=== PATIENT | female | born 1960 | race Caucasian/White ===

== ENCOUNTER 2018-07-25 11:47 | Inpatient (IN) | payer OTHER, SELFPAY ==
[2018-07-25] VITALS (7 sets, daily range): BP systolic 111–137; BP diastolic 57–112; PULSE 75–103; RESP 16–18; TEMP 36.6–36.8; O2SAT 95–98; BMI 27.3; BMI 26.1
--- NOTE | 2018-07-25 12:08 | CT_ITS ---
STUDY: CT ABDOMEN AND PELVIS WITHOUT CONTRAST REASON FOR EXAM: Female, 58 years old. Worsening right lower abdominal pain. RADIATION DOSAGE (If Supplied By Facility): CTDIvol = ( 7.62 ) mGy, DLP = ( 386.46 ) mGycm TECHNIQUE: Transaxial images were obtained from the dome of the diaphragm to the symphysis pubis without oral contrast, and without intravenous contrast. Sagittal and coronal images were reconstructed. Individualized dose optimization techniques were used for this CT. COMPARISON: None. FINDINGS: Minimal degree of increased markings at the lung bases suggestive of either mild scarring and/or linear atelectasis. The visualized portions of the heart are within normal limits. Normal liver. The patient is status post cholecystectomy. Normal spleen. Normal pancreas. Normal bilateral adrenal glands. Normal right kidney. Normal left kidney. There is a small hiatal hernia. Normal small intestine. Increased markings are seen within the mesenteric fat surrounding the descending colon distal to the ilio cecal valve. There is evidence of scattered diverticula in the ascending colon. This is suggestive of diverticulitis of the descending colon. No focal fluid collection or abscess is seen. Sigmoid diverticulosis. There is evidence of a retrocecal appendix. This is normal. There is diffuse atherosclerotic calcification of the abdominal aorta, without a demonstrated aneurysm. Normal inferior vena cava. Normal retroperitoneum. Normal urinary bladder. There is a small umbilical hernia containing fat. Normal osseous structures. CT/Abdomen/Pelvis without Cont IMPRESSION: Findings in keeping with diverticulitis affecting the descending colon as described. Normal appearance of the retrocecal appendix. Electronically Signed: Will Arango MD at 13:15 EST Tel [phone], Service support ,
--- NOTE | 2018-07-25 12:12 | ED.DCSUM_ITS ---
- ER Visit Summary Date of Service: 07/25/18 Chief Complaint: [] Right-sided abdominal pain for 1 week History of Present Illness: The patient is a 58 F [] right side abdominal pain for 1 week that is nonspecific it is been constant nothing makes it better or worse she is been able to eat she has had no fever no nausea or vomiting normal bowel bladder habits, prior history for cholecystectomy years ago and history of kidney stones or other GI ailments no other complaints no antibiotics no exposures to anyone who is been ill although she does report early June she did receive a flu vaccination since that time she is felt as if she has a constant flu Physical Examination: [] General, no distress resting comfortably HEENT is generally unremarkable The neck is supple no adenopathy Cardiovascular, regular rate and rhythm Lungs, clear bilateral Abdomen, soft, there is discomfort to the right lower abdomen there is some voluntary guarding there is no obvious mass, the rest exams unremarkable Extremities, no clubbing cyanosis or edema Neurologic, awake alert answering questions appropriately moving all 4 extremities Test Results: [] Emergency Department Course and Treatment: [] Her complaints IV fluids pain management CT scan urinalysis The lab results are generally unremarkable see those reports, the CT scan shows what appears to be right-sided colonic inflammation and diverticulitis, she is medicated with Dilaudid twice she received IV Cipro and metronidazole I discussed inpatient versus outpatient management with her she indicates the pain is still very severe despite the IV fluids the IV management she does not feels if she can be discharged home, at this time I spoke with hospitalist service to see her and determine disposition Treatment Plan: [] Disposition: [] Admit pending hospitalist evaluation Impression: [] Right side abdominal pain, right colonic inflammation and diverticulitis This note was generated with [employer] dictation software. It may contain incorrect words, spelling, and punctuation that were not noted in review of the chart prior to signing ED Disposition - Plan for ED Patient: Chief Complaint: Abd Pain Referrals: Ibeth Barfield MD [Primary Care Provider] -
[2018-07-25] MEDS: 0.9% Normal Saline 1,000 ML 1000 ML IV (12:23)
[2018-07-25] MEDS: Ondansetron 4 MG/2 ML Vial IV ×2 (12:30→15:26)
[2018-07-25] MEDS: HYDROmorphone 0.5 MG/0.5 ML SYRINGE IV ×2 (12:31→15:22)
[2018-07-25 12:34] LABS: Absolute Lymphocyte Count 1.27 X10^3/ul (0.83-4.51); Absolute Neutrophil Count 6.3 X10^3/uL (2.0-7.7); Basophil# 0.02 X10^3/uL; Basophil% 0.2 % (0-1); Eosinophil# 0.05 X10^3/uL; Eosinophils% 0.6 % (0-5); Hematocrit 42.9 % (37-47); Hemoglobin 13.8 g/dl (12.0-15.0); Lymphocyte # 1.27 X10^3/ul (4.0); Lymphocyte % 15.5 % (19-41); Mean Corp Hgb Conc 32.2 g/gl (32-36); Mean Corpuscular Hgb 32.5 pg (27.0-32.0); Mean Corpuscular Volume 101.2 fL (81-99); Monocyte# 0.54 X10^3/uL; Monocyte% 6.6 % (0-10); Neutrophil # 6.32 X10^3/uL (2.7-7.7); Platelet Count 201 K/mm3 (150-450); RBC Distribution Width SD 47.4 fl (35.1-43.9); Red Blood Count 4.24 M/mm3 (4.2-5.4); White Blood Count 8.2 K/mm3 (4.4-11.0)
[2018-07-25 12:35] LABS: POSITIVE COUNT NO; POSITIVE DIFFERENTIAL NO; POSITIVE MORPHOLOGY NO
[2018-07-25 12:45] LABS: Anion Gap 8 (5-15); BUN 18 mg/dL (7-18); BUN/Creat Ratio 16.4 RATIO (10-20); Calcium,Total 8.5 mg/dL (8.5-10.1); Chloride 113 mmol/L (98-107); EST Glomerular Filtration Rate 55 mL/min (>60); Est Glom Filt Rate - Afr Amer 66 mL/min (>60); Estimated Creatinine Clearance 51.39 ml/min; Glucose 103 mg/dL (74-106); Lipase 134 U/L (73-393); Potassium 4.1 mmol/L (3.5-5.1); Sodium Level 142 mmol/L (136-145)
[2018-07-25 13:47] LABS: Mucous, Urine 0 SEEN /hpf (<or=2+); Red Blood Cells-Urine 0 SEEN /hpf (0-5); Squamous Epithelial Cells - UA 0 SEEN /hpf (5-10); White Blood Cells 0 SEEN /hpf (0-5)
[2018-07-25 13:49] LABS: Color, Urine Yellow (Yellow); Glucose, Dipstick Normal (Normal); Ketone-Dipstick Negative (Negative); Leukocyte Esterase-Dipstick Negative /ul (Negative); Nitrite-Dipstick Negative (Negative); Occult Blood-Urine Negative /ul (Negative); Protein-Dipstick Negative (Negative); Specific Gravity, Urine 1.015 (1.002-1.030); Urine Bilirubin Dipstick Negative (Negative); Urine Clarity Clear (Clear); Urine Urobilinogen Normal (Normal); Urine pH 6.5 (5.0 - 8.0)
[2018-07-25 13:56] LABS: Bacteria RARE /hpf (None Seen)
--- NOTE | 2018-07-25 15:08 | PCM.HP.STD ---
Problem List (1) Diverticulitis Status: Acute (2) Anxiety and depression Status: Acute (3) Chronic back pain Status: Chronic Qualifiers: Sciatica laterality: sciatica laterality unspecified History of Present Illness Date of Admission: 07/25/18 Chief Complaint: Right sided abdominal pain ongoing for 1 week The patient is a 58 year old F past medical history of anxiety/depression, chronic back pain/pain syndrome who comes in with complaints of right-sided abdominal pain started more than a week ago. She was unable to lie on the right side to sleep. Denied any associated fever or chills or nausea or vomiting. She has a history of laparoscopic cholecystectomy and has since had chronic diarrhea. Pain is severe and unbearable. She has history of colon colonoscopy done 3 years ago in the [facility] system and a polyp was removed and she is due to have another colonoscopy done soon but there has been pushed to the end of the year. Vitals in the ED showed temperature 97.9 F, heart rate of 103, blood pressure 137/112, respiratory rate 18, SPO2 98% on room air. Admitting blood work showed RBC count of 8.2, hemoglobin 13.8, MCV 101.2, platelet count 201, sodium 142, potassium 4.1, chloride 113, bicarb 21, BUN 18, creatinine 1.10, baseline of 0.9. CT scan of the abdomen and pelvis shows diverticulitis of the ascending colon distal to the ileocecal valve. Past Medical History Past Medical History (Chronic Problems): Chronic Problems Chronic back pain (Chronic) Allergies venom-honey bee [bee venom (honey bee)] Allergy (Verified 07/25/18 11:50) Unknown morphine Adverse Reaction (Verified 07/25/18 11:50) Nausea Home Medications: Ambulatory Orders Medication Instructions Recorded ALPRAZolam [Xanax] 0.5 mg PO BID 05/15/14 Diltiazem CD [Cardizem CD] 180 mg PO DAILY 05/15/14 Duloxetine Hcl [Cymbalta] 60 mg PO BID 05/15/14 Gabapentin [Neurontin] 900 mg PO BIDCM 05/15/14 Topiramate [Topamax] 200 mg PO BID 05/15/14 proMETHazine tablet [Phenergan] 25 mg PO Q6H PRN PRN #10 tablet 05/15/14 Colestipol Tablet [Colestid Tablet] 3 tab PO DAILY 07/25/18 Fluticasone 0.05% [Flonase Nasal 2 spray NASAL DAILY 07/25/18 [place]] Sumatriptan Succinate [Imitrex] 100 mg PO X1 PRN 07/25/18 Surgical History: cholecystectomy, - - colonoscopy Psychiatric History: Anxiety, Depression CHANNEL MANAGER History: No pertinent CHANNEL MANAGER history Lives: Spouse/ Significant Other Smoking Status: Former smoker Tobacco Use: Non-smoker Alcohol: None Drugs: None - *Family History Maternal History Items: - - Brain aneurysm Paternal History Items: Heart Disease Review of Systems Constitutional: Reports: Anorexia, Weakness. Denies: Chills, Fever, Night Sweats, Weight Change Eyes: Denies: Blurred vision, Cataracts, Conjunctivae Inflammation, Pain, Redness HEENT: Denies: Difficulty Hearing, Difficulty Swallowing, Head Aches, Hearing Changes, Sinus Congestion, Sinus Drainage Cardiovascular: Denies: Chest Pain, Claudication, Chest Pressure, Orthopnea, Palpitations, Paroxysmal Noc. Dyspnea Respiratory: Denies: Cough, Hemoptysis, Shortness of Breath, Shortness of breath at rest, Shortness of breath upon exertion, Sputum production Gastrointestinal: Denies: Abdominal Pain, Constipation, Hematemesis, Hematochezia, Nausea, Vomiting Genitourinary: Denies: Dysuria, Frequency, Incontinence Musculoskeletal: Denies: Joint Pain, Joint stiffness, Joint swelling, Joint Tenderness Skin: Denies: Rash, Wounds Neurological: Denies: Numbness, Tingling, Focal weakness Psychiatric: Denies: Anxiety, Depression, Homicidal Ideations, Suicidal Ideations Hematologic/ Lymphatic: Denies: Easy Bruising, Easy Bleeding VTE Information - Inpt Only VTE Present on Admission: No VTE Pharm Prophylaxis ordered?: Yes Patient Problems: Active and Suspected Problems Diverticulitis (Acute) Anxiety and depression (Acute) - Physical Exam General: Alert, Oriented x3, Cooperative, No apparent distress HEENT: Atraumatic, PERRLA, EOMI, Normocephalic Oral: Moist Mucosa Neck: Supple, No JVD, Negative Carotid Bruits Lungs: Clear to auscultation, Normal air movement Cardiovascular: Regular rate, Regular Rhythm, Normal S1, Normal S2, No murmurs Abdomen: Bowel Sounds Present, Soft, Non-Distended, No Hepato-splenomegaly, Tender - Right lower and flank tenderness with guarding with but no rebound tenderness Extremities: No edema Skin: No rashes, No breakdown Musculoskeletal: No Tenderness to Palpation of Joints or Extremities Lymphatic: No Cervical, Supraclavicular, or Inguinal Adenopathy Neurological: Cranial nerves II-XII grossly intact, Neuro grossly intact Psych/Mental Status: Normal Affect, Appropriate Vital Signs Temp Pulse Resp BP Pulse Ox 97.9 F 78 16 120/73 96 07/25/18 11:47 07/25/18 14:00 07/25/18 14:00 07/25/18 14:00 07/25/18 14:00 Oxygen Delivery Method Room Air Weight: 74.389 kg Body Mass Index (BMI) 27.3 Laboratory Tests Past 24 Hrs 07/25/18 07/25/18 07/25/18 12:25 12:25 13:35 WBC 8.2 RBC 4.24 Hgb 13.8 Hct 42.9 MCV 101.2 H MCH 32.5 H MCHC 32.2 RDW 13.0 RDW Differential 47.4 H Plt Count 201 MPV 10.0 Immature Gran % (Auto) 0.100 Neut % (Auto) 77.0 H Lymph % (Auto) 15.5 L [place] % (Auto) 6.6 Eos % (Auto) 0.6 Baso % (Auto) 0.2 Absolute Neuts (auto) 6.3 Absolute Lymphs (auto) 1.27 Total Counted Not Reportable Sodium 142 Potassium 4.1 Chloride 113 H Carbon Dioxide 21.0 Anion Gap 8 BUN 18 Creatinine 1.10 H Estim Creat Clear Calc 51.39 Est GFR (MDRD) Af Amer 66 Est GFR (MDRD) Non-Af 55 L BUN/Creatinine Ratio 16.4 Glucose 103 Calcium 8.5 Lipase 134 Urine Color Yellow Urine Clarity Clear Urine pH 6.5 Ur Specific [place] 1.015 Urine Protein Negative Urine Glucose (UA) Normal Urine Ketones Negative Urine Occult Blood Negative Urine Nitrite Negative Urine Bilirubin Negative Urine Urobilinogen Normal Ur Leukocyte Esterase Negative Urine RBC 0 SEEN Urine WBC 0 SEEN Ur Squamous Epith Cells 0 SEEN Urine Bacteria RARE Urine Mucus 0 SEEN Assessment/Plan All Active Problems Diverticulitis (Acute) Anxiety and depression (Acute) 58 year old F with past medical history of anxiety/depression, chronic back pain/pain syndrome who comes in with complaints of right-sided abdominal pain started more than a week ago. 1. Right-sided abdominal pain secondary to acute diverticulitis, history of colonoscopy 2 years ago that showed one polyp, no fevers or chills, no leukocytosis Plan: Admit to [facility] floor, pain control with IV morphine as needed, oxycodone as needed, IV Cipro and Flagyl, n.p.o., bowel rest, advance diet as tolerated Labs in a.m. Patient will need colonoscopy in 6-8 weeks. 2. Anxiety/depression, on Xanax, Cymbalta, gabapentin, topiramate 3. Chronic diarrhea status post cholecystectomy, on colestipol 4. Hypertension, on Cardizem, continue same, monitor vitals closely 5. Dehydration, slight elevation in creatinine, continue on IV fluids, repeat BMP in a.m. 6. DVT PPx- Heparin SC Code Visit Inpatient E&M: 05043 Init Hosp L3
[2018-07-25] MEDS: Ciprofloxacin 400 MG/200 ML BAG 200 MG IV ×2 (15:22→21:15)
[2018-07-25] MEDS: 0.9% Normal Saline 1,000 ML 100 ML IV (17:17)
[2018-07-25] MEDS: Morphine 2 MG/ML Syringe 1 MG IV ×2 (17:53→20:45)
[2018-07-25] MEDS: Gabapentin 300 MG Capsule 900 MG PO (17:53)
[2018-07-25] MEDS: Rizatriptan Benzoate 10 MG Tablet PO (18:38)
[2018-07-25] MEDS: Topiramate 200 MG Tablet PO (21:03)
[2018-07-25] MEDS: Heparin Injection (Vial) 5,000 UNIT/ML VIAL 5000 UNIT SC (21:03)
[2018-07-25] MEDS: proMETHazine 25 MG/ML Syringe 6.25 MG IV (21:30)
[2018-07-26] VITALS (8 sets, daily range): BP systolic 107–130; BP diastolic 64–78; PULSE 64–76; RESP 16; TEMP 36.7–37.1; O2SAT 95–98
[2018-07-26] MEDS: Morphine 2 MG/ML Syringe 1 MG IV ×2 (01:18→06:18)
[2018-07-26] MEDS: Rizatriptan Benzoate 10 MG Tablet PO ×2 (04:42→19:47)
[2018-07-26] MEDS: 0.9% Normal Saline 1,000 ML 100 ML IV ×2 (04:49→05:19)
[2018-07-26] MEDS: Heparin Injection (Vial) 5,000 UNIT/ML VIAL 5000 UNIT SC ×3 (06:10→21:09)
[2018-07-26 06:21] LABS: Absolute Lymphocyte Count 1.08 X10^3/ul (0.83-4.51); Basophil# 0.01 X10^3/uL; Basophil% 0.2 % (0-1); Eosinophil# 0.04 X10^3/uL; Eosinophils% 0.9 % (0-5); Hematocrit 42.2 % (37-47); Hemoglobin 13.3 g/dl (12.0-15.0); Lymphocyte # 1.08 X10^3/ul (4.0); Lymphocyte % 23.6 % (19-41); Mean Corp Hgb Conc 31.5 g/gl (32-36); Mean Corpuscular Hgb 33.2 pg (27.0-32.0); Mean Corpuscular Volume 105.2 fL (81-99); Mean Platelet Vol. 10.3 fl (6.2-12.0); Monocyte% 8.8 % (0-10); Neutrophil # 3.03 X10^3/uL (2.7-7.7); Neutrophil % 66.3 % (47-70); Platelet Count 154 K/mm3 (150-450); RBC Distribution Width CV 13.2 % (11.6-14.6); RBC Distribution Width SD 50.4 fl (35.1-43.9); Red Blood Count 4.01 M/mm3 (4.2-5.4); White Blood Count 4.6 K/mm3 (4.4-11.0)
[2018-07-26 06:22] LABS: POSITIVE COUNT YES; POSITIVE DIFFERENTIAL NO; POSITIVE MORPHOLOGY NO
[2018-07-26 06:23] LABS: Differential Indicated SCAN CRITERIA MET
[2018-07-26 06:28] LABS: Anion Gap 10 (5-15); BUN 10 mg/dL (7-18); BUN/Creat Ratio 10.4 RATIO (10-20); Calcium,Total 8.1 mg/dL (8.5-10.1); Chloride 116 mmol/L (98-107); Creatinine, Serum 0.96 mg/dL (0.55-1.02); EST Glomerular Filtration Rate 64 mL/min (>60); Est Glom Filt Rate - Afr Amer 77 mL/min (>60); Estimated Creatinine Clearance 61.26 ml/min; Glucose 93 mg/dL (74-106); Potassium 4.1 mmol/L (3.5-5.1); Sodium Level 140 mmol/L (136-145)
[2018-07-26 06:40] LABS: Differential Comment SCAN; Platelet Morphology LARGE
--- NOTE | 2018-07-26 09:05 | PN_ITS ---
Patient Problems: Active and Suspected Problems Diverticulitis (Acute) Subjective: Chief complaint: Follow-up after admission for acute diverticulitis of the descending colon. Patient seen and examined. No acute events overnight. This morning, she is still complaining of right lower quadrant/right lumbar abdominal pain, 9 out of 10 in severity, aggravated by movement or taking a deep breath without associated nausea or vomiting. She denies fever chills. Vital signs are stable. - Physical Exam General: Alert, Oriented x3, Cooperative, - - He is in moderate pain. HEENT: Atraumatic, PERRLA, EOMI, Normocephalic Oral: Moist Mucosa, No Gingival or Mucosal Lesions/ Ulcerations Neck: Supple, No JVD, Negative Carotid Bruits, Trachea Midline, Thyroid Normal Size and Texture Lungs: Clear to auscultation, No rhonchi, No wheeze, No rales, Diminished Cardiovascular: Regular rate, Regular Rhythm, Normal S1, Normal S2, No murmurs, PMI Normal Abdomen: Bowel Sounds Present, Soft, Non-Distended, No Hepato-splenomegaly, Tender - Tenderness at the right lower quadrant, no guarding or rigidity. Extremities: No clubbing, No cyanosis, No edema Skin: No rashes, No breakdown Lymphatic: No Cervical, Supraclavicular, or Inguinal Adenopathy Neurological: Cranial nerves II-XII grossly intact, Motor Exam 5/5 strength throughout Psych/Mental Status: Normal Affect, Appropriate, Alert and oriented to time, place, person, mood and affect Vital Signs Temp Pulse Resp BP Pulse Ox 98.8 F 71 16 128/78 H 97 07/26/18 08:07 07/26/18 08:07 07/26/18 08:07 07/26/18 08:07 07/26/18 08:07 Oxygen Delivery Method Room Air Weight: 162 lb 0.636 oz Body Mass Index (BMI) 26.1 Intake and Output for Last 24 Hours 07/24/18 07/25/18 07/26/18 23:59 23:59 23:59 Intake Total 1382 / 1382 Balance 1382 / 1382 Laboratory Tests Past 24 Hrs 07/25/18 07/25/18 07/25/18 12:25 12:25 13:35 WBC 8.2 RBC 4.24 Hgb 13.8 Hct 42.9 MCV 101.2 H MCH 32.5 H MCHC 32.2 RDW 13.0 RDW Differential 47.4 H Plt Count 201 MPV 10.0 Immature Gran % (Auto) 0.100 Neut % (Auto) 77.0 H Lymph % (Auto) 15.5 L [place] % (Auto) 6.6 Eos % (Auto) 0.6 Baso % (Auto) 0.2 Absolute Neuts (auto) 6.3 Absolute Lymphs (auto) 1.27 Total Counted Not Reportable Differential Comment Plt Morphology Comment Sodium 142 Potassium 4.1 Chloride 113 H Carbon Dioxide 21.0 Anion Gap 8 BUN 18 Creatinine 1.10 H Estim Creat Clear Calc 51.39 Est GFR (MDRD) Af Amer 66 Est GFR (MDRD) Non-Af 55 L BUN/Creatinine Ratio 16.4 Glucose 103 Calcium 8.5 Lipase 134 Urine Color Yellow Urine Clarity Clear Urine pH 6.5 Ur Specific [place] 1.015 Urine Protein Negative Urine Glucose (UA) Normal Urine Ketones Negative Urine Occult Blood Negative Urine Nitrite Negative Urine Bilirubin Negative Urine Urobilinogen Normal Ur Leukocyte Esterase Negative Urine RBC 0 SEEN Urine WBC 0 SEEN Ur Squamous Epith Cells 0 SEEN Urine Bacteria RARE Urine Mucus 0 SEEN 07/26/18 07/26/18 05:50 05:50 WBC 4.6 RBC 4.01 L Hgb 13.3 Hct 42.2 MCV 105.2 H MCH 33.2 H MCHC 31.5 L RDW 13.2 RDW Differential 50.4 H Plt Count 154 MPV 10.3 Immature Gran % (Auto) 0.200 Neut % (Auto) 66.3 Lymph % (Auto) 23.6 [place] % (Auto) 8.8 Eos % (Auto) 0.9 Baso % (Auto) 0.2 Absolute Neuts (auto) 3.0 Absolute Lymphs (auto) 1.08 Total Counted Not Reportable Differential Comment SCAN Plt Morphology Comment LARGE Sodium 140 Potassium 4.1 Chloride 116 H Carbon Dioxide 14.0 L Anion Gap 10 BUN 10 Creatinine 0.96 Estim Creat Clear Calc 61.26 Est GFR (MDRD) Af Amer 77 Est GFR (MDRD) Non-Af 64 BUN/Creatinine Ratio 10.4 Glucose 93 Calcium 8.1 L Lipase Urine Color Urine Clarity Urine pH Ur Specific [place] Urine Protein Urine Glucose (UA) Urine Ketones Urine Occult Blood Urine Nitrite Urine Bilirubin Urine Urobilinogen Ur Leukocyte Esterase Urine RBC Urine WBC Ur Squamous Epith Cells Urine Bacteria Urine Mucus Clinical Impression(s) from Imaging Studies Abdomen/Pelvis CT 07/25/18 12:08 IMPRESSION: Findings in keeping with diverticulitis affecting the descending colon as described. Normal appearance of the retrocecal appendix. Electronically Signed: Will Arango MD at 13:15 EST Tel [phone], Service support , Medical Necessity - Tobacco Use Tobacco Use: Non-smoker Assessment/Plan All Active Problems Diverticulitis (Acute) This is a 58 years old female patient admitted because of right-sided abdominal pain and she was found to have acute diverticulitis of the descending colon. #1 acute diverticulitis of the descending colon: She is on IV ciprofloxacin and IV Flagyl. She is on IV fluids and IV morphine as needed for pain, kept on n.p.o. Her pain is well controlled. Her routine blood work was unremarkable, no leukocytosis. Lipase was normal. Vital signs are stable, afebrile. CT scan abdomen and pelvis with contrast revealed findings consistent with acute diverticulitis of the descending colon, normal appearance of retrocecal appendix. Plan: DC IV morphine, start IV Dilaudid, LFT, okay for ice chips and sips of water. #2 hypertension: Blood pressure stable, continue Cardizem. #3 migraine headaches: Stable, continue Topamax and Maxalt. #4 anxiety/depression: Xanax and Cymbalta held because she is n.p.o. #5 DVT prophylaxis: Subcu heparin. This note was generated with [employer] dictation software. It may contain incorrect words, spelling, and punctuation that were not noted in checking the note before signing. Code Visit Inpatient E&M: 90993 Subs Hosp L2
[2018-07-26] MEDS: Gabapentin 300 MG Capsule 900 MG PO ×2 (09:19→17:12)
[2018-07-26] MEDS: Multivitamins,Ther W-Minerals Tablet 1 TABLET PO (09:19)
[2018-07-26] MEDS: Ciprofloxacin 400 MG/200 ML BAG 200 MG IV ×2 (09:20→22:33)
[2018-07-26] MEDS: dilTIAZem CD 180 MG Capsule PO (09:20)
[2018-07-26] MEDS: Topiramate 200 MG Tablet PO ×2 (09:20→21:06)
[2018-07-26] MEDS: HYDROmorphone 1 MG/ML Syringe IV ×3 (09:21→21:10)
[2018-07-26] MEDS: 0.9% NaCl Peripheral Flush Adult/Peds IV (09:21)
[2018-07-26] MEDS: ALPRAZolam 0.5 MG Tablet PO (11:21)
[2018-07-26] MEDS: Budesonide 3 MG CAPSULE.EC 9 MG PO (11:21)
[2018-07-26 12:05] LABS: AST(SGOT) 510 U/L (15-37); Alanine Aminotransfer ALT/SGPT 325 U/L (13-56); Albumin, Serum 2.8 g/dL (3.2-5.0); Alkaline Phosphatase 346 U/L (45-117); Bilirubin, Direct 1.29 mg/dL (0.00-0.30); Globulin 3.2 g/dL (2.2-4.2)
--- NOTE | 2018-07-26 14:10 | CASEMGMT ---
BERNARDO MEDINA Face to Face with patient for initial transition planning/care coordination assessment. RN CM introduced self and role at [facility] [place]. Patient lying in bed, alert and oriented. Patient willing to participate in assessment and is able to answer all questions appropriately. Care providers, pharmacy, and demographics verified. Patient wishes to discharge home, denies need for home health at this time. Patient states she has no further needs or concerns at this time. CM to follow for discharge planning needs that may arise. PCP: [facility] Specialists: None Preferred Pharmacy: [facility] Insurance: MMO Prescription Benefit: MMO Living Will/HPOA: None LNOK: Living Arrangements: Patient lives with in 2 story house, able to navigate stairs. Independent at home Transportation: Self/ DME/HHC: Patient has shower chair, raised toilet seat, cane, walker. Disposition Plan: Patient to discharge home with family support and follow-up plans in place. Tonia DUKES, RN, CM
--- NOTE | 2018-07-26 14:15 | US_ITS ---
STUDY: ABDOMINAL ULTRASOUND - RIGHT UPPER QUADRANT REASON FOR VISIT: Female, 58 years old. Elevated liver function tests TECHNIQUE: Transverse and longitudinal imaging of the right upper quadrant was performed using real-time ultrasound. COMPARISON: CT abdomen and pelvis dated July 25, 2018 FINDINGS: Liver: The liver measures at least 16 cm. There is increased echogenicity of the liver. The direction of portal flow is hepatopetal. There is no demonstrated mass in the liver. Gallbladder: The patient has had prior cholecystectomy. The gallbladder wall measures mm. There is a negative sonographic Dowd's sign. There is no demonstrated pericholecystic fluid. There are no abnormalities in the lumen of the gallbladder. Common Bile Duct (C.B.D.): The common bile duct measures 9-10 mm. Pancreas: The visualized pancreas is within normal limits. There is no demonstrated mass in the pancreas. Right Kidney: The right kidney measures 10.1 cm. The right cortex measures 1.2 cm. There is no demonstrated mass in the right kidney. There is no dilatation of the collecting system. There is no demonstrated free fluid. US/Liver IMPRESSION: The liver is increased in echogenicity which can be seen with fatty infiltration. No masses are seen in the liver. The common bile duct measures 9-10 mm in diameter which is not unexpected after cholecystectomy. Electronically Signed: Isabell Harden MD at 20:29 EST Tel Direct: [phone], Service support ,
[2018-07-26] MEDS: Zolpidem Tartrate 5 MG Tablet PO (22:40)
[2018-07-27 03:00] VITALS: BP 103/64; PULSE 73; RESP 16; TEMP 36.6; O2SAT 94
[2018-07-27] MEDS: HYDROmorphone 1 MG/ML Syringe IV ×4 (05:03→21:05)
[2018-07-27] MEDS: Heparin Injection (Vial) 5,000 UNIT/ML VIAL 5000 UNIT SC ×3 (05:03→21:05)
[2018-07-27] MEDS: 0.9% Normal Saline 1,000 ML 100 ML IV ×2 (05:09→17:37)
[2018-07-27] MEDS: proMETHazine 25 MG Tablet PO (08:41)
[2018-07-27] MEDS: Topiramate 200 MG Tablet PO ×2 (08:42→21:06)
[2018-07-27] MEDS: Budesonide 3 MG CAPSULE.EC 9 MG PO (08:42)
[2018-07-27] MEDS: Gabapentin 300 MG Capsule 900 MG PO ×2 (08:42→17:34)
[2018-07-27] MEDS: dilTIAZem CD 180 MG Capsule PO (08:45)
[2018-07-27 08:49] VITALS: BP 124/78; PULSE 59; RESP 16; TEMP 36.5; O2SAT 100
[2018-07-27 08:52] LABS: Absolute Lymphocyte Count 1.11 X10^3/ul (0.83-4.51); Absolute Neutrophil Count 2.7 X10^3/uL (2.0-7.7); Basophil# 0.02 X10^3/uL; Basophil% 0.5 % (0-1); Eosinophil# 0.08 X10^3/uL; Eosinophils% 1.9 % (0-5); Hematocrit 38.2 % (37-47); Hemoglobin 12.4 g/dl (12.0-15.0); Lymphocyte # 1.11 X10^3/ul (4.0); Lymphocyte % 26.2 % (19-41); Mean Corp Hgb Conc 32.5 g/gl (32-36); Mean Corpuscular Hgb 33.2 pg (27.0-32.0); Mean Corpuscular Volume 102.1 fL (81-99); Mean Platelet Vol. 9.8 fl (6.2-12.0); Monocyte# 0.31 X10^3/uL; Monocyte% 7.3 % (0-10); Neutrophil % 63.9 % (47-70); Platelet Count 178 K/mm3 (150-450); RBC Distribution Width CV 12.5 % (11.6-14.6); RBC Distribution Width SD 46.1 fl (35.1-43.9); Red Blood Count 3.74 M/mm3 (4.2-5.4); White Blood Count 4.2 K/mm3 (4.4-11.0)
[2018-07-27 08:56] LABS: POSITIVE COUNT NO; POSITIVE DIFFERENTIAL NO; POSITIVE MORPHOLOGY NO
--- NOTE | 2018-07-27 09:04 | PCM.PROGNOTE ---
Patient Problems: Active and Suspected Problems Diverticulitis large intestine (Acute) Diverticulitis (Acute) Subjective: Chief complaint: Follow-up after admission for acute diverticulitis of the ascending colon and elevated LFT. Patient seen and examined. No acute events overnight. She still complaining of right-sided abdominal pain but slightly improved. She has been nauseated. Denies fever chills. No chest pain or shortness of breath. Her vital signs are stable. - Physical Exam General: Alert, Oriented x3, Cooperative, - - She is in moderate pain. HEENT: Atraumatic, PERRLA, EOMI, Normocephalic Oral: Moist Mucosa, No Gingival or Mucosal Lesions/ Ulcerations Neck: Supple, No JVD, Negative Carotid Bruits, Trachea Midline, Thyroid Normal Size and Texture Lungs: Clear to auscultation, Normal air movement, No rhonchi, No wheeze, No rales, Diminished Cardiovascular: Regular rate, Regular Rhythm, Normal S1, Normal S2 Abdomen: Bowel Sounds Present, Soft, Non-Distended, No Hepato-splenomegaly, Tender - Right-sided tenderness, no guarding or rigidity. No rebound tenderness. Extremities: No clubbing, No cyanosis, No edema Skin: No rashes, No breakdown Lymphatic: No Cervical, Supraclavicular, or Inguinal Adenopathy Neurological: Cranial nerves II-XII grossly intact, Motor Exam 5/5 strength throughout Psych/Mental Status: Normal Affect, Appropriate, Alert and oriented to time, place, person, mood and affect Vital Signs Temp Pulse Resp BP Pulse Ox 97.7 F L 59 L 16 124/78 H 100 07/27/18 08:49 07/27/18 08:49 07/27/18 08:49 07/27/18 08:49 07/27/18 08:49 Oxygen Delivery Method Room Air Weight: 162 lb 0.636 oz Body Mass Index (BMI) 26.1 Intake and Output for Last 24 Hours 07/25/18 07/26/18 07/27/18 23:59 23:59 23:59 Intake Total 2369 / 2369 1661 / 1661 Balance 2369 / 2369 1661 / 1661 Laboratory Tests Past 24 Hrs 07/26/18 07/27/18 07/27/18 11:10 08:30 08:30 WBC 4.2 L RBC 3.74 L Hgb 12.4 Hct 38.2 MCV 102.1 H MCH 33.2 H MCHC 32.5 RDW 12.5 RDW Differential 46.1 H Plt Count 178 MPV 9.8 Immature Gran % (Auto) 0.200 Neut % (Auto) 63.9 Lymph % (Auto) 26.2 [place] % (Auto) 7.3 Eos % (Auto) 1.9 Baso % (Auto) 0.5 Absolute Neuts (auto) 2.7 Absolute Lymphs (auto) 1.11 Total Counted Not Reportable Sodium Pending Potassium Pending Chloride Pending Carbon Dioxide Pending Anion Gap Pending BUN Pending Creatinine Pending Est GFR (MDRD) Af Amer Pending Est GFR (MDRD) Non-Af Pending BUN/Creatinine Ratio Pending Glucose Pending Calcium Pending Total Bilirubin 1.90 H Pending Direct Bilirubin 1.29 H AST 510 H Pending ALT 325 H Pending Alkaline Phosphatase 346 H Pending Total Protein 6.0 L Pending Albumin 2.8 L Pending Globulin 3.2 Clinical Impression(s) from Imaging Studies Liver Ultrasound 07/26/18 14:15 IMPRESSION: The liver is increased in echogenicity which can be seen with fatty infiltration. No masses are seen in the liver. The common bile duct measures 9-10 mm in diameter which is not unexpected after cholecystectomy. Electronically Signed: Isabell Harden MD at 20:29 EST Tel Direct: [phone], Service support , ADDENDUM: 07/26/183 Medical Necessity - Tobacco Use Smoking Status: Former smoker Tobacco Use: Non-smoker Assessment/Plan All Active Problems Diverticulitis large intestine (Acute) Diverticulitis (Acute) This is a 58 years old female patient admitted because of right-sided abdominal pain and she was found to have acute diverticulitis of the descending colon. #1 acute diverticulitis of the ascending colon: Remained on IV ciprofloxacin and IV Flagyl. Her vital signs are stable, afebrile. Repeat routine blood work was again unremarkable, no leukocytosis. Her abdominal pain minimally improved. Lipase was normal. General surgery consulted, appreciate recommendations. Plan: Continue same treatment, will start clear liquids. #2 elevated LFT: This could be due to irritation of the biliary tree because of adjacent inflamed ascending colon. Ultrasound liver revealed CBD diameter of 9-10 mm which is common after cholecystectomy, otherwise no acute pathology. LFT is trending down. Plan to continue monitor. #3 hypertension: Blood pressure stable, continue Cardizem. #4 migraine headaches: Stable, continue Topamax and Maxalt. #5 anxiety/depression: Resume Xanax and Cymbalta.. #6 DVT prophylaxis: Subcu heparin. This note was generated with [employer] dictation software. It may contain incorrect words, spelling, and punctuation that were not noted in checking the note before signing. Code Visit Inpatient E&M: 44517 Subs Hosp L2
[2018-07-27] MEDS: Ciprofloxacin 400 MG/200 ML BAG 200 MG IV ×2 (09:11→22:57)
[2018-07-27 09:17] LABS: ALB/GLOB Ratio 0.9 RATIO (0.9-2.4); AST(SGOT) 195 U/L (15-37); Alanine Aminotransfer ALT/SGPT 253 U/L (13-56); Albumin, Serum 2.9 g/dL (3.2-5.0); Alkaline Phosphatase 344 U/L (45-117); Anion Gap 11 (5-15); BUN 8 mg/dL (7-18); BUN/Creat Ratio 9.5 RATIO (10-20); Calcium,Total 8.2 mg/dL (8.5-10.1); Chloride 115 mmol/L (98-107); Creatinine, Serum 0.84 mg/dL (0.55-1.02); EST Glomerular Filtration Rate 75 mL/min (>60); Est Glom Filt Rate - Afr Amer 90 mL/min (>60); Estimated Creatinine Clearance 70.01 ml/min; Globulin 3.4 g/dL (2.2-4.2); Glucose 74 mg/dL (74-106); Potassium 3.9 mmol/L (3.5-5.1); Protein, Total 6.3 g/dL (6.4-8.2); Sodium Level 145 mmol/L (136-145)
--- NOTE | 2018-07-27 09:38 | CON.PCM_ITS ---
Problem List (1) Diverticulitis large intestine Status: Acute Qualifiers: Diverticulitis bleeding: without bleeding Diverticulitis complication: without perforation or abscess Qualified Code(s): K57.32 - Diverticulitis of large intestine without perforation or abscess without bleeding Reason for Consult Date of Consultation: 07/27/18 History of Present Illness: The patient is a 58 year old F past medical history of anxiety/depression, chronic back pain/pain syndrome who comes in with complaints of right-sided abdominal pain started more than a week ago. She was unable to lie on the right side to sleep. Denied any associated fever or chills or nausea or vomiting. She has a history of laparoscopic cholecystectomy and has since had chronic diarrhea. Pain is severe and unbearable. She has history of colon colonoscopy done 3 years ago in the [facility] and a polyp was removed and she is due to have another colonoscopy this July. CAT scan was completed which showed diverticulitis of the ascending colon. The appendix was retrocecal and appears to be spared and there is air with in it. There is some significant amount of streaky fat in the right upper quadrant. There was no signs of any free air. Her abdominal pain has slightly improved in the 24 hours since she has been admitted that she still is requiring IV narcotics. In addition she has had a very small bowel movement but has not been passing any flatus. It is still quite uncomfortable for her to sit up and move or take in deep breaths. Past Medical History Past Medical History (Chronic Problems): Chronic Problems Hypertension (Chronic) Migraine headache (Chronic) Anxiety and depression (Chronic) Chronic back pain (Chronic) Allergies venom-honey bee [bee venom (honey bee)] Allergy (Verified 07/25/18 11:50) Unknown morphine Adverse Reaction (Verified 07/25/18 11:50) Nausea Home Medications: Ambulatory Orders Medication Instructions Recorded ALPRAZolam [Xanax] 0.5 mg PO BID 05/15/14 Diltiazem CD [Cardizem CD] 180 mg PO DAILY 05/15/14 Duloxetine Hcl [Cymbalta] 60 mg PO BID 05/15/14 Gabapentin [Neurontin] 900 mg PO BIDCM 05/15/14 Topiramate [Topamax] 400 mg PO BID 05/15/14 proMETHazine tablet [Phenergan] 25 mg PO Q6H PRN PRN #10 tablet 05/15/14 Colestipol Tablet [Colestid Tablet] 3 tab PO DAILY 07/25/18 Fluticasone 0.05% [Flonase Nasal 2 spray NASAL DAILY 07/25/18 War] Sumatriptan Succinate [Imitrex] 100 mg PO X1 PRN 07/25/18 Surgical History: cholecystectomy, - - colonoscopy Psychiatric History: Anxiety, Depression PHYSICAL EDUCATION DEPARTMENT CHAIR History: No pertinent PHYSICAL EDUCATION DEPARTMENT CHAIR history Lives: Spouse/ Significant Other Smoking Status: Former smoker Tobacco Use: Non-smoker Alcohol: None Drugs: None - *Family History Maternal History Items: - - Brain aneurysm Paternal History Items: Heart Disease Review of Systems Constitutional: Denies: Chills, Fever, Weight Change Cardiovascular: Denies: Chest Pain, Chest Pressure, Chest Tightness, Palpitations Respiratory: Denies: Cough, Hemoptysis, Shortness of breath at rest, Shortness of breath upon exertion, Wheezing Gastrointestinal: Reports: Diarrhea - Patient has had chronic diarrhea ever since having her gallbladder removed., - - Patient is due for another colonoscopy given polyp removal 3 years ago. She was told that she will have to do it outside of [place] and under a general anesthetic. Endocrine: Denies: Heat/ Cold Intolerance, Polydipsia, Polyuria Hematologic/ Lymphatic: Denies: Adenopathy, Easy Bruising Patient Problems: Active and Suspected Problems Diverticulitis large intestine (Acute) Diverticulitis (Acute) - Physical Exam General: Alert, Oriented x3 Neck: Supple, No JVD Lungs: Clear to auscultation Cardiovascular: Regular rate, Regular Rhythm, No murmurs Abdomen: Bowel Sounds Present, Soft, Non-Distended, Hypoactive Bowel Sounds, Tender - She has no rebound or rigidity. I believe her tenderness is appropriate given the CAT scan findings. Vital Signs Temp Pulse Resp BP Pulse Ox 97.7 F L 59 L 16 124/78 H 100 07/27/18 08:49 07/27/18 08:49 07/27/18 08:49 07/27/18 08:49 07/27/18 08:49 Oxygen Delivery Method Room Air Weight: 162 lb 0.636 oz Body Mass Index (BMI) 26.1 Intake and Output for Last 24 Hours 07/25/18 07/26/18 07/27/18 23:59 23:59 23:59 Intake Total 2369 / 2369 1661 / 1661 Balance 236 / 2369 1661 / 1661 Laboratory Tests Past 24 Hrs 07/26/18 07/27/18 07/27/18 11:10 08:30 08:30 WBC 4.2 L RBC 3.74 L Hgb 12.4 Hct 38.2 MCV 102.1 H MCH 33.2 H MCHC 32.5 RDW 12.5 RDW Differential 46.1 H Plt Count 178 MPV 9.8 Immature Gran % (Auto) 0.200 Neut % (Auto) 63.9 Lymph % (Auto) 26.2 [place] % (Auto) 7.3 Eos % (Auto) 1.9 Baso % (Auto) 0.5 Absolute Neuts (auto) 2.7 Absolute Lymphs (auto) 1.11 Total Counted Not Reportable Sodium 145 Potassium 3.9 Chloride 115 H Carbon Dioxide 19.0 L Anion Gap 11 BUN 8 Creatinine 0.84 Estim Creat Clear Calc 70.01 Est GFR (MDRD) Af Amer 90 Est GFR (MDRD) Non-Af 75 BUN/Creatinine Ratio 9.5 L Glucose 74 Calcium 8.2 L Total Bilirubin 1.90 H 0.60 Direct Bilirubin 1.29 H AST 510 H 195 H ALT 325 H 253 H Alkaline Phosphatase 346 H 344 H Total Protein 6.0 L 6.3 L Albumin 2.8 L 2.9 L Globulin 3.2 3.4 Albumin/Globulin Ratio 0.9 Assessment/Plan All Active Problems Diverticulitis large intestine (Acute) Diverticulitis (Acute) Hopefully we will noticing continual improvement in the patient's physical exam while she is on her IV antibiotics. I believe it is okay if she would like to have some sips of liquid but no solid foods and no full liquids at this time. I have discussed with her that there is a slight chance that she may not get better he may require to have a surgery in which case she would more than likely need to have a right hemicolectomy. I am hopeful though that we will noticed that she improved in her physical exam given the fact that she is not tachycardic and she does not have an elevation in her temperature nor an elevation in her white count as of yet. The ultimate goal will be able to be discharging her home on oral antibiotics and then doing a repeat colonoscopy on her sometime in mid August.
[2018-07-27 10:11] LABS: Bilirubin, Direct 0.25 mg/dL (0.00-0.30)
[2018-07-27] MEDS: Rizatriptan Benzoate 10 MG Tablet PO (11:54)
[2018-07-27] MEDS: DULoxetine Hcl 60 MG Capsule PO ×2 (13:43→21:06)
[2018-07-27 14:00] VITALS: BP 145/79; PULSE 67; RESP 16; TEMP 36.7; O2SAT 98
[2018-07-27] MEDS: 0.9% NaCl Peripheral Flush Adult/Peds IV (14:33)
[2018-07-27] MEDS: HYDROcodone Bitartrate/Apap 5/325 Tablet PO (17:44)
[2018-07-27 20:00] VITALS: BP 129/64; PULSE 62; RESP 16; TEMP 36.6; O2SAT 97
[2018-07-27] MEDS: ALPRAZolam 0.5 MG Tablet PO (21:05)
[2018-07-28] MEDS: Rizatriptan Benzoate 10 MG Tablet PO
[2018-07-28] MEDS: Zolpidem Tartrate 5 MG Tablet PO
[2018-07-28 03:00] VITALS: BP 122/63; PULSE 59; RESP 16; TEMP 36.6; O2SAT 99
[2018-07-28] MEDS: Heparin Injection (Vial) 5,000 UNIT/ML VIAL 5000 UNIT SC ×3 (05:31→21:46)
[2018-07-28] MEDS: 0.9% Normal Saline 1,000 ML 100 ML IV ×2 (05:31→17:58)
[2018-07-28 07:17] LABS: AST(SGOT) 79 U/L (15-37); Alanine Aminotransfer ALT/SGPT 169 U/L (13-56); Albumin, Serum 2.8 g/dL (3.2-5.0); Alkaline Phosphatase 282 U/L (45-117); Bilirubin, Direct 0.18 mg/dL (0.00-0.30); Globulin 3.1 g/dL (2.2-4.2); Protein, Total 5.9 g/dL (6.4-8.2)
--- NOTE | 2018-07-28 08:34 | PCM.PN.SRG ---
Patient Problems: Active and Suspected Problems Diverticulitis large intestine (Acute) Diverticulitis (Acute) Subjective: Patient states that the right-sided abdominal pain has improved significantly she does have some pain just below her umbilicus. She has no nausea or vomiting she is tolerating clear liquids. Objective: Abdomen is much less tender today is soft positive bowel sounds there is no rebound guarding or peritoneal signs. - Physical Exam Vital Signs Temp Pulse Resp BP Pulse Ox 98 F 59 L 16 122/63 H 99 07/28/18 03:00 07/28/18 03:00 07/28/18 03:00 07/28/18 03:00 07/28/18 03:00 Oxygen Delivery Method Room Air Weight: 162 lb 0.636 oz Body Mass Index (BMI) 26.1 Intake and Output for Last 24 Hours 07/26/18 07/27/18 07/28/18 23:59 23:59 23:59 Intake Total 2369 / 2369 3649 / 3649 2364 / 2364 Balance 2369 / 2369 3649 / 3649 2364 / 2364 Laboratory Tests Past 24 Hrs 07/27/18 07/27/18 07/27/18 08:30 08:30 08:30 WBC 4.2 L RBC 3.74 L Hgb 12.4 Hct 38.2 MCV 102.1 H MCH 33.2 H MCHC 32.5 RDW 12.5 RDW Differential 46.1 H Plt Count 178 MPV 9.8 Immature Gran % (Auto) 0.200 Neut % (Auto) 63.9 Lymph % (Auto) 26.2 [place] % (Auto) 7.3 Eos % (Auto) 1.9 Baso % (Auto) 0.5 Absolute Neuts (auto) 2.7 Absolute Lymphs (auto) 1.11 Total Counted Not Reportable Sodium 145 Potassium 3.9 Chloride 115 H Carbon Dioxide 19.0 L Anion Gap 11 BUN 8 Creatinine 0.84 Estim Creat Clear Calc 70.01 Est GFR (MDRD) Af Amer 90 Est GFR (MDRD) Non-Af 75 BUN/Creatinine Ratio 9.5 L Glucose 74 Calcium 8.2 L Total Bilirubin 0.60 Direct Bilirubin 0.25 AST 195 H ALT 253 H Alkaline Phosphatase 344 H Total Protein 6.3 L Albumin 2.9 L Globulin 3.4 Albumin/Globulin Ratio 0.9 07/28/18 05:50 WBC RBC Hgb Hct MCV MCH MCHC RDW RDW Differential Plt Count MPV Immature Gran % (Auto) Neut % (Auto) Lymph % (Auto) [place] % (Auto) Eos % (Auto) Baso % (Auto) Absolute Neuts (auto) Absolute Lymphs (auto) Total Counted Sodium Potassium Chloride Carbon Dioxide Anion Gap BUN Creatinine Estim Creat Clear Calc Est GFR (MDRD) Af Amer Est GFR (MDRD) Non-Af BUN/Creatinine Ratio Glucose Calcium Total Bilirubin 0.40 Direct Bilirubin 0.18 AST 79 H ALT 169 H Alkaline Phosphatase 282 H Total Protein 5.9 L Albumin 2.8 L Globulin 3.1 Albumin/Globulin Ratio Medical Necessity - Tobacco Use Smoking Status: Former smoker Tobacco Use: Non-smoker Assessment/Plan All Active Problems Diverticulitis large intestine (Acute) Diverticulitis (Acute) We will continue current management. I would not advance her diet as of yet. Would recheck a white count with liver function test tomorrow. Liver function tests are improving.
[2018-07-28] MEDS: dilTIAZem CD 180 MG Capsule PO (09:04)
[2018-07-28] MEDS: Gabapentin 300 MG Capsule 900 MG PO ×2 (09:04→16:34)
[2018-07-28] MEDS: DULoxetine Hcl 60 MG Capsule PO ×2 (09:05→21:46)
[2018-07-28] MEDS: Topiramate 200 MG Tablet PO ×2 (09:06→21:47)
[2018-07-28] MEDS: ALPRAZolam 0.5 MG Tablet PO ×2 (09:11→22:59)
--- NOTE | 2018-07-28 09:20 | PN_ITS ---
Patient Problems: Active and Suspected Problems Diverticulitis large intestine (Acute) Diverticulitis (Acute) Subjective: Chief complaint: Follow-up after admission for acute diverticulitis of the ascending colon and elevated LFT. Patient seen and examined. No acute events overnight. She still complaining of right-sided abdominal pain but improving. Denied nausea vomiting. Denies fever chills. She is tolerating clear liquid diet. Her vital signs are stable. - Physical Exam General: Alert, Oriented x3, Cooperative, No apparent distress HEENT: Atraumatic, PERRLA, EOMI, Normocephalic Oral: Moist Mucosa, No Gingival or Mucosal Lesions/ Ulcerations Neck: Supple, No JVD, Negative Carotid Bruits, Trachea Midline, Thyroid Normal Size and Texture Lungs: Clear to auscultation, Normal air movement, No rhonchi, No wheeze, No rales Cardiovascular: Regular rate, Regular Rhythm, Normal S1, Normal S2 Abdomen: Bowel Sounds Present, Soft, Non Tender, Non-Distended, No Hepato- splenomegaly Extremities: No clubbing, No cyanosis, No edema Skin: No rashes, No breakdown Lymphatic: No Cervical, Supraclavicular, or Inguinal Adenopathy Neurological: Cranial nerves II-XII grossly intact, Motor Exam 5/5 strength throughout Psych/Mental Status: Normal Affect, Appropriate Vital Signs Temp Pulse Resp BP Pulse Ox 98 F 59 L 16 122/63 H 99 07/28/18 03:00 07/28/18 03:00 07/28/18 03:00 07/28/18 03:00 07/28/18 03:00 Oxygen Delivery Method Room Air Weight: 162 lb 0.636 oz Body Mass Index (BMI) 26.1 Intake and Output for Last 24 Hours 07/26/18 07/27/18 07/28/18 23:59 23:59 23:59 Intake Total 2369 / 2369 3649 / 3649 2364 / 2364 Balance 2369 / 2369 3649 / 3649 2364 / 2364 Laboratory Tests Past 24 Hrs 07/27/18 07/27/18 07/28/18 08:30 08:30 05:50 Sodium 145 Potassium 3.9 Chloride 115 H Carbon Dioxide 19.0 L Anion Gap 11 BUN 8 Creatinine 0.84 Estim Creat Clear Calc 70.01 Est GFR (MDRD) Af Amer 90 Est GFR (MDRD) Non-Af 75 BUN/Creatinine Ratio 9.5 L Glucose 74 Calcium 8.2 L Total Bilirubin 0.60 0.40 Direct Bilirubin 0.25 0.18 AST 195 H 79 H ALT 253 H 169 H Alkaline Phosphatase 344 H 282 H Total Protein 6.3 L 5.9 L Albumin 2.9 L 2.8 L Globulin 3.4 3.1 Albumin/Globulin Ratio 0.9 Medical Necessity - Tobacco Use Smoking Status: Former smoker Tobacco Use: Non-smoker Assessment/Plan All Active Problems Diverticulitis large intestine (Acute) Diverticulitis (Acute) This is a 58 years old female patient admitted because of right-sided abdominal pain and she was found to have acute diverticulitis of the descending colon. #1 acute diverticulitis of the ascending colon: Remained on IV ciprofloxacin and IV Flagyl. Her vital signs are stable, afebrile. She is still symptomatic with abdominal pain but improved. She is tolerating clear liquid diet. General surgery consulted, agreed to medical treatment. Plan to continue same treatment, advance diet as tolerated if okay with surgery. #2 elevated LFT: This could be due to irritation of the biliary tree because of adjacent inflamed ascending colon. Ultrasound liver revealed CBD diameter of 9- 10 mm which is common after cholecystectomy, otherwise no acute pathology. Total bilirubin, liver transaminases and alkaline phosphatase continue to trend down. #3 hypertension: Blood pressure stable, continue Cardizem. #4 migraine headaches: Stable, continue Topamax and Maxalt. #5 anxiety/depression: Stable, continue Xanax and Cymbalta.. #6 DVT prophylaxis: Subcu heparin. This note was generated with Match dictation software. It may contain incorrect words, spelling, and punctuation that were not noted in checking the note before signing. Code Visit Inpatient E&M: 72653 Subs Hosp L2
[2018-07-28 09:21] VITALS: BP 122/84; PULSE 67; RESP 16; TEMP 36.9; O2SAT 98
[2018-07-28] MEDS: Ciprofloxacin 400 MG/200 ML BAG 200 MG IV ×2 (10:11→21:44)
[2018-07-28 11:58] VITALS: BP 133/67; PULSE 66; RESP 16; TEMP 36.9; O2SAT 100
[2018-07-28 14:06] VITALS: BP 112/56; PULSE 68; RESP 16; TEMP 37.1; O2SAT 97
[2018-07-28] MEDS: HYDROcodone Bitartrate/Apap 5/325 Tablet PO (16:36)
[2018-07-28 19:38] VITALS: BP 124/76; PULSE 75; RESP 16; TEMP 37.2; O2SAT 96
[2018-07-29] MEDS: MELATONIN 10 MG TABLET 5 MG PO (00:42)
[2018-07-29 00:55] VITALS: BP 105/74; PULSE 68; RESP 16; TEMP 37.1; O2SAT 98
[2018-07-29] MEDS: Heparin Injection (Vial) 5,000 UNIT/ML VIAL 5000 UNIT SC (05:25)
[2018-07-29] MEDS: 0.9% Normal Saline 1,000 ML 100 ML IV (05:25)
[2018-07-29 05:43] VITALS: BP 111/66; PULSE 66; RESP 16; TEMP 36.9; O2SAT 96
--- NOTE | 2018-07-29 08:33 | DCINST_ITS ---
- Discharge Diagnoses Current Active Problems: Current Active and Chronic Problems Diverticulitis large intestine (Acute) Diverticulitis (Acute) Anxiety and depression (Chronic) Chronic back pain (Chronic) You will use the following diet at home:: Regular Your food should be the consistency of: Regular Discharge Activity: May not drive while taking narcotic pain medications. Allergies/Adverse Reactions: Allergies venom-honey bee [bee venom (honey bee)] Allergy (Verified 07/25/18 11:50) Unknown morphine Adverse Reaction (Verified 07/25/18 11:50) Nausea zolpidem [From Ambien] Adverse Reaction (Verified 07/28/18 22:16) Other sleep walking, hallucinations Medications to take at Discharge ALPRAZolam [Xanax] 0.5 mg PO BID 05/15/14 Diltiazem CD [Cardizem CD] 180 mg PO DAILY 05/15/14 Duloxetine Hcl [Cymbalta] 60 mg PO BID 05/15/14 Gabapentin [Neurontin] 900 mg PO BIDCM 05/15/14 Topiramate [Topamax] 400 mg PO BID 05/15/14 proMETHazine tablet [Phenergan tablet] 25 mg PO Q6H PRN PRN #10 tablet 05/15/14 Colestipol Tablet [Colestid Tablet] 3 tab PO DAILY 07/25/18 Fluticasone 0.05% [Flonase Nasal [place]] 2 spray NASAL DAILY 07/25/18 Sumatriptan Succinate [Imitrex] 100 mg PO X1 PRN 07/25/18 Ciprofloxacin [Cipro] 500 mg PO BID #10 tablet 07/29/18 Metronidazole [Flagyl] 500 mg PO Q8H #15 tablet 07/29/18 Oxycodone [Oxyir] 5 mg PO Q4H PRN PRN 3 Days #14 tablet 07/29/18 The following prescriptions were given: Ciprofloxacin [Cipro] 500 mg PO BID #10 tablet Metronidazole [Flagyl] 500 mg PO Q8H #15 tablet Oxycodone [Oxyir] 5 mg PO Q4H PRN PRN 3 Days #14 tablet PRN Reason: Pain Primary Care Physician: Ibeth Barfield MD [Primary Care Provider] - Please follow up with your Primary Care Physician in: in 5-7 days Test Results: Test results from this visit will be discussed in further detail at your follow- up appointment, if applicable. Please Follow Up With: Jayjay Field MD When: for outpatient Colonoscopy Proposed Discharge Date: 07/29/18
--- NOTE | 2018-07-29 09:00 | PCM.PN.SRG ---
Patient Problems: Active and Suspected Problems Diverticulitis large intestine (Acute) Diverticulitis (Acute) Subjective: Patient evaluated resting comfortably in bed. She notes mild right lower abdominal discomfort. She denies nausea, vomiting. She is tolerating the clear liquids. She is having flatus and bowel movements. - Physical Exam General: Alert, Oriented x3, Cooperative Abdomen: Soft, Non-Distended, Hypoactive Bowel Sounds, Tender - RLQ Vital Signs Temp Pulse Resp BP Pulse Ox 98.4 F 66 16 111/66 96 07/29/18 05:43 07/29/18 05:43 07/29/18 05:43 07/29/18 05:43 07/29/18 05:43 Oxygen Delivery Method Room Air Weight: 162 lb 0.636 oz Body Mass Index (BMI) 26.1 Intake and Output for Last 24 Hours 07/27/18 07/28/18 07/29/18 23:59 23:59 23:59 Intake Total 3649 / 3649 5161 / 5161 643 / 643 Balance 3649 / 3649 5161 / 5161 643 / 643 Medical Necessity - Tobacco Use Smoking Status: Former smoker Tobacco Use: Non-smoker Assessment/Plan All Active Problems Diverticulitis large intestine (Acute) Diverticulitis (Acute) I am following this patient in conjunction with Dr. Field Impression: Acute diverticulitis Increase to full liquids Ready for discharge oxana today Follow-up in [address] Field Patient was discussed with Dr. Field Code Visit Inpatient E&M: 50604 Subs Hosp L1
[2018-07-29 09:11] VITALS: BP 149/67; PULSE 72; RESP 14; TEMP 36.8; O2SAT 96
--- NOTE | 2018-07-29 09:12 | PCM.DC.SUM ---
Discharge Date and Diagnosis - Problem List Patient Problems: Active and Suspected Problems Diverticulitis large intestine (Acute) Diverticulitis (Acute) Date of Admission: 07/25/18 Date of Discharge: 07/29/18 - Primary Discharge Diagnosis Active and Suspected Problems Diverticulitis large intestine (Acute) Diverticulitis (Acute) - Secondary Discharge Diagnosis Chronic Problems Hypertension (Chronic) Migraine headache (Chronic) Anxiety and depression (Chronic) Chronic back pain (Chronic) Hospital Course and Treatment Imaging Results: Clinical Impression(s) from Imaging Studies Abdomen/Pelvis CT 07/25/18 12:08 IMPRESSION: Findings in keeping with diverticulitis affecting the descending colon as described. Normal appearance of the retrocecal appendix. Electronically Signed: Will Arango MD at 13:15 EST Tel [phone], Service support , ADDENDUM: 07/26/18 204 Liver Ultrasound 07/26/18 14:15 IMPRESSION: The liver is increased in echogenicity which can be seen with fatty infiltration. No masses are seen in the liver. The common bile duct measures 9-10 mm in diameter which is not unexpected after cholecystectomy. Electronically Signed: Isabell Harden MD at 20:29 EST Tel Direct: [phone], Service support , ADDENDUM: 07/26/18 2043 Summary of Care Provided: The patient is a 58 year old F admitted with right-sided abdominal pain. Imaging studies on admission demonstrated acute diverticulitis involving the descending colon 1. Acute diverticulitis involving the descending colon was treated with ciprofloxacin as well as Flagyl with significant improvement. Patient was also seen in consultation by general surgery Dr. Field plan is for patient undergo colonoscopy as outpatient 2. Elevated liver function test ultrasound of the liver obtained demonstrated features consistent with fatty liver patient liver function tests did improve during her stay in the hospital patient was advised to follow-up with her primary care physician Dr. Barfield for repeat liver function test as outpatient 3. Hypertension-blood pressure controlled, home medications continued with dose adjustment as needed 4. Chronic migraine headaches stable on Topamax 5. Depression with anxiety 6. DVT prophylaxis [place] heparin Patient Problems: Active and Suspected Problems Diverticulitis large intestine (Acute) Diverticulitis (Acute) - Physical Exam General: Alert Neck: Supple Lungs: Clear to auscultation Cardiovascular: Regular rate Neurological: Neuro grossly intact Psych/Mental Status: Normal Affect Vital Signs Temp Pulse Resp BP Pulse Ox 98.4 F 66 16 111/66 96 07/29/18 05:43 07/29/18 05:43 07/29/18 05:43 07/29/18 05:43 07/29/18 05:43 Oxygen Delivery Method Room Air Weight: 73.5 kg Body Mass Index (BMI) 26.1 Intake and Output for Last 24 Hours 07/27/18 07/28/18 07/29/18 23:59 23:59 23:59 Intake Total 3644 / 3649 5161 / 5161 643 / 643 Balance 3649 / 3649 5161 / 5161 643 / 643 Discharge Diet: No Restrictions Discharge Activity: May not drive while taking narcotic pain medications. Home Medications: Medications to take at Discharge ALPRAZolam [Xanax] 0.5 mg PO BID 05/15/14 Diltiazem CD [Cardizem CD] 180 mg PO DAILY 05/15/14 Duloxetine Hcl [Cymbalta] 60 mg PO BID 05/15/14 Gabapentin [Neurontin] 900 mg PO BIDCM 05/15/14 Topiramate [Topamax] 400 mg PO BID 05/15/14 proMETHazine tablet [Phenergan tablet] 25 mg PO Q6H PRN PRN #10 tablet 05/15/14 Colestipol Tablet [Colestid Tablet] 3 tab PO DAILY 07/25/18 Fluticasone 0.05% [Flonase Nasal [place]] 2 spray NASAL DAILY 07/25/18 Sumatriptan Succinate [Imitrex] 100 mg PO X1 PRN 07/25/18 Ciprofloxacin [Cipro] 500 mg PO BID #10 tablet 07/29/18 Metronidazole [Flagyl] 500 mg PO Q8H #15 tablet 07/29/18 Oxycodone [Oxyir] 5 mg PO Q4H PRN PRN 3 Days #14 tablet 07/29/18 Following Prescrptions Were Given to Patient: Ciprofloxacin [Cipro] 500 mg PO BID #10 tablet Metronidazole [Flagyl] 500 mg PO Q8H #15 tablet Oxycodone [Oxyir] 5 mg PO Q4H PRN PRN 3 Days #14 tablet PRN Reason: Pain Primary Care Physician: Ibeth Barfield MD [Primary Care Provider] - Please follow up with your Primary Care Physician in: in 5-7 days Please Follow Up With: Jayjay Field MD When: for outpatient Colonoscopy Minutes spent on discharge:: 35 Patient Condition:: Stable Medical Necessity - Tobacco Use Smoking Status: Former smoker Tobacco Use: Non-smoker Meaningful Use Info Meaningful Use Diagnoses (Choose all that apply): None applicable Code Visit Inpatient E&M: 47261 Disch Hosp
--- NOTE | 2018-07-29 09:15 | DS.PCM_ITS ---
Discharge Date and Diagnosis - Problem List Patient Problems: Active and Suspected Problems Diverticulitis large intestine (Acute) Diverticulitis (Acute) Date of Admission: 07/25/18 Date of Discharge: 07/29/18 - Primary Discharge Diagnosis Active and Suspected Problems Diverticulitis large intestine (Acute) Diverticulitis (Acute) - Secondary Discharge Diagnosis Chronic Problems Hypertension (Chronic) Migraine headache (Chronic) Anxiety and depression (Chronic) Chronic back pain (Chronic) Hospital Course and Treatment Imaging Results: Clinical Impression(s) from Imaging Studies Abdomen/Pelvis CT 07/25/18 12:08 IMPRESSION: Findings in keeping with diverticulitis affecting the descending colon as described. Normal appearance of the retrocecal appendix. Electronically Signed: Will Arango MD at 13:15 EST Tel [phone], Service support , ADDENDUM: 07/26/18 204 Liver Ultrasound 07/26/18 14:15 IMPRESSION: The liver is increased in echogenicity which can be seen with fatty infiltration. No masses are seen in the liver. The common bile duct measures 9-10 mm in diameter which is not unexpected after cholecystectomy. Electronically Signed: Isabell Harden MD at 20:29 EST Tel Direct: [phone], Service support , ADDENDUM: 07/26/18 2043 Summary of Care Provided: The patient is a 58 year old F admitted with right-sided abdominal pain. Imagi ng studies on admission demonstrated acute diverticulitis involving the descending colon 1. Acute diverticulitis involving the descending colon was treated with ciprofloxacin as well as Flagyl with significant improvement. Patient was also seen in consultation by general surgery Dr. Field plan is for patient undergo colonoscopy as outpatient 2. Elevated liver function test ultrasound of the liver obtained demonstrated features consistent with fatty liver patient liver function tests did improve during her stay in the hospital patient was advised to follow-up with her primary care physician Dr. Barfield for repeat liver function test as outpatient 3. Hypertension-blood pressure controlled, home medications continued with dose adjustment as needed 4. Chronic migraine headaches stable on Topamax 5. Depression with anxiety 6. DVT prophylaxis SC heparin Patient Problems: Active and Suspected Problems Diverticulitis large intestine (Acute) Diverticulitis (Acute) - Physical Exam General: Alert Neck: Supple Lungs: Clear to auscultation Cardiovascular: Regular rate Neurological: Neuro grossly intact Psych/Mental Status: Normal Affect Vital Signs Temp Pulse Resp BP Pulse Ox 98.4 F 66 16 111/66 96 07/29/18 05:43 07/29/18 05:43 07/29/18 05:43 07/29/18 05:43 07/29/18 05:43 Oxygen Delivery Method Room Air Weight: 73.5 kg Body Mass Index (BMI) 26.1 Intake and Output for Last 24 Hours 07/27/18 07/28/18 07/29/18 23:59 23:59 23:59 Intake Total 3649 / 3649 5161 / 5161 643 / 643 Balance 3649 / 3649 5161 / 5161 643 / 643 Discharge Diet: No Restrictions Discharge Activity: May not drive while taking narcotic pain medications. Home Medications: Medications to take at Discharge ALPRAZolam [Xanax] 0.5 mg PO BID 05/15/14 Diltiazem CD [Cardizem CD] 180 mg PO DAILY 05/15/14 Duloxetine Hcl [Cymbalta] 60 mg PO BID 05/15/14 Gabapentin [Neurontin] 900 mg PO BIDCM 05/15/14 Topiramate [Topamax] 400 mg PO BID 05/15/14 proMETHazine tablet [Phenergan tablet] 25 mg PO Q6H PRN PRN #10 tablet 05/15/14 Colestipol Tablet [Colestid Tablet] 3 tab PO DAILY 07/25/18 Fluticasone 0.05% [Flonase Nasal Dahlgren] 2 spray NASAL DAILY 07/25/18 Sumatriptan Succinate [Imitrex] 100 mg PO X1 PRN 07/25/18 Ciprofloxacin [Cipro] 500 mg PO BID #10 tablet 07/29/18 Metronidazole [Flagyl] 500 mg PO Q8H #15 tablet 07/29/18 Oxycodone [Oxyir] 5 mg PO Q4H PRN PRN 3 Days #14 tablet 07/29/18 Following Prescrptions Were Given to Patient: Ciprofloxacin [Cipro] 500 mg PO BID #10 tablet Metronidazole [Flagyl] 500 mg PO Q8H #15 tablet Oxycodone [Oxyir] 5 mg PO Q4H PRN PRN 3 Days #14 tablet PRN Reason: Pain Primary Care Physician: Ibeth Barfield MD [Primary Care Provider] - Please follow up with your Primary Care Physician in: in 5-7 days Please Follow Up With: Jayjay Field MD When: for outpatient Colonoscopy Minutes spent on discharge:: 35 Patient Condition:: Stable Medical Necessity - Tobacco Use Smoking Status: Former smoker Tobacco Use: Non-smoker Meaningful Use Info Meaningful Use Diagnoses (Choose all that apply): None applicable Code Visit Inpatient E&M: 79139 Disch Hosp
[2018-07-29 09:18] VITALS: PULSE 72; RESP 14; O2SAT 96
[2018-07-29] MEDS: Multivitamins,Ther W-Minerals Tablet 1 TABLET PO (10:23)
[2018-07-29] MEDS: Gabapentin 300 MG Capsule 900 MG PO (10:23)
[2018-07-29] MEDS: Topiramate 200 MG Tablet PO (10:24)
[2018-07-29] MEDS: DULoxetine Hcl 60 MG Capsule PO (10:24)
[2018-07-29] MEDS: dilTIAZem CD 180 MG Capsule PO (10:24)
== END 2018-07-29 10:58 | disposition home or self-care (01) | DRG 392 ==
LOC: ED 12:28 → MS3 15:42
PROVIDERS: Hospitalist; Admitting Provider Internal Medicine; Emergency Provider Emergency Medicine; Family Provider Internal Medicine; PCP Internal Medicine; Visit Provider Internal Medicine
DX: K57.32 Diverticulitis of large intestine without perforation or abscess without bleeding (principal); I10 Essential (primary) hypertension; E86.0 Dehydration; G43.909 Migraine, unspecified, not intractable, without status migrainosus; G89.29 Other chronic pain; F41.8 Other specified anxiety disorders; M54.9 Dorsalgia, unspecified; K76.0 Fatty (change of) liver, not elsewhere classified; Z87.891 Personal history of nicotine dependence; Z90.49 Acquired absence of other specified parts of digestive tract
CPT/HCPCS: 36415; 74176; 76705; 80048; 80053; 80076; 81001; 82248; 83690; 85025; 97162; 97165; 99283; J7030; J7050; A4216; J0744; J2405

== ENCOUNTER 2018-08-28 07:10 | Day surgery (SDC) | payer OTHER, SELFPAY ==
[2018-07-25 16:15] VITALS: BMI 26.1
[2018-08-28 07:39] VITALS: BP 127/80; PULSE 61; RESP 16; TEMP 37; O2SAT 99; BMI 25.2
--- NOTE | 2018-08-28 08:30 | COLBX_PTH ---
PATIENT: SAULO AVILA I LOC: EN U#:[id number] AGE/SX: 58/F ROOM: RE08/28/[address]: Dr. Jayjay Field MD : 1960 BED: DIS: 08/28/2018 SPEC #: [id number] RECD: 08/28/18 10:15 STATUS: CABRERA STEVE #: [id number] FLOYD: 08/28/18 08:[address]: Jayjay Field DEPT: SURGICAL PATHOLOGY RECD BY: Shayne Awad ENTERED: 08/28/18 12:13 SP TYPE: COLON BX OTHR DR: MD Ibeth Tong MD Tissues: COLON BIOPSY Procedures: Surgery Specimen Level IV HEADER OPERATION: Colonoscopy PRE-OP DIAGNOSIS: Diverticulitis TISSUE SUBMITTED: Random colon biopsies MICROSCOPIC DIAGNOSIS Colon, random biopsy: Fragments of colonic mucosa, no pathologic diagnosis. SJ:areli 08/29/18 MICROSCOPIC DESCRIPTION Slides are reviewed. GROSS DESCRIPTION Received in fixative is one container labeled with the patient's name and designated random colon biopsy. The specimen consists of multiple irregular fragments of light osborne soft tissue that in aggregate measure 2 x 0.5 x 0.1 cm. The specimen is totally submitted in one cassette. / AM:areli 08/28/18 TC:4 CPT: 79573
[2018-08-28 08:54] VITALS: BP 114/62; BP 127/80; PULSE 98; RESP 16; TEMP 36.3; O2SAT 98
[2018-08-28 09:00] VITALS: BP 127/80; BP 95/78; PULSE 98; RESP 16; O2SAT 92
--- NOTE | 2018-08-28 09:01 | OP.ENDO_ITS ---
Patient Name: Michael Geiger Procedure Date: 08/28/2018 8:27 AM Date of : 1960 Age: 58 Procedure: Colonoscopy Indications: Abnormal CT of the GI tract, Diverticulitis Providers: Jayjay Field MD Referring MD: Ibeth Barfield Medicines: See the Anesthesia note for documentation of the administered medications Patient Profile: This is a 58 year old female. Refer to note in patient chart for documentation of history and physical. Last Colonoscopy: 3 years ago. Complications: No immediate complications. Procedure: Pre-Anesthesia Assessment: - Prior to the procedure, a History and Physical was performed, and patient medications and allergies were reviewed. The patient's tolerance of previous anesthesia was also reviewed. The risks and benefits of the procedure and the sedation options and risks were discussed with the patient. All questions were answered, and informed consent was obtained. Prior Anticoagulants: The patient has taken no previous anticoagulant or antiplatelet agents. ASA Grade Assessment: II - A patient with mild systemic disease. After reviewing the risks and benefits, the patient was deemed in satisfactory condition to undergo the procedure. After I obtained informed consent, the scope was passed under direct vision. Throughout the procedure, the patient's blood pressure, pulse, and oxygen saturations were monitored continuously. The Colonoscope was introduced through the anus and advanced to the cecum, identified by appendiceal orifice and ileocecal valve. The patient tolerated the procedure well. The patient tolerated the procedure well. The quality of the bowel preparation was good. Scope In: 8:35:17 AM Scope Withdrawal Time 0 hours 7 minutes 15 seconds Scope Out: 8:50:23 AM Total Procedure Duration Time 0 hours 15 minutes 6 seconds Findings: A few small-mouthed diverticula were found in the sigmoid colon. The colon (entire examined portion) appeared normal. Biopsies for histology were taken with a cold forceps from the entire colon for evaluation of microscopic colitis. The exam was otherwise without abnormality. Impression: - Diverticulosis in the sigmoid colon. - The entire examined colon is normal. Biopsied. - The examination was otherwise normal. Recommendation: - Discharge patient to home. - Resume previous diet. - Continue present medications. - Await pathology results. - Repeat colonoscopy in 10 years for screening purposes. - Return to my office in 1 week. Procedure Code(s): --- Professional --- 81462, Colonoscopy, flexible; with biopsy, single or multiple Diagnosis Code(s): --- Professional --- K57.32, Diverticulitis of large intestine without perforation or abscess without bleeding K57.30, Diverticulosis of large intestine without perforation or abscess without bleeding R93.3, Abnormal findings on diagnostic imaging of other parts of digestive tract CPT copyright 2017 [employer]. All rights reserved. The codes documented in this report are preliminary and upon slip cover seamstress review may be revised to meet current compliance requirements. MD Jayjay Teixeira MD 08/28/2018 9:01:13 AM This report has been signed electronically. Number of Addenda: 0 Note Initiated On: 08/28/2018 8:27 AM
--- NOTE | 2018-08-28 09:04 | HP.PCM_ITS ---
Problem List (1) Diverticulitis large intestine Status: Acute Qualifiers: Diverticulitis bleeding: without bleeding Diverticulitis complication: without perforation or abscess Qualified Code(s): K57.32 - Diverticulitis of large intestine without perforation or abscess without bleeding History of Present Illness Date of Admission: 08/28/18 The patient is a 58 year old F past medical history of anxiety/depression, chronic back pain/pain syndrome who comes in with complaints of right-sided abdominal pain started more than a week ago. She was unable to lie on the right side to sleep. Denied any associated fever or chills or nausea or vomiting. She has a history of laparoscopic cholecystectomy and has since had chronic diarrhea. Pain is severe and unbearable. She has history of colon colonoscopy done 3 years ago in the [facility] and a polyp was removed and she is due to have another colonoscopy this July. CAT scan was completed which showed diverticulitis of the ascending colon. The appendix was retrocecal and appears to be spared and there is air with in it. There is some significant amount of streaky fat in the right upper quadrant. There was no signs of any free air. She improved with conservative treatment and subsequently presents today for her colonoscopy. Past Medical History Past Medical History (Chronic Problems): Chronic Problems Hypertension (Chronic) Migraine headache (Chronic) Anxiety and depression (Chronic) Chronic back pain (Chronic) Allergies venom-honey bee [bee venom (honey bee)] Allergy (Verified 08/27/18 09:49) Unknown morphine Adverse Reaction (Verified 08/27/18 09:49) Nausea zolpidem [From Ambien] Adverse Reaction (Verified 08/27/18 09:49) Other sleep walking, hallucinations Home Medications: Ambulatory Orders Medication Instructions Recorded ALPRAZolam [Xanax] 0.5 mg PO BID 05/15/14 Diltiazem CD [Cardizem CD] 180 mg PO DAILY 05/15/14 Duloxetine Hcl [Cymbalta] 60 mg PO BID 05/15/14 Gabapentin [Neurontin] 900 mg PO BIDCM 05/15/14 Topiramate [Topamax] 400 mg PO BID 05/15/14 Colestipol Tablet [Colestid Tablet] 3 tab PO DAILY 07/25/18 Sumatriptan Succinate [Imitrex] 100 mg PO X1 PRN 07/25/18 Cholecalciferol (Vitamin D3) 2,500 unit PO DAILY 08/27/18 [Vitamin D3] Multivitamins,Ther W-Minerals 1 tablet PO DAILY 08/27/18 [Multivitamin With Minerals] Surgical History: cholecystectomy, - - colonoscopy Psychiatric History: Anxiety, Depression 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 Smoking Status: Former smoker - *Family History Maternal History Items: - - Brain aneurysm Paternal History Items: Heart Disease Review of Systems Cardiovascular: Denies: Chest Pain, Chest Pressure, Chest Tightness, Palpitations Respiratory: Denies: Cough, Hemoptysis, Shortness of breath at rest, Shortness of breath upon exertion, Wheezing Gastrointestinal: Denies: Abdominal Pain, Constipation, Diarrhea, Hematemesis, Nausea, Melena, Vomiting VTE Information - Inpt Only VTE Present on Admission: No VTE Mechan Device Prophylaxis: None VTE Pharm Prophylaxis ordered?: No Reason prophylaxis not ordered:: Treatment Not Indicated - Physical Exam General: Alert, Oriented x3 Lungs: Clear to auscultation Cardiovascular: Regular rate, Regular Rhythm, No murmurs Vital Signs Temp Pulse Resp BP Pulse Ox 97.4 F L 98 16 95/78 92 08/28/18 08:54 08/28/18 09:00 08/28/18 09:00 08/28/18 09:00 08/28/18 09:00 Oxygen Delivery Method Room Air Weight: 156 lb 11.979 oz Body Mass Index (BMI) 25.2 Assessment/Plan All Active Problems Diverticulitis large intestine (Acute) Diverticulitis (Acute) My plan is to perform a colonoscopy on her.
[2018-08-28 09:05] VITALS: BP 127/80; BP 95/78; PULSE 85; RESP 16
[2018-08-28 09:10] VITALS: BP 127/80; BP 95/78; PULSE 78; RESP 16; TEMP 36.7; O2SAT 100
[2018-08-28 09:25] VITALS: BP 127/80; BP 145/89; PULSE 88; RESP 16; TEMP 36.7; O2SAT 100
--- OUTSIDE RECORDS SUMMARY | 2018-11-29 08:01 | XMS RPT_ITS ---
:1960 Author Organization OHIP Support Name Relationship Address Phone BARCUS, REYNALDO Unavailable [address] + [place] [address] D Unavailable Unavailable Unavailable STONEROCK DAMASO Unavailable [address] + [place] [address] BARCUS, REYNALDO Unavailable [address] + [place] [address] D Unavailable Unavailable Unavailable STONEROCK, DAMASO Unavailable [address] + [place] [address] BARCUS, REYNALDO Unavailable [address] + [place] [address] D Unavailable Unavailable Unavailable STONEROCK, DAMASO Unavailable [address] + [place] [address] BARCUS, REYNALDO Unavailable [address] + [place] [address] D Unavailable Unavailable Unavailable STONEROCK, DAMASO Unavailable [address] + [place] [address] BARCUS, REYNALDO Unavailable [address] + [place] [address] D Unavailable Unavailable Unavailable STONEROCK, DAMASO Unavailable [address] + [place] [address] BARCUS, REYNALDO Unavailable [address] + [facility] [address] D Unavailable Unavailable Unavailable STONEROCK, DAMASO Unavailable [address] + [place] [address] BARCUS, REYNALDO Unavailable [address] + [place] [address] D Unavailable Unavailable Unavailable STONEROCK, DAMASO Unavailable [address] + [place] [address] BARCUS, REYNALDO Unavailable [address] + [place] [address] D Unavailable Unavailable Unavailable STONEROCK, DAMASO Unavailable [address] [facility] [address] + [place] [address] BARCHODA SCOTTTTE Unavailable [address] + [place] [address] D Unavailable Unavailable Unavailable STONEROCK, DAMASO Unavailable [address] [facility] [address] + [place] [address] BARCNORRIS SCOTTREYNALDO Unavailable [address] + [place] [address] D Unavailable Unavailable Unavailable STONEROCK, DAMASO Unavailable [address] [facility] [address] + [place] [address] Care Team Providers Name Role Phone EARL AKIN D Attending Unavailable THORPE, CASSIDY (BONSAI TENDER) Attending Unavailable THORPE, CASSIDY (BONSAI TENDER) Referring Unavailable THORPE, CASSIDY (BONSAI TENDER) Referring Unavailable THORPE, CASSIDY (BONSAI TENDER) Referring Unavailable TALAMPAS, AKIN D Referring Unavailable TALAMPAS, AKIN D Attending Unavailable TALAMPAS, AKIN D Attending Unavailable TALAMPAS, AKIN D Referring Unavailable TALAMPAS, AKIN D Referring Unavailable BeverlyJayjay Attending Unavailable Beverly Jayjay Referring Unavailable Talampas, Akin Primary Care Unavailable Rashida Jayjay Consulting Unavailable Talampas, Akin Primary Care Unavailable Paintsil, Alva Admitting Unavailable BeverlyJayjay Consulting Unavailable Dominic Cox Attending Unavailable Paintsil, Alva Attending Unavailable Talampas, Akin Primary Care Unavailable Paintsil, Alva Admitting Unavailable Ashelfah, Ghasem Attending Unavailable Talampas, Akin Primary Care Unavailable Ashelfah, Ghasem Consulting Unavailable Paintsil, Alva Admitting Unavailable Ashelfah, Ghasem Attending Unavailable Talampas, Akin Primary Care Unavailable Beverly Jayjay Consulting Unavailable Ashelfah, Ghasem Consulting Unavailable Paintsil, Alva Admitting Unavailable Rashida Jayjay Attending Unavailable Talampas, Akin Primary Care Unavailable Rashida, Jayjay Consulting Unavailable Ashelfah, Ghasem Consulting Unavailable Paintsil, Alva Admitting Unavailable Ashelfah, Ghasem Attending Unavailable Talampas, Akin Primary Care Unavailable Beverly Jayjay Consulting Unavailable Ashelfah, Ghasem Consulting Unavailable Paintsil, Alva Admitting Unavailable Mina PA-C, Misa Attending Unavailable Talampas, Akin Primary Care Unavailable Rashida, Jayjay Consulting Unavailable Kittoe, Dominic Consulting Unavailable Paintsil, Alva Admitting Unavailable Kittoe, Dominic Attending Unavailable Talampas, Akin Primary Care Unavailable Rashida, Jayjay Consulting Unavailable Kittoe, Dominic Consulting Unavailable Rashida, Jayjay Attending Unavailable Rashida, Jayjay Referring Unavailable Talampas, Akin Primary Care Unavailable PROBLEMS PROBLEMS DATE TYPE CONDITION / CODE ATTENDING STATUS SOURCE 08/10/2018 Active Other retirement Active [place] (current) drug [facility] therapy / [place] Z79.899(ICD-10) Repository 08/10/2018 Active Abnormal results of [facility] liver function [facility] studies / [place] R94.5(ICD-10) Repository 08/10/2018 Active Diverticulitis of [facility] intestine, part [facility] unspecified, without [place] perforation or Repository abscess without bleeding / K57.92(ICD-10) 07/29/2018 Unknown K57.32 - Dominic Cox Active [place] Diverticulitis of [facility] without perforation Repository or abscess without bleeding / K57.32(ICD-10) 05/01/2018 Active Encounter for [facility] screening mammogram [facility] for malignant [place] neoplasm of breast / Repository Z12.31(ICD-10) 03/27/2018 Active Diarrhea, [facility] unspecified / [facility] R19.7(ICD-10) [place] Repository 03/08/2018 Active Change in bowel [facility] habit / [facility] R19.4(ICD-10) [place] Repository PROCEDURES PROCEDURES No Procedure Records FoundRESULTS RESULTS OBSOLETE Observed: 09/30/2018 Status: COMPLETED Source: [place] 12:00 AM [facility] REPOSITORY Refill (INTMWS) SAULO GEIGER I ([id number]) 1960 F NFR Date Time Provider Department 09/30/18 AKIN BARFIELD During your visit today, we recorded the following information about you: Guillermo Magana LPN 09/30/2018 1:39 PM Signed Last appt 08/10/18 Future appt 12/06/18 Patient's request for medication is as follows: Pending Prescriptions Disp Refills GABAPENTIN 300 MG CAPSULE 540 capsule 1 Sig: Take 3 pills in the morning and 3 pills at bedtime. MACY: No Please approve the above prescription(s) to electronically send to pharmacy. Guillermo Tyler APRN.BIOLOGY SPECIALIST 10/03/2018 7:31 AM Signed PDMP website checked and validated. All prescriptions have been APPROPRIATELY filled. No suspicious activity was identified. 10/03/2018 by Boogie Tyler APRN.BIOLOGY SPECIALIST Allergies As of Date: 09/30/2018 Noted Allergy Reaction bee stings [Other] 05/16/2005 MORPHINE 04/03/2017 11 - Vomiting RELAFEN (NABUMETONE) 11/26/2008 6 - Diarrhea Comments: 2004 tried med Date Reviewed: 08/10/2018 Reviewed by: Neyda Templeton LPN - Fully Assessed Reason for Visit: Refill Request [94] Order(s):gabapentin (NEURONTIN) 300 mg capsuleTake 3 pills in the morning and 3 pills at bedtime.Disp: 540 capsuleRfl: 1 Prescriptions as of 09/30/2018 Sig: GABAPENTIN 300 MG CAPSULE Take 3 pills in the morning a* VITAMIN D3 ORAL Take 1 capsule by mouth once * EPINEPHRINE 0.3 MG/0.3 ML INJ* Inject 0.3 ml subcutaneously * COLESTIPOL 1 GRAM TABLET Take 3 tablets by mouth once * DILTIAZEM SR 180 MG 24 HR CAP Take 1 capsule by mouth once * SUMATRIPTAN 100 MG TABLET Take at onset of migraine. Ma* TOPIRAMATE 100 MG TABLET TAKE 2 TABLETS TWICE A DAY IN* PROMETHAZINE 25 MG TABLET Take 0.5-1 tablets by mouth e* BUDESONIDE DR - ER 3 MG CAPSU* Take 3 capsules by mouth once* Patient not taking: Reported on 08/10/2018 DULOXETINE 60 MG CAPSULE,RAUL* Take 1 capsule by mouth twice* ALPRAZOLAM 0.5 MG TABLET Take 1 tablet by mouth twice * KPTKTPDY-[id number]-LVRBC ACID 0.4 M* Take 1 tablet by mouth once d* Problem List As Of Date 09/30/2018 Noted Resolved CONCUSSION W/O COMA [S06.0X0A] SPRAIN OF NECK [S13.9XXA] SPRAIN THORACIC REGION [S23.9XXA] Migraine variant [G43.809] More... SKIN SENSATION DISTURB [R20.9] ESOPHAGEAL REFLUX [K21.9] Displacement of intervertebral disc of thoracol*INVALID FOR* Bee sting allergy [T63.91XA] INVALID FOR* SPRAIN LUMBOSACRAL [S33.5XXA] INVALID FOR* Painful respiration [R07.1] INVALID FOR*08/21/2013 Bruxism (teeth grinding) [F45.8] INVALID FOR* Lumbago [M54.5] INVALID FOR* Cervicalgia [M54.2] INVALID FOR* More... DDD (degenerative disc disease), lumbar [M51.36]INVALID FOR* More... Lumbar spondylosis [M47.816] INVALID FOR* Chronic back pain [M54.9, G89.29] INVALID FOR* Hypercholesteremia [E78.00] More... Bright red rectal bleeding [K62.5] INVALID FOR*07/29/2015 Nausea [R11.0] INVALID FOR*07/29/2015 Non-cardiac chest pain [R07.89] INVALID FOR* More... Displacement of cervical intervertebral disc wi*INVALID FOR* Prescriptions ordered this encounter Disp Refills Start End GABAPENTIN 300 MG CAPSULE 540 * 1 10/03/2018 03/30/2019 Sig: Take 3 pills in the morning and 3 pills at bedtime. Medications Discontinued During This Encounter gabapentin (NEURONTIN) 300 mg capsule 540 * 1 04/05/2018 10/03/2018 Sig: Take 3 pills in the morning and 3 pills at bedtime. Disc: Reason for discontinue is not on file. Encounter Status:Closed by BOOGIE LOPEZ on 10/03/18 HISTORY AND PHYSICAL Observed: 08/28/2018 Status: F Source: [place] EXAM 9:04 AM [facility] REPOSITORY [facility] Medical Records Department [address] [place] [address] History and Physical 08/28/18 0903 MR#: [id number] Acct: [id number] Name: SAULO GEIGER I Rep #: [id number] : 1960 58 From: Jayjay Field MD PCP: Akin Barfield MD [place] [facility] [place]: [place] [address]- Problem List (1) Diverticulitis large intestine Status: Acute Qualifiers: Diverticulitis bleeding: without bleeding Diverticulitis complication: without perforation or abscess Qualified Code(s): K57.32 - Diverticulitis of large intestine without perforation or abscess without bleeding History of Present Illness Date of Admission: 08/28/18 The patient is a 58 year old F past medical history of anxiety/depression, chronic back pain/pain syndrome who comes in with complaints of right-sided abdominal pain started more than a week ago. She was unable to lie on the right side to sleep. Denied any associated fever or chills or nausea or vomiting. She has a history of laparoscopic cholecystectomy and has since had chronic diarrhea. Pain is severe and unbearable. She has history of colon colonoscopy done 3 years ago in the [facility] system and a polyp was removed and she is due to have another colonoscopy this July. CAT scan was completed which showed diverticulitis of the ascending colon. The appendix was retrocecal and appears to be spared and there is air with in it. There is some significant amount of streaky fat in the right upper quadrant. There was no signs of any free air. She improved with conservative treatment and subsequently presents today for her colonoscopy. Past Medical History Past Medical History (Chronic Problems): Chronic Problems Hypertension (Chronic) Migraine headache (Chronic) Anxiety and depression (Chronic) Chronic back pain (Chronic) Allergies venom-honey bee [bee venom (honey bee)] Allergy (Verified 08/27/18 09:49) Unknown morphine Adverse Reaction (Verified 08/27/18 09:49) Nausea zolpidem [From Ambien] Adverse Reaction (Verified 08/27/18 09:49) Other sleep walking, hallucinations Home Medications: Ambulatory Orders Medication Instructions Recorded ALPRAZolam [Xanax] 0.5 mg PO BID 05/15/14 Diltiazem CD [Cardizem CD] 180 mg PO DAILY 05/15/14 Duloxetine Hcl [Cymbalta] 60 mg PO BID 05/15/14 Surgical History: cholecystectomy, - - colonoscopy Psychiatric History: Anxiety, Depression 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: No pertinent 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 history Smoking Status: Former smoker - *Family History Maternal History Items: - - Brain aneurysm Paternal History Items: Heart Disease Review of Systems Cardiovascular: Denies: Chest Pain, Chest Pressure, Chest Tightness, Palpitations Respiratory: Denies: Cough, Hemoptysis, Shortness of breath at rest, Shortness of breath upon exertion, Wheezing Gastrointestinal: Denies: Abdominal Pain, Constipation, Diarrhea, Hematemesis, Nausea, Melena, Vomiting VTE Information - Inpt Only VTE Present on Admission: No VTE Mechan Device Prophylaxis: None VTE Pharm Prophylaxis ordered?: No Reason prophylaxis not ordered:: Treatment Not Indicated - Physical Exam General: Alert, Oriented x3 Lungs: Clear to auscultation Cardiovascular: Regular rate, Regular Rhythm, No murmurs Vital Signs Temp Pulse Resp BP Pulse Ox 97.4 F L 98 16 95/78 92 08/28/18 08:54 08/28/18 09:00 08/28/18 09:00 08/28/18 09:00 08/28/18 09:00 Oxygen Delivery Method Room Air Weight: 156 lb 11.979 oz Body Mass Index (BMI) 25.2 Assessment/Plan All Active Problems Diverticulitis large intestine (Acute) Diverticulitis (Acute) My plan is to perform a colonoscopy on her. 08/28/18903 <Electronically signed by Jayjay Field MD> Date Jayjay Field MD Cosigner Signature: Date (if applicable) CC: Jayjay Field MD; Akin Barfield MD Signed OPERATIVE REPORT - Observed: 08/28/2018 Status: F Source: [place] END[facility]COPY 9:01 AM [facility] REPOSITORY [facility] Medical Records Department [address] [place] [address] Operative Report - Endoscopy MR#: [id number] Acct: [id number] Name: SAULO GEIGER I Rep #: [id number] : 1960 58 From: Jayjay Field MD PCP: Akin Barfield MD [place] [facility] Patient Name: Saulo Geiger Procedure Date: 08/28/2018 8:27 AM Date of : 1960 Age: 58 Procedure: Colonoscopy Indications: Abnormal CT of the GI tract, Diverticulitis Providers: Jayjay Field MD Referring MD: Akin Barfield Medicines: See the Anesthesia note for documentation of the administered medications Patient Profile: This is a 58 year old female. Refer to note in patient chart for documentation of history and physical. Last Colonoscopy: 3 years ago. Complications: No immediate complications. Procedure: Pre-Anesthesia Assessment: - Prior to the procedure, a History and Physical was performed, and patient medications and allergies were reviewed. The patient's tolerance of previous anesthesia was also reviewed. The risks and benefits of the procedure and the sedation options and risks were discussed with the patient. All questions were answered, and informed consent was obtained. Prior Anticoagulants: The patient has taken no previous anticoagulant or antiplatelet agents. ASA Grade Assessment: II - A patient with mild systemic disease. After reviewing the risks and benefits, the patient was deemed in satisfactory condition to undergo the procedure. After I obtained informed consent, the scope was passed under direct vision. Throughout the procedure, the patient's blood pressure, pulse, and oxygen saturations were monitored continuously. The Colonoscope was introduced through the anus and advanced to the cecum, identified by appendiceal orifice and ileocecal valve. The patient tolerated the procedure well. The patient tolerated the procedure well. The quality of the bowel preparation was good. Scope In: 8:35:17 AM Scope Withdrawal Time 0 hours 7 minutes 15 seconds Scope Out: 8:50:23 AM Total Procedure Duration Time 0 hours 15 minutes 6 seconds Findings: A few small-mouthed diverticula were found in the sigmoid colon. The colon (entire examined portion) appeared normal. Biopsies for histology were taken with a cold forceps from the entire colon for evaluation of microscopic colitis. The exam was otherwise without abnormality. Impression: - Diverticulosis in the sigmoid colon. - The entire examined colon is normal. Biopsied. - The examination was otherwise normal. Recommendation: - Discharge patient to home. - Resume previous diet. - Continue present medications. - Await pathology results. - Repeat colonoscopy in 10 years for screening purposes. - Return to my office in 1 week. Procedure Code(s): --- Professional --- 70229, Colonoscopy, flexible; with biopsy, single or multiple Diagnosis Code(s): --- Professional --- K57.32, Diverticulitis of large intestine without perforation or abscess without bleeding K57.30, Diverticulosis of large intestine without perforation or abscess without bleeding R93.3, Abnormal findings on diagnostic imaging of other parts of digestive tract CPT copyright 2017 [place] [employer]. All rights reserved. The codes documented in this report are preliminary and upon car painter review may be revised to meet current compliance requirements. MD Jayjay Teixeira MD 08/28/2018 9:01:13 AM This report has been signed electronically. Number of Addenda: 0 Note Initiated On: 08/28/2018 8:27 AM 08/28/18 0901 Date Jayjay Field MD Cosigner Signature: Date (if indicated) CC: Jayjay Field MD; Akin Barfield MD Date Dictated: 08/28/18826 Date Transcribed: Public Transportation Inspector: DP Signed COLON BIOPSY (CHOOSE Observed: 08/28/2018 Status: F Source: [facility]) 8:30 AM [facility] REPOSITORY Patient: SAULO GEIGER I : 1960 (58/F) Acct Num: [id number] Phys: Rashida BULLARD,Jayjay Unit Num: [id number] Loc: EN Specimen: [id number] Received: 08/28/18 - 1015 Spec Type: COLON BX TISSUES 1 TISSUES: COLON BIOPSY GROSS DESCRIPTION Received in fixative is one container labeled with the patient's name and designated random colon biopsy. The specimen consists of multiple irregular fragments of light osborne soft tissue that in aggregate measure 2 x 0.5 x 0.1 cm. The specimen is totally submitted in one cassette. / AM:areli 08/28/18 TC:4 CPT: 54201 HEADER OPERATION: Colonoscopy PRE-OP DIAGNOSIS: Diverticulitis TISSUE SUBMITTED: Random colon biopsies MICROSCOPIC DESCRIPTION Slides are reviewed. MICROSCOPIC DIAGNOSIS Colon, random biopsy: Fragments of colonic mucosa, no pathologic diagnosis. SJ:areli 08/29/18 Signed Zane Chan MD 08/29/18 <signature on file> Performed By: #### PCOLBX #### [facility] [address] [place], [address] COMP METABOLIC PANEL Collected: 08/10/2018 Status: F Source: [place] 9:42 AM [facility] REPOSITORY TYPE CODE TESTS RESULT OUT OF REFERENCE UNITS RANGE LAB TP 6.3-8.0 g/dL Protein, Total 7.1 LAB ALB 3.9-4.9 g/dL Albumin 4.5 LAB CA 8.5-10.2 mg/dL Calcium, Total 9.4 LAB TBIL 0.2-1.3 mg/dL Bilirubin, Total 0.2 LAB ALKP 34-123 U/L Alkaline High Phosphatase 124 LAB AST 13-35 U/L AST 20 LAB GLU 74-99 mg/dL Glucose High 102 Result Comment: The [place] [employer] (ADA) provides guidance for cutoff values for fasting glucose and random glucose. The ADA defines fasting as no caloric intake for at least 8 hours. Fas ting plasma glucose results between 100 to 125 mg/dL indicate increased risk for diabetes (prediabetes). Fasting plasma glucose results greater than or equal to 126 mg/dL meet the criteria for diagnosis of diabetes. In the absence of unequivocal hyperglycemia, results should be confirmed by repeat testing. In a patient with classic symptoms of hyperglycemia or hyperglycemic crisis, random plasma glucose results greater than or equal to 200 mg/dL meet the criteria for diagnosis of diabetes. Reference: Standards of Medical Care in Diabetes 2016, [place] [employer]. Diabetes Care. 2016.39(Suppl 1). LAB BUN 7-21 mg/dL BUN 16 LAB CRET 0.58-0.96 mg/dL Creatinine High 0.99 LAB NA 136-144 mmol/L Sodium High 147 LAB K 3.7-5.1 mmol/L Potassium 4.2 LAB CL 97-105 mmol/L Chloride High 114 LAB CO2 22-30 mmol/L Low CO2 19 LAB AGAP 9-18 mmol/L Anion Gap 14 LAB ALT 7-38 U/L ALT 36 LAB GFRAA eGFR- Amer. >60 LAB GFRNAA . eGFR-All Other Races 58 Result Comment: eGFR (Estimated GFR) Units of measure: mL/min/1.73 meters squared eGFR is derived from the reexpressed MDRD Study equation using the following parameters: serum creatinine, age, gender and race. The creatinine assay has been calibrated to be traceable to IDMS. An eGFR <60 mL/min/1.73m2 for >3 months is consistent with chronic kidney disease. Refer to KDOQI guidelines for clinical interpretation. In patients with unstable renal function, e.g. those with acute kidney injury, the eGFR may not accurately reflect actual GFR. Performed By: #### CMP #### [facility] [address] [place], [place] [address] LIPID PANEL, BASIC Collected: 08/10/2018 Status: F Source: [place] 9:41 AM [facility] REPOSITORY TYPE CODE TESTS RESULT OUT OF REFERENCE UNITS RANGE LAB CHOL <200 mg/dL Cholesterol High 234 Result Comment: <200 mg/dL, Desirable 200-239 mg/dL, Borderline high >239 mg/dL, High LAB TRIGLY <150 mg/dL Triglyceride High 228 Result Comment: <150 mg/dL, Normal 150-199 mg/dL, Borderline high 200-499 mg/dL, High >499 mg/dL, Very high LAB HDL >39 mg/dL HDL-Cholesterol 45 Result Comment: 40-59 mg/dL, Acceptable >59 mg/dL, High: Negative risk factor for coronary heart disease <40 mg/dL, Low: Positive risk factor for coronary heart disease LAB LDL <100 mg/dL LDL-Cholesterol High 143 Result Comment: <100 mg/dL, Optimal 100-129 mg/dL, Near optimal/above optimal 130-159 mg/dL, Borderline high 160-189 mg/dL, High >189 mg/dL, Very high Secondary prevention optimal LDL Cholesterol levels are recommended to be < 70 mg/dL LAB NONHDL <130 mg/dL Non HDL High Cholesterol 189 Result Comment: <130 mg/dL, Optimal 130-159 mg/dL, Near optimal/above optimal 160-189 mg/dL, Borderline high 190-219 mg/dL, High >219 mg/dL, Very high Secondary prevention optimal non HDL Cholesterol levels are recommended to be < 100 mg/dL LAB FT hrs Fasting Time 12 LAB VLDL <30 mg/dL High VLDL Cholesterol 46 LAB TCHDL <5.10 High TC:HDL Ratio 5.20 LAB LDLHDL <2.54 High LDL:HDL Ratio 3.18 Result Comment: Reference: 1. National Cholesterol Education Program ATP III Guideline At-A-Glance Quick Desk Reference: National Heart, Lung, and Blood [place]. National Institutes of Health. 2001: NIH Publication No. 01-3305. 2. An International Atherosclerosis Society position paper: global recommendations for the management of dyslipidemia: executive summary, Atherosclerosis. 2014: 232(2):410-413. Performed By: #### LIPB, TSH #### [facility] [address] [place] [address] TSH Collected: 08/10/2018 Status: F Source: [place] 9:[address] [facility] REPOSITORY TYPE CODE TESTS RESULT OUT OF RANGE REFERENCE UNITS LAB TSH 0.400-5.500 uU/mL TSH 0.778 Performed By: #### LIPB, TSH #### [facility] [address] [place] [address] PROGRESS Observed: 08/10/2018 Status: COMPLETED Source: [place] 8:[address] [facility] REPOSITORY HNO ID: [id number] Author: Akin Barfield Service: (none) Author Type: Physician Type: Progress Notes Filed: 08/26/2018 8:15 AM Note Text: Transitional Care Management Progress Note The patients TCM visit was performed within the 14 days of discharge. Patient's Date of discharge: Pt discharged from [facility] on 07/29/18. Date of initial coordinator contact after discharge: 07/30/2018 Discharge diagnosis: acute diverticlitis Medication review completed Yes Akin Barfield MD Provider Documentation: In follow-up of hospitalization, Saulo Geiger is a 58 year old female with the chief complaint of Abdominal pain. Was admitted to [facility] 09/24/17 and discharged 07/29/18 I have reviewed the patient?s last hospital course including diagnostic testing performed during this hospitalization, their discharge medications, and my assessment and plan with the patient and any family members present at today?s visit. Diverticulitis pain resolved. Was treated with Cipro 500 mg BID and Flagyl 500 mg every 8 hours. Also OxyIR 5mg every 4 hours prn. Now right lower back pain. Not like her usual back pain. Reviewed episode of throat swelling after bee sting. EpiPen effective but did not have on her. Ordered from pharmacy. Does not have because of cost. PAST MEDICAL HISTORY: Reviewed and updated ALLERGIES: Reviewed and updated MEDICATIONS: Reviewed and updated Current Outpatient Prescriptions: cholecalciferol, vitamin D3, (VITAMIN D3 ORAL) Take 1 capsule by mouth once daily. EPINEPHrine (EPIPEN) 0.3 mg/0.3 mL auto-injector Inject 0.3 ml subcutaneously as needed for bee sting colestipol (COLESTID) 1 gram tablet Take 3 tablets by mouth once daily. diltiazem CD (CARTIA XT) 180 mg 24 hr capsule Take 1 capsule by mouth once daily. SUMAtriptan (IMITREX) 100 mg tablet Take at onset of migraine. May repeat once after 2 hours if needed. No more than 2 pills in a 24 hour period. topiramate (TOPAMAX) 100 mg tablet TAKE 2 TABLETS TWICE A DAY IN THE MORNING AND AT BEDTIME promethazine (PHENERGAN) 25 mg tablet Take 0.5-1 tablets by mouth every 6 hours as needed. gabapentin (NEURONTIN) 300 mg capsule Take 3 pills in the morning and 3 pills at bedtime. DULoxetine (CYMBALTA) 60 mg capsule Take 1 capsule by mouth twice daily. (Dr. Herrera) ALPRAZolam (XANAX) 0.5 mg tablet Take 1 tablet by mouth twice daily as needed. (Dr. Herrera) MV with Bah-Bnaczqfy-Jpwmui (CENTRUM SILVER) 0.4-300-250 mg-mcg-mcg tab Take 1 tablet by mouth once daily. budesonide, enteric coated (ENTOCORT EC) 3 mg 24 hr capsule Take 3 capsules by mouth once daily. (Patient not taking: Reported on 08/10/2018 ) No current facility-administered medications for this visit. SOCIAL HISTORY: Reviewed and updated Social History Marital status: Spouse name: Stalin Years of education: 10th grade Number of children: 2 Occupational History Occupation Employer Comment [employer]* Disabled from work Social History Main Topics Smoking status: Former Smoker Packs/day: 0.50 Years: 0.00 Types: Cigarettes Quit date: 07/21/2015 Smokeless tobacco: Never Used Comment: was smoking less than one half pack; had cut back until able to quit 08/10/2009 Alcohol use: Yes Comment: rarely Drug use: No Sexual activity: Yes Partners with: Male control/protection: Other Comment: post menopausal FAMILY HISTORY: Reviewed and updated REVIEW OF SYSTEMS: See HPI All other systems reviewed and negative, other than HPI. PHYSICAL EXAMINATION BP 116/80 Pulse 60 Temp (Src) 98.2 (Left Tympanic) Resp 16 Wt 158 lb (71.7kg) LMP 10/18/2006 General appearance: Well appearing, alert, in no acute distress, well-hydrated, well nourished., well appearing, alert, in no acute distress and well-hydrated, well nourished, motor and sensory appear to be normal Lungs: lungs clear to auscultation. No wheezing, rhonchi, rales unlabored on room air Heart: RRR without murmur, gallop, or rubs. No ectopy Abdomen: Abdomen soft, non-tender. Bowel sounds normal. No masses, organomegaly Back: mild paravertebral muscle tenderness. No flank tenderness. No spine tenderness. Extremities: Extremities normal. No deformities, edema, or skin discoloration. 1. I have reviewed the patient record including associated test results during the last hospitalization Yes 2. I have reviewed Lab test Yes 3. I have reviewed Radiology test Yes 4. I reviewed assessment/plan with the patient/family member Yes ASSESSMENT/PLAN Encounter Diagnosis ICD-10-CM 1. Acute diverticulitis K57.92 COMP METABOLIC PANEL 2. Elevated LFTs R94.5 COMP METABOLIC PANEL 3. Hypoalbuminemia E88.09 4. Acute right-sided low back pain without sciatica M54.5 posterolateral back pain (lower rib cage and flank area); not hurting today Dr. Field doing colonoscopy in about a couple weeks. Update labs today--follow up on elevated LFTs. Monitor the back pain. Chronic back pain stable with gabapentin. EpiPen RX sent through--looks like should be covered now. Above issues addressed with patient. Patient involved in shared decision making for management of medical issues. History and medications reviewed. Epic updated as needed Refills taken care of and meds adjusted as indicated after reviewed history, exam and labs. Health Maintenance reviewed. Updated record and/or ordered tests as recorded. Encouraged on efforts at healthy diet and regular exercise and adequate sleep. The majority of the visit was spent counseling and/or coordinating care for the patient. Wbnj-qx-cckr time was at least 25 minutes. Akin Barfield MD August 10, 2018 8:36 AM CNOV Observed: 08/10/2018 Status: COMPLETED Source: [place] 8:[address] [facility] REPOSITORY Office Visit (INTMWS) SAULO GEIGER I ([id number]) 1960 F NFR Date Time Provider Department 08/10/18 8:00 AM AKIN BARFIELD INTMWS During your visit today, we recorded the following information about you: Temperature Pulse Respiration Blood pressure 98.2 degrees 60/minute 16/minute 116/80 Weight 71.7 kg Neyda Templeton LPN 08/10/2018 8:36 AM Signed Transitional Care Management Progress Note The patients TCM visit was performed within the 14 days of discharge. TCM Eligibility Documentation The following information was gathered during the initial Patient Outreach Encounter. Date of Outreach: 07/31/2018 07/30/2018 Outreach Attempt 1: - Contact Made Date of Discharge 07/29/2018 07/29/2018 Some recent data might be hidden If no data exists please enter it manually. If data exists please delete date of discharge and date of initial contact seen below. Patient's Date of discharge: 07/29/2018 Date of initial coordinator contact after discharge: 07/30/2018 Discharge diagnosis: Diverticulitis Medication review completed Yes Neyda Templeton LPN Provider Documentation: In follow-up of hospitalization, Saulo Geiger is a 58 year old female with the chief complaint of n/a I have reviewed the patient?s last hospital course including diagnostic testing performed during this hospitalization, their discharge medications, and my assessment and plan with the patient and any family members present at today?s visit. Akin Barfield MD 08/26/2018 8:15 AM Signed Transitional Care Management Progress Note The patients TCM visit was performed within the 14 days of discharge. Patient's Date of discharge: Pt discharged from [facility] on 07/29/18. Date of initial coordinator contact after discharge: 07/30/2018 Discharge diagnosis: acute diverticlitis Medication review completed Yes Akin Barfield MD Provider Documentation: In follow-up of hospitalization, Saulo Geiger is a 58 year old female with the chief complaint of Abdominal pain. Was admitted to [facility] 09/24/17 and discharged 07/29/18 I have reviewed the patient?s last hospital course including diagnostic testing performed during this hospitalization, their discharge medications, and my assessment and plan with the patient and any family members present at today?s visit. Diverticulitis pain resolved. Was treated with Cipro 500 mg BID and Flagyl 500 mg every 8 hours. Also OxyIR 5mg every 4 hours prn. Now right lower back pain. Not like her usual back pain. Reviewed episode of throat swelling after bee sting. EpiPen effective but did not have on her. Ordered from pharmacy. Does not have because of cost. PAST MEDICAL HISTORY: Reviewed and updated ALLERGIES: Reviewed and updated MEDICATIONS: Reviewed and updated Current Outpatient Prescriptions: cholecalciferol, vitamin D3, (VITAMIN D3 ORAL) Take 1 capsule by mouth once daily. EPINEPHrine (EPIPEN) 0.3 mg/0.3 mL auto-injector Inject 0.3 ml subcutaneously as needed for bee sting colestipol (COLESTID) 1 gram tablet Take 3 tablets by mouth once daily. diltiazem CD (CARTIA XT) 180 mg 24 hr capsule Take 1 capsule by mouth once daily. SUMAtriptan (IMITREX) 100 mg tablet Take at onset of migraine. May repeat once after 2 hours if needed. No more than 2 pills in a 24 hour period. topiramate (TOPAMAX) 100 mg tablet TAKE 2 TABLETS TWICE A DAY IN THE MORNING AND AT BEDTIME promethazine (PHENERGAN) 25 mg tablet Take 0.5-1 tablets by mouth every 6 hours as needed. gabapentin (NEURONTIN) 300 mg capsule Take 3 pills in the morning and 3 pills at bedtime. DULoxetine (CYMBALTA) 60 mg capsule Take 1 capsule by mouth twice daily. (Dr. Herrera) ALPRAZolam (XANAX) 0.5 mg tablet Take 1 tablet by mouth twice daily as needed. (Dr. Herrera) MV with Bsy-Cnjqhoia-Drpxya (CENTRUM SILVER) 0.4-300-250 mg-mcg-mcg tab Take 1 tablet by mouth once daily. budesonide, enteric coated (ENTOCORT EC) 3 mg 24 hr capsule Take 3 capsules by mouth once daily. (Patient not taking: Reported on 08/10/2018 ) No current facility-administered medications for this visit. SOCIAL HISTORY: Reviewed and updated Social History Marital status: Spouse name: Stalin Years of education: 10th grade Number of children: 2 Occupational History Occupation Employer Comment [employer]* Disabled from work Social History Main Topics Smoking status: Former Smoker Packs/day: 0.50 Years: 0.00 Types: Cigarettes Quit date: 07/21/2015 Smokeless tobacco: Never Used Comment: was smoking less than one half pack; had cut back until able to quit 08/10/2009 Alcohol use: Yes Comment: rarely Drug use: No Sexual activity: Yes Partners with: Male control/protection: Other Comment: post menopausal FAMILY HISTORY: Reviewed and updated REVIEW OF SYSTEMS: See HPI All other systems reviewed and negative, other than HPI. PHYSICAL EXAMINATION BP 116/80 Pulse 60 Temp (Src) 98.2 (Left Tympanic) Resp 16 Wt 158 lb (71.7kg) LMP 10/18/2006 General appearance: Well appearing, alert, in no acute distress, well-hydrated, well nourished., well appearing, alert, in no acute distress and well-hydrated, well nourished, motor and sensory appear to be normal Lungs: lungs clear to auscultation. No wheezing, rhonchi, rales unlabored on room air Heart: RRR without murmur, gallop, or rubs. No ectopy Abdomen: Abdomen soft, non-tender. Bowel sounds normal. No masses, organomegaly Back: mild paravertebral muscle tenderness. No flank tenderness. No spine tenderness. Extremities: Extremities normal. No deformities, edema, or skin discoloration. 1. I have reviewed the patient record including associated test results during the last hospitalization Yes 2. I have reviewed Lab test Yes 3. I have reviewed Radiology test Yes 4. I reviewed assessment/plan with the patient/family member Yes ASSESSMENT/PLAN Encounter Diagnosis ICD-10-CM 1. Acute diverticulitis K57.92 COMP METABOLIC PANEL 2. Elevated LFTs R94.5 COMP METABOLIC PANEL 3. Hypoalbuminemia E88.09 4. Acute right-sided low back pain without sciatica M54.5 posterolateral back pain (lower rib cage and flank area); not hurting today Dr. Field doing colonoscopy in about a couple weeks. Update labs today--follow up on elevated LFTs. Monitor the back pain. Chronic back pain stable with gabapentin. EpiPen RX sent through--looks like should be covered now. Above issues addressed with patient. Patient involved in shared decision making for management of medical issues. History and medications reviewed. Epic updated as needed Refills taken care of and meds adjusted as indicated after reviewed history, exam and labs. Health Maintenance reviewed. Updated record and/or ordered tests as recorded. Encouraged on efforts at healthy diet and regular exercise and adequate sleep. The majority of the visit was spent counseling and/or coordinating care for the patient. Jmkz-jn-doit time was at least 25 minutes. Akin Barfield MD August 10, 2018 8:36 AM Referring Provider: AKIN BARFIELD [[id number]] Allergies As of Date: 08/10/2018 Noted Allergy Reaction bee stings [Other] 05/16/2005 MORPHINE 04/03/2017 11 - Vomiting RELAFEN (NABUMETONE) 11/26/2008 6 - Diarrhea Comments: 2004 tried med Date Reviewed: 08/10/2018 Reviewed by: Neyda Templeton LPN - Fully Assessed Reason for Visit: [facility] Hospital follow-up [Other] Primary Visit Diagnosis:Acute diverticulitis [K57.92] Other Visit Diagnoses:Elevated LFTs [R94.5] Hypoalbuminemia [E88.09] Acute right-sided low back pain without sciatica [M54.5] Comment:posterolateral back pain (lower rib cage and flank area); not hurting today Order(s):EPINEPHrine (EPIPEN) 0.3 mg/0.3 mL auto-injectorInject 0.3 ml subcutaneously as needed for bee stingDisp: 2 EachRfl: 1 colestipol (COLESTID) 1 gram tabletTake 3 tablets by mouth once daily.Disp: Rfl: COMP METABOLIC PANEL [SQCMP] Order #: [id number] FUTURE Prescriptions as of 08/10/2018 Sig: ALPRAZOLAM 0.5 MG TABLET Take 1 tablet by mouth twice * VITAMIN D3 ORAL Take 1 capsule by mouth once * COLESTIPOL 1 GRAM TABLET Take 3 tablets by mouth once * DILTIAZEM SR 180 MG 24 HR CAP Take 1 capsule by mouth once * DULOXETINE 60 MG CAPSULE,RAUL* Take 1 capsule by mouth twice* EPINEPHRINE 0.3 MG/0.3 ML INJ* Inject 0.3 ml subcutaneously * GABAPENTIN 300 MG CAPSULE Take 3 pills in the morning a* RFUKWAIJ-YNP-IGFTH ACID 0.4 M* Take 1 tablet by mouth once d* PROMETHAZINE 25 MG TABLET Take 0.5-1 tablets by mouth e* SUMATRIPTAN 100 MG TABLET Take at onset of migraine. Ma* TOPIRAMATE 100 MG TABLET TAKE 2 TABLETS TWICE A DAY IN* BUDESONIDE DR - ER 3 MG CAPSU* Take 3 capsules by mouth once* Patient not taking: Reported on 08/10/2018 Medication notes this encounter COLESTIPOL 1 GRAM TABLET >> Akin Barfield MD 08/10/2018 9:01 AM >> AKIN BARFIELD MD Sat Aug 10, 2018 9:01 AM Taking 3 pills once daily Problem List As Of Date 08/10/2018 Noted Resolved CONCUSSION W/O COMA [S06.0X0A] SPRAIN OF NECK [S13.9XXA] SPRAIN THORACIC REGION [S23.9XXA] Migraine variant [G43.809] More... SKIN SENSATION DISTURB [R20.9] ESOPHAGEAL REFLUX [K21.9] Displacement of intervertebral disc of thoracol*INVALID FOR* Bee sting allergy [T63.91XA] INVALID FOR* SPRAIN LUMBOSACRAL [S33.5XXA] INVALID FOR* Painful respiration [R07.1] INVALID FOR*08/21/2013 Bruxism (teeth grinding) [F45.8] INVALID FOR* Lumbago [M54.5] INVALID FOR* Cervicalgia [M54.2] INVALID FOR* More... DDD (degenerative disc disease), lumbar [M51.36]INVALID FOR* More... Lumbar spondylosis [M47.816] INVALID FOR* Chronic back pain [M54.9, G89.29] INVALID FOR* Hypercholesteremia [E78.00] More... Bright red rectal bleeding [K62.5] INVALID FOR*07/29/2015 Nausea [R11.0] INVALID FOR*07/29/2015 Non-cardiac chest pain [R07.89] INVALID FOR* More... Displacement of cervical intervertebral disc wi*INVALID FOR* Visit Notes: >> Neyda Templeton LPN Sat Aug 10, 2018 8:18 AM Status: Signed Transitional Care Management Progress Note The patients TCM visit was performed within the 14 days of discharge. TCM Eligibility Documentation The following information was gathered during the initial Patient Outreach Encounter. Date of Outreach: 07/31/2018 07/30/2018 Outreach Attempt 1: - Contact Made Date of Discharge 07/29/2018 07/29/2018 Some recent data might be hidden If no data exists please enter it manually. If data exists please delete date of discharge and date of initial contact seen below. Patient's Date of discharge: 07/29/2018 Date of initial coordinator contact after discharge: 07/30/2018 Discharge diagnosis: Diverticulitis Medication review completed Yes Neyda Templeton LPN Provider Documentation: In follow-up of hospitalization, Saulo Geiger is a 58 year old female with the chief complaint of n/a I have reviewed the patient?s last hospital course including diagnostic testing performed during this hospitalization, their discharge medications, and my assessment and plan with the patient and any family members present at today?s visit. Prescriptions ordered this encounter Disp Refills Start End EPINEPHRINE 0.3 MG/0.3 ML INJECTION,* 2 Ea* 1 08/10/2018 Sig: Inject 0.3 ml subcutaneously as needed for bee sting COLESTIPOL 1 GRAM TABLET 08/10/2018 Class: Med Update Route: ORAL Sig: Take 3 tablets by mouth once daily. Medications Discontinued During This Encounter EPINEPHrine 0.3 mg/0.3 mL PnIj 2 Ea* 1 01/30/2012 08/10/2018 Sig: Inject 0.3 ml subcutaneously as needed for bee sting Disc: Reason for discontinue is not on file. fluticasone (FLONASE) 50 mcg/actuati* 1 Tye* 0 07/23/2017 08/10/2018 Route: EACH NOSTRIL Sig: Use 2 Sprays in each nostril once daily. Rinse mouth after use. Patient not taking: Reported on 08/10/2018 Disc: Reason for discontinue is not on file. HYDROcodone-acetaminophen (NORCO) 5-* 30 t* 0 03/05/2017 08/10/2018 Class: Print RX Route: ORAL Sig: Take 1 tablet by mouth every 4 hours as needed. Patient not taking: Reported on 08/10/2018 Disc: Reason for discontinue is not on file. oxyCODONE ir (OXYIR) 5 mg capsule 08/10/2018 Class: Historical Med Route: ORAL Sig: Take 5 mg by mouth every 4 hours as needed. Disc: Course of therapy completed colestipol (COLESTID) 1 gram tablet 120 * 5 05/30/2018 08/10/2018 Sig: take 2 tablets by mouth twice a day Patient taking differently: take 3 tablets by mouth twice a day Disc: Reason for discontinue is not on file. Disposition: Return for Keep appointment as scheduled. Follow-up and Disposition History Recorded Encounter Status:Closed by AKIN BARFIELD MD on 08/26/18 PROGRESS Observed: 07/30/2018 Status: COMPLETED Source: [place] 2:03 PM [facility] [place] REPOSITORY [facility] ID: [id number] Author: Marina Torres LPN Service: (none) Author Type: (none) Type: Progress Notes Filed: 08/12/2018 9:29 AM Note Text: TRANSITION CARE MANAGEMENT (TCM) INITIAL CONTACT [employer] Outreach Provider Action/FYI: Initial contact with patient post discharge, spoke to patient. Patient identified by name and . TRANSITION CARE MANAGEMENT INITIAL OUTREACH DOCUMENTATION: Date of Outreach: 07/30/2018 Outreach Attempt 1: Contact Made Date of Discharge 07/29/2018 Some recent data might be hidden SUMMARY: -Pt discharged from [facility] on 07/29/18. -Admitted for: acute diverticlitis Do you have a hospital follow up appointment with your PCP? Appointment on 08/10/[address] barfield. Appt was with this call today MEDICATIONS: Many patients have questions or concerns about their medications once they are home. Were you prescribed any new medications? If yes, what are those medications? cipro 500 mg twice a day for 5 days Flagyl 500 mg every 8 hours #15 tablets Were you told to hold any medications? No Were any of your medications discontinued? No Do you have any questions about getting or taking your medications? No Your discharge instructions/After visit Summary (AVS) are important in guiding you through the recovery process. Is there anything I might help you understand? No Do you have all the necessary equipment and supplies at home? Yes Medical records from recent hospitalization: Placed for provider to review Pt is to arrange follow up also with Dr. Field to get colonoscopy. She says she will need labs at [facility] also. SHABBIR Observed: 07/30/2018 Status: COMPLETED Source: [place] 12:[address] [facility] REPOSITORY Patient Outreach (INTMWS) SAULO GEIGER I ([id number]) 1960 F NFR Date Time Provider Department 07/30/18 AKIN BARFIELD INTMWS During your visit today, we recorded the following information about you: Marina Torres LPN 08/12/2018 9:29 AM Signed TRANSITION CARE MANAGEMENT (TCM) INITIAL CONTACT [employer] Outreach Provider Action/FYI: Initial contact with patient post discharge, spoke to patient. Patient identified by name and . TRANSITION CARE MANAGEMENT INITIAL OUTREACH DOCUMENTATION: Date of Outreach: 07/30/2018 Outreach Attempt 1: Contact Made Date of Discharge 07/29/2018 Some recent data might be hidden SUMMARY: -Pt discharged from [facility] on 07/29/18. -Admitted for: acute diverticlitis Do you have a hospital follow up appointment with your PCP? Appointment on 08/10/[address] barfield. [facility] was with this call today MEDICATIONS: Many patients have questions or concerns about their medications once they are home. Were you prescribed any new medications? If yes, what are those medications? cipro 500 mg twice a day for 5 days Flagyl 500 mg every 8 hours #15 tablets Were you told to hold any medications? No Were any of your medications discontinued? No Do you have any questions about getting or taking your medications? No Your discharge instructions/After visit Summary (AVS) are important in guiding you through the recovery process. Is there anything I might help you understand? No Do you have all the necessary equipment and supplies at home? Yes Medical records from recent hospitalization: Placed for provider to review Pt is to arrange follow up also with Dr. Field to get colonoscopy. She says she will need labs at appt also. Allergies As of Date: 07/30/2018 Noted Allergy Reaction bee stings [Other] 05/16/2005 MORPHINE 04/03/2017 11 - Vomiting RELAFEN (NABUMETONE) 11/26/2008 6 - Diarrhea Comments: 2004 tried med Date Reviewed: 05/29/2018 Reviewed by: González Nieves - Fully Assessed Reason for Visit: Transition Of Care [4074] Prescriptions as of 07/30/2018 Sig: DILTIAZEM SR 180 MG 24 HR CAP Take 1 capsule by mouth once * SUMATRIPTAN 100 MG TABLET Take at onset of migraine. Ma* TOPIRAMATE 100 MG TABLET TAKE 2 TABLETS TWICE A DAY IN* X COLESTIPOL 1 GRAM TABLET take 2 tablets by mouth twice* Patient taking differently: take 3 tablets by mouth twice* PROMETHAZINE 25 MG TABLET Take 0.5-1 tablets by mouth e* GABAPENTIN 300 MG CAPSULE Take 3 pills in the morning a* BUDESONIDE DR - ER 3 MG CAPSU* Take 3 capsules by mouth once* Patient not taking: Reported on 08/10/2018 X FLUTICASONE 50 MCG/ACTUATION * Use 2 Sprays in each nostril * Patient not taking: Reported on 08/10/2018 X HYDROCODONE 5 MG-ACETAMINOPHE* Take 1 tablet by mouth every * Patient not taking: Reported on 08/10/2018 DULOXETINE 60 MG CAPSULE,RAUL* Take 1 capsule by mouth twice* ALPRAZOLAM 0.5 MG TABLET Take 1 tablet by mouth twice * VIJNWOCZ-QUX-MWMHQ ACID 0.4 M* Take 1 tablet by mouth once d* X * EPINEPHRINE 0.3 MG/0.3 ML INJ* Inject 0.3 ml subcutaneously * Problem List As Of Date 07/30/2018 Noted Resolved CONCUSSION W/O COMA [S06.0X0A] SPRAIN OF NECK [S13.9XXA] SPRAIN THORACIC REGION [S23.9XXA] Migraine variant [G43.809] More... SKIN SENSATION DISTURB [R20.9] ESOPHAGEAL REFLUX [K21.9] Displacement of intervertebral disc of thoracol*INVALID FOR* Bee sting allergy [T63.91XA] INVALID FOR* SPRAIN LUMBOSACRAL [S33.5XXA] INVALID FOR* Painful respiration [R07.1] INVALID FOR*08/21/2013 Bruxism (teeth grinding) [F45.8] INVALID FOR* Lumbago [M54.5] INVALID FOR* Cervicalgia [M54.2] INVALID FOR* More... DDD (degenerative disc disease), lumbar [M51.36]INVALID FOR* More... Lumbar spondylosis [M47.816] INVALID FOR* Chronic back pain [M54.9, G89.29] INVALID FOR* Hypercholesteremia [E78.00] More... Bright red rectal bleeding [K62.5] INVALID FOR*07/29/2015 Nausea [R11.0] INVALID FOR*07/29/2015 Non-cardiac chest pain [R07.89] INVALID FOR* More... Displacement of cervical intervertebral disc wi*INVALID FOR* Encounter Status:Closed by MARINA TORRES LPN on 08/12/18 DISCHARGE SUMMARY Observed: 07/29/2018 Status: F Source: [place] 9:15 AM [facility] REPOSITORY [facility] Medical Records Department [address] [place] [address] Discharge Summary 07/29/18 0912 MR#: [id number] Acct: [id number] Name: SAULO GEIGER I Rep #: [id number] : 1960 58 From: Dominic Cox MD PCP: Akin Barfield MD Status: ADM IN Location: [place] [address] Discharge Date and Diagnosis - Problem List Patient Problems: Active and Suspected Problems Diverticulitis large intestine (Acute) Diverticulitis (Acute) Date of Admission: 07/25/18 Date of Discharge: 07/29/18 - Primary Discharge Diagnosis Active and Suspected Problems Diverticulitis large intestine (Acute) Diverticulitis (Acute) - Secondary Discharge Diagnosis Chronic Problems Hypertension (Chronic) Migraine headache (Chronic) Anxiety and depression (Chronic) Chronic back pain (Chronic) Hospital Course and Treatment Imaging Results: Clinical Impression(s) from Imaging Studies Abdomen/Pelvis CT 07/25/18 12:08 IMPRESSION: Findings in keeping with diverticulitis affecting the descending colon as described. Normal appearance of the retrocecal appendix. Electronically Signed: Will Arango MD at 13:15 EST Tel [phone], Service support , ADDENDUM: 07/26/18 204 Liver Ultrasound 07/26/18 14:15 IMPRESSION: The liver is increased in echogenicity which can be seen with fatty infiltration. No masses are seen in the liver. The common bile duct measures 9-10 mm in diameter which is not unexpected after cholecystectomy. Electronically Signed: Isabell Harden MD at 20:29 EST Tel Direct: [phone], Service support , ADDENDUM: 07/26/18 2043 Summary of Care Provided: The patient is a 58 year old F admitted with right-sided abdominal pain. Imaging studies on admission demonstrated acute diverticulitis involving the descending colon 1. Acute diverticulitis involving the descending colon was treated with ciprofloxacin as well as Flagyl with significant improvement. Patient was also seen in consultation by general surgery Dr. Field plan is for patient undergo colonoscopy as outpatient 2. Elevated liver function test ultrasound of the liver obtained demonstrated features consistent with fatty liver patient liver function tests did improve during her stay in the hospital patient was advised to follow-up with her primary care physician Dr. Barfield for repeat liver function test as outpatient 3. Hypertension-blood pressure controlled, home medications continued with dose adjustment as needed 4. Chronic migraine headaches stable on Topamax 5. Depression with anxiety 6. DVT prophylaxis SC heparin Patient Problems: Active and Suspected Problems Diverticulitis large intestine (Acute) Diverticulitis (Acute) - Physical Exam General: Alert Neck: Supple Lungs: Clear to auscultation Cardiovascular: Regular rate Neurological: Neuro grossly intact Psych/Mental Status: Normal Affect Vital Signs Temp Pulse Resp BP Pulse Ox 98.4 F 66 16 111/66 96 07/29/18 05:43 07/29/18 05:43 07/29/18 05:43 07/29/18 05:43 07/29/18 05:43 Oxygen Delivery Method Room Air Weight: 73.5 kg Body Mass Index (BMI) 26.1 Intake and Output for Last 24 Hours Intake Total 3649 / 3649 5161 / 5161 643 / 643 Balance 3649 / 3649 5161 / 5161 643 / 643 Discharge Diet: No Restrictions Discharge Activity: May not drive while taking narcotic pain medications. Home Medications: Medications to take at Discharge ALPRAZolam [Xanax] 0.5 mg PO BID 05/15/14 Diltiazem CD [Cardizem CD] 180 mg PO DAILY 05/15/14 Duloxetine Hcl [Cymbalta] 60 mg PO BID 05/15/14 Gabapentin [Neurontin] 900 mg PO BIDCM 05/15/14 Topiramate [Topamax] 400 mg PO BID 05/15/14 proMETHazine tablet [Phenergan tablet] 25 mg PO Q6H PRN PRN #10 tablet 05/15/14 Colestipol Tablet [Colestid Tablet] 3 tab PO DAILY 07/25/18 Fluticasone 0.05% [Flonase Nasal [place]] 2 spray NASAL DAILY 07/25/18 Sumatriptan Succinate [Imitrex] 100 mg PO X1 PRN 07/25/18 Ciprofloxacin [Cipro] 500 mg PO BID #10 tablet 07/29/18 Metronidazole [Flagyl] 500 mg PO Q8H #15 tablet 07/29/18 Oxycodone [Oxyir] 5 mg PO Q4H PRN PRN 3 Days #14 tablet 07/29/18 Following Prescrptions Were Given to Patient: Ciprofloxacin [Cipro] 500 mg PO BID #10 tablet Metronidazole [Flagyl] 500 mg PO Q8H #15 tablet Oxycodone [Oxyir] 5 mg PO Q4H PRN PRN 3 Days #14 tablet PRN Reason: Pain Primary Care Physician: Akin Barfield MD [Primary Care Provider] - Please follow up with your Primary Care Physician in: in 5- 7 days Please Follow Up With: Jayjay Field MD When: for outpatient Colonoscopy Minutes spent on discharge:: 35 Patient Condition:: Stable Medical Necessity - Tobacco Use Smoking Status: Former smoker Tobacco Use: Non-smoker Meaningful Use Info Meaningful Use Diagnoses (Choose all that apply): None applicable Code Visit Inpatient E AND M: 19536 Disch Hosp 07/29/18914 <Electronically signed by Dominic Cox MD> Date Dominic Cox MD Cosigner Signature (if applicable): Date _ CC: Dominic Cox MD; Akin Barfield MD Signed DISCHARGE INSTRUCTION Observed: 07/29/2018 Status: F Source: RHOME 8:33 AM [facility] REPOSITORY [facility] Medical Records Department [address] [place] [address] Instructions for Home/Discharge Instructions 07/29/18 0832 MR#: [id number] Acct: [id number] Name: SAULO GEIGER I Rep #: [id number] : 1960 58 From: Dominic Cox MD PCP: Akin Barfield MD Status: ADM IN - Discharge Diagnoses Current Active Problems: Current Active and Chronic Problems Diverticulitis large intestine (Acute) Diverticulitis (Acute) Anxiety and depression (Chronic) Chronic back pain (Chronic) You will use the following diet at home:: Regular Your food should be the consistency of: Regular Discharge Activity: May not drive while taking narcotic pain medications. Allergies/Adverse Reactions: Allergies venom-honey bee [bee venom (honey bee)] Allergy (Verified 07/25/18 11:50) Unknown morphine Adverse Reaction (Verified 07/25/18 11:50) Nausea zolpidem [From Ambien] Adverse Reaction (Verified 07/28/18 22:16) Other sleep walking, hallucinations Medications to take at Discharge ALPRAZolam [Xanax] 0.5 mg PO BID 05/15/14 Diltiazem CD [Cardizem CD] 180 mg PO DAILY 05/15/14 Duloxetine Hcl [Cymbalta] 60 mg PO BID 05/15/14 Gabapentin [Neurontin] 900 mg PO BIDCM 05/15/14 Topiramate [Topamax] 400 mg PO BID 05/15/14 proMETHazine tablet [Phenergan tablet] 25 mg PO Q6H PRN PRN #10 tablet 05/15/14 Colestipol Tablet [Colestid Tablet] 3 tab PO DAILY 07/25/18 Fluticasone 0.05% [Flonase Nasal [place]] 2 spray NASAL DAILY 07/25/18 Sumatriptan Succinate [Imitrex] 100 mg PO X1 PRN 07/25/18 Ciprofloxacin [Cipro] 500 mg PO BID #10 tablet 07/29/18 Metronidazole [Flagyl] 500 mg PO Q8H #15 tablet 07/29/18 Oxycodone [Oxyir] 5 mg PO Q4H PRN PRN 3 Days #14 tablet 07/29/18 The following prescriptions were given: Ciprofloxacin [Cipro] 500 mg PO BID #10 tablet Metronidazole [Flagyl] 500 mg PO Q8H #15 tablet Oxycodone [Oxyir] 5 mg PO Q4H PRN PRN 3 Days #14 tablet PRN Reason: Pain Primary Care Physician: Akin Barfield MD [Primary Care Provider] - Please follow up with your Primary Care Physician in: in 5- 7 days Test Results: Test results from this visit will be discussed in further detail at your follow-up appointment, if applicable. Please Follow Up With: Jayjay Field MD When: for outpatient Colonoscopy Proposed Discharge Date: 07/29/18 07/29/18 0833 <Electronically signed by Dominic Cox MD> Date Dominic Cox MD CC: Jayjay Field MD; Akin Barfield MD CONSULTATION Observed: 07/29/2018 Status: F Source: [facility] 7:41 AM [facility] REPOSITORY [facility] Medical Records Department [address] [place] [address] Consultation 07/27/18933 MR#: [id number] Acct: [id number] Name: SAULO GEIGER I Rep #: [id number] : 1960 58 From: Jayjay Field MD PCP: Akin Barfield MD Status: ADM IN Y Location: [place]3 NG410-0 Problem List (1) Diverticulitis large intestine Status: Acute Qualifiers: Diverticulitis bleeding: without bleeding Diverticulitis complication: without perforation or abscess Qualified Code(s): K57.32 - Diverticulitis of large intestine without perforation or abscess without bleeding Reason for Consult Date of Consultation: 07/27/18 History of Present Illness: The patient is a 58 year old F past medical history of anxiety/depression, chronic back pain/pain syndrome who comes in with complaints of right-sided abdominal pain started more than a week ago. She was unable to lie on the right side to sleep. Denied any associated fever or chills or nausea or vomiting. She has a history of laparoscopic cholecystectomy and has since had chronic diarrhea. Pain is severe and unbearable. She has history of colon colonoscopy done 3 years ago in the [facility] system and a polyp was removed and she is due to have another colonoscopy this July. CAT scan was completed which showed diverticulitis of the ascending colon. The appendix was retrocecal and appears to be spared and there is air with in it. There is some significant amount of streaky fat in the right upper quadrant. There was no signs of any free air. Her abdominal pain has slightly improved in the 24 hours since she has been admitted that she still is requiring IV narcotics. In addition she has had a very small bowel movement but has not been passing any flatus. It is still quite uncomfortable for her to sit up and move or take in deep breaths. Past Medical History Past Medical History (Chronic Problems): Chronic Problems Hypertension (Chronic) Migraine headache (Chronic) Anxiety and depression (Chronic) Chronic back pain (Chronic) Allergies venom-honey bee [bee venom (honey bee)] Allergy (Verified 07/25/18 11:50) Unknown morphine Adverse Reaction (Verified 07/25/18 11:50) Nausea Home Medications: Ambulatory Orders Medication Instructions Recorded ALPRAZolam [Xanax] 0.5 mg PO BID 05/15/14 Diltiazem CD [Cardizem CD] 180 mg PO DAILY 05/15/14 Duloxetine Hcl [Cymbalta] 60 mg PO BID 05/15/14 Surgical History: cholecystectomy, - - colonoscopy Psychiatric History: Anxiety, Depression 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 History: No pertinent 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 history Lives: Spouse/ Significant Other Smoking Status: Former smoker Tobacco Use: Non-smoker Alcohol: None Drugs: None - *Family History Maternal History Items: - - Brain aneurysm Paternal History Items: Heart Disease Review of Systems Constitutional: Denies: Chills, Fever, Weight Change Cardiovascular: Denies: Chest Pain, Chest Pressure, Chest Tightness, Palpitations Respiratory: Denies: Cough, Hemoptysis, Shortness of breath at rest, Shortness of breath upon exertion, Wheezing Gastrointestinal: Reports: Diarrhea - Patient has had chronic diarrhea ever since having her gallbladder removed., - - Patient is due for another colonoscopy given polyp removal 3 years ago. She was told that she will have to do it outside of [facility] and under a general anesthetic. Endocrine: Denies: Heat/ Cold Intolerance, Polydipsia, Polyuria Hematologic/ Lymphatic: Denies: Adenopathy, Easy Bruising Patient Problems: Active and Suspected Problems Diverticulitis large intestine (Acute) Diverticulitis (Acute) - Physical Exam General: Alert, Oriented x3 Neck: Supple, No JVD Lungs: Clear to auscultation Cardiovascular: Regular rate, Regular Rhythm, No murmurs Abdomen: Bowel Sounds Present, Soft, Non-Distended, Hypoactive Bowel Sounds, Tender - She has no rebound or rigidity. I believe her tenderness is appropriate given the CAT scan findings. Vital Signs Temp Pulse Resp BP Pulse Ox 97.7 F L 59 L 16 124/78 H 100 07/27/18 08:49 07/27/18 08:49 07/27/18 08:49 07/27/18 08:49 07/27/18 08:49 Oxygen Delivery Method Room Air Weight: 162 lb 0.636 oz Body Mass Index (BMI) 26.1 Intake and Output for Last 24 Hours Intake Total 2369 / 2369 1661 / 1661 Balance 2369 / 2369 1661 / 1661 Laboratory Tests Past 24 Hrs Assessment/Plan All Active Problems Diverticulitis large intestine (Acute) Diverticulitis (Acute) Hopefully we will noticing continual improvement in the patient's physical exam while she is on her IV antibiotics. I believe it is okay if she would like to have some sips of liquid but no solid foods and no full liquids at this time. I have discussed with her that there is a slight chance that she may not get better he may require to have a surgery in which case she would more than likely need to have a right hemicolectomy. I am hopeful though that we will noticed that she improved in her physical exam given the fact that she is not tachycardic and she does not have an elevation in her temperature nor an elevation in her white count as of yet. The ultimate goal will be able to be discharging her home on oral antibiotics and then doing a repeat colonoscopy on her sometime in mid August. 07/29/18 0741 <Electronically signed by Jayjay Field MD> Date Jayjay Field MD Cosigner Signature (if applicable): Date CC: Jayjay Field MD; Akin Barfield MD Signed LIVER PROFILE Collected: 07/28/2018 Status: F Source: RHOME 5:50 AM [facility] REPOSITORY TYPE CODE TESTS RESULT OUT OF RANGE REFERENCE UNITS LAB L501.1500 6.4-8.2 g/dL Low T PROT 5.9 LAB L501.1800 3.2-5.0 g/dL Low ALB 2.8 LAB L501.1950 2.2-4.2 g/dL Normal GLOB 3.1 LAB L501.4100 15-37 U/L High AST 79 LAB L501.4305 45-117 U/L High ALK P 282 LAB L501.4405 13-56 U/L High ALT 169 LAB L501.4600 0.20-1.00 mg/dL Normal T BILI 0.40 LAB L501.4700 0.00-0.30 mg/dL Normal D BILI 0.18 Performed By: #### L500.3400 #### [facility] [address] [place], [address] CBC W/DIFF, AUTOMATED Collected: 07/27/2018 Status: F Source: [place] 8:30 AM [facility] REPOSITORY TYPE CODE TESTS RESULT OUT OF RANGE REFERENCE UNITS LAB L100.1000 4.4-11.0 K/mm3 Low WBC 4.2 LAB L100.1200 4.2-5.4 M/mm3 Low RBC 3.74 LAB L100.1300 12.0-15.0 g/dl Normal HGB 12.4 LAB L100.1400 37-47 % Normal HCT 38.2 LAB L100.1500 81-99 fL High MCV 102.1 LAB L100.1600 27.0-32.0 pg High MCH 33.2 LAB L100.1700 32-36 g/gl Normal MCHC 32.5 LAB L100.1810 11.6-14.6 % Normal RDW CV 12.5 LAB L100.1820 35.1-43.9 fl High RDW SD 46.1 LAB L100.1900 150-450 K/mm3 Normal PLT 178 LAB L100.2000 6.2-12.0 fl Normal MPV 9.8 LAB L100.2100 47-70 % Normal NEUT% 63.9 LAB L100.2200 19-41 % Normal LY% 26.2 LAB L100.2300 0-10 % Normal MONO% 7.3 LAB L100.2400 0-5 % Normal EO% 1.9 LAB L100.2500 0-1 % Normal BASO% 0.5 LAB L100.2550 0.0-0.9 % Normal IM GRAN % 0.200 Result Comment: IG% - Immature Granulocytes (promyelocytes, myelocytes and metamyelocytes) > 1% indicates that a LEFT SHIFT is Present. LAB L100.2620 2.0-7.7 X10 3/uL Normal Absolute Neut 2.7 LAB L100.2720 0.83-4.51 X10 3/ul Normal Absolute Lymph 1.11 Performed By: #### L100.0100 #### [facility] [address] [place], [place], [address] COMPREHENSIVE METABOLIC Collected: 07/27/2018 Status: F [facility] REPOSITORY TYPE CODE TESTS RESULT OUT OF RANGE REFERENCE UNITS LAB L501.0100 74-106 mg/dL Normal GLU 74 Result Comment: Please note revised GLUCOSE reference range effective 2017. LAB L501.1000 7-18 mg/dL Normal BUN 8 LAB L501.1100 0.55-1.02 mg/dL Normal CREAT,SERUM 0.84 Result Comment: The validity of the calculated GFR AND GFRAA in patients over 70 years has not been determined. Clinical correlation is essential. LAB L501.1110 >60 mL/min Normal EST GFR 75 Result Comment: Non- GFR Calc LAB L501.1115 >60 mL/min Normal EST GFR - AA 90 Result Comment: GFR Calc LAB L501.1255 ml/min Normal Estimated CRCL 70.01 LAB L501.1300 10-20 RATIO Low BUN/CRE 9.5 LAB L501.1500 6.4-8. g/dL Low 2 T PROT 6.3 LAB L501.1800 3.2-5. g/dL Low 0 ALB 2.9 LAB L501.1950 2.2-4. g/dL Normal 2 GLOB 3.4 LAB L501.2000 0.9-2. RATIO Normal 4 A/G 0.9 LAB L501.2200 8.5-10 mg/dL Low .1 CA 8.2 LAB L501.4100 15-37 U/L High AST 195 LAB L501.4305 45-117 U/L High ALK P 344 LAB L501.4405 13-56 U/L High ALT 253 LAB L501.4600 0.20-1 mg/dL Normal .00 T BILI 0.60 LAB L501.5300 136-14 mmol/L Normal 5 NA 145 LAB L501.5600 3.5-5. mmol/L Normal 1 K 3.9 LAB L501.5900 98-107 mmol/L High CL 115 LAB L501.6100 21.0-3 mmol/L Low 2.0 CO2 19.0 LAB L501.6200 5-15 Normal GAP 11 Performed By: #### L500.4050 #### [facility] [address] [place], [address] BILIRUBIN, DIRECT Collected: 07/27/2018 Status: F Source: [facility] 8:30 AM [facility] REPOSITORY Order Comment: Comments: from blood in lab. TYPE CODE TESTS RESULT OUT OF RANGE REFERENCE UNITS LAB L501.4700 0.00-0.30 mg/dL Normal D BILI 0.25 Performed By: #### L501.4700 #### [facility] [address] [place], [address] LIVER Observed: 07/26/2018 Status: F Source: [facility] 2:17 PM [facility] REPOSITORY [facility] Imaging Services [address] [place] [address] Liver MR#: [id number] Acct: [id number] Name: SAULO GEIGER I Rep #: [id number] : 1960 F 58 From: Isabell Harden MD PCP: Akin Barfield MD Status: ADM IN Study: Liver Date of Exam: 07/26/18 Exam# [id number] Ordering Dr: Benton Cruz MD ADDENDUM by ISABELL HARDEN MD on 07/26/18 at 2035 ADDENDUM ADDENDUM: The gallbladder section of the findings is amended. Gallbladder: The patient has had prior cholecystectomy. Electronically Signed: Isabell Harden MD at 20:36 EST Tel Direct: [phone], Service support , 07/26/182035 Date cc: Benton Cruz; Akin Barfield MD * Signed ADDENDUM by ISABELL HARDEN MD on 07/26/18 at 2035 US/Liver 07/26/182042 Date cc: Benton Cruz; Akin Barfield MD * Signed STUDY: ABDOMINAL ULTRASOUND - RIGHT UPPER QUADRANT REASON FOR VISIT: Female, 58 years old. Elevated liver function tests TECHNIQUE: Transverse and longitudinal imaging of the right upper quadrant was performed using real-time ultrasound. COMPARISON: CT abdomen and pelvis dated July 25, 2018 FINDINGS: Liver: The liver measures at least 16 cm. There is increased echogenicity of the liver. The direction of portal flow is hepatopetal. There is no demonstrated mass in the liver. Gallbladder: The patient has had prior cholecystectomy. The gallbladder wall measures mm. There is a negative sonographic Dowd's sign. There is no demonstrated pericholecystic fluid. There are no abnormalities in the lumen of the gallbladder. Common Bile Duct (C.B.D.): The common bile duct measures 9-10 mm. Pancreas: The visualized pancreas is within normal limits. There is no demonstrated mass in the pancreas. Right Kidney: The right kidney measures 10.1 cm. The right cortex measures 1.2 cm. There is no demonstrated mass in the right kidney. There is no dilatation of the collecting system. There is no demonstrated free fluid. US/Liver IMPRESSION: The liver is increased in echogenicity which can be seen with fatty infiltration. No masses are seen in the liver. The common bile duct measures 9-10 mm in diameter which is not unexpected after cholecystectomy. Electronically Signed: Isabell Harden MD at 20:29 EST Tel Direct: [phone], Service support , CC: Benton Cruz; Akin Barfield MD Public Transportation Inspector: Signed LIVER PROFILE Collected: 07/26/2018 Status: F Source: [facility] 11:10 AM [facility] REPOSITORY Order Comment: Comments: from blood in lab. TYPE CODE TESTS RESULT OUT OF RANGE REFERENCE UNITS LAB L501.1500 6.4-8.2 g/dL Low T PROT 6.0 LAB L501.1800 3.2-5.0 g/dL Low ALB 2.8 LAB L501.1950 2.2-4.2 g/dL Normal GLOB 3.2 LAB L501.4100 15-37 U/L High AST 510 LAB L501.4305 45-117 U/L High ALK P 346 LAB L501.4405 13-56 U/L High ALT 325 LAB L501.4600 0.20-1.00 mg/dL High T BILI 1.90 LAB L501.4700 0.00-0.30 mg/dL High D BILI 1.29 Performed By: #### L500.3400 #### [facility] [address] [place], [address] CBC W/DIFF, AUTOMATED Collected: 07/26/2018 Status: F Source: RHOME 5:50 AM [facility] REPOSITORY TYPE CODE TESTS RESULT OUT OF RANGE REFERENCE UNITS LAB L100.1000 4.4-11.0 K/mm3 Normal WBC 4.6 LAB L100.1200 4.2-5.4 M/mm3 Low RBC 4.01 LAB L100.1300 12.0-15.0 g/dl Normal HGB 13.3 LAB L100.1400 37-47 % Normal HCT 42.2 LAB L100.1500 81-99 fL High MCV 105.2 LAB L100.1600 27.0-32.0 pg High MCH 33.2 LAB L100.1700 32-36 g/gl Low MCHC 31.5 LAB L100.1810 11.6-14.6 % Normal RDW CV 13.2 LAB L100.1820 35.1-43.9 fl High RDW SD 50.4 LAB L100.1900 150-450 K/mm3 Normal PLT 154 LAB L100.2000 6.2-12.0 fl Normal MPV 10.3 LAB L100.2100 47-70 % Normal NEUT% 66.3 LAB L100.2200 19-41 % Normal LY% 23.6 LAB L100.2300 0-10 % Normal MONO% 8.8 LAB L100.2400 0-5 % Normal EO% 0.9 LAB L100.2500 0-1 % Normal BASO% 0.2 LAB L100.2550 0.0-0.9 % Normal IM GRAN % 0.200 Result Comment: IG% - Immature Granulocytes (promyelocytes, myelocytes and metamyelocytes) > 1% indicates that a LEFT SHIFT is Present. LAB L100.2620 2.0-7.7 X10 3/uL Normal Absolute Neut 3.0 LAB L100.2720 0.83-4.51 X10 3/ul Normal Absolute Lymph 1.08 LAB L100.4500 Normal SMEAR COMMENT SCAN LAB L100.5650 Normal PLT MORPH LARGE Performed By: #### L100.0100 #### [facility] [address] [place], [place], [address] BASIC METABOLIC Collected: 07/26/2018 Status: F Source: RHOME PROFILE (BMP) 5:50 AM [facility] REPOSITORY TYPE CODE TESTS RESULT OUT OF RANGE REFERENCE UNITS LAB L501.0100 74-106 mg/dL Normal GLU 93 Result Comment: Please note revised GLUCOSE reference range effective 2017. LAB L501.1000 7-18 mg/dL Normal BUN 10 LAB L501.1100 0.55-1.02 mg/dL Normal CREAT,SERUM 0.96 Result Comment: The validity of the calculated GFR AND GFRAA in patients over 70 years has not been determined. Clinical correlation is essential. LAB L501.1110 >60 mL/min Normal EST GFR 64 Result Comment: Non- GFR Calc LAB L501.1115 >60 mL/min Normal EST GFR - AA 77 Result Comment: GFR Calc LAB L501.1255 ml/min Normal Estimated CRCL 61.26 LAB L501.1300 10-20 RATIO Normal BUN/CRE 10.4 LAB L501.2200 8.5-10 mg/dL Low .1 CA 8.1 LAB L501.5300 136-14 mmol/L Normal 5 NA 140 LAB L501.5600 3.5-5. mmol/L Normal 1 K 4.1 LAB L501.5900 98-107 mmol/L High CL 116 LAB L501.6100 21.0-3 mmol/L Low 2.0 CO2 14.0 LAB L501.6200 5-15 Normal GAP 10 Performed By: #### L500.2500 #### [facility] [address] [place], [place], [address] EMERGENCY DEPARTMENT Observed: 07/25/2018 Status: F Source: [facility] SUMMARY 4:17 PM [facility] REPOSITORY [facility] Medical Records Department [address] [place] [address] Emergency Department Summary 07/25/18 1210 MR#: [id number] Acct: [id number] Name: SAULO GEIGER I Rep #: [id number] : 1960 58 From: Karlene Patricia MD PCP: Akin Barfield MD Status: ADM IN - ER Visit Summary Date of Service: 07/25/18 Chief Complaint: [] Right-sided abdominal pain for 1 week History of Present Illness: The patient is a 58 F [] right side abdominal pain for 1 week that is nonspecific it is been constant nothing makes it better or worse she is been able to eat she has had no fever no nausea or vomiting normal bowel bladder habits, prior history for cholecystectomy years ago and history of kidney stones or other GI ailments no other complaints no antibiotics no exposures to anyone who is been ill although she does report early June she did receive a flu vaccination since that time she is felt as if she has a constant flu Physical Examination: [] General, no distress resting comfortably HEENT is generally unremarkable The neck is supple no adenopathy Cardiovascular, regular rate and rhythm Lungs, clear bilateral Abdomen, soft, there is discomfort to the right lower abdomen there is some voluntary guarding there is no obvious mass, the rest exams unremarkable Extremities, no clubbing cyanosis or edema Neurologic, awake alert answering questions appropriately moving all 4 extremities Test Results: [] Emergency Department Course and Treatment: [] Her complaints IV fluids pain management CT scan urinalysis The lab results are generally unremarkable see those reports, the CT scan shows what appears to be right-sided colonic inflammation and diverticulitis, she is medicated with Dilaudid twice she received IV Cipro and metronidazole I discussed inpatient versus outpatient management with her she indicates the pain is still very severe despite the IV fluids the IV management she does not feels if she can be discharged home, at this time I spoke with hospitalist service to see her and determine disposition Treatment Plan: [] Disposition: [] Admit pending hospitalist evaluation Impression: [] Right side abdominal pain, right colonic inflammation and diverticulitis This note was generated with [employer] software. It may contain incorrect words, spelling, and punctuation that were not noted in review of the chart prior to signing ED Disposition - Plan for ED Patient: Chief Complaint: Abd Pain Referrals: Akin Barfield MD [Primary Care Provider] - What to do if you have Problems For any increased pain, shortness of breath, bleeding, nausea or vomiting, chest pain, or any unexpected problems, contact your Primary Care Provider. Call [facility] ([phone]) or report to the closest Emergency Room. Call 911 if necessary. 07/25/18 1617 <Electronically signed by Karlene Patricia MD> Date Karlene Patricia MD Cosigner Signature (If Indicated): Date CC: Akin Barfield MD HISTORY AND PHYSICAL Observed: 07/25/2018 Status: F Source: RHOME EXAM 3:35 PM [facility] REPOSITORY [facility] Medical Records Department [address] [place] [id number] History and Physical 07/25/18 1508 MR#: [id number] Acct: [id number] Name: SAULO GEIGER I Rep #: [id number] : 1960 58 From: Radha Cramer MD PCP: Akin Barfield MD Status: REG ER Y Location: ED Problem List (1) Diverticulitis Status: Acute (2) Anxiety and depression Status: Acute (3) Chronic back pain Status: Chronic Qualifiers: Sciatica laterality: sciatica laterality unspecified History of Present Illness Date of Admission: 07/25/18 Chief Complaint: Right sided abdominal pain ongoing for 1 week The patient is a 58 year old F past medical history of anxiety/depression, chronic back pain/pain syndrome who comes in with complaints of right-sided abdominal pain started more than a week ago. She was unable to lie on the right side to sleep. Denied any associated fever or chills or nausea or vomiting. She has a history of laparoscopic cholecystectomy and has since had chronic diarrhea. Pain is severe and unbearable. She has history of colon colonoscopy done 3 years ago in the [facility] system and a polyp was removed and she is due to have another colonoscopy done soon but there has been pushed to the end of the year. Vitals in the ED showed temperature 97.9 F, heart rate of 103, blood pressure 137/112, respiratory rate 18, SPO2 98% on room air. Admitting blood work showed RBC count of 8.2, hemoglobin 13.8, MCV 101.2, platelet count 201, sodium 142, potassium 4.1, chloride 113, bicarb 21, BUN 18, creatinine 1.10, baseline of 0.9. CT scan of the abdomen and pelvis shows diverticulitis of the ascending colon distal to the ileocecal valve. 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 Denies: Chills, Fever, Night Sweats, Weight Change Eyes: Denies: Blurred vision, Cataracts, Conjunctivae Inflammation, Pain, Redness HEENT: Denies: Difficulty Hearing, Difficulty Swallowing, Head Aches, Hearing Changes, Sinus Congestion, Sinus Drainage Cardiovascular: Denies: Chest Pain, Claudication, Chest Pressure, Orthopnea, Palpitations, Paroxysmal Noc. Dyspnea Respiratory: Denies: Cough, Hemoptysis, Shortness of Breath, Shortness of breath at rest, Shortness of breath upon exertion, Sputum production Gastrointestinal: Denies: Abdominal Pain, Constipation, Hematemesis, Hematochezia, Nausea, Vomiting Genitourinary: Denies: Dysuria, Frequency, Incontinence Musculoskeletal: Denies: Joint Pain, Joint stiffness, Joint swelling, Joint Tenderness Skin: Denies: Rash, Wounds Neurological: Denies: Numbness, Tingling, Focal weakness Psychiatric: Denies: Anxiety, Depression, Homicidal Ideations, Suicidal Ideations Hematologic/ Lymphatic: Denies: Easy Bruising, Easy Bleeding VTE Information - Inpt Only VTE Present on Admission: No VTE Pharm Prophylaxis ordered?: Yes Patient Problems: Active and Suspected Problems Diverticulitis (Acute) Anxiety and depression (Acute) - Physical Exam General: Alert, Oriented x3, Cooperative, No apparent distress HEENT: Atraumatic, PERRLA, EOMI, Normocephalic Oral: Moist Mucosa Neck: Supple, No JVD, Negative Carotid Bruits Lungs: Clear to auscultation, Normal air movement Cardiovascular: Regular rate, Regular Rhythm, Normal S1, Normal S2, No murmurs Abdomen: Bowel Sounds Present, Soft, Non-Distended, No Hepato- splenomegaly, Tender - Right lower and flank tenderness with guarding with but no rebound tenderness Extremities: No edema Skin: No rashes, No breakdown Musculoskeletal: No Tenderness to Palpation of Joints or Extremities Lymphatic: No Cervical, Supraclavicular, or Inguinal Adenopathy Neurological: Cranial nerves II-XII grossly intact, Neuro grossly intact Psych/Mental Status: Normal Affect, Appropriate Vital Signs Temp Pulse Resp BP Pulse Ox 97.9 F 78 16 120/73 96 07/25/18 11:47 07/25/18 14:00 07/25/18 14:00 07/25/18 14:00 07/25/18 14:00 Oxygen Delivery Method Room Air Weight: 74.389 kg Body Mass Index (BMI) 27.3 Laboratory Tests Past 24 Hrs WBC 8.2 RBC 4.24 Assessment/Plan All Active Problems Diverticulitis (Acute) Anxiety and depression (Acute) 58 year old F with past medical history of anxiety/depression, chronic back pain/pain syndrome who comes in with complaints of right-sided abdominal pain started more than a week ago. 1. Right-sided abdominal pain secondary to acute diverticulitis, history of colonoscopy 2 years ago that showed one polyp, no fevers or chills, no leukocytosis Plan: Admit to [facility] floor, pain control with IV morphine as needed, oxycodone as needed, IV Cipro and Flagyl, n.p.o., bowel rest, advance diet as tolerated Labs in a.m. Patient will need colonoscopy in 6-8 weeks. 2. Anxiety/depression, on Xanax, Cymbalta, gabapentin, topiramate 3. Chronic diarrhea status post cholecystectomy, on colestipol 4. Hypertension, on Cardizem, continue same, monitor vitals closely 5. Dehydration, slight elevation in creatinine, continue on IV fluids, repeat BMP in a.m. 6. DVT PPx- Heparin SC Code Visit Inpatient E AND M: 21300 Init Hosp L3 07/25/18 1535 <Electronically signed by Radha Cramer MD> Date Radha Cramer MD Cosigner Signature: Date (if applicable) CC: Radha Cramer MD; Akin Barfield MD Signed URINALYSIS, COMPLETE Collected: 07/25/2018 Status: F Source: [place] 1:35 PM [facility] REPOSITORY Order Comment: How was Urine Obtained? CLEAN CATCH TYPE CODE TESTS RESULT OUT OF RANGE REFERENCE UNITS LAB L400.3000 Yellow COLOR Normal Yellow LAB L400.3050 Clear Normal CLARITY Clear LAB L400.3200 Normal mg/dl Normal GLUCOSE, UR Normal LAB L400.3300 Negative mg/dL Normal BILIRUBIN URINE Negative LAB L400.3400 Negative mg/dl Normal KETONE UR Negative LAB L400.3465 1.002-1.030 Normal SP.GR. DIPSTX 1.015 LAB L400.3550 5.0 - 8.0 pH UR Normal 6.5 LAB L400.3600 Negative mg/dl PROT Normal DIPSTX Negative LAB L400.3700 Normal mg/dl Normal UROBILI Normal LAB L400.3750 Negative Normal NITRITE UR Negative LAB L400.3780 Negative /ul Normal OCCULT BLOOD-UR Negative LAB L400.3800 Negative /ul LEUK Normal ESTERASE Negative LAB L400.4050 0-5 /hpf WBC 0 Normal SEEN LAB L400.4100 0-5 /hpf 0 Normal RBC-UA SEEN LAB L400.4150 5-10 /hpf SQUAM 0 Normal EPI SEEN LAB L400.4300 None Seen /hpf Normal BACTERIA RARE LAB L400.4350 <or=2+ /hpf 0 Normal MUCUS, URINE SEEN Performed By: #### L400.0001 #### [facility] [address] [place], [address] CBC W/DIFF, AUTOMATED Collected: 07/25/2018 Status: F Source: RHOME 12:25 PM [facility] REPOSITORY TYPE CODE TESTS RESULT OUT OF RANGE REFERENCE UNITS LAB L100.1000 4.4-11.0 K/mm3 Normal WBC 8.2 LAB L100.1200 4.2-5.4 M/mm3 Normal RBC 4.24 LAB L100.1300 12.0-15.0 g/dl Normal HGB 13.8 LAB L100.1400 37-47 % Normal HCT 42.9 LAB L100.1500 81-99 fL High MCV 101.2 LAB L100.1600 27.0-32.0 pg High MCH 32.5 LAB L100.1700 32-36 g/gl Normal MCHC 32.2 LAB L100.1810 11.6-14.6 % Normal RDW CV 13.0 LAB L100.1820 35.1-43.9 fl High RDW SD 47.4 LAB L100.1900 150-450 K/mm3 Normal PLT 201 LAB L100.2000 6.2-12.0 fl Normal MPV 10.0 LAB L100.2100 47-70 % High NEUT% 77.0 LAB L100.2200 19-41 % Low LY% 15.5 LAB L100.2300 0-10 % Normal MONO% 6.6 LAB L100.2400 0-5 % Normal EO% 0.6 LAB L100.2500 0-1 % Normal BASO% 0.2 LAB L100.2550 0.0-0.9 % Normal IM GRAN % 0.100 Result Comment: IG% - Immature Granulocytes (promyelocytes, myelocytes and metamyelocytes) > 1% indicates that a LEFT SHIFT is Present. LAB L100.2620 2.0-7.7 X10 3/uL Normal Absolute Neut 6.3 LAB L100.2720 0.83-4.51 X10 3/ul Normal Absolute Lymph 1.27 Performed By: #### L100.0100 #### [facility] [address] [place], [address] BASIC METABOLIC Collected: 07/25/2018 Status: F Source: RHOME PROFILE (BMP) 12:25 PM [facility] REPOSITORY TYPE CODE TESTS RESULT OUT OF RANGE REFERENCE UNITS LAB L501.0100 74-106 mg/dL Normal GLU 103 Result Comment: Fasting Glucose result from 100 to 125 mg/dL suggests IMPAIRED HOMEOSTASIS per A.D.A. criteria. Please note revised GLUCOSE reference range effective 2017. LAB L501.1000 7-18 mg/dL Normal BUN 18 LAB L501.1100 0.55-1.02 mg/dL High CREAT,SERUM 1.10 Result Comment: The validity of the calculated GFR AND GFRAA in patients over 70 years has not been determined. Clinical correlation is essential. LAB L501.1110 >60 mL/min Low EST GFR 55 Result Comment: Non- GFR Calc LAB L501.1115 >60 mL/min Normal EST GFR - AA 66 Result Comment: GFR Calc LAB L501.1255 ml/min Normal Estimated CRCL 51.39 LAB L501.1300 10-20 RATIO Normal BUN/CRE 16.4 LAB L501.2200 8.5-10 mg/dL Normal .1 CA 8.5 LAB L501.5300 136-14 mmol/L Normal 5 NA 142 LAB L501.5600 3.5-5. mmol/L Normal 1 K 4.1 Result Comment: Slight Hemolysis, Result may be falsely increased. LAB L501.5900 98-107 mmol/L High CL 113 LAB L501.6100 21.0-32.0 mmol/L Normal CO2 21.0 LAB L501.6200 5-15 Normal 8 GAP Performed By: #### L500.2500, L501.2450 #### [facility] [address] [place], [address] LIPASE Collected: 07/25/2018 Status: F Source: RHOME 12:25 PM [facility] REPOSITORY TYPE CODE TESTS RESULT OUT OF RANGE REFERENCE UNITS LAB L501.2450 73-393 U/L Normal LIPASE 134 Performed By: #### L500.2500, L501.2450 #### [facility] [address] [place], [address] ABDOMEN/PELVIS WITHOUT Observed: 07/25/2018 Status: F Source: [place] CONT 12:10 PM [facility] REPOSITORY [facility] Imaging Services [address] [place] [address] Abdomen/Pelvis without Cont MR#: [id number] Acct: [id number] Name: SAULO GEIGER I Rep #: [id number] : 1960 F 58 From: Will Arango MD PCP: Akin Barfield MD Status: ADM IN Study: Abdomen/Pelvis without Cont Date of Exam: 07/25/18 Exam# [id number] Ordering Dr: Karlene Patricia MD ADDENDUM by ISABELL HARDEN MD on 07/26/18 at 2034 ADDENDUM ADDENDUM: As mentioned in the initial report, the appendix is normal. There is no appendicitis. There is an error in the initial report, and the acute diverticulitis is present in the mid to distal ascending colon. This is often a voice recognition error. There is no bowel obstruction, ascites, free air or abscess formation. There is fatty infiltration of the liver. Electronically Signed: Isabell Harden MD at 20:35 EST Tel Direct: [phone], Service support , 07/26/182034 Date cc: MD Jessica Patricia; Akin Barfield MD * Signed ADDENDUM by ISABELL HARDEN MD on 07/26/[address]/Abdomen/Pelvis without Cont 07/26/182041 Date cc: MD Jessica Patricia; Akin Barfield MD * Signed STUDY: CT ABDOMEN AND PELVIS WITHOUT CONTRAST REASON FOR EXAM: Female, 58 years old. Worsening right lower abdominal pain. RADIATION DOSAGE (If Supplied By Facility): CTDIvol = ( 7.62 ) mGy, DLP = ( 386.46 ) mGycm TECHNIQUE: Transaxial images were obtained from the dome of the diaphragm to the symphysis pubis without oral contrast, and without intravenous contrast. Sagittal and coronal images were reconstructed. Individualized dose optimization techniques were used for this CT. COMPARISON: None. FINDINGS: Minimal degree of increased markings at the lung bases suggestive of either mild scarring and/or linear atelectasis. The visualized portions of the heart are within normal limits. Normal liver. The patient is status post cholecystectomy. Normal spleen. Normal pancreas. Normal bilateral adrenal glands. Normal right kidney. Normal left kidney. There is a small hiatal hernia. Normal small intestine. Increased markings are seen within the mesenteric fat surrounding the descending colon distal to the ilio cecal valve. There is evidence of scattered diverticula in the ascending colon. This is suggestive of diverticulitis of the descending colon. No focal fluid collection or abscess is seen. Sigmoid diverticulosis. There is evidence of a retrocecal appendix. This is normal. There is diffuse atherosclerotic calcification of the abdominal aorta, without a demonstrated aneurysm. Normal inferior vena cava. Normal retroperitoneum. Normal urinary bladder. There is a small umbilical hernia containing fat. Normal osseous structures. CT/Abdomen/Pelvis without Cont IMPRESSION: Findings in keeping with diverticulitis affecting the descending colon as described. Normal appearance of the retrocecal appendix. Electronically Signed: Will Arango MD at 13:15 EST Tel [phone], Service support , CC: MD Jessica Patricia; Akin Barfield MD Public Transportation Inspector: Signed CNPN Observed: 06/13/2018 Status: COMPLETED Source: [place] 12:[address] [facility] REPOSITORY Telephone (ASWSTR) JUANJOSAULO Blanton ([id number]) 1960 F NFR Date Time Provider Department 06/13/18 AKIN BARFIELD ASWSTR During your visit today, we recorded the following information about you: Alexa Singer RN, RN 06/13/2018 1:39 PM Addendum Pt due for 3 yr follow up colonoscopy. Pt has h/o polyps and previous EGD's . Pt needs office visit prior due to past GI issues. Please call pt and schedule with Jeannie Lundberg after July 11. BERNARDO Kramer Psr 06/19/2018 9:24 AM Signed 1st failed attempt to reach patient. No VM.Ellie Shaffer Psr Alexa Singer RN, RN 07/18/2018 1:58 PM Signed Please attempt to call patient again. Thank you, BERNARDO Kramer Psr 07/19/2018 2:34 PM Signed Spoke to patient who is declining appointment at this time. Patient states she will call when she is able to have the time to come in for consultation. Alexa Singer RN, RN 07/22/2018 1:50 PM Signed Patient has an appt 11/[address] Barfield. Appt note edited to discuss colorectal screening. Alexa Singer RN Allergies As of Date: 06/13/2018 Noted Allergy Reaction bee stings [Other] 05/16/2005 MORPHINE 04/03/2017 11 - Vomiting RELAFEN (NABUMETONE) 11/26/2008 6 - Diarrhea Comments: 2004 tried med Date Reviewed: 05/29/2018 Reviewed by: González Nieves - Fully Assessed Reason for Visit: Outpatient Colonoscopy [482] previous EGD's [Other] Prescriptions as of 06/13/2018 Sig: COLESTIPOL 1 GRAM TABLET take 2 tablets by mouth twice* PROMETHAZINE 25 MG TABLET Take 0.5-1 tablets by mouth e* GABAPENTIN 300 MG CAPSULE Take 3 pills in the morning a* BUDESONIDE DR - ER 3 MG CAPSU* Take 3 capsules by mouth once* X SUMATRIPTAN 100 MG TABLET Take at onset of migraine. Ma* X DILTIAZEM SR 180 MG 24 HR CAP Take 1 capsule by mouth once * X TOPIRAMATE 100 MG TABLET TAKE 2 TABLETS TWICE A DAY IN* FLUTICASONE 50 MCG/ACTUATION * Use 2 Sprays in each nostril * HYDROCODONE 5 MG-ACETAMINOPHE* Take 1 tablet by mouth every * DULOXETINE 60 MG CAPSULE,RAUL* Take 1 capsule by mouth twice* ALPRAZOLAM 0.5 MG TABLET Take 1 tablet by mouth twice * CPSDPORM-KKH-KSHZK ACID 0.4 M* Take 1 tablet by mouth once d* * EPINEPHRINE 0.3 MG/0.3 ML INJ* Inject 0.3 ml subcutaneously * Problem List As Of Date 06/13/2018 Noted Resolved CONCUSSION W/O COMA [S06.0X0A] SPRAIN OF NECK [S13.9XXA] SPRAIN THORACIC REGION [S23.9XXA] Migraine variant [G43.809] More... SKIN SENSATION DISTURB [R20.9] ESOPHAGEAL REFLUX [K21.9] Displacement of intervertebral disc of thoracol*INVALID FOR* Bee sting allergy [T63.91XA] INVALID FOR* SPRAIN LUMBOSACRAL [S33.5XXA] INVALID FOR* Painful respiration [R07.1] INVALID FOR*08/21/2013 Bruxism (teeth grinding) [F45.8] INVALID FOR* Lumbago [M54.5] INVALID FOR* Cervicalgia [M54.2] INVALID FOR* More... DDD (degenerative disc disease), lumbar [M51.36]INVALID FOR* More... Lumbar spondylosis [M47.816] INVALID FOR* Chronic back pain [M54.9, G89.29] INVALID FOR* Hypercholesteremia [E78.00] More... Bright red rectal bleeding [K62.5] INVALID FOR*07/29/2015 Nausea [R11.0] INVALID FOR*07/29/2015 Non-cardiac chest pain [R07.89] INVALID FOR* More... Displacement of cervical intervertebral disc wi*INVALID FOR* Encounter Status:Closed by CARIE FRANKS on 07/19/18 PROGRESS Observed: 05/29/2018 Status: COMPLETED Source: [place] 11:07 AM [facility] [place] [facility] REPOSITORY HNO ID: [id number] Author: Akin Barfield Service: (none) Author Type: Physician Type: Progress Notes Filed: 06/10/2018 12:17 AM Note Text: Patient presents with: 6 mo f/up SUBJECTIVE: Saulo Geiger is a 57 year old year old lady here today for 6 month follow up appointment for review of medical conditions. Fell about 2 weeks ago. Flip flop folded under and made toes go down too and she went down when got off couch. Ankle still swollen. Right calf got bruised too. Toes still bruised looking. Ankle can shoot up leg sometimes Also noted that has red spots on upper part of lower legs mostly but also part of lower part of legs too. Imodium--took 3 because of diarrhea illness . Had feeling heart was squeezing. Took her night meds and went to bed. Had 2 prior episodes and was evaluated in the ER. SC was ruled out. Stopped after about 9:15. PAST MEDICAL HISTORY Diagnosis Date - Bee sting allergy 04/28/2008 - Concussion with no loss of consciousness - Displacement of intervertebral disc, site unspecified, without myelopathy 11/30/2006 [facility] claim - Disturbance of skin sensation - Esophageal reflux - Hypercholesteremia - Mental disorder anxiety - Multiple rib fractures 2012 Fell down stairs to basement-- 5th and 6th rib fractures and left great toe fracture - Snoring - Sprain of lumbosacral (joint) (ligament) - Sprain of neck [facility] claim - Sprain of thoracic region [facility] claim - Tubular adenoma of colon 07/29/15 Dr. Baggott - Variants of migraine, not elsewhere classified, without mention of intractable migraine without mention of status migrainosus Current Outpatient Prescriptions: promethazine (PHENERGAN) 25 mg tablet Take 0.5-1 tablets by mouth every 6 hours as needed. gabapentin (NEURONTIN) 300 mg capsule Take 3 pills in the morning and 3 pills at bedtime. budesonide, enteric coated (ENTOCORT EC) 3 mg 24 hr capsule Take 3 capsules by mouth once daily. colestipol (COLESTID) 1 gram tablet Take 2 tablets by mouth twice daily. SUMAtriptan (IMITREX) 100 mg tablet Take at onset of migraine. May repeat once after 2 hours if needed. No more than 2 pills in a 24 hour period. diltiazem CD (CARTIA XT) 180 mg 24 hr capsule Take 1 capsule by mouth once daily. topiramate (TOPAMAX) 100 mg tablet TAKE 2 TABLETS TWICE A DAY IN THE MORNING AND AT BEDTIME fluticasone (FLONASE) 50 mcg/actuation nasal spray Use 2 Sprays in each nostril once daily. Rinse mouth after use. omeprazole (PRILOSEC) 20 mg capsule Take 1 capsule by mouth daily before breakfast. 1/2 hr before meal. HYDROcodone-acetaminophen (NORCO) 5-325 mg per tablet Take 1 tablet by mouth every 4 hours as needed. DULoxetine (CYMBALTA) 60 mg capsule Take 1 capsule by mouth twice daily. (Dr. Herrera) ALPRAZolam (XANAX) 0.5 mg tablet Take 1 tablet by mouth twice daily as needed. (Dr. Herrera) MV with Hok-Xkkiaozf-Ydwemw (CENTRUM SILVER) 0.4-300-250 mg-mcg-mcg tab Take 1 tablet by mouth once daily. EPINEPHrine 0.3 mg/0.3 mL PnIj Inject 0.3 ml subcutaneously as needed for bee sting No current facility-administered medications for this visit. OBJECTIVE: BP 120/82 (BP Site: Right Arm, BP Position: Sitting, BP Cuff Size: Regular Adult) Pulse 84 Resp 12 Wt 72.6 kg (160 lb) LMP 10/18/2006 BMI 25.82 kg/m? Patient is alert, oriented times 3, no apparent distress, affect is bright, reactive. Last 5 Encounter BP Readings: Date: BP: 05/29/2018 120/82 03/08/2018 131/82 11/20/2017 108/72 07/23/2017 116/80 05/21/2017 138/88 Last 5 Encounter Wt Readings: Date: Wt: 05/29/2018 72.6 kg (160 lb) 03/08/2018 73 kg (161 lb) 11/20/2017 74.8 kg (165 lb) 07/23/2017 73.9 kg (163 lb) 05/21/2017 73 kg (161 lb) Heart: Regular rate, rhythm, no murmurs, gallops, rubs. Lungs: Clear to auscultation, bilaterally, breathing non labored. Ext: No cyanosis, clubbing, or edema aside from left ankle with swelling on lateral part; foot slightly swollen compared to right. Middle toes with purple bruising but no deformity. Able to move ankle and toes normally. ASSESSMENT AND PLAN: Encounter Diagnosis ICD-10-CM 1. Contusion of left foot, sequela S90.32XS 2. Sprain of left ankle, unspecified ligament, sequela S93.402S 3. Cervicalgia M54.2 4. DDD (degenerative disc disease), lumbar M51.36 5. Migraine variant G43.809 Above issues addressed with patient. Patient involved in shared decision making for management of medical issues. History and medications reviewed. Epic updated as needed Refills taken care of and meds adjusted as indicated after reviewed history, exam and labs. Health Maintenance reviewed. Updated record and/or ordered tests as recorded. Encouraged on efforts at healthy diet and regular exercise and adequate sleep. Chronic pain issues stable on current meds. PDMP website checked and validated. All prescriptions have been APPROPRIATELY filled. No suspicious activity was identified. 05/29/2018 by Akin Barfield MD Has refills on gabapentin. For chronic neck and back pains as well as migraines. Continue present management. Continue present meds. Will refer to ortho or PT as indicated if left ankle and leg pain not continuing to resolve. Would be more careful when getting up from chair while wearing flip flops, especially if legs happen to be asleep again. The majority of the visit was spent counseling and/or coordinating care for the patient. [id number]-[id number] time was at least 20 minutes. Akin Barfield MD CNOV Observed: 05/29/2018 Status: COMPLETED Source: [place] 9:40 AM [facility] Office Visit (INTMWS) SAULO GEIGER I ([id number]) 1960 F NFR Date Time Provider Department 05/29/18 9:40 AM AKIN BARFIELD INTMWS During your visit today, we recorded the following information about you: Pulse Respiration Blood pressure Weight 84/minute 12/minute 120/82 72.6 kg Akin Barfield MD 06/10/2018 12:17 AM Signed Patient presents with: 6 mo f/up SUBJECTIVE: Saulo Geiger is a 57 year old year old lady here today for 6 month follow up appointment for review of medical conditions. Fell about 2 weeks ago. Flip flop folded under and made toes go down too and she went down when got off couch. Ankle still swollen. Right calf got bruised too. Toes still bruised looking. Ankle can shoot up leg sometimes Also noted that has red spots on upper part of lower legs mostly but also part of lower part of legs too. Imodium--took 3 because of diarrhea illness . Had feeling heart was squeezing. Took her night meds and went to bed. Had 2 prior episodes and was evaluated in the ER. SC was ruled out. Stopped after about 9:15. PAST MEDICAL HISTORY Diagnosis Date - Bee sting allergy 04/28/2008 - Concussion with no loss of consciousness - Displacement of intervertebral disc, site unspecified, without myelopathy 11/30/2006 [facility] claim - Disturbance of skin sensation - Esophageal reflux - Hypercholesteremia - Mental disorder anxiety - Multiple rib fractures 2012 Fell down stairs to basement-- 5th and 6th rib fractures and left great toe fracture - Snoring - Sprain of lumbosacral (joint) (ligament) - Sprain of neck [facility] claim - Sprain of thoracic region [facility] claim - Tubular adenoma of colon 07/29/15 Dr. Caban - Variants of migraine, not elsewhere classified, without mention of intractable migraine without mention of status migrainosus Current Outpatient Prescriptions: promethazine (PHENERGAN) 25 mg tablet Take 0.5-1 tablets by mouth every 6 hours as needed. gabapentin (NEURONTIN) 300 mg capsule Take 3 pills in the morning and 3 pills at bedtime. budesonide, enteric coated (ENTOCORT EC) 3 mg 24 hr capsule Take 3 capsules by mouth once daily. colestipol (COLESTID) 1 gram tablet Take 2 tablets by mouth twice daily. SUMAtriptan (IMITREX) 100 mg tablet Take at onset of migraine. May repeat once after 2 hours if needed. No more than 2 pills in a 24 hour period. diltiazem CD (CARTIA XT) 180 mg 24 hr capsule Take 1 capsule by mouth once daily. topiramate (TOPAMAX) 100 mg tablet TAKE 2 TABLETS TWICE A DAY IN THE MORNING AND AT BEDTIME fluticasone (FLONASE) 50 mcg/actuation nasal spray Use 2 Sprays in each nostril once daily. Rinse mouth after use. omeprazole (PRILOSEC) 20 mg capsule Take 1 capsule by mouth daily before breakfast. 1/2 hr before meal. HYDROcodone-acetaminophen (NORCO) 5-325 mg per tablet Take 1 tablet by mouth every 4 hours as needed. DULoxetine (CYMBALTA) 60 mg capsule Take 1 capsule by mouth twice daily. (Dr. Herrera) ALPRAZolam (XANAX) 0.5 mg tablet Take 1 tablet by mouth twice daily as needed. (Dr. Herrera) MV with Kpx-Oytakaxy-Ikipnl (CENTRUM SILVER) 0.4-300-250 mg-mcg-mcg tab Take 1 tablet by mouth once daily. EPINEPHrine 0.3 mg/0.3 mL PnIj Inject 0.3 ml subcutaneously as needed for bee sting No current facility-administered medications for this visit. OBJECTIVE: BP 120/82 (BP Site: Right Arm, BP Position: Sitting, BP Cuff Size: Regular Adult) Pulse 84 Resp 12 Wt 72.6 kg (160 lb) LMP 10/18/2006 BMI 25.82 kg/m? Patient is alert, oriented times 3, no apparent distress, affect is bright, reactive. Last 5 Encounter BP Readings: Date: BP: 05/29/2018 120/82 03/08/2018 131/82 11/20/2017 108/72 07/23/2017 116/80 05/21/2017 138/88 Last 5 Encounter Wt Readings: Date: Wt: 05/29/2018 72.6 kg (160 lb) 03/08/2018 73 kg (161 lb) 11/20/2017 74.8 kg (165 lb) 07/23/2017 73.9 kg (163 lb) 05/21/2017 73 kg (161 lb) Heart: Regular rate, rhythm, no murmurs, gallops, rubs. Lungs: Clear to auscultation, bilaterally, breathing non labored. Ext: No cyanosis, clubbing, or edema aside from left ankle with swelling on lateral part; foot slightly swollen compared to right. Middle toes with purple bruising but no deformity. Able to move ankle and toes normally. ASSESSMENT AND PLAN: Encounter Diagnosis ICD-10-CM 1. Contusion of left foot, sequela S90.32XS 2. Sprain of left ankle, unspecified ligament, sequela S93.402S 3. Cervicalgia M54.2 4. DDD (degenerative disc disease), lumbar M51.36 5. Migraine variant G43.809 Above issues addressed with patient. Patient involved in shared decision making for management of medical issues. History and medications reviewed. Epic updated as needed Refills taken care of and meds adjusted as indicated after reviewed history, exam and labs. Health Maintenance reviewed. Updated record and/or ordered tests as recorded. Encouraged on efforts at healthy diet and regular exercise and adequate sleep. Chronic pain issues stable on current meds. PDMP website checked and validated. All prescriptions have been APPROPRIATELY filled. No suspicious activity was identified. 05/29/2018 by Akin Barfield MD Has refills on gabapentin. For chronic neck and back pains as well as migraines. Continue present management. Continue present meds. Will refer to ortho or PT as indicated if left ankle and leg pain not continuing to resolve. Would be more careful when getting up from chair while wearing flip flops, especially if legs happen to be asleep again. The majority of the visit was spent counseling and/or coordinating care for the patient. Yoth-tl-hois time was at least 20 minutes. Akin Barfield MD Referring Provider: SELF [[id number]] Allergies As of Date: 05/29/2018 Noted Allergy Reaction bee stings [Other] 05/16/2005 MORPHINE 04/03/2017 11 - Vomiting RELAFEN (NABUMETONE) 11/26/2008 6 - Diarrhea Comments: 2005 tried med Date Reviewed: 05/29/2018 Reviewed by: González Nieves - Fully Assessed Reason for Visit: 6 mo f/up [Other] Primary Visit Diagnosis:Contusion of left foot, sequela [S90.32XS] Other Visit Diagnoses:Sprain of left ankle, unspecified ligament, sequela [S93.402S] Cervicalgia [M54.2] DDD (degenerative disc disease), lumbar [M51.36] Migraine variant [G43.809] Prescriptions as of 05/29/2018 Sig: PROMETHAZINE 25 MG TABLET Take 0.5-1 tablets by mouth e* GABAPENTIN 300 MG CAPSULE Take 3 pills in the morning a* BUDESONIDE DR - ER 3 MG CAPSU* Take 3 capsules by mouth once* X COLESTIPOL 1 GRAM TABLET Take 2 tablets by mouth twice* SUMATRIPTAN 100 MG TABLET Take at onset of migraine. Ma* DILTIAZEM SR 180 MG 24 HR CAP Take 1 capsule by mouth once * TOPIRAMATE 100 MG TABLET TAKE 2 TABLETS TWICE A DAY IN* FLUTICASONE 50 MCG/ACTUATION * Use 2 Sprays in each nostril * HYDROCODONE 5 MG-ACETAMINOPHE* Take 1 tablet by mouth every * DULOXETINE 60 MG CAPSULE,RAUL* Take 1 capsule by mouth twice* ALPRAZOLAM 0.5 MG TABLET Take 1 tablet by mouth twice * SGEPRXVP-JQP-LZWUY ACID 0.4 M* Take 1 tablet by mouth once d* * EPINEPHRINE 0.3 MG/0.3 ML INJ* Inject 0.3 ml subcutaneously * Medication notes this encounter COLESTIPOL 1 GRAM TABLET >> Akin Barfield MD 05/29/2018 11:19 AM >> AKIN BARFIELD MD SunMay 29, 2018 11:19 AM Told to take 3 in the AM and 2 in afternoon >> Akin Barfield MD 05/29/2018 11:19 AM >> AKIN BARFIELD MD SunMay 29, 2018 11:19 AM Taking just 3 pills in AM now OMEPRAZOLE 20 MG CAPSULE,DELAYED RELEASE >> González Nieves 05/29/2018 10:33 AM >> GONZÁLEZ NIEVES SunMay 29, 2018 10:33 AM Not taking Problem List As Of Date 05/29/2018 Noted Resolved CONCUSSION W/O COMA [S06.0X0A] SPRAIN OF NECK [S13.9XXA] SPRAIN THORACIC REGION [S23.9XXA] Migraine variant [G43.809] More... SKIN SENSATION DISTURB [R20.9] ESOPHAGEAL REFLUX [K21.9] Displacement of intervertebral disc of thoracol*INVALID FOR* Bee sting allergy [T63.91XA] INVALID FOR* SPRAIN LUMBOSACRAL [S33.5XXA] INVALID FOR* Painful respiration [R07.1] INVALID FOR*08/21/2013 Bruxism (teeth grinding) [F45.8] INVALID FOR* Lumbago [M54.5] INVALID FOR* Cervicalgia [M54.2] INVALID FOR* More... DDD (degenerative disc disease), lumbar [M51.36]INVALID FOR* More... Lumbar spondylosis [M47.816] INVALID FOR* Chronic back pain [M54.9, G89.29] INVALID FOR* Hypercholesteremia [E78.00] More... Bright red rectal bleeding [K62.5] INVALID FOR*07/29/2015 Nausea [R11.0] INVALID FOR*07/29/2015 Non-cardiac chest pain [R07.89] INVALID FOR* More... Displacement of cervical intervertebral disc wi*INVALID FOR* Medications Discontinued During This Encounter omeprazole (PRILOSEC) 20 mg capsule 90 c* 3 05/21/2017 05/29/2018 Route: ORAL Sig: Take 1 capsule by mouth daily before breakfast. 1/2 hr before meal. Disc: Reason for discontinue is not on file. Disposition: Return in about 6 months (around 11/26/2018) for 6 months follow up. Follow-up and Disposition History Recorded Encounter Status:Closed by AKIN BARFIELD MD on 06/10/18 CNCO Observed: 05/01/2018 Status: COMPLETED Source: [place] 11:42 AM [facility] REPOSITORY HNO ID: [id number] Author: Mammography Coordinator Service: (none) Author Type: Physician Type: Letter Filed: 05/02/2018 11:32 PM Note Text: May 01, 2018 PID: [id number] Saulo Mcgowan Juanjo [address] [place] [address] Dear Harvinder Geiger, We are pleased to inform you that the results of your recent breast imaging exam on 05/01/2018 are normal. Early detection of cancer is very important. We also understand recommendations regarding breast cancer screening are controversial. Please discuss with your primary care provider which strategy is best for you and whether a mammogram is right for you. Your imaging studies and report will be kept on file at [facility] as part of your permanent medical record and are available for your continuing care. Thank you for allowing us to help in meeting your health care needs. Sincerely, Dr. Seals Interpreting Radiologist [facility] (Normal over 40) [facility] SCREENING Observed: 05/01/2018 Status: F Source: [place] 11:37 AM [facility] REPOSITORY * * *Final Report* * * DATE OF EXAM: May 01 2018 11:37AM [facility] 0581 - [facility] SCREENING / PROCEDURE REASON: Encounter for screening mammogram for malignant neoplasm of breast * * * * Physician Interpretation * * * * RESULT: #[id number] - [facility] SCREENING BILATERAL DIGITAL SCREENING MAMMOGRAM WITH CAD: 05/01/2018 HISTORY: Encounter For Screening Mammogram For Malignant Neoplasm Of Breast /patient reports no breast symptoms /priors available for comparison. RESULT: TECHNIQUE: The study was acquired using full field digital technology and interpreted from soft copy. Current study was also evaluated with a Computer Aided Detection (CAD). Comparison is made to exams dated: 02/13/2017 mammogram, 05/30/2013 mammogram, 05/17/2012 mammogram - [facility], and 10/15/2008 [facility]. There are scattered fibroglandular elements in both breasts. No significant masses, calcifications, or other findings are seen in either breast. There has been no significant interval change. IMPRESSION: NEGATIVE There is no mammographic evidence of malignancy.A 1 year screening mammogram is recommended. The exam was reviewed by a staff physician. prema Cardenas M.D., M.D., cp/durga:05/01/2018 11:42:[address] Judge: Jeannie EVERETT(Nisa)(Jacqueline), [facility] letter sent: Normal over 40 Mammogram BI-RADS: 1 Negative Public Transportation Inspector: Durga Transcribe Date/Time: May 01 2018 11:19A Dictated by: KEVIN BELTRAN MD This examination was interpreted and the report reviewed and electronically signed by: RONDA SEALS MD on May 01 2018 11:42AM EST [facility] SCREENING Observed: 05/01/2018 Status: F Source: [place] 11:37 AM [facility] REPOSITORY * * *Final Report* * * DATE OF EXAM: May 01 2018 11:37AM [facility] 0581 - [facility] SCREENING / PROCEDURE REASON: Encounter for screening mammogram for malignant neoplasm of breast * * * * Physician Interpretation * * * * RESULT: #[id number] - [facility] SCREENING BILATERAL DIGITAL SCREENING MAMMOGRAM WITH CAD: 05/01/2018 HISTORY: Encounter For Screening Mammogram For Malignant Neoplasm Of Breast /patient reports no breast symptoms /priors available for comparison. RESULT: TECHNIQUE: The study was acquired using full field digital technology and interpreted from soft copy. Current study was also evaluated with a Computer Aided Detection (CAD). Comparison is made to exams dated: 02/13/2017 mammogram, 05/30/2013 mammogram, 05/17/2012 mammogram - [facility], and 10/15/2008 [facility]. There are scattered fibroglandular elements in both breasts. No significant masses, calcifications, or other findings are seen in either breast. There has been no significant interval change. IMPRESSION: NEGATIVE There is no mammographic evidence of malignancy.A 1 year screening mammogram is recommended. The exam was reviewed by a staff physician. Ronda Beltran M.D. ,nm/durga:05/01/2018 11:42:[address] Judge: Jeannie EVERETT(Nisa)(M), [facility] letter sent: Normal over 40 Mammogram BI-RADS: 1 Negative Public Transportation Inspector: Durga Transcribe Date/Time: May 01 2018 11:19A Dictated by: KEVIN BELTRAN MD This examination was interpreted and the report reviewed and electronically signed by: RONDA SEALS MD on May 01 2018 11:42AM EST [id number] PROGRESS Observed: 05/01/2018 Status: COMPLETED Source: [place] 11:[address] [facility] REPOSITORY HNO ID: [id number] Author: Cassidy Everett Service: (none) Author Type: (none) Type: Progress Notes Filed: 05/01/2018 11:36 AM Note Text: Radiology Service Progress Note PATIENT NAME: Saulo Geiger DATE OF SERVICE: May 01, 2018 TIME: 11:19 AM PATIENT IDENTITY VERIFICATION COMPLETED USING TWO (2) METHODS: Patient confirmed name verbally and Date of . PATIENT GENDER DATA: Female. status: : No status: NO. PATIENT RELEVANT IMPLANT DATA REVIEWED: Not Applicable RADIOLOGY DEPARTMENT: Women[facility] violeta scr mammogram PERIPHERAL IV DATA: Not applicable SIGNED BY: Cassidy Everett May 01, 2018 11:19 AM COMP METABOLIC PANEL Collected: 03/27/2018 Status: F Source: [place] 10:[address] [facility] REPOSITORY TYPE CODE TESTS RESULT OUT OF REFERENCE UNITS RANGE LAB TP 6.3-8.0 g/dL Protein, Total 6.9 LAB ALB 3.9-4.9 g/dL Albumin 4.6 LAB CA 8.5-10.2 mg/dL Calcium, Total 9.2 LAB TBIL 0.2-1.3 mg/dL Bilirubin, Total 0.3 LAB ALKP 32-117 U/L Alkaline High Phosphatase 118 LAB AST 13-35 U/L AST 20 LAB GLU 74-99 mg/dL Glucose High 109 Result Comment: The [place] Diabetes Association (ADA) provides guidance for cutoff values for fasting glucose and random glucose. The ADA defines fasting as no caloric intake for at least 8 hours. Fas ting plasma glucose results between 100 to 125 mg/dL indicate increased risk for diabetes (prediabetes). Fasting plasma glucose results greater than or equal to 126 mg/dL meet the criteria for diagnosis of diabetes. In the absence of unequivocal hyperglycemia, results should be confirmed by repeat testing. In a patient with classic symptoms of hyperglycemia or hyperglycemic crisis, random plasma glucose results greater than or equal to 200 mg/dL meet the criteria for diagnosis of diabetes. Reference: Standards of Medical Care in Diabetes 2016, [place] Diabetes Association. Diabetes Care. 2016.39(Suppl 1). LAB BUN 7-21 mg/dL BUN 14 LAB CRET 0.58-0.96 mg/dL Creatinine High 0.99 LAB NA 136-144 mmol/L Sodium 144 LAB K 3.7-5.1 mmol/L Potassium 3.8 LAB CL 97-105 mmol/L Chloride High 111 LAB CO2 22-30 mmol/L Low CO2 19 LAB AGAP 9-18 mmol/L Anion Gap 14 LAB ALT 7-38 U/L ALT 30 LAB GFRAA eGFR- Amer. >60 LAB GFRNAA . eGFR-All Other Races 58 Result Comment: eGFR (Estimated GFR) Units of measure: mL/min/1.73 meters squared eGFR is derived from the reexpressed MDRD Study equation using the following parameters: serum creatinine, age, gender and race. The creatinine assay has been calibrated to be traceable to IDMS. An eGFR <60 mL/min/1.73m2 for >3 months is consistent with chronic kidney disease. Refer to KDOQI guidelines for clinical interpretation. In patients with unstable renal function, e.g. those with acute kidney injury, the eGFR may not accurately reflect actual GFR. Performed By: #### CMP #### [facility] [address] [place], [place] [address] CBC Collected: 03/08/2018 Status: F Source: [place] 11:22 AM [facility] REPOSITORY TYPE CODE TESTS RESULT OUT OF REFERENCE UNITS RANGE LAB WBC 3.70-11.00 k/uL WBC 6.97 LAB RBC 3.90-5.20 m/uL RBC 4.85 LAB HGB 11.5-15.5 g/dL High Hemoglobin 15.7 LAB HCT 36.0-46.0 % High Hematocrit 49.2 LAB MCV 80.0-100.0 fL MCV High 101.4 LAB MCH 26.0-34.0 pG MCH 32.4 LAB MCHC 30.5-36.0 g/dL MCHC 31.9 LAB RDWCV 11.5-15.0 % RDW-CV 12.7 LAB PLTCT 150-400 k/uL Platelet Count 269 LAB MPV 9.0-12.7 fL MPV 11.0 LAB ABSNUC <0.01 k/uL Absolute nRBC <0.01 Performed By: #### CBC, AMYL, CMP, LIPA #### [facility] [address] [place], [place] [address] AMYLASE Collected: 03/08/2018 Status: F Source: [place] 11:[address] [facility] REPOSITORY TYPE CODE TESTS RESULT OUT OF REFERENCE UNITS RANGE LAB AMYL 30-104 U/L Amylase 69 Performed By: #### CBC, AMYL, CMP, LIPA #### [facility] [address] [place], [place] [address] COMP METABOLIC PANEL Collected: 03/08/2018 Status: F Source: [place] 11:[address] [facility] REPOSITORY TYPE CODE TESTS RESULT OUT OF REFERENCE UNITS RANGE LAB TP 6.3-8.0 g/dL Protein, Total 6.9 LAB ALB 3.9-4.9 g/dL Albumin 4.5 LAB CA 8.5-10.2 mg/dL Calcium, Total 9.9 LAB TBIL 0.2-1.3 mg/dL Bilirubin, Total 0.2 LAB ALKP 32-117 U/L Alkaline Phosphatase 102 LAB AST 13-35 U/L AST 20 LAB GLU 74-99 mg/dL Glucose High 111 Result Comment: The [place] Diabetes Association (ADA) provides guidance for cutoff values for fasting glucose and random glucose. The ADA defines fasting as no caloric intake for at least 8 hours. Fas ting plasma glucose results between 100 to 125 mg/dL indicate increased risk for diabetes (prediabetes). Fasting plasma glucose results greater than or equal to 126 mg/dL meet the criteria for diagnosis of diabetes. In the absence of unequivocal hyperglycemia, results should be confirmed by repeat testing. In a patient with classic symptoms of hyperglycemia or hyperglycemic crisis, random plasma glucose results greater than or equal to 200 mg/dL meet the criteria for diagnosis of diabetes. Reference: Standards of Medical Care in Diabetes 2016, [place] Diabetes Association. Diabetes Care. 2016.39(Suppl 1). LAB BUN 7-21 mg/dL BUN 19 LAB CRET 0.58-0.96 mg/dL Creatinine High 1.01 LAB NA 136-144 mmol/L Sodium High 146 LAB K 3.7-5.1 mmol/L Low Potassium 3.5 LAB CL 97-105 mmol/L Chloride High 111 LAB CO2 22-30 mmol/L Low CO2 18 LAB AGAP 9-18 mmol/L Anion Gap 17 LAB ALT 7-38 U/L ALT 21 LAB GFRAA eGFR- Amer. >60 LAB GFRNAA . eGFR-All Other Races 57 Result Comment: eGFR (Estimated GFR) Units of measure: mL/min/1.73 meters squared eGFR is derived from the reexpressed MDRD Study equation using the following parameters: serum creatinine, age, gender and race. The creatinine assay has been calibrated to be traceable to IDMS. An eGFR <60 mL/min/1.73m2 for >3 months is consistent with chronic kidney disease. Refer to KDOQI guidelines for clinical interpretation. In patients with unstable renal function, e.g. those with acute kidney injury, the eGFR may not accurately reflect actual GFR. Performed By: #### CBC, AMYL, CMP, LIPA #### [facility] [address] [place], [place] [address] LIPASE Collected: 03/08/2018 Status: F Source: [place] 11:[address] [facility] REPOSITORY TYPE CODE TESTS RESULT OUT OF REFERENCE UNITS RANGE LAB LIPA 16-61 U/L High Lipase 72 Performed By: #### CBC, AMYL, CMP, LIPA #### [facility] [address] [place], [place] [address] HISTORY PHYSICAL Observed: 03/08/2018 Status: COMPLETED Source: [place] 10:[address] [facility] REPOSITORY HNO ID: [id number] Author: Cassidy Aldridge) Tamika Service: (none) Author Type: Nurse Practitioner Type: HANDP Filed: 03/08/2018 11:49 AM Note Text: Saulo Geiger a 57 year old female who is here for evaluation of GI symptoms. Her PCP is Dr. Barfield. The patient had called in on 02/25/18 as noted below. I told them she would have to be seen since it had been nearly a year since she was last here. Note 02/25/18 Patient requesting a refill on Entocort. She is having severe bile stool when she eats everything is going right thru her. Some of the stool is uncontrollable. The stool is bile diarrhea. This has been going on since she has had the gallbladder surgery. Has lost weight. Last seen in the office was 04/03/17. She called Dr. Barifeld and they would not refill for patient. Please advise today. Patient can be reached at [phone]. She thinks the Omeprazole is also increasing the bile stool. She was using Imodium at least 4 to 6 per day stopped 1 month ago. She felt it was making her full and she was going every 2 days. Jo Sparks LPN The patient was seen by Dr. Alejo for upper endoscopy 04/05/17. The procedure report has been reviewed and findings as follows: Impression: ? ? - Z-line irregular, 39 cm from the incisors. Biopsied. ? - Erythematous mucosa in the antrum. Biopsied. ? - Normal duodenal bulb and second portion of the ? duodenum. Biopsied. FINAL DIAGNOSIS 1. Duodenum, second portion, biopsy (A) - Duodenal mucosa with no pathologic diagnostic abnormality; negative for celiac disease and dysplasia. 2. Stomach, antrum, biopsy (B) - Gastric antral body type mucosa with no pathologic diagnostic abnormality; see comment. 3. Esophagogastric junction, biopsy (C) - Mild reactive squamous mucosa and gastric oxyntic type mucosa with foveolar hyperplasia; negative for intestinal metaplasia and dysplasia. SS/rw 04/06/2017 COMMENT 2. No microorganisms morphologically compatible with H. pylori are identified on routine ROSARIO stained sections. The patient was seen by Dr. Caban for colonoscopy 07/29/15. The procedure report has been reviewed and findings as follows: Impression: ? ? - One 5 mm polyp at 20 cm proximal to the anus. ? Resected and retrieved. ? - One 30 mm polyp in the rectum. Resected and ? retrieved. Clip was placed. ? - Diverticulosis in the sigmoid colon and in the ? descending colon. Final diagnosis Colon, 20 cm, polypectomy (C) - Colonic mucosa with no diagnostic alteration. Rectum, polypectomy (D) - Tubular adenoma. Dr. Caban recommended three year surveillance, with MAC. Presenting complaint: The patient presents today reporting that omeprazole made her diarrhea worse. Stools are urgent. Minimal gas. REVIEW OF SYSTEMS: GENERAL: Malaise. No fever. GI: The patient states that her appetite has been adequate. She does get hungry. There has been some nausea, no vomiting. She denies dysphagia and denies odynophagia. There has been indigestion without heartburn. There has rarely been regurgitation. Bowel habits have been irregular. There has been diarrhea. There has not been constipation. The patient denies rectal bleeding. There has not been melena. Intermittent abdominal pain. All other reviewed and negative other than HPI. PAST MEDICAL HISTORY Diagnosis Date - Bee sting allergy 04/28/2008 - Concussion with no loss of consciousness - Displacement of intervertebral disc, site unspecified, without myelopathy 11/30/2006 [facility] claim - Disturbance of skin sensation - Esophageal reflux - Hypercholesteremia - Mental disorder anxiety - Multiple rib fractures 2012 Fell down stairs to basement-- 5th and 6th rib fractures and left great toe fracture - Snoring - Sprain of lumbosacral (joint) (ligament) - Sprain of neck [facility] claim - Sprain of thoracic region [facility] claim - Tubular adenoma of colon 07/29/15 Dr. Caban - Variants of migraine, not elsewhere classified, without mention of intractable migraine without mention of status migrainosus PAST SURGICAL HISTORY Procedure Laterality Date - COLONOSCOP W/ OR W/O [facility] SPEC 07/29/2015 Colonoscopy - EGD W/O OR W/BRUSH/WASH 07/29/2015 EGD - EGD W/O OR W/BRUSH/WASH 04/05/2017 EGD - PAST SURGICAL HISTORY OF bilat feet - reconstruction - REMOVAL GALLBLADDER 02/26/2017 Cholecystectomy; [facility] with Dr. Alejo FAMILY HISTORY Problem Relation Age of Onset - Breast Cancer Mother - Diabetes Mother - Heart Mother - Cancer Father liver ca - Diabetes Sister Current Outpatient Prescriptions: budesonide, enteric coated (ENTOCORT EC) 3 mg 24 hr capsule Take 3 capsules by mouth once daily. Disp: 90 capsule Rfl: 0 promethazine (PHENERGAN) 25 mg tablet Take 0.5-1 tablets by mouth every 6 hours as needed. Disp: 30 tablet Rfl: 1 dicyclomine (BENTYL) 10 mg capsule Take 1 capsule by mouth before meals and at bedtime. As directed for stomach cramping and diarrhea Disp: 60 capsule Rfl: 1 SUMAtriptan (IMITREX) 100 mg tablet Take at onset of migraine. May repeat once after 2 hours if needed. No more than 2 pills in a 24 hour period. Disp: 54 tablet Rfl: 3 gabapentin (NEURONTIN) 300 mg capsule Take 3 pills in the morning and 3 pills at bedtime. Disp: 540 capsule Rfl: 1 diltiazem CD (CARTIA XT) 180 mg 24 hr capsule Take 1 capsule by mouth once daily. Disp: 90 capsule Rfl: 3 topiramate (TOPAMAX) 100 mg tablet TAKE 2 TABLETS TWICE A DAY IN THE MORNING AND AT BEDTIME Disp: 270 tablet Rfl: 3 fluticasone (FLONASE) 50 mcg/actuation nasal spray Use 2 Sprays in each nostril once daily. Rinse mouth after use. Disp: 1 Bottle Rfl: 0 omeprazole (PRILOSEC) 20 mg capsule Take 1 capsule by mouth daily before breakfast. 1/2 hr before meal. Disp: 90 capsule Rfl: 3 HYDROcodone-acetaminophen (NORCO) 5-325 mg per tablet Take 1 tablet by mouth every 4 hours as needed. Disp: 30 tablet Rfl: 0 DULoxetine (CYMBALTA) 60 mg capsule Take 1 capsule by mouth twice daily. (Dr. Herrera) Disp: Rfl: ALPRAZolam (XANAX) 0.5 mg tablet Take 1 tablet by mouth twice daily as needed. (Dr. Herrera) Disp: Rfl: MV with Ubz-Ntcwuorq-Kglnwf (CENTRUM SILVER) 0.4-300-250 mg-mcg-mcg tab Take 1 tablet by mouth once daily. Disp: Rfl: EPINEPHrine 0.3 mg/0.3 mL PnIj Inject 0.3 ml subcutaneously as needed for bee sting Disp: 2 Each Rfl: 1 No current facility-administered medications for this visit. SOCIAL HISTORY: Reviewed. PHYSICAL EXAMINATION: Blood pressure 131/82, pulse 67, height 167.6 cm (5' 6), weight 73 kg (161 lb), last menstrual period 10/18/2006. General Appearance: Alert, in no acute distress, well-hydrated, well nourished.. Skin: Skin color, texture, turgor normal, no suspicious rashes or lesions. Head: Normocephalic, no masses, lesions, tenderness or abnormalities. Eyes: Anicteric sclera. Pupils are equally round and reactive to light. Extraocular movements are intact. . Neck: Supple, no adenopathy; thyroid symmetric, normal size, no bruits. Lungs: Lungs clear to auscultation. No wheezing, rhonchi, rales. Heart: RRR without murmur, gallop, or rubs. No ectopy. Abdomen: Abdomen soft, vague tenderness throughout. Bowel sounds normal. No masses, organomegaly. Extremities: No deformities, edema, skin discoloration, clubbing or cyanosis. Impression: functional bowel disorder - post pravin. Plan: Start colestipol. Stop endocort if she gets bound up. Follow up 04/01. Call if any problems before that. Surveillance colonoscopy later this year. I have personally interviewed and examined this patient. I have reviewed the information that the MA entered for this encounter. I spent 30 minutes in the visit, with greater than 50% of the total budh-po-bpnq time of the visit in counseling and coordination of care. Cassidy Lundberg RN APRN.BONY JUAREZOV Observed: 03/08/2018 Status: COMPLETED Source: [place] 10:[address] [facility] REPOSITORY [facility] SAULO GEIGER I ([id number]) 1960 F NFR Date Time Provider Department 03/08/18 10:20 AM CASSIDY LUNDBERG (BONSAI TENDER) [facility] During your visit today, we recorded the following information about you: Pulse Blood pressure Weight Height 67/minute 131/82 73 kg 1.676 m Cassidy Lundberg RN APRN.SIMULATION TECHNICIAN 03/08/2018 11:49 AM Signed Saulo Geiger a 57 year old female who is here for evaluation of GI symptoms. Her PCP is Dr. Barfield. The patient had called in on 02/25/18 as noted below. I told them she would have to be seen since it had been nearly a year since she was last here. Note 02/25/18 Patient requesting a refill on Entocort. She is having severe bile stool when she eats everything is going right thru her. Some of the stool is uncontrollable. The stool is bile diarrhea. This has been going on since she has had the gallbladder surgery. Has lost weight. Last seen in the office was 04/03/17. She called Dr. Barfield and they would not refill for patient. Please advise today. Patient can be reached at [phone]. She thinks the Omeprazole is also increasing the bile stool. She was using Imodium at least 4 to 6 per day stopped 1 month ago. She felt it was making her full and she was going every 2 days. Jo Sparks LPN The patient was seen by Dr. Alejo for upper endoscopy 04/05/17. The procedure report has been reviewed and findings as follows: Impression: ? ? - Z-line irregular, 39 cm from the incisors. Biopsied. ? - Erythematous mucosa in the antrum. Biopsied. ? - Normal duodenal bulb and second portion of the ? duodenum. Biopsied. FINAL DIAGNOSIS 1. Duodenum, second portion, biopsy (A) - Duodenal mucosa with no pathologic diagnostic abnormality; negative for celiac disease and dysplasia. 2. Stomach, antrum, biopsy (B) - Gastric antral body type mucosa with no pathologic diagnostic abnormality; see comment. 3. Esophagogastric junction, biopsy (C) - Mild reactive squamous mucosa and gastric oxyntic type mucosa with foveolar hyperplasia; negative for intestinal metaplasia and dysplasia. SS/rw 04/06/2017 COMMENT 2. No microorganisms morphologically compatible with H. pylori are identified on routine ROSARIO stained sections. The patient was seen by Dr. Caban for colonoscopy 07/29/15. The procedure report has been reviewed and findings as follows: Impression: ? ? - One 5 mm polyp at 20 cm proximal to the anus. ? Resected and retrieved. ? - One 30 mm polyp in the rectum. Resected and ? retrieved. Clip was placed. ? - Diverticulosis in the sigmoid colon and in the ? descending colon. Final diagnosis Colon, 20 cm, polypectomy (C) - Colonic mucosa with no diagnostic alteration. Rectum, polypectomy (D) - Tubular adenoma. Dr. Caban recommended three year surveillance, with MAC. Presenting complaint: The patient presents today reporting that omeprazole made her diarrhea worse. Stools are urgent. Minimal gas. REVIEW OF SYSTEMS: GENERAL: Malaise. No fever. GI: The patient states that her appetite has been adequate. She does get hungry. There has been some nausea, no vomiting. She denies dysphagia and denies odynophagia. There has been indigestion without heartburn. There has rarely been regurgitation. Bowel habits have been irregular. There has been diarrhea. There has not been constipation. The patient denies rectal bleeding. There has not been melena. Intermittent abdominal pain. All other reviewed and negative other than HPI. PAST MEDICAL HISTORY Diagnosis Date - Bee sting allergy 04/28/2008 - Concussion with no loss of consciousness - Displacement of intervertebral disc, site unspecified, without myelopathy 11/30/2006 [facility] claim - Disturbance of skin sensation - Esophageal reflux - Hypercholesteremia - Mental disorder anxiety - Multiple rib fractures 2012 Fell down stairs to basement-- 5th and 6th rib fractures and left great toe fracture - Snoring - Sprain of lumbosacral (joint) (ligament) - Sprain of neck [facility] claim - Sprain of thoracic region [facility] claim - Tubular adenoma of colon 07/29/15 Dr. Caban - Variants of migraine, not elsewhere classified, without mention of intractable migraine without mention of status migrainosus PAST SURGICAL HISTORY Procedure Laterality Date - COLONOSCOP W/ OR W/O [facility] SPEC 07/29/2015 Colonoscopy - EGD W/O OR W/BRUSH/WASH 07/29/2015 EGD - EGD W/O OR W/BRUSH/WASH 04/05/2017 EGD - PAST SURGICAL HISTORY OF bilat feet - reconstruction - REMOVAL GALLBLADDER 02/26/2017 Cholecystectomy; [facility] with Dr. Alejo FAMILY HISTORY Problem Relation Age of Onset - Breast Cancer Mother - Diabetes Mother - Heart Mother - Cancer Father liver ca - Diabetes Sister Current Outpatient Prescriptions: budesonide, enteric coated (ENTOCORT EC) 3 mg 24 hr capsule Take 3 capsules by mouth once daily. Disp: 90 capsule Rfl: 0 promethazine (PHENERGAN) 25 mg tablet Take 0.5-1 tablets by mouth every 6 hours as needed. Disp: 30 tablet Rfl: 1 dicyclomine (BENTYL) 10 mg capsule Take 1 capsule by mouth before meals and at bedtime. As directed for stomach cramping and diarrhea Disp: 60 capsule Rfl: 1 SUMAtriptan (IMITREX) 100 mg tablet Take at onset of migraine. May repeat once after 2 hours if needed. No more than 2 pills in a 24 hour period. Disp: 54 tablet Rfl: 3 gabapentin (NEURONTIN) 300 mg capsule Take 3 pills in the morning and 3 pills at bedtime. Disp: 540 capsule Rfl: 1 diltiazem CD (CARTIA XT) 180 mg 24 hr capsule Take 1 capsule by mouth once daily. Disp: 90 capsule Rfl: 3 topiramate (TOPAMAX) 100 mg tablet TAKE 2 TABLETS TWICE A DAY IN THE MORNING AND AT BEDTIME Disp: 270 tablet Rfl: 3 fluticasone (FLONASE) 50 mcg/actuation nasal spray Use 2 Sprays in each nostril once daily. Rinse mouth after use. Disp: 1 Bottle Rfl: 0 omeprazole (PRILOSEC) 20 mg capsule Take 1 capsule by mouth daily before breakfast. 1/2 hr before meal. Disp: 90 capsule Rfl: 3 HYDROcodone-acetaminophen (NORCO) 5-325 mg per tablet Take 1 tablet by mouth every 4 hours as needed. Disp: 30 tablet Rfl: 0 DULoxetine (CYMBALTA) 60 mg capsule Take 1 capsule by mouth twice daily. (Dr. Herrera) Disp: Rfl: ALPRAZolam (XANAX) 0.5 mg tablet Take 1 tablet by mouth twice daily as needed. (Dr. Herrera) Disp: Rfl: MV with Ytl-Tsygrybj-Kqhstn (CENTRUM SILVER) 0.4-300-250 mg-mcg-mcg tab Take 1 tablet by mouth once daily. Disp: Rfl: EPINEPHrine 0.3 mg/0.3 mL PnIj Inject 0.3 ml subcutaneously as needed for bee sting Disp: 2 Each Rfl: 1 No current facility-administered medications for this visit. SOCIAL HISTORY: Reviewed. PHYSICAL EXAMINATION: Blood pressure 131/82, pulse 67, height 167.6 cm (5' 6), weight 73 kg (161 lb), last menstrual period 10/18/2006. General Appearance: Alert, in no acute distress, well-hydrated, well nourished.. Skin: Skin color, texture, turgor normal, no suspicious rashes or lesions. Head: Normocephalic, no masses, lesions, tenderness or abnormalities. Eyes: Anicteric sclera. Pupils are equally round and reactive to light. Extraocular movements are intact. . Neck: Supple, no adenopathy; thyroid symmetric, normal size, no bruits. Lungs: Lungs clear to auscultation. No wheezing, rhonchi, rales. Heart: RRR without murmur, gallop, or rubs. No ectopy. Abdomen: Abdomen soft, vague tenderness throughout. Bowel sounds normal. No masses, organomegaly. Extremities: No deformities, edema, skin discoloration, clubbing or cyanosis. Impression: functional bowel disorder - post pravin. Plan: Start colestipol. Stop endocort if she gets bound up. Follow up 04/01. Call if any problems before that. Surveillance colonoscopy later this year. I have personally interviewed and examined this patient. I have reviewed the information that the MA entered for this encounter. I spent 30 minutes in the visit, with greater than 50% of the total daxq-gi-dxgm time of the visit in counseling and coordination of care. Cassidy Lundberg RN LEAD MAN OVER ALL DIES IN PATTERN [employer]OP.BONY Lundberg RN APRN.BONY 03/08/2018 11:06 AM Signed We will call you Sunday with the results of the blood work. Start the new medication, taking two each morning and two before supper. Stop the entocort if you get bound up. (that's the 3 morning pills) Follow up with me on Sunday, April 01, arriving at 10:20. Call if there are problems before that. Referring Provider: CASSIDY LUNDBERG (CHENG) [[id number]] Allergies As of Date: 03/08/2018 Noted Allergy Reaction bee stings [Other] 05/16/2005 MORPHINE 04/03/2017 11 - Vomiting RELAFEN (NABUMETONE) 11/26/2008 6 - Diarrhea Comments: 2005 tried med Date Reviewed: 03/08/2018 Reviewed by: Savi Romo Ma - Fully Assessed Reason for Visit: Diarrhea [35] Primary Visit Diagnosis:Altered bowel function [R19.4] Order(s):CBC [SQCBC] Order #: [id number] FUTURE COMP METABOLIC PANEL [SQCMP] Order #: [id number] FUTURE AMYLASE BLD [SQAMYL] Order #: [id number] FUTURE LIPASE BLD [SQLIPA] Order #: [id number] FUTURE colestipol (COLESTID) 1 gram tabletTake 2 tablets by mouth twice daily.Disp: 120 tabletRfl: 2 Prescriptions as of 03/08/2018 Sig: COLESTIPOL 1 GRAM TABLET Take 2 tablets by mouth twice* BUDESONIDE DR - ER 3 MG CAPSU* Take 3 capsules by mouth once* PROMETHAZINE 25 MG TABLET Take 0.5-1 tablets by mouth e* SUMATRIPTAN 100 MG TABLET Take at onset of migraine. Ma* GABAPENTIN 300 MG CAPSULE Take 3 pills in the morning a* DILTIAZEM SR 180 MG 24 HR CAP Take 1 capsule by mouth once * TOPIRAMATE 100 MG TABLET TAKE 2 TABLETS TWICE A DAY IN* FLUTICASONE 50 MCG/ACTUATION * Use 2 Sprays in each nostril * OMEPRAZOLE 20 MG CAPSULE,RAUL* Take 1 capsule by mouth daily* HYDROCODONE 5 MG-ACETAMINOPHE* Take 1 tablet by mouth every * DULOXETINE 60 MG CAPSULE,RAUL* Take 1 capsule by mouth twice* ALPRAZOLAM 0.5 MG TABLET Take 1 tablet by mouth twice * BQEFKJVY-UXS-POPRG ACID 0.4 M* Take 1 tablet by mouth once d* * EPINEPHRINE 0.3 MG/0.3 ML INJ* Inject 0.3 ml subcutaneously * Problem List As Of Date 03/08/2018 Noted Resolved CONCUSSION W/O COMA [S06.0X0A] SPRAIN OF NECK [S13.9XXA] SPRAIN THORACIC REGION [S23.9XXA] Migraine variant [G43.809] More... SKIN SENSATION DISTURB [R20.9] ESOPHAGEAL REFLUX [K21.9] DISC DISPLACEMENT NOS [BSK9535] INVALID FOR* Bee sting allergy [T63.91XA] INVALID FOR* SPRAIN LUMBOSACRAL [S33.5XXA] INVALID FOR* Painful respiration [R07.1] INVALID FOR*08/21/2013 Bruxism (teeth grinding) [F45.8] INVALID FOR* Lumbago [M54.5] INVALID FOR* Cervicalgia [M54.2] INVALID FOR* More... DDD (degenerative disc disease), lumbar [M51.36]INVALID FOR* More... Lumbar spondylosis [M47.816] INVALID FOR* Chronic back pain [M54.9, G89.29] INVALID FOR* Hypercholesteremia [E78.00] More... Bright red rectal bleeding [K62.5] INVALID FOR*07/29/2015 Nausea [R11.0] INVALID FOR*07/29/2015 Non-cardiac chest pain [R07.89] INVALID FOR* More... Other instructions from your clinician: We will call you Sunday with the results of the blood work. Start the new medication, taking two each morning and two before supper. Stop the entocort if you get bound up. (that's the 3 morning pills) Follow up with me on Sunday, April 01, arriving at 10:20. Call if there are problems before that. Prescriptions ordered this encounter Disp Refills Start End COLESTIPOL 1 GRAM TABLET 120 * 2 03/08/2018 Route: ORAL Sig: Take 2 tablets by mouth twice daily. Medications Discontinued During This Encounter dicyclomine (BENTYL) 10 mg capsule 60 c* 1 11/20/2017 03/08/2018 Route: ORAL Sig: Take 1 capsule by mouth before meals and at bedtime. As directed for stomach cramping and diarrhea Disc: Lack of Efficacy Encounter Status:Closed by CASSIDY LUNDBERG CNP on 03/08/18 PROGRESS Observed: 11/20/2017 Status: COMPLETED Source: [place] 12:03 PM [facility] [facility] REPOSITORY HNO ID: [id number] Author: Akin Barfield Service: (none) Author Type: Physician Type: Progress Notes Filed: 11/29/2017 8:00 PM Note Text: Patient presents with: Recheck SUBJECTIVE: Saulo Geiger is a 57 year old year old lady here today for 6 month follow up appointment for review of medical conditions. Sick today Lots of nausea since gallbladder out. No heart burn. Today almost canceled. Started coughing with feeling like going to throw up. Chlolestyramine had not helped with the diarrhea. Takes imodium--2 to 4 pills at a time at once to be effective. Tried soup. Still caused diarrhea. Has to avoid grease and fat since cholecystectomy. Ongoing back pain. No better. PAST MEDICAL HISTORY Diagnosis Date - Bee sting allergy 04/28/2008 - Concussion with no loss of consciousness - Displacement of intervertebral disc, site unspecified, without myelopathy 11/30/2006 [facility] claim - Disturbance of skin sensation - Esophageal reflux - Hypercholesteremia - Mental disorder anxiety - Multiple rib fractures 2012 Fell down stairs to basement-- 5th and 6th rib fractures and left great toe fracture - Snoring - Sprain of lumbosacral (joint) (ligament) - Sprain of neck [facility] claim - Sprain of thoracic region [facility] claim - Tubular adenoma of colon 07/29/15 Dr. Caban - Variants of migraine, not elsewhere classified, without mention of intractable migraine without mention of status migrainosus Current Outpatient Prescriptions: gabapentin (NEURONTIN) 300 mg capsule Take 3 pills in the morning and 3 pills at bedtime. diltiazem CD (CARTIA XT) 180 mg 24 hr capsule Take 1 capsule by mouth once daily. topiramate (TOPAMAX) 100 mg tablet TAKE 2 TABLETS TWICE A DAY IN THE MORNING AND AT BEDTIME fluticasone (FLONASE) 50 mcg/actuation nasal spray Use 2 Sprays in each nostril once daily. Rinse mouth after use. omeprazole (PRILOSEC) 20 mg capsule take 1 capsule by mouth once daily rizatriptan (MAXALT) 10 mg tablet TAKE 1 TABLET DIRECTED AT ONSET OF HEADACHE, MAY REPEAT AFTER 2 HOURS, DO NOT EXCEED 3 TABLETS (30 MG) PER DAY omeprazole (PRILOSEC) 20 mg capsule Take 1 capsule by mouth daily before breakfast. 1/2 hr before meal. promethazine (PHENERGAN) 25 mg tablet Take 0.5-1 tablets by mouth every 6 hours as needed. budesonide, enteric coated (ENTOCORT EC) 3 mg 24 hr capsule Take 3 capsules by mouth once daily. Cholestyramine-Aspartame (CHOLESTYRAMINE LIGHT) 4 gram powder Take 4 g by mouth three times daily with meals. HYDROcodone-acetaminophen (NORCO) 5-325 mg per tablet Take 1 tablet by mouth every 4 hours as needed. DULoxetine (CYMBALTA) 60 mg capsule Take 1 capsule by mouth twice daily. (Dr. Herrera) ALPRAZolam (XANAX) 0.5 mg tablet Take 1 tablet by mouth twice daily as needed. (Dr. Herrera) MV with Ryh-Dcymjuyi-Nuyryu (CENTRUM SILVER) 0.4-300-250 mg-mcg-mcg tab Take 1 tablet by mouth once daily. EPINEPHrine 0.3 mg/0.3 mL PnIj Inject 0.3 ml subcutaneously as needed for bee sting No current facility-administered medications for this visit. OBJECTIVE: BP 108/72 Pulse 80 Temp 37.1 ?C (98.7 ?F) (Temporal Artery) Resp 16 Wt 74.8 kg (165 lb) LMP 10/18/2006 BMI 26.63 kg/m2 Patient is alert, oriented times 3, no apparent distress, affect is bright, reactive. Last 5 Encounter BP Readings: Date: BP: 11/20/2017 108/72 07/23/2017 116/80 05/21/2017 138/88 04/03/2017 137/67 04/03/2017 123/78 Last 5 Encounter Wt Readings: Date: Wt: 11/20/2017 74.8 kg (165 lb) 07/23/2017 73.9 kg (163 lb) 05/21/2017 73 kg (161 lb) 04/03/2017 73.5 kg (162 lb) 03/16/2017 73.1 kg (161 lb 3.2 oz) Heart: Regular rate, rhythm, no murmurs, gallops, rubs. Lungs: Clear to auscultation, bilaterally, breathing non labored. Abdomen: soft, ND, NABS; diffusely tender, no rebound or guarding. Not a surgical abdomen. Back: tender all over back; she cannot straighten up her posture without wincing with pain. Floyd straighten of normal curves of neck and lumbar spine. Ext: No cyanosis, clubbing, or edema. ASSESSMENT AND PLAN: Encounter Diagnosis ICD-10-CM 1. Diarrhea, unspecified type R19.7 dicyclomine (BENTYL) 10 mg capsule 2. Nausea R11.0 promethazine (PHENERGAN) 25 mg tablet occasional nausea 3. Gastroesophageal reflux disease, esophagitis presence not specified K21.9 4. Other chronic back pain M54.9 G89.29 5. Migraine variant G43.809 SUMAtriptan (IMITREX) 100 mg tablet Above issues addressed with patient. Patient involved in shared decision making for management of her medical issues. History and medications reviewed. Epic updated as needed Refills taken care of and meds adjusted as indicated after reviewed history, exam and labs. Health Maintenance reviewed. Updated record and/or ordered tests as recorded. Further evaluation and treatment as indicated. Encouraged on efforts at healthy diet and regular exercise and adequate sleep. The majority of the visit was spent counseling and/or coordinating care for the patient. Vekh-fj-fbve time was at least 25 minutes. Akin Barfield MD CNOV Observed: 11/20/2017 Status: COMPLETED Source: [place] 11:[address] [facility] REPOSITORY Office Visit ([facility]) SAULO GEIGER I ([id number]) 1960 F NFR Date Time Provider Department 11/20/17 11:40 AM AKIN BARFIELD [facility] During your visit today, we recorded the following information about you: Temperature Pulse Respiration Blood pressure 98.7 degrees 80/minute 16/minute 108/72 Weight 74.8 kg Akin Barfield MD 11/29/2017 8:00 PM Signed Patient presents with: Recheck SUBJECTIVE: Saulo Geiger is a 57 year old year old lady here today for 6 month follow up appointment for review of medical conditions. Sick today Lots of nausea since gallbladder out. No heart burn. Today almost canceled. Started coughing with feeling like going to throw up. Chlolestyramine had not helped with the diarrhea. Takes imodium--2 to 4 pills at a time at once to be effective. Tried soup. Still caused diarrhea. Has to avoid grease and fat since cholecystectomy. Ongoing back pain. No better. PAST MEDICAL HISTORY Diagnosis Date - Bee sting allergy 04/28/2008 - Concussion with no loss of consciousness - Displacement of intervertebral disc, site unspecified, without myelopathy 11/30/2006 [facility] claim - Disturbance of skin sensation - Esophageal reflux - Hypercholesteremia - Mental disorder anxiety - Multiple rib fractures 2012 Fell down stairs to basement-- 5th and 6th rib fractures and left great toe fracture - Snoring - Sprain of lumbosacral (joint) (ligament) - Sprain of neck [facility] claim - Sprain of thoracic region [facility] claim - Tubular adenoma of colon 07/29/15 Dr. Caban - Variants of migraine, not elsewhere classified, without mention of intractable migraine without mention of status migrainosus Current Outpatient Prescriptions: gabapentin (NEURONTIN) 300 mg capsule Take 3 pills in the morning and 3 pills at bedtime. diltiazem CD (CARTIA XT) 180 mg 24 hr capsule Take 1 capsule by mouth once daily. topiramate (TOPAMAX) 100 mg tablet TAKE 2 TABLETS TWICE A DAY IN THE MORNING AND AT BEDTIME fluticasone (FLONASE) 50 mcg/actuation nasal spray Use 2 Sprays in each nostril once daily. Rinse mouth after use. omeprazole (PRILOSEC) 20 mg capsule take 1 capsule by mouth once daily rizatriptan (MAXALT) 10 mg tablet TAKE 1 TABLET DIRECTED AT ONSET OF HEADACHE, MAY REPEAT AFTER 2 HOURS, DO NOT EXCEED 3 TABLETS (30 MG) PER DAY omeprazole (PRILOSEC) 20 mg capsule Take 1 capsule by mouth daily before breakfast. 1/2 hr before meal. promethazine (PHENERGAN) 25 mg tablet Take 0.5-1 tablets by mouth every 6 hours as needed. budesonide, enteric coated (ENTOCORT EC) 3 mg 24 hr capsule Take 3 capsules by mouth once daily. Cholestyramine-Aspartame (CHOLESTYRAMINE LIGHT) 4 gram powder Take 4 g by mouth three times daily with meals. HYDROcodone-acetaminophen (NORCO) 5-325 mg per tablet Take 1 tablet by mouth every 4 hours as needed. DULoxetine (CYMBALTA) 60 mg capsule Take 1 capsule by mouth twice daily. (Dr. Herrera) ALPRAZolam (XANAX) 0.5 mg tablet Take 1 tablet by mouth twice daily as needed. (Dr. Herrera) MV with Qqu-Ssgsgsjn-Kcqybw (CENTRUM SILVER) 0.4-300-250 mg-mcg-mcg tab Take 1 tablet by mouth once daily. EPINEPHrine 0.3 mg/0.3 mL PnIj Inject 0.3 ml subcutaneously as needed for bee sting No current facility-administered medications for this visit. OBJECTIVE: BP 108/72 Pulse 80 Temp 37.1 ?C (98.7 ?F) (Temporal Artery) Resp 16 Wt 74.8 kg (165 lb) LMP 10/18/2006 BMI 26.63 kg/m2 Patient is alert, oriented times 3, no apparent distress, affect is bright, reactive. Last 5 Encounter BP Readings: Date: BP: 11/20/2017 108/72 07/23/2017 116/80 05/21/2017 138/88 04/03/2017 137/67 04/03/2017 123/78 Last 5 Encounter Wt Readings: Date: Wt: 11/20/2017 74.8 kg (165 lb) 07/23/2017 73.9 kg (163 lb) 05/21/2017 73 kg (161 lb) 04/03/2017 73.5 kg (162 lb) 03/16/2017 73.1 kg (161 lb 3.2 oz) Heart: Regular rate, rhythm, no murmurs, gallops, rubs. Lungs: Clear to auscultation, bilaterally, breathing non labored. Abdomen: soft, ND, NABS; diffusely tender, no rebound or guarding. Not a surgical abdomen. Back: tender all over back; she cannot straighten up her posture without wincing with pain. Floyd straighten of normal curves of neck and lumbar spine. Ext: No cyanosis, clubbing, or edema. ASSESSMENT AND PLAN: Encounter Diagnosis ICD-10-CM 1. Diarrhea, unspecified type R19.7 dicyclomine (BENTYL) 10 mg capsule 2. Nausea R11.0 promethazine (PHENERGAN) 25 mg tablet occasional nausea 3. Gastroesophageal reflux disease, esophagitis presence not specified K21.9 4. Other chronic back pain M54.9 G89.29 5. Migraine variant G43.809 SUMAtriptan (IMITREX) 100 mg tablet Above issues addressed with patient. Patient involved in shared decision making for management of her medical issues. History and medications reviewed. Epic updated as needed Refills taken care of and meds adjusted as indicated after reviewed history, exam and labs. Health Maintenance reviewed. Updated record and/or ordered tests as recorded. Further evaluation and treatment as indicated. Encouraged on efforts at healthy diet and regular exercise and adequate sleep. The majority of the visit was spent counseling and/or coordinating care for the patient. Evmm-rb-ewkb time was at least 25 minutes. Akin Barfield MD Referring Provider: SELF [[id number]] Allergies As of Date: 11/20/2017 Noted Allergy Reaction MORPHINE 04/03/2017 11 - Vomiting RELAFEN (NABUMETONE) 11/26/2008 6 - Diarrhea Comments: 2005 tried med bee stings [Other] 05/16/2005 Date Reviewed: 11/20/2017 Reviewed by: Nieves Wang Manager Coding - Fully Assessed Reason for Visit: Recheck [92] Primary Visit Diagnosis:Diarrhea, unspecified type [R19.7] Other Visit Diagnoses:Nausea [R11.0] Comment:occasional nausea Gastroesophageal reflux disease, esophagitis presence not specified [K21.9] Other chronic back pain [M54.9, G89.29] Migraine variant [G43.809] Order(s):promethazine (PHENERGAN) 25 mg tabletTake 0.5-1 tablets by mouth every 6 hours as needed.Disp: 30 tabletRfl: 1 dicyclomine (BENTYL) 10 mg capsuleTake 1 capsule by mouth before meals and at bedtime. As directed for stomach cramping and diarrheaDisp: 60 capsuleRfl: 1 SUMAtriptan (IMITREX) 100 mg tabletTake at onset of migraine. May repeat once after 2 hours if needed. No more than 2 pills in a 24 hour period.Disp: 54 tabletRfl: 3 Prescriptions as of 11/20/2017 Sig: PROMETHAZINE 25 MG TABLET Take 0.5-1 tablets by mouth e* DICYCLOMINE 10 MG CAPSULE Take 1 capsule by mouth befor* SUMATRIPTAN 100 MG TABLET Take at onset of migraine. Ma* GABAPENTIN 300 MG CAPSULE Take 3 pills in the morning a* DILTIAZEM SR 180 MG 24 HR CAP Take 1 capsule by mouth once * TOPIRAMATE 100 MG TABLET TAKE 2 TABLETS TWICE A DAY IN* FLUTICASONE 50 MCG/ACTUATION * Use 2 Sprays in each nostril * OMEPRAZOLE 20 MG CAPSULE,RAUL* Take 1 capsule by mouth daily* BUDESONIDE DR - ER 3 MG CAPSU* Take 3 capsules by mouth once* HYDROCODONE 5 MG-ACETAMINOPHE* Take 1 tablet by mouth every * DULOXETINE 60 MG CAPSULE,RAUL* Take 1 capsule by mouth twice* ALPRAZOLAM 0.5 MG TABLET Take 1 tablet by mouth twice * OIRFDUXP-XZP-MTRVA ACID 0.4 M* Take 1 tablet by mouth once d* * EPINEPHRINE 0.3 MG/0.3 ML INJ* Inject 0.3 ml subcutaneously * Medication notes this encounter RIZATRIPTAN 10 MG TABLET >> Akin Barfield MD 11/20/2017 12:44 PM not working well now Problem List As Of Date 11/20/2017 Noted Resolved CONCUSSION W/O COMA [S06.0X0A] SPRAIN OF NECK [S13.9XXA] SPRAIN THORACIC REGION [S23.9XXA] Migraine variant [G43.809] More... SKIN SENSATION DISTURB [R20.9] ESOPHAGEAL REFLUX [K21.9] DISC DISPLACEMENT NOS [QNT2962] INVALID FOR* Bee sting allergy [T63.91XA] INVALID FOR* SPRAIN LUMBOSACRAL [S33.5XXA] INVALID FOR* Painful respiration [R07.1] INVALID FOR*08/21/2013 Bruxism (teeth grinding) [F45.8] INVALID FOR* Lumbago [M54.5] INVALID FOR* Cervicalgia [M54.2] INVALID FOR* More... DDD (degenerative disc disease), lumbar [M51.36]INVALID FOR* More... Lumbar spondylosis [M47.816] INVALID FOR* Chronic back pain [M54.9, G89.29] INVALID FOR* Hypercholesteremia [E78.00] More... Bright red rectal bleeding [K62.5] INVALID FOR*07/29/2015 Nausea [R11.0] INVALID FOR*07/29/2015 Non-cardiac chest pain [R07.89] INVALID FOR* More... Prescriptions ordered this encounter Disp Refills Start End PROMETHAZINE 25 MG TABLET 30 t* 1 11/20/2017 Route: ORAL Sig: Take 0.5-1 tablets by mouth every 6 hours as needed. DICYCLOMINE 10 MG CAPSULE 60 c* 1 11/20/2017 Route: ORAL Sig: Take 1 capsule by mouth before meals and at bedtime. As directed for stomach cramping and diarrhea SUMATRIPTAN 100 MG TABLET 54 t* 3 11/20/2017 Sig: Take at onset of migraine. May repeat once after 2 hours if needed. No more than 2 pills in a 24 hour period. Medications Discontinued During This Encounter omeprazole (PRILOSEC) 20 mg capsule 30 c* 1 07/20/2017 11/20/2017 Sig: take 1 capsule by mouth once daily Disc: Reason for discontinue is not on file. Cholestyramine-Aspartame (CHOLESTYRA* 60 P* 1 03/05/2017 11/20/2017 Route: ORAL Sig: Take 4 g by mouth three times daily with meals. Disc: Lack of Efficacy promethazine (PHENERGAN) 25 mg tablet 30 t* 1 05/21/2017 11/20/2017 Route: ORAL Sig: Take 0.5-1 tablets by mouth every 6 hours as needed. Disc: Reason for discontinue is not on file. rizatriptan (MAXALT) 10 mg tablet 270 * 3 07/13/2017 11/20/2017 Sig: TAKE 1 TABLET DIRECTED AT ONSET OF HEADACHE, MAY REPEAT AFTER 2 HOURS, DO NOT EXCEED 3 TABLETS (30 MG) PER DAY Disc: Lack of Efficacy Disposition: Return in about 6 months (around 05/23/2018), or if symptoms worsen or fail to improve, for 6 months follow up. Follow-up and Disposition History Recorded Letter Text Department of Internal Medicine [address] [address] 11/20/2017 THIS IS A PRESCRIPTION FOR HANDICAPPED PARKING PERMIT Re: Saulo Geiger [address] [address] The above named person requires a disability parking placard. DURATION: LIFETIME EXPIRATION: RENEW EVERY 5 YEARS Sincerely, Akin Barfield MD Encounter Status:Closed by AKIN BARFIELD MD on 11/29/17 CNPTOUTREA Observed: 11/06/2017 Status: COMPLETED Source: [place] 12:[address] [facility] REPOSITORY Patient Outreach ([facility]) SAULO GEIGER I ([id number]) 1960 F NFR Date Time Provider Department 11/06/17 AKIN BARFIELD [facility] During your visit today, we recorded the following information about you: Allergies As of Date: 11/06/2017 Noted Allergy Reaction bee stings [Other] 05/16/2005 MORPHINE 04/03/2017 11 - Vomiting RELAFEN (NABUMETONE) 11/26/2008 6 - Diarrhea Comments: 2004 tried med Date Reviewed: 07/23/2017 Reviewed by: Tye Billingsley - Fully Assessed Visit Diagnosis:Medication management [Z79.899] Order(s):TSH BLD [SQTSH] Order #: [id number] FUTURE LIPID PANEL BASIC [SQLIPB] Order #: [id number] FUTURE Prescriptions as of 11/06/2017 Sig: DILTIAZEM SR 180 MG 24 HR CAP Take 1 capsule by mouth once * TOPIRAMATE 100 MG TABLET TAKE 2 TABLETS TWICE A DAY IN* X GABAPENTIN 300 MG CAPSULE Take 3 pills in the morning a* FLUTICASONE 50 MCG/ACTUATION * Use 2 Sprays in each nostril * X OMEPRAZOLE 20 MG CAPSULE,RAUL* take 1 capsule by mouth once * X RIZATRIPTAN 10 MG TABLET TAKE 1 TABLET DIRECTED AT * X OMEPRAZOLE 20 MG CAPSULE,RAUL* Take 1 capsule by mouth daily* X PROMETHAZINE 25 MG TABLET Take 0.5-1 tablets by mouth e* X BUDESONIDE DR - ER 3 MG CAPSU* Take 3 capsules by mouth once* HYDROCODONE 5 MG-ACETAMINOPHE* Take 1 tablet by mouth every * X CHOLESTYRAMINE-ASPARTAME 4 GR* Take 4 g by mouth three times* DULOXETINE 60 MG CAPSULE,RAUL* Take 1 capsule by mouth twice* ALPRAZOLAM 0.5 MG TABLET Take 1 tablet by mouth twice * [id number]-TJE-ENFWE ACID 0.4 M* Take 1 tablet by mouth once d* * EPINEPHRINE 0.3 MG/0.3 ML INJ* Inject 0.3 ml subcutaneously * Problem List As Of Date 11/06/2017 Noted Resolved CONCUSSION W/O COMA [S06.0X0A] SPRAIN OF NECK [S13.9XXA] SPRAIN THORACIC REGION [S23.9XXA] Migraine variant [G43.809] More... SKIN SENSATION DISTURB [R20.9] ESOPHAGEAL REFLUX [K21.9] DISC DISPLACEMENT NOS [ARB8958] INVALID FOR* Bee sting allergy [T63.91XA] INVALID FOR* SPRAIN LUMBOSACRAL [S33.5XXA] INVALID FOR* Painful respiration [R07.1] INVALID FOR*08/21/2013 Bruxism (teeth grinding) [F45.8] INVALID FOR* Lumbago [M54.5] INVALID FOR* Cervicalgia [M54.2] INVALID FOR* More... DDD (degenerative disc disease), lumbar [M51.36]INVALID FOR* More... Lumbar spondylosis [M47.816] INVALID FOR* Chronic back pain [M54.9, G89.29] INVALID FOR* Hypercholesteremia [E78.00] More... Bright red rectal bleeding [K62.5] INVALID FOR*07/29/2015 Nausea [R11.0] INVALID FOR*07/29/2015 Non-cardiac chest pain [R07.89] INVALID FOR* More... Encounter Status:Closed by EPIC, PRODUSER on 06/21/18 ALLERGIES ALLERGIES DATE TYPE / CODE NAME / CODE REACTION SEVERITY SOURCE 08/27/2018 Drug morphine/O26350 Nausea Unknown [place] Allergy/594877646(S 1545(RXNORM) [facility] NOM CT) Hospital Repository 08/27/2018 Drug zolpidem/T75161 Other Unknown [place] Allergy[facility]560135362[facility] 08/27/2018 Drug venom-honey Unknown Unknown Gurpreet Allergy/184263319(S bee/[id number]( [facility] NOMED [place]) RXNORM) Hospital Repository 04/03/2017 DRUG M[facility]PHINE [id number] [place] Repository 11/26/2008 DRUG NABUMETONE DIARRHEA [id number] [place] Repository 05/16/2005 Miscellaneous OTHER [place] [facility]23[facility] [place] [facility] ENCOUNTERS ENCOUNTERS ADMIT/DISCHARGE ACCOUNT ADMITTING ENCOUNTER LOCATION SOURCE NUMBER CLASS 08/28/2018 [id number] Ambulatory BMSBuilding:B Gurpreet MS.CF.[facility] Repository 08/28/2018/08/28/20 [id number] Ambulatory [place] Gurpreet [facility] ing:ENRoom: Repository AC14 08/10/2018/08/10/20 [id number] Ambulatory [address] Repository 08/10/2018/08/27/20 [id number] Ambulatory [address] Repository 07/25/2018 [id number] Ambulatory BMSBuilding:Timbo Vázquez MS.[facility] Repository 07/25/2018/07/29/20 [id number] [place] Emergency Gurpreet Gurpreet [address] [place] [address] Hospital ing:MU4Ongd: Repository TQ546Xpd: 1 07/25/2018 [id number] [place] Ambulatory BMSBuilding:Timbo Vázquez MS.[facility] Repository 07/25/2018 [id number] [place] Ambulatory BMSBuilding:Timbo Vázquez MS.[facility] Repository 07/25/2018 [id number] [place] Ambulatory BMSBuilding:Timbo Vázquez MS.CF.[facility] Repository 07/25/2018 [id number] [place] Ambulatory BMSBuilding:Timbo Vázquez MS.[facility] Repository 07/25/2018 [id number] [place] Ambulatory BMSBuilding:Timbo Vázquez MS.CF.[facility] Repository 07/25/2018 [id number] [place] Ambulatory BMSBuilding:Timbo Vázquez MS.[facility] Repository 05/29/2018/06/12/20 [id number] Ambulatory [address] Repository 05/01/2018/05/01/20 [id number] Ambulatory [address] Repository 03/27/2018/03/27/20 [id number] Ambulatory [address] Repository 03/08/2018/03/08/20 [id number] Ambulatory [address] Repository 03/08/2018/03/11/20 [id number] Ambulatory [address] Repository 11/20/2017/11/21/19 [id number] Ambulatory [address] Repository PAYERS PAYERS ENCOUNTER GUARANTOR PAYER SUBSCRIBER SOURCE 08/28/2018 SAULO I Primary SAULO I Gurpreet [id number] N Insurance:MEDICAL [place]ONER[place]DOB: [facility] [id number] [facility] [address]Tli: Number: Repository [id number] (HP) Date:0444-10-59YT [address] [address]FJ: 08/28/2018 Secondary NOT GIVENUNK [place] Insurance:SELF PAY [facility] Number: Effective Repository Date:2018-08-28 08/28/2018 SAULO I Primary SAULO I [place] [id number] N Insurance:MEDICAL STONEROCKDOB: [facility] [id number] [facility] [address]Aef: Number: Repository [id number] (HP) Date:8168-54-13ZQ [address] [address]HU: 08/28/2018 Secondary NOT GIVENUNK Gurpreet Insurance:SELF PAY [facility] Number: Effective Repository Date:2018-08-05 07/25/2018 SAULO I Primary SAULO I [place] [id number] N Insurance:MEDICAL STONEROCKDOB: [facility] [id number] [facility] [address]Lua: Number: Repository [id number] (HP) Date:2994-51-54LQ [address] [address]RN: 07/25/2018 Secondary NOT GIVENUNK [place] Insurance:SELF PAY [facility] Number: Effective Repository Date:2018-07-25 07/25/2018 SAULO I Primary SAULO I Gurpreet [id number] N Insurance:MEDICAL STONER[place]DOB: [facility] [id number] [facility] [address]Ldz: Number: Repository [id number] (HP) Date:5363-60-12AB [address] [address]VI: 07/25/2018 Secondary NOT GIVENUNK Gurpreet Insurance:SELF PAY [facility] Number: Effective Repository Date:2018-07-25 07/25/2018 SAULO I Primary SAULO I [place] [id number] N Insurance:MEDICAL STONEROCKDOB: [facility] [id number] [facility] [address]Gtk: Number: Repository [id number] (HP) Date:2989-32-75VQ [address] [place], [place] [address]WP: 07/25/2018 Secondary NOT GIVENUNK [place] Insurance:SELF PAY [facility] Number: Effective Repository Date:2018-07-25 07/25/2018 SAULO I Primary SAULO I Gurpreet [id number] N Insurance:MEDICAL STONER[place]DOB: [facility] [id number] [facility] [address]Uwr: Number: Repository [id number] (HP) Date:0162-17-06XP [address] [address]OO: 07/25/2018 Secondary NOT GIVENUNK Gurpreet Insurance:SELF PAY [facility] Number: Effective Repository Date:2018-07-25 07/25/2018 SAULO I Primary SAULO I [place] [id number] N Insurance:MEDICAL STONER[place]DOB: [facility] [id number] [facility] [address]Zsr: Number: Repository [id number] (HP) Date:5003-67-25RV [address] [place] [address]XG: 07/25/2018 Secondary NOT GIVENUNK [place] Insurance:SELF PAY [facility] Number: Effective Repository Date:2018-07-25 07/25/2018 SAULO I Primary SAULO I [place] [id number] N Insurance:MEDICAL STONEROCKDOB: [facility] [id number] [facility] [address]Obw: Number: Repository [id number] (HP) Date:7631-91-86CF [address] [address]HL: 07/25/2018 Secondary NOT GIVENUNK [place] Insurance:SELF PAY [facility] Number: Effective Repository Date:2018-07-25 07/25/2018 SAULO I Primary SAULO I [place] [id number] N Insurance:MEDICAL STONEROCKDOB: [facility] [id number] [facility] [address]Tqw: Number: Repository [id number] (HP) Date:9789-52-15RG [address] [address]BB: 07/25/2018 Secondary NOT GIVENUNK [place] Insurance:SELF PAY [facility] Number: Effective Repository Date:2018-07-25 07/25/2018 SAULO I Primary SAULO I Gurpreet [id number] N Insurance:MEDICAL STONEROCKDOB: [facility] [id number] [facility] [address]Jpx: Number: Repository [id number] (HP) Date:5796-58-78RD [address] [address]OM: 07/25/2018 Secondary NOT GIVENUNK [place] Insurance:SELF PAY [facility] Number: Effective Repository Date:2018-07-25
== END 2018-08-28 10:25 | disposition home or self-care (01) ==
LOC: EN 07:12 → AC 07:13
PROVIDERS: Family Provider Internal Medicine; PCP Internal Medicine; Referring Provider Surgery; Visit Provider Surgery
PROC: 0DJD8ZZ Inspection of Lower Intestinal Tract, Via Natural or Artificial Opening Endoscopic (ICD-10-PCS; CPT 45378; principal; 2018-08-28 08:25)
DX: K57.30 Diverticulosis of large intestine without perforation or abscess without bleeding (principal); R93.3 Abnormal findings on diagnostic imaging of other parts of digestive tract; I10 Essential (primary) hypertension; G43.909 Migraine, unspecified, not intractable, without status migrainosus; F41.9 Anxiety disorder, unspecified; F32.9 Major depressive disorder, single episode, unspecified; M54.9 Dorsalgia, unspecified; G89.29 Other chronic pain; Z87.19 Personal history of other diseases of the digestive system; Z78.0 Asymptomatic menopausal state; Z90.49 Acquired absence of other specified parts of digestive tract; Z79.899 Other long term (current) drug therapy; Z87.891 Personal history of nicotine dependence
CPT/HCPCS: 45380; 88305; J7120; J1610; J2405

== ENCOUNTER 2019-05-09 16:16 | Emergency (ER) | payer OTHER, SELFPAY ==
[2019-05-09 16:18] VITALS: BP 139/93; PULSE 88; RESP 16; TEMP 36.4; O2SAT 95; BMI 26.4
--- NOTE | 2019-05-09 16:39 | CT_ITS ---
STUDY: CT ABDOMEN AND PELVIS WITH CONTRAST REASON FOR EXAM: Female, 58 years old. Diffuse abdominal pain for 3 weeks. RADIATION DOSAGE (If Supplied By Facility): CTDIvol = ( 15.01 ) mGy, DLP = ( 869.62 ) mGycm TECHNIQUE: Transaxial images were obtained from the dome of the diaphragm to the symphysis pubis with oral contrast. 100 IV/Oral Isovue 300 was administered. Sagittal and coronal images were reconstructed. Individualized dose optimization techniques were used for this CT. COMPARISON: July 26, 2018. FINDINGS: The visualized lung bases are unremarkable. The visualized portions of the heart are within normal limits. Normal liver. There is non-visualization of the gallbladder, which may be secondary to either contraction or a prior cholecystectomy. Normal spleen. Normal pancreas. Normal bilateral adrenal glands. Normal right kidney. Normal left kidney. Normal ureters. Normal visualized stomach. Normal small intestine. There is sigmoid diverticulosis without acute inflammatory change. The proximal colon is unremarkable. The appendix is visualized and appears normal. There is minimal atherosclerotic change of the distal aorta and iliac arteries. There is no dissection or aneurysm. Normal inferior vena cava. Normal retroperitoneum. Normal urinary bladder. Normal uterus and ovaries. There is no pelvic lymphadenopathy. No free air or free fluid is seen within the peritoneal cavity. Small umbilical hernia of omental fat. There are diffuse degenerative changes of the visualized lumbar spine. CT/Abdomen/Pelvis WITH Contrast IMPRESSION: 1. Sigmoid diverticulosis without acute inflammatory change. 2. Atherosclerotic changes of the aorta. 3. Nonvisualization of gallbladder question prior cholecystectomy. 4. Stable degenerative changes of the lumbar spine. Electronically Signed: Stoney Mckee DO at 19:10 EDT Tel [phone], Service support ,
--- NOTE | 2019-05-09 16:40 | ED.DCSUM_ITS ---
History of Present Illness Chief Complaint: Abd Pain Informant: Patient - Abdominal Pain/Flank Pain Onset: Weeks - 3 Context: Sudden Onset - during PCP exam Timing: Continuous Quality: Aching Location: Diffuse Current Severity: Severe Maximum Severity: Severe Worsened by: Car ride, Nothing. Not Worsened By: Food Relieved by: Nothing - Nausea/Vomiting/Emesis GI Symptom: Negative for: Nausea, Vomiting - Diarrhea/Melena/Hematochezia GI Symptom: Diarrhea. Negative for: Melena, Hematochezia Stool Quality: - - Green nonbloody, rather than here usual yellow diarrhea for the past 3 years Associated Symptoms: - - Decreased urine output recently. Negative for: Dysuria, Frequency, Hematuria, Urgency Narrative: Patient states she started having abdominal pain when she was at the PCP for a routine visit/checkup 3 weeks ago and they performed an abdominal exam. She states it hurts immensely to undergo the exam which was an external abdominal exam. When asked if she had any pain before that, she states not that I know of. She states ever since the physician exam she has been having abdominal discomfort throughout every day and it has not gone away at all. Over the last 3 days it has progressively become extreme and much worse, same pain. No nausea or vomiting. Whenever she eats, it causes her to have diarrhea very quickly. She had a cholecystectomy 3 years ago and ever since, states she has been having light yellow diarrhea. While he was again, that continues, but now it is green, she states that is very unusual for her. She was sent here by PCP to get a CAT scan. - Past Medical History (1) Diverticulitis Status: Chronic (2) Anxiety and depression Status: Chronic (3) Chronic back pain Status: Chronic (4) Hypertension Status: Chronic (5) Migraine headache Status: Chronic Past Medical History - Allergies and Home Meds Allergies/Adverse Reactions: Allergies venom-honey bee [bee venom (honey bee)] Allergy (Verified 04/25/19 11:03) Unknown morphine Adverse Reaction (Verified 04/25/19 11:03) Nausea zolpidem [From Ambien] Adverse Reaction (Verified 04/25/19 11:03) Other sleep walking, hallucinations Primary Care Physician: Ibeth Barfield MD [Primary Care Provider] - Surgical History: cholecystectomy, - - colonoscopy Smoking Status: Former smoker Alcohol: None Drugs: None - Family History Maternal Family History: Reports: - - Brain aneurysm Paternal Family History: Reports: Heart Disease Review of Systems General: Denies: Chills, Fever, Sweats Eyes: Denies: Visual changes - bilaterally, Diplopia ENT: Denies: Rhinorrhea, Sore throat Cardiovascular: Denies: Chest pain, Palpitations Respiratory: Denies: Dyspnea, Cough, Dyspnea on exertion Gastrointestinal: Reports: Abdominal pain, Diarrhea. Denies: Nausea, Vomiting, Melena, Hematochezia Genitourinary: Denies: Dysuria, Hematuria, Frequency Musculoskeletal: Reports: Back pain - Chronic, unchanged. Denies: Swelling, Extremity Pain Skin: Denies: Rash, Wounds Neurological: Denies: Headache, Weakness, Numbness Physical Exam Vital Signs/Narrative: Vital Signs Temp Pulse Resp BP Pulse Ox 05/09/19 16:18 97.5 F L 88 16 139/93 H 95 Inital Vital Signs reviewed: Yes General: Well nourished, Well developed, No Acute Distress Head: Normocephalic, Atraumatic Eyes: Perrl, EOMI ENT: Moist mucous membranes, No rhinorrhea Neck: Supple, Nontender Cardiovascular: Regular rate, Regular rhythm, No murmurs Respiratory: No distress, CTA bilaterally, Chest nontender Abdomen: Soft, Nondistended, Normal bowel sounds, Tender - Diffusely, nonfocal. Negative for: Guarding, Rebound tenderness, Pulsatile mass Back: Nontender, Normal Inspection. Negative for: CVA tenderness Extremities: Nontender, No edema. Negative for: Calf Tenderness Skin: Normal color, No rash, No Trauma Neurological: Alert, Oriented x3, Cranial nerves II-XII grossly intact, Normal Strength, Normal Sensation Psychological: Normal affect, Normal Mood Diagnostic/Tx/Re-eval Impressions Abdomen/Pelvis CT 05/09/19 16:39 IMPRESSION: 1. Sigmoid diverticulosis without acute inflammatory change. 2. Atherosclerotic changes of the aorta. 3. Nonvisualization of gallbladder question prior cholecystectomy. 4. Stable degenerative changes of the lumbar spine. Electronically Signed: Stoney Mckee DO at 19:10 EDT Tel [phone], Service support , 05/09/19 16:39 Abdomen/Pelvis WITH Contrast [CT] Stat Laboratory Results 05/09/19 05/09/19 05/09/19 16:51 16:51 19:17 WBC 8.6 RBC 4.51 Hgb 14.7 Hct 45.7 MCV 101.3 H MCH 32.6 H MCHC 32.2 RDW Std Deviation 46.8 H RDW Coeff of Bek[place] 12.3 Plt Count 223 MPV 9.9 Immature Gran % (Auto) 0.300 Neut % (Auto) 78.5 H Lymph % (Auto) 15.5 L [place] % (Auto) 4.8 Eos % (Auto) 0.7 Baso % (Auto) 0.2 Absolute Neuts (auto) 6.8 Absolute Lymphs (auto) 1.33 Nucleated RBC % 0 Sodium 141 Potassium 3.5 Chloride 113 H Carbon Dioxide 21.0 Anion Gap 7 BUN 12 Creatinine 1.13 H Estim Creat Clear Calc 52.04 Est GFR (MDRD) Af Amer 64 Est GFR (MDRD) Non-Af 53 L BUN/Creatinine Ratio 10.6 Glucose 93 Calcium 8.7 Total Bilirubin 0.50 AST 21 ALT 29 Alkaline Phosphatase 133 H Total Protein 6.9 Albumin 3.8 Globulin 3.1 Albumin/Globulin Ratio 1.2 Urine Color Yellow Urine Clarity Clear Urine pH 7.0 Ur Specific [place] 1.005 Urine Protein Negative Urine Glucose (UA) Normal Urine Ketones Negative Urine Occult Blood Negative Urine Nitrite Negative Urine Bilirubin Negative Urine Urobilinogen Normal Ur Leukocyte Esterase 25 H Urine RBC 0 SEEN Urine WBC 0-5 SEEN Ur Squamous Epith Cells 0-5 SEEN Urine Bacteria 0 SEEN Urine Mucus 0 SEEN - Medical Decision Making Labs are unremarkable, urine shows no signs of infection, and CT shows no acute abnormality. Diverticulosis is noted without diverticulitis. The CT does not show the cause of her abdominal discomfort. Given her symptoms, and diffuse nature of the pain, it may be intraluminal intestinal pain. She states that the combination of morphine, dicyclomine, Zofran did not give her major improvement. She is well-appearing and her vital signs are stable. She is asking if she needs to be admitted to the hospital. I see no indication for that at this time. I feel she can safely be discharged to follow-up as an outpatient. 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 Discussed reasons to return to the ER in the meantime. ED Disposition - Plan for ED Patient: Disposition: Home or Assisted Living Diagnosis: Diffuse abdominal pain Instructions: ABDOMINAL PAIN, Unkown Cause, (Male) Prescriptions: Dicyclomine HCl [Bentyl] 20 mg PO .Q4-6H PRN #20 cap PRN Reason: abdominal pain Transmission Status: Pending to [facility] Sucralfate [Carafate] 1 gm PO 4X/DAY #28 tab Transmission Status: Pending to [facility] Referrals: Ibeth Barfield MD [Primary Care Provider] - 3-5 Days
[2019-05-09] MEDS: 0.9% Normal Saline 1,000 ML 250 ML IV (16:59)
[2019-05-09] MEDS: Morphine 4 MG/ML Syringe IV (17:00)
[2019-05-09] MEDS: Ondansetron 4 MG/2 ML Vial IV (17:00)
[2019-05-09 17:04] LABS: Absolute Lymphocyte Count 1.33 X10^3/uL (0.83-4.51); Absolute Neutrophil Count 6.8 X10^3/uL (2.0-7.7); Basophil# 0.02 X10^3/uL; Basophil% 0.2 % (0-1); Eosinophil# 0.06 X10^3/uL; Eosinophils% 0.7 % (0-5); Hematocrit 45.7 % (37-47); Hemoglobin 14.7 g/dL (12.0-15.0); Lymphocyte # 1.33 X10^3/ul (4.0); Lymphocyte % 15.5 % (19-41); Mean Corp Hgb Conc 32.2 g/dL (32-36); Mean Corpuscular Hgb 32.6 pg (27.0-32.0); Mean Corpuscular Volume 101.3 fL (81-99); Mean Platelet Vol. 9.9 fl (6.2-12.0); Monocyte# 0.41 X10^3/uL; Monocyte% 4.8 % (0-10); NRBC Flagged by Analyzer 0 % (0-5); Neutrophil # 6.75 X10^3/uL (2.7-7.7); Neutrophil % 78.5 % (47-70); Platelet Count 223 K/mm3 (150-450); RBC Distribution Width CV 12.3 % (11.6-14.6); RBC Distribution Width SD 46.8 fl (35.1-43.9); Red Blood Count 4.51 M/mm3 (4.2-5.4); White Blood Count 8.6 K/mm3 (4.4-11.0)
[2019-05-09] MEDS: Dicyclomine 20 MG/2 ML Vial IM (17:13)
[2019-05-09 17:41] LABS: ALB/GLOB Ratio 1.2 RATIO (0.9-2.4); AST(SGOT) 21 U/L (15-37); Alanine Aminotransfer ALT/SGPT 29 U/L (13-56); Albumin, Serum 3.8 g/dL (3.2-5.0); Alkaline Phosphatase 133 U/L (45-117); Anion Gap 7 (5-15); BUN 12 mg/dL (7-18); BUN/Creat Ratio 10.6 RATIO (10-20); Calcium,Total 8.7 mg/dL (8.5-10.1); Chloride 113 mmol/L (98-107); Creatinine, Serum 1.13 mg/dL (0.55-1.02); EST Glomerular Filtration Rate 53 mL/min (>60); Est Glom Filt Rate - Afr Amer 64 mL/min (>60); Estimated Creatinine Clearance 52.04 ml/min; Globulin 3.1 g/dL (2.2-4.2); Glucose 93 mg/dL (74-106); Potassium 3.5 mmol/L (3.5-5.1); Protein, Total 6.9 g/dL (6.4-8.2); Sodium Level 141 mmol/L (136-145)
--- NOTE | 2019-05-09 19:16 | EKG12_ITS ---
Test Reason : CP Blood Pressure : / mmHG Vent. Rate : 060 BPM Atrial Rate : 060 BPM P-R Int : 176 ms QRS Dur : 090 ms QT Int : 416 ms P-R-T Axes : 056 021 020 degrees QTc Int : 416 ms Normal sinus rhythm Normal ECG Confirmed by DONNA BULLARD, ENZO ([id number]), editor in chief newspaper TAN WHITE ([id number]) on 05/13/2019 11:20:03 AM Referred By: BB Confirmed By:ENZO THOMPSON MD
[2019-05-09 19:29] LABS: Bacteria 0 SEEN /hpf (None Seen); Mucous, Urine 0 SEEN /hpf (<or=2+); Red Blood Cells-Urine 0 SEEN /hpf (0-5)
[2019-05-09 19:35] LABS: Color, Urine Yellow (Yellow); Glucose, Dipstick Normal (Normal); Ketone-Dipstick Negative (Negative); Leukocyte Esterase-Dipstick 25 /ul (Negative); Nitrite-Dipstick Negative (Negative); Occult Blood-Urine Negative /ul (Negative); Protein-Dipstick Negative (Negative); Specific Gravity, Urine 1.005 (1.002-1.030); Urine Bilirubin Dipstick Negative (Negative); Urine Clarity Clear (Clear); Urine Urobilinogen Normal (Normal)
[2019-05-09 19:42] LABS: Squamous Epithelial Cells - UA 0-5 SEEN /hpf (5-10); White Blood Cells 0-5 SEEN /hpf (0-5)
[2019-05-09] MEDS: Mag Hydrox/Al Hydrox/Simeth 30 ML UDC PO (20:57)
[2019-05-09] MEDS: Ketorolac 15 MG/ML Vial IV (20:58)
[2019-05-09 21:06] VITALS: BP 148/50; PULSE 70; RESP 18; O2SAT 98
== END 2019-05-09 21:07 | disposition home or self-care (01) ==
PROVIDERS: Emergency Provider Emergency Medicine; Family Provider Internal Medicine; PCP Internal Medicine
DX: R10.84 Generalized abdominal pain (principal); R19.7 Diarrhea, unspecified; K57.30 Diverticulosis of large intestine without perforation or abscess without bleeding; I70.0 Atherosclerosis of aorta; F41.9 Anxiety disorder, unspecified; F32.9 Major depressive disorder, single episode, unspecified; M54.9 Dorsalgia, unspecified; G89.29 Other chronic pain; I10 Essential (primary) hypertension; G43.909 Migraine, unspecified, not intractable, without status migrainosus; Z87.19 Personal history of other diseases of the digestive system; Z90.49 Acquired absence of other specified parts of digestive tract; Z79.899 Other long term (current) drug therapy; Z87.891 Personal history of nicotine dependence
CPT/HCPCS: 74177; 80053; 81001; 85025; 93005; 96361; 96372; 96374; 96375; 99284; J7030; Q9967; A4216; J2405

== ENCOUNTER → 2020-11-10 15:59 | Outpatient (CLI) | payer OTHER, SELFPAY ==
[2020-11-10 18:35] LABS: CRP < 2.90 mg/L (0.0-3.0); T4 Total, Thyroxin 7.3 ug/dL (4.8-13.9); Thyroid Stim Hormone (TSH) 1.16 uIU/mL (0.358-3.74)
[2020-11-12 16:08] LABS: Endomysial Antibody IgA Negative (Negative)
[2020-11-12 16:44] LABS: Immunoglobulin A 127 mg/dL (87-352); t-Transglutaminase IgA <2 U/mL (0-3)
== END ==
PROVIDERS: PCP Internal Medicine; Referring Provider Internal Medicine Gastroenterology; Visit Provider Internal Medicine Gastroenterology
DX: R19.7 Diarrhea, unspecified (principal)
CPT/HCPCS: 36415; 82784; 83516; 84436; 84443; 86140; 86255

== ENCOUNTER 2023-01-28 11:35 | Emergency (ER) | payer BC, SELFPAY ==
[2023-01-28 11:37] VITALS: BP 158/107; PULSE 89; RESP 16; TEMP 35.6; O2SAT 97; BMI 23.1
--- NOTE | 2023-01-28 11:53 | RAD_ITS ---
INDICATION: chest pain EXAMINATION/TECHNIQUE: X-RAY - XR Chest 1 View COMPARISON: February 23, 2017 FINDINGS: LINES/DEVICES: None. LUNGS: No consolidation, edema or effusion. No pneumothorax. MEDIASTINUM AND CARDIOVASCULAR STRUCTURES: Cardiac silhouette not enlarged. Central airways and mediastinal contour are unremarkable. BONES AND SOFT TISSUES: There are bilateral posterior rib deformities consistent with healed fractures. RAD/Chest 1 View (Portable) IMPRESSION: No radiographic evidence of acute cardiopulmonary disease. Electronically Signed: Breanna Orellana MD at 13:05 EDT ,
--- NOTE | 2023-01-28 11:53 | EKG12_ITS ---
Test Reason : Blood Pressure : / mmHG Vent. Rate : 072 BPM Atrial Rate : 072 BPM P-R Int : 168 ms QRS Dur : 086 ms QT Int : 372 ms P-R-T Axes : 050 012 022 degrees QTc Int : 407 ms Normal sinus rhythm Nonspecific ST and T wave abnormality Abnormal ECG Confirmed by LEONIE BULLARD, KAYDEN ([id number]), supervising editor trailer CORBIN MIJARES ([id number]) on 01/29/2023 10:15:13 AM Referred By: HEBER Confirmed By:KAYDEN HADLEY MD
--- NOTE | 2023-01-28 11:56 | EDS_ITS ---
HPI <MARK Garcia - Last Filed: 01/28/23 14:55> History of Present Illness Chief Complaint: Chest Pain Narrative Narrative: Patient is a 62-year-old female with history of hypertension, migraine headaches, chronic back pain, anxiety, depression who presents to the emergency department with chest pressure, epigastric pain that started around 8 AM this morning. Patient states that after she was done eating breakfast, she felt pain in her epigastric area, chest pressure. She felt that her heartbeat was beating fast and she felt slightly dizzy. She states that this continued nonstop until she got out of [place] [address] and then drove here. She denies any shortness of breath. She denies any radiation to this pain to her back, to her left arm or jaw. Patient is unaware of her last stress test, echocardiogram. She has seen Dr. Mata textbook associate in the past in 2019. Patient denies any diaphoresis, nausea or vomiting, fever or chills. <Dr. Mina Yin MD - Last Filed: 01/28/23 13:14> History of Present Illness Informant: patient PFSH <MARK Garcia - Last Filed: 01/28/23 14:55> [facility] Home Medications alprazolam 0.5 mg tablet 0.5 mg PO BID 05/15/14 [History Last Taken 08/28/18 06:00] diltiazem HCl 180 mg capsule,extended release 24 hr 180 mg PO DAILY headaches 05/15/14 [History Last Taken 08/28/18 06:00] duloxetine 60 mg capsule,delayed release 60 mg PO BID 05/15/14 [History Last Taken 07/25/18] gabapentin 300 mg capsule 900 mg PO BIDCM 05/15/14 [History Last Taken 07/25/18] topiramate 200 mg tablet 400 mg PO BID 05/15/14 [History Last Taken 08/28/18 06:00] colestipol 1 gram tablet (Colestid) 3 tab PO DAILY 07/25/18 [History Last Taken 07/25/18] sumatriptan succinate 100 mg tablet (Imitrex) 100 mg PO X1 PRN Headache 07/25/18 [History Last Taken 07/24/18] Cholecalciferol (Vitamin D3) [Vitamin D3] 2,500 unit PO DAILY 08/27/18 [History Last Taken Unknown] multivitamin,di-oxle-lsshumez 27 mg-0.4 mg tablet (Therems-M) 1 tab PO DAILY 08/27/18 [History Last Taken Unknown] dicyclomine 10 mg capsule 20 mg PO .Q4-6H PRN abdominal pain #20 caps 05/09/19 [Rx Last Taken Unknown] sucralfate 1 gram tablet 1 gm PO 4X/DAY #28 tabs 05/09/19 [Rx Last Taken Unknown] Allergy/AdvReac Type Severity Reaction Status Date / Time venom-honey bee Allergy Unknown Verified 01/28/23 11:37 [bee venom (honey bee)] morphine AdvReac Nausea Verified 01/28/23 11:37 zolpidem [From Ambien] AdvReac Other Verified 01/28/23 11:37 Social History (System 04/25/19 @ 11:03 by Sara Bauer) Smoking Status: Current every day smoker tobacco type: cigarettes ROS <MARK Garcia - Last Filed: 01/28/23 14:55> ROS ED ROS Narrative Constitutional: Negative for fever, chills, weight loss, weakness Eyes: Negative for vision loss, vision change, double vision ENT: Negative for any sore throat, ear pain, congestion Cardiovascular: Negative for any tightness, palpitations. Positive chest pressure Respiratory: Negative for any cough, sputum production, hemoptysis, dyspnea, dyspnea on exertion, orthopnea Gastrointestinal: Negative for any abdominal pain, nausea, vomiting, diarrhea, constipation, blood in stool, blood in vomit. Positive for epigastric pain : Negative for any urinary frequency, dysuria, retention, blood in urine Muscle skeletal: Negative for any muscle joint pain, stiffness, myalgias, arthralgias, neck pain, back pain Neurological: Negative for any headache, syncope, numbness or tingling, di zziness Skin: Negative for any rashes, lumps, itching, abrasions, lacerations Psychiatric: Negative for any depression, anxiety, stress, suicidal ideation, homicidal ideation Hematologic: Negative for any easy bruising, excessive bruising, easy bleeding Allergies: Negative for any eczema, hives, rash EXAM <MARK Garcia - Last Filed: 01/28/23 14:55> Physical Exam Narrative Exam Narrative: Vital signs reviewed. HEET: Head normocephalic atraumatic, TMs clear bilaterally. Posterior pharynx is clear, moist mucous membranes. Nares clear bilaterally. Neck: Supple with no lymphadenopathy or tenderness. No signs of meningismus, negative jolt sign. Cardiac: Regular rate and rhythm no murmurs gallops or rubs, equal peripheral pulses bilaterally. Respiratory: Lungs clear to auscultation bilaterally. No chest tenderness. Abdomen: Soft, nontender, nondistended. No abdominal bruit or pulsatile masses. No hepatosplenomegaly Extremities: No peripheral edema, no signs of gross trauma or deformity. Active full range of motion of all extremities. Neuro: Cranial nerves II through XII intact, no focal neurological deficits. Skin: Clean dry and intact with no rash, purpura, petechiae, vesicles or pustules. Backs/flank: No CVA tenderness, no midline spinal tenderness, no deformity. Psych: Normal mood and affect. No SI, HI or acute psychosis. Const Vital Signs: 01/28/23 11:37 01/28/23 12:14 01/28/23 13:00 Temperature 96.1 F L Temperature Source Temporal Pulse Rate 89 84 Respiratory Rate 16 16 Blood Pressure 158/107 H 151/100 H Blood Pressure Mean 124 117 Pulse Ox 97 97 Oxygen Delivery Method Room Air Room Air Room Air 01/28/23 14:00 Temperature Temperature Source Pulse Rate 86 Respiratory Rate 18 Blood Pressure 155/104 H Blood Pressure Mean 121 Pulse Ox 96 Oxygen Delivery Method Room Air Positive well nourished and well developed General Appearance ED: well developed <Dr. Mina Yin MD - Last Filed: 01/28/23 13:14> Physical Exam Const Vital Signs: 01/28/23 11:37 01/28/23 12:14 01/28/23 13:00 Temperature 96.1 F L Temperature Source Temporal Pulse Rate 89 84 Respiratory Rate 16 16 Blood Pressure 158/107 H 151/100 H Blood Pressure Mean 124 117 Pulse Ox 97 97 Oxygen Delivery Method Room Air Room Air Room Air 01/28/23 14:00 Temperature Temperature Source Pulse Rate 86 Respiratory Rate 18 Blood Pressure 155/104 H Blood Pressure Mean 121 Pulse Ox 96 Oxygen Delivery Method Room Air MDM <MARK Garcia - Last Filed: 01/28/23 14:55> [facility] Lab Data Labs: Laboratory Results - last 24 hr 01/28/23 01/28/23 01/28/23 11:55 11:55 14:15 WBC 5.9 RBC 4.43 Hgb 14.6 Hct 44.7 MCV 100.9 H MCH 33.0 H MCHC 32.7 RDW Std Deviation 46.5 H RDW Coeff of [place] 12.3 Plt Count 238 MPV 10.0 Immature Gran % (Auto) 0.200 Neut % (Auto) 69.0 Lymph % (Auto) 21.7 [place] % (Auto) 7.8 Eos % (Auto) 0.8 Baso % (Auto) 0.5 Absolute Neuts (auto) 4.1 Absolute Lymphs (auto) 1.28 Nucleated RBC % 0 Sodium 146 H Potassium 3.8 Chloride 117 H Carbon Dioxide 21.0 Anion Gap 8 BUN 18 Creatinine 1.23 H Estim Creat Clear Calc 45.53 Est GFR (MDRD) Af Amer 57 L Est GFR (MDRD) Non-Af 47 L BUN/Creatinine Ratio 14.6 Glucose 109 H Calcium 9.2 Troponin I High Sens 12 15 Radiography Diagnostic Testing: Clinical Impression(s) from Imaging Studies Chest X-Ray 01/28/23 11:53 IMPRESSION: No radiographic evidence of acute cardiopulmonary disease. Electronically Signed: Breanna Orellana MD at 13:05 EDT , EKG Normal sinus rhythm, rate of 72: Attestation: I personally reviewed and interpreted this EKG as follows: Comments: Normal sinus rhythm, rate of 72 bpm, OH interval 168 ms, QRS duration 86 ms, no acute ST elevation, no acute infarct noted. Unchanged since 2019. Treatment and Re-Evaluation :: Patient appears well, patient appears nontoxic, vital signs are stable. Patient presents to the emergency department for complaints of epigastric pain been ongoing since 8 AM this morning. Patient's physical examination consistent with possible GERD however patient will receive a full cardiac work-up. Chest x-ray from the ER physician was unremarkable. Patient's EKG was unremarkable, patient's GI cocktail did have improvement in her pain and pressure in her mid epigastric area. Patient's laboratory values show normal CBC, patient's chemistries show slight elevation in sodium at 146, chloride is 117, creatinine is 1.23, and April 2019 it was 1.13, this is slightly elevated. GFR of 47, patient could be slightly dry. Patient's troponin was 12 which is negative. Patient is more calm, in no distress. Patient's second troponin was negative, do not believe that there is any acute ACS, [place], pneumonia. Patient is likely suffering from acid reflux secondary to the negative heart work-up as well as the HPI. Patient will follow-up with her GI physician, she will return for any worsening symptoms. She is happy with the plan of care, all questions answered. Patient stable for discharge. <Dr. Mina Yin MD - Last Filed: 01/28/23 13:14> [facility] Lab Data Attestation: I reviewed the patient's lab results. Labs: Laboratory Results - last 24 hr 01/28/23 01/28/23 01/28/23 11:55 11:55 14:15 WBC 5.9 RBC 4.43 Hgb 14.6 Hct 44.7 MCV 100.9 H MCH 33.0 H MCHC 32.7 RDW Std Deviation 46.5 H RDW Coeff of [place] 12.3 Plt Count 238 MPV 10.0 Immature Gran % (Auto) 0.200 Neut % (Auto) 69.0 Lymph % (Auto) 21.7 [place] % (Auto) 7.8 Eos % (Auto) 0.8 Baso % (Auto) 0.5 Absolute Neuts (auto) 4.1 Absolute Lymphs (auto) 1.28 Nucleated RBC % 0 Sodium 146 H Potassium 3.8 Chloride 117 H Carbon Dioxide 21.0 Anion Gap 8 BUN 18 Creatinine 1.23 H Estim Creat Clear Calc 45.53 Est GFR (MDRD) Af Amer 57 L Est GFR (MDRD) Non-Af 47 L BUN/Creatinine Ratio 14.6 Glucose 109 H Calcium 9.2 Troponin I High Sens 12 15 Radiography Diagnostic Testing: Clinical Impression(s) from Imaging Studies Chest X-Ray 01/28/23 11:53 IMPRESSION: No radiographic evidence of acute cardiopulmonary disease. Electronically Signed: Breanna Orellana MD at 13:05 EDT , Treatment and Re-Evaluation Comments:: Seen and evaluated independently and in conjunction with nurse prac titioner. Agree with notes above unless documented otherwise. Patient with lower substernal chest discomfort it started immediately after she finished eating breakfast. She states she has had a couple of other episodes in the past like this, maybe 2 or 3 total in the past year, but they always have happened in the middle of the night when she is lying down. She has a history of GERD and states she is on Protonix 40 mg twice daily for that. Never been diagnosed with an ulcer or anything else in her esophagus or stomach that she knows of but she is not sure. She denies any dyspnea. She states that a little worse when she takes a deep breath. On exam she is anxious. No epigastric tenderness or necessarily reproducible any chest tenderness. Lungs are clear to auscultation throughout, heart is regular no murmur. No calf tenderness or pedal edema EKG is unremarkable and does not appear to show any signs of STEMI or repolarization abnormality. Initial troponin is negative, she feels better after GI cocktail. I suspect this is GERD, we will obtain the second troponin to ensure that she is safe for discharge home. Discharge Plan Triage Chief Complaint: Chest Pain ED Midlevel Provider: Brandan Prieto ED Provider: Mina Yin Dx/Rx/DC Orders Clinical Impression: Chest pain due to GERD Instructions: ED GERD (Adult) Prescriptions: No Action diltiazem HCl 180 MG capsule 180 mg PO DAILY alprazolam 0.5 MG tablet 0.5 mg PO BID gabapentin 300 MG capsule 900 mg PO BIDCM topiramate 200 MG tablet 400 mg PO BID duloxetine 60 MG capsule 60 mg PO BID sumatriptan succinate [Imitrex] 100 MG tablet 100 mg PO X1 PRN (Reason: Headache) colestipol [Colestid] 1 GM tablet 3 tab PO DAILY multivitamin,zt-azds-tbbwnhqq [Therems-M] 1 TABLET tablet 1 tab PO DAILY Cholecalciferol (Vitamin D3) [Vitamin D3] 5,000 UNIT capsule 2,500 unit PO DAILY sucralfate 1 GM tablet 1 gm PO 4X/DAY Qty: 28 0RF dicyclomine 10 MG capsule 20 mg PO .Q4-6H PRN (Reason: abdominal pain) Qty: 20 0RF Primary Care Provider: Ibeth Barfield Referrals: Ibeth Barfield MD [Primary Care Provider] - 3-5 Days Disposition Disposition: Home, Self Care
[2023-01-28] MEDS: 0.9% Normal Saline 1,000 ML 1000 ML IV (12:09)
[2023-01-28] MEDS: Mag Hydrox/Al Hydrox/Simeth 30 ML UDC PO (12:10)
[2023-01-28 12:15] LABS: Absolute Lymphocyte Count 1.28 X10^3/uL (0.83-4.51); Absolute Neutrophil Count 4.1 X10^3/uL (2.0-7.7); Basophil# 0.03 X10^3/uL; Basophil% 0.5 % (0-1); Eosinophil# 0.05 X10^3/uL; Eosinophils% 0.8 % (0-5); Hematocrit 44.7 % (37-47); Hemoglobin 14.6 g/dL (12.0-15.0); Lymphocyte # 1.28 X10^3/ul (0.83-4.51); Lymphocyte % 21.7 % (19-41); Mean Corp Hgb Conc 32.7 g/dL (32-36); Mean Corpuscular Volume 100.9 fL (81-99); Monocyte# 0.46 X10^3/uL; Monocyte% 7.8 % (0-10); NRBC Flagged by Analyzer 0 % (0-5); Neutrophil # 4.07 X10^3/uL (2.7-7.7); Platelet Count 238 K/mm3 (150-450); RBC Distribution Width CV 12.3 % (11.6-14.6); RBC Distribution Width SD 46.5 fl (35.1-43.9); Red Blood Count 4.43 M/mm3 (4.2-5.4); White Blood Count 5.9 K/mm3 (4.4-11.0)
[2023-01-28 12:47] LABS: Anion Gap 8 (5-15); BUN 18 mg/dL (7-18); BUN/Creat Ratio 14.6 RATIO (10-20); Calcium,Total 9.2 mg/dL (8.5-10.1); Chloride 117 mmol/L (98-107); Creatinine, Serum 1.23 mg/dL (0.55-1.02); EST Glomerular Filtration Rate 47 mL/min (>60); Est Glom Filt Rate - Afr Amer 57 mL/min (>60); Estimated Creatinine Clearance 45.53 ml/min; Glucose 109 mg/dL (74-106); Potassium 3.8 mmol/L (3.5-5.1); Sodium Level 146 mmol/L (136-145); Troponin-I HS (w/2H Reflex) 12 pg/mL (3.0-54.0)
[2023-01-28 13:00] VITALS: BP 151/100; PULSE 84; RESP 16; O2SAT 97
[2023-01-28 14:00] VITALS: BP 155/104; PULSE 86; RESP 18; O2SAT 96
[2023-01-28 14:12] LABS: Reflex Troponin-HS? (from REC) Y
[2023-01-28 14:50] LABS: Troponin-I HS 15 pg/mL (3.0-54.0)
[2023-01-28 15:00] VITALS: BP 142/86; PULSE 83; RESP 16; O2SAT 97
[2023-01-28 15:20] VITALS: BP 135/84; PULSE 72; RESP 16; TEMP 37.1; O2SAT 97
== END 2023-01-28 15:24 | disposition home or self-care (01) ==
PROVIDERS: Nurse Practitioner; Emergency Provider Emergency Medicine; PCP Internal Medicine; Visit Provider Emergency Medicine
DX: R07.9 Chest pain, unspecified (principal); F17.210 Nicotine dependence, cigarettes, uncomplicated; I10 Essential (primary) hypertension; K21.9 Gastro-esophageal reflux disease without esophagitis; F41.9 Anxiety disorder, unspecified; G43.909 Migraine, unspecified, not intractable, without status migrainosus; Z79.899 Other long term (current) drug therapy; F32.A Depression, unspecified
CPT/HCPCS: 71045; 80048; 84484; 85025; 93005; 96360; 99285; J7030; A4216

== ENCOUNTER → 2023-04-04 | Outpatient (CLI) | payer BC, SELFPAY ==
[2023-04-04 14:01] LABS: Amphetamine Urine VISTA NEGATIVE (<1000 ng/mL); Barbiturate Urine VISTA NEGATIVE (< 200 ng/mL); Benzodiazepine Urine VISTA NEGATIVE (< 200 ng/mL); Cocaine Urine VISTA NEGATIVE (< 300 ng/mL); Ecstacy Urine VISTA NEGATIVE (< 500 ng/mL); Methadone Urine VISTA NEGATIVE (< 300 ng/mL); PCP Urine VISTA NEGATIVE (< 25 ng/mL); THC Urine VISTA NEGATIVE (< 50 ng/mL); Vista UDS pH Range 6
== END | disposition home or self-care (01) ==
LOC: LAB 13:03
PROVIDERS: PCP Internal Medicine; Referring Provider Anesthesiology Pain Medicine; Visit Provider Anesthesiology Pain Medicine
DX: F11.20 Opioid dependence, uncomplicated (principal)
CPT/HCPCS: 80307

== ENCOUNTER 2023-05-25 16:55 | Emergency (ER) | payer BC, SELFPAY ==
[2023-05-25 16:56] VITALS: BP 134/90; PULSE 89; RESP 16; TEMP 36.9; O2SAT 100; BMI 21.9
[2023-05-25 17:14] LABS: Mucous, Urine 0 SEEN /hpf (<or=2+); Red Blood Cells-Urine 0 SEEN /hpf (0-5); Squamous Epithelial Cells - UA 0 SEEN /hpf (5-10)
[2023-05-25 17:18] LABS: Absolute Lymphocyte Count 1.01 X10^3/uL (0.83-4.51); Absolute Neutrophil Count 3.7 X10^3/uL (2.0-7.7); Basophil# 0.03 X10^3/uL; Basophil% 0.6 % (0-1); Eosinophil# 0.08 X10^3/uL; Eosinophils% 1.5 % (0-5); Hematocrit 43.7 % (37-47); Hemoglobin 14.1 g/dL (12.0-15.0); Lymphocyte # 1.01 X10^3/ul (0.83-4.51); Lymphocyte % 19.2 % (19-41); Mean Corp Hgb Conc 32.3 g/dL (32-36); Mean Corpuscular Hgb 32.6 pg (27.0-32.0); Mean Corpuscular Volume 101.2 fL (81-99); Mean Platelet Vol. 9.7 fl (6.2-12.0); Monocyte# 0.44 X10^3/uL; Monocyte% 8.4 % (0-10); NRBC Flagged by Analyzer 0 % (0-5); Neutrophil # 3.68 X10^3/uL (2.7-7.7); Neutrophil % 70.1 % (47-70); Platelet Count 239 K/mm3 (150-450); RBC Distribution Width CV 12.4 % (11.6-14.6); RBC Distribution Width SD 46.6 fl (35.1-43.9); Red Blood Count 4.32 M/mm3 (4.2-5.4); White Blood Count 5.3 K/mm3 (4.4-11.0)
[2023-05-25 17:21] LABS: Color, Urine Yellow (Yellow); Glucose, Dipstick Normal (Normal); Ketone-Dipstick 5 mg/dl (Negative); Leukocyte Esterase-Dipstick 500 /ul (Negative); Nitrite-Dipstick Negative (Negative); Occult Blood-Urine Negative /ul (Negative); Protein-Dipstick 30 mg/dl (Negative); Urine Bilirubin Dipstick Negative (Negative); Urine Clarity Clear (Clear); Urine Urobilinogen Normal (Normal)
[2023-05-25 17:40] LABS: ALB/GLOB Ratio 1.2 RATIO (0.9-2.4); AST(SGOT) 12 U/L (15-37); Alanine Aminotransfer ALT/SGPT 55 U/L (13-56); Albumin, Serum 3.8 g/dL (3.2-5.0); Alkaline Phosphatase 115 U/L (45-117); Anion Gap 6 (5-15); BUN 21 mg/dL (7-18); BUN/Creat Ratio 15.9 RATIO (10-20); Calcium,Total 8.9 mg/dL (8.5-10.1); Chloride 115 mmol/L (98-107); Creatinine, Serum 1.32 mg/dL (0.55-1.02); EST Glomerular Filtration Rate 44 mL/min (>60); Est Glom Filt Rate - Afr Amer 53 mL/min (>60); Estimated Creatinine Clearance 42.43 ml/min; Globulin 3.2 g/dL (2.2-4.2); Glucose 145 mg/dL (74-106); Lipase 196 U/L (13-75); Potassium 3.3 mmol/L (3.5-5.1); Sodium Level 141 mmol/L (136-145)
[2023-05-25 17:47] LABS: Bacteria RARE /hpf (None Seen); White Blood Cells 5-10 SEEN /hpf (0-5)
[2023-05-25] MEDS: DiphenhydrAMINE 50 MG/ML Syringe 25 MG IV (18:30)
[2023-05-25] MEDS: 0.9% Normal Saline (1000mL) 1,000 ML 999 ML IV (18:30)
[2023-05-25] MEDS: Metoclopramide 10 MG/2 ML Vial IV (18:31)
--- NOTE | 2023-05-25 19:06 | CT_ITS ---
EXAM: CT ABDOMEN AND PELVIS WITH INTRAVENOUS CONTRAST CLINICAL INDICATION: llq abdominal pain TECHNIQUE: Helically acquired images were obtained of the abdomen and pelvis with intravenous contrast. This CT exam was performed using one or more of the following dose reduction techniques: automated exposure control, adjustment of the mA and/or kV according to patient size, and/or use of iterative reconstruction technique. CONTRAST: IV 100mL Isovue-300 COMPARISON: 05/09/2019 FINDINGS: LOWER THORAX: Unremarkable. Lung bases are clear. No cardiomegaly. No significant pericardial effusion. ABDOMEN: LIVER: Unremarkable. Homogeneous. No focal mass. GALLBLADDER AND BILE DUCTS: Gallbladder is not visualized and may be surgically absent. No intra- or extrahepatic biliary ductal dilation. PANCREAS: Unremarkable. No focal cystic or solid mass. SPLEEN: Unremarkable. Normal size without focal cystic or solid mass. ADRENALS: Unremarkable. No nodules. KIDNEYS AND URETERS: Unremarkable. Normal renal size and position. No hydronephrosis. STOMACH AND BOWEL: There is sigmoid diverticulosis with no evidence of diverticulitis. No stomach or bowel distention. PELVIS: APPENDIX: No evidence of acute appendicitis. BLADDER: Unremarkable. REPRODUCTIVE: Unremarkable as visualized. No mass. ABDOMEN and PELVIS: INTRAPERITONEAL SPACE: Unremarkable. No ascites or other fluid collection. No free air. BONES/JOINTS: Unremarkable. No suspicious lytic or blastic abnormality. SOFT TISSUES: Unremarkable. No discrete abdominal or pelvic wall hernia. VASCULATURE: Unremarkable. Abdominal aorta is non-dilated. LYMPH NODES: Unremarkable. No enlarged lymph nodes. CT/Abdomen/Pelvis W IV Cont ONLY IMPRESSION: No acute findings in the abdomen or pelvis. Electronically Signed: Wil Hines MD at 19:40 EDT ,
[2023-05-25] MEDS: Ketorolac 15 MG/ML Vial IV (20:56)
--- NOTE | 2023-05-25 20:57 | ED.VIS.GI ---
HPI HPI - GI History of Present Illness Chief Complaint: Diarrhea Narrative Narrative: 62-year-old female presenting with liquidy stool for the last 2 weeks. Denies any fevers or chills. No black or bloody stools. No recent antibiotics. She does have nausea without vomiting. States she developed a migraine which has had in the past. Having light sensitivity and sound sensitivity. Denies urinary or vaginal complaints. PFSH PFSH Home Medications alprazolam 0.5 mg tablet 0.5 mg PO BID 05/15/14 [History Last Taken 08/28/18 06:00] diltiazem HCl 180 mg capsule,extended release 24 hr 180 mg PO DAILY headaches 05/15/14 [History Last Taken 08/28/18 06:00] duloxetine 60 mg capsule,delayed release 60 mg PO BID 05/15/14 [History Last Taken 07/25/18] gabapentin 300 mg capsule 900 mg PO BIDCM 05/15/14 [History Last Taken 07/25/18] topiramate 200 mg tablet 400 mg PO BID 05/15/14 [History Last Taken 08/28/18 06:00] colestipol 1 gram tablet (Colestid) 3 tab PO DAILY 07/25/18 [History Last Taken 07/25/18] sumatriptan succinate 100 mg tablet (Imitrex) 100 mg PO X1 PRN Headache 07/25/18 [History Last Taken 07/24/18] Cholecalciferol (Vitamin D3) [Vitamin D3] 2,500 unit PO DAILY 08/27/18 [History Last Taken Unknown] multivitamin,mn-jdmh-drgzgfnd 27 mg-0.4 mg tablet (Therems-M) 1 tab PO DAILY 08/27/18 [History Last Taken Unknown] dicyclomine 10 mg capsule 20 mg (2 x 10 mg) PO .Q4-6H PRN abdominal pain #20 caps 05/09/19 [Rx Last Taken Unknown] sucralfate 1 gram tablet 1 gm PO 4X/DAY #28 tabs 05/09/19 [Rx Last Taken Unknown] dicyclomine 10 mg capsule 10 mg PO TID #14 caps 05/25/23 [Rx Last Taken Unknown] ondansetron 4 mg disintegrating tablet 4 mg PO Q8H PRN PRN Nausea #14 tabs 05/25/23 [Rx Last Taken Unknown] Allergy/AdvReac Type Severity Reaction Status Date / Time venom-honey bee Allergy Unknown Verified 05/25/23 16:56 [bee venom (honey bee)] morphine AdvReac Nausea Verified 05/25/23 16:56 zolpidem [From Ambien] AdvReac Other Verified 05/25/23 16:56 Social History Smoking Status: Current every day smoker tobacco type: cigarettes EXAM Physical Exam Const Vital Signs: 05/25/23 16:56 Temperature 98.5 F Temperature Source Temporal Pulse Rate 89 Respiratory Rate 16 Blood Pressure 134/90 H Blood Pressure Mean 104 Pulse Ox 100 Oxygen Delivery Method Room Air Positive well nourished General Appearance ED: NAD; Negative for pallor HEENT Reports moist mucous membranes normocephalic and atraumatic Eyes PERRL and EOMs intact bilaterally Neck no lymphadenopathy Resp normal respiratory effort Cardio regular rate and regular rhythm GI Palpation: tender LLQ Back/Spine no CVA tenderness Neuro CN's II-XII intact bilaterally and moves all extremities Sensorium / Orientation: alert Motor Exam: strength 5/5 throughout Psych mental status grossly normal Skin no wounds General Skin Exam: Negative for jaundice or pallor MDM MDM MDM Narrative Medical decision making narrative: 62-year-old female presenting with diarrhea and left lower quadrant abdominal pain for 2 weeks. Patient also has a migraine headache today. She was treated with Reglan, Benadryl. She is given IV fluids. CBC was obtained to assess white blood cell count, hemoglobin, platelets. CMP to assess liver function, renal function, electrolytes. To assess for pancreatitis. Urinalysis to assess for UTI. CBC and BMP relatively unremarkable. Creatinine slightly elevated at 1.32 her baseline. Potassium slight low at 3.3. Also is negative for infection. LFTs are unremarkable. Lipase 196 and minimally elevated. This is not consistent with acute pancreatitis. CT of the abdomen pelvis with IV contrast was obtained which shows no acute process. Patient counseled on all findings. Patient did take her home sumatriptan while in the ER for headache. She is also given a dose of Toradol. Patient will be given a prescription for Zofran and for Bentyl. Return precautions were discussed. Impression: 1. Abdominal pain 2. Nausea 3. Migraine 4. Diarrhea Lab Data Labs: Laboratory Results - last 24 hr 05/25/23 05/25/23 17:04 17:13 WBC 5.3 RBC 4.32 Hgb 14.1 Hct 43.7 MCV 101.2 H MCH 32.6 H MCHC 32.3 RDW Std Deviation 46.6 H RDW Coeff of [place] 12.4 Plt Count 239 MPV 9.7 Immature Gran % (Auto) 0.200 Neut % (Auto) 70.1 H Lymph % (Auto) 19.2 [place] % (Auto) 8.4 Eos % (Auto) 1.5 Baso % (Auto) 0.6 Absolute Neuts (auto) 3.7 Absolute Lymphs (auto) 1.01 Nucleated RBC % 0 Sodium 141 Potassium 3.3 L Chloride 115 H Carbon Dioxide 20.0 L Anion Gap 6 BUN 21 H Creatinine 1.32 H Estim Creat Clear Calc 42.43 Est GFR (MDRD) Af Amer 53 L Est GFR (MDRD) Non-Af 44 L BUN/Creatinine Ratio 15.9 Glucose 145 H Calcium 8.9 Total Bilirubin 0.20 AST 12 L ALT 55 Alkaline Phosphatase 115 Total Protein 7.0 Albumin 3.8 Globulin 3.2 Albumin/Globulin Ratio 1.2 Lipase 196 H Urine Color Yellow Urine Clarity Clear Urine pH 6.0 Ur Specific [place] 1.010 Urine Protein 30 H Urine Glucose (UA) Normal Urine Ketones 5 H Urine Occult Blood Negative Urine Nitrite Negative Urine Bilirubin Negative Urine Urobilinogen Normal Ur Leukocyte Esterase 500 H Urine RBC 0 SEEN Urine WBC 5-10 SEEN Ur Squamous Epith Cells 0 SEEN Urine Bacteria RARE Urine Mucus 0 SEEN Radiography Diagnostic Testing: Clinical Impression(s) from Imaging Studies Abdomen/Pelvis CT 05/25/23 19:06 IMPRESSION: No acute findings in the abdomen or pelvis. Electronically Signed: Wil Hines MD at 19:40 EDT , Discharge Plan Triage Chief Complaint: Diarrhea ED Provider: Blaise Diaz Dx/Rx/DC Orders Clinical Impression: Migraine headache Instructions: ED, Migraine (Classical), ED Vomiting and Diarrhea ... Prescriptions: New ondansetron 4 mg tablet,disintegrating 4 mg PO Q8H PRN PRN (Reason: Nausea) Qty: 14 0RF dicyclomine 10 mg capsule 10 mg PO TID Qty: 14 0RF No Action diltiazem HCl 180 MG capsule 180 mg PO DAILY alprazolam 0.5 MG tablet 0.5 mg PO BID gabapentin 300 MG capsule 900 mg PO BIDCM topiramate 200 MG tablet 400 mg PO BID duloxetine 60 MG capsule 60 mg PO BID sumatriptan succinate [Imitrex] 100 MG tablet 100 mg PO X1 PRN (Reason: Headache) colestipol [Colestid] 1 GM tablet 3 tab PO DAILY Therems-M 1 TABLET tablet 1 tab PO DAILY Cholecalciferol (Vitamin D3) [Vitamin D3] 5,000 UNIT capsule 2,500 unit PO DAILY sucralfate 1 GM tablet 1 gm PO 4X/DAY Qty: 28 0RF dicyclomine 10 MG capsule 20 mg PO .Q4-6H PRN (Reason: abdominal pain) Qty: 20 0RF Primary Care Provider: Ibeth Barfield Referrals: Ibeth Barfield MD [Primary Care Provider] - Disposition Disposition: Home, Self Care
[2023-05-25 20:58] VITALS: BP 116/60; PULSE 84; RESP 16; O2SAT 97
== END 2023-05-25 21:05 | disposition home or self-care (01) ==
PROVIDERS: Emergency Provider Student in an Organized Health Care Education/Training Program; PCP Internal Medicine; Visit Provider Student in an Organized Health Care Education/Training Program
DX: R19.7 Diarrhea, unspecified (principal); F17.210 Nicotine dependence, cigarettes, uncomplicated; G43.909 Migraine, unspecified, not intractable, without status migrainosus; R10.32 Left lower quadrant pain; R11.0 Nausea
CPT/HCPCS: 74177; 80053; 81001; 83690; 85025; 96361; 96374; 96375; 99284; J7030; Q9967; A4216

== ENCOUNTER → 2023-07-13 | Outpatient (CLI) | payer BC, SELFPAY ==
[2023-07-13 15:08] LABS: Hematocrit 45.2 % (37-47); Hemoglobin 14.1 g/dL (12.0-15.0); Mean Corp Hgb Conc 31.2 g/dL (32-36); Mean Corpuscular Hgb 32.4 pg (27.0-32.0); Mean Corpuscular Volume 103.9 fL (81-99); Mean Platelet Vol. 11.1 fl (6.2-12.0); Platelet Count 288 K/mm3 (150-450); RBC Distribution Width CV 12.8 % (11.6-14.6); RBC Distribution Width SD 49.5 fl (35.1-43.9); Red Blood Count 4.35 M/mm3 (4.2-5.4); White Blood Count 5.9 K/mm3 (4.4-11.0)
[2023-07-13 15:44] LABS: ALB/GLOB Ratio 1.2 RATIO (0.9-2.4); AST(SGOT) 17 U/L (15-37); Alanine Aminotransfer ALT/SGPT 25 U/L (13-56); Albumin, Serum 4.1 g/dL (3.2-5.0); Alkaline Phosphatase 91 U/L (45-117); Anion Gap 9 (5-15); BUN 14 mg/dL (7-18); BUN/Creat Ratio 12.1 RATIO (10-20); CRP < 2.90 mg/L (0.0-3.0); Calcium,Total 9.1 mg/dL (8.5-10.1); Chloride 112 mmol/L (98-107); Creatinine, Serum 1.16 mg/dL (0.55-1.02); EST Glomerular Filtration Rate 51 mL/min (>60); Est Glom Filt Rate - Afr Amer 61 mL/min (>60); Globulin 3.4 g/dL (2.2-4.2); Glucose 103 mg/dL (74-106); Potassium 3.8 mmol/L (3.5-5.1); Protein, Total 7.5 g/dL (6.4-8.2); Sodium Level 143 mmol/L (136-145)
[2023-07-13 15:54] LABS: Hemoglobin A1c 5.4 % (3.8-5.6)
[2023-07-13 16:13] LABS: Erythrocyte Sedimentation Rate 6 mm/hr (0-30)
== END | disposition home or self-care (01) ==
LOC: MTLAB 12:34
PROVIDERS: PCP Internal Medicine; Referring Provider Orthopaedic Surgery; Visit Provider Orthopaedic Surgery
DX: M46.90 Unspecified inflammatory spondylopathy, site unspecified (principal); R73.03 Prediabetes; M85.80 Other specified disorders of bone density and structure, unspecified site
CPT/HCPCS: 36415; 80053; 83036; 85027; 85652; 86140

== ENCOUNTER → 2023-08-07 | Outpatient (CLI) | payer BC, SELFPAY ==
--- NOTE | 2023-08-07 06:52 | MRI_ITS ---
STUDY: MRI LUMBAR SPINE WITH AND WITHOUT CONTRAST REASON FOR EXAM: Female, 63 years old. pain, NUMBNESS IN ARMS, HANDS AND FEET TECHNIQUE: Standardized fat and water weighted pulse sequences were obtained in the sagittal and axial planes. IV 12ml clariscan was administered for the contrast portion of the examination. COMPARISON: None FINDINGS: T12-L1: Normal endplates. Normal disc height, hydration and morphology. Normal bilateral facet joints. Normal central canal and bilateral lateral recesses. Normal bilateral intervertebral neural foramina. Normal lumbar lordosis. There is no substantial scoliosis. Normal conus medullaris that terminates at L1 L1-2: Normal endplates. Normal disc height, desiccation and tiny left paracentral/posterolateral disc protrusion. Normal bilateral facet joints. Normal central canal and bilateral lateral recesses. Normal bilateral intervertebral neural foramina. L2-3: Normal endplates. Normal disc height, desiccation and tiny central disc protrusion. Normal bilateral facet joints. Mild narrowing of the central canal. Normal bilateral lateral recesses. Normal bilateral intervertebral neural foramina. L3-4: Normal endplates. Normal disc height, desiccation and mild annular bulge with small central disc protrusion. Mild facet arthropathy. Mild narrowing of the central canal. Normal bilateral lateral recesses. Mild to moderate bilateral neural foraminal encroachment L4-5: Normal endplates. Narrowed disc space with desiccation and minor annular bulge with tiny central annular tear. [Mild facet arthropathy Normal central canal and bilateral lateral recesses. Moderate bilateral neural foraminal encroachment L5-S1: Normal endplates. Normal disc height, desiccation and minimal annular bulge with tiny central disc protrusion. Mild facet arthropathy.. Normal central canal and bilateral lateral recesses. Normal bilateral intervertebral neural foramina. Normal visualized sacral ala. Normal visualized paraspinous soft tissue structures. No enhancing lesions following contrast administration MRI/Spine Lumbar W/WO Contrast IMPRESSION: No evidence for acute fracture or other significant bony pathology. Mild spondylosis and multilevel spinal stenosis secondary to disc disease and bony hypertrophy most pronounced at L4-5 Findings as above Electronically Signed: Jarad De La Rosa MD at 19:05 EST Reading Location ID and State: [address] [place] [address] Tel , Service support ,
--- NOTE | 2023-08-07 06:52 | MRI_ITS ---
STUDY: MRI THORACIC SPINE WITH AND WITHOUT CONTRAST REASON FOR EXAM: Female, 63 years old. pain, DEMINERALIZATION TECHNIQUE: 12CC IV CLARISCAN was administered for the contrast portion of the examination. COMPARISON: None. FINDINGS: Normal kyphosis of the thoracic spine. There is no substantial scoliosis. No evidence for acute fracture or other significant bony pathology Disc space heights well-maintained although there is multilevel disc degeneration There is a very small central disc protrusion at T11-12 without significant spinal stenosis. There is also a smaller central central disc protrusion at T7-8. . Normal visualized thoracic cord. Normal conus medullaris that terminates at the . The soft tissue structures are unremarkable. There is no enhancing abnormality. MRI/Spine Thoracic W/WO Contrast IMPRESSION: Very small central disc protrusion at T11-12 and smaller at T7-8 without spinal stenosis or cord compression. No acute fracture or other significant bony pathology. No enhancing lesions following contrast administration Electronically Signed: Jarad De La Rosa MD at 16:22 EST ,
--- NOTE | 2023-08-07 06:52 | MRI_ITS ---
STUDY: MRI CERVICAL SPINE WITHOUT CONTRAST REASON FOR EXAM: Female, 63 years old. pain TECHNIQUE: Standardized fat and water weighted pulse sequences were obtained in the sagittal and axial planes. COMPARISON: None FINDINGS: Normal foramen magnum and brainstem-cervical cord junction. Normal craniovertebral junction. Normal anterior atlantoaxial articulation. Normal odontoid process. Normal cervical lordosis. Normal vertebral bodies and posterior osseous elements. C2-3: Normal endplates. Normal disc height, signal and morphology. Normal central canal and intervertebral neural foramina. C3-4: Normal endplates. Normal disc height, signal and morphology. Normal central canal and intervertebral neural foramina. C4-5: Normal endplates. Normal disc height, signal and morphology. Normal central canal and intervertebral neural foramina. C5-6: Normal endplates. Normal disc height, signal and minor bulging of the disc. Normal central canal and intervertebral neural foramina. C6-7: Normal endplates. Normal disc height, signal and small central disc protrusion. Minor narrowing of the central canal. C7-T1: Normal endplates. Normal disc height, signal and morphology. Normal central canal and intervertebral neural foramina. Normal cervical cord. Normal visualized soft tissue structures. MRI/Spine Cervical (Routine) IMPRESSION: No acute fracture or other significant bony pathology. Minor bulging of the disc at C5-6 and small central disc protrusion at C6-7 mildly narrowing the central canal. No significant spinal stenosis or cord compression. No focal lesions within the cord Electronically Signed: Jarad De La Rosa MD at 16:17 EST ,
== END | disposition home or self-care (01) ==
LOC: MRI 06:35
PROVIDERS: PCP Internal Medicine; Referring Provider Orthopaedic Surgery; Visit Provider Orthopaedic Surgery
DX: M54.9 Dorsalgia, unspecified (principal); G89.29 Other chronic pain
CPT/HCPCS: 72141; 72157; 72158; A9575

== ENCOUNTER → 2023-08-09 | Outpatient (CLI) | payer BC, SELFPAY ==
--- NOTE | 2023-08-09 10:06 | NM_ITS ---
CLINICAL: 63-year-old female with history of back discomfort. WHOLE BODY 99m Tc MDP RADIONUCLIDE BONE SCINTIGRAPHY COMPARISON: MRI of the cervical, thoracic and lumbar spine reports 08/07/2023 FINDINGS: Following the intravenous administration of 27.2 mCi of 99m Tc MDP, whole body bone images reveal: 1. Mild increased radiopharmaceutical concentration is noted in the right wrist articulation, the sternoclavicular and acromioclavicular compartments of both shoulders, the posterior compartments of both ankles, the third lumbar vertebra posteriorly on the right. 2. The remaining skeletal structures are scintigraphically unremarkable with normal-appearing renal images and urinary bladder activity identified. NM/Bone Scan Whole Body IMPRESSION: 1. The increase in tracer uptake defined in the right wrist, bilateral shoulder and ankle articulations, the third lumbar vertebra is most consistent with degenerative arthrosis. 2. There is no definitive scintigraphic evidence of trauma-fracture or findings consistent with skeletal metastatic disease on the current examination. Electronically Signed: Titus Mcclellan DO at 22:31 EST ,
== END | disposition home or self-care (01) ==
LOC: NM 10:02
PROVIDERS: PCP Internal Medicine; Referring Provider Orthopaedic Surgery; Visit Provider Orthopaedic Surgery
DX: M85.80 Other specified disorders of bone density and structure, unspecified site (principal)
CPT/HCPCS: 78306; A9503

== ENCOUNTER → 2024-06-17 | Outpatient (CLI) | payer OTHER, SELFPAY ==
--- NOTE | 2024-06-17 13:54 | CT_ITS ---
INDICATION: palpable mass over left upper jugular EXAMINATION: CT NECK WITH CONTRAST - CT Soft Tissue Neck W/ Contrast Injection TECHNIQUE: Helically acquired images were obtained of the neck following IV contrast. The protocol utilizes one or more of the following dose reduction techniques: automated exposure control, adjustment of mA and/or kV according to patient size,and/or use of iterative reconstruction technique. IV Contrast dosage and agent: RADIATION DOSAGE (If Supplied By Facility): CTDIvol = ( 10.79 ) mGy, DLP = ( 337.03 ) mGycm COMPARISON: FINDINGS: NASOPHARYNX: Unremarkable. SUPRAHYOID NECK: Unremarkable oropharynx, oral cavity, parapharyngeal space, and retropharyngeal space. INFRAHYOID NECK: Unremarkable larynx, hypopharynx, and supraglottis. THYROID: No focal lesions. SALIVARY GLANDS: Unremarkable. Earrings causing artifact limiting some images through the parotid glands. LYMPH NODES: No cervical or supraclavicular lymphadenopathy. VASCULAR STRUCTURES: Unremarkable. VISUALIZED PORTIONS OF THE ORBITS, PARANASAL SINUSES, MASTOID AIR CELLS AND SKULL BASE: Unremarkable. BONES: Unremarkable. THORACIC INLET: Clear lung apices. CT/Soft Tissue Neck WITH Contrast IMPRESSION: No space-occupying mass is identified. Electronically Signed: Antony Mena DO at 16:33 EDT Reading Location ID and State: [facility] / [place] Tel [phone], Service support ,
[2024-06-17 14:38] LABS: CREATININE FINGERSTICK < 1.0 mg/dL (0.55-1.02); EGFR FINGERSTICK > 60.0000 mL/min (>60)
== END | disposition home or self-care (01) ==
LOC: CT 13:47
PROVIDERS: PCP Internal Medicine
DX: R13.10 Dysphagia, unspecified (principal); R22.1 Localized swelling, mass and lump, neck
CPT/HCPCS: 70491; Q9967

== ENCOUNTER → 2024-08-14 | Outpatient (CLI) | payer OTHER, SELFPAY ==
--- NOTE | 2024-08-14 14:44 | CT_ITS ---
EXAM: CT ABDOMEN AND PELVIS WITH INTRAVENOUS CONTRAST CLINICAL INDICATION: LLQ PAIN/NAUSEA TECHNIQUE: Helically acquired images were obtained of the abdomen and pelvis with intravenous contrast. This CT exam was performed using one or more of the following dose reduction techniques: automated exposure control, adjustment of the mA and/or kV according to patient size, and/or use of iterative reconstruction technique. CONTRAST: IV 75mL [id number]-370 COMPARISON: 05/25/2023 FINDINGS: LOWER THORAX: Unremarkable. Lung bases are clear. No cardiomegaly. No significant pericardial effusion. ABDOMEN: LIVER: Unremarkable. Homogeneous. No focal mass. GALLBLADDER AND BILE DUCTS: Unremarkable. No calcified gallstones. No gallbladder distention or wall edema. No intra- or extrahepatic biliary ductal dilation. PANCREAS: Unremarkable. No focal cystic or solid mass. SPLEEN: Unremarkable. Normal size without focal cystic or solid mass. ADRENALS: Unremarkable. No nodules. KIDNEYS AND URETERS: Unremarkable. Normal renal size and position. No hydronephrosis. STOMACH AND BOWEL: There is sigmoid diverticulosis with no evidence of diverticulitis. No stomach or bowel distention. PELVIS: APPENDIX: No evidence of acute appendicitis. BLADDER: Unremarkable. REPRODUCTIVE: Unremarkable as visualized. No mass. ABDOMEN and PELVIS: INTRAPERITONEAL SPACE: Unremarkable. No ascites or other fluid collection. No free air. BONES/JOINTS: Unremarkable. No suspicious lytic or blastic abnormality. SOFT TISSUES: Unremarkable. No discrete abdominal or pelvic wall hernia. VASCULATURE: Unremarkable. Abdominal aorta is non-dilated. LYMPH NODES: Unremarkable. No enlarged lymph nodes. CT/Abdomen/Pelvis WITH Contrast IMPRESSION: No acute findings in the abdomen or pelvis. Electronically Signed: Wil Hines MD at 18:49 EST ,
[2024-08-14 15:52] LABS: CREATININE FINGERSTICK 1.1 mg/dL (0.55-1.02)
== END | disposition home or self-care (01) ==
PROVIDERS: PCP Internal Medicine; Visit Provider Nurse Practitioner
DX: R10.84 Generalized abdominal pain (principal); R11.2 Nausea with vomiting, unspecified
CPT/HCPCS: 74177; Q9967; A4216

== ENCOUNTER 2024-08-25 12:29 | Emergency (ER) | payer OTHER, SELFPAY ==
[2024-08-25 12:31] VITALS: BP 131/66; PULSE 95; RESP 15; TEMP 36; O2SAT 100
--- NOTE | 2024-08-25 12:42 | EKG12_ITS ---
Test Reason : CP Blood Pressure : */* mmHG Vent. Rate : 90 BPM Atrial Rate : 90 BPM P-R Int : 162 ms QRS Dur : 84 ms QT Int : 356 ms P-R-T Axes : 65 32 45 degrees QTcB Int : 435 ms Normal sinus rhythm Normal ECG Confirmed by LEONIE BULLARD, KAYDEN ([id number]), order editor CORBIN MIJARES ([id number]) on 08/27/2024 6:32:50 AM Referred By: YOLANDA Confirmed By: KAYDEN HADLEY MD
[2024-08-25 13:01] LABS: Absolute Lymphocyte Count 1.32 X10^3/uL (0.83-4.51); Basophil# 0.04 X10^3/uL; Basophil% 0.7 % (0-1); Eosinophil# 0.05 X10^3/uL; Eosinophils% 0.9 % (0-5); Hematocrit 43.7 % (37-47); Hemoglobin 14.2 g/dL (12.0-15.0); Lymphocyte # 1.32 X10^3/ul (0.83-4.51); Lymphocyte % 22.6 % (19-41); Mean Corp Hgb Conc 32.5 g/dL (32-36); Mean Corpuscular Hgb 32.3 pg (27.0-32.0); Mean Corpuscular Volume 99.3 fL (81-99); Mean Platelet Vol. 9.5 fl (6.2-12.0); Monocyte# 0.39 X10^3/uL; Monocyte% 6.7 % (0-10); NRBC Flagged by Analyzer 0 % (0-5); Neutrophil # 4.01 X10^3/uL (2.7-7.7); Neutrophil % 68.8 % (47-70); Platelet Count 265 K/mm3 (150-450); RBC Distribution Width CV 12.9 % (11.6-14.6); RBC Distribution Width SD 47.8 fl (35.1-43.9); White Blood Count 5.8 K/mm3 (4.4-11.0)
[2024-08-25 13:21] LABS: Anion Gap 6 (5-15); BUN 33 mg/dL (7-18); BUN/Creat Ratio 24.1 RATIO (10-20); Calcium,Total 9.4 mg/dL (8.5-10.1); Chloride 114 mmol/L (98-107); Creatinine, Serum 1.37 mg/dL (0.55-1.02); EST Glomerular Filtration Rate 42 mL/min (>60); Est Glom Filt Rate - Afr Amer 50 mL/min (>60); Glucose 110 mg/dL (74-106); Potassium 3.7 mmol/L (3.5-5.1); Sodium Level 141 mmol/L (136-145); Troponin-I HS (w/2H Reflex) 7 pg/mL (3.0-54.0)
[2024-08-25] MEDS: Mag Hydrox/Al Hydrox/Simeth 30 ML UDC PO (13:21)
[2024-08-25] MEDS: Famotidine 200 MG/20 ML MDV 20 MG in 0.9% Normal Saline (Pres. free 8 ML 300 MG IV (13:21)
[2024-08-25] MEDS: Lidocaine 2% Viscous15 ML UDC 15 ML PO (13:21)
--- NOTE | 2024-08-25 13:22 | RAD_ITS ---
STUDY: X-RAY CHEST REASON FOR EXAM: Female, 64 years old. Chest pain TECHNIQUE: Single AP portable view of the chest. COMPARISON: Comparison is made with prior study dated January 28, 2023. FINDINGS: EKG electrodes are seen. The lungs are clear and expanded. There is no demonstrated pleural abnormality. Normal size heart. Normal mediastinum and shaista. Normal visualized pulmonary arteries. Normal visualized aortic arch and descending thoracic aorta. Normal visualized thoracic spine. Once again, there is evidence of healed bilateral rib fractures. There is no demonstrated abnormality of the visualized soft tissue structures of the upper abdomen. RAD/Chest 1 View (Portable) IMPRESSION: No acute abnormality is seen. Electronically Signed: Will Arango MD at 14:02 EST ,
--- NOTE | 2024-08-25 14:12 | ED.VIS.CHEST ---
HPI History of Present Illness Chief Complaint: Chest Pain Detail of Chief Complaint: Tight sensation subxiphoid region that started 2 hours prior to presentatio Informant: patient Onset/Context/Timing Onset: Today and Hours Activity at onset: sudden Timing: Continuous Quality: Positive for Tightness Location: - (Epigastric/subxiphoid) Current Severity: Moderate Maximum Severity: Severe Worsened By: Movement of Torso and Palpation; Not Worsened By Exertion, Movement of Arm, Eating, Breathing or Coughing Relieved By: Nothing Associated Symptoms: Positive for Diaphoresis (With onset.); Negative for Nausea, Vomiting, Dyspnea, Cough, Fever, Lightheadedness, Acid Reflux or Palpitations Narrative Narrative: Patient is a 64-year-old woman with history of prediabetes, diverticulitis, hypertension who presents with tightness in the epigastric area without radiation. She endorses slight diaphoresis with the onset of the pain. She denies known history of coronary artery disease. She does have a history of reflux. This is different than her reflux pain. She denies black or maroon-colored stool. She has had no vomiting. She denies history of VTE. Denies leg pain, swelling or discoloration. She has no risk factors for VTE. Prior Similar Symptoms: No Recent Illness/Hospitalization: No CVD Risk Factors: Positive for Hypertension and Smoking (Quit approximately 8 years ago.); Negative for Diabetes, Hypercholesterolemia or Family History 1' </=55 PE Risk Factors: Negative for Recent Travel/Surgery, Recent Immobilization, Prior DVT or PE, Cancer or OCP + Smoking + >/=35 TAD Risk Factors: Positive for Hypertension; Negative for Marfan's Syndrome or Family History PFSH PFS Medical History Hypercholesteremia Esophageal reflux Disc displacement LLQ pain Dysphagia Home Medications ?Medication ?Instructions ?Recorded ?Last Taken ?Type diltiazem HCl 180 mg 180 mg PO DAILY headaches 05/15/14 08/28/18 06:00 History capsule,extended release 24 hr topiramate 200 mg tablet 400 mg PO BID 05/15/14 08/28/18 06:00 History naratriptan 2.5 mg tablet mg PO 07/13/23 Unknown History pantoprazole 40 mg tablet,delayed mg PO 07/13/23 Unknown History release promethazine 25 mg tablet mg PO 07/13/23 Unknown History topiramate 100 mg tablet mg PO 07/13/23 Unknown History cyclobenzaprine 10 mg tablet 10 mg PO HS 05/23/24 Unknown History loperamide 2 mg capsule 2 mg PO Q4H PRN 05/23/24 Unknown History dicyclomine 10 mg capsule 10 mg PO BID PRN abdominal pain 08/15/24 Unknown Rx #30 caps scopolamine base 1 mg over 3 days 1 patch transdermal Q3D PRN nausea 08/15/24 Unknown Rx transdermal patch #4 ea Allergy/AdvReac Type Severity Reaction Status Date / Time nabumetone (From Relafen) Allergy Intermediate Other Verified 08/25/24 12:31 venom-honey bee (bee venom Allergy Unknown Verified 08/25/24 12:31 (honey bee)) morphine AdvReac Nausea Verified 08/25/24 12:31 zolpidem (From Ambien) AdvReac Other Verified 08/25/24 12:31 Family History Mother Heart disease CVA (cerebral vascular accident) Father Cancer Sister Diabetes Surgical History History of cholecystectomy H/O tubal ligation H/O colonoscopy Social History Smoking Status: Former smoker quit date: 07/21/15 alcohol intake: current alcohol intake frequency: holidays/special occasions only substance use type: does not use ROS ROS ED Constitutional Constitutional ED: Denies chills, fever(s), subjective or sweats Eyes Eyes: Reports none ENT ENT ED: Denies rhinorrhea or sore throat Cardiovascular Cardiovascular: Reports as per HPI; Denies orthopnea or paroxysmal nocturnal dyspnea Respiratory/Chest Respiratory/Chest: Denies cough, dyspnea, dyspnea on exertion, orthopnea or paroxysmal nocturnal dyspnea Gastrointestinal Gastrointestinal: Reports abdominal pain and nausea; Denies constipation, diarrhea, melena or vomiting Genitourinary Genitourinary ED: Denies dysuria, hematuria or urinary frequency Musculoskeletal Musculoskeletal: Denies arthralgias, back pain or myalgias Integumentary Denies abscess, Abrasions or rash Psychiatric Psychiatric: Denies anxiety or depression Endocrine Endocrinology: Reports cold intolerance and heat intolerance Hematologic/Lymphatic Hematologic/Lymphatic: Denies easy bleeding or easy bruising EXAM Physical Exam Const Vital Signs: 08/25/24 12:31 08/25/24 13:30 08/25/24 14:30 Temperature 96.8 F L Temperature Source Temporal Pulse Rate 95 64 Respiratory Rate 15 18 Blood Pressure 131/66 H 139/79 H Blood Pressure Mean 87 99 Pulse Ox 100 98 Oxygen Delivery Method Room Air Room Air Room Air Positive well nourished and well developed General Appearance ED: well developed; Negative for NAD or pallor HEENT Reports TM's clear and moist mucous membranes normocephalic and atraumatic Tympanic Membrane ED: Yes TM's clear Eyes PERRL and EOMs intact bilaterally General Eye ED: Negative for pale conjunctiva or scleral icterus Neck no lymphadenopathy, supple and no JVD Chest Wall Negative for inspection of chest normal or palpation of chest normal Resp normal respiratory effort and clear to auscultation bilaterally Cardio regular rate, regular rhythm, S1 normal heart sound, S2 normal heart sound and no murmurs GI normal to inspection, nondistended, normoactive bowel sounds, soft to palpation, non-distended and no masses; Negative for non-tender or hepatosplenomegaly GI Narrative: Bowel sounds are normal. There is significant tenderness in the epigastric area. Negative clinical Dowd sign. Palpation: Negative for splenomegaly or mass Back/Spine no CVA tenderness Extremity normal to inspection General Extremety ED: Negative for edema or pulses abnormal General Extremity: Negative for edema or pulses abnormal Neuro oriented x3 and CN's II-XII intact bilaterally Sensorium / Orientation: awake and alert Psych mental status grossly normal Skin no rashes or lesions noted and no wounds General Skin Exam: Negative for jaundice or pallor Heart Score History: Slightly/Non-Suspicious ECG: Normal Age: >45 - <65 years Risk Factors: 1 or 2 Risk Factors Troponin: </= Normal Limit Score: 2 MDM MDM MDM Narrative Medical decision making narrative: Differential is cardiac versus noncardiac. More concerned this may represent GI versus cardiac. Because of her age and the fact she has risk factors we will obtain EKG with troponin and 2-hour troponin. CBC to assess white count differential. BMP to assess renal function. History & Record Review Additional record(s) reviewed:: Prior outpatient record (Most recent ER visit was August 2023 for exacerbation of chronic back pain. Office notes by Heber Milton were reviewed.), Prior ED visit (Most recent ER visit was for headache and seen May 2023. Was also seen January 2023 for chest pain that was determined to be GERD.) and Prior labs Lab Data Attestation: I reviewed the patient's lab results. Lab results narrative: CBC is unremarkable. MCV and MCH are slightly elevated. Maddi panel is remarked for creatinine of 1.37 with an estimated GFR 42. First troponin was 7. Second troponin is less than 3. Delta is -4. Labs: Laboratory Results - last 24 hr 08/25/24 08/25/24 12:55 15:00 WBC 5.8 RBC 4.40 Hgb 14.2 Hct 43.7 MCV 99.3 H MCH 32.3 H MCHC 32.5 RDW Std Deviation 47.8 H RDW Coeff of Bekah 12.9 Plt Count 265 MPV 9.5 Immature Gran % (Auto) 0.300 Neut % (Auto) 68.8 Lymph % (Auto) 22.6 Boyle % (Auto) 6.7 Eos % (Auto) 0.9 Baso % (Auto) 0.7 Absolute Neuts (auto) 4.0 Absolute Lymphs (auto) 1.32 Nucleated RBC % 0 Sodium 141 Potassium 3.7 Chloride 114 H Carbon Dioxide 21.0 Anion Gap 6 BUN 33 H Creatinine 1.37 H Est GFR (MDRD) Af Amer 50 L Est GFR (MDRD) Non-Af 42 L BUN/Creatinine Ratio 24.1 H Glucose 110 H Calcium 9.4 Troponin I High Sens 7 < 3 L Radiography Chest X-Ray - ED: 1 View and Read by ED Physician (Cardiac silhouette and size normal. Hilum is normal. Lung parenchyma is normal. Osseous structures are unremarkable. The chest x-ray is normal.) Diagnostic Testing: Clinical Impression(s) from Imaging Studies Chest X-Ray 08/25/24 13:22 IMPRESSION: No acute abnormality is seen. Electronically Signed: Will Arango MD at 14:02 EST , EKG Initial EKG: Attestation: I personally reviewed and interpreted this EKG as follows: Interpretation: Sinus Rhythm (Rate is 90. IL interval is 162 ms. QS duration 84 ms. QT duration 3 and 56 ms. 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, pneumonia Reason(s) pneumonia less likely: Positive for no infiltrate on CXR, no elevation in WBC count, no noted fever and symptoms not consistent with acute infection, aortic dissection Reason(s) Aortic dissection less likely:: Positive for normal vascular exam, no history of HTN, normal neurological exam, no significant risk factors for dissection, no widened mediastinum on CXR, pain not sudden onset, no ripping/tearing pain, no pain to back and blood pressure appropriate in ED and CHF Reason(s) CHF less likely: Positive for no significant peripheral edema, no orthopnea and no evidence of fluid overload on CXR Treatment and Re-Evaluation :: At the time of exit interview informing that she has elevated liver enzymes. Liver enzymes were not checked here. She has had a recent outpatient ultrasound through the [facility] which was negative. She is scheduled for an EGD. Discharge Plan Triage Chief Complaint: Chest Pain ED Provider: Richmond Gibson Dx/Rx/DC Orders Clinical Impression: Acute epigastric pain, Pre-diabetes, Hypertension, Dysphagia Instructions: GERD Lifestyle Changes, ED Chest Pain, Noncardiac Prescriptions: No Action pantoprazole 40 mg tablet,delayed release (DR/EC) PO Patient Comments: take 1 tablet by mouth twice a day ON AN EMPTY STOMACH, 1/2 HOUR BEFORE A MEAL promethazine 25 mg tablet PO Patient Comments: take 1/2 to 1 tablet by mouth every 6 hours if needed topiramate 100 mg tablet PO Patient Comments: take 2 tablets by mouth every morning and at bedtime naratriptan 2.5 mg tablet PO Patient Comments: take 1 tablet by mouth if needed AT THE ONSET OF HEADACHE, MAY REPEAT IN 4 HOURS IF NEEDED cyclobenzaprine 10 mg tablet 10 mg PO HS loperamide 2 mg capsule 2 mg PO Q4H PRN Rx Instructions: administer after each loose stool until symptoms controlled; do not exceed 8 mg per 24 hrs scopolamine base 1 mg over 3 days patch 3 day 1 patch transdermal Q3D PRN (Reason: nausea) Qty: 4 2RF dicyclomine 10 mg capsule 10 mg PO BID PRN (Reason: abdominal pain) Qty: 30 2RF diltiazem HCl 180 MG capsule 180 mg PO DAILY topiramate 200 MG tablet 400 mg PO BID Primary Care Provider: Ibeth Barfield Referrals: Ibeth Barfield MD [Primary Care Provider] - 3-5 Days if not improving Print Language: Japanese Disposition Disposition: Home, Self Care
[2024-08-25 14:30] VITALS: BP 139/79; PULSE 64; RESP 18; O2SAT 98
[2024-08-25 14:58] LABS: Reflex Troponin-HS? (from REC) Y
[2024-08-25 15:42] LABS: Troponin-I HS < 3 pg/mL (3.0-54.0)
[2024-08-25 15:51] VITALS: BP 118/84; PULSE 84; RESP 15; TEMP 36.3; O2SAT 97
== END 2024-08-25 15:59 | disposition home or self-care (01) ==
PROVIDERS: Emergency Provider Emergency Medicine; PCP Internal Medicine; Visit Provider Emergency Medicine
DX: R10.13 Epigastric pain (principal); K21.9 Gastro-esophageal reflux disease without esophagitis; R73.03 Prediabetes; Z87.891 Personal history of nicotine dependence; I10 Essential (primary) hypertension; R13.10 Dysphagia, unspecified; E78.00 Pure hypercholesterolemia, unspecified
CPT/HCPCS: 71045; 80048; 84484; 85025; 93005; 96365; 96366; 99284; A4216

== ENCOUNTER 2024-10-22 12:55 | Day surgery (SDC) | payer OTHER, SELFPAY ==
--- NOTE | 2024-10-20 12:36 | PAT.ANESEVAL ---
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 When Was Last Pacemaker Check QUESTION #4 FULL TEXT: You/Your Family Experience fever (hyperthermia) with Anesthesia Last Oral Intake Last Oral intake: Last Oral Intake NPO since Meds taken in AM with sips of water? 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 Has anyone observed you stop No 10/20/24 12:15 breathing during sleep? STOP Results Negative 10/20/24 12:15 QUESTION #5 FULL TEXT : Do you snore loudly (louder than talking or can be heard through closed doors)? 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 Specify any problems Hx of Preganancy in last 3 No 10/20/24 12:15 Months Nurse Filling Out Transfusion VCHRISTIN 10/20/24 12:15 & Questions: Date: 10/20/24 10/20/24 12:15 Time: 12:16 10/20/24 12:15 Patient unable to answer at this time (ie. 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: /Reproductive Hx- buffing and sueding machine operator Hx Now Gestational Age (in weeks): EDC: Hx Hx Para Hx Section SAB PFSH Medical History (Updated 10/20/24 @ 12:15 by Za Cid) Post-menopausal Anxiety Back pain Injury of head and neck History of ulceration Gastric reflux Former smoker Shortness of breath on exertion Hypercholesteremia Esophageal reflux Disc displacement LLQ pain Dysphagia Home Medications ?Medication ?Instructions ?Recorded ?Last Taken ?Type diltiazem HCl 180 mg 180 mg PO DAILY headaches 05/15/14 08/28/18 06:00 History capsule,extended release 24 hr naratriptan 2.5 mg tablet 2.5 mg PO PRN 07/13/23 Unknown History pantoprazole 40 mg tablet,delayed 40 mg PO BID 07/13/23 Unknown History release promethazine 25 mg tablet 12.5 mg PO PRN 07/13/23 Unknown History topiramate 100 mg tablet 200 mg PO BID 07/13/23 Unknown History cyclobenzaprine 10 mg tablet 10 mg PO HS 05/23/24 Unknown History loperamide 2 mg capsule 2 mg PO Q4H PRN LOOSE STOOLS 05/23/24 Unknown History dicyclomine 10 mg capsule 10 mg PO BID PRN abdominal pain 09/19/24 Unknown Rx #30 caps scopolamine base 1 mg over 3 days 1 patch transdermal Q3D PRN nausea 09/19/24 Unknown Rx transdermal patch #4 ea Allergy/AdvReac Type Severity Reaction Status Date / Time nabumetone (From Relafen) Allergy Intermediate Other Verified 10/20/24 11:49 venom-honey bee (bee venom Allergy Unknown Verified 10/20/24 11:49 (honey bee)) morphine AdvReac Nausea Verified 10/20/24 11:49 zolpidem (From Ambien) AdvReac Other Verified 10/20/24 11:49 Family History Mother Heart disease CVA (cerebral vascular accident) Father Cancer Sister Diabetes Surgical History (Updated 10/20/24 @ 12:15 by Za Cid) History of bunionectomy of both great toes History of cholecystectomy H/O tubal ligation H/O colonoscopy Social History Smoking Status: Former smoker quit date: 07/21/15 alcohol intake: current alcohol intake frequency: holidays/special occasions only substance use type: does not use Audit: Pertinent Findings Pertinent Findings EKG Perinent findings: 08/25/2024 normal sinus rhythm 90 bpm Recommendation Anesthesia Recommendation Anesthesia recommendation: OPTIMIZED for anesthesia
--- NOTE | 2024-10-22 13:09 | HP.PCM_ITS ---
HPI - General General Date of Admission: 10/22/24 Date of Service: 10/22/24 Chief Complaint: Abdominal pain and dysphagia HPI Narrative SAULO AVILA, is a 64 F who presents for the evaluation of abdominal pain, dysphagia. BGI established 9.18.24 w/ dysphagia, abdominal pain, nausea and feelings of fullness in her neck. Most recent scopes were in April [address] neck 10..24;No space-occupying mass is identified. OV 12.6.24 Pt continues to have issues with swallowing, nausea and abdominal pain. Nothing has been helpful for these symptoms. Her main concern today is the diffuse lower abdominal pain and the nausea. Every time she eats she if feeling nauseous but does not vomit daily. She feels like she has a tennis ball size mass in her abdomen that she feels moving. has Her PCP ordered CT abd/pelvis whim was without abnormality. CT abd/pelvis 12.24: No acute findings in the abdomen or pelvis. [facility] Medical History Post-menopausal Anxiety Back pain Injury of head and neck History of ulceration Gastric reflux Former smoker Shortness of breath on exertion Hypercholesteremia Esophageal reflux Disc displacement LLQ pain Dysphagia Home Medications ?Medication ?Instructions ?Recorded ?Last Taken ?Type diltiazem HCl 180 mg 180 mg PO DAILY headaches 08/28/18 06:00 History capsule,extended release 24 hr naratriptan 2.5 mg tablet 2.5 mg PO PRN 07/13/23 Unkno wn History pantoprazole 40 mg tablet,delayed 40 mg PO BID 3 Unknown History release promethazine 25 mg tablet 12.5 mg PO PRN 07/13/23 Unkn own History topiramate 100 mg tablet 200 mg PO BID 07/13/23 Unkno wn History cyclobenzaprine 10 mg tablet 10 mg PO HS 05/23/24 Unkn own History loperamide 2 mg capsule 2 mg PO Q4H PRN LOOSE STOOLS 05/23/24 Unknown History dicyclomine 10 mg capsule 10 mg PO BID PRN abdominal p ain 09/19/24 Unknown Rx #30 caps scopolamine base 1 mg over 3 days 1 patch transdermal Q3D PRN nausea 09/19/24 Unknown Rx transdermal patch #4 ea Allergy/AdvReac Type Severity Reaction Status Date / Time nabumetone (From Relafen) Allergy Intermediate Other Verified 10/20/24 11:49 venom-honey bee (bee venom Allergy Unknown Verified 10/20/24 11:49 (honey bee)) morphine AdvReac Nausea Verified 10/20/24 11:49 zolpidem (From Ambien) AdvReac Other Verified 10/20/24 11:49 Family History Mother Heart disease CVA (cerebral vascular accident) Father Cancer Sister Diabetes Surgical History History of bunionectomy of both great toes History of cholecystectomy H/O tubal ligation H/O colonoscopy Social History Smoking Status: Former smoker quit date: 07/21/15 alcohol intake: current alcohol intake frequency: holidays/special occasions only substance use type: does not use ROS Constitutional Constitutional: Denies fatigue, fever(s), poor appetite, weight gain or weight loss Gastrointestinal Gastrointestinal: Denies belching, bloating, change in bowel habits, change in stool character, chewing difficulty, coffee ground emesis, constipation, cr amping, diarrhea, dyspepsia, dysphagia, early satiety, excessive flatus, fecal incontinence, heartburn, hematemesis, hematochezia, hemorrhoids, loose stools, melena, nausea, odynophagia, rectal bleeding, tenesmus, vomiting or weight changes Physical Exam Const alert, oriented x3, no apparent distress and healthy appearing General Appearance: cooperative GI normal to inspection, nondistended, normoactive bowel sounds, soft to palpation, non-tender and non-distended Percussion: normal to percussion Rectal Exam: deferred Assessment & Plan Assessment/Plan (1) Dysphagia: (2) Diverticulitis: (3) Abdominal pain: PLAN: Plan Assessment and Plan Assessment and Plan (1) Abdominal pain: Plan: This is a 64 yo female pt here today for f/u. Pt has had issues with swallowing, nausea and abdominal pain for some time now. CT neck and abd/pelvis was without abnormalities. Her last scopes were in April 2024. SHe will undergo these procedures again with Dr. Rucker to re-evaluate her GI tract. I also prescribed dicyclomine for the pain. She will also use a scopolamine patch for nausea as needed. -EGD and colonoscopy -Sopalamine patch -Dicyclomine PRN (2) Dysphagia: Status: Acute Medications:
--- NOTE | 2024-10-22 13:16 | PCM.PRE.AN2 ---
ASA Classification* ASA Classification ASA Classification: 2 Assessment & Plan Anesthesia* Anesthesia Assessment Anesthesia Assessment: Discussed sedation and/or anesthesia options, risks, benefits, and alternatives with patient/parents/legal guardian/POA. Questions invited. The patient/parents/legal guardian/POA seems to understand and agrees to proceed with anesthesia plan. Reviewed the physical assessment, medical history, allergy history and patient home medications list prior to surgery/procedure/anesthetic and documented any changes. Performed airway and anesthesia risk assessments. Anesthesia Type Anesthesia Type: MAC Anesthesia Focused Assessment* Airway Assessment Mouth opens: >3 cm Mallampati Score: II Focused Labs Anesthesia Preop lab: CBC WBC 5.8 K/mm3 (4.4-11.0) 08/25/24 12:55 08/25/24 RBC 4.40 M/mm3 (4.2-5.4) 08/25/24 12:55 08/25/24 Hgb 14.2 g/dL (12.0-15.0) 08/25/24 12:55 08/25/24 Hct 43.7 % (37-47) 08/25/24 12:55 08/25/24 Plt Count 265 K/mm3 (150-450) 08/25/24 12:55 08/25/24 CHEMISTRY Potassium 3.7 mmol/L (3.5-5.1) 08/25/24 12:55 08/25/24 Sodium 141 mmol/L (136-145) 08/25/24 12:55 08/25/24 BUN 33 mg/dL (7-18) H 08/25/24 12:55 08/25/24 Creatinine 1.37 mg/dL (0.55-1.02) H 08/25/24 12:55 08/25/24 Glucose 110 mg/dL (74-106) H 08/25/24 12:55 08/25/24 TSH 1.16 uIU/mL (0.358-3.74) 11/10/20 16:03 11/10/20 COAG PT 12.4 SECONDS (11.7-14.9) 02/26/17 12:35 02/26/17 Pre-Assessment Diagnosis/Proposed Procedure Planned Operative Procedure(s): COLONOSCOPY/EGD Anesthesia History Anesthesia History - single stayer operator: Anesthesia History - single stayer operator Hx Hospitalization No 10/20/24 12:15 Any Problems With Anesthesia No 10/20/24 12:15 Cholinesterase deficiency No 10/20/24 12:15 You/Your Family Experience No 10/20/24 12:15 fever (hyperthermia) with Relationship Recent Exposure to Contagious No 08/28/18 07:39 Disease Does patient have nerve No 10/20/24 12:15 stimulator Patient instructed to have device shut off --Does patient have Pacemaker or ICD? When Was Last Pacemaker Check QUESTION #4 FULL TEXT: You/Your Family Experience fever (hyperthermia) with Anesthesia Last Oral Intake Last Oral intake: Last Oral Intake NPO since Meds taken in AM with sips of water? Meds patient instructed to take am of surgery PONV PONV - single stayer operator: PONV - single stayer operator Female Yes 10/20/24 12:15 HX of Motion Sickness No 10/20/24 12:15 HX of N/V After Surgery No 10/20/24 12:15 Non-Smoker Yes 10/20/24 12:15 Duration of Surgery greater No 10/20/24 12:15 than 60 minutes Number of Risk Factors 2 10/20/24 12:15 PONV Score Moderate Risk 10/20/24 12:15 Height & Weight Height & Weight: Anesthesia: Height & Weight Height 5 ft 6 in 08/25/24 12:31 Respiratory Assessment Respiratory Assessment - single stayer operator: Respiratory Tract Infection Hx - single stayer operator Hx Respiratory Tract Infection No 10/20/24 12:15 STOP Sleep Apnea STOP Sleep Apnea - single stayer operator: STOP Sleep Apnea - single stayer 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 Has anyone observed you stop No 10/20/24 12:15 breathing during sleep? STOP Results Negative 10/20/24 12:15 QUESTION #5 FULL TEXT : Do you snore loudly (louder than talking or can be heard through closed doors)? Tobacco Use History Tobacco Use History - single stayer operator: Tobacco Use History - single stayer operator Tobacco Use Smoking Status Former smoker 10/20/24 12:15 Hx Tobacco Use No 10/20/24 12:15 Years Smoking Packs Smoked per Day Smoking Cessation Date was Yes - quit smoking within 15 10/20/24 12:15 within the last 15 years years Hx Smoking Cessation Date 08/25/24 10/20/24 12:15 Hx Smoking Cessation No 10/20/24 12:15 Counseling Hematologic Medial History Hematologic Hx - single stayer operator: Hematologic Medical Hx - chro Hx of Blood Transfusion No 10/20/24 12:15 Hx of Transfusion in last 3 No 10/20/24 12:15 Months Date of Last Transfusion (if within last 3 months) Ever experience any problems No 10/20/24 12:15 with transfusion(s)? Specify any problems Hx of Preganancy in last 3 No 10/20/24 12:15 Months Nurse Filling Out Transfusion VCHRISTIN 10/20/24 12:15 & Questions: Date: 10/20/24 10/20/24 12:15 Time: 12:16 10/20/24 12:15 Patient unable to answer at this time (ie. confused, unrespo /Reproduction History /Reproductive History - single stayer operator: /Reproductive Hx- single stayer operator Hx Now Gestational Age (in weeks): EDC: Hx Hx Para Hx Section SAB PFSH Medical History Post-menopausal Anxiety Back pain Injury of head and neck History of ulceration Gastric reflux Former smoker Shortness of breath on exertion Hypercholesteremia Esophageal reflux Disc displacement LLQ pain Dysphagia Home Medications ?Medication ?Instructions ?Recorded ?Last Taken ?Type diltiazem HCl 180 mg 180 mg PO DAILY headaches 05/15/14 08/28/18 06:00 History capsule,extended release 24 hr naratriptan 2.5 mg tablet 2.5 mg PO PRN 07/13/23 Unknown History pantoprazole 40 mg tablet,delayed 40 mg PO BID 07/13/23 Unknown History release promethazine 25 mg tablet 12.5 mg PO PRN 07/13/23 Unknown History topiramate 100 mg tablet 200 mg PO BID 07/13/23 Unknown History cyclobenzaprine 10 mg tablet 10 mg PO HS 05/23/24 Unknown History loperamide 2 mg capsule 2 mg PO Q4H PRN LOOSE STOOLS 05/23/24 Unknown History dicyclomine 10 mg capsule 10 mg PO BID PRN abdominal pain 09/19/24 Unknown Rx #30 caps scopolamine base 1 mg over 3 days 1 patch transdermal Q3D PRN nausea 09/19/24 Unknown Rx transdermal patch #4 ea Allergy/AdvReac Type Severity Reaction Status Date / Time nabumetone (From Relafen) Allergy Intermediate Other Verified 10/20/24 11:49 venom-honey bee (bee venom Allergy Unknown Verified 10/20/24 11:49 (honey bee)) morphine AdvReac Nausea Verified 10/20/24 11:49 zolpidem (From Ambien) AdvReac Other Verified 10/20/24 11:49 Family History Mother Heart disease CVA (cerebral vascular accident) Father Cancer Sister Diabetes Surgical History History of bunionectomy of both great toes History of cholecystectomy H/O tubal ligation H/O colonoscopy Social History Smoking Status: Former smoker quit date: 07/21/15 alcohol intake: current alcohol intake frequency: holidays/special occasions only substance use type: does not use Review of Systems (Anesthesia) ROS Narrative System reviewed and no additional complaints, except as documented.
[2024-10-22 13:19] VITALS: BP 114/86; PULSE 85; RESP 16; TEMP 36.9; O2SAT 100; BMI 22.0
--- NOTE | 2024-10-22 13:45 | COLBX_PTH ---
PATIENT: SAULO AVILA I LOC: EN U#:[id number] AGE/SX: 64/F ROOM: RE10/22/[address]: Dr. Mariano Rucker DO : 1960 BED: DIS: 10/22/2024 SPEC #: [id number] RECD: 10/22/24 14:37 STATUS: CABRERA REDanya #: [id number] FLOYD: 10/22/24 13:[address]: Mariano Rucker DEPT: SURGICAL PATHOLOGY RECD BY: Irma Dunham ENTERED: 10/23/24 07:24 SP TYPE: COLON BX OTHR DR: Dr. Ibeth Barfield MD Tissues: A - Duodenum, NOS B - Gastric mucous membrane Procedures: Surgery Specimen Level IV HEADER OPERATION: Colonoscopy, EGD with biopsy PRE-OP DIAGNOSIS: Dysphagia, diverticulitis, abdominal pain TISSUE SUBMITTED: A- Duodenum biopsy, B- Gastric antrum biopsy MICROSCOPIC DIAGNOSIS A. Duodenum, biopsy: Fragments of small intestinal mucosa with focal blunting of villi, congestion and hemorrhage. B. Gastric antrum, biopsy: Mild gastritis. See microscopic description and comment. SJ. 10/24/2024 COMMENT B. The results of immunohistochemistry for Helicobacter pylori will be reported separately ([id number]). MICROSCOPIC DESCRIPTION Slides are reviewed. B. The specimen shows fragments of gastric mucosa with chronic inflammatory cell infiltrates in the lamina propria consisting of lymphocytes and plasma cells, consistent with mild chronic gastritis. GROSS DESCRIPTION A. Received in fixative is one container labeled with the patient's name and designated Duodenum biopsy. The specimen consists of two irregular fragments of light osborne soft tissue that in aggregate measure 1 x 0.3 x 0.2 cm. The specimen is totally submitted in one cassette. B. Received in fixative is one container labeled with the patient's name and designated Gastric antrum biopsy. The specimen consists of two irregular fragments of light osborne soft tissue that in aggregate measure 0.6 x 0.3 x 0.2 cm. The specimen is totally submitted in one cassette. CW.mr 10/23/2024 TC:3 CPT:66587h4
--- NOTE | 2024-10-22 13:45 | IMM_PTH ---
PATIENT: SAULO AVILA I LOC: EN U#:[id number] AGE/SX: 64/F ROOM: RE10/22/[address]: Dr. Mariano Rucker DO : 1960 BED: DIS: 10/22/2024 SPEC #: [id number] RECD: 10/23/24 08:29 STATUS: CABRERA REDanya #: [id number] FLOYD: 10/22/24 13:[address]: Mariano Rucker DEPT: IMMUNOHISTOCHEMISTRY RECD BY: Dante Bella ENTERED: 10/23/24 08:29 SP TYPE: IMMUNO OTHR DR: Dr. Ibeth Barfield MD Tissues: B - Gastric mucous membrane Procedures: H Pylori (initial) PHYSICIAN & INSTITUTION [place] [id number] SPECIMEN INFORMATION: Tissue Source: B- Gastric antrum biopsy Clinical Info: Dysphagia, diverticulitis, abdominal pain Specimen Number: [id number] CPT code: 06071 METHODOLOGY: Deparaffinized sections of prefer/formalin-fixed tissue or PAP/DQ stained slides are incubated with monoclonal/polyclonal antibodies/oligonucleotide probes. Localization is made via biotin free immunoperoxidase method. Appropriate controls are performed and reacted as expected. Results on target cell population are indicated in the following table: RESULTS: ANTIBODY / CLONE RESULT Block B H Pylori (polyclonal) negative These tests were developed and their performance characteristics determined by [facility]. They may not have been cleared or approved by the U.S. Food and Drug Administration. The FDA has determined that such clearance or approval is not necessary. The above immunohistochemical/dualISH markers are ordered and reviewed by the Pathologist. INTERPRETATION: B. Gastric antrum, biopsy: Negative for Helicobacter pylori organisms. FRANKIE. 10/24/2024
[2024-10-22 14:20] VITALS: BP 113/78; BP 114/86; PULSE 69; RESP 16; TEMP 36.3; O2SAT 100
[2024-10-22 14:25] VITALS: BP 114/86; BP 120/79; PULSE 73; RESP 16; O2SAT 98
--- NOTE | 2024-10-22 14:25 | OP.EGD_ITS ---
Patient Name: Michael Geiger Procedure Date: 10/22/2024 1:40 PM Date of : 1960 Age: 64 Procedure: Upper GI endoscopy Indications: Epigastric abdominal pain, Functional Dyspepsia, Dysphagia Providers: Mariano Rucker DO Referring MD: Mariano Rucker DO Medicines: Monitored Anesthesia Care Patient Profile: This is a 64 year old female. Refer to note in patient chart for documentation of history and physical. Patient has symptoms of chronic abdominal cramping, chronic abdominal distention and chronic epigastric abdominal pain. Complications: No immediate complications. Procedure: Pre-Anesthesia Assessment: - Prior to the procedure, a History and Physical was performed, and patient medications and allergies were reviewed. The patient is competent. The risks and benefits of the procedure and the sedation options and risks were discussed with the patient. All questions were answered and informed consent was obtained. Patient identification and proposed procedure were verified by the physician in the pre-procedure area. Mental Status Examination: alert and oriented. Airway Examination: normal oropharyngeal airway and neck mobility. Respiratory Examination: clear to auscultation. CV Examination: normal. Prophylactic Antibiotics: The patient does not require prophylactic antibiotics. Prior Anticoagulants: The patient has taken no anticoagulant or antiplatelet agents except for NSAID medication. ASA Grade Assessment: III - A patient with severe systemic disease. After reviewing the risks and benefits, the patient was deemed in satisfactory condition to undergo the procedure. The anesthesia plan was to use monitored anesthesia care (MAC). Immediately prior to administration of medications, the patient was re-assessed for adequacy to receive sedatives. The heart rate, respiratory rate, oxygen saturations, blood pressure, adequacy of pulmonary ventilation, and response to care were monitored throughout the procedure. The physical status of the patient was re-assessed after the procedure. After obtaining informed consent, the endoscope was passed under direct vision. Throughout the procedure, the patient's blood pressure, pulse, and oxygen saturations were monitored continuously. The Colonoscope was introduced through the mouth, and advanced to the second part of duodenum. The upper GI endoscopy was accomplished without difficulty. The patient tolerated the procedure well. Scope In: 1:50:49 PM Scope Out: 1:55:24 PM Total Procedure Duration Time 0 hours 4 minutes 35 seconds Findings: No gross lesions were noted in the entire esophagus. A small hiatal hernia was present. Suspect gastroparesis due to absence of peristalsis, patient symptoms and retained gastric contents. Biopsies were taken with a cold forceps for histology. Verification of patient identification for the specimen was done. Estimated blood loss was minimal. Biopsies were taken with a cold forceps for Helicobacter pylori testing. Verification of patient identification for the specimen was done. Estimated blood loss was minimal. Diffuse mildly erythematous mucosa without active bleeding and with no stigmata of bleeding was found in the duodenal bulb, in the first portion of the duodenum and in the second portion of the duodenum. Biopsies were taken with a cold forceps for histology. Verification of patient identification for the specimen was done. Estimated blood loss was minimal. Impression: - No gross lesions in the entire esophagus. - Small hiatal hernia. - Gastroparesis. Biopsied. - Erythematous duodenopathy. Biopsied. Recommendation: - Discharge patient to home. - Resume previous diet. - Continue present medications. - Await pathology results. Procedure Code(s): --- Professional --- 57399, Esophagogastroduodenoscopy, flexible, transoral; with biopsy, single or multiple CPT copyright 2021 [employer]. All rights reserved. The codes documented in this report are preliminary and upon chief credit officer review may be revised to meet current compliance requirements. Mariano Rucker DO 10/22/2024 2:25:11 PM This report has been signed electronically. Number of Addenda: 0 Note Initiated On: 10/22/2024 1:40 PM
--- NOTE | 2024-10-22 14:25 | OP.CCLET_ITS ---
10/22/2024 Ibeth Barfield [address] [place] [address] Re : Upper GI endoscopy procedure for Michael Williamsontracy Dear Dr. Barfield This procedure was performed on Tuesday, October 22, 2024. My impressions and recommendations are as follows: Impressions : - No gross lesions in the entire esophagus. - Small hiatal hernia. - Gastroparesis. Biopsied. - Erythematous duodenopathy. Biopsied. Recommendations : - Discharge patient to home. - Resume previous diet. - Continue present medications. - Await pathology results. My findings are described in the full procedure note, which is enclosed. If I can be of further assistance, please feel free to contact me at . Sincerely, Mariano Rucker, 10/22/2024 2:25:11 PM This report has been signed electronically.
--- NOTE | 2024-10-22 14:27 | OP.COLON_ITS ---
Patient Name: Michael Geiger Procedure Date: 10/22/2024 1:55 PM Date of : 1960 Age: 64 Procedure: Colonoscopy Indications: Generalized abdominal pain, Lower abdominal pain Providers: Mariano Rucker DO Referring MD: Mariano Rucker DO Medicines: Monitored Anesthesia Care Patient Profile: This is a 64 year old female. Refer to note in patient chart for documentation of history and physical. Patient has symptoms of chronic abdominal cramping, chronic abdominal distention and chronic epigastric abdominal pain. Last Colonoscopy: date unknown. Unable to locate last colonoscopy report. Complications: No immediate complications. Procedure: Pre-Anesthesia Assessment: - Prior to the procedure, a History and Physical was performed, and patient medications and allergies were reviewed. The patient is competent. The risks and benefits of the procedure and the sedation options and risks were discussed with the patient. All questions were answered and informed consent was obtained. Patient identification and proposed procedure were verified by the physician in the pre-procedure area. Mental Status Examination: alert and oriented. Airway Examination: normal oropharyngeal airway and neck mobility. Respiratory Examination: clear to auscultation. CV Examination: normal. Prophylactic Antibiotics: The patient does not require prophylactic antibiotics. Prior Anticoagulants: The patient has taken no anticoagulant or antiplatelet agents except for NSAID medication. ASA Grade Assessment: III - A patient with severe systemic disease. After reviewing the risks and benefits, the patient was deemed in satisfactory condition to undergo the procedure. The anesthesia plan was to use monitored anesthesia care (MAC). Immediately prior to administration of medications, the patient was re-assessed for adequacy to receive sedatives. The heart rate, respiratory rate, oxygen saturations, blood pressure, adequacy of pulmonary ventilation, and response to care were monitored throughout the procedure. The physical status of the patient was re-assessed after the procedure. After I obtained informed consent, the scope was passed under direct vision. Throughout the procedure, the patient's blood pressure, pulse, and oxygen saturations were monitored continuously. The Colonoscope was introduced through the anus and advanced to the terminal ileum. The colonoscopy was performed without difficulty. The patient tolerated the procedure well. The quality of the bowel preparation was adequate. The terminal ileum, ileocecal valve, appendiceal orifice, and rectum were photographed. Scope In: 1:57:34 PM Scope Withdrawal Time 0 hours 7 minutes 59 seconds Scope Out: 2:14:59 PM Total Procedure Duration Time 0 hours 17 minutes 25 seconds Findings: The perianal and digital rectal examinations were normal. The recto-sigmoid colon and sigmoid colon were significantly redundant. Multiple small and large-mouthed diverticula were found in the recto-sigmoid colon, sigmoid colon and descending colon. The terminal ileum appeared normal. Impression: - Redundant colon. - Diverticulosis in the recto-sigmoid colon, in the sigmoid colon and in the descending colon. - The examined portion of the ileum was normal. - No specimens collected. Recommendation: - Discharge patient to home. - Resume previous diet. - Continue present medications. - Repeat colonoscopy in 5 years for surveillance. Procedure Code(s): --- Professional --- 62164, Colonoscopy, flexible; diagnostic, including collection of specimen(s) by brushing or washing, when performed (separate procedure) CPT copyright 2021 [employer]. All rights reserved. The codes documented in this report are preliminary and upon loom mechanic review may be revised to meet current compliance requirements. Mariano Rucker DO 10/22/2024 2:27:19 PM This report has been signed electronically. Number of Addenda: 0 Note Initiated On: 10/22/2024 1:55 PM
--- NOTE | 2024-10-22 14:28 | OP.CCLET_ITS ---
10/22/2024 Ibeth Barfield [address] [place] [address] Re : Colonoscopy procedure for Michael [place] Dear Dr. Barfield This procedure was performed on Tuesday, October 22, 2024. My impressions and recommendations are as follows: Impressions : - Redundant colon. - Diverticulosis in the recto-sigmoid colon, in the sigmoid colon and in the descending colon. - The examined portion of the ileum was normal. - No specimens collected. Recommendations : - Discharge patient to home. - Resume previous diet. - Continue present medications. - Repeat colonoscopy in 5 years for surveillance. My findings are described in the full procedure note, which is enclosed. If I can be of further assistance, please feel free to contact me at . Sincerely, Mariano Friend, 10/22/2024 2:27:19 PM This report has been signed electronically.
--- NOTE | 2024-10-22 14:28 | PCM.POST.ANE ---
Anesthesia: Postop Eval I Current Vital Signs Temperature: 97.4 F Pulse Rate: 70 Blood Pressure: 113/78 Respiratory Rate: 16 Pulse Ox: 100 Oxygen Delivery Method: Room Air Assessment Airway patent: Yes Spontaneous unlabored respirations: Yes Mental status: Awake and Calm nausea: No Vomiting: No Anesthesia Complication: No Fluid Hydration Crystalloid volume administer (ml): 60 Total IV fluid infused: 60 Progress Note Anesthesia document: Postop Eval 1 completed: Yes
[2024-10-22 14:29] VITALS: BP 113/78; PULSE 70; RESP 16; TEMP 36.3; O2SAT 100
[2024-10-22 14:30] VITALS: BP 113/73; BP 114/86; PULSE 68; RESP 16; TEMP 36.4; O2SAT 100
[2024-10-22 14:47] VITALS: BP 114/86
--- NOTE | 2024-10-22 15:53 | PCM.POSTANE2 ---
Anesthesia Postop Eval I Sum Postop Eval Completion status Anesthesia document: Postop Eval 1 completed: Yes Anesthesia Postop Eval I Summary Anesthesia Postop Eval I Summary: Anesthesia Postop Eval I: Assessment Summary Airway patent Yes 10/22/24 14:29 [email or web address] Spontaneous unlabored Yes 10/22/24 14:29 [email or web address] respirations Mental status Awake,Calm 10/22/24 14:29 [email or web address] nausea No 10/22/24 14:29 [email or web address] Vomiting No 10/22/24 14:29 [email or web address] Anesthesia Postop Eval I: Fluid Summary Crystalloid volume administer 60 10/22/24 14:29 [email or web address] (ml) Colloids volume administered ( ml) Blood Product volume administered (ml) Total IV fluid infused 60 10/22/24 14:29 [email or web address] Anesthesia Postop Eval I: Summary Notes Anesthesia Complication No 10/22/24 14:29 [email or web address] Anesthesia Complication Comment: Post-operative progress note Anesthesia: Postop Eval II Evaluation Mental status: Awake Pain Level: 0 nausea: No Vomiting: No
== END 2024-10-22 15:06 | disposition home or self-care (01) ==
LOC: EN 12:56 → AC 13:00
PROVIDERS: PCP Internal Medicine; Referring Provider Internal Medicine; Visit Provider Internal Medicine Gastroenterology
PROC: 0DJD8ZZ Inspection of Lower Intestinal Tract, Via Natural or Artificial Opening Endoscopic (ICD-10-PCS; CPT 45378; principal; 2024-10-22 13:40)
DX: K29.70 Gastritis, unspecified, without bleeding (principal); K57.30 Diverticulosis of large intestine without perforation or abscess without bleeding; K44.9 Diaphragmatic hernia without obstruction or gangrene; E78.00 Pure hypercholesterolemia, unspecified; K21.9 Gastro-esophageal reflux disease without esophagitis; K31.84 Gastroparesis; R10.84 Generalized abdominal pain; R13.10 Dysphagia, unspecified; Z79.899 Other long term (current) drug therapy; Z87.891 Personal history of nicotine dependence
CPT/HCPCS: 43239; 45378; 88305; 88342; A4216; J2405

== ENCOUNTER 2025-09-06 14:28 | Emergency (ER) | payer OTHER, SELFPAY ==
[2025-09-06 14:29] VITALS: BP 150/100; PULSE 102; RESP 20; TEMP 37.2; O2SAT 100; BMI 22.6
[2025-09-06 14:44] LABS: Hematocrit 46.1 % (37-47); Hemoglobin 15.7 g/dL (12.0-15.0); Immature Granulocytes Count 0.050 X10^3/uL (0.0-0.0); Mean Corp Hgb Conc 34.1 g/dL (32-36); Mean Corpuscular Volume 96.2 fL (81-99); Mean Platelet Vol. 9.2 fl (6.2-12.0); NRBC Flagged by Analyzer 0 % (0-5); Platelet Count 277 K/mm3 (150-450); RBC Distribution Width CV 12.9 % (11.6-14.6); RBC Distribution Width SD 45.6 fl (35.1-43.9); Red Blood Count 4.79 M/mm3 (4.2-5.4); White Blood Count 13.7 K/mm3 (4.4-11.0)
[2025-09-06 15:15] LABS: Lipase 34 U/L (13-75)
--- NOTE | 2025-09-06 15:35 | EDS_ITS ---
HPI HPI - GI History of Present Illness Chief Complaint: Nausea/Vomiting/Diarrhea Informant: patient Abdominal Pain/Flank Pain Onset: Yesterday Context: Sudden Onset Timing: Continuous Quality: Sharp Location: RLQ and LLQ Worsened by: Nothing Relieved by: Nothing Nausea/Vomiting/Emesis GI Symptom: Positive for Nausea and Vomiting Onset: Yesterday Quality: Positive for Nonbilious; Negative for Blood streaks, Coffee ground or Hematemesis Diarrhea/Melena/Hematochezia GI Symptom: Positive for Diarrhea and Hematochezia Onset: Yesterday Stool Quality: Positive for BRB per rectum Associated Symptoms Associated Symptoms: Negative for Dysuria, Frequency or Hematuria Narrative Narrative: Patient presents with lower abdominal pain, nausea, vomiting, and diarrhea that began yesterday. Patient states she was having some diarrhea and noted some blood from her rectum. Patient states she also noted some blood clots. Patient states she has pain across her lower abdomen. Patient describes it as sharp. Patient states it is constant. Patient states it began rather suddenly. Patient states nothing makes it better and nothing makes it worse. Patient states she did have some nausea and vomiting yesterday. Patient denies any hematemesis or coffee-ground emesis. Patient also admits to some subjective fevers and chills. Patient also complains of migraine headache generalized weakness. Patient states she has a history of migraine headaches. Patient states this feels similar to prior migraine headaches. [facility] Medical History Post-menopausal Anxiety Back pain Injury of head and neck History of ulceration Gastric reflux Former smoker Shortness of breath on exertion Hypercholesteremia Esophageal reflux Disc displacement LLQ pain Dysphagia Home Medications ?Medication ?Instructions ?Recorded ?Last Taken ?Type diltiazem HCl 180 mg 180 mg PO DAILY headaches 10/22/24 History capsule,extended release 24 hr naratriptan 2.5 mg tablet 2.5 mg PO PRN 07/13/23 Unkno wn History pantoprazole 40 mg tablet,delayed 40 mg PO BID 3 10/22/24 History release promethazine 25 mg tablet 12.5 mg PO PRN 07/13/23 Unkn own History topiramate 100 mg tablet 200 mg PO BID 07/13/2310/22 History cyclobenzaprine 10 mg tablet 10 mg PO HS 05/23/24 Unkn own History loperamide 2 mg capsule 2 mg PO Q4H PRN LOOSE STOOLS 05/23/24 Unknown History ondansetron 4 mg disintegrating 4 mg PO Q8H PRN PRN Na usea #14 tabs 10/30/24 Unknown Rx tablet sucralfate 1 gram tablet 1 g PO 4X/DAY #28 tabs 10/30 Unknown Rx scopolamine base 1 mg over 3 days 1 patch transdermal Q3D PRN nausea 02/17/25 Unknown Rx transdermal patch #10 ea dicyclomine 10 mg capsule 10 mg PO BID PRN abdominal p ain 08/25/25 Unknown Rx #60 caps alprazolam 0.5 mg tablet 0.25 - 0.5 mg PO DAILY anxie ty 09/06/25 Unknown History ciprofloxacin HCl 500 mg tablet 500 mg PO BID #20 TABL ETS 09/06/25 Unknown Rx hydrocodone-acetaminophen 5-325mg 1 tab PO Q6H PRN PRN Pain 3 days 09/06/25 Unknown Rx 5mg-325mg #10 TABLETS metronidazole 500 mg tablet 500 mg PO Q6H #40 tabs Unknown Rx ondansetron 4 mg disintegrating 4 mg PO Q8H PRN PRN Na usea #10 tabs 09/06/25 Unknown Rx tablet Allergy/AdvReac Type Severity Reaction Status Date / Time nabumetone (From Relafen) Allergy Intermediate Other Verified 09/06/25 14:30 venom-honey bee (bee venom Allergy Unknown Verified 09/06/25 14:30 (honey bee)) zolpidem (From Ambien) AdvReac Other Verified 09/06/25 14:30 Family History Mother Heart disease CVA (cerebral vascular accident) Father Cancer Sister Diabetes Surgical History History of bunionectomy of both great toes History of cholecystectomy H/O tubal ligation H/O colonoscopy Social History Smoking Status: Former smoker quit date: 07/21/15 alcohol intake: current alcohol intake frequency: holidays/special occasions only substance use type: does not use ROS ROS ED Constitutional Constitutional ED: Reports chills, fever(s) and subjective Eyes Eyes: Denies blurry vision or change in vision ENT ENT ED: Denies rhinorrhea or sore throat Cardiovascular Cardiovascular: Denies chest pain or palpitations Respiratory/Chest Respiratory/Chest: Denies cough or dyspnea Gastrointestinal Gastrointestinal: Reports abdominal pain, diarrhea, nausea and vomiting Genitourinary Genitourinary ED: Denies dysuria or hematuria Musculoskeletal Musculoskeletal: Denies back pain or neck pain Integumentary Denies abscess or rash Neurologic Neurologic: Reports headache(s) and weakness Allergic/Immunologic Allergic/Immunologic ED: Denies mouth swelling or urticaria EXAM Physical Exam Const Vital Signs: 09/06/25 14:29 09/06/25 16:29 09/06/25 17:42 Temperature 98.9 F 98.6 F Temperature Source Oral Temporal Pulse Rate 102 H 90 79 Respiratory Rate 20 H 20 H 14 Blood Pressure 150/100 H 126/80 H 146/69 H Blood Pressure Mean 116 95 94 Pulse Ox 100 99 100 Oxygen Delivery Method Room Air Room Air Room Air 09/06/25 18:00 09/06/25 19:08 09/06/25 19:08 Temperature 98.4 F Temperature Source Oral Pulse Rate 86 88 85 Respiratory Rate 19 H 18 16 Blood Pressure 171/85 H 141/105 H 143/105 H Blood Pressure Mean 113 117 117 Pulse Ox 98 98 98 Oxygen Delivery Method Room Air Room Air Room Air Positive well nourished and well developed General Appearance ED: well developed and NAD HEENT Reports moist mucous membranes Neck supple and no JVD Resp normal respiratory effort and clear to auscultation bilaterally Cardio regular rhythm Rate: tachycardic GI non-distended Palpation: soft and tender LLQ, RLQ and suprapubic; Negative for guarding or rebound tenderness present Extremity General Extremety ED: Negative for edema or tenderness General Extremity: Negative for edema Neuro CN's II-XII intact bilaterally, moves all extremities and no sensory deficits noted Sensorium / Orientation: alert Motor Exam: strength 5/5 throughout Psych mental status grossly normal MDM MDM MDM Narrative Medical decision making narrative: Differential diagnosis includes bowel obstruction, perforation, diverticulitis, colitis, urinary tract infection, electrolyte abnormality, lower gastrointestinal bleeding, and viral illness. CBC will be obtained to assess for leukocytosis and anemia. Comprehensive metabolic profile will be obtained to assess for hepatic function, renal function, and electrolyte abnormality. Lipase will be obtained to assess for pancreatitis. Urinalysis will be obtained to assess for urinary tract infection and hematuria. CT scan of the abdomen pelvis will be obtained to assess for bowel obstruction, perforation, diverticulitis, and colitis. History & Record Review Additional record(s) reviewed:: Prior labs Lab Data Attestation: I reviewed the patient's lab results. Lab results narrative: CBC was reviewed. There is a mild leukocytosis of 13.7. Hemoglobin was slightly elevated at 15.7. The remainder is within normal limits. Comprehensive metabolic profile was reviewed. CO2 is slightly low at 19.2. Anion gap was normal. BUN was slightly elevated at 28 and creatinine was 1.42. These are consistent with previous results. Glucose was mildly elevated at 125. AST was slightly elevated at 41. Alkaline phosphatase was slightly elevated at 106. ALT was normal. Bilirubin was normal. Lipase was reviewed and was normal at 34. Stool for occult blood was positive. Urinalysis was reviewed. There is no evidence of urinary tract infection or hematuria. Labs: Laboratory Results - last 24 hr 09/06/25 09/06/25 14:39 19:04 WBC 13.7 H RBC 4.79 Hgb 15.7 H Hct 46.1 MCV 96.2 MCH 32.8 H MCHC 34.1 RDW Std Deviation 45.6 H RDW Coeff of Bekah 12.9 Plt Count 277 MPV 9.2 Immature Gran % (Auto) 0.400 Neut % (Auto) 73.5 H Lymph % (Auto) 19.3 Jenkins % (Auto) 6.1 Eos % (Auto) 0.4 Baso % (Auto) 0.3 Absolute Neuts (auto) 10.1 H Absolute Lymphs (auto) 2.65 Nucleated RBC % 0 Sodium 140 Potassium 4.7 Chloride 106 Carbon Dioxide 19.2 L Anion Gap 14 BUN 28 H Creatinine 1.42 H Estim Creat Clear Calc 37.96 L Est GFR (MDRD) Non-Af 42 L BUN/Creatinine Ratio 19.4 Glucose 125 H Calcium 9.7 Total Bilirubin 0.55 AST 41 H ALT 19 Alkaline Phosphatase 106 H Total Protein 7.8 Albumin 4.8 Globulin 3.0 Albumin/Globulin Ratio 1.6 Lipase 34 Urine Color Yellow Urine Clarity Clear Urine pH 7.0 Ur Specific [place] 1.010 Urine Protein Negative Urine Glucose (UA) Normal Urine Ketones 5 H Urine Occult Blood Negative Urine Nitrite Negative Urine Bilirubin Negative Urine Urobilinogen Normal Ur Leukocyte Esterase Negative Urine RBC 0 SEEN Urine WBC 0-5 SEEN Ur Squamous Epith Cells 0 SEEN Urine Bacteria 0 SEEN Urine Mucus 0 SEEN Radiography Diagnostic Testing: Clinical Impression(s) from Imaging Studies Abdomen/Pelvis CT 09/06/25 15:58 IMPRESSION: Circumferential wall thickening of the descending colon with surrounding inflammatory changes, suggestive of colitis. Mild bilateral hydronephrosis, of unclear etiology. Colonic diverticulosis. Reading Location: COUNTS [facility] 234 BEDS AT [facility] CT scan of the abdomen and pelvis was obtained. There is circumferential wall thickening of the descending colon and surrounding inflammatory changes suggestive of colitis. There is diverticulosis but no evidence of diverticulitis. This was interpreted by the radiologist. I also independently reviewed the images and did not see any free air or free fluid. Treatment and Re-Evaluation :: Patient was given IV fluids, Reglan, and Benadryl. Patient was still having headache after this. Patient was given injection of morphine. Patient was given a dose of Imitrex and a repeat dose of morphine. Patient was given a dose of Cipro and Flagyl here. Patient was given prescriptions for Cipro and Flagyl. Patient was also given a prescription for Zofran and a short course of [place]. Patient was instructed to follow-up with her primary care physician in 5 to 7 days. Patient and spouse understood and were agreeable with the plan. All questions were answered. Discharge Plan Triage Chief Complaint: Nausea/Vomiting/Diarrhea ED Provider: Juwan Bonilla Dx/Rx/DC Orders Clinical Impression: Colitis, Hypertension, Migraine headache Instructions: ED Understanding Colitis, ED, Migraine (Classical) Prescriptions: New hydrocodone-acetaminophen 5-325 mg tablet 1 tab PO Q6H PRN PRN (Reason: Pain) 3 Days Qty: 10 0RF ciprofloxacin HCl 500 mg tablet 500 mg PO BID Qty: 20 0RF metronidazole 500 mg tablet 500 mg PO Q6H Qty: 40 0RF ondansetron 4 mg tablet,disintegrating 4 mg PO Q8H PRN PRN (Reason: Nausea) Qty: 10 0RF No Action pantoprazole 40 mg tablet,delayed release (DR/EC) 40 mg PO BID Patient Comments: take 1 tablet by mouth twice a day ON AN EMPTY STOMACH, 1/2 HOUR BEFORE A MEAL promethazine 25 mg tablet 12.5 mg PO PRN Patient Comments: take 1/2 to 1 tablet by mouth every 6 hours if needed topiramate 100 mg tablet 200 mg PO BID Patient Comments: take 2 tablets by mouth every morning and at bedtime naratriptan 2.5 mg tablet 2.5 mg PO PRN Patient Comments: take 1 tablet by mouth if needed AT THE ONSET OF HEADACHE, MAY REPEAT IN 4 HOURS IF NEEDED cyclobenzaprine 10 mg tablet 10 mg PO HS loperamide 2 mg capsule 2 mg PO Q4H PRN (Reason: LOOSE STOOLS) Rx Instructions: administer after each loose stool until symptoms controlled; do not exceed 8 mg per 24 hrs diltiazem HCl 180 MG capsule 180 mg PO DAILY alprazolam 0.5 mg tablet 0.25 - 0.5 mg PO DAILY sucralfate 1 gram tablet 1 g PO 4X/DAY Qty: 28 0RF ondansetron 4 mg tablet,disintegrating 4 mg PO Q8H PRN PRN (Reason: Nausea) Qty: 14 0RF scopolamine base 1 mg over 3 days patch 3 day 1 patch transdermal Q3D PRN (Reason: nausea) Qty: 10 3RF dicyclomine 10 mg capsule 10 mg PO BID PRN (Reason: abdominal pain) Qty: 60 2RF Primary Care Provider: Ibeth Barfield Referrals: Ibeth Barfield MD [Primary Care Provider, Internal Medicine] - 3-5 Days Print Language: Angolan Disposition Disposition: Home, Self Care D/C Safety Score for UGIB Assessment Total Risk Score: 8 D/C Safety Score for LGIB Assessment Probability of safe discharge: 95% Total Risk Score: 8
[2025-09-06 15:44] LABS: AST(SGOT) 41 U/L (<=31); Alanine Aminotransfer ALT/SGPT 19 U/L (<=34); Albumin, Serum 4.8 g/dL (3.4-4.8); Alkaline Phosphatase 106 U/L (35-104); Anion Gap 14 (7-18); BUN 28 mg/dL (4-19); BUN/Creat Ratio 19.4 RATIO (10-20); Calcium,Total 9.7 mg/dL (7.6-11.0); Carbon Dioxide 19.2 mmol/L (20.0-29.0); Chloride 106 mmol/L (96-106); Estimated Creatinine Clearance 37.96 ml/min (50-250); Globulin 3.0 g/dL (2.2-4.2); Glucose 125 mg/dL (70-99); Potassium 4.7 mmol/L (3.5-5.1)
--- NOTE | 2025-09-06 15:58 | CT_ITS ---
PROCEDURE: ABDOMEN/PELVIS W IV CONT ONLY 09/06/2025 REASON FOR EXAM: ABDOMINAL PAIN TECHNIQUE: Procedure Code: [id number] Modality: CT Procedure: ABDOMEN/PELVIS W IV CONT ONLY Coronal and Sagittal reconstruction series were provided One or more dose reduction techniques were used (e.g., Automated exposure control, adjustment of the mA and/or kV according to patient size, use of iterative reconstruction technique. RADIATION DOSE SUMMARY: DLP: 668.93 mGycm FINDINGS: The lungs are clear. The heart size is unremarkable. There is right basilar atelectasis. The liver contour is unremarkable. There are no masses. Gallbladder is not clearly visualized and may be surgically absent. The pancreas and spleen are unremarkable. Both adrenal glands are unremarkable. There is trace bilateral hydronephrosis. No stones are identified. The bladder is unremarkable. The uterus is unremarkable. There is no bowel obstruction. There is colonic diverticulosis without evidence of diverticulitis. There are circumferential wall thickening of the descending colon with surrounding inflammatory changes. The appendix is unremarkable. There is no hiatal hernia. There is aortic atherosclerosis. There is no lymphadenopathy, ascites, or pneumoperitoneum. CT/Abdomen/Pelvis W IV Cont ONLY IMPRESSION: Circumferential wall thickening of the descending colon with surrounding inflam matory changes, suggestive of colitis. Mild bilateral hydronephrosis, of unclear etiology. Colonic diverticulosis. Reading Location: [id number]
--- OUTSIDE RECORDS SUMMARY | 2025-09-06 16:01 | XMS RPT_ITS | CCD ---
Author Organization [facility] Care Team Providers Care Occupational Therapy Professor Name Role Phone Akin Elliott MD Primary Care Provider Dr. Akin Elliott Primary Care Provider Dr. Akin Elliott Referring Provider [phone] Dr. Heber Milton Attending Provider Dr. Duncan Haney Attending Provider Akin Elliott MD Primary Care Provider Akin Elliott MD Primary Care Provider KRZYSZTOF CHAN Attending Unavailable SELF Referring Unavailable TALAMPAS, AKIN D Primary Care Unavailable HARRIETT ALEJO Referring Unavailable TALAMPAS, AKIN D Primary Care Unavailable HARRIETT ALEJO Admitting Unavailable HARRIETT ALEJO Attending Unavailable Tyler ENGINE MANAGER.MANAGER WIND, Carlee Unavailable [phone] Vladimir ENGINE MANAGER.BIOMASS PLANT TECHNICIAN, Cheyenne Unavailable Talampas, Akin D Primary Care Unavailable Talampas, Akin D Referring Unavailable Friend, Mariano Attending Unavailable Friend, Mariano Attending Unavailable Friend, Mariano Consulting Unavailable Talampas, Akin D Primary Care Unavailable Talampas, Akin D Referring Unavailable Talampas, Akin D Referring Unavailable Talampas, Akin D Primary Care Unavailable Nena Ferrer Attending Unavailable Carmela Prado Attending Unavailable Talampas, Akin D Primary Care Unavailable Talampas, Akin D Referring Unavailable Talampas, Akin D Primary Care Unavailable Richmond Gibson Attending Unavailable Talampas, Akin D Primary Care Unavailable Nean Ferrer Referring Unavailable Nena Ferrer Attending Unavailable Bridger SED HIGH SCHOOL TEACHER, Cecilia Attending Unavailable Talampas, Akin D Primary Care Unavailable IAN JARAMILLO Referring Unavailable Vladimir ENGINE MANAGER.BIOMASS PLANT TECHNICIAN, Cheyenne Unavailable [phone] Tyler ENGINE MANAGER.MANAGER WIND, Carlee Unavailable [phone] HUMAEV MARCOS Referring Unavailable TALAMPAS, AKIN D Primary Care Unavailable TALAMPAS, AKIN D Primary Care Unavailable BRIDGER, CECILIA M Referring Unavailable BRIDGER, CECILIA M Attending Unavailable TALAMPAS, AKIN D Primary Care Unavailable BRIDGER, CECILIA M Attending Unavailable TALAMPAS, AKIN D Primary Care Unavailable BRIDGER, CECILIA M Referring Unavailable TALAMPAS, AKIN D Primary Care Unavailable BRIDGER, CECILIA M Attending Unavailable TALAMPAS, AKIN D Primary Care Unavailable BRIDGER, CECILIA M Attending Unavailable TALAMPAS, AKIN D Primary Care Unavailable SELF Referring Unavailable TALAMPAS, AKIN D Attending Unavailable TALAMPAS, AKIN D Primary Care Unavailable TALAMPAS, AKIN D Attending Unavailable TALAMPAS, AKIN D Primary Care Unavailable BRIDGER, CCEILIA M Referring Unavailable TALAMPAS, AKIN D Primary Care Unavailable NIRAV RIVERA Attending Unavailable TALAMPAS, AKIN D Primary Care Unavailable BRIDGER, CECILIA M Attending Unavailable TALAMPAS, AKIN D Primary Care Unavailable TALAMPAS, AKIN D Primary Care Unavailable BRIDGER, CECILIA M Attending Unavailable TALAMPAS, AKIN D Primary Care Unavailable VLADIMIR, CHEYENNE Referring Unavailable HUMA, EV Attending Unavailable TALAMPAS, AKIN D Primary Care Unavailable BRIDGER, CECILIA M Referring Unavailable TALAMPAS, AKIN D Primary Care Unavailable BRIDGER, CECILIA M Referring Unavailable TALAMPAS, AKIN D Primary Care Unavailable BRIDGER, CECILIA M Referring Unavailable TALAMPAS, AKIN D Primary Care Unavailable Allergies Allergy Classification Reported Allergen(s) Allergy Type Date of Onset Reaction(s) Facility NSAIDs (1 source) nabumetone Drug Allergy 9 Diarrhea [facility] Work Phone: Opioid Agonists (1 source) Morphine Drug Allergy 7 Vomiting [facility] zolpidem (1 source) zolpidem Drug Allergy 3 Other: See Comments [facility] (20 sources) Morphine; Translations: [MORPHINE] Drug Allergy 7 Vomiting [facility] (20 sources) nabumetone; Translations: [NABUMETONE] Drug Allergy 9 Diarrhea [facility] Work Phone: (20 sources) bee stings [Other] Propensity to adverse reactions 5 [facility] Work Phone: (20 sources) zolpidem; Translations: [ZOLPIDEM] Drug Allergy 3 Other: See Comments [facility] Work Phone: (20 sources) Venom-Honey Bee; Translations: [VENOM-HONEY BEE] Drug Allergy 3 Unknown [facility] Work Phone: (2 sources) BEE VENOM PROTEIN (HONEY BEE); Translations: [BEE VENOM PROTEIN (HONEY BEE)] Propensity to adverse reactions to drug (disorder) 3 [facility] Repository (1 source) OTHER; Translations: [OTHER] Propensity to adverse reactions (disorder) 5 [facility] Repository (1 source) Morphine Drug Allergy 4 [facility] Repository (1 source) nabumetone Drug Allergy 5 [facility] Repository (1 source) zolpidem Drug Allergy 5 [facility] Repository (1 source) venom-honey bee Drug allergy (disorder) 5 [facility] Repository Medications Current Medications Medication Drug Class(es) Dates Sig (Normalized) Sig (Original) [id number] 200 actuat albuterol 0.09 mg/actuat metered dose inhaler (16 sources) beta2-Adrenergic Agonist Start: 01-02-2025 End: 02-12-2025 take 2 puff(s) by inhalation every four hours as needed for wheezing albuterol HFA (VENTOLIN HFA) 90 mcg/actuation inhaler Indications: Acute cough Inhale 2 puffs as instructed every 4 hours as needed for wheezing/shortnes s of breath. 1 each 1 02/12/2025 Active Start: 07-30-2023 End: 03-04-2024 take 2 puff(s) by inhalation every four hours as needed for wheezing albuterol HFA (VENTOLIN HFA) 90 mcg/actuation inhaler Indications: Acute cough Inhale 2 Puffs as instructed every 4 hours as needed for wheezing/shortness of breath. 1 Each 1 07/30/2023 03/04/2024 Discontinued Comment on above: Inhale 2 Puffs as in structed every 4 hours as needed for wheezing/shortness of breath. ALPRAZolam 0.5 mg oral tablet (20 sources) Benzodiazepine Start: 07-06-20 take 1 tablet by mouth every twenty-four hours as needed ALPRAZolam (XANAX) 0.5 mg tablet Take 0.5 mg by mouth at bedtime as needed. 07/06/2024 Active Start: 05-15-2014 End: 08-10-2023 take 1 tablet by mouth every twelve hours as needed ALPRAZolam (XANAX) 0.5 mg tablet Take 1 tablet by mouth twice daily as needed. (Dr. Herrera) 04/18/2016 08/10/2023 Discontinued (Discontinued by another Health Care Provider) Comment on above: Take 1 tablet by gilson th twice daily as needed. (Dr. Herrera) amoxicillin 875 mg oral tablet (2 sources) Penicillin-class Antibacterial Start: End: 5 take 1 tablet by mouth twice daily amoxicillin (AMOXIL) 875 mg tablet Take 1 tablet by mouth two times a day for 7 days. 14 tablet 05/15/2025 05/22/2025 Active amoxicillin 875 mg / clavulanate 125 mg oral tablet (9 sources) Penicillin-class Antibacterial Start: 5 End: 5 take 1 tablet by mouth twice daily amoxicillin-clavula tyrell potassium (AUGMENTIN) 875-125 mg per tablet Take 1 tablet by mouth two times a day for 7 days. 14 tablet 05/20/2025 05/27/2025 Active Start: 07-08-2024 End: 07-18-2024 take 1 tablet by mouth twice daily amoxicillin-clavulanate potassium (AUGMENTIN) 875-125 mg per tablet Indications: Acute non-recurrent pansinusitis Take 1 tablet by mouth two times a day for 10 days. 20 tablet 07/08/2024 07/16/2024 Discontinued Start: 08-03-2023 End: 08-10-2023 take 1 tablet by mouth twice daily amoxicillin-clavulanate potassium (AUGMENTIN) 875-125 mg per tablet Take 1 tablet by mouth two times a day for 7 days. 14 tablet 08/03/2023 08/10/2023 Start: 07-26-2022 End: 08-02-2022 take 1 tablet by mouth twice daily amoxicillin-clavulanic acid (AUGMENTIN) 875-125 mg per tablet Indications: Acute non-recurrent sinusitis, unspecified location Take 1 tablet by mouth twice daily for 7 days. 14 tablet 0 07/26/2022 08/02/2022 Active Comment on above: Take 1 tablet by gilson th twice daily for 7 days. Take 1 tablet by gilson th two times a day for 7 days. ascorbic acid 500 mg oral capsule (12 sources) Vitamin C take 1 capsule by mouth once daily ascorbic acid, vitamin C, 500 mg cap Take 1 capsule by mouth once daily. Active azithromycin 250 mg oral tablet (8 sources) Macrolide Antimicrobial Start: 08-04-20 End: 08-09-20 azithromycin (ZITHROMAX Z-LUAN) 250 mg tablet Take 2 tablets day one, then, 1 tablet daily until gone. 6 tablet 08/04/2024 08/09/2024 Active Start: 07-30-2023 azithromycin ( ZITHROMAX Z-LUAN) 250 mg tablet Indications: Cough , Acute cough As directed 6 tablet 0 07/30/2023 Active Comment on above: As directed benzonatate 100 mg oral capsule (9 sources) Non-narcotic Antitussive Start: take 100-200 mg by mouth every eight hours as needed benzonatate (TESSALON PERLES) 100 mg capsule Take 1-2 capsules by mouth three times a day as needed for cough. 30 capsule 05/08/2025 Active Start: 06-07-2023 take 100-200 mg by m outh every eight hours as needed benzonatate (TESSALON PERLES) 100 mg capsule Take 1-2 capsules by mouth three times a day as needed for cough. 60 capsule 0 06/07/2023 Active Comment on above: Take 1-2 capsules by mouth three times a day as needed for cough. cholecalciferol 0.025 mg oral tablet (20 sources) Vitamin D Start: 03-07-20 End: 02-13-20 take 1 tablet by mouth once daily cholecalciferol (VITAMIN D3) 1,000 unit tab tablet Indications: Vitamin D deficiency Take 1 tablet by mouth once daily. 90 tablet 3 02/12/2025 Active Start: 08-27-2018 End: 07-13-2023 Cholecalciferol (Vitamin D3) (Vitamin D3) 5,000 UNIT capsule Discontinued 2500 UNIT PO DAILY August 27, 2018 12:00am July 13, 2023 9:45am cyclobenzaprine hydrochloride 10 mg oral tablet (20 sources) Muscle Relaxant Start: 03-04-2024 End: 02-12-2025 take 1 tablet by mouth at bedtime as needed for pain cyclobenzaprine (FLEXERIL) 10 mg tablet Indications: Other chronic back pain , Cervicothoracic disc displacement Take 1 tablet by mouth at bedtime as needed for muscle spasm or pain. 30 tablet 5 02/12/2025 Active Start: 03-24-2022 End: 03-16-2023 take 1 tablet by mouth every twelve hours as needed cyclobenzaprine (FLEXERIL) 10 mg tablet Take 1 tablet by mouth twice daily as needed for muscle spasm or pain (may make drowsy, avoid driving and other activities until you know how it affects you). 30 tablet 03/24/2022 09/13/2022 Discontinued Comment on above: Take 1 tablet by gilson th twice daily as needed for muscle spasm or pain (may make drowsy, avoid driving and other activities until you know how it affects you). diclofenac sodium 50 mg delayed release oral tablet (20 sources) Nonsteroidal Anti-inflammatory Drug Start: End: take 1 tablet by mouth twice daily as needed diclofenac, EC, (VOLTAREN) 50 mg EC tablet Indications: DDD (degenerative disc disease), lumbar , Cervicalgia , Displacement of cervical intervertebral disc without myelopathy Take 1 tablet by mouth two times a day as needed. 60 tablet 2 05/04/2025 Active Start: 10-09-2023 End: 03-04-2024 take 1 tablet by mouth twice daily as needed diclofenac, EC, (VOLTAREN) 50 mg EC tablet Indications: DDD (degenerative disc disease), lumbar , Other chronic back pain , 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 , Cervicalgia , Displacement of cervical intervertebral disc without myelopathy , Cervicothoracic disc displacement Take 1 tablet by mouth two times a day as needed. 60 tablet 2 10/09/2023 03/04/2024 Discontinued Start: 03-16-2023 take 1 tablet by gilson th twice daily as needed diclofenac, EC, (VOLTAREN) 50 mg EC tablet Indications: DDD (degenerative disc disease), lumbar , Other chronic back pain , 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 , Cervicalgia , Displacement of cervical intervertebral disc without myelopathy , Cervicothoracic disc displacement Take 1 tablet by mouth twice daily as needed. 60 tablet 2 03/16/2023 Active Comment on above: Take 1 tablet by gilson th twice daily as needed. Take 1 tablet by gilson two times a day as needed. 24 hr dilTIAZem hydrochloride 180 mg extended release oral capsule (20 sources) Calcium Channel Eliceo Start: 014 End: take 1 capsule by mouth once daily dilTIAZem CD (CARTIA XT) 180 mg 24 hr capsule Indications: Migraine variant Take 1 capsule by mouth once daily. 90 capsule 3 02/12/2025 Active Comment on above: Take 1 capsule by mo [facility] once daily. doxycycline hyclate 100 mg oral tablet (2 sources) Tetracycline-class Drug Start: End: take 1 tablet by mouth twice daily doxycycline (VIBRA-TABS) 100 mg tablet Take 1 tablet by mouth two times a day for 7 days. 14 tablet 07/16/2024 07/23/2024 Active enteric contrast (will be provided with radiology test) (1 source) Start: End: enteric contrast (will be provided with radiology test) Indications: Generalized abdominal pain , Intractable vomiting For CT ABD/PEL W IVCON Routine order Administer, As Directed One Time Only, via Oral, Rectal, both Oral and Rectal, Enteric Tube, Stoma or Indwelling Catheter, Enteric Contrast as designated per enteric contrast guidelines 1 Each 08/14/2024 08/15/2024 Active [id number] 0.3 ml EPINEPHrine 1 mg/ml auto-injector (8 sources) alpha-Adrenergic Agonist, beta-Adrenergic Agonist, Catecholamine Start: End: EPINEPHrine (EPIPEN 2-LUAN) 0.3 mg/0.3 mL auto-injector Indications: Bee sting allergy Inject 0.3 mL intramuscularly as needed. 2 each 1 02/12/2025 Active fluticasone propionate 0.05 mg/actuat metered dose nasal spray (20 sources) Corticosteroid Start: End: take 2 spray(s) by mouth once daily fluticasone (FLONASE) 50 mcg/actuation nasal spray Indications: Acute cough , Nasal drainage , Ear fullness, bilateral Use 2 sprays in each nostril once daily. Rinse mouth after use. 1 each 02/12/2025 Active Comment on above: Use 2 Sprays in each nostril once daily. Rinse mouth after use. ibuprofen 800 mg oral tablet (20 sources) Nonsteroidal Anti-inflammatory Drug Start: End: take 1 tablet by mouth every eight hours as needed ibuprofen (MOTRIN) 800 mg tablet Take 1 tablet by mouth every 8 hours as needed for pain. Take with food. 30 tablet 1 05/04/2025 Active Comment on above: Take 1 tablet by gilson every 8 hours as needed for pain. Take with food. iv contrast (will be provided with radiology test) (2 sources) Start: End: iv contrast (will be provided with radiology test) Indications: Generalized abdominal pain , Intractable vomiting CT ABD/PEL -Inject, intravenously, once for 1 dose.No IV access, insert saline lock prior to the beginning of sedation, infusion, injection of imaging exam. Discontinue saline lock post exam. If Pt. has a central line or IVAD, may access for administration according to line specific nursing protocol. Once exam is complete flush line and de-access according to line specific nursing protocol in the CT contrast administration guidelines link. 1 Each 08/14/2024 08/15/2024 Active Start: 10-29-2023 End: 10-30-2023 inject 1 dose intravenously once iv contrast (will be provided with radiology test) MRI Brain Inject, intravenously, once for 1 dose.No IV access, insert saline lock prior to beginning of sedation, infusion, injection of imaging exam.Discontinue saline lock post exam. If Pt. has a central line or IVAD, may access for administration according to line specific nursing protocol.Once exam is complete flush line and de-access according to line specific nursing protocol in the MR contrast administration guidelines link 1 Each 0 10/29/2023 10/30/2023 Active Comment on above: MRI Brain Inject, in travenously, once for 1 dose.No IV access, insert saline lock prior to beginning of sedation, infusion, injection of imaging exam.Discontinue saline lock post exam. If Pt. has a central line or IVAD, may access for administration according to line specific nursing protocol.Once exam is complete flush line and de-access according to line specific nursing protocol in the MR contrast administration guidelines link loperamide hydrochloride 2 mg oral capsule (20 sources) Opioid Agonist Start: 023 End: 025 take 1 capsule by mouth every six hours as needed for diarrhea and diarrhea loperamide (ANTI-DIARRHEAL) 2 mg cap(s) Indications: Diarrhea, unspecified type Take 1 capsule by mouth four times a day as needed for diarrhea. 240 capsule 1 02/12/2025 Active Start: 09-14-2021 End: 03-19-2023 take 1 capsule by mouth every six hours as needed for diarrhea and diarrhea loperamide (ANTI-DIARRHEAL) 2 mg cap(s) Indications: Diarrhea, unspecified type Take 1 capsule by mouth four times daily as needed for diarrhea. 120 capsule 1 09/14/2021 12/27/2022 Discontinued Comment on above: Take 1 capsule by [facility] four times daily as needed for diarrhea. Take 1 capsule by [facility] four times a day as needed for diarrhea. naratriptan 2.5 mg oral tablet (20 sources) Serotonin-1b and Serotonin-1d Receptor Agonist Start: 07-13-2023 Naratriptan Active MG PO July 12, 2023 11:00pm Start: 11-03-2021 End: 05-04-2025 take 1 tablet by mouth every four hours as needed naratriptan (AMERGE) 2.5 mg tablet Take 1 tablet by mouth as needed. 2.5 mg at onset of headache, may repeat in 4 hours if needed 18 tablet 3 05/04/2025 Active Comment on above: Take 1 tablet by [facility] as needed. 2.5 mg at onset of headache, may repeat in 4 hours if needed pantoprazole 40 mg delayed release oral tablet (20 sources) Proton Pump Inhibitor Start: 07-13-2023 Pantoprazole Active MG PO July 12, 2023 11:00pm Start: 02-17-2022 End: 02-12-2025 take 1 tablet by mouth twice daily before mealtime, then take 4 tablets by mouth before mealtime pantoprazole DR (PROTONIX) 40 mg tablet Indications: Nausea , Gastroesophageal reflux disease, unspecified whether esophagitis present Take 1 tablet by mouth two times a day before meals at 6 am and 4 pm. Take on empty stomach, 1/2 hr before meal. 180 tablet 3 02/12/2025 Active Comment on above: Take 1 tablet by gilson th twice daily before meals (0600/1600). Take on empty stomach, 1/2 hr before meal. predniSONE 20 mg oral tablet (17 sources) Start: End: take 2 tablets by mouth once daily predniSONE (DELTASONE) 20 mg tablet Take 2 tablets by mouth once daily for 5 days. 10 tablet 05/08/2025 05/13/2025 Active Start: 09-15-2024 End: 09-27-2024 predniSONE (DELTASONE) 10 mg tablet Indications: Chronic sinusitis, unspecified location 3 tabs x 3 days, 2 tabs x 3 days, then 1 tab x3 days with food. 18 tablet 09/15/2024 09/27/2024 Start: 08-28-2024 End: 09-02-2024 take 1 tablet by mouth once daily predniSONE (DELTASONE) 20 mg tablet Indications: Acute non-recurrent sinusitis, unspecified location Take 1 tablet by mouth once daily for 5 days. 5 tablet 08/28/2024 09/02/2024 Active Start: 03-04-2024 End: 04-23-2024 predniSONE (DELTASONE) 5 mg tablet Take two tablets for one week then one tablet for one week. For back pain 21 tablet 0 03/04/2024 04/23/2024 Discontinued (Other) Start: 07-30-2023 predniSONE (DE LTASONE) 10 mg tablet Indications: Acute cough Take 40 mg x 3 days, 20 mg x 3 days, 10 mg x 3 days. Take with food, once daily. Take with breakfast 21 tablet 0 07/30/2023 Active Comment on above: Take 40 mg x 3 days, 20 mg x 3 days, 10 mg x 3 days. Take with food, once daily. Take with breakfast promethazine hydrochloride 25 mg oral tablet (20 sources) Phenothiazine Start: 07-13-2023 Promethazine Active MG PO July 12, 2023 11:00pm Start: 06-22-2021 End: 05-04-2025 take 12.5-25 mg by mouth every six hours as needed for nausea and nausea promethazine (PHENERGAN) 25 mg tablet Indications: Chronic nausea Take 0.5-1 tablets by mouth every 6 hours as needed. 30 tablet 1 05/04/2025 Active Comment on above: Take 0.5-1 tablets b y mouth every 6 hours as needed. rosuvastatin calcium 5 mg oral tablet (18 sources) HMG-CoA Reductase Inhibitor Star t: 03-11 End: 02-27 take 1 tablet by mouth once daily for hyperlipidemia rosuvastatin (CRESTOR) 5 mg tablet Indications: Hypercholesteremia Take 1 tablet by mouth once daily. For Cholesterol 30 tablet 11 03/16/2023 03/15/2024 Active Comment on above: Take 1 tablet by gilson th once daily. Take 1 tablet by gilson th once daily. For Cholesterol 72 hr scopolamine 0.0139 mg/hr transdermal system (15 sources) Anticholinergic Star t: 08-10 24 scopolamine (TRANSDERM-SCOP) patch 1.5 mg/72 hr (delivers 1 mg over 3 days) Indications: Dysphagia, unspecified type , Nausea and vomiting, unspecified vomiting type Apply 1 Patch as directed every 72 hours. From [facility] 08/28/2024 Active sodium picosulfate-magnesium oxide-citric acid (CLENPIQ) 10 mg-3.5 gram- 12 gram/175 mL oral solution (1 source) Star t: 05-30 End: 06-10 23 sodium picosulfate-magnesium oxide-citric acid (CLENPIQ) 10 mg-3.5 gram- 12 gram/175 mL oral solution Indications: Diarrhea, unspecified type Refer to instructions given by your provider 350 mL 0 06/18/2023 06/20/2023 Active Comment on above: Refer to instruction s given by your provider sulfamethoxazole 800 mg / trimethoprim 160 mg oral tablet (1 source) Dihydrofolate Reductase Inhibitor Antibacterial, Sulfonamide Antimicrobial Star t: 04-29 End: 07-11 take 1 tablet by mouth twice daily sulfamethoxazole-trime thoprim (BACTRIM DS) 800-160 mg per tablet Take 1 tablet by mouth two times a day for 7 days. 14 tablet 07/18/2024 07/25/2024 Active topiramate 100 mg oral tablet (20 sources) Star t: 11-27 Topiramate Active MG PO July 12, 2023 11:00pm Start: 11-03-2021 End: 02-12-2025 topiramate (TOPAMAX) 100 mg tablet Indications: Migraine variant TAKE 2 TABLETS TWICE A DAY IN THE MORNING AND AT BEDTIME 360 tablet 3 02/12/2025 Active Start: 05-15-2014 take 400 mg by mouth twice daily Topiramate Active 400 MG PO TWICE A DAY May 14, 2014 11:00pm Comment on above: TAKE 2 TABLETS TWICE A DAY IN THE MORNING AND AT BEDTIME Completed/Discontinued Medications Medication Drug Class(es) Dates Sig (Normalized) Sig (Original) acetaminophen 325 mg / HYDROcodone bitartrate 5 mg oral tablet (5 sources) Opioid Agonist Start: 05-02-2023 take 1 tablet by mouth every twelve hours HYDROcodone-acetamin ophen (NORCO) 5-325 mg per tablet Take 1 tablet by mouth every 12 (twelve) hours. 0 05/02/2023 Active Comment on above: Take 1 tablet by gilson every 12 (twelve) hours. Benzocaine (1 source) Standardized Chemical Allergen Start: 05-08-2024 End: 05-08-2024 1 [place], TOPICAL, DIRECTED, Starting on Leila 05/08/24 at 1230, Until Sun05/08/24 at 1629, Dosing as directed for intraprocedural use only - Pharmaceutical Waste: Aerosol -, Intraprocedure calcium chloride 0.0014 meq/ml / potassium chloride 0.004 meq/ml / sodium chloride 0.103 meq/ml / sodium lactate 0.028 meq/ml injectable solution (1 source) Start: 05-08-2024 End: 05-08-2024 take 30 mL intravenously every hour 30 mL/hr, INTRAVENOUS, CONTINUOUS, Starting on Leila 05/08/24 at 1130, Until Leila 05/08/24 at 1224, Preprocedure cephalexin 500 mg oral capsule (2 sources) Cephalosporin Antibacterial Start: 08-28-2024 End: 09-04-2024 take 1 capsule by mouth three times daily cephALEXin (KEFLEX) 500 mg capsule Indications: Acute non-recurrent sinusitis, unspecified location Take 1 capsule by mouth three times a day for 7 days. 21 capsule 08/28/2024 09/04/2024 cetirizine hydrochloride 10 mg oral tablet (5 sources) Histamine-1 Receptor Antagonist Start: 08-16-2023 End: 03-04-2024 take 1 tablet by mouth once daily for congestion cetirizine (ZYRTEC) 10 mg tablet Indications: Subacute sinusitis, unspecified location , Acute cough Take 1 tablet by mouth once daily. for nasal drainage and congestion 30 tablet 0 08/16/2023 03/04/2024 Discontinued Comment on above: Take 1 tablet by [facility] once daily. for nasal drainage and congestion cholecalciferol, vitamin D3, (VITAMIN D3 ORAL) (20 sources) End: 08-10-2023 take 1 capsule by mouth once daily cholecalciferol, vitamin D3, (VITAMIN D3 ORAL) Take 1 capsule by mouth once daily. 08/10/2023 Discontinued (Discontinued by Patient) take 1 capsule by mouth once [place] [facility] cholecalciferol, vitamin D3, (VITAMIN D3 ORAL) Take 1 capsule by mouth once daily. 0 Active Comment on above: Take 1 capsule by [facility] once daily. sugar-free cholestyramine resin 4000 mg powder for oral suspension (20 sources) Bile Acid Sequestrant Start: 03-04-20 End: 03-04-20 take 4 g by mouth three times daily at mealtime cholestyramine-aspar tame (CHOLESTYRAMINE LIGHT) 4 gram powder Take 4 g by mouth three times a day with meals. 1080 g 3 03/04/2024 08/01/2024 Discontinued Start: 12-03-2020 End: 09-13-2022 take 1 dose by mouth once PREVALITE 4 gram packet Take 1 Packet by mouth one time only. 12/03/2020 09/13/2022 Discontinued (Lack of Efficacy) Comment on above: Take 1 Packet by glison th one time only. colestipol hydrochloride 1000 mg oral tablet (5 sources) Bile Acid Sequestrant Start: 2017 End: 2022 take 1 tablet by mouth once daily Colestipol (Colestid) 1 GM tablet Discontinued 3 TABLET PO DAILY July 25, 2018 12:00am July 13, 2023 9:45am 12 hr dextromethorphan polistirex 6 mg/ml extended release suspension (5 sources) Uncompetitive S-bcgzeu-Z-aspartate Receptor Antagonist, Sigma-1 Agonist Start: 2022 End: 2023 take 10 mL by mouth twice daily dextromethorphan polistirex ER (DELSYM) 30 mg/5 mL oral liquid Indications: Subacute sinusitis, unspecified location , Acute cough Take 10 mL by mouth two times a day. 148 mL 0 08/16/2023 03/04/2024 Discontinued Comment on above: Take 10 mL by mouth two times a day. dicyclomine hydrochloride 10 mg oral capsule (20 sources) Anticholinergic Start: 2022 dicyclomine (BENTYL) 10 mg capsule THREE TIMES A DAY 90 capsule 2 05/28/2023 Active Start: 05-25-2023 End: 07-13-2023 take 10 mg by mouth three times daily Dicyclomine Discontinued 10 MG PO THREE TIMES A DAY May 24, 2023 11:00pm July 13, 2023 9:46am Start: 05-09-2019 End: 07-13-2023 take 20 mg by mouth every four to six hours Dicyclomine Discontinued 20 MG PO .Q4-6H May 09, 2019 7:44pm July 13, 2023 9:46am Comment on above: THREE TIMES A DAY diphenhydrAMINE (1 source) Histamine-1 Receptor Antagonist Start: 024 End: 024 12.5-50 mg, INTRAVENOUS, DIRECTED, Starting on Leila 05/08/24 at 1230, Until Leila 05/08/24 at 1629, DOSING DIRECTED BY PHYSICIAN FOR PROCEDURAL SEDATION ONLY, Intraprocedure DULoxetine 60 mg delayed release oral capsule (20 sources) Serotonin and Norepinephrine Reuptake Inhibitor Start: 014 End: take 1 capsule by mouth twice daily DULoxetine (CYMBALTA) 60 mg capsule Indications: Other depression Take 1 capsule by mouth twice daily. (Dr. Herrera) 04/18/2016 08/10/2023 Discontinued (Discontinued by another Health Care Provider) Comment on above: Take 1 capsule by [facility] twice daily. (Dr. Herrera) famotidine 40 mg oral tablet (3 sources) Histamine-2 Receptor Antagonist Start: End: take 1 tablet by mouth once daily famotidine (PEPCID) 40 mg tablet Take 1 tablet by mouth once daily. 90 tablet 1 04/07/2024 04/17/2024 Discontinued 1 ml fentaNYL 0.05 mg/ml injection (1 source) Opioid Agonist Start: End: 25-100 mcg, INTRAVENOUS, DIRECTED, Starting on Leila 05/08/24 at 1230, Until Leila 05/08/24 at 1629, DOSING DIRECTED BY PHYSICIAN FOR PROCEDURAL SEDATION ONLY, Intraprocedure gabapentin 300 mg oral capsule (20 sources) Anti-epileptic Agent Start: End: gabapentin (NEURONTIN) 300 mg capsule Indications: Migraine variant , Displacement of cervical intervertebral disc without myelopathy Take 3 capsules in a.m., 4 capsules in p.m. 630 capsule 1 06/24/2021 09/13/2022 Discontinued Start: 05-15-2014 End: 07-13-2023 take 900 mg by mouth twice daily at mealtime Gabapentin Discontinued 900 MG PO TWICE DAILY WITH MEALS May 14, 2014 11:00pm July 13, 2023 9:46am Comment on above: Take 3 capsules in a .m., 4 capsules in p.m. levocetirizine dihydrochloride 5 mg oral tablet (20 sources) Histamine-1 Receptor Antagonist Start: 06-01-20 take 1 tablet by mouth once daily levocetirizine (XYZAL) 5 mg tablet Take 1 tablet by mouth once daily. 30 tablet 3 06/01/2023 Active Start: 03-24-2022 End: 09-13-2022 take 1 tablet by mouth once daily levocetirizine (XYZAL) 5 mg tablet Take 1 tablet by mouth once daily. 30 tablet 3 03/24/2022 09/13/2022 Discontinued Comment on above: Take 1 tablet by gilson th once daily. levoFLOXacin 250 mg oral tablet (3 sources) Quinolone Antimicrobial Start: 08-10-20 End: 08-23-20 take 1 tablet by mouth once daily levoFLOXacin (LEVAQUIN) 250 mg tablet Take 1 tablet by mouth once daily for 7 days. 7 tablet 08/10/2023 08/16/2023 Discontinued Comment on above: Take 1 tablet by gilson th once daily for 7 days. loratadine 10 mg oral tablet (8 sources) Start: 06-07-20 End: 03-24-20 take 1 tablet by mouth once daily loratadine (CLARITIN) 10 mg tablet Indications: Allergic rhinitis, unspecified seasonality, unspecified trigger Take 1 tablet by mouth once daily. 0 06/07/2020 03/24/2022 Discontinued Comment on above: Take 1 tablet by gilson th once daily. 5 ml midazolam 1 mg/ml injection (1 source) Benzodiazepine Start: 05-08-20 End: 05-08-20 1-5 mg, INTRAVENOUS, DIRECTED, Starting on Leila 05/08/24 at 1230, Until Leila 05/08/24 at 1629, DOSING DIRECTED BY PHYSICIAN FOR PROCEDURAL SEDATION ONLY, Intraprocedure Multivitamin,Tx-Iron -Minerals (Therems-M) 1 TABLET tablet (5 sources) Start: 08-27-20 End: 07-13-20 take 1 tablet by mouth once daily Multivitamin,Tx-Iron- Minerals (Therems-M) 1 TABLET tablet Discontinued 1 TABLET PO DAILY August 27, 2018 12:00am July 13, 2023 9:47am Start: 08-27-2018 take 1 tablet by gilson th once daily Multivitamin,Fd-Voqh-Onbkswfu (Therems-M ) 1 TABLET tablet Active 1 TABLET PO DAILY August 27, 2018 1:00am MV with Ayn-Ycdgxoul-Wfeguy (CENTRUM SILVER) 0.4-300-250 mg-mcg-mcg tab (20 sources) Start: 10-19-2015 End: 03-04-2024 take 1 tablet by mouth once daily MV with Pjr-Ogsfilac-Maxaua (CENTRUM SILVER) 0.4-300-250 mg-mcg-mcg tab Take 1 tablet by mouth once daily. 10/19/2015 03/04/2024 Discontinued Start: 10-19-2015 End: 03-04-2024 take 1 tablet by mouth once daily MV with Baj-Glymmevi-Qndcly (CENTRUM SILVER) 0.4-300-250 mg-mcg-mcg tab Take 1 tablet by mouth once daily. 0 10/19/2015 03/04/2024 Discontinued Start: 10-19-2015 take 1 tablet by gilson once daily MV with Lci-Xoziithv-Jchkam (CENTRUM SILVER) 0.4-300-250 mg-mcg-mcg tab Take 1 tablet by mouth once daily. 0 10/19/2015 Active Comment on above: Take 1 tablet by gilson once daily. omega-3 fatty acids (FISH OIL CONCENTRATE ORAL) (19 sources) End: 08-10-2023 omega-3 fatty acids (FISH OIL CONCENTRATE ORAL) Take by mouth. 08/10/2023 Discontinued (Discontinued by Patient) omega-3 fatty ac ids (FISH OIL CONCENTRATE ORAL) Take by mouth. 0 Active Comment on above: Take by mouth. omeprazole 40 mg delayed release oral capsule (5 sources) Proton Pump Inhibitor Start: 06-24-20 End: 02-18-20 take 1 capsule by mouth twice daily omeprazole (PRILOSEC) 40 mg capsule Take 1 capsule by mouth twice daily. 180 capsule 1 01/17/2022 02/17/2022 Discontinued (Cost of medication) Comment on above: Take 1 capsule by mo [facility] twice daily. 2 ml ondansetron 2 mg/ml injection (20 sources) Serotonin-3 Receptor Antagonist Start: 05-08-20 24 End: 05-08-20 24 4 mg, INTRAVENOUS, DIRECTED, Starting on Leila 05/08/24 at 1230, Until Leila 05/08/24 at 1629, Dosing as directed for intraprocedural use only, Intraprocedure Start: 05-25-2023 End: 03-04-2024 ondansetron orally disintegr ating (ZOFRAN ODT) 4 mg disintegrating tablet EVERY 8 HOURS NEEDED 05/25/2023 03/04/2024 Discontinued Start: 12-13-2020 End: 07-31-2022 take 1 tablet by mouth every eight hours as needed for nausea and nausea ondansetron (ZOFRAN) 4 mg tablet Indications: Nausea Take 1 tablet by mouth every 8 hours as needed for Nausea/Vomiting (if not controlled with phenergan). 24 tablet 12/13/2020 07/31/2022 Discontinued Comment on above: Take 1 tablet by gilson th every 8 hours as needed for Nausea/Vomiting (if not controlled with phenergan). EVERY 8 HOURS NEE DED oxyCODONE hydrochloride 5 mg oral tablet (5 sources) Opioid Agonist Start: End: take 5 mg by mouth every four hours as needed Oxycodone Discontinued 5 MG PO EVERY 4 HOURS NEEDED 14 July 29, 2018 12:00am August 01, 2018 12:07am Oxymetazoline (2 sources) oxymetazoline HC l (NASAL SPRAY SINUS NASAL) Use in the nose. 0 Active Comment on above: Use in the nose. sucralfate 1000 mg oral tablet (20 sources) Aluminum Complex Start: End: take 1 tablet by mouth at bedtime sucralfate (CARAFATE) 1 gram tablet Take 1 tablet by mouth before meals and at bedtime. 56 tablet 1 12/13/2020 09/13/2022 Discontinued Comment on above: Take 1 tablet by gilson th before meals and at bedtime. SUMAtriptan 100 mg oral tablet (5 sources) Serotonin-1b and Serotonin-1d Receptor Agonist Start: End: take 1 tablet by mouth once Sumatriptan Succinate (Imitrex) 100 MG tablet Discontinued 100 MG PO ONE TIME July 25, 2018 12:00am July 13, 2023 9:47am Zinc (20 sources) End: ZINC ORAL Take by mouth. 03/04/2024 Discontinued End: 03-04-2024 ZINC ORAL Take by mouth. 0 0 03/04/2024 Discontinued ZINC ORAL Take b y mouth. 0 Active Comment on above: Take by mouth. Problems Active Problems Problem Classification Problem Date Documented Da te Episodic/Chronic Abdominal hernia (1 source) Hiatal hernia; Translations: [Diaphragmatic hernia without obstruction or gangrene] 01-26-2025 Episodic Anxiety disorders (5 sources) Mixed anxiety and depressive disorder; Translations: [Anxiety disorder, unspecified] 08-28-2018 Chronic Diabetes mellitus without complication (3 sources) Prediabetes; Translations: [Prediabetes] 07-13-2023 Episodic Disorders of lipid metabolism (20 sources) Hypercholesterolemia; Translations: [Pure hypercholesterolemia, unspecified] 08-21-2013 Chronic Diverticulosis and diverticulitis (11 sources) Diverticulitis; Translations: [Diverticulitis of intestine, part unspecified, without perforation or abscess without bleeding] Onset: 5 05-09-2019 Chronic Esophageal disorders (20 sources) Gastroesophageal reflux disease; Translations: [Gastro-esophageal reflux disease without esophagitis] Onset: 5 05-16-2005 Chronic Essential hypertension (6 sources) Hypertensive disorder; Translations: [Essential (primary) hypertension] 08-28-2018 Chronic Headache; including migraine (20 sources) Migraine variants; Translations: [Other migraine, not intractable, without status migrainosus] Onset: 7 Chronic Headache; including migraine (2 sources) Medication overuse headache; Translations: [Drug-induced headache, not elsewhere classified, not intractable] 10-29-2023 Episodic Immunizations and screening for infectious disease (2 sources) Viral screening status; Translations: [Encounter for screening for other viral diseases] Episodic Malaise and fatigue (1 source) Fatigue; Translations: [Other fatigue] 03-04-2024 Episodic Miscellaneous mental health disorders (20 sources) Bruxism (teeth grinding); Translations: [Other somatoform disorders] Onset: 1 08-16-2011 Chronic Nausea and vomiting (20 sources) Nausea; Translations: [Nausea] Onset: 5 Resolved: 5 Episodic Noninfectious gastroenteritis (1 source) Chronic diarrhea; Translations: [Noninfective gastroenteritis and colitis, unspecified] 05-04-2025 Episodic Nutritional deficiencies (3 sources) Vitamin D deficiency; Translations: [Vitamin D deficiency, unspecified] 03-07-2024 Chronic Other and unspecified benign neoplasm (1 source) History of polyp of colon; Translations: [Personal history of colonic polyps] 06-19-2023 Episodic Other bone disease and musculoskeletal deformities (5 sources) Osteopenia; Translations: [Other specified disorders of bone density and structure, multiple sites] Episodic Other bone disease and musculoskeletal deformities (3 sources) Other specified disorders of bone density and structure, unspecified site; Translations: [Disorder of bone and cartilage, unspecified] 07-13-2023 Episodic Other connective tissue disease (1 source) Pain of bilateral upper limbs; Translations: [Pain in right arm] Episodic Other connective tissue disease (1 source) Finding of knee region; Translations: [Pain in unspecified limb] Episodic Other ear and sense organ disorders (5 sources) Ear sensations - finding; Translations: [Other specified disorders of ear, bilateral] 07-30-2023 Episodic Other eye disorders (1 source) Bilateral epiphora of eyes; Translations: [Unspecified epiphora, bilateral] 08-28-2024 Episodic Other gastrointestinal disorders (4 sources) Pharyngeal dysphagia; Translations: [Dysphagia, pharyngeal phase] 03-19-2024 Episodic Other gastrointestinal disorders (1 source) Oropharyngeal dysphagia; Translations: [Dysphagia, oropharyngeal phase] 05-14-2024 Episodic Other gastrointestinal disorders (2 sources) Dysphagia, unspecified; Translations: [Dysphagia, unspecified] Onset: 4 Episodic Other lower respiratory disease (7 sources) Cough; Translations: [Cough] 07-30-2023 Episodic Other lower respiratory disease (2 sources) Dyspnea; Translations: [Shortness of breath] 08-10-2023 Episodic Other lower respiratory disease (5 sources) Cough; Translations: [Acute cough] 05-23-2024 Episodic Other nervous system disorders (1 source) Other chronic pain; Translations: [Other chronic back pain] Onset: 2 Chronic Other nutritional; endocrine; and metabolic disorders (3 sources) Unintentional weight loss; Translations: [Abnormal weight loss] 07-13-2023 Episodic Other nutritional; endocrine; and metabolic disorders (3 sources) Abnormal weight loss; Translations: [Loss of weight] 07-13-2023 Episodic Other screening for suspected conditions (not mental disorders or infectious disease) (20 sources) Patient encounter status; Translations: [Encounter for screening mammogram for malignant neoplasm of breast] Onset: 3 Episodic Other upper respiratory disease (1 source) Seasonal allergic rhinitis; Translations: [Other allergic rhinitis] 01-26-2025 Chronic Other upper respiratory disease (1 source) Other allergic rhinitis; Translations: [Non-seasonal allergic rhinitis, unspecified trigger] Onset: 5 Chronic Other upper respiratory disease (5 sources) Nasal discharge; Translations: [Other specified disorders of nose and nasal sinuses] 07-30-2023 Episodic Other upper respiratory infections (2 sources) Chronic sinusitis; Translations: [Chronic sinusitis, unspecified] Onset: 5 09-15-2024 Chronic Other upper respiratory infections (10 sources) Acute sinusitis; Translations: [Acute sinusitis, unspecified] Onset: 5 Episodic Residual codes; unclassified (1 source) Postmenopausal state; Translations: [Asymptomatic menopausal state] Episodic Screening and history of mental health and substance abuse codes (1 source) Encounter for screening for depression; Translations: [Screening for depression] Onset: 5 Episodic Spondylosis; intervertebral disc disorders; other back problems (20 sources) Intervertebral disc disorder; Translations: [Other intervertebral disc displacement, thoracolumbar region] Onset: 7 Resolved: 9 05-06-2018 Chronic Thyroid disorders (1 source) Goiter; Translations: [Nontoxic goiter, unspecified] 03-19-2024 Chronic Unclassified (6 sources) Inflammatory disorder; Translations: [Inflammation] 07-13-2023 Unclassified (2 sources) Patient encounter status 01-26-2025 Unclassified (1 source) DDD (degenerative disc disease), lumbar; Translations: [DDD (degenerative disc disease), lumbar] Onset: 5 Unclassified (1 source) Acute cough; Translations: [Acute cough] Onset: 5 Unclassified (1 source) Subacute cough; Translations: [Subacute cough] Onset: 4 Past or Other Problems Problem Classification Problem Date Documented Da te Episodic/Chronic Abdominal pain (14 sources) Generalized abdominal pain; Translations: [Generalized abdominal pain] Onset: 4 05-10-2019 Episodic Allergic reactions (3 sources) Allergy to bee venom; Translations: [Bee allergy status] Onset: 5 01-26-2025 Episodic Gastrointestinal hemorrhage (20 sources) Gastrointestinal hemorrhage; Translations: [Hemorrhage of anus and rectum] Onset: 5 Resolved: 5 07-29-2015 Episodic Intracranial injury (20 sources) Concussion with no loss of consciousness; Translations: [Concussion without loss of consciousness, initial encounter] Resolved: 9 07-09-2019 Episodic Nonspecific chest pain (20 sources) Non-cardiac chest pain; Translations: [Other chest pain] Onset: 7 Resolved: 9 07-09-2019 Episodic Other gastrointestinal disorders (20 sources) Diarrhea; Translations: [Diarrhea, unspecified] Onset: 3 Episodic Other gastrointestinal disorders (2 sources) Diarrhea, unspecified; Translations: [Diarrhea, unspecified type] Onset: 3 Episodic Other gastrointestinal disorders (20 sources) Dysphagia; Translations: [Dysphagia, unspecified] Onset: 4 04-23-2024 Episodic Other gastrointestinal disorders (1 source) Other specified symptoms and signs involving the digestive system and abdomen; Translations: [Other specified symptoms and signs involving the digestive system and abdomen] Onset: 4 Episodic Other lower respiratory disease (20 sources) Breathing painful; Translations: [Chest pain on breathing] Onset: 9 Resolved: 3 08-21-2013 Episodic Other lower respiratory disease (1 source) Shortness of breath; Translations: [Shortness of breath] Onset: 4 Episodic Other nervous system disorders (20 sources) Skin sensation disturbance; Translations: [Unspecified disturbances of skin sensation] Resolved: 9 07-09-2019 Episodic Other skin disorders (1 source) Localized swelling, mass and lump, neck; Translations: [Localized swelling, mass and lump, neck] Onset: 4 Episodic Poisoning by nonmedicinal substances (20 sources) Toxic effect of contact with unspecified venomous animal, accidental (unintentional), initial encounter; Translations: [Toxic effect of venom] Onset: 8 04-28-2008 Episodic Spondylosis; intervertebral disc disorders; other back problems (20 sources) Neck pain; Translations: [Cervicalgia] Onset: 2 Resolved: 9 08-21-2013 Episodic Sprains and strains (20 sources) Neck sprain; Translations: [Sprain of joints and ligaments of unspecified parts of neck, initial encounter] Onset: 9 Resolved: 9 Episodic Results Test Name Value Interpretation Reference Range Facility [facility] 07-07-2025 CNOV Office Visit (INTMWS ) -------- SAULO GEIGER I ([id number]) 1960 F NFR Date Time Provider Department 07/07/25 1:00 PM CECILIA SPARKS INTMWS During your visit today, we recorded the following information about you: Temperature Pulse Respiration Blood pressure 98.8 degrees 74/minute 12/minute 116/78 Weight 63 kg Cecilia Sparks, ABBY.[employer] TECHNICIAN 07/07/2025 1:22 PM Addendum -- Cyclobenzaprine (muscle relaxant) refill sent to [facility]; you may take up to three doses per day (for example, one at bedtime and up to two during the day) if needed for muscle pain. - Augmentin prescription sent to have on hand; wait a few more days to see if your symptoms improve before starting it. If your sore throat, nasal drainage, cough or fatigue worsen or fail to improve after a few more days, begin the Augmentin and contact the office. - Continue your Flonase nasal spray and daily allergy pills for year-round allergy management. - Continue your migraine regimen - Hold off on the flu vaccine until you are feeling well to avoid overloading your immune system. - Schedule an appointment with an ear, nose, and throat (ENT) specialist for further evaluation of your chronic allergy and sinus symptoms. - Notify the clinic if your sore throat, nasal symptoms, cough, fatigue or muscle aches worsen or do not improve in the next few days. Cecilia Sparks, ENGINE MANAGER.[employer] TECHNICIAN 07/07/2025 2:05 PM Signed CC: No chief complaint on file. Recording using [employer] software for draft documentation of the visit was discussed with the patient/authorized sales representative advertising; all questions welcomed and answered. Patient/authorized sales representative advertising agreed to proceed HPI The patient is a 64-year-old female with a history of asthma, chronic nausea, and migraines, presenting for evaluation of URI symptoms, fatigue, and myalgias. URI Symptoms: - Onset of symptoms 2 days ago. - Reports rhinorrhea, lacrimation, pharyngitis, and cough. - Year-round allergies; uses Flonase and oral antihistamines. - No prior evaluation by an industrial boilermaker or ENT specialist. - Onset 2 days ago. - Describes feeling tired all the time and wanting to sleep constantly. - Myalgias in the arm, using Biofreeze for relief. - Decreased appetite; only consumed half an apple and half a cup of coffee today. - Recent sinus infection, treated with Augmentin last month and symptoms completely resolved Asthma: - Uses albuterol inhaler PRN. Chronic Nausea: - Managed with Phenergan. Migraines: - History of migraines since 6th grade. - Severe migraine last night, persisting into today. - Managed with Emerge and topiramate. - No migraine medication available last night; took medication this morning. Back Pain: - Severe back pain at times, requiring sitting down for relief. - Uses cyclobenzaprine TID PRN for muscle spasms. Diarrhea: - Recent recurrence of diarrhea; previously well-controlled. - Requests refill of antidiarrheal medication. Review of Systems See HPI PAST MEDICAL HISTORY Diagnosis Date Bee sting allergy 04/28/2008 Concussion with no loss of consciousness Displacement of intervertebral disc, site unspecified, without myelopathy 11/30/2006 [facility] claim Disturbance of skin sensation Esophageal reflux Headaches migraines Hypercholesteremia Mental disorder anxiety Multiple rib fractures 2012 Fell down stairs to basement-- 5th and 6th rib fractures and left great toe fracture Snoring Sprain of lumbosacral (joint) (ligament) Sprain of neck [facility] claim Sprain of thoracic region [facility] claim Tubular adenoma of colon 07/29/2015 Dr. Caban Variants of migraine, not elsewhere classified, without mention of intractable migraine without mention of status migrainosus PAST SURGICAL HISTORY Procedure Laterality Date CHOLECYSTECTOMY 02/26/2017 Cholecystectomy; [facility] with Dr. Alejo COLONOSCOPY FLX DX W/COLLJ SPEC WHEN PFRMD 07/29/2015 Colonoscopy COLONOSCOPY SCREENING 2019 COLONOSCOPY SCREENING 06/28/2023 repeat in 10 years, Dr. Alejo EGD 05/08/2024 ESOPHAGOGASTRODUODENOSCO PY TRANSORAL DIAGNOSTIC 07/29/2015 EGD ESOPHAGOGASTRODUODENOSCO PY TRANSORAL DIAGNOSTIC 04/05/2017 EGD PAST SURGICAL HISTORY OF bilat feet - reconstruction ALLERGIES Bee Venom Protein (Honey Bee), Morphine, Relafen [Nabumetone], Venom-Honey Bee, and Zolpidem MEDICATIONS loperamide (ANTI-DIARRHEAL) 2 mg cap(s) Take 1 capsule by mouth four times a day as needed for diarrhea. albuterol HFA (VENTOLIN HFA) 90 mcg/actuation inhaler Inhale 2 puffs as instructed every 4 hours as needed for wheezing/shortness of breath. ibuprofen (MOTRIN) 800 mg tablet Take 1 tablet by mouth every 8 hours as needed for pain. Take with food. promethazine (PHENERGAN) 25 mg tablet Take 0.5-1 tablets by mouth every 6 hours as needed. amoxicillin-clavulanate potassi (more content not included)... Normal [facility] 05-19-2025 [facility] Telephone (INTMWS) -------- AUSTINSAULO I ([id number]) 1960 F NFR Date Time Provider Department 05/19/25 CECILIA SPARKS During your visit today, we recorded the following information about you: Marcie Judge LPN 05/19/2025 4:04 PM Signed Patient calling she was seen in office on 05/15. Patient said she has 2 days of amoxicillin left to take and is not helping at all. She is having constant runny nose, headache, nausea, she is miserable. Patient asking if she could be put on another antibiotic? Patient said she uses [facility]. Please advise Alexa Singer RN 05/20/2025 11:12 AM Signed Patient seen twice by Cecilia Sparks on 05/08/25 and 05/15/25 for an URI, cough, and sinus problems. Pt calling in follow up to call yesterday at 4 pm. Pt is not feeling any better and is asking ffor another antibiotic for at least another week. She states that Cecilia Sparks told her that since she has seen her twice for this, she would call her in another antibiotic. Pt wants provider told to either give her another antibiotic or to give her another week's worse of the one she has. Explained to pt that if this is viral, an antibiotic won't help and that some of these illnesses are lasting 3-4 weeks or more. Pt demanding that she needs another antibiotic and does not want to come back in for an appt. Joi Beal MD 05/20/2025 4:54 PM Signed Sent some augmentin, if this is a bacterial infection, it should help as it is stronger than amoxi and good one for sinusitis Joi Mayes MD, Brittany L, MA 05/20/2025 5:07 PM Signed Unable to reach patient. Left VM to return call to office. Please read below and advise. LAMIN Carpio Sherrie, RN 05/20/2025 5:16 PM Signed Patient returned call and given provider's message below and patient verbalized understanding. Tuyet Cabrera RN Allergies As of Date: 05/19/2025 Noted Allergy Reaction BEE VENOM PROTEIN (HONEY BEE) 07/30/2023 16 - Unknown MORPHINE 04/03/2017 11 - Vomiting RELAFEN (NABUMETONE) 11/26/2008 6 - Diarrhea Comments: 2005 tried med VENOM-HONEY BEE 01/28/2023 16 - Unknown ZOLPIDEM 01/28/2023 14 - Other: See Comments Date Reviewed: 05/15/2025 Reviewed by: Marina Galvan LPN - Fully Assessed Reason for Visit: Medication Request [138] Pt still feeling ill [Other] Order(s):amoxicillin-cla vulanate potassium (AUGMENTIN) 875-125 mg per tabletTake 1 tablet by mouth two times a day for 7 days.Disp: 14 tabletRfl: 0 Prescriptions as of 05/20/2025 - amoxicillin-clavulanate potassium (AUGMENTIN) 875-125 mg per tablet Take 1 tablet by mouth two times a day for 7 days. - amoxicillin (AMOXIL) 875 mg tablet Take 1 tablet by mouth two times a day for 7 days. - benzonatate (TESSALON PERLES) 100 mg capsule Take 1-2 capsules by mouth three times a day as needed for cough. - diclofenac, EC, (VOLTAREN) 50 mg EC tablet Take 1 tablet by mouth two times a day as needed. - ibuprofen (MOTRIN) 800 mg tablet Take 1 tablet by mouth every 8 hours as needed for pain. Take with food. - naratriptan (AMERGE) 2.5 mg tablet Take 1 tablet by mouth as needed. 2.5 mg at onset of headache, may repeat in 4 hours if needed - promethazine (PHENERGAN) 25 mg tablet Take 0.5-1 tablets by mouth every 6 hours as needed. - loperamide (ANTI-DIARRHEAL) 2 mg cap(s) Take 1 capsule by mouth four times a day as needed for diarrhea. - pantoprazole DR (PROTONIX) 40 mg tablet Take 1 tablet by mouth two times a day before meals at 6 am and 4 pm. Take on empty stomach, 1/2 hr before meal. - topiramate (TOPAMAX) 100 mg tablet TAKE 2 TABLETS TWICE A DAY IN THE MORNING AND AT BEDTIME - fluticasone (FLONASE) 50 mcg/actuation nasal spray Use 2 sprays in each nostril once daily. Rinse mouth after use. - EPINEPHrine (EPIPEN 2-LUAN) 0.3 mg/0.3 mL auto-injector Inject 0.3 mL intramuscularly as needed. - dilTIAZem CD (CARTIA XT) 180 mg 24 hr capsule Take 1 capsule by mouth once daily. - cholecalciferol (VITAMIN D3) 1,000 unit tab tablet Take 1 tablet by mouth once daily. - cyclobenzaprine (FLEXERIL) 10 mg tablet Take 1 tablet by mouth at bedtime as needed for muscle spasm or pain. - albuterol HFA (VENTOLIN HFA) 90 mcg/actuation inhaler Inhale 2 puffs as instructed every 4 hours as needed for wheezing/shortness of breath. - dicyclomine (BENTYL) 10 mg capsule Take 10 mg by mouth before meals and at bedtime. - ascorbic acid, vitamin C, 500 mg cap Take 1 capsule by mouth once daily. - scopolamine (TRANSDERM-SCOP) patch 1.5 mg/72 hr (delivers 1 mg over 3 days) Apply 1 Patch as directed every 72 hours. From [facility]. - ALPRAZolam (XANAX) 0.5 mg tablet Take 0.5 mg by mouth at bedtime as needed. Problem List As Of Date 05/19/2025 Noted Resolved Concussion with no loss of consciousness [S06.0* 07/09/2019 Sprain of neck [S13.9XXA (more content not included)... Normal [facility] CNOVon 05-15-2025 CNOV Office Visit (INTMWS ) -------- SAULO GEIGER I ([id number]) 1960 F NFR Date Time Provider Department 05/15/25 12:20 PM CECILIA SPARKS INTMWS During your visit today, we recorded the following information about you: Temperature Pulse Respiration Blood pressure 98.5 degrees 90/minute 14/minute 112/63 Weight 63 kg Cecilia Sparks APRN.[employer]CH[employer] 05/15/2025 1:05 PM Signed - Begin Amoxicillin, one tablet twice daily for 7 days; your prescription is sent to [facility]. - Rest as much as possible and drink plenty of fluids to help loosen congestion and support recovery. - Follow-up in one week if your symptoms fail to improve or sooner if worsening Cecilia Sparks APRN.[employer]CHNIC[employer] 05/15/2025 1:15 PM Signed CC: Patient presents with: Recheck: Not feeling any better HPI Recording using ambient [employer] software for draft documentation of the visit was discussed with the patient/authorized sales representative advertising; all questions welcomed and answered. Patient/authorized sales representative advertising agreed to proceed The patient is a 64-year-old female presenting for evaluation of persistent sinus congestion, facial pain, and headache. Upper Respiratory Symptoms: - She was seen on 05/08 for three day history of URI symptoms - Treated with prednisone and Tessalon Perles. Also taking Flonase. - Persistent sore throat, ear pain, and rhinorrhea despite treatment. - Reports yellow nasal discharge. - Intermittent episodes of feeling hot and cold. - Constant headache. - Eye watering. - Facial pressure. - Ear tenderness with drainage. - non-productive cough and Shortness of Breath with exertion - Fatigue, unable to stay awake during the day. Review of Systems See HPI PAST MEDICAL HISTORY Diagnosis Date Bee sting allergy 04/28/2008 Concussion with no loss of consciousness Displacement of intervertebral disc, site unspecified, without myelopathy 11/30/2006 [facility] claim Disturbance of skin sensation Esophageal reflux Headaches migraines Hypercholesteremia Mental disorder anxiety Multiple rib fractures 2012 Fell down stairs to basement-- 5th and 6th rib fractures and left great toe fracture Snoring Sprain of lumbosacral (joint) (ligament) Sprain of neck [facility] claim Sprain of thoracic region [facility] claim Tubular adenoma of colon 07/29/2015 Dr. Caban Variants of migraine, not elsewhere classified, without mention of intractable migraine without mention of status migrainosus PAST SURGICAL HISTORY Procedure Laterality Date CHOLECYSTECTOMY 02/26/2017 Cholecystectomy; [facility] with Dr. Alejo COLONOSCOPY FLX DX W/COLLJ SPEC WHEN PFRMD 07/29/2015 Colonoscopy COLONOSCOPY SCREENING 2019 COLONOSCOPY SCREENING 06/28/2023 repeat in 10 years, Dr. Alejo EGD 05/08/2024 ESOPHAGOGASTRODUODENOSCO PY TRANSORAL DIAGNOSTIC 07/29/2015 EGD ESOPHAGOGASTRODUODENOSCO PY TRANSORAL DIAGNOSTIC 04/05/2017 EGD PAST SURGICAL HISTORY OF bilat feet - reconstruction ALLERGIES Bee Venom Protein (Honey Bee), Morphine, Relafen [Nabumetone], Venom-Honey Bee, and Zolpidem MEDICATIONS benzonatate (TESSALON PERLES) 100 mg capsule Take 1-2 capsules by mouth three times a day as needed for cough. ibuprofen (MOTRIN) 800 mg tablet Take 1 tablet by mouth every 8 hours as needed for pain. Take with food. naratriptan (AMERGE) 2.5 mg tablet Take 1 tablet by mouth as needed. 2.5 mg at onset of headache, may repeat in 4 hours if needed promethazine (PHENERGAN) 25 mg tablet Take 0.5-1 tablets by mouth every 6 hours as needed. loperamide (ANTI-DIARRHEAL) 2 mg cap(s) Take 1 capsule by mouth four times a day as needed for diarrhea. pantoprazole DR (PROTONIX) 40 mg tablet Take 1 tablet by mouth two times a day before meals at 6 am and 4 pm. Take on empty stomach, 1/2 hr before meal. topiramate (TOPAMAX) 100 mg tablet TAKE 2 TABLETS TWICE A DAY IN THE MORNING AND AT BEDTIME fluticasone (FLONASE) 50 mcg/actuation nasal spray Use 2 sprays in each nostril once daily. Rinse mouth after use. EPINEPHrine (EPIPEN 2-LUAN) 0.3 mg/0.3 mL auto-injector Inject 0.3 mL intramuscularly as needed. dilTIAZem CD (CARTIA XT) 180 mg 24 hr capsule Take 1 capsule by mouth once daily. cholecalciferol (VITAMIN D3) 1,000 unit tab tablet Take 1 tablet by mouth once daily. cyclobenzaprine (FLEXERIL) 10 mg tablet Take 1 tablet by mouth at bedtime as needed for muscle spasm or pain. albuterol HFA (VENTOLIN HFA) 90 mcg/actuation inhaler Inhale 2 puffs as instructed every 4 hours as needed for wheezing/shortness of breath. dicyclomine (BENTYL) 10 mg capsule Take 10 mg by mouth before meals and at bedtime. ascorbic acid, vitamin C, 500 mg cap Take 1 capsule by mouth once daily. scopolamine (TRANSDERM-SCOP) patch 1.5 mg/72 hr (delivers 1 mg over 3 days) Apply 1 Patch as directed every 72 hours. From [facility]. ALPRAZolam (XANAX) 0.5 mg tablet Take 0.5 (more content not included)... Normal [facility] SCREENING W TOMOon 05-14 JENNY SCREENING W [place] * * *Final Report* * * DATE OF EXAM: May 14 2025 1:44PM CHONG [id number] - [facility] SCREENING [facility] [place] / PROCEDURE REASON: Encounter for screening mammogram for breast cancer * * * * Physician Interpretation * * * * RESULT: [address] [address] [place] [address] #[id number] - [facility] SCREENING [facility] [place] HISTORY: 64 year-old patient presents for screening. Patient is asymptomatic in both breasts. Patient states no personal history of breast cancer. The patient has a family history of breast cancer. COMPARISON STUDIES: The present examination has been compared to prior imaging studies dated 02/13/2017 (mammogram) and 05/01/2018 (mammogram). MAMMOGRAM TECHNIQUE: The study was acquired using full field digital technology and interpreted from soft copy. Digital Breast Tomosynthesis (DBT) images were obtained and used to assist in the interpretation of this examination. MAMMOGRAM FINDINGS: There are scattered areas of fibroglandular density. No suspicious masses, calcifications or other abnormalities are seen in either breast. There are no significant interval changes. IMPRESSION: There is no mammographic evidence of malignancy in either breast. Routine screening mammogram is recommended. Annual mammogram will be due in 1 year. BI-RADS Category 1: Negative RISK: Based on the Tyrer-Cuzick (TC) risk assessment model, this patient has a 3.9% lifetime risk of developing breast cancer, meaning they are at average risk for developing breast cancer. However, this is only an estimate based on available history provided on the patient's questionnaire. We encourage all patients to talk with their providers about these results, further recommendations for managing breast health, and appropriate supplemental screening options if the patient has dense breast tissue. Interpreting Radiologist: Robson Holder M.D. Electronically signed on: 05/15/2025 Soft Crab Shedder: KANDI Transcribe Date/Time: May 14 2025 1:22P Dictated by: ROBSON HOLDER MD This examination was interpreted and the report reviewed and electronically signed by: ROBSON HOLDER MD on May 15 2025 3:59PM EST [id number] Normal [facility] CNOVon 05-08-2025 CNOV Office Visit (INTMWS ) -------- SAULO GEIGER I ([id number]) 1960 F NFR Date Time Provider Department 05/08/25 12:20 PM CECILIA SPARKS INTMWS During your visit today, we recorded the following information about you: Temperature Pulse Respiration Blood pressure 97.1 degrees 68/minute 12/minute 116/74 Weight 62.8 kg Cecilia Sparks, ENGINE MANAGER.[employer] TECHNICIAN 05/08/2025 12:40 PM Signed - 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 - Take Prednisone once daily for 5 days. - Take Tessalon Perles (benzonatate) 1-2 capsules up to three times a day as needed to ease your cough. - Continue using your Flonase nasal spray every day. - To soothe your throat, do warm salt-water gargles, sip warm tea with honey, and use the throat spray as needed. - Monitor your symptoms over the next 5-7 days; if you do not feel significantly better or if you worsen, please let us know. Cecilia Sparks, ENGINE MANAGER.[facility] 05/08/2025 12:55 PM Signed CC: Patient presents with: Cough: Cough, bilateral ear pressure, nausea, fatigue x 3-4 days HPI Recording using [employer] software for draft documentation of the visit was discussed with the patient/authorized sales representative advertising; all questions welcomed and answered. Patient/authorized sales representative advertising agreed to proceed The patient is a 64-year-old female with allergic rhinitis, presenting for evaluation of acute worsening upper respiratory symptoms. Upper Respiratory Symptoms: - Symptoms x 4 days - Describes feeling like she got hit with a semi-truck. - Rhinorrhea, pharyngitis, otalgia, cough, chills and epiphora. - Dyspnea with exertion. - Using ice water to alleviate throat dryness. - Nausea managed with a transdermal patch and oral antiemetics. - Took sinus and mucus medication from [facility], which caused nausea; discontinued use. - No antipyretics or cough suppressants used. - Denies fever, hemoptysis, or known asthma history. - No COVID-19 testing performed. - recently had similar symptoms. - Former smoker. - Uses Flonase for perennial allergic rhinitis. Review of Systems See HPI PAST MEDICAL HISTORY Diagnosis Date Bee sting allergy 04/28/2008 Concussion with no loss of consciousness Displacement of intervertebral disc, site unspecified, without myelopathy 11/30/2006 [facility] claim Disturbance of skin sensation Esophageal reflux Headaches migraines Hypercholesteremia Mental disorder anxiety Multiple rib fractures 2012 Fell down stairs to basement-- 5th and 6th rib fractures and left great toe fracture Snoring Sprain of lumbosacral (joint) (ligament) Sprain of neck [facility] claim Sprain of thoracic region [facility] claim Tubular adenoma of colon 07/29/2015 Dr. Caban Variants of migraine, not elsewhere classified, without mention of intractable migraine without mention of status migrainosus PAST SURGICAL HISTORY Procedure Laterality Date CHOLECYSTECTOMY 02/26/2017 Cholecystectomy; [facility] with Dr. Alejo COLONOSCOPY FLX DX W/COLLJ SPEC WHEN PFRMD 07/29/2015 Colonoscopy COLONOSCOPY SCREENING 2018 COLONOSCOPY SCREENING 06/28/2023 repeat in 10 years, Dr. Alejo EGD 05/08/2024 ESOPHAGOGASTRODUODENOSCO PY TRANSORAL DIAGNOSTIC 07/29/2015 EGD ESOPHAGOGASTRODUODENOSCO PY TRANSORAL DIAGNOSTIC 04/05/2017 EGD PAST SURGICAL HISTORY OF bilat feet - reconstruction ALLERGIES Bee Venom Protein (Honey Bee), Morphine, Relafen [Nabumetone], Venom-Honey Bee, and Zolpidem MEDICATIONS diclofenac, EC, (VOLTAREN) 50 mg EC tablet Take 1 tablet by mouth two times a day as needed. ibuprofen (MOTRIN) 800 mg tablet Take 1 tablet by mouth every 8 hours as needed for pain. Take with food. naratriptan (AMERGE) 2.5 mg tablet Take 1 tablet by mouth as needed. 2.5 mg at onset of headache, may repeat in 4 hours if needed promethazine (PHENERGAN) 25 mg tablet Take 0.5-1 tablets by mouth every 6 hours as needed. loperamide (ANTI-DIARRHEAL) 2 mg cap(s) Take 1 capsule by mouth four times a day as needed for diarrhea. pantoprazole DR (PROTONIX) 40 mg tablet Take 1 tablet by mouth two times a day before meals at 6 am and 4 pm. Take on empty stomach, 1/2 hr before meal. topiramate (TOPAMAX) 100 mg tablet TAKE 2 TABLETS TWICE A DAY IN THE MORNING AND AT BEDTIME fluticasone (FLONASE) 50 mcg/actuation nasal spray Use 2 sprays in each nostril once daily. Rinse mouth after use. EPINEPHrine (EPIPEN 2-LUAN) 0.3 mg/0.3 mL auto-injector Inject 0.3 mL intramuscularly as needed. dilTIAZem CD (CARTIA XT) 180 mg 24 hr capsule Take 1 capsule by mouth once daily. cholecalciferol (VITAMIN D3) 1,000 unit tab tablet Take 1 tablet by mouth once daily. cyclobenzaprine (FLEXERIL) 10 mg tablet Take 1 tablet by mouth at bedtime as needed for muscle spasm or pain. albuterol HFA (VENTOLIN HFA) 90 mcg/actuation inhaler Inhale 2 puffs as instructe (more content not included)... Normal [facility] CNOVon 05-04-2025 CNOV Office Visit (INTMWS ) -------- SAULO GEIGER I ([id number]) 1960 F NFR Date Time Provider Department 05/04/25 1:40 PM CECILIA SPARKS INTMWS During your visit today, we recorded the following information about you: Pulse Respiration Blood pressure Weight 75/minute 16/minute 118/84 62.5 kg Cecilia Sparks, ENGINE MANAGER.[employer]CHN[employer] 05/04/2025 2:17 PM Signed CC: Patient presents with: F/U 6 Month HPI Recording using [employer] software for draft documentation of the visit was discussed with the patient/authorized sales representative advertising; all questions welcomed and answered. Patient/authorized sales representative advertising agreed to proceed Saulovanadna Geiger is a 64-year-old female with a history of migraines, anxiety, and allergies, presenting for a 6-month follow-up. - Requests refills for Phenergan, loperamide, andAmerge - Takes Phenergan for nausea; also uses scopolamine patch PRN, but notes it causes mydriasis. - Takes loperamide for diarrhea, especially after eating certain foods post-cholecystectomy. - Takes Amerge for migraines, which have been occurring since 6th grade. No new or worsening migraine symptoms. - Takes diclofenac and ibuprofen for chronic back and neck pain; has multiple herniated discs. - also takes cyclobenzaprine at night for chronic pain Review of Systems See HPI PAST MEDICAL HISTORY Diagnosis Date Bee sting allergy 04/28/2008 Concussion with no loss of consciousness Displacement of intervertebral disc, site unspecified, without myelopathy 11/30/2006 [facility] claim Disturbance of skin sensation Esophageal reflux Headaches migraines Hypercholesteremia Mental disorder anxiety Multiple rib fractures 2012 Fell down stairs to basement-- 5th and 6th rib fractures and left great toe fracture Snoring Sprain of lumbosacral (joint) (ligament) Sprain of neck [facility] claim Sprain of thoracic region [facility] claim Tubular adenoma of colon 07/29/2015 Dr. Caban Variants of migraine, not elsewhere classified, without mention of intractable migraine without mention of status migrainosus PAST SURGICAL HISTORY Procedure Laterality Date CHOLECYSTECTOMY 02/26/2017 Cholecystectomy; [facility] with Dr. Alejo COLONOSCOPY FLX DX W/COLLJ SPEC WHEN PFRMD 07/29/2015 Colonoscopy COLONOSCOPY SCREENING 2019 COLONOSCOPY SCREENING 06/28/2023 repeat in 10 years, Dr. Alejo EGD 05/08/2024 ESOPHAGOGASTRODUODENOSCO PY TRANSORAL DIAGNOSTIC 07/29/2015 EGD ESOPHAGOGASTRODUODENOSCO PY TRANSORAL DIAGNOSTIC 04/05/2017 EGD PAST SURGICAL HISTORY OF bilat feet - reconstruction ALLERGIES Bee Venom Protein (Honey Bee), Morphine, Relafen [Nabumetone], Venom-Honey Bee, and Zolpidem MEDICATIONS diclofenac, EC, (VOLTAREN) 50 mg EC tablet Take 1 tablet by mouth two times a day as needed. ibuprofen (MOTRIN) 800 mg tablet Take 1 tablet by mouth every 8 hours as needed for pain. Take with food. naratriptan (AMERGE) 2.5 mg tablet Take 1 tablet by mouth as needed. 2.5 mg at onset of headache, may repeat in 4 hours if needed promethazine (PHENERGAN) 25 mg tablet Take 0.5-1 tablets by mouth every 6 hours as needed. loperamide (ANTI-DIARRHEAL) 2 mg cap(s) Take 1 capsule by mouth four times a day as needed for diarrhea. pantoprazole DR (PROTONIX) 40 mg tablet Take 1 tablet by mouth two times a day before meals at 6 am and 4 pm. Take on empty stomach, 1/2 hr before meal. topiramate (TOPAMAX) 100 mg tablet TAKE 2 TABLETS TWICE A DAY IN THE MORNING AND AT BEDTIME fluticasone (FLONASE) 50 mcg/actuation nasal spray Use 2 sprays in each nostril once daily. Rinse mouth after use. EPINEPHrine (EPIPEN 2-LUAN) 0.3 mg/0.3 mL auto-injector Inject 0.3 mL intramuscularly as needed. dilTIAZem CD (CARTIA XT) 180 mg 24 hr capsule Take 1 capsule by mouth once daily. cholecalciferol (VITAMIN D3) 1,000 unit tab tablet Take 1 tablet by mouth once daily. cyclobenzaprine (FLEXERIL) 10 mg tablet Take 1 tablet by mouth at bedtime as needed for muscle spasm or pain. albuterol HFA (VENTOLIN HFA) 90 mcg/actuation inhaler Inhale 2 puffs as instructed every 4 hours as needed for wheezing/shortness of breath. dicyclomine (BENTYL) 10 mg capsule Take 10 mg by mouth before meals and at bedtime. ascorbic acid, vitamin C, 500 mg cap Take 1 capsule by mouth once daily. scopolamine (TRANSDERM-SCOP) patch 1.5 mg/72 hr (delivers 1 mg over 3 days) Apply 1 Patch as directed every 72 hours. From [facility]. ALPRAZolam (XANAX) 0.5 mg tablet Take 0.5 mg by mouth at bedtime as needed. FAMILY HISTORY Problem Relation Age of Onset Breast Cancer Mother Diabetes Mother Heart Mother Cancer Father liver ca Diabetes Sister No Known Problems Brother No Known Problems Half-brother No Known Problems Half-brother No Known Problems Half-sister SOCIAL HISTORY[1] BP 118/84 Pulse 75 Resp 16 Wt 62.5 kg (137 lb 12.6 oz) LMP 10/18/2006 SpO2 1 (more content not included)... Normal [facility] CNOVon 01-02-2025 CNOV Office Visit (INTMWS ) -------- SAULO GEIGER I ([id number]) 1960 F NFR Date Time Provider Department 01/02/25 11:00 AM AKIN ELLIOTT INTMWS During your visit today, we recorded the following information about you: Pulse Respiration Blood pressure Weight 68/minute 16/minute 138/80 63.2 kg Akin Elliott MD 01/26/2025 1:26 AM Signed This note was created using [employer]. Subjective Saulo Geiger is a 64 year old female. Patient presents with: F/U 3 Month Saulo is a 64-year-old female with a history of bee sting allergy, back pain, and diverticulitis, presenting for a 3-month follow-up visit. Saulo reports a history of severe allergic reactions to bee stings, with the most recent significant reaction occurring when she was stung on the neck, leading to throat swelling and difficulty breathing. She was prescribed an EpiPen at that time, which provided rapid symptom relief. She has not had an EpiPen for several years due to cost concerns. She inquires about the possibility of obtaining a free EpiPen from the hospital. She also reports chronic back pain, noting that her back has been getting more hunched over. She takes cyclobenzaprine daily for muscle relaxation and diclofenac every morning for pain management. Saulo experiences seasonal allergies and uses Flonase nasal spray. She also reports episodes of dyspnea, for which she previously used an inhaler that has since . She notes intermittent episodes of left eye pupil dilation, causing blurry vision without associated pain or cephalalgia. She has an upcoming appointment with her eye doctor next week. Saulo has a history of diverticulitis and recently underwent upper and lower endoscopies in October, which revealed two ulcers and a hernia. She is currently taking dicyclomine and wearing a scopolamine patch behind her ear for nausea management. PAST MEDICAL HISTORY Diagnosis Date Bee sting allergy 04/28/2008 Concussion with no loss of consciousness Displacement of intervertebral disc, site unspecified, without myelopathy 11/30/2006 [facility] claim Disturbance of skin sensation Esophageal reflux Headaches migraines Hypercholesteremia Mental disorder anxiety Multiple rib fractures 2012 Fell down stairs to basement-- 5th and 6th rib fractures and left great toe fracture Snoring Sprain of lumbosacral (joint) (ligament) Sprain of neck [facility] claim Sprain of thoracic region [facility] claim Tubular adenoma of colon 07/29/2015 Dr. Caban Variants of migraine, not elsewhere classified, without mention of intractable migraine without mention of status migrainosus Current Outpatient Medications Medication Sig dicyclomine (BENTYL) 10 mg capsule Take 10 mg by mouth before meals and at bedtime. promethazine (PHENERGAN) 25 mg tablet Take 12.5-25 mg by mouth every 6 hours as needed. ibuprofen (MOTRIN) 800 mg tablet Take 1 tablet by mouth every 8 hours as needed for pain. Take with food. diclofenac, EC, (VOLTAREN) 50 mg EC tablet Take 1 tablet by mouth two times a day as needed. ascorbic acid, vitamin C, 500 mg cap Take 1 capsule by mouth once daily. scopolamine (TRANSDERM-SCOP) patch 1.5 mg/72 hr (delivers 1 mg over 3 days) Apply 1 Patch as directed every 72 hours. From [facility]. ALPRAZolam (XANAX) 0.5 mg tablet Take 0.5 mg by mouth at bedtime as needed. naratriptan (AMERGE) 2.5 mg tablet Take 1 tablet (2.5 mg) by mouth as needed. 2.5 mg at onset of headache, may repeat in 4 hours if needed fluticasone (FLONASE) 50 mcg/actuation nasal spray Use 2 Sprays in each nostril once daily. Rinse mouth after use. cholecalciferol (VITAMIN D3) 1,000 unit tab tablet Take 1 tablet by mouth once daily. loperamide (ANTI-DIARRHEAL) 2 mg cap(s) Take 1 capsule by mouth four times a day as needed for diarrhea. EPINEPHrine (EPIPEN 2-LUAN) 0.3 mg/0.3 mL auto-injector Inject 0.3 mL intramuscularly as needed. albuterol HFA (VENTOLIN HFA) 90 mcg/actuation inhaler Inhale 2 puffs as instructed every 4 hours as needed for wheezing/shortness of breath. cyclobenzaprine (FLEXERIL) 10 mg tablet Take 1 tablet by mouth at bedtime as needed for muscle spasm or pain. dilTIAZem CD (CARTIA XT) 180 mg 24 hr capsule Take 1 capsule by mouth once daily. pantoprazole DR (PROTONIX) 40 mg tablet Take 1 tablet by mouth two times a day before meals at 6 am and 4 pm. Take on empty stomach, 1/2 hr before meal. topiramate (TOPAMAX) 100 mg tablet TAKE 2 TABLETS TWICE A DAY IN THE MORNING AND AT BEDTIME No current facility-administered medications for this visit. Review of Systems Objective BP 138/80 (BP Site: Left Arm, BP Position: Sitting, BP Cuff Size: Regular Adult) Pulse 68 Resp 16 Wt 63.2 kg (139 lb 5.3 oz) LMP 10/18/2006 BMI 23.36 kg/m? Physical Exam HENT: Head: Normocephalic. Eyes: Extraocular Movements: Extraocular moveme (more content not included)... [facility] SAULO GEIGER I ([id number]) 1960 F NFR Date Time Provider Department 12/16/24 AKIN ELLIOTT INTWS During your visit today, we recorded the following information about you: Allergies As of Date: 12/16/2024 Noted Allergy Reaction BEE VENOM PROTEIN (HONEY BEE) 07/30/2023 16 - Unknown MORPHINE 04/03/2017 11 - Vomiting RELAFEN (NABUMETONE) 11/26/2008 6 - Diarrhea Comments: 2005 tried med VENOM-HONEY BEE 01/28/2023 16 - Unknown ZOLPIDEM 01/28/2023 14 - Other: See Comments Date Reviewed: 09/15/2024 Reviewed by: Bhavana Ford LPN - Fully Assessed Prescriptions as of 12/16/2024 - ibuprofen (MOTRIN) 800 mg tablet Take 1 tablet by mouth every 8 hours as needed for pain. Take with food. - diclofenac, EC, (VOLTAREN) 50 mg EC tablet Take 1 tablet by mouth two times a day as needed. - ascorbic acid, vitamin C, 500 mg cap Take 1 capsule by mouth once daily. - cyclobenzaprine (FLEXERIL) 10 mg tablet Take 1 tablet by mouth at bedtime as needed for muscle spasm or pain. - scopolamine (TRANSDERM-SCOP) patch 1.5 mg/72 hr (delivers 1 mg over 3 days) Apply 1 Patch as directed every 72 hours. From [facility]. - ALPRAZolam (XANAX) 0.5 mg tablet Take 0.5 mg by mouth at bedtime as needed. - naratriptan (AMERGE) 2.5 mg tablet Take 1 tablet (2.5 mg) by mouth as needed. 2.5 mg at onset of headache, may repeat in 4 hours if needed - fluticasone (FLONASE) 50 mcg/actuation nasal spray Use 2 Sprays in each nostril once daily. Rinse mouth after use. - cholecalciferol (VITAMIN D3) 1,000 unit tab tablet Take 1 tablet by mouth once daily. - loperamide (ANTI-DIARRHEAL) 2 mg cap(s) Take 1 capsule by mouth four times a day as needed for diarrhea. - dilTIAZem CD (CARTIA XT) 180 mg 24 hr capsule Take 1 capsule by mouth once daily. - topiramate (TOPAMAX) 100 mg tablet TAKE 2 TABLETS TWICE A DAY IN THE MORNING AND AT BEDTIME - pantoprazole DR (PROTONIX) 40 mg tablet Take 1 tablet by mouth two times a day before meals at 6 am and 4 pm. Take on empty stomach, 1/2 hr before meal. Problem List As Of Date 12/16/2024 Noted Resolved Concussion with no loss of consciousness [S06.0* 07/09/2019 Sprain of neck [S13.9XXA] 07/09/2019 Sprain of thoracic region [S23.9XXA] 07/09/2019 Migraine variant [G43.809] Disturbance of skin sensation [R20.9] 07/09/2019 ESOPHAGEAL REFLUX [K21.9] Displacement of intervertebral disc of thoracol*11/30/2006 Bee sting allergy [T63.91XA] 04/28/2008 Sprain of lumbosacral (joint) (ligament) [S33.9*09/29/2008 07/09/2019 Painful respiration [R07.1] 10/19/2008 08/21/2013 Bruxism (teeth grinding) [F45.8] 08/16/2011 Lumbago [M54.50] 07/03/2012 07/09/2019 Cervicalgia [M54.2] 08/02/2012 DDD (degenerative disc disease), lumbar [M51.36*08/02/2012 07/09/2019 Lumbar spondylosis [M47.816] 08/02/2012 07/09/2019 Chronic back pain [M54.9, G89.29] 08/02/2012 Hypercholesteremia [E78.00] Bright red rectal bleeding [K62.5] 07/29/2015 07/29/2015 Nausea [R11.0] 07/29/2015 07/29/2015 Non-cardiac chest pain [R07.89] 04/03/2017 07/09/2019 Displacement of cervical intervertebral disc wi*05/06/2018 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 Akin Elliott MD Status:[facility] Patient Name: Saulo Geiger Procedure Date: 10/22/2024 1:55 PM Date of : 1960 Age: 64 Procedure: Colonoscopy Indications: Generalized abdominal pain, Lower abdominal pain Providers: Mariano Rucker DO Referring MD: Mariano Rucker DO Medicines: Monitored Anesthesia Care Patient Profile: This is a 64 year old female. Refer to note in patient chart for documentation of history and physical. Patient has symptoms of chronic abdominal cramping, chronic abdominal distention and chronic epigastric abdominal pain. Last Colonoscopy: date unknown. Unable to locate last colonoscopy report. Complications: No immediate complications. Procedure: Pre-Anesthesia Assessment: - Prior to the procedure, a History and Physical was performed, and patient medications and allergies were reviewed. The patient is competent. The risks and benefits of the procedure and the sedation options and risks were discussed with the patient. All questions were answered and informed consent was obtained. Patient identification and proposed procedure were verified by the physician in the pre-procedure area. Mental Status Examination: alert and oriented. Airway Examination: normal oropharyngeal airway and neck mobility. Respiratory Examination: clear to auscultation. CV Examination: normal. Prophylactic Antibiotics: The patient does not require prophylactic antibiotics. Prior Anticoagulants: The patient has taken no anticoagulant or antiplatelet agents except for NSAID medication. ASA Grade Assessment: III - A patient with severe systemic disease. After reviewing the risks and benefits, the patient was deemed in satisfactory condition to undergo the procedure. The anesthesia plan was to use monitored anesthesia care (MAC). Immediately prior to administration of medications, the patient was re-assessed for adequacy to receive sedatives. The heart rate, respiratory rate, oxygen saturations, blood pressure, adequacy of pulmonary ventilation, and response to care were monitored throughout the procedure. The physical status of the patient was re-assessed after the procedure. After I obtained informed consent, the scope was passed under direct vision. Throughout the procedure, the patient's blood pressure, pulse, and oxygen saturations were monitored continuously. The Colonoscope was introduced through the anus and advanced to the terminal ileum. The colonoscopy was performed without difficulty. The patient tolerated the procedure well. The quality of the bowel preparation was adequate. The terminal ileum, ileocecal valve, appendiceal orifice, and rectum were photographed. Scope In: 1:57:34 PM Scope Withdrawal Time 0 hours 7 minutes 59 seconds Scope Out: 2:14:59 PM Total Procedure Duration Time 0 hours 17 minutes 25 seconds Findings: The perianal and digital rectal examinations were normal. The recto-sigmoid colon and sigmoid colon were significantly redundant. Multiple small and large-mouthed diverticula were found in the recto-sigmoid colon, sigmoid colon and descending colon. The terminal ileum appeared normal. Impression: - Redundant colon. - Diverticulosis in the recto-sigmoid colon, in the sigmoid colon and in the descending colon. - The examined portion of the ileum was normal. - No specimens collected. Recommendation: - Discharge patient to home. - Resume previous diet. - Continue present medications. - Repeat colonoscopy in 5 years for surveillance. Procedure Code(s): --- Professional --- 85166, Colonoscopy, flexible; diagnostic, including collection of specimen(s) by brushing or washing, when performed (separate procedure) CPT copyright 2021 [employer]. All rights reserved. The codes documented in this report are preliminary and upon wire bound box machine helper review may be revised to meet current compliance requirements. Mariano Rucker DO 10/22/2024 2:27:19 PM This report has been signed electronically. Number of Addenda: 0 Note Initiated On: 10/22/2024 1:55 PM 10/22/24 1427 Date Mariano Rucker DO Cosigner Signature: Date (if indicated) CC: Dr. Akin Elliott MD; Mariano Rucker DO Date Dictated: 10/22/24 1355 Date Transcribed: Soft Crab Shedder: DOUG Signed Normal [facility] EGD Reporton 10-22-2024 EGD Report [facility] Medical Records Department [address] [facility] [place] [address] EGD Report MR#: [id number] Acct: [id number] Name: SAULO GEIGER I Rep #: [id number] : 1960 64 From: Mariano Rucker DO PCP: Dr. Akin Elliott MD Status:[facility] Patient Name: Saulo Geiger Procedure Date: 10/22/2024 1:40 PM Date of : 1960 Age: 64 Procedure: Upper GI endoscopy Indications: Epigastric abdominal pain, Functional Dyspepsia, Dysphagia Providers: Mariano Rucker DO Referring MD: Mariano Rucker DO Medicines: Monitored Anesthesia Care Patient Profile: This is a 64 year old female. Refer to note in patient chart for documentation of history and physical. Patient has symptoms of chronic abdominal cramping, chronic abdominal distention and chronic epigastric abdominal pain. Complications: No immediate complications. Procedure: Pre-Anesthesia Assessment: - Prior to the procedure, a History and Physical was performed, and patient medications and allergies were reviewed. The patient is competent. The risks and benefits of the procedure and the sedation options and risks were discussed with the patient. All questions were answered and informed consent was obtained. Patient identification and proposed procedure were verified by the physician in the pre-procedure area. Mental Status Examination: alert and oriented. Airway Examination: normal oropharyngeal airway and neck mobility. Respiratory Examination: clear to auscultation. CV Examination: normal. Prophylactic Antibiotics: The patient does not require prophylactic antibiotics. Prior Anticoagulants: The patient has taken no anticoagulant or antiplatelet agents except for NSAID medication. ASA Grade Assessment: III - A patient with severe systemic disease. After reviewing the risks and benefits, the patient was deemed in satisfactory condition to undergo the procedure. The anesthesia plan was to use monitored anesthesia care (MAC). Immediately prior to administration of medications, the patient was re-assessed for adequacy to receive sedatives. The heart rate, respiratory rate, oxygen saturations, blood pressure, adequacy of pulmonary ventilation, and response to care were monitored throughout the procedure. The physical status of the patient was re-assessed after the procedure. After obtaining informed consent, the endoscope was passed under direct vision. Throughout the procedure, the patient's blood pressure, pulse, and oxygen saturations were monitored continuously. The Colonoscope was introduced through the mouth, and advanced to the second part of duodenum. The upper GI endoscopy was accomplished without difficulty. The patient tolerated the procedure well. Scope In: 1:50:49 PM Scope Out: 1:55:24 PM Total Procedure Duration Time 0 hours 4 minutes 35 seconds Findings: No gross lesions were noted in the entire esophagus. A small hiatal hernia was present. Suspect gastroparesis due to absence of peristalsis, patient symptoms and retained gastric contents. Biopsies were taken with a cold forceps for histology. Verification of patient identification for the specimen was done. Estimated blood loss was minimal. Biopsies were taken with a cold forceps for Helicobacter pylori testing. Verification of patient identification for the specimen was done. Estimated blood loss was minimal. Diffuse mildly erythematous mucosa without active bleeding and with no stigmata of bleeding was found in the duodenal bulb, in the first portion of the duodenum and in the second portion of the duodenum. Biopsies were taken with a cold forceps for histology. Verification of patient identification for the specimen was done. Estimated blood loss was minimal. Impression: - No gross lesions in the entire esophagus. - Small hiatal hernia. - Gastroparesis. Biopsied. - Erythematous duodenopathy. Biopsied. Recommendation: - Discharge patient to home. - Resume previous diet. - Continue present medications. - Await pathology results. Procedure Code(s): --- Professional --- 75197, Esophagogastroduodenosco py, flexible, transoral; with biopsy, single or multiple CPT copyright 2021 [employer]. All rights reserved. The codes documented in this report are preliminary and upon wire bound box machine helper review may be revised to meet current compliance requirements. Mariano Rucker DO 10/22/2024 2:25:11 PM This report has been signed electronically. Number of Addenda: 0 Note Initiated On: 10/22/2024 1:40 PM 10/22/24 1425 Date Mariano Rucker DO Cosigner Signature: Date (if indicated) CC: Dr. Akin Elliott MD; Mariano Rucker DO Date Dictated: 10/22/24 1340 Date Transcribed: Soft Crab Shedder: (more content not included)... Normal [facility] H Pylori (initial)on 025 H Pylori (initial) ---- Patient Age/Sex Location Account Attending Physician AUSTINNAUNSAULO I 64/F EN [id number] Mariano Rucker DO Specimen: [id number] Received: 10/23/24 Status: CABRERA Wei Num: [id number] Spec Type: IMMUNO Subm Dr: Mariano Rucker DO PHYSICIAN INSTITUTION [place] [address] SPECIMEN INFORMATION: Tissue Source: B- Gastric antrum biopsy Clinical Info: Dysphagia, diverticulitis, abdominal pain Specimen Number: [id number] CPT code: 49061 METHODOLOGY: Deparaffinized sections of prefer/formalin-fixed tissue or PAP/DQ stained slides are incubated with monoclonal/polyclonal antibodies/oligonucleoti de probes. Localization is made via biotin free immunoperoxidase method. Appropriate controls are performed and reacted as expected. Results on target cell population are indicated in the following table: RESULTS: ANTIBODY / CLONE RESULT Block B H Pylori (polyclonal) negative These tests were developed and their performance characteristics determined by [facility]. They may not have been cleared or approved by the U.S. Food and Drug Administration. The FDA has determined that such clearance or approval is not necessary. The above immunohistochemical/dual RAGINI markers are ordered and reviewed by the Pathologist. INTERPRETATION: B. Gastric antrum, biopsy: Negative for Helicobacter pylori organisms. 10/24/2024 Signed (signature on file) Dr. Zane Chan MD 10/24/24 1334 [facility] Comment on above: Performed By: #### P H.PYLORI ####[facility] [id number] [facility] [place], [address] MR/POSTOP.ANE 10-22-2024 MR/POSTOP.[facility] Medical Records Department [address] [place] [address] Anesthesia Postop Eval I 10/22/241427 MR#: [id number] Acct: [id number] Name: SAULO GEIGER I Rep #: [id number] : 1960 64 From: Neal Stewart PCP: Dr. Akin Elliott MD Status:REG SDC Y Race: C Location: [place] [address] Anesthesia: Postop Eval I Current Vital Signs Temperature: 97.4 F Pulse Rate: 70 Blood Pressure: 113/78 Respiratory Rate: 16 Pulse Ox: 100 Oxygen Delivery Method: Room Air Assessment Airway patent: Yes Spontaneous unlabored respirations: Yes Mental status: Awake and Calm nausea: No Vomiting: No Anesthesia Complication: No Fluid Hydration Crystalloid volume administer (ml): 60 Total IV fluid infused: 60 Progress Note Anesthesia document: Postop Eval 1 completed: Yes 10/22/241428 Date Neal Hunt Signature: Date CC: Signed Normal [facility] MR/[id number] 10-22-2024 MR/POSTOPAN2 [facility] Medical Records Department [address] [place] [address] Anesthesia Postop Eval II 10/22/24 1553 MR#: [id number] Acct: [id number] Name: SAULO GEIGER I Rep #: [id number] : 1960 64 From: Daniel Najera MD PCP: Dr. Akin Elliott MD Status:DEP [facility] Y Race: C Location: EN Anesthesia Postop Eval I Sum Postop Eval Completion status Anesthesia document: Postop Eval 1 completed: Yes Anesthesia Postop Eval I Summary Anesthesia Postop Eval I Summary: Anesthesia Postop Eval I: Assessment Summary Airway patent Yes 10/22/24 14:29 [email or web address] Spontaneous unlabored Yes 10/22/24 14:29 [email or web address] respirations Mental status Awake,Calm 10/22/24 14:29 [email or web address] nausea No 10/22/24 14:29 [email or web address] Vomiting No 10/22/24 14:29 [email or web address] Anesthesia Postop Eval I: Fluid Summary Crystalloid volume administer 60 10/22/24 14:29 [email or web address] (ml) Colloids volume administered ( ml) Blood Product volume administered (ml) Total IV fluid infused 60 10/22/24 14:29 [email or web address] Anesthesia Postop Eval I: Summary Notes Anesthesia Complication No 10/22/24 14:29 [email or web address] Anesthesia Complication Comment: Post-operative progress note Anesthesia: Postop Eval II Evaluation Mental status: Awake Pain Level: 0 nausea: No Vomiting: No 10/22/24 1553 Date Daniel Najera MD Cosigner Signature: Date CC: Signed Normal [facility] Surgery Specimen Level Isaak 10-22-2024 Surgery Specimen Level IV Patient Age/Sex Location Account Attending Physician SAULO GEIGER I 64/F EN [id number] Mariano Rucker DO Specimen: [id number] Received: 10/22/24 Status: CABRERA Wei Num: [id number] Spec Type: COLON BX Subm Dr: Mariano Rucker DO HEADER OPERATION: Colonoscopy, EGD with biopsy PRE-OP DIAGNOSIS: Dysphagia, diverticulitis, abdominal pain TISSUE SUBMITTED: A- Duodenum biopsy, B- Gastric antrum biopsy MICROSCOPIC DIAGNOSIS A. Duodenum, biopsy: Fragments of small intestinal mucosa with focal blunting of villi, congestion and hemorrhage. B. Gastric antrum, biopsy: Mild gastritis. See microscopic description and comment. SJ.mr 10/24/2024 COMMENT B. The results of immunohistochemistry for Helicobacter pylori will be reported separately ([id number]). MICROSCOPIC DESCRIPTION Slides are reviewed. B. The specimen shows fragments of gastric mucosa with chronic inflammatory cell infiltrates in the lamina propria consisting of lymphocytes and plasma cells, consistent with mild chronic gastritis. GROSS DESCRIPTION A. Received in fixative is one container labeled with the patient's name and designated Duodenum biopsy. The specimen consists of two irregular fragments of light osborne soft tissue that in aggregate measure 1 x 0.3 x 0.2 cm. The specimen is totally submitted in one cassette. B. Received in fixative is one container labeled with the patient's name and designated Gastric antrum biopsy. The specimen consists of two irregular fragments of light osborne soft tissue that in aggregate measure 0.6 x 0.3 x 0.2 cm. The specimen is totally submitted in one cassette. CW. 10/23/2024 TC:3 CPT:88979c3 Patient Age/Sex Location Account Attending Physician SAULO GEIGER I 64/F MIRNA [id number] Mariano Rucker DO Signed (signature on file) Dr. Zane Chan MD 10/24/24 1214 Normal [facility] Comment on above: Performed By: #### P LACHO #### [facility] [address] [place], [place], [address] MR/PAT.Rita 10-20-2024 MR/PAT.FARA [facility] Medical Records Department [address] [place] [address] PAT - Anesthesia 10/20/24 1236 MR#: [id number] Acct: [id number] Name: SAULO GEIGER I Rep #: [id number] : 1960 64 From: Daniel Najera MD PCP: Dr. Akin Elliott MD Status:PRE [facility] Y Race: C Location: EN Pre-Assessment Diagnosis/Proposed Procedure Planned Operative Procedure(s): COLONOSCOPY/EGD Anesthesia History Anesthesia History - engineer station mainline: Anesthesia History - engineer station mainline Hx Hospitalization No 10/20/24 12:15 Any Problems With Anesthesia No 10/20/24 12:15 Cholinesterase deficiency No 10/20/24 12:15 You/Your Family Experience No 10/20/24 12:15 fever (hyperthermia) with Relationship Recent Exposure to Contagious No 08/28/18 07:39 Disease Does patient have nerve No 10/20/24 12:15 stimulator Patient instructed to have device shut off --Does patient have Pacemaker or ICD? When Was Last Pacemaker Check QUESTION #4 FULL TEXT: You/Your Family Experience fever (hyperthermia) with Anesthesia Last Oral Intake Last Oral intake: Last Oral Intake NPO since Meds taken in AM with sips of water? Meds patient instructed to take am of surgery PONV PONV - engineer station mainline: PONV - engineer station mainline Female Yes 10/20/24 12:15 HX of Motion Sickness No 10/20/24 12:15 HX of N/V After Surgery No 10/20/24 12:15 Non-Smoker Yes 10/20/24 12:15 Duration of Surgery greater No 10/20/24 12:15 than 60 minutes Number of Risk Factors 2 10/20/24 12:15 PONV Score Moderate Risk 10/20/24 12:15 Height Weight Height Weight: Anesthesia: Height Weight Height 5 ft 6 in 07/13/23 10:39 Respiratory Assessment Respiratory Assessment - engineer station mainline: Respiratory Tract Infection Hx - engineer station mainline Hx Respiratory Tract Infection No 10/20/24 12:15 STOP Sleep Apnea STOP Sleep Apnea - engineer station mainline: STOP Sleep Apnea - engineer station mainline Hx Hypertension Yes: CONTROLLED ON MED 10/20/24 12:15 Hx Sleep Apnea No 10/20/24 12:15 CPAP No 10/20/24 12:15 BIPAP Do you snore loudly (louder No 10/20/24 12:15 than talking or can be heard Do you often feel tired/ No 10/20/24 12:15 fatigued/ sleepy during daytime? Has anyone observed you stop No 10/20/24 12:15 breathing during sleep? STOP Results Negative 10/20/24 12:15 QUESTION #5 FULL TEXT : Do you snore loudly (louder than talking or can be heard through closed doors)? 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 Specify any problems Hx of Preganancy in last 3 No 10/20/24 12:15 Months Nurse Filling Out Transfusion VCHRISTIN 10/20/24 12:15 Questions: Date: 10/20/24 10/20/24 12:15 Time: 12:16 10/20/24 12:15 Patient unable to answer at this time (ie. confused, unrespo /Reproduction History /Reproductive History - engineer station mainline: /Reproductive Hx- engineer station mainline Hx Now Gestational Age (in weeks): EDC: Hx Hx Para Hx Section SAB [facility] Medical History (Updated 10/20/24 @ 12:15 by Za Cid) Post-menopausal Anxiety Back pain Injury of head and neck History of ulceration Gastric reflux Former smoker Shortness of breath on exertion Hypercholesteremia Esophageal reflux Disc displacement LLQ pain Dysphagia Home Medications ???Medication ???Instructions ???Recorded ???Last Taken ???Type diltiazem HCl 180 mg 180 mg PO DAILY headaches 05/15/14 08/28/18 06:00 History capsule,extended release 24 hr naratriptan 2.5 mg tablet 2.5 mg PO PRN 07/13/23 Unknown His tory pantoprazole 40 mg tablet,delayed 40 mg PO BID 07/13/23 Unknown His tory release promethazine 25 mg tablet 12.5 mg PO PRN 07/13/23 Unknown Hi story topiramate 100 mg tablet 200 mg PO BID 07/13/23 Unknown His tory cyclobenzaprine 10 mg tablet 10 mg PO HS 05/23/24 Unknown Histo ry loperamide 2 m (more content not included)... [facility] CNOVon 09-15-2024 CNOV Office Visit (INTMWS ) -------- SAULO GEIGER I ([id number]) 1960 F NFR Date Time Provider Department 09/15/24 1:00 PM AKIN ELLIOTT INTWS During your visit today, we recorded the following information about you: Temperature Pulse Respiration Blood pressure 97.8 degrees 74/minute 16/minute 126/78 Weight Height 61.8 kg 1.645 m Akin Elliott MD 10/19/2024 12:39 AM Signed This note was created using Atomic Reachriter. Subjective Saulo Geiger is a 64 year old female. HISTORY Saulo Geiger is a 64 year old lady here for yearly exam and follow up appointment. Saulo Geiger is a 64-year-old female with a history of chronic sinusitis and migraines, presenting for a yearly checkup and ongoing sinus issues. Saulo reports persistent sinus symptoms despite completing a course of prednisone prescribed by Dr. Rivera. Initially, she experienced significant improvement, but within 1-2 days after finishing the medication, symptoms returned. She describes her nasal discharge as like water and notes that her eyes appeared as if she were crying due to excessive tearing. Currently, the discharge from her eyes is thicker, and she frequently needs to wipe them. She continues to feel congested and observes yellow nasal discharge when blowing her nose. She is currently using Flonase and a generic loratadine. She also reports a throbbing, pounding sensation in her head, particularly noticeable when lying down. This sensation persists regardless of her position and is described as similar to a heartbeat. She denies checking her blood pressure during these episodes and does not consume caffeine at night. She is currently taking Topamax BID for migraine prophylaxis and has a prescription for Emerge, which was last filled in June with 3 refills remaining. She also has a prescription for Motrin, last filled in February with 1 refill remaining, and diltiazem, last filled in February. Additionally, she mentions taking Flexeril at bedtime for muscle spasms, but her prescription has no refills left since February. She also takes a natural sleep aid, the name of which she cannot recall. She reports low energy and difficulty sleeping last night, spending most of the day in bed yesterday. She has a history of a low immune system and has been exposed to a friend with the flu and another friend with COVID-19. She declines HIV screening and is unsure about receiving the pneumonia vaccine today. She is concerned about her medical bills and has not received an explanation of benefits from her insurance. She has been told she owes $700 at the clinic but has not received a bill. She is also concerned about her 's medical bills, as he was recently treated for 17 kidney stones and has 2 aneurysms. PAST MEDICAL HISTORY Diagnosis Date Bee sting allergy 04/28/2008 Concussion with no loss of consciousness Displacement of intervertebral disc, site unspecified, without myelopathy 11/30/2006 [facility] claim Disturbance of skin sensation Esophageal reflux Headaches migraines Hypercholesteremia Mental disorder anxiety Multiple rib fractures 2012 Fell down stairs to basement-- 5th and 6th rib fractures and left great toe fracture Snoring Sprain of lumbosacral (joint) (ligament) Sprain of neck [facility] claim Sprain of thoracic region [facility] claim Tubular adenoma of colon 07/29/2015 Dr. Caban Variants of migraine, not elsewhere classified, without mention of intractable migraine without mention of status migrainosus Current Outpatient Medications Medication Sig scopolamine (TRANSDERM-SCOP) patch 1.5 mg/72 hr (delivers 1 mg over 3 days) Apply 1 Patch as directed every 72 hours. From [facility]. ALPRAZolam (XANAX) 0.5 mg tablet Take 0.5 mg by mouth at bedtime as needed. naratriptan (AMERGE) 2.5 mg tablet Take 1 tablet (2.5 mg) by mouth as needed. 2.5 mg at onset of headache, may repeat in 4 hours if needed diclofenac, EC, (VOLTAREN) 50 mg EC tablet Take 1 tablet by mouth two times a day as needed. fluticasone (FLONASE) 50 mcg/actuation nasal spray Use 2 Sprays in each nostril once daily. Rinse mouth after use. cholecalciferol (VITAMIN D3) 1,000 unit tab tablet Take 1 tablet by mouth once daily. loperamide (ANTI-DIARRHEAL) 2 mg cap(s) Take 1 capsule by mouth four times a day as needed for diarrhea. dilTIAZem CD (CARTIA XT) 180 mg 24 hr capsule Take 1 capsule by mouth once daily. topiramate (TOPAMAX) 100 mg tablet TAKE 2 TABLETS TWICE A DAY IN THE MORNING AND AT BEDTIME pantoprazole DR (PROTONIX) 40 mg tablet Take 1 tablet by mouth two times a day before meals at 6 am and 4 pm. Take on empty stomach, 1/2 hr before meal. cyclobenzaprine (FLEXERIL) 10 mg tablet Take 1 tablet by mouth at bedtime as needed for muscle spasm or pain. ibuprofen (MOTRIN) 800 mg tablet Take 1 tablet by mouth every 8 hours as nee (more content not included)... [facility] SAULO GEIGER I ([id number]) 1960 F NFR Date Time Provider Department 09/05/24 AKIN ELLIOTT INTWS During your visit today, we recorded the following information about you: Chyna Sotelo RN 09/05/2024 10:30 AM Signed Patient was seen by Dr. Rivera on 08/28/2024 for acute non-recurrent sinusitis. Patient calling today to report that symptoms (sinus pain/pressure, drainage) are not any better. Patient reports that she thought she was starting to feel better but one day after stopping antibiotic all symptoms have remained the same. Patient requesting another round of antibiotics be sent to [facility]. Recommended follow up appt per OV notes. Patient declined. Requesting provider review. Patient reports if second round of antibiotics doesn't work then she would come in for appt. Patient requesting this be looked at today. Forwarding to PCP. BERNARDO Moore Liza D, MD 09/07/2024 6:41 PM Signed Patient has been on multiple antibiotic since June Augmentin, Doxycycline,Bactrim, Zpak and cephalexin without resolution of symptoms. Some of them she did not tolerate due to GI side effects. Check on Sunday if having symptoms still (and what those symptoms are if so). Recommend ENT evaluation if symptoms were not improving over the weekend even without an antibiotic. Will consider extending course of cephalexin if symptoms consistent with bacterial infection. Does have / office appointment with me on schedule. Symptoms like watery eyes could be more from allergic rhinitis and conjunctivitis rather than bacterial sinus infection. Clarify if sinusitis and eye symptoms got much better while on prednisone or if symptoms got worse after finishing prednisone. Victoria Walsh MA 09/08/2024 12:42 PM Signed Left message for return call. Charu Lopez LPN 09/16/2024 8:57 AM Signed Spoke with patient and she stated that this was addressed 09/15/24 during office visit with Dr. Elliott. Encounter closed. Allergies As of Date: 09/05/2024 Noted Allergy Reaction BEE VENOM PROTEIN (HONEY BEE) 07/30/2023 16 - Unknown MORPHINE 04/03/2017 11 - Vomiting RELAFEN (NABUMETONE) 11/26/2008 6 - Diarrhea Comments: 2005 tried med VENOM-HONEY BEE 01/28/2023 16 - Unknown ZOLPIDEM 01/28/2023 14 - Other: See Comments Date Reviewed: 09/04/2024 Reviewed by: Britni Loera, RT(R) - Partially Assessed Reason for Visit: Patient Question [7174] Prescriptions as of 09/16/2024 - ascorbic acid, vitamin C, 500 mg cap Take 1 capsule by mouth once daily. - predniSONE (DELTASONE) 10 mg tablet 3 tabs x 3 days, 2 tabs x 3 days, then 1 tab x3 days with food. - cyclobenzaprine (FLEXERIL) 10 mg tablet Take 1 tablet by mouth at bedtime as needed for muscle spasm or pain. - scopolamine (TRANSDERM-SCOP) patch 1.5 mg/72 hr (delivers 1 mg over 3 days) Apply 1 Patch as directed every 72 hours. From [facility]. - ALPRAZolam (XANAX) 0.5 mg tablet Take 0.5 mg by mouth at bedtime as needed. - naratriptan (AMERGE) 2.5 mg tablet Take 1 tablet (2.5 mg) by mouth as needed. 2.5 mg at onset of headache, may repeat in 4 hours if needed - diclofenac, EC, (VOLTAREN) 50 mg EC tablet Take 1 tablet by mouth two times a day as needed. - fluticasone (FLONASE) 50 mcg/actuation nasal spray Use 2 Sprays in each nostril once daily. Rinse mouth after use. - cholecalciferol (VITAMIN D3) 1,000 unit tab tablet Take 1 tablet by mouth once daily. - loperamide (ANTI-DIARRHEAL) 2 mg cap(s) Take 1 capsule by mouth four times a day as needed for diarrhea. - dilTIAZem CD (CARTIA XT) 180 mg 24 hr capsule Take 1 capsule by mouth once daily. - topiramate (TOPAMAX) 100 mg tablet TAKE 2 TABLETS TWICE A DAY IN THE MORNING AND AT BEDTIME - pantoprazole DR (PROTONIX) 40 mg tablet Take 1 tablet by mouth two times a day before meals at 6 am and 4 pm. Take on empty stomach, 1/2 hr before meal. - ibuprofen (MOTRIN) 800 mg tablet Take 1 tablet by mouth every 8 hours as needed for pain. Take with food. Problem List As Of Date 09/05/2024 Noted Resolved Concussion with no loss of consciousness [S06.0* 07/09/2019 Sprain of neck [S13.9XXA] 07/09/2019 Sprain of thoracic region [S23.9XXA] 07/09/2019 Migraine variant [G43.809] Disturbance of skin sensation [R20.9] 07/09/2019 ESOPHAGEAL REFLUX [K21.9] Displacement of intervertebral disc of thoracol*11/30/2006 Bee sting allergy [T63.91XA] 04/28/2008 Sprain of lumbosacral (joint) (ligament) [S33.9*09/29/2008 07/09/2019 Painful respiration [R07.1] 10/19/2008 08/21/2013 Bruxism (teeth grinding) [F45.8] 08/16/2011 Lumbago [M54.50] 07/03/2012 07/09/2019 Cervicalgia [M54.2] 08/02/2012 DDD (degenerative disc disease), lumbar [M51.36*08/02/2012 07/09/2019 Lumbar spondylosis [M47.816] 08/02/2012 07/09/2019 Chronic back pain [M54.9, G89.29] 08/02/2012 Hyperc (more content not included)... Normal [facility] GASTRIC EMPTYING SOLIDon 09-04-2024 NM GASTRIC EMPTYING SOLID * * *Final Report* * * DATE OF EXAM: Sep 04 2024 12:15PM ANNIE [id number] - NM GASTRIC EMPTYING SOLID / PROCEDURE REASON: Nausea and vomiting, unspecified vomiting type * * * * Physician Interpretation * * * * EXAM: SOLID MEAL GASTRIC EMPTYING STUDY HISTORY: Nausea and vomiting, unspecified vomiting type Assess for abnormal gastric emptying of a solid meal. TECHNIQUE: 1.08 millicuries of Tc-99m sulfur colloid was administered PO in a meal consisting of 4 oz Egg Beaters, 1 slices of toast, 1/2 oz jelly, and 8 oz water, consumed over 5 to 10 minutes. Planar anterior and posterior images of the gastric region were obtained at 0, 1, 2, and 4 hours after ingestion. RESULTS: Solid meal gastric retention values: * 65% retention at 1 hour (normal range, 37-90%; accelerated emptying defined as <30% at 1 hour) * 55% retention at 2 hours (normal range, 30-60%) * 9% retention at 4 hours (normal range, 0-10%) IMPRESSION: Normal gastric emptying rate for the solid meal. Soft Crab Shedder: SUZANNE Transcribe Date/Time: Sep 04 2024 12:43P Dictated by : YENIFER CARBAJAL MD This examination was interpreted and the report reviewed and electronically signed by: YENIFER CARBAJAL MD on Sep 04 2024 12:44PM EST [id number] Normal [facility] Stomach Views for gastric emptying solid phase W radionuclide Geno 09-04-2024 IMPRESSION: Normal gastric emptying rate for the solid meal. [facility] Crab Shedder[facility] Transcribe Date/Time: Sep 04 2024 12:43P Dictated by : YENIFER CARBAJAL MD This examination was interpreted and the report reviewed and electronically signed by: YENIFER CARBAJAL MD on Sep 04 2024 12:44PM EST DIVISION OF RADIOLOGY * * *Final Report* * * DATE OF EXAM: Sep 04 2024 12:15PM ANNIE [id number] - NM GASTRIC EMPTYING SOLID / PROCEDURE REASON: Nausea and vomiting, unspecified vomiting type * * * * Physician Interpretation * * * * EXAM: SOLID MEAL GASTRIC EMPTYING STUDY HISTORY: Nausea and vomiting, unspecified vomiting type Assess for abnormal gastric emptying of a solid meal. TECHNIQUE: 1.08 millicuries of Tc-99m sulfur colloid was administered PO in a meal consisting of 4 oz Egg Beaters, 1 slices of toast, 1/2 oz jelly, and 8 oz water, consumed over 5 to 10 minutes. Planar anterior and posterior images of the gastric region were obtained at 0, 1, 2, and 4 hours after ingestion. RESULTS: Solid meal gastric retention values: * 65% retention at 1 hour (normal range, 37-90%; accelerated emptying defined as <30% at 1 hour) * 55% retention at 2 hours (normal range, 30-60%) * 9% retention at 4 hours (normal range, 0-10%) DIVISION OF RADIOLOGY Provider, [facility] H[facility] - 09/04/2024 * * *Final Report* * * DATE OF EXAM: Sep 04 2024 12:15PM [address] GASTRIC EMPTYING SOLID / PROCEDURE REASON: Nausea and vomiting, unspecified vomiting type * * * * Physician Interpretation * * * * EXAM: SOLID MEAL GASTRIC EMPTYING STUDY HISTORY: Nausea and vomiting, unspecified vomiting type Assess for abnormal gastric emptying of a solid meal. TECHNIQUE: 1.08 millicuries of Tc-99m sulfur colloid was administered PO in a meal consisting of 4 oz Egg Beaters, 1 slices of toast, 1/2 oz jelly, and 8 oz water, consumed over 5 to 10 minutes. Planar anterior and posterior images of the gastric region were obtained at 0, 1, 2, and 4 hours after ingestion. RESULTS: Solid meal gastric retention values: * 65% retention at 1 hour (normal range, 37-90%; accelerated emptying defined as <30% at 1 hour) * 55% retention at 2 hours (normal range, 30-60%) * 9% retention at 4 hours (normal range, 0-10%) IMPRESSION IMPRESSION: Normal gastric emptying rate for the solid meal. Soft Crab Shedder[facility] Transcribe Date/Time: Sep 04 2024 12:43P Dictated by : YENIFER CARBAJAL MD This examination was interpreted and the report reviewed and electronically signed by: YENIFER CARBAJAL MD on Sep 04 2024 12:44PM [facility] Radiology Study observation (narrative) Ismael merino [facility] Stomach Views for gastric emptying solid phase W radionuclide POOrdered By: [facility] Provider on 09-04-2024 [facility] CNOVon 08-28-2024 CNOV Office Visit (INTMWS ) -------- SAULO GEIGER I ([id number]) 1960 F NFR Date Time Provider Department 08/28/24 2:00 PM NIRAV RIVERA INTMWS During your visit today, we recorded the following information about you: Temperature Pulse Respiration Blood pressure 99.9 degrees 92/minute 16/minute 96/60 Weight 61.7 kg Nirav Rivera MD 08/28/2024 2:57 PM Signed This note was created using [employer] Reachriter. Subjective Patient presents with: ED Follow-up Saulo Geiger is a 64 year old female. She was in the ER for chest and epigastric pain. Troponins were negative. She continued with sinus congestion, yellowish drainage, cough, feverishness, headache, watery eyes, and scratchy throat for 2 weeks. She's had various antibiotics for sinus infections most of which were not tolerated due to GI side effects. She was referred to [facility] for dysphagia, nausea and was scheduled for more tests. GI provider started her on transderm scopolamine. She seemed to indicate sucralfate was prescribed but I did not see this in medication reconciliation. Review of Systems Per HPI. 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 naratriptan (AMERGE) 2.5 mg tablet Take 1 tablet (2.5 mg) by mouth as needed. 2.5 mg at onset of headache, may repeat in 4 hours if needed promethazine (PHENERGAN) 25 mg tablet Take 0.5-1 tablets by mouth every 6 hours as needed. diclofenac, EC, (VOLTAREN) 50 mg EC tablet Take 1 tablet by mouth two times a day as needed. fluticasone (FLONASE) 50 mcg/actuation nasal spray Use 2 Sprays in each nostril once daily. Rinse mouth after use. cholecalciferol (VITAMIN D3) 1,000 unit tab tablet Take 1 tablet by mouth once daily. loperamide (ANTI-DIARRHEAL) 2 mg cap(s) Take 1 capsule by mouth four times a day as needed for diarrhea. dilTIAZem CD (CARTIA XT) 180 mg 24 hr capsule Take 1 capsule by mouth once daily. topiramate (TOPAMAX) 100 mg tablet TAKE 2 TABLETS TWICE A DAY IN THE MORNING AND AT BEDTIME pantoprazole DR (PROTONIX) 40 mg tablet Take 1 tablet by mouth two times a day before meals at 6 am and 4 pm. Take on empty stomach, 1/2 hr before meal. cyclobenzaprine (FLEXERIL) 10 mg tablet Take 1 tablet by mouth at bedtime as needed for muscle spasm or pain. ibuprofen (MOTRIN) 800 mg tablet Take 1 tablet by mouth every 8 hours as needed for pain. Take with food. No current facility-administered medications for this visit. Objective BP 96/60 (BP Site: Left Arm, BP Position: Sitting, BP Cuff Size: Large Adult) Pulse 92 Temp 37.7 ?C (99.9 ?F) (Temporal) Resp 16 Wt 61.7 kg (136 lb 0.4 oz) LMP 10/18/2006 BMI 23.35 kg/m? Physical Exam Constitutional: General: She is not in acute distress. Appearance: She is ill-appearing. She is not toxic-appearing. HENT: Right Ear: Tympanic membrane normal. Left Ear: Tympanic membrane normal. Nose: Mucosal edema and congestion present. Right Turbinates: Swollen. Left Turbinates: Swollen. Right Sinus: Maxillary sinus tenderness present. Left Sinus: Maxillary sinus tenderness present. Cardiovascular: Rate and Rhythm: Normal rate and regular rhythm. Pulmonary: Effort: No respiratory distress. Breath sounds: No wheezing or rales. Musculoskeletal: Right lower leg: No edema. Left lower leg: No edema. Lymphadenopathy: Cervical: No cervical adenopathy. Neurological: Mental Status: She is alert. ER report reviewed. Assessment and Plan 1. Acute non-recurrent sinusitis, unspecified location - ICD9: 461.9, ICD10: J01.90 (primary diagnosis) - Will begin treatment with as per antibiotic as written, see orders - CEPHALEXIN 500 MG CAPSULE - PREDNISONE 20 MG TABLET Discussed medication dosage, usage, goals of therapy, and side effects. 2. Watery eyes - ICD9: 375.20, ICD10: H04.203 See above. 3. Dysphagia, unspecified type - ICD9: 787.20, ICD10: R13.10 Medication list updated. - SCOPOLAMINE 1 MG OVER 3 DAYS TRANSDERMAL PATCH 4. Gastroesophageal reflux disease, unspecified whether esophagitis present - ICD9: 530.81, I (more content not included)... [facility] -------- SAULO GEIGER I ([id number]) 1960 F NFR Date Time Provider Department 08/27/24 AKIN ELLIOTT INTMWS During your visit today, we recorded the following information about you: Misa Nicole RN 08/27/2024 11:46 AM Signed Pt called in and reports she was in [facility] ER 08/25/24 for chest pain. It sounds like they thought it was more gastric than cardiac. They sent her home with a Scopolamine patch and Dicyclomine 10 mg BID. Pt state she threw up after she left the ER after she ate. Then yesterday she was bringing up thick mucousy stuff. Pt states she took the Scopolamine patch off, but didn't put another one on. 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 Pt scheduled with Dr Rivera tomorrow. Please make sure provider has records from [facility] ER. Neyda Templeton LPN 08/27/2024 1:48 PM Signed Records obtained from [facility]. Neyda Templeton LPN Allergies As of Date: 08/27/2024 Noted Allergy Reaction BEE VENOM PROTEIN (HONEY BEE) 07/30/2023 16 - Unknown MORPHINE 04/03/2017 11 - Vomiting RELAFEN (NABUMETONE) 11/26/2008 6 - Diarrhea Comments: 2005 tried med VENOM-HONEY BEE 01/28/2023 16 - Unknown ZOLPIDEM 01/28/2023 14 - Other: See Comments Date Reviewed: 08/14/2024 Reviewed by: Cecilia Sparks, ENGINE MANAGER.BIOMASS PLANT TECHNICIAN - Fully Assessed Reason for Visit: Appointment [186] Patient Update [1234] Prescriptions as of 08/27/2024 - ALPRAZolam (XANAX) 0.5 mg tablet Take 0.5 mg by mouth at bedtime as needed. - naratriptan (AMERGE) 2.5 mg tablet Take 1 tablet (2.5 mg) by mouth as needed. 2.5 mg at onset of headache, may repeat in 4 hours if needed - promethazine (PHENERGAN) 25 mg tablet Take 0.5-1 tablets by mouth every 6 hours as needed. - diclofenac, EC, (VOLTAREN) 50 mg EC tablet Take 1 tablet by mouth two times a day as needed. - fluticasone (FLONASE) 50 mcg/actuation nasal spray Use 2 Sprays in each nostril once daily. Rinse mouth after use. - cholecalciferol (VITAMIN D3) 1,000 unit tab tablet Take 1 tablet by mouth once daily. - loperamide (ANTI-DIARRHEAL) 2 mg cap(s) Take 1 capsule by mouth four times a day as needed for diarrhea. - dilTIAZem CD (CARTIA XT) 180 mg 24 hr capsule Take 1 capsule by mouth once daily. - topiramate (TOPAMAX) 100 mg tablet TAKE 2 TABLETS TWICE A DAY IN THE MORNING AND AT BEDTIME - pantoprazole DR (PROTONIX) 40 mg tablet Take 1 tablet by mouth two times a day before meals at 6 am and 4 pm. Take on empty stomach, 1/2 hr before meal. - cyclobenzaprine (FLEXERIL) 10 mg tablet Take 1 tablet by mouth at bedtime as needed for muscle spasm or pain. - ibuprofen (MOTRIN) 800 mg tablet Take 1 tablet by mouth every 8 hours as needed for pain. Take with food. Problem List As Of Date 08/27/2024 Noted Resolved Concussion with no loss of consciousness [S06.0* 07/09/2019 Sprain of neck [S13.9XXA] 07/09/2019 Sprain of thoracic region [S23.9XXA] 07/09/2019 Migraine variant [G43.809] Disturbance of skin sensation [R20.9] 07/09/2019 ESOPHAGEAL REFLUX [K21.9] Displacement of intervertebral disc of thoracol*11/30/2006 Bee sting allergy [T63.91XA] 04/28/2008 Sprain of lumbosacral (joint) (ligament) [S33.9*09/29/2008 07/09/2019 Painful respiration [R07.1] 10/19/2008 08/21/2013 Bruxism (teeth grinding) [F45.8] 08/16/2011 Lumbago [M54.50] 07/03/2012 07/09/2019 Cervicalgia [M54.2] 08/02/2012 DDD (degenerative disc disease), lumbar [M51.36*08/02/2012 07/09/2019 Lumbar spondylosis [M47.816] 08/02/2012 07/09/2019 Chronic back pain [M54.9, G89.29] 08/02/2012 Hypercholesteremia [E78.00] Bright red rectal bleeding [K62.5] 07/29/2015 07/29/2015 Nausea [R11.0] 07/29/2015 07/29/2015 Non-cardiac chest pain [R07.89] 04/03/2017 07/09/2019 Displacement of cervical intervertebral disc wi*05/06/2018 Cervicothoracic disc displacement [M50.23] Diarrhea [R19.7] 06/28/2023 Dysphagia [R13.10] 05/08/2024 Encounter Status:Closed by MISA NICOLE on 08/27/24 Normal [facility] 12 Lead EKGon 08-25-2024 12 Lead EKG [facility] Cardiovascular Services [address] [place] [address] 12 Lead EKG 08/25/24 1236 MR#: [id number] Acct: [id number] Name: SAULO GEIGER I Rep #: [id number] : 1960 64 From: Duncan Haney MD Attending Dr: Status: DEP ER Ordering Dr: Richmond Gibson MD Date: 08/25/24 Location: ED Sex: F C Admitted: Test Reason : CP Blood Pressure : */* mmHG Vent. Rate : 90 BPM Atrial Rate : 90 BPM P-R Int : 162 ms QRS Dur : 84 ms QT Int : 356 ms P-R-T Axes : 65 32 45 degrees QTcB Int : 435 ms Normal sinus rhythm Normal ECG Confirmed by LEONIE BULLARD, DUNCAN ([id number]), photo editor MISA MIJARES ([id number]) on 08/27/2024 6:32:50 AM Referred By: DEEPAK/JS Confirmed By: DUNCAN HANEY MD 08/27/24 0632 Date Duncan Haney MD CC: Dr. Akin Elliott MD; Dr. Richmond Gibson MD Signed Normal [facility] Basic Metabolic Profile (BMP )on 08-25-2024 BUN/CRE 24.1 RATIO High 10-20 [facility] Comment on above: Order Comment: 1 Y Performed By: #### L 100.0100, L501.5425, L500.2500 #### [facility] [address] [place], [address] CA,Total 9.4 mg/dL Normal 8.5-10.1 [facility] Comment on above: Order Comment: 1 Y Performed By: #### L 100.0100, L501.5425, L500.2500 #### [facility] [address] [place], [address] Chloride [Moles/Vol] 114 mmol/L High 98-107 [facility] Comment on above: Order Comment: 1 Y Performed By: #### L 100.0100, L501.5425, L500.2500 #### [facility] [address] [place], [address] CO2 [Moles/Vol] 21.0 mmol/L Normal 21.0-32.0 [facility] Comment on above: Order Comment: 1 Y Performed By: #### L 100.0100, L501.5425, L500.2500 #### [facility] [address] [place], [address] Creatinine [Mass/Vol] 1.37 mg/dL High 0.55-1.02 [facility] Comment on above: Order Comment: 1 Y Result Comment: The validity of the calculated GFR GFRAA in patients over 70 years has not been determined. Clinical correlation is essential. Performed By: #### L 100.0100, L501.5425, L500.2500 #### [facility] [address] [place], [address] EST GFR - AA 50 mL/min Low >60 [facility] Comment on above: Order Comment: 1 Y Result Comment: Afri can Vietnamese GFR Calc Performed By: #### L 100.0100, L501.5425, L500.2500 #### [facility] [address] [place], [address] GAP 6 Normal 5-15 [facility] Comment on above: Order Comment: 1 Y Performed By: #### L 100.0100, L501.5425, L500.2500 #### [facility] [address] [place], [address] GFR/1.73 sq M.predicted among non-blacks MDRD (S/P/Bld) [Vol rate/Area] 42 mL/min/{1.73_m2} Low >60 [facility] Comment on above: Order Comment: 1 Y Result Comment: Non- GFR Calc Performed By: #### L 100.0100, L501.5425, L500.2500 #### [facility] [address] [place], [address] Glucose [Mass/Vol] 110 mg/dL High 74-106 [facility] Comment on above: Order Comment: 1 Y Result Comment: Fast ing Glucose result from 100 to 125 mg/dL suggests IMPAIRED HOMEOSTASIS per A.D.A. criteria. Performed By: #### L 100.0100, L501.5425, L500.2500 #### [facility] [address] [place], [address] Potassium [Moles/Vol] 3.7 mmol/L Normal 3.5-5.1 [facility] Comment on above: Order Comment: 1 Y Performed By: #### L 100.0100, L501.5425, L500.2500 #### [facility] [address] [place], [address] Sodium [Moles/Vol] 141 mmol/L Normal 136-145 [facility] Comment on above: Order Comment: 1 Y Performed By: #### L 100.0100, L501.5425, L500.2500 #### [facility] [address] [place], [address] Urea nitrogen [Mass/Vol] 33 mg/dL High 7-18 [facility] Comment on above: Order Comment: 1 Y Performed By: #### L 100.0100, L501.5425, L500.2500 #### [facility] [address] [place], [address] CBC W/Diff, Automatedon 12-1 Absolute Lymph 1.32 X10 3/uL Normal 0.83-4.51 [facility] Comment on above: Performed By: #### L 100.0100, L501.5425, L500.2500 #### [facility] [address] [place], [address] Absolute Neut 4.0 X10 3/uL Normal 2.0-7.7 [facility] Comment on above: Performed By: #### L 100.0100, L501.5425, L500.2500 #### [facility] [address] [place], [address] Basophils/100 WBC (Bld) 0.7 % Normal 0-1 [facility] Comment on above: Performed By: #### L 100.0100, L501.5425, L500.2500 #### [facility] [address] [place], [address] Eosinophils/100 WBC (Bld) 0.9 % Normal 0-5 [facility] Comment on above: Performed By: #### L 100.0100, L501.5425, L500.2500 #### [facility] [address] [place], [address] Erythrocyte distribution width (RBC) [Ratio] 12.9 % Normal 11.6-14.6 [facility] Comment on above: Performed By: #### L 100.0100, L501.5425, L500.2500 #### [facility] [address] [place], [address] Hematocrit (Bld) [Volume fraction] 43.7 % Normal 37-47 [facility] Comment on above: Performed By: #### L 100.0100, L501.5425, L500.2500 #### [facility] [address] [place], [address] Hemoglobin (Bld) [Mass/Vol] 14.2 g/dL Normal 12.0-15.0 [facility] Comment on above: Performed By: #### L 100.0100, L501.5425, L500.2500 #### [facility] [address] [place], [address] IG% 0.300 Normal 0.0-0.9 [facility] Comment on above: Result Comment: IG% - Immature Granulocytes (promyelocytes, myelocytes and metamyelocytes) > 1% indicates that a LEFT SHIFT is Present. Performed By: #### L 100.0100, L501.5425, L500.2500 #### [facility] [address] [place], [address] Lymphocytes/100 WBC (Bld) 22.6 % Normal 19-41 [facility] Comment on above: Performed By: #### L 100.0100, L501.5425, L500.2500 #### [facility] [address] [place], [address] MCH (RBC) [Entitic mass] 32.3 pg High 27.0-32.0 [facility] Comment on above: Performed By: #### L 100.0100, L501.5425, L500.2500 #### [facility] [address] [place], [address] MCHC (RBC) [Mass/Vol] 32.5 g/dL Normal 32-36 [facility] Comment on above: Performed By: #### L 100.0100, L501.5425, L500.2500 #### [facility] [address] [place], [address] MCV (RBC) [Entitic vol] 99.3 fL High 81-99 [facility] Comment on above: Performed By: #### L 100.0100, L501.5425, L500.2500 #### [facility] [address] [place], [address] Monocytes/100 WBC (Bld) 6.7 % Normal 0-10 [facility] Comment on above: Performed By: #### L 100.0100, L501.5425, L500.2500 #### [facility] [address] [place], [address] Neutrophils/100 WBC (Bld) 68.8 % Normal 47-70 [facility] Comment on above: Performed By: #### L 100.0100, L501.5425, L500.2500 #### [facility] [address] [place], [address] Nucleated RBC (Bld) [#/Vol] 0 10*3/uL Normal 0-5 [facility] Comment on above: Performed By: #### L 100.0100, L501.5425, L500.2500 #### [facility] [address] [place], [address] Platelet mean volume (Bld) [Entitic vol] 9.5 fL Normal 6.2-12.0 [facility] Comment on above: Performed By: #### L 100.0100, L501.5425, L500.2500 #### [facility] [address] [place], [address] Platelets (Bld) [#/Vol] 265 10*3/uL Normal 150-450 [facility] Comment on above: Performed By: #### L 100.0100, L501.5425, L500.2500 #### [facility] [address] [place], [address] RBC (Bld) [#/Vol] 4.40 10*6/uL Normal 4.2-5.4 [facility] Comment on above: Performed By: #### L 100.0100, L501.5425, L500.2500 #### [facility] [address] [place], [address] RDW SD 47.8 fl High 35.1-43.9 [facility] Comment on above: Performed By: #### L 100.0100, L501.5425, L500.2500 #### [facility] [address] [place], [address] WBC (Bld) [#/Vol] 5.8 10*3/uL Normal 4.4-11.0 [facility] Comment on above: Performed By: #### L 100.0100, L501.5425, L500.2500 #### [facility] [address] [place], [address] Chest 1 View (Portable)on Chest 1 View (Portable) [facility] Imaging Services [address] [place] [address] Chest 1 View (Portable) MR#: [id number] Acct: [id number] Name: SAULO GEIGER I Rep #: [id number] : 1960 F 64 From: Will lopez MD PCP: Dr. Akin Elliott MD Status: REG ER Study: Chest 1 View (Portable) Date of Exam: 08/25/24 Exam# [id number] Ordering Dr: Richmond Gibson MD [id number] STUDY: X-RAY CHEST REASON FOR EXAM: Female, 64 years old. Chest pain TECHNIQUE: Single AP portable view of the chest. COMPARISON: Comparison is made with prior study dated January 28, 2023. FINDINGS: EKG electrodes are seen. The lungs are clear and expanded. There is no demonstrated pleural abnormality. Normal size heart. Normal mediastinum and shaista. Normal visualized pulmonary arteries. Normal visualized aortic arch and descending thoracic aorta. Normal visualized thoracic spine. Once again, there is evidence of healed bilateral rib fractures. There is no demonstrated abnormality of the visualized soft tissue structures of the upper abdomen. RAD/Chest 1 View (Portable) IMPRESSION: No acute abnormality is seen. Electronically Signed: Will Arango MD at 14:02 EST , CC: Dr. Akin Elliott MD; Dr. Richmond Gibson MD Soft Crab Shedder: Signed Normal [facility] Emergency Department Summary on 08-25-2024 Emergency Department Summary [facility] Medical Records Department [address] [place] [address] Emergency Department Summary 08/25/24 MR#: [id number] Acct: [id number] Name: SAULO GEIGER I Rep #: [id number] : 1960 64 From: Richmond Gibson MD PCP: Dr. Akin Elliott MD Status:REG ER Location: ED HPI History of Present Illness Chief Complaint: Chest Pain Detail of Chief Complaint: Tight sensation subxiphoid region that started 2 hours prior to presentatio Informant: patient Onset/Context/Timing Onset: Today and Hours Activity at onset: sudden Timing: Continuous Quality: Positive for Tightness Location: - (Epigastric/subxiphoid) Current Severity: Moderate Maximum Severity: Severe Worsened By: Movement of Torso and Palpation; Not Worsened By Exertion, Movement of Arm, Eating, Breathing or Coughing Relieved By: Nothing Associated Symptoms: Positive for Diaphoresis (With onset.); Negative for Nausea, Vomiting, Dyspnea, Cough, Fever, Lightheadedness, Acid Reflux or Palpitations Narrative Narrative: Patient is a 64-year-old woman with history of prediabetes, diverticulitis, hypertension who presents with tightness in the epigastric area without radiation. She endorses slight diaphoresis with the onset of the pain. She denies known history of coronary artery disease. She does have a history of reflux. This is different than her reflux pain. She denies black or maroon-colored stool. She has had no vomiting. She denies history of VTE. Denies leg pain, swelling or discoloration. She has no risk factors for VTE. Prior Similar Symptoms: No Recent Illness/Hospitalization: No CVD Risk Factors: Positive for Hypertension and Smoking (Quit approximately 8 years ago.); Negative for Diabetes, Hypercholesterolemia or Family History 1' PE Risk Factors: Negative for Recent Travel/Surgery, Recent Immobilization, Prior DVT or PE, Cancer or OCP + Smoking + >/=35 TAD Risk Factors: Positive for Hypertension; Negative for Marfan's Syndrome or Family History PFSH PFSH Medical History Hypercholesteremia Esophageal reflux Disc displacement LLQ pain Dysphagia Home Medications ???Medication ???Instructions ???Recorded ???Last Taken ???Type diltiazem HCl 180 mg 180 mg PO DAILY headaches 05/15/14 08/28/18 06:00 History capsule,extended release 24 hr topiramate 200 mg tablet 400 mg PO BID 05/15/14 08/28/18 06:00 History naratriptan 2.5 mg tablet mg PO 07/13/23 Unknown History pantoprazole 40 mg tablet,delayed mg PO 07/13/23 Unknown History release promethazine 25 mg tablet mg PO 07/13/23 Unknown History topiramate 100 mg tablet mg PO 07/13/23 Unknown History cyclobenzaprine 10 mg tablet 10 mg PO HS 05/23/24 Unknown History loperamide 2 mg capsule 2 mg PO Q4H PRN 05/23/24 Unknown History dicyclomine 10 mg capsule 10 mg PO BID PRN abdominal pain 08/15/24 Unknown Rx #30 caps scopolamine base 1 mg over 3 days 1 patch transdermal Q3D PRN nausea 08/15/24 Unknown Rx transdermal patch #4 ea Allergy/AdvReac Type Severity Reaction Status Date / Time nabumetone (From Relafen) Allergy Intermediate Other Verified 08/25/24 12:31 venom-honey bee (bee venom Allergy Unknown Verified 08/25/24 12:31 (honey bee)) morphine AdvReac Nausea Verified 08/25/24 12:31 zolpidem (From Ambien) AdvReac Other Verified 08/25/24 12:31 Family History Mother Heart disease CVA (cerebral vascular accident) Father Cancer Sister Diabetes Surgical History History of cholecystectomy H/O tubal ligation H/O colonoscopy Social History Smoking Status: Former smoker quit date: 07/21/15 alcohol intake: current alcohol intake frequency: holidays/special occasions only substance use type: does not use ROS ROS ED Constitutional Constitutional ED: Denies chills, fever(s), subjective or sweats Eyes Eyes: Reports none ENT ENT ED: Denies rhinorrhea or sore throat Cardiovascular Cardiovascular: Reports as per HPI; Denies orthopnea or paroxysmal nocturnal dyspnea Respiratory/Chest Respiratory/Chest: Denies cough, dyspnea, dyspnea on exertion, orthopnea or paroxysmal nocturnal dyspnea Gastrointestinal Gastrointestinal: Reports abdominal pain and nausea; Denies constipation, diarrhea, melena or vomiting Genitourinary Genitourinary ED: Denies dysuria, hematuria or urinary frequency Musculoskeletal Musculoskeletal: Denies arthralgias, back pain or myalgias Integumentary Denies abscess, Abrasions or rash Psychiatric Psychiatric: Denies anxiety or depression Endocrine Endocrinology: Reports cold intolerance and heat intolerance Hematologic/Lymphatic Hematologic/Lymphatic: Denies e (more content not included)... Normal [facility] L501.4020on 08-25-2024 TROPONIN-I HS < 3 Low 3.0-54.0 [facility] Comment on above: Result Comment: Plea se Note: New Test Units and Gender Specific Reference Ranges. For more information see Policy Stat Procedure [place] High Sensitivity Troponin (TNIH) and attachments. Performed By: #### L 501.4020 ####[facility] [id number] [place], [address] L501.5425on 08-25-2024 TROPONIN-I HS 7 pg/mL Normal 3.0-54.0 [facility] Comment on above: Order Comment: 1Y Result Comment: Plea se Note: New Test Units and Gender Specific Reference Ranges. For more information see Policy Stat Procedure [place] High Sensitivity Troponin (TNIH) and attachments. Performed By: #### L 100.0100, L501.5425, L500.2500 ####[facility] [id number] [place], [address] [facility] URVASHI Telephone (INTMWS) -------- SAULO GEIGER I ([id number]) 1960 F NFR Date Time Provider Department 08/15/24 CECILIA SPARKS INTJacquelineWS During your visit today, we recorded the following information about you: Charu Lopez LPN 08/15/2024 7:34 AM Signed Patient has CT scan completed at [facility] 08/14/24. Report give to nurse for Cecilia Sparks. Cecilia Sparks APRN.[facility] 08/15/2024 7:55 AM Signed Please let the patient know the CT scan of her abdomen was negative. No indications for cause of symptoms. I ordered another test to evaluate the nausea and vomiting called a gastric emptying study. This looks to see how long it takes for food to pass through the stomach and into the small intestine.She should also schedule with GI as soon as possible as discussed yesterday. Cecilia Sparks APRN.Alisson Bonilla LPN 08/15/2024 2:49 PM Signed Please help schedule gastric emptying study Patient notified of results and recommendations for another test. Patient stated that she is right now in the GI doctors office now SHA Castillo Michelle 08/18/2024 10:25 AM Signed 1st attempt LVM to schedule NM Gastric Emptying Study Luzma Espinoza MA 08/22/2024 10:37 AM Signed Patient called back and scheduled Luzma Espinoza MA Allergies As of Date: 08/15/2024 Noted Allergy Reaction BEE VENOM PROTEIN (HONEY BEE) 07/30/2023 16 - Unknown MORPHINE 04/03/2017 11 - Vomiting RELAFEN (NABUMETONE) 11/26/2008 6 - Diarrhea Comments: 2005 tried med VENOM-HONEY BEE 01/28/2023 16 - Unknown ZOLPIDEM 01/28/2023 14 - Other: See Comments Date Reviewed: 08/14/2024 Reviewed by: Cecilia Sparks APRN.[employer] - Fully Assessed Reason for Visit: Results [95] Primary Visit Diagnosis:Nausea [R11.0] Other Visit Diagnosis:Nausea and vomiting, unspecified vomiting type [R11.2] Order(s):MN GASTRIC EMPTYING SOLID [5884724] Order #: [id number] FUTURE Prescriptions as of 08/22/2024 - ALPRAZolam (XANAX) 0.5 mg tablet Take 0.5 mg by mouth at bedtime as needed. - naratriptan (AMERGE) 2.5 mg tablet Take 1 tablet (2.5 mg) by mouth as needed. 2.5 mg at onset of headache, may repeat in 4 hours if needed - promethazine (PHENERGAN) 25 mg tablet Take 0.5-1 tablets by mouth every 6 hours as needed. - diclofenac, EC, (VOLTAREN) 50 mg EC tablet Take 1 tablet by mouth two times a day as needed. - fluticasone (FLONASE) 50 mcg/actuation nasal spray Use 2 Sprays in each nostril once daily. Rinse mouth after use. - cholecalciferol (VITAMIN D3) 1,000 unit tab tablet Take 1 tablet by mouth once daily. - loperamide (ANTI-DIARRHEAL) 2 mg cap(s) Take 1 capsule by mouth four times a day as needed for diarrhea. - dilTIAZem CD (CARTIA XT) 180 mg 24 hr capsule Take 1 capsule by mouth once daily. - topiramate (TOPAMAX) 100 mg tablet TAKE 2 TABLETS TWICE A DAY IN THE MORNING AND AT BEDTIME - pantoprazole DR (PROTONIX) 40 mg tablet Take 1 tablet by mouth two times a day before meals at 6 am and 4 pm. Take on empty stomach, 1/2 hr before meal. - cyclobenzaprine (FLEXERIL) 10 mg tablet Take 1 tablet by mouth at bedtime as needed for muscle spasm or pain. - ibuprofen (MOTRIN) 800 mg tablet Take 1 tablet by mouth every 8 hours as needed for pain. Take with food. Problem List As Of Date 08/15/2024 Noted Resolved Concussion with no loss of consciousness [S06.0* 07/09/2019 Sprain of neck [S13.9XXA] 07/09/2019 Sprain of thoracic region [S23.9XXA] 07/09/2019 Migraine variant [G43.809] Disturbance of skin sensation [R20.9] 07/09/2019 ESOPHAGEAL REFLUX [K21.9] Displacement of intervertebral disc of thoracol*11/30/2006 Bee sting allergy [T63.91XA] 04/28/2008 Sprain of lumbosacral (joint) (ligament) [S33.9*09/29/2008 07/09/2019 Painful respiration [R07.1] 10/19/2008 08/21/2013 Bruxism (teeth grinding) [F45.8] 08/16/2011 Lumbago [M54.50] 07/03/2012 07/09/2019 Cervicalgia [M54.2] 08/02/2012 DDD (degenerative disc disease), lumbar [M51.36*08/02/2012 07/09/2019 Lumbar spondylosis [M47.816] 08/02/2012 07/09/2019 Chronic back pain [M54.9, G89.29] 08/02/2012 Hypercholesteremia [E78.00] Bright red rectal bleeding [K62.5] 07/29/2015 07/29/2015 Nausea [R11.0] 07/29/2015 07/29/2015 Non-cardiac chest pain [R07.89] 04/03/2017 07/09/2019 Displacement of cervical intervertebral disc wi*05/06/2018 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 Status: Signed Intake Vital Signs 07/13/23 10:39 Height 5 ft 6 in Intake Visit Reasons: Abdominal pain Chief Complaint: f/u Allergies nabumetone (From Relafen) Allergy (Intermediate, Verified 05/23/24 12:11) Other venom-honey bee (bee venom (honey bee)) Allergy (Verified 05/23/24 12:11) Unknown morphine Adverse Reaction (Verified 05/23/24 12:11) Nausea zolpidem (From Ambien) Adverse Reaction (Verified 05/23/24 12:11) Other Medications ???Medication ???Instructions ???Recorded ???Confirmed ???Type diltiazem HCl 180 mg 180 mg PO DAILY headaches 05/15/14 05/23/24 History capsule,extended release 24 hr topiramate 200 mg tablet 400 mg PO BID 05/15/14 05/23/24 History naratriptan 2.5 mg tablet mg PO 07/13/23 05/23/24 History pantoprazole 40 mg tablet,delayed mg PO 07/13/23 05/23/24 History release promethazine 25 mg tablet mg PO 07/13/23 08/15/23 History topiramate 100 mg tablet mg PO 07/13/23 05/23/24 History cyclobenzaprine 10 mg tablet 10 mg PO HS 05/23/24 05/23/24 History loperamide 2 mg capsule 2 mg PO Q4H PRN 05/23/24 05/23/24 History dicyclomine 10 mg capsule 10 mg PO BID PRN abdominal pain 08/15/24 08/15/24 Rx #30 caps scopolamine base 1 mg over 3 days 1 patch transdermal Q3D PRN nausea 08/15/24 08/15/24 Rx transdermal patch #4 ea Have you fallen in the past year?: No Nurse's Note: OV 08.15.24 Pt here for f/u. Pt reports diarrhea several times a week, N/V, and abdominal pain. States she feels like she has something growing in her abdomen. Denies bloody stools, and constipation. Takes pantoprazole daily. PFSH Medical History (Updated 05/28/24 @ 12:44 by MARK Reynoso) Hypercholesteremia Esophageal reflux Disc displacement LLQ pain Dysphagia Surgical History (Updated 05/23/24 @ 12:14 by Angelic Islas) History of cholecystectomy H/O tubal ligation H/O colonoscopy Family History (Updated 05/23/24 @ 12:14 by Angelic Islas) Mother Heart disease CVA (cerebral vascular accident) Father Cancer Sister Diabetes Social History (Updated 05/23/24 @ 12:15 by Angelic Islas) Smoking Status: Former smoker quit date: 07/21/15 alcohol intake: current alcohol intake frequency: holidays/special occasions only substance use type: does not use HPI HPI Chief Complaint: f/u Details: SAULO GEIGER, is a 64 F who presents to the office today for f/u [facility] established .24 w/ dysphagia, abdominal pain, nausea and feelings of fullness in her neck. Most recent scopes were in April [address] neck .24;No space-occupying mass is identified. OV 12..24 Pt continues to have issues with swallowing, nausea and abdominal pain. Nothing has been helpful for these symptoms. Her main concern today is the diffuse lower abdominal pain and the nausea. Every time she eats she if feeling nauseous but does not vomit daily. She feels like she has a tennis ball size mass in her abdomen that she feels moving. has Her PCP ordered CT abd/pelvis whim was without abnormality. CT abd/pelvis .24: No acute findings in the abdomen or pelvis. ROS Const Constitutional: Positive for headache(s); No fatigue, fever(s) or weight change ENT ENT: Positive for headache(s); No difficulty swallowing Gastro GI: Positive for abdominal pain, diarrhea, nausea/dyspepsia and vomiting; No belching, bloating, change in bowel habits, change in stool character, coffee ground emesis, constipation, cramping, heartburn, difficulty swallowing, feeling full early, excessive flatus, incontinent of stools, Vomiting blood/hematemesis, Blood in stool, loose stools, Black,tarry stools, pain with swallowing or other Musc Musculoskeletal: No joint pain Skin Skin: No yellowing of the eye or itchy eyes Neuro Neurology: Positive for headache(s) Psych Psychiatric: Positive for anxiety and No depression Endo Endocrine: No fatigue or weight change Aller/Imm Allergy/Immunologic: No itchy eyes Josué/Lymp Hematologic/Lymphatic: Positive for easy bruising; No easy bleeding Exam Const General: cooperative and comfortable Nutritional Appearance: average body habitus and well nourished HENPA Head: normal to inspection Ears: hearing grossly normal bilaterally Nose: external nose normal Face and sinus: normal facial exam Eyes General: appearance normal, both eyes and all related structures Neck Neck: normal visual inspection Chest Chest palpation inspection: normal inspection of the chest (more content not included)... Normal [facility] Abdomen/Pelvis WITH Contrast on 08-14-2024 Abdomen/Pelvis WITH Contrast [facility] Imaging Services [address] [place], [place] [address] Abdomen/Pelvis WITH Contrast MR#: [id number] Acct: [id number] Name: SAULO GEIGER I Rep #: [id number] : 1960 F 64 From: Wil Hines MD PCP: Dr. Akin Elliott MD Status: REG CL Study: Abdomen/Pelvis WITH Contrast Date of Exam: 01/31 Exam# [id number] Ordering Dr: Cecilia Sparks [employer] N P-C [id number] EXAM: CT ABDOMEN AND PELVIS WITH INTRAVENOUS CONTRAST CLINICAL INDICATION: LLQ PAIN/NAUSEA TECHNIQUE: Helically acquired images were obtained of the abdomen and pelvis with intravenous contrast. This CT exam was performed using one or more of the following dose reduction techniques: automated exposure control, adjustment of the mA and/or kV according to patient size, and/or use of iterative reconstruction technique. CONTRAST: IV 75mL [id number]-370 COMPARISON: 05/25/2023 FINDINGS: LOWER THORAX: Unremarkable. Lung bases are clear. No cardiomegaly. No significant pericardial effusion. ABDOMEN: LIVER: Unremarkable. Homogeneous. No focal mass. GALLBLADDER AND BILE DUCTS: Unremarkable. No calcified gallstones. No gallbladder distention or wall edema. No intra- or extrahepatic biliary ductal dilation. PANCREAS: Unremarkable. No focal cystic or solid mass. SPLEEN: Unremarkable. Normal size without focal cystic or solid mass. ADRENALS: Unremarkable. No nodules. KIDNEYS AND URETERS: Unremarkable. Normal renal size and position. No hydronephrosis. STOMACH AND BOWEL: There is sigmoid diverticulosis with no evidence of diverticulitis. No stomach or bowel distention. PELVIS: APPENDIX: No evidence of acute appendicitis. BLADDER: Unremarkable. REPRODUCTIVE: Unremarkable as visualized. No mass. ABDOMEN and PELVIS: INTRAPERITONEAL SPACE: Unremarkable. No ascites or other fluid collection. No free air. BONES/JOINTS: Unremarkable. No suspicious lytic or blastic abnormality. SOFT TISSUES: Unremarkable. No discrete abdominal or pelvic wall hernia. VASCULATURE: Unremarkable. Abdominal aorta is non-dilated. LYMPH NODES: Unremarkable. No enlarged lymph nodes. CT/Abdomen/Pelvis WITH Contrast IMPRESSION: No acute findings in the abdomen or pelvis. Electronically Signed: Wil Hines MD at 18:49 EST , CC: MARK Ontiveros; Dr. Akin Elliott MD Soft Crab Shedder: Signed [facility] 08-14-2024 [facility] Office Visit (INTMWS ) -------- AUSTINSAULO Harvinder ([id number]) 1960 F NFR Date Time Provider Department 08/14/24 12:20 PM CECILIA SPARKS INTMWS During your visit today, we recorded the following information about you: Pulse Respiration Blood pressure Weight 83/minute 14/minute 128/62 62.6 kg Height 1.626 m Cecilia Sparks, ENGINE MANAGER.[employer] TECHNICIAN 08/14/2024 1:04 PM Signed CC: Patient presents with: Follow Up: still not feeling well, nausea,stomach ache left side, wants letter stating she is not contagious HPI Saulo Geiger is a 64 year old female who presents today for above. She was seen on 08/04 for one month history of cough, SOB, upper respiratory symptoms, nausea, and vomiting. She had been treated with Augmentin, Doxycycline and Bactrim without much if any improvement. She had normal chest x-ray on 08/01. EKG showed normal sinus rhythm. Patient insisted on treatment with further antibiotics and was prescribed a Z pack. CBC was normal however CMP revealed moderately elevated liver enzymes. Stat abdominal ultrasound showed slight increase in echogenicity of the liver but was otherwise normal. She also had pelvic ultrasound ordered by gynecology for unrelated symptoms that was normal. Hepatitis panel negative except Hep B surface antibody was positive. Iron studies, amylase and lipase were normal as well. Today she reports respiratory symptoms have resolved but nausea and vomiting have not. She also reports lower abdominal pain that is worsening. She is unclear how long ago the pain started. She had a CT abdomen and pelvis in April 2024 for LLQ abdominal pain but she doesn't remember this. She also had evaluation with EGD and barium swallow in May for evaluation of dysphagia. Tests indicated reactive gastropathy of antral mucosa and dysmotility with delay between oral cavity and oropharynx; H.pylori was negative. She was referred to GI and orders faxed to Dr. Rucker but she never heard from his office to schedule. She has a history of GERD but denies heartburn or reflux. She takes Protonix 40 mg BID as ordered. Review of Systems Constitutional: Positive for chills and fatigue. Negative for diaphoresis, fever and unexpected weight change. HENT: Positive for trouble swallowing. Negative for congestion, ear pain, sinus pressure, sinus pain and sore throat. Respiratory: Positive for shortness of breath. Negative for cough and wheezing. Cardiovascular: Negative for chest pain, palpitations and leg swelling. Gastrointestinal: Positive for diarrhea (chronic, intermittent). Negative for abdominal distention, blood in stool and constipation (Last BM two days ago, normal for patient). Genitourinary: Negative for decreased urine volume, difficulty urinating, frequency and urgency. Neurological: Negative for dizziness, syncope, weakness and light-headedness. PAST MEDICAL HISTORY Diagnosis Date Bee sting allergy 04/28/2008 Concussion with no loss of consciousness Displacement of intervertebral disc, site unspecified, without myelopathy 11/30/2006 [facility] claim Disturbance of skin sensation Esophageal reflux Headaches migraines Hypercholesteremia Mental disorder anxiety Multiple rib fractures 2012 Fell down stairs to basement-- 5th and 6th rib fractures and left great toe fracture Snoring Sprain of lumbosacral (joint) (ligament) Sprain of neck [facility] claim Sprain of thoracic region [facility] claim Tubular adenoma of colon 07/29/2015 Dr. Caban Variants of migraine, not elsewhere classified, without mention of intractable migraine without mention of status migrainosus PAST SURGICAL HISTORY Procedure Laterality Date CHOLECYSTECTOMY 02/26/2017 Cholecystectomy; [facility] with Dr. Alejo COLONOSCOPY FLX DX W/COLLJ SPEC WHEN PFRMD 07/29/2015 Colonoscopy COLONOSCOPY SCREENING 2018 COLONOSCOPY SCREENING 06/28/2023 repeat in 10 years, Dr. Alejo EGD 05/08/2024 ESOPHAGOGASTRODUODENOSCO PY TRANSORAL DIAGNOSTIC 07/29/2015 EGD ESOPHAGOGASTRODUODENOSCO PY TRANSORAL DIAGNOSTIC 04/05/2017 EGD PAST SURGICAL HISTORY OF bilat feet - reconstruction ALLERGIES Bee Venom Protein (Honey Bee), Morphine, Relafen [Nabumetone], Venom-Honey Bee, and Zolpidem MEDICATIONS ALPRAZolam (XANAX) 0.5 mg tablet Take 0.5 mg by mouth at bedtime as needed. naratriptan (AMERGE) 2.5 mg tablet Take 1 tablet (2.5 mg) by mouth as needed. 2.5 mg at onset of headache, may repeat in 4 hours if needed promethazine (PHENERGAN) 25 mg tablet Take 0.5-1 tablets by mouth every 6 hours as needed. diclofenac, EC, (VOLTAREN) 50 mg EC tablet Take 1 tablet by mouth two times a day as needed. fluticasone (FLONASE) 50 mcg/actuation nasal spray Use 2 Sprays in each nostril once daily. Rinse mouth after use. cholecalciferol (VITAMIN D3) 1,000 unit tab tablet Take 1 tablet by mouth once daily. loperamide (ANTI-DIARRHEAL) 2 (more content not included)... Normal [facility] CREATININE FINGERSTICKon Creatinine [Mass/Vol] 1.1 mg/dL High 0.55-1.02 [facility] Comment on above: Performed By: #### L 9100.0200 ####[facility] [id number] [place], [address] GFR/1.73 sq M.predicted among non-blacks MDRD (S/P/Bld) [Vol rate/Area] 55.0000 mL/min/{1.73_m2} Low >60 [facility] Comment on above: Performed By: #### L 9100.0200 ####[facility] [address] [place], [address] Comprehensive metabolic 2000 panelon 08-13-2024 Albumin [Mass/Vol] 4.7 g/dL Normal 3.9-4.9 [facility] Comment on above: Order Comment: Speci men Type: BLOOD SPECIMENOrdering Facility: [facility] Address: [address] [place] [address] Performed By: #### 2 4323-8 ####[facility] LABCLIA [id number] [place] [address] [place] ALP [Catalytic activity/Vol] 127 U/L High 34-123 [facility] Comment on above: Order Comment: Speci men Type: BLOOD SPECIMENOrdering Facility: [facility] Address: [address] [place] [address] Performed By: #### 2 4323-8 ####[facility] LABCLIA [id number] [place] [address] [place] ALT [Catalytic activity/Vol] 31 U/L Normal 7-38 [facility] Comment on above: Order Comment: Speci men Type: BLOOD SPECIMENOrdering Facility: [facility] Address: [address] [place] [address] Performed By: #### 2 4323-8 ####[facility] LABCLIA [id number] [place] [address] [place] Anion gap [Moles/Vol] 15 mmol/L Normal 8-15 [facility] Comment on above: Order Comment: Speci men Type: BLOOD SPECIMENOrdering Facility: [facility] Address: [address] [place] [address] Performed By: #### 2 4323-8 ####[facility] LABCLIA [id number] [place] [id number] [place] AST [Catalytic activity/Vol] 17 U/L Normal 13-35 [facility] Comment on above: Order Comment: Speci men Type: BLOOD SPECIMENOrdering Facility: [facility] Address: [address] [place] [address] Performed By: #### 2 4323-8 ####[facility] LABCLIA [id number] [place] [address] [place] Bilirubin [Mass/Vol] 0.3 mg/dL Normal 0.2-1.3 [facility] Comment on above: Order Comment: Speci men Type: BLOOD SPECIMENOrdering Facility: [facility] Address: [address] [place] [address] Performed By: #### 2 4323-8 ####[facility] LABCLIA [id number] [place] [address] [place] Calcium [Mass/Vol] 9.5 mg/dL Normal 8.5-10.2 [facility] Comment on above: Order Comment: Speci men Type: BLOOD SPECIMENOrdering Facility: [facility] Address: [address] [place] [address] Performed By: #### 2 4323-8 ####[facility] LABCLIA [id number] [place] [address] [place] Chloride [Moles/Vol] 108 mmol/L High 98-107 [facility] Comment on above: Order Comment: Speci men Type: BLOOD SPECIMENOrdering Facility: [facility] Address: [address] [place] [address] Performed By: #### 2 4323-8 ####[facility] LABCLIA [id number] [place] [address] [place] CO2 [Moles/Vol] 17 mmol/L Low 22-30 [facility] Comment on above: Order Comment: Speci men Type: BLOOD SPECIMENOrdering Facility: [facility] Address: [address] [place] [address] Performed By: #### 2 4323-8 ####[facility] LABCLIA [id number] [place] [address] [place] Creatinine [Mass/Vol] 1.14 mg/dL High 0.58-0.96 [facility] Comment on above: Order Comment: Speci men Type: BLOOD SPECIMENOrdering Facility: [facility] Address: [address] [place] [address] Performed By: #### 2 4323-8 ####[facility] LABIA [id number] [place] [address] [place] Creatinine and Glomerular filtration rate.predicted panel (S/P/Bld) 55 mL/min/1.73m??? Low >=60 [facility] Comment on above: Order Comment: Speci men Type: BLOOD SPECIMENOrdering Facility: [facility] Address: [address] [place] [address] Result Comment: Alina mated Glomerular Filtration Rate (eGFR) is calculated using the 2020 CKD-EPI creatinine equation. This equation utilizes serum creatinine, sex, and age as parameters. The creatinine assay has traceable calibration to isotope dilution-mass spectrometry. Refer to KDIGO guidelines for clinical interpretation. In patients with unstable renal function, e.g. those with acute kidney injury, the eGFR may not accurately reflect actual GFR. Performed By: #### 2 4323-8 ####[facility] LABCLIA [id number] [place] [address] [place] Glucose [Mass/Vol] 94 mg/dL Normal 74-99 [facility] Comment on above: Order Comment: Speci men Type: BLOOD SPECIMENOrdering Facility: [facility] Address: [address] [place] [id number] Result Comment: The [place] Diabetes Association (ADA) provides guidance for cutoff values for fasting glucose and random glucose. The ADA defines fasting as no caloric intake for at least 8 hours. Fasting plasma glucose results between 100 to 125 [...] Standards of Medical Care in Diabetes 2016, [place] [employer] Association. Diabetes Care. 2016.39(Suppl 1). Performed By: #### 2 4323-8 ####[facility] LABCLIA [id number] [place] [address] [place] Potassium [Moles/Vol] 4.1 mmol/L Normal 3.7-5.1 [facility] Comment on above: Order Comment: Speci men Type: BLOOD SPECIMENOrdering Facility: [facility] Address: [address] [place], [place] [address] Performed By: #### 2 4323-8 ####[facility] LABCLIA [id number] [place] [address] [place] Protein [Mass/Vol] 7.1 g/dL Normal 6.3-8.0 [facility] Comment on above: Order Comment: Speci men Type: BLOOD SPECIMENOrdering Facility: [facility] Address: [address] [place] [address] Performed By: #### 2 4323-8 ####[facility] LABCLIA [id number] [place] [address] [place] Sodium [Moles/Vol] 140 mmol/L Normal 136-144 [facility] Comment on above: Order Comment: Speci men Type: BLOOD SPECIMENOrdering Facility: [facility] Address: [address] [place] [id number] Performed By: #### 2 4323-8 ####[facility] LABCLIA [id number] [place] [id number] [place] Urea nitrogen [Mass/Vol] 24 mg/dL High 7-21 [facility] Comment on above: Order Comment: Speci men Type: BLOOD SPECIMENOrdering Facility: [facility] Address: [address] [place] [id number] Performed By: #### 2 4323-8 ####[facility] LABCLIA [id number] [address] [facility] Wilbert 08-06-2024 CNPN Telephone (INTMWS) -------- SAULO GEIGER I ([id number]) 1960 F NFR Date Time Provider Department 08/06/24 CECILIA SPARKS INTJacquelineWS During your visit today, we recorded the following information about you: Chyna Sotelo RN 08/06/2024 10:37 AM Signed Patient calls to ask if provider has got a chance to review US and lab results from yesterday. Notified patient labs are still pending and provider might be waiting for those results prior to advising. Patient verbalizes understanding and asking for a call back at [phone] once reviewed. BERNARDO Moore Naz M, ABBY.[employer] TECHNICIAN 08/06/2024 2:14 PM Signed I sent patient a My chart message regarding her test results Cecilia Sparks APRN.Martinez Rodgers MA 08/06/2024 3:00 PM Signed TC to pt. She does not use mychart. Notified and verbalized understanding of results. Will have labs rechecked in 1 week. Allergies As of Date: 08/06/2024 Noted Allergy Reaction BEE VENOM PROTEIN (HONEY BEE) 07/30/2023 16 - Unknown MORPHINE 04/03/2017 11 - Vomiting RELAFEN (NABUMETONE) 11/26/2008 6 - Diarrhea Comments: 2005 tried med VENOM-HONEY BEE 01/28/2023 16 - Unknown ZOLPIDEM 01/28/2023 14 - Other: See Comments Date Reviewed: 08/04/2024 Reviewed by: Cecilia Sparks APRN.[employer] TECHNICIAN - Fully Assessed Reason for Visit: Results [95] Prescriptions as of 08/06/2024 - azithromycin (ZITHROMAX Z-LUAN) 250 mg tablet Take 2 tablets day one, then, 1 tablet daily until gone. - ALPRAZolam (XANAX) 0.5 mg tablet Take 0.5 mg by mouth at bedtime as needed. - naratriptan (AMERGE) 2.5 mg tablet Take 1 tablet (2.5 mg) by mouth as needed. 2.5 mg at onset of headache, may repeat in 4 hours if needed - promethazine (PHENERGAN) 25 mg tablet Take 0.5-1 tablets by mouth every 6 hours as needed. - diclofenac, EC, (VOLTAREN) 50 mg EC tablet Take 1 tablet by mouth two times a day as needed. - fluticasone (FLONASE) 50 mcg/actuation nasal spray Use 2 Sprays in each nostril once daily. Rinse mouth after use. - cholecalciferol (VITAMIN D3) 1,000 unit tab tablet Take 1 tablet by mouth once daily. - loperamide (ANTI-DIARRHEAL) 2 mg cap(s) Take 1 capsule by mouth four times a day as needed for diarrhea. - dilTIAZem CD (CARTIA XT) 180 mg 24 hr capsule Take 1 capsule by mouth once daily. - topiramate (TOPAMAX) 100 mg tablet TAKE 2 TABLETS TWICE A DAY IN THE MORNING AND AT BEDTIME - pantoprazole DR (PROTONIX) 40 mg tablet Take 1 tablet by mouth two times a day before meals at 6 am and 4 pm. Take on empty stomach, 1/2 hr before meal. - cyclobenzaprine (FLEXERIL) 10 mg tablet Take 1 tablet by mouth at bedtime as needed for muscle spasm or pain. - ibuprofen (MOTRIN) 800 mg tablet Take 1 tablet by mouth every 8 hours as needed for pain. Take with food. Problem List As Of Date 08/06/2024 Noted Resolved Concussion with no loss of consciousness [S06.0* 07/09/2019 Sprain of neck [S13.9XXA] 07/09/2019 Sprain of thoracic region [S23.9XXA] 07/09/2019 Migraine variant [G43.809] Disturbance of skin sensation [R20.9] 07/09/2019 ESOPHAGEAL REFLUX [K21.9] Displacement of intervertebral disc of thoracol*11/30/2006 Bee sting allergy [T63.91XA] 04/28/2008 Sprain of lumbosacral (joint) (ligament) [S33.9*09/29/2008 07/09/2019 Painful respiration [R07.1] 10/19/2008 08/21/2013 Bruxism (teeth grinding) [F45.8] 08/16/2011 Lumbago [M54.50] 07/03/2012 07/09/2019 Cervicalgia [M54.2] 08/02/2012 DDD (degenerative disc disease), lumbar [M51.36*08/02/2012 07/09/2019 Lumbar spondylosis [M47.816] 08/02/2012 07/09/2019 Chronic back pain [M54.9, G89.29] 08/02/2012 Hypercholesteremia [E78.00] Bright red rectal bleeding [K62.5] 07/29/2015 07/29/2015 Nausea [R11.0] 07/29/2015 07/29/2015 Non-cardiac chest pain [R07.89] 04/03/2017 07/09/2019 Displacement of cervical intervertebral disc wi*05/06/2018 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 The cyst are less than 1 cm in size and most likely not the cause of her pain on that left side. No further follow-up is needed. Ev Finn APRN.Isabell Briggs RN 08/06/2024 2:31 PM Signed Patient notified. Isabell Desir RN Allergies As of Date: 08/06/2024 Noted Allergy Reaction BEE VENOM PROTEIN (HONEY BEE) 07/30/2023 16 - Unknown MORPHINE 04/03/2017 11 - Vomiting RELAFEN (NABUMETONE) 11/26/2008 6 - Diarrhea Comments: 2005 tried med VENOM-HONEY BEE 01/28/2023 16 - Unknown ZOLPIDEM 01/28/2023 14 - Other: See Comments Date Reviewed: 08/04/2024 Reviewed by: Cecilia Sparks APRN.CNP - Fully Assessed Reason for Visit: Results [95] Prescriptions as of 08/06/2024 - azithromycin (ZITHROMAX Z-LUAN) 250 mg tablet Take 2 tablets day one, then, 1 tablet daily until gone. - ALPRAZolam (XANAX) 0.5 mg tablet Take 0.5 mg by mouth at bedtime as needed. - naratriptan (AMERGE) 2.5 mg tablet Take 1 tablet (2.5 mg) by mouth as needed. 2.5 mg at onset of headache, may repeat in 4 hours if needed - promethazine (PHENERGAN) 25 mg tablet Take 0.5-1 tablets by mouth every 6 hours as needed. - diclofenac, EC, (VOLTAREN) 50 mg EC tablet Take 1 tablet by mouth two times a day as needed. - fluticasone (FLONASE) 50 mcg/actuation nasal spray Use 2 Sprays in each nostril once daily. Rinse mouth after use. - cholecalciferol (VITAMIN D3) 1,000 unit tab tablet Take 1 tablet by mouth once daily. - loperamide (ANTI-DIARRHEAL) 2 mg cap(s) Take 1 capsule by mouth four times a day as needed for diarrhea. - dilTIAZem CD (CARTIA XT) 180 mg 24 hr capsule Take 1 capsule by mouth once daily. - topiramate (TOPAMAX) 100 mg tablet TAKE 2 TABLETS TWICE A DAY IN THE MORNING AND AT BEDTIME - pantoprazole DR (PROTONIX) 40 mg tablet Take 1 tablet by mouth two times a day before meals at 6 am and 4 pm. Take on empty stomach, 1/2 hr before meal. - cyclobenzaprine (FLEXERIL) 10 mg tablet Take 1 tablet by mouth at bedtime as needed for muscle spasm or pain. - ibuprofen (MOTRIN) 800 mg tablet Take 1 tablet by mouth every 8 hours as needed for pain. Take with food. Problem List As Of Date 08/06/2024 Noted Resolved Concussion with no loss of consciousness [S06.0* 07/09/2019 Sprain of neck [S13.9XXA] 07/09/2019 Sprain of thoracic region [S23.9XXA] 07/09/2019 Migraine variant [G43.809] Disturbance of skin sensation [R20.9] 07/09/2019 ESOPHAGEAL REFLUX [K21.9] Displacement of intervertebral disc of thoracol*11/30/2006 Bee sting allergy [T63.91XA] 04/28/2008 Sprain of lumbosacral (joint) (ligament) [S33.9*09/29/2008 07/09/2019 Painful respiration [R07.1] 10/19/2008 08/21/2013 Bruxism (teeth grinding) [F45.8] 08/16/2011 Lumbago [M54.50] 07/03/2012 07/09/2019 Cervicalgia [M54.2] 08/02/2012 DDD (degenerative disc disease), lumbar [M51.36*08/02/2012 07/09/2019 Lumbar spondylosis [M47.816] 08/02/2012 07/09/2019 Chronic back pain [M54.9, G89.29] 08/02/2012 Hypercholesteremia [E78.00] Bright red rectal bleeding [K62.5] 07/29/2015 07/29/2015 Nausea [R11.0] 07/29/2015 07/29/2015 Non-cardiac chest pain [R07.89] 04/03/2017 07/09/2019 Displacement of cervical intervertebral disc wi*05/06/2018 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 Endometrium is avascular, heterogeneous and measures 1.5 mm. Both ovaries are visualized and appear normal. Right adnexa contains two benign-appearing cysts. 1. Size 7 mm x 7 mm x 7 mm. Simple paraovarian/paratubal cyst 2. Size 7 mm x 8 mm x 6 mm. Simple paraovarian/paratubal cyst Left adnexa contains two benign-appearing cysts. 1. Size 10 mm x 10 mm x 9 mm. Simple paraovarian/paratubal cyst 2. Size 11 mm x 11 mm x 9 mm. Simple paraovarian/paratubal cyst There is no free fluid visualized in the peritoneal cavity. Recommendations O-RADS 2 simple cysts, almost certainly benign. No follow up imaging is needed. History [employer] History Postmenopausal: Postmenopausal Method Transabdominal, transvaginal, 3D ultrasound examination, Color Doppler examination. View: Adequate visualization Uterus Uterus: Visualized Uterus position: anteflexed Description of uterine malformations: none Myometrium: heterogeneous Endometrium: intracavitary fluid: 'low level' echogenicity Cervix details: normal Uterus length 54 mm Uterus width 34 mm Uterus height 18 mm Uterus Vol 17.4 cm Endometrial thickness single layer 0.7 mm Endom. th. single layer 0.8 mm Side: anterior Side: posterior Endometrial thickness, total 1.5 mm Fibroids: No fibroids identified Right Ovary Rt ovary: Visualized Rt ovary morphology: postmenopausal atrophic Rt ovary D1 16 mm Rt ovary D2 10 mm Rt ovary D3 11 mm Rt ovary Vol 0.9 cm Rt ovarian cyst(s): Cysts identified Rt ovarian cyst D1 7 mm Rt ovarian cyst D2 7 mm Rt ovarian cyst D3 7 mm Rt ovarian cyst mean 7.0 mm Rt ovarian cyst vol 0.180 cm Rt ovarian cyst findings: Simple paraovarian/paratubal cyst Rt ovarian cyst D1 7 mm Rt ovarian cyst D2 8 mm Rt ovarian cyst D3 6 mm Rt ovarian cyst mean 7.0 mm Rt ovarian cyst vol 0.176 cm Rt ovarian cyst findings: Simple paraovarian/paratubal cyst Left Ovary Lt ovary: Visualized Lt ovary morphology: postmenopausal atrophic Lt ovary D1 14 mm Lt ovary D2 10 mm Lt ovary D3 8 mm Lt ovary Vol 0.6 cm Lt ovarian cyst(s): Cysts identified Lt ovarian cyst D1 10 mm Lt ovarian cyst D2 10 mm Lt ovarian cyst D3 9 mm Lt ovarian cyst mean 9.7 mm Lt ovarian cyst vol 0.471 cm Lt ovarian cyst findings: Simple paraovarian/paratubal cyst Lt ovarian cyst D1 11 mm Lt ovarian cyst D2 11 mm Lt ovarian cyst D3 9 mm Lt ovarian cyst mean 10.3 mm Lt ovarian cyst vol 0.570 cm Lt ovarian cyst findings: Simple paraovarian/paratubal cyst Cul de Sac Visualized. no free fluid visualized Performed By: Geovanna Weathers RDMS Read By: Ct Bailon M.D. MATERNAL MEDICINE [facility] Amylase SerPl-[facility] 024 Amylase [Catalytic activity/Vol] 96 U/L Normal 30-104 [facility] Comment on above: Order Comment: Speci men Type: BLOOD SPECIMENOrdering Facility: [facility] Address: [address] [place] [address] Performed By: #### 5 0190-8, 1798-8, 3040-3, 2276-4 ####[facility] LABCLIA [id number] [place] [address] [place] Wilbert 08-05-2024 BONYN Telephone (INTMWS) -------- SAULO GEIGER I ([id number]) 1960 F NFR Date Time Provider Department 08/05/24 CECILIA SPARKS INTMWS During your visit today, we recorded the following information about you: Cecilia Sparks APRN.CNP 08/05/2024 7:54 AM Signed Please let the patient know her labs looked good except her liver enzymes were moderately elevated which is a new finding. The clinical significance of this is not known. Needs further evaluation with additional labs and ultrasound of the liver. MAGDALENE Blair Toni, MA 08/05/2024 9:52 AM Signed Pt notified, verbalized understanding. Pt going for pelvic us today - will schedule additional US while there and have labs done. Allergies As of Date: 08/05/2024 Noted Allergy Reaction BEE VENOM PROTEIN (HONEY BEE) 07/30/2023 16 - Unknown MORPHINE 04/03/2017 11 - Vomiting RELAFEN (NABUMETONE) 11/26/2008 6 - Diarrhea Comments: 2005 tried med VENOM-HONEY BEE 01/28/2023 16 - Unknown ZOLPIDEM 01/28/2023 14 - Other: See Comments Date Reviewed: 08/04/2024 Reviewed by: Cecilia Sparks APRN.[employer] TECHNICIAN - Fully Assessed Primary Visit Diagnosis:Elevated LFTs [R79.89] Other Visit Diagnosis:Nausea and vomiting, unspecified vomiting type [R11.2] Order(s):US ABD RIGHT UPPER QUADRANT [[id number]] Order #: [id number] FUTURE HEP ACUTE PANEL BL [SQHACUTP] Order #: [id number] FUTURE HEP REMOTE PANEL BL [SQHREMOP] Order #: [id number] FUTURE IRON AND TIBC [SQIRON] Order #: [id number] FUTURE FERRITIN [SQFERR] Order #: [id number] FUTURE AMYLASE [SQAMYL] Order #: [id number] FUTURE LIPASE [SQLIPA] Order #: [id number] FUTURE Prescriptions as of 08/05/2024 - azithromycin (ZITHROMAX Z-LUAN) 250 mg tablet Take 2 tablets day one, then, 1 tablet daily until gone. - ALPRAZolam (XANAX) 0.5 mg tablet Take 0.5 mg by mouth at bedtime as needed. - naratriptan (AMERGE) 2.5 mg tablet Take 1 tablet (2.5 mg) by mouth as needed. 2.5 mg at onset of headache, may repeat in 4 hours if needed - promethazine (PHENERGAN) 25 mg tablet Take 0.5-1 tablets by mouth every 6 hours as needed. - diclofenac, EC, (VOLTAREN) 50 mg EC tablet Take 1 tablet by mouth two times a day as needed. - fluticasone (FLONASE) 50 mcg/actuation nasal spray Use 2 Sprays in each nostril once daily. Rinse mouth after use. - cholecalciferol (VITAMIN D3) 1,000 unit tab tablet Take 1 tablet by mouth once daily. - loperamide (ANTI-DIARRHEAL) 2 mg cap(s) Take 1 capsule by mouth four times a day as needed for diarrhea. - dilTIAZem CD (CARTIA XT) 180 mg 24 hr capsule Take 1 capsule by mouth once daily. - topiramate (TOPAMAX) 100 mg tablet TAKE 2 TABLETS TWICE A DAY IN THE MORNING AND AT BEDTIME - pantoprazole DR (PROTONIX) 40 mg tablet Take 1 tablet by mouth two times a day before meals at 6 am and 4 pm. Take on empty stomach, 1/2 hr before meal. - cyclobenzaprine (FLEXERIL) 10 mg tablet Take 1 tablet by mouth at bedtime as needed for muscle spasm or pain. - ibuprofen (MOTRIN) 800 mg tablet Take 1 tablet by mouth every 8 hours as needed for pain. Take with food. Problem List As Of Date 08/05/2024 Noted Resolved Concussion with no loss of consciousness [S06.0* 07/09/2019 Sprain of neck [S13.9XXA] 07/09/2019 Sprain of thoracic region [S23.9XXA] 07/09/2019 Migraine variant [G43.809] Disturbance of skin sensation [R20.9] 07/09/2019 ESOPHAGEAL REFLUX [K21.9] Displacement of intervertebral disc of thoracol*11/30/2006 Bee sting allergy [T63.91XA] 04/28/2008 Sprain of lumbosacral (joint) (ligament) [S33.9*09/29/2008 07/09/2019 Painful respiration [R07.1] 10/19/2008 08/21/2013 Bruxism (teeth grinding) [F45.8] 08/16/2011 Lumbago [M54.50] 07/03/2012 07/09/2019 Cervicalgia [M54.2] 08/02/2012 DDD (degenerative disc disease), lumbar [M51.36*08/02/2012 07/09/2019 Lumbar spondylosis [M47.816] 08/02/2012 07/09/2019 Chronic back pain [M54.9, G89.29] 08/02/2012 Hypercholesteremia [E78.00] Bright red rectal bleeding [K62.5] 07/29/2015 07/29/2015 Nausea [R11.0] 07/29/2015 07/29/2015 Non-cardiac chest pain [R07.89] 04/03/2017 07/09/2019 Displacement of cervical intervertebral disc wi*05/06/2018 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 Address: [address] [place] [address] Performed By: #### 5 0190-8, 1798-8, 3040-3, 2276-4 ####[facility] LABCLIA [id number] [place] [address] [place] HAV IgM Ser Qlon 08-05-2024 HAV IgM Ql (S) Negative Normal Negative [facility] Comment on above: Order Comment: Speci men Type: BLOOD SPECIMENOrdering Facility: [facility] Address: [address] [place] [address] Result Comment: No e vidence of recent infection with Hepatitis A virus. Performed By: #### 5 195-3, 29687-2 ####[facility] LABCLIA [id number] [place] [address] [place] HBV core Ab Ser Qlon 024 HBV core Ab Ql (S) Positive Abnormal Negative [facility] Comment on above: Order Comment: Speci glenny Type: BLOOD SPECIMENOrdering Facility: [facility] Address: [address] [place] [address] Result Comment: The result suggests either current or past infection with Hepatitis B virus. Non-specific reactivity may at times be seen with this test due to some underlying phenomena. Please correlate with HBsAg result and medical history. Performed By: #### 5 195-3, 71563-3, 62411-1, 88041-2 ####[facility] LABIA [id number] [place] [address] [place] HBV core IgM Ser Qlon 2023 HBV core IgM Ql (S) Negative Normal Negative [facility] Comment on above: Order Comment: Alfred murrieta Type: BLOOD SPECIMENOrdering Facility: [facility] Address: [address] [place] [address] Result Comment: No e vidence of recent infection with Hepatitis B virus. Should recent infection be suspected, repeat testing may be considered 3-4 weeks after this draw. Performed By: #### 5 195-3, 60606-2, 12895-6, 51999-1 ####[facility] LABIA [id number] [place] [address] [place] HBV surface Ab Ql (S)on 07-12 HBV surface Ab Qn (S) 195.74 mIU/mL Normal [facility] Comment on above: Order Comment: Alfred murrieta Type: BLOOD SPECIMENOrdering Facility: [facility] Address: [address] [place] [address] Result Comment: <8 m IU/mL: No serological evidence of immunity to Hepatitis B Virus. >/= 8 to <12 mIU/mL: No serological evidence of immunity to Hepatitis B Virus. >/= 12 mIU/mL: Consistent with serological evidence of immunity to Hepatitis B Virus. Performed By: #### 5 195-3, 61330-3, 00004-9, 37986-9 ####[facility] LABCLIA [id number] [address] [place] HBV surface Ab Ser Qlon 07-12 HBV surface Ab Ql (S) Positive Normal [facility] Comment on above: Order Comment: Speci men Type: BLOOD SPECIMENOrdering Facility: [facility] Address: [address] [place] [address] Result Comment: Cons istent with serological evidence of immunity to Hepatitis B Virus. Performed By: #### 5 195-3, 73820-9, 98218-1, 23125-5 ####[facility] LABCLIA [id number] [address] OF [place] HBV surface Ag Ser Qlon 07-12 HBV surface Ag Ql (S) Negative Normal Negative [facility] Comment on above: Order Comment: Speci men Type: BLOOD SPECIMENOrdering Facility: [facility] Address: [address] [place] [address] Performed By: #### 5 195-3, 09597-2, 14204-3, 84403-6 ####[facility] LABCLIA [id number] [address] [place] Performed By: #### 5 195-3, 72706-0 ####[facility] LABCLIA [id number] [address] [place] HCV Ab Ser Qlon 08-05-2024 HCV Ab Ql (S) Negative Normal Negative [facility] Comment on above: Order Comment: Speci men Type: BLOOD SPECIMENOrdering Facility: [facility] Address: [address] [place] [address] Result Comment: The result suggests no evidence of active infection with Hepatitis C virus. Should recent infection be suspected, repeat testing may be considered 4-6 weeks after this draw. Performed By: #### 1 6128-1 ####[facility] LABCLIA [id number] [place] [id number] [place] Iron and Iron binding capaci ty panelon 08-05-2024 Iron [Mass/Vol] 111 ug/dL Normal 41-186 [facility] Comment on above: Order Comment: Speci men Type: BLOOD SPECIMENOrdering Facility: [facility] Address: [address] [place] [address] Performed By: #### 5 0190-8, 1798-8, 0-3, 6-4 ####[facility] LABIA [id number] [place] [address] [place] Iron binding capacity [Mass/Vol] 336 ug/dL Normal 232-386 [facility] Comment on above: Order Comment: Speci men Type: BLOOD SPECIMENOrdering Facility: [facility] Address: [address] [place] [address] Performed By: #### 5 0190-8, 1798-8, 0-3, 2275-4 ####[facility] LABIA [id number] [place] [address] [place] Iron/TIBC [Molar ratio] 33.0 % Normal 15.0-57.0 [facility] Comment on above: Order Comment: Speci men Type: BLOOD SPECIMENOrdering Facility: [facility] Address: [address] [place] [address] Performed By: #### 5 0190-8, 1798-8, 0-3, 2275-4 ####[facility] LABIA [id number] [place] [id number] [place] Lipase SerPl-cCncon 08-05-20 24 Lipase [Catalytic activity/Vol] 45 U/L Normal 16-61 [facility] Comment on above: Order Comment: Speci men Type: BLOOD SPECIMENOrdering Facility: [facility] Address: [address] [place] [address] Performed By: #### 5 0190-8, 1798-8, 3040-3, 2276-4 ####[facility] LABCLIA [id number] [facility] [place] [address] [place] US ABD RIGHT UPPER QUADRANTo n 08-05-2024 US ABD RIGHT UPPER QUADRANT * * *Final Report* * * DATE OF EXAM: Aug 05 2024 1:47PM U 1032 - US ABD RIGHT UPPER QUADRANT / PROCEDURE REASON: Elevated LFTs * * * * Physician Interpretation * * * * EXAM TITLE: US ABD RIGHT UPPER QUADRANT HISTORY: Abnormal liver function test TECHNIQUE: Sonography of the right upper quadrant was performed. Images were obtained and stored in a permanent archive. MQ: URUQ_1 COMPARISON: CT abdomen pelvis on 05/02/2024 RESULT: Limitations: Bowel gas. Pancreas: Normal sonographic appearance in the visualized portions. Portions obscured: tail Liver: Echotexture: Normal, homogeneous. Echogenicity: Slight increase in echogenicity Surface contour: Smooth Lesions: None. MPV: Patent. Biliary: No intrahepatic biliary duct dilation. CBD: 8 mm in diameter. Gallbladder: Surgically absent. Right Kidney: Within normal limits. Ascites: None. IMPRESSION: Slight increase in echogenicity of the liver. Status post cholecystectomy. Soft Crab Shedder: SUZANNE Transcribe Date/Time: Aug 05 2024 1:48P Dictated by : MOISÉS PETERSON MD This examination was interpreted and the report reviewed and electronically signed by: MOISÉS PETERSON MD on Aug 05 2024 1:51PM EST [id number] Normal [facility] US Abdomen RUQon 08-05-2024 IMPRESSION: Slight increase in echogenicity of the liver. Status post cholecystectomy. Soft Crab Shedder: SUZANNE Transcribe Date/Time: Aug 05 2024 1:48P Dictated by : MOISÉS PETERSON MD This examination was interpreted and the report reviewed and electronically signed by: MOISÉS PETERSON MD on Aug 05 2024 1:51PM EST DIVISION OF RADIOLOGY * * *Final Report* * * DATE OF EXAM: Aug 05 2024 1:47PM [facility] 1032 - US ABD RIGHT UPPER QUADRANT / PROCEDURE REASON: Elevated LFTs * * * * Physician Interpretation * * * * EXAM TITLE: US ABD RIGHT UPPER QUADRANT HISTORY: Abnormal liver function test TECHNIQUE: Sonography of the right upper quadrant was performed. Images were obtained and stored in a permanent archive. MQ: URUQ_1 COMPARISON: CT abdomen pelvis on 05/02/2024 RESULT: Limitations: Bowel gas. Pancreas: Normal sonographic appearance in the visualized portions. Portions obscured: tail Liver: Echotexture: Normal, homogeneous. Echogenicity: Slight increase in echogenicity Surface contour: Smooth Lesions: None. MPV: Patent. Biliary: No intrahepatic biliary duct dilation. CBD: 8 mm in diameter. Gallbladder: Surgically absent. Right Kidney: Within normal limits. Ascites: None. DIVISION OF RADIOLOGY Provider, [facility] - 08/05/2024 * * *Final Report* * * DATE OF EXAM: Aug 05 2024 1:47PM [facility] 1032 - US ABD RIGHT UPPER QUADRANT / PROCEDURE REASON: Elevated LFTs * * * * Physician Interpretation * * * * EXAM TITLE: US ABD RIGHT UPPER QUADRANT HISTORY: Abnormal liver function test TECHNIQUE: Sonography of the right upper quadrant was performed. Images were obtained and stored in a permanent archive. MQ: URUQ_1 COMPARISON: CT abdomen pelvis on 05/02/2024 RESULT: Limitations: Bowel gas. Pancreas: Normal sonographic appearance in the visualized portions. Portions obscured: tail Liver: Echotexture: Normal, homogeneous. Echogenicity: Slight increase in echogenicity Surface contour: Smooth Lesions: None. MPV: Patent. Biliary: No intrahepatic biliary duct dilation. CBD: 8 mm in diameter. Gallbladder: Surgically absent. Right Kidney: Within normal limits. Ascites: None. IMPRESSION IMPRESSION: Slight increase in echogenicity of the liver. Status post cholecystectomy. Soft Crab Shedder: SUZANNE Transcribe Date/Time: Aug 05 2024 1:48P Dictated by : MOISÉS PETERSON MD This examination was interpreted and the report reviewed and electronically signed by: MOISÉS PETERSON MD on Aug 05 2024 1:51PM [facility] Radiology Study observation (narrative) [facility] US Abdomen RUQOrdered By: Leslie bunch Provider on 08-05-2024 [facility] US Pelvison 08-05-2024 Radiology Study observation (narrative) [facility] CBC panel Auto (Bld)on 08-04 Erythrocyte distribution width (RBC) [Ratio] 13.3 % 11.5 - 15.0 % [facility] Hematocrit (Bld) [Volume fraction] 41.8 % 36.0 - 46.0 % [facility] Hemoglobin (Bld) [Mass/Vol] 13.2 g/dL 11.5 - 15.5 g/dL [facility] Interpretation and review of laboratory results Abnormal [facility] MCH (RBC) [Entitic mass] 32.4 pg 26.0 - 34.0 pg [facility] MCHC (RBC) [Mass/Vol] 31.6 g/dL 30.5 - 36.0 g/dL [facility] MCV (RBC) [Entitic vol] 102.7 fL High 80.0 - 100.0 fL [facility] Nucleated RBC (Bld) [#/Vol] NINF [facility] Platelet mean volume (Bld) [Entitic vol] 10.2 fL 9.0 - 12.7 fL [facility] Platelets (Bld) [#/Vol] 235 10*3/uL [facility] RBC (Bld) [#/Vol] 4.07 10*6/uL 3.90 - 5.2 0 m/uL [facility] WBC (Bld) [#/Vol] 6.89 10*3/uL [facility] Erythrocyte distribution width (RBC) [Ratio] 13.3 % Normal 11.5-15.0 [facility] Comment on above: Order Comment: Speci men Type: BLOOD SPECIMENOrdering Facility: [facility] Address: [address] [place] [address] Performed By: #### 5 8410-2 ####[facility] LABCLIA [id number] [place] [address] [place] Hematocrit (Bld) [Volume fraction] 41.8 % Normal 36.0-46.0 [facility] Comment on above: Order Comment: Speci men Type: BLOOD SPECIMENOrdering Facility: [facility] Address: [address] [place] [address] Performed By: #### 5 8410-2 ####[facility] LABCLIA [id number] [place] [address] [place] Hemoglobin (Bld) [Mass/Vol] 13.2 g/dL Normal 11.5-15.5 [facility] Comment on above: Order Comment: Speci men Type: BLOOD SPECIMENOrdering Facility: [facility] Address: [address] [place] [address] Performed By: #### 5 8410-2 ####[facility] LABCLIA [id number] [place] [address] [place] MCH (RBC) [Entitic mass] 32.4 pg Normal 26.0-34.0 [facility] Comment on above: Order Comment: Speci men Type: BLOOD SPECIMENOrdering Facility: [facility] Address: [address] [place] [address] Performed By: #### 5 8410-2 ####[facility] LABCLIA [id number] [place] [address] [place] MCHC (RBC) [Mass/Vol] 31.6 g/dL Normal 30.5-36.0 [facility] Comment on above: Order Comment: Speci men Type: BLOOD SPECIMENOrdering Facility: [facility] Address: [address] [place] [address] Performed By: #### 5 8410-2 ####[facility] LABCLIA [id number] [place] [address] [place] MCV (RBC) [Entitic vol] 102.7 fL High 80.0-100.0 [facility] Comment on above: Order Comment: Speci men Type: BLOOD SPECIMENOrdering Facility: [facility] Address: [address] [place] [address] Performed By: #### 5 8410-2 ####[facility] LABCLIA [id number] [place] [address] [place] Nucleated RBC (Bld) [#/Vol] 10*3/uL Normal <0.01 [facility] Comment on above: Order Comment: Speci men Type: BLOOD SPECIMENOrdering Facility: [facility] Address: [address] [place] [address] Performed By: #### 5 8410-2 ####[facility] LABIA [id number] [place] [address] [place] Platelet mean volume (Bld) [Entitic vol] 10.2 fL Normal 9.0-12.7 [facility] Comment on above: Order Comment: Speci men Type: BLOOD SPECIMENOrdering Facility: [facility] Address: [address] [place] [address] Performed By: #### 5 8410-2 ####[facility] LABIA [id number] [place] [address] [place] Platelets (Bld) [#/Vol] 235 10*3/uL Normal 150-400 [facility] Comment on above: Order Comment: Speci men Type: BLOOD SPECIMENOrdering Facility: [facility] Address: [address] [place] [address] Performed By: #### 5 8410-2 ####[facility] LABIA [id number] [place] [address] [place] RBC (Bld) [#/Vol] 4.07 10*6/uL Normal 3.90-5.20 [facility] Comment on above: Order Comment: Speci men Type: BLOOD SPECIMENOrdering Facility: [facility] Address: [address] [place] [address] Performed By: #### 5 8410-2 ####[facility] LABIA [id number] [place] [address] [place] WBC (Bld) [#/Vol] 6.89 10*3/uL Normal 3.70-11.00 [facility] Comment on above: Order Comment: Speci men Type: BLOOD SPECIMENOrdering Facility: [facility] Address: [address] [place] [address] Performed By: #### 5 8410-2 ####[facility] LABCLIA [id number] [place] [id number] OF [facility] CNOVon 08-04-2024 CNOV Office Visit (INTMWS ) -------- SAULO GEIGER I ([id number]) 1960 F NFR Date Time Provider Department 08/04/24 3:00 PM CECILIA SPARKS INTMWS During your visit today, we recorded the following information about you: Temperature Pulse Blood pressure Weight 98.8 degrees 74/minute 144/82 62.5 kg Cecilia Sparks, ENGINE MANAGER.[employer] TECHNICIAN 08/04/2024 3:49 PM Signed CC: Patient presents with: Sinus Problem HPI Saulo Geiger is a 64 year old female who presents today for above. Sinus symptoms started around 07/01. She was treated with Augmentin, then Doxycycline due to failure to improve. Patient could not tolerate Doxycycline and this was switched to Bactrim on 07/18. She called on 08/01 to report symptoms still had not improved. Chest x-ray was ordered, results were negative. Today patient reports symptoms are stable. Symptoms include: nausea, vomiting, non-productive cough, headache, yellow nasal drainage, fatigue, poor appetite, weakness, SOB with mild exertion, fatigues easily and positional lightheadedness. She denies chest pain, palpitations, edema, PND, orthopnea, hemoptysis, feeling faint or syncope. No history of respiratory disease, seasonal/environmental allergies or heart disease. She does not smoke. She has not been checked for COVID since symptoms started. She has chronic abdominal pain and diarrhea, no worse than usual. She denies nausea or vomiting prior to respiratory illness but she does have phenergan to use as needed, this is not helping. Review of Systems Constitutional: Negative for chills, diaphoresis, fever and unexpected weight change. HENT: Negative for sinus pressure and sinus pain. Eyes: Positive for discharge (watery). Respiratory: Negative for choking, chest tightness, wheezing and stridor. Gastrointestinal: Negative for abdominal distention, blood in stool and constipation. Genitourinary: Negative for decreased urine volume and difficulty urinating. Skin: Negative for pallor. Neurological: Negative for dizziness, tremors, facial asymmetry, speech difficulty and numbness. PAST MEDICAL HISTORY Diagnosis Date Bee sting allergy 04/28/2008 Concussion with no loss of consciousness Displacement of intervertebral disc, site unspecified, without myelopathy 11/30/2006 [facility] claim Disturbance of skin sensation Esophageal reflux Headaches migraines Hypercholesteremia Mental disorder anxiety Multiple rib fractures 2012 Fell down stairs to basement-- 5th and 6th rib fractures and left great toe fracture Snoring Sprain of lumbosacral (joint) (ligament) Sprain of neck [facility] claim Sprain of thoracic region [facility] claim Tubular adenoma of colon 07/29/2015 Dr. Caban Variants of migraine, not elsewhere classified, without mention of intractable migraine without mention of status migrainosus PAST SURGICAL HISTORY Procedure Laterality Date CHOLECYSTECTOMY 02/26/2017 Cholecystectomy; [facility] with Dr. Alejo COLONOSCOPY FLX DX W/COLLJ SPEC WHEN PFRMD 07/29/2015 Colonoscopy COLONOSCOPY SCREENING 2019 COLONOSCOPY SCREENING 06/28/2023 repeat in 10 years, Dr. Alejo EGD 05/08/2024 ESOPHAGOGASTRODUODENOSCO PY TRANSORAL DIAGNOSTIC 07/29/2015 EGD ESOPHAGOGASTRODUODENOSCO PY TRANSORAL DIAGNOSTIC 04/05/2017 EGD PAST SURGICAL HISTORY OF bilat feet - reconstruction ALLERGIES Bee Venom Protein (Honey Bee), Morphine, Relafen [Nabumetone], Venom-Honey Bee, and Zolpidem MEDICATIONS ALPRAZolam (XANAX) 0.5 mg tablet Take 0.5 mg by mouth at bedtime as needed. naratriptan (AMERGE) 2.5 mg tablet Take 1 tablet (2.5 mg) by mouth as needed. 2.5 mg at onset of headache, may repeat in 4 hours if needed promethazine (PHENERGAN) 25 mg tablet Take 0.5-1 tablets by mouth every 6 hours as needed. diclofenac, EC, (VOLTAREN) 50 mg EC tablet Take 1 tablet by mouth two times a day as needed. fluticasone (FLONASE) 50 mcg/actuation nasal spray Use 2 Sprays in each nostril once daily. Rinse mouth after use. cholecalciferol (VITAMIN D3) 1,000 unit tab tablet Take 1 tablet by mouth once daily. loperamide (ANTI-DIARRHEAL) 2 mg cap(s) Take 1 capsule by mouth four times a day as needed for diarrhea. dilTIAZem CD (CARTIA XT) 180 mg 24 hr capsule Take 1 capsule by mouth once daily. topiramate (TOPAMAX) 100 mg tablet TAKE 2 TABLETS TWICE A DAY IN THE MORNING AND AT BEDTIME pantoprazole DR (PROTONIX) 40 mg tablet Take 1 tablet by mouth two times a day before meals at 6 am and 4 pm. Take on empty stomach, 1/2 hr before meal. cyclobenzaprine (FLEXERIL) 10 mg tablet Take 1 tablet by mouth at bedtime as needed for muscle spasm or pain. ibuprofen (MOTRIN) 800 mg tablet Take 1 tablet by mouth every 8 hours as needed for pain. Take with food. FAMILY HISTORY Problem Relation Age of Onset Breast Cancer Mother Diabetes Mother Heart Mother Cancer Father liver ca Diabetes Sister Social (more content not included)... Normal [facility] metabolic 2000 panelon 08-04-2024 Albumin [Mass/Vol] 4.7 g/dL 3.9 - 4.9 g/dL [facility] ALP [Catalytic activity/Vol] 183 U/L High 34 - 123 U/L [facility] ALT [Catalytic activity/Vol] 271 U/L High 7 - 38 U/L [facility] Anion gap [Moles/Vol] 13 mmol/L 8 - 15 mmol/L [facility] AST [Catalytic activity/Vol] 53 U/L High 13 - 35 U/L [facility] Bilirubin [Mass/Vol] 0.2 mg/dL 0.2 - 1 .3 mg/dL [facility] Calcium [Mass/Vol] 9.7 mg/dL 8.5 - 10. 2 mg/dL [facility] Chloride [Moles/Vol] 111 mmol/L High 98 - 10 7 mmol/L [facility] CO2 [Moles/Vol] 20 mmol/L Low 22 - 30 mmol/L [facility] Creatinine [Mass/Vol] 1.17 mg/dL High 0.58 - 0.96 mg/dL [facility] GFR/1.73 sq M.predicted among non-blacks MDRD (S/P/Bld) [Vol rate/Area] 53 mL/min/{1.73_m2} Low - PINF [facility] Comment on above: Estimated Glomerular Filtration Rate (eGFR) is calculated using the 2020 CKD-EPI creatinine equation. This equation utilizes serum creatinine, sex, and age as parameters. The creatinine assay has traceable calibration to isotope dilution-mass spectrometry. Refer to KDIGO guidelines for clinical interpretation. In patients with unstable renal function, e.g. those with acute kidney injury, the eGFR may not accurately reflect actual GFR. Glucose [Mass/Vol] 103 mg/dL High 74 - 99 mg/dL [facility] Comment on above: The [place] Diabete s Association (ADA) provides guidance for cutoff values for fasting glucose and random glucose. The ADA defines fasting as no caloric intake for at least 8 hours. Fasting plasma glucose results between 100 to 125 [...] Standards of Medical Care in Diabetes 2016, [place] Diabetes Association. Diabetes Care. 2016.39(Suppl 1). Interpretation and review of laboratory results Abnormal [facility] Potassium [Moles/Vol] 3.9 mmol/L 3.7 - 5.1 mmol/L [facility] Protein [Mass/Vol] 7.0 g/dL 6.3 - 8.0 g/dL [facility] Sodium [Moles/Vol] 144 mmol/L 136 - 144 mmol/L [facility] Urea nitrogen [Mass/Vol] 20 mg/dL 7 - 21 mg/dL [facility] Albumin [Mass/Vol] 4.7 g/dL Normal 3.9-4.9 [facility] Comment on above: Order Comment: Speci men Type: BLOOD SPECIMENOrdering Facility: [facility] Address: [address] [id number] Performed By: #### 2 4323-8 ####[facility] LABCLIA [id number] [place] [address] [place] ALP [Catalytic activity/Vol] 183 U/L High 34-123 [facility] Comment on above: Order Comment: Speci men Type: BLOOD SPECIMENOrdering Facility: [facility] Address: [address] [place] [address] Performed By: #### 2 4323-8 ####[facility] LABCLIA [id number] [place] [address] [place] ALT [Catalytic activity/Vol] 271 U/L High 7-38 [facility] Comment on above: Order Comment: Speci men Type: BLOOD SPECIMENOrdering Facility: [facility] Address: [address] [place] [address] Performed By: #### 2 4323-8 ####[facility] LABCLIA [id number] [place] [address] [place] Anion gap [Moles/Vol] 13 mmol/L Normal 8-15 [facility] Comment on above: Order Comment: Speci men Type: BLOOD SPECIMENOrdering Facility: [facility] Address: [address] [place] [address] Performed By: #### 2 4323-8 ####[facility] LABCLIA [id number] [place] [id number] [place] AST [Catalytic activity/Vol] 53 U/L High 13-35 [facility] Comment on above: Order Comment: Speci men Type: BLOOD SPECIMENOrdering Facility: [facility] Address: [address] [place], [place] [address] Performed By: #### 2 4323-8 ####[facility] LABCLIA [id number] [place] [address] [place] Bilirubin [Mass/Vol] 0.2 mg/dL Normal 0.2-1.3 [facility] Comment on above: Order Comment: Speci men Type: BLOOD SPECIMENOrdering Facility: [facility] Address: [address] [place] [address] Performed By: #### 2 4323-8 ####[facility] LABCLIA [id number] [place] [address] [place] Calcium [Mass/Vol] 9.7 mg/dL Normal 8.5-10.2 [facility] Comment on above: Order Comment: Speci men Type: BLOOD SPECIMENOrdering Facility: [facility] Address: [address] [place] [address] Performed By: #### 2 4323-8 ####[facility] LABCLIA [id number] [place] [address] [place] Chloride [Moles/Vol] 111 mmol/L High 98-107 [facility] Comment on above: Order Comment: Speci men Type: BLOOD SPECIMENOrdering Facility: [facility] Address: [address] [place] [address] Performed By: #### 2 4323-8 ####[facility] LABCLIA [id number] [place] [address] [place] CO2 [Moles/Vol] 20 mmol/L Low 22-30 [facility] Comment on above: Order Comment: Speci men Type: BLOOD SPECIMENOrdering Facility: [facility] Address: [address] [place] [address] Performed By: #### 2 4323-8 ####[facility] LABCLIA [id number] [place] [address] [place] Creatinine [Mass/Vol] 1.17 mg/dL High 0.58-0.96 [facility] Comment on above: Order Comment: Speci men Type: BLOOD SPECIMENOrdering Facility: [facility] Address: [address] [place] [address] Performed By: #### 2 4323-8 ####[facility] LABIA [id number] [place] [address] [place] Creatinine and Glomerular filtration rate.predicted panel (S/P/Bld) 53 mL/min/1.73m??? Low >=60 [facility] Comment on above: Order Comment: Alfred murrieta Type: BLOOD SPECIMENOrdering Facility: [facility] Address: [address] [place] [address] Result Comment: Alina mated Glomerular Filtration Rate (eGFR) is calculated using the 2020 CKD-EPI creatinine equation. This equation utilizes serum creatinine, sex, and age as parameters. The creatinine assay has traceable calibration to isotope dilution-mass spectrometry. Refer to KDIGO guidelines for clinical interpretation. In patients with unstable renal function, e.g. those with acute kidney injury, the eGFR may not accurately reflect actual GFR. Performed By: #### 2 4323-8 ####[facility] LABIA [id number] [place] [address] [place] Glucose [Mass/Vol] 103 mg/dL High 74-99 [facility] Comment on above: Order Comment: Alfred glenny Type: BLOOD SPECIMENOrdering Facility: [facility] Address: [address] [place] [address] Result Comment: The [place] Diabetes Association (ADA) provides guidance for cutoff values for fasting glucose and random glucose. The ADA defines fasting as no caloric intake for at least 8 hours. Fasting plasma glucose results between 100 to 125 [...] Standards of Medical Care in Diabetes 2016, [place] Diabetes Association. Diabetes Care. 2016.39(Suppl 1). Performed By: #### 2 4323-8 ####[facility] LABCLIA [id number] [place] [address] [place] Potassium [Moles/Vol] 3.9 mmol/L Normal 3.7-5.1 [facility] Comment on above: Order Comment: Speci men Type: BLOOD SPECIMENOrdering Facility: [facility] Address: [address] [place] [address] Performed By: #### 2 4323-8 ####[facility] LABCLIA [id number] [place] [address] [place] Protein [Mass/Vol] 7.0 g/dL Normal 6.3-8.0 [facility] Comment on above: Order Comment: Speci men Type: BLOOD SPECIMENOrdering Facility: [facility] Address: [address] [place] [address] Performed By: #### 2 4323-8 ####[facility] LABIA [id number] [place] [address] [place] Sodium [Moles/Vol] 144 mmol/L Normal 136-144 [facility] Comment on above: Order Comment: Speci men Type: BLOOD SPECIMENOrdering Facility: [facility] Address: [address] [place] [address] Performed By: #### 2 4323-8 ####[facility] LABCLIA [id number] [place] [address] [place] Urea nitrogen [Mass/Vol] 20 mg/dL Normal 7-21 [facility] Comment on above: Order Comment: Speci men Type: BLOOD SPECIMENOrdering Facility: [facility] Address: [address] [place] [address] Performed By: #### 2 4323-8 ####[facility] LABCLIA [id number] [place] [id number] [place] [id number] 08-04-2024 ECG01 Ventricular Rate : 6 6 BPM Atrial Rate : 66 BPM P-R Interval : 162 ms QRS Duration : 86 ms Q-T Interval : 398 ms QTC Calculation(Bazett) : 417 ms Calculated P [place] : 63 degrees Calculated R [place] : 22 degrees Calculated T [place] : 34 degrees Suspect electrode reversal: V3 V4 ; interpretation assumes no reversal NORMAL SINUS RHYTHM NORMAL ECG Confirmed by MD HOPKINS GREGORY () on 08/06/2024 12:58:30 PM NAME : SAULO GEIGER PID : [id number] : 1960 Gender : Female Race : ORD : Procedure Date : Aug 04 2024 15:31:05 Edit Date : Aug 06 2024 12:58:34 Diagnosis: Suspect electrode reversal: V3 V4 ; interpretation assumes no reversal NORMAL SINUS RHYTHM NORMAL ECG Confirmed by MD HOPKINS GREGORY () on 08/06/2024 12:58:30 PM Test Reason : Location : 185 : [facility] Overread By : MD HOPKINS GREGORY Edited By : MD HOPKINS GREGORY Referred By : , Acquired by : Robbie luo [facility] CNOVon 08-01-2024 CNOV Office Visit (OBGYWM ) -------- SAULO GEIGER I ([id number]) 1960 F NFR Date Time Provider Department 08/01/24 1:30 PM EV FINN OBGYWM During your visit today, we recorded the following information about you: Blood pressure Weight Height 128/74 62.4 kg 1.64 m Ev Finn APRN.CNP 08/01/2024 2:12 PM Signed 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 Feels like that is a mass on the left side c/o of pain only on the left side. Postmenopausal: Yes since age 46 HRT use: No. Last Pap: 07/18/2012 normal HPV: 07/11/2012 negative History of abnormal pap: No Last mammogram: 2018 normal, Pt reported 2021 normal. History of abnormal mammogram: No Pt reported Sexually active: Yes Pain with intercourse: No Postcoital bleeding: Yes OB History T2 L2 SAB0 IAB0 Ectopic0 Multiple0 Live Births0 Display Trimmer History LMP: 10/18/2006, Postmenopausal Age at Menarche: Age at First : Age at Menopause: Display Trimmer History Comments: Sexual Activity: Yes; Male; post menopausal Contraception: Other PAST MEDICAL HISTORY Diagnosis Date Bee sting allergy 04/28/2008 Concussion with no loss of consciousness Displacement of intervertebral disc, site unspecified, without myelopathy 11/30/2006 [facility] claim Disturbance of skin sensation Esophageal reflux Headaches migraines Hypercholesteremia Mental disorder anxiety Multiple rib fractures 2012 Fell down stairs to basement-- 5th and 6th rib fractures and left great toe fracture Snoring Sprain of lumbosacral (joint) (ligament) Sprain of neck [facility] claim Sprain of thoracic region [facility] claim Tubular adenoma of colon 07/29/2015 Dr. [place]an Variants of migraine, not elsewhere classified, without mention of intractable migraine without mention of status migrainosus PAST SURGICAL HISTORY Procedure Laterality Date CHOLECYSTECTOMY 02/26/2017 Cholecystectomy; [facility] with Dr. Alejo COLONOSCOPY FLX DX W/COLLJ SPEC WHEN PFRMD 07/29/2015 Colonoscopy COLONOSCOPY SCREENING 2019 COLONOSCOPY SCREENING 06/28/2023 repeat in 10 years, Dr. Alejo EGD 05/08/2024 ESOPHAGOGASTRODUODENOSCO PY TRANSORAL DIAGNOSTIC 07/29/2015 EGD ESOPHAGOGASTRODUODENOSCO PY TRANSORAL DIAGNOSTIC 04/05/2017 EGD PAST SURGICAL HISTORY OF bilat feet - reconstruction FAMILY HISTORY Problem Relation Age of Onset Breast Cancer Mother Diabetes Mother Heart Mother Cancer Father liver ca Diabetes Sister SOCIAL HISTORY Social History Tobacco Use Smoking status: Former Current packs/day: 0.00 Types: Cigarettes Quit date: 07/21/2015 Years since quittin.0 Smokeless tobacco: Never Tobacco comments: was smoking less than one half pack; had cut back until able to quit 08/10/2009 Vaping Use Vaping status: Never Used Substance Use Topics Alcohol use: Yes Comment: rarely Drug use: No REVIEW OF SYSTEMS Abdomen: No nausea, vomiting, diarrhea, or constipation. No bloating, early satiety, indigestion, or increased flatulence. Bladder: No dysuria, gross hematuria, urinary frequency, urinary urgency, or incontinence Breast: No breast lumps, nipple d/c, overlying skin changes, redness or skin retraction Allergies and current medication updated:Yes SENSITIVE EXAM: The sensitive examination was discussed with the Patient or Patient's Authorized Transportation Clerk. As applicable, any other physician, advance practice provider, medical student, or other health professional student that will be observing or involved in the sensitive examination for educational or training purposes was discussed with the Patient or Authorized Transportation Clerk. The Patient or Authorized Transportation Clerk has agreed to proceed with the sensitive examination. (Sensitive examination includes inspection and/or palpation of the breasts, pelvis, prostate and anorectal regions). EXAM: LMP 10/18/2006 GENERAL: pleasant, female in no apparent distress HEENT: Normocephalic, atraumatic, mucus membranes moist, and no lesions DERMATOLOGY: Normal, without lesions, non-icteric, and non-hirsute BREAST: soft, non-tender, symmetric, no dominant mass, normal nipple-areolar complex, no lymphadenopathy, and no nipple discharge CHEST: Normal inspiratory effort ABDOMEN: soft, no masses, and Moderate tenderness in LUQ, LLQ, periumbilical area PELVIC: external genitalia normal, normal Bartholin's glands, urethra, Stonewall's glands, no vulvar lesions, no cervical lesions, good vaginal support, physiologic discharge present, normal appearing perineal body and perianal region, vaginal lesion right vaginal wall polyp just inside opening BIMANUAL: uterus normal size, shape and consistency, no adnexal masses, and Mild tenderness RECTOVAGINAL: deferred. NEURO: alert and oriented x3,exam grossly no (more content not included)... Normal [facility] Wilbert 08-01-2024 CNPN Telephone (INTMWS) -------- SAULO GEIGER I ([id number]) 1960 F NFR Date Time Provider Department 08/01/24 AKIN ELLIOTT During your visit today, we recorded the following information about you: Jacqueline Newton RN 08/01/2024 11:38 AM Signed Pt reports she is still sick after trying 3 AB's. Was able to take the 3rd AB, bactrim, without vomiting, but was nauseous the whole time. Reports she has been sick since the middle of June. Still has a cough so bad, it's hard to stop coughing. Reports the cough is productive. Reports nose is runny, has hoarse voice. Reports she is SOB at rest. Reports she is so tired, she has to take 1/2 of a ginsing gummy bear to stay up- if she takes more than a half her heart races. Reports she also takes a senior centrum MVI, and a zinc once daily. Is eating activa yogart. Taking a sinus pill and flonase daily. Reports she has 6 dogs. Did not do a covid test. Wonders if she has walking pneumonia? Should CXR be done? Please advise patient: [phone] Cheyenne Gilbert APRN.BONY 08/01/2024 12:58 PM Signed Okay for a chest xray, order placed, depending on results she might need to follow back up for a recheck in the office. Charu Lopez LPN 08/01/2024 4:21 PM Signed PATIENT NOTIFIED OF SAME. Cheyenne Gilbert APRN.CNP 08/04/2024 8:14 AM Signed Please let her know that chest xray shows no issues. Cheyenne Gilbert APRN.Charu Hua LPN 08/04/2024 11:37 AM Signed PATIENT NOTIFIED OF SAME. Still not feeling well. Schedule with Cecilia Sparks at 3:00 pm today. Allergies As of Date: 08/01/2024 Noted Allergy Reaction BEE VENOM PROTEIN (HONEY BEE) 07/30/2023 16 - Unknown MORPHINE 04/03/2017 11 - Vomiting RELAFEN (NABUMETONE) 11/26/2008 6 - Diarrhea Comments: 2005 tried med VENOM-HONEY BEE 01/28/2023 16 - Unknown ZOLPIDEM 01/28/2023 14 - Other: See Comments Date Reviewed: 08/01/2024 Reviewed by: Wanda Sparks LPN - Fully Assessed Reason for Visit: Patient Update [1234] Primary Visit Diagnosis:Subacute cough [R05.2] Order(s):XR CHEST 2V FRONTAL/LAT [[id number]] Order #: [id number] FUTURE Prescriptions as of 08/04/2024 - ALPRAZolam (XANAX) 0.5 mg tablet Take 0.5 mg by mouth at bedtime as needed. - naratriptan (AMERGE) 2.5 mg tablet Take 1 tablet (2.5 mg) by mouth as needed. 2.5 mg at onset of headache, may repeat in 4 hours if needed - promethazine (PHENERGAN) 25 mg tablet Take 0.5-1 tablets by mouth every 6 hours as needed. - diclofenac, EC, (VOLTAREN) 50 mg EC tablet Take 1 tablet by mouth two times a day as needed. - fluticasone (FLONASE) 50 mcg/actuation nasal spray Use 2 Sprays in each nostril once daily. Rinse mouth after use. - cholecalciferol (VITAMIN D3) 1,000 unit tab tablet Take 1 tablet by mouth once daily. - loperamide (ANTI-DIARRHEAL) 2 mg cap(s) Take 1 capsule by mouth four times a day as needed for diarrhea. - dilTIAZem CD (CARTIA XT) 180 mg 24 hr capsule Take 1 capsule by mouth once daily. - topiramate (TOPAMAX) 100 mg tablet TAKE 2 TABLETS TWICE A DAY IN THE MORNING AND AT BEDTIME - pantoprazole DR (PROTONIX) 40 mg tablet Take 1 tablet by mouth two times a day before meals at 6 am and 4 pm. Take on empty stomach, 1/2 hr before meal. - cyclobenzaprine (FLEXERIL) 10 mg tablet Take 1 tablet by mouth at bedtime as needed for muscle spasm or pain. - ibuprofen (MOTRIN) 800 mg tablet Take 1 tablet by mouth every 8 hours as needed for pain. Take with food. Problem List As Of Date 08/01/2024 Noted Resolved Concussion with no loss of consciousness [S06.0* 07/09/2019 Sprain of neck [S13.9XXA] 07/09/2019 Sprain of thoracic region [S23.9XXA] 07/09/2019 Migraine variant [G43.809] Disturbance of skin sensation [R20.9] 07/09/2019 ESOPHAGEAL REFLUX [K21.9] Displacement of intervertebral disc of thoracol*11/30/2006 Bee sting allergy [T63.91XA] 04/28/2008 Sprain of lumbosacral (joint) (ligament) [S33.9*09/29/2008 07/09/2019 Painful respiration [R07.1] 10/19/2008 08/21/2013 Bruxism (teeth grinding) [F45.8] 08/16/2011 Lumbago [M54.50] 07/03/2012 07/09/2019 Cervicalgia [M54.2] 08/02/2012 DDD (degenerative disc disease), lumbar [M51.36*08/02/2012 07/09/2019 Lumbar spondylosis [M47.816] 08/02/2012 07/09/2019 Chronic back pain [M54.9, G89.29] 08/02/2012 Hypercholesteremia [E78.00] Bright red rectal bleeding [K62.5] 07/29/2015 07/29/2015 Nausea [R11.0] 07/29/2015 07/29/2015 Non-cardiac chest pain [R07.89] 04/03/2017 07/09/2019 Displacement of cervical intervertebral disc wi*05/06/2018 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 Address: [address] [place] [address] Performed By: #### H PVHRT ####[facility] LABCLIA [id number] [facility] [id number] [address] [place] HPV 18 Ag Ql (Unsp spec) Not detected Normal Not detected [facility] Comment on above: Order Comment: Speci men Type: FLUID SPECIMENOrdering Facility: [facility] Address: [address] [place] [address] Performed By: #### H PVHRT ####[facility] LABCLIA [id number] [place] [address] [place] HPV 31+33+35+39+45+51+52+56 +58+59+66+68 DNA HALEY+probe Ql (Cvx) Not detected Normal Not detected [facility] Comment on above: Order Comment: Speci men Type: FLUID SPECIMENOrdering Facility: [facility] Address: [address] [place] [address] Result Comment: High Risk HPV Other Type includes HPV types 31, 33, 35, 39, 45, 51, 52, 56, 58, 59, 66 and 68. Performed By: #### H PVHRT ####[facility] LABCLIA [id number] [place] [address] [place] PAP TESTon 08-01-2024 ADEQUACY Satisfactory for interpretation. Normal [facility] Comment on above: Order Comment: Speci men Type: FLUID SPECIMENOrdering Facility: [facility] Address: [address] [place] [address] Performed By: #### L [id number] ####[facility] LABCLIA [id number] [place] [address] [place] CASE REPORT Normal [facility] Comment on above: Order Comment: Speci men Type: FLUID SPECIMENOrdering Facility: [facility] Address: [address] [place] [address] Result Comment: Gyne cologic Cytology Report Case: [id number] Authorizing Provider: Ev Finn APRN.BIOMASS PLANT TECHNICIAN Collected: 08/01/2024 02:16 PM Ordering Location: OB/Gynecology Received: 08/01/2024 04:46 PM First Screen: Yessenia Mtz, CT, ASCP Specimen: Pap Test, ThinPrep, Cervix Performed By: #### L [id number] ####[facility] LABCLIA [id number] [place] [id number] [place] CLINICAL HISTORY, CYTOLOGY, VETERANS ADVISER Menopausal Normal [facility] Comment on above: Order Comment: Speci men Type: FLUID SPECIMENOrdering Facility: [facility] Address: [address] [place] [address] Performed By: #### L [id number] ####[facility] LABCLIA [id number] [place] [id number] [place] CYTOLOGY PAP OTHER INTERPRETATION Atrophic specimen. Normal [facility] Comment on above: Order Comment: Speci men Type: FLUID SPECIMENOrdering Facility: [facility] Address: [address] [place] [address] Performed By: #### L [id number] ####[facility] LABCLIA [id number] [place] [address] [place] FINAL PERFORMING LAB Normal [facility] Comment on above: Order Comment: Speci men Type: FLUID SPECIMENOrdering Facility: [facility] Address: [address] [place] [address] Result Comment: Tech nical component, pupil personnel services director screening performed at [facility], [address] [place] [address] [place] [address] CLIA# [id number] Diagnostic interpretation performed at [facility], [address] [place] [address] [place] [address] CLIA# [id number] Lockstitch Coat Joiner: Ko Pa M.D. Performed By: #### L [id number] ####[facility] LABCLIA [id number] [place] [address] [place] INTERPRETATION, CYTOLOGY, VETERANS ADVISER Normal [facility] Comment on above: Order Comment: Speci men Type: FLUID SPECIMENOrdering Facility: [facility] Address: [address] [place] [address] Result Comment: Nega tive for intraepithelial lesion or malignancy. Performed By: #### L [id number] ####[facility] LABCLIA [id number] [address] PAP DISCLAIMER COMMENT The Pap Smear is a screening test for cervical cancer. False negative results occur with all screening tests, emphasizing the need for rescreening at recommended intervals, and clinical correlation. Normal [facility] Comment on above: Order Comment: Speci men Type: FLUID SPECIMENOrdering Facility: [facility] Address: [address] [place] [address] Performed By: #### L [id number] ####[facility] LABIA [id number] [address] [place] PAP MARINE SAFETY OFFICER COMMENT This specimen has be en analyzed by the ThinPrep Imaging System, an automated imaging and review system, which assists the laboratory in evaluating cells on ThinPrep Pap tests. Following automated imaging, selected saeed from every slide are reviewed by a pupil personnel services director. Normal [facility] Comment on above: Order Comment: Speci men Type: FLUID SPECIMENOrdering Facility: [facility] Address: [address] [place] [address] Performed By: #### L [id number] ####[facility] [id number] [place] [address] [place] XR CHEST 2V FRONTAL/LATon XR CHEST 2V FRONTAL/LAT * * *Final Repor t* * * DATE OF EXAM: Aug 01 2024 4:59PM WOX 5291 - XR CHEST 2V FRONTAL/LAT / PROCEDURE REASON: Subacute cough * * * * Physician Interpretation * * * * EXAMINATION: CHEST RADIOGRAPH (2 VIEW FRONTAL and LATERAL) CLINICAL HISTORY: Subacute cough MQ: XC2_6 EXAM DATE/TIME: 08/01/2024 4:59 PM COMPARISON: Chest x-ray on 08/10/2023 RESULT: Lines, tubes, and devices: None. Lungs and pleura: No consolidation. No lung mass. No pleural effusion. No pneumothorax. Cardiomediastinal silhouette: Normal cardiomediastinal silhouette. Bones and soft tissues: Bilateral rib deformities remain unchanged. IMPRESSION: No acute radiographic abnormality. Soft Crab Shedder: [facility] Transcribe Date/Time: Aug 01 2024 8:39P Dictated by : MOISÉS PETERSON MD This examination was interpreted and the report reviewed and electronically signed by: MOISÉS PETERSON MD on Aug 01 2024 8:40PM EST [id number] Normal [facility] XR Chest PA and Lateralon IMPRESSION: No acute radiographic abnormality. Soft Crab Shedder: [facility] Transcribe Date/Time: Aug 01 2024 8:39P Dictated by : MOISÉS PETERSON MD This examination was interpreted and the report reviewed and electronically signed by: MOISÉS PETERSON MD on Aug 01 2024 8:40PM EST DIVISION OF RADIOLOGY * * *Final Report* * * DATE OF EXAM: Aug 01 2024 4:59PM WOX 5291 - XR CHEST 2V FRONTAL/LAT / PROCEDURE REASON: Subacute cough * * * * Physician Interpretation * * * * EXAMINATION: CHEST RADIOGRAPH (2 VIEW FRONTAL & LATERAL) CLINICAL HISTORY: Subacute cough MQ: XC2_6 EXAM DATE/TIME: 08/01/2024 4:59 PM COMPARISON: Chest x-ray on 08/10/2023 RESULT: Lines, tubes, and devices: None. Lungs and pleura: No consolidation. No lung mass. No pleural effusion. No pneumothorax. Cardiomediastinal silhouette: Normal cardiomediastinal silhouette. Bones and soft tissues: Bilateral rib deformities remain unchanged. DIVISION OF RADIOLOGY Provider, [facility] - 08/01/2024 * * *Final Report* * * DATE OF EXAM: Aug 01 2024 4:59PM WOX 5291 - XR CHEST 2V FRONTAL/LAT / PROCEDURE REASON: Subacute cough * * * * Physician Interpretation * * * * EXAMINATION: CHEST RADIOGRAPH (2 VIEW FRONTAL & LATERAL) CLINICAL HISTORY: Subacute cough MQ: XC2_6 EXAM DATE/TIME: 08/01/2024 4:59 PM COMPARISON: Chest x-ray on 08/10/2023 RESULT: Lines, tubes, and devices: None. Lungs and pleura: No consolidation. No lung mass. No pleural effusion. No pneumothorax. Cardiomediastinal silhouette: Normal cardiomediastinal silhouette. Bones and soft tissues: Bilateral rib deformities remain unchanged. IMPRESSION IMPRESSION: No acute radiographic abnormality. Soft Crab Shedder: [facility] Transcribe Date/Time: Aug 01 2024 8:39P Dictated by : MOISÉS PETERSON MD This examination was interpreted and the report reviewed and electronically signed by: MOISÉS PETERSON MD on Aug 01 2024 8:40PM EST [facility] Radiology Study observation (narrative) [facility] Chest PA and LateralOrder ed By: [facility] Provider on 08-01-2024 [facility] CNPNon 07-18-2024 CNPN Telephone (INTMWS) -------- AUSTINSAULO Blanton ([id number]) 1960 F NFR Date Time Provider Department 07/18/24 CHEYENNE GILBERT INTSTACY During your visit today, we recorded the following information about you: Iman Haines LPN 07/18/2024 10:21 AM Signed Patient calling, states that the new antibiotic is making her vomit now. Asking for a different antibiotic to be prescribed. States she does not feel like she can come in for an appointment with how she is feeling. Please advise. Cheyenne Gilbert APRN.[employer] TECHNICIAN 07/18/2024 12:23 PM Signed Would recommend she stop the doxycycline and try Bactrim instead, script sent. If symptoms continue then needs to come in for recheck. Charu Lopez LPN 07/18/2024 2:08 PM Signed PATIENT NOTIFIED OF SAME. States she did have 1 episode of vomiting today. Allergies As of Date: 07/18/2024 Noted Allergy Reaction BEE VENOM PROTEIN (HONEY BEE) 07/30/2023 16 - Unknown MORPHINE 04/03/2017 11 - Vomiting RELAFEN (NABUMETONE) 11/26/2008 6 - Diarrhea Comments: 2005 tried med VENOM-HONEY BEE 01/28/2023 16 - Unknown ZOLPIDEM 01/28/2023 14 - Other: See Comments Date Reviewed: 07/08/2024 Reviewed by: Charu Lopez LPN - Fully Assessed Reason for Visit: Medication Problem [65] Order(s):sulfamethoxazol e-trimethoprim (BACTRIM DS) 800-160 mg per tabletTake 1 tablet by mouth two times a day for 7 days.Disp: 14 tabletRfl: 0 Prescriptions as of 07/18/2024 - sulfamethoxazole-trimeth oprim (BACTRIM DS) 800-160 mg per tablet Take 1 tablet by mouth two times a day for 7 days. - doxycycline (VIBRA-TABS) 100 mg tablet Take 1 tablet by mouth two times a day for 7 days. - naratriptan (AMERGE) 2.5 mg tablet Take 1 tablet (2.5 mg) by mouth as needed. 2.5 mg at onset of headache, may repeat in 4 hours if needed - promethazine (PHENERGAN) 25 mg tablet Take 0.5-1 tablets by mouth every 6 hours as needed. - diclofenac, EC, (VOLTAREN) 50 mg EC tablet Take 1 tablet by mouth two times a day as needed. - fluticasone (FLONASE) 50 mcg/actuation nasal spray Use 2 Sprays in each nostril once daily. Rinse mouth after use. - cholecalciferol (VITAMIN D3) 1,000 unit tab tablet Take 1 tablet by mouth once daily. - loperamide (ANTI-DIARRHEAL) 2 mg cap(s) Take 1 capsule by mouth four times a day as needed for diarrhea. - dilTIAZem CD (CARTIA XT) 180 mg 24 hr capsule Take 1 capsule by mouth once daily. - topiramate (TOPAMAX) 100 mg tablet TAKE 2 TABLETS TWICE A DAY IN THE MORNING AND AT BEDTIME - pantoprazole DR (PROTONIX) 40 mg tablet Take 1 tablet by mouth two times a day before meals at 6 am and 4 pm. Take on empty stomach, 1/2 hr before meal. - cyclobenzaprine (FLEXERIL) 10 mg tablet Take 1 tablet by mouth at bedtime as needed for muscle spasm or pain. - cholestyramine-aspartame (CHOLESTYRAMINE LIGHT) 4 gram powder Take 4 g by mouth three times a day with meals. - ibuprofen (MOTRIN) 800 mg tablet Take 1 tablet by mouth every 8 hours as needed for pain. Take with food. Problem List As Of Date 07/18/2024 Noted Resolved Concussion with no loss of consciousness [S06.0* 07/09/2019 Sprain of neck [S13.9XXA] 07/09/2019 Sprain of thoracic region [S23.9XXA] 07/09/2019 Migraine variant [G43.809] Disturbance of skin sensation [R20.9] 07/09/2019 ESOPHAGEAL REFLUX [K21.9] Displacement of intervertebral disc of thoracol*11/30/2006 Bee sting allergy [T63.91XA] 04/28/2008 Sprain of lumbosacral (joint) (ligament) [S33.9*09/29/2008 07/09/2019 Painful respiration [R07.1] 10/19/2008 08/21/2013 Bruxism (teeth grinding) [F45.8] 08/16/2011 Lumbago [M54.50] 07/03/2012 07/09/2019 Cervicalgia [M54.2] 08/02/2012 DDD (degenerative disc disease), lumbar [M51.36*08/02/2012 07/09/2019 Lumbar spondylosis [M47.816] 08/02/2012 07/09/2019 Chronic back pain [M54.9, G89.29] 08/02/2012 Hypercholesteremia [E78.00] Bright red rectal bleeding [K62.5] 07/29/2015 07/29/2015 Nausea [R11.0] 07/29/2015 07/29/2015 Non-cardiac chest pain [R07.89] 04/03/2017 07/09/2019 Displacement of cervical intervertebral disc wi*05/06/2018 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 Encounter Status:Closed by CHARU LOPEZ on 07/18/24 [facility] C[facility]N Telephone (INTMWS) -------- SAULO GEIGER I ([id number]) 1960 F NFR Date Time Provider Department 07/16/24 CHEYENNE GILBERT INTMWS During your visit today, we recorded the following information about you: Marcie Judge LPN 07/16/2024 10:28 AM Signed Patient calling she has 2 days of Augmentin rx left. Her sinus issues are not any better, her eyes are watering and nose is running constantly, pouring clear secretions, she has headache and nauseated. Patient said she feels like warmed over. Patient asking if she needs to switch to another antibiotic? Patient uses [facility] for her pharmacy. Please advise Cheyenne Gilbert APRN.[employer] TECHNICIAN 07/16/2024 11:12 AM Signed Okay to switch to doxycycline, script sent. Jared Nj RN 07/16/2024 1:16 PM Signed Spoke with patient. Given message from provider's office. Patient verbalizes understanding. Jared Nj RN Allergies As of Date: 07/16/2024 Noted Allergy Reaction BEE VENOM PROTEIN (HONEY BEE) 07/30/2023 16 - Unknown MORPHINE 04/03/2017 11 - Vomiting RELAFEN (NABUMETONE) 11/26/2008 6 - Diarrhea Comments: 2005 tried med VENOM-HONEY BEE 01/28/2023 16 - Unknown ZOLPIDEM 01/28/2023 14 - Other: See Comments Date Reviewed: 07/08/2024 Reviewed by: Charu Lopez LPN - Fully Assessed Reason for Visit: Medication Question [3318] Order(s):doxycycline (VIBRA-TABS) 100 mg tabletTake 1 tablet by mouth two times a day for 7 days.Disp: 14 tabletRfl: 0 Prescriptions as of 07/16/2024 - doxycycline (VIBRA-TABS) 100 mg tablet Take 1 tablet by mouth two times a day for 7 days. - naratriptan (AMERGE) 2.5 mg tablet Take 1 tablet (2.5 mg) by mouth as needed. 2.5 mg at onset of headache, may repeat in 4 hours if needed - promethazine (PHENERGAN) 25 mg tablet Take 0.5-1 tablets by mouth every 6 hours as needed. - diclofenac, EC, (VOLTAREN) 50 mg EC tablet Take 1 tablet by mouth two times a day as needed. - fluticasone (FLONASE) 50 mcg/actuation nasal spray Use 2 Sprays in each nostril once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 tablets by mouth every 6 hours as needed. Problem List As Of Date 04/17/2024 Noted Resolved Concussion with no loss of consciousness [S06.0* 07/09/2019 Sprain of neck [S13.9XXA] 07/09/2019 Sprain of thoracic region [S23.9XXA] 07/09/2019 Migraine variant [G43.809] Disturbance of skin sensation [R20.9] 07/09/2019 ESOPHAGEAL REFLUX [K21.9] Displacement of intervertebral disc of thoracol*11/30/2006 Bee sting allergy [T63.91XA] 04/28/2008 Sprain of lumbosacral (joint) (ligament) [S33.9*09/29/2008 07/09/2019 Painful respiration [R07.1] 10/19/2008 08/21/2013 Bruxism (teeth grinding) [F45.8] 08/16/2011 Lumbago [M54.50] 07/03/2012 07/09/2019 Cervicalgia [M54.2] 08/02/2012 DDD (degenerative disc disease), lumbar [M51.36]08/02/2012 07/09/2019 Lumbar spondylosis [M47.816] 08/02/2012 07/09/2019 Chronic back pain [M54.9, G89.29] 08/02/2012 Hypercholesteremia [E78.00] Bright red rectal bleeding [K62.5] 07/29/2015 07/29/2015 Nausea [R11.0] 07/29/2015 07/29/2015 Non-cardiac chest pain [R07.89] 04/03/2017 07/09/2019 Displacement of cervical intervertebral disc wi*05/06/2018 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 Soft Crab Shedder: SUZANNE Transcribe Date/Time: Apr 10 2024 2:51P Dictated by : FANTA WAY MD This examination was interpreted and the report reviewed and electronically signed by: FANTA WAY MD on Apr 10 2024 3:09PM [facility] DIVISION OF RADIOLOGY * * *Final Report* * * DATE OF EXAM: Apr 10 2024 12:12PM [facility] 0295 - MRI BRAIN WO/W IVCON / PROCEDURE REASON: multiple diagnoses * * * * Physician Interpretation * * * * EXAMINATION: MRI BRAIN WO/W IVCON CLINICAL HISTORY: Intractable chronic migraine without aura and without status migrainosus Medication overuse headache Intractable chronic post-traumatic headache TECHNIQUE: Routine brain MRI protocol without and with contrast including diffusion images. MQ: MRBWOW_2 Contrast: 12 mL Dotarem IV COMPARISON: None. RESULT: Acute Change: There is no evidence of restricted diffusion to suggest an acute infarct. Hemorrhage: No evidence of prior parenchymal hemorrhage on the gradient echo images. Mass Lesion/ Mass Effect: No evidence of an intracranial mass or extra-axial fluid collection. No abnormal parenchymal or leptomeningeal enhancement is noted following contrast administration. No significant mass effect. Chronic Change: Scattered punctate foci of increased T2 and FLAIR signal are noted in the supratentorial white matter which is a nonspecific finding but may represent minimal chronic microvascular ischemic change. Parenchyma: No significant volume loss for age. The brain parenchyma is otherwise within normal limits of signal intensity and morphology. Ventricles: Normal caliber and morphology. Skull Base: Hypothalamic and pituitary region are grossly normal. Craniocervical junction is normal. No significant marrow replacement process. Vasculature: Filling defect most likely a prominent arachnoid granulation in the left distal transverse sinus. Major intracranial arterial structures, and dural venous sinuses show typical flow void, suggesting patency by spin echo criteria. Other: The visualized paranasal sinuses and mastoid air cells are clear. The orbits and extracranial soft tissues are unremarkable. DIVISION OF RADIOLOGY Provider, [facility] - 04/10/2024 * * *Final Report* * * DATE OF EXAM: Apr 10 2024 12:12PM [facility] 0295 - MRI BRAIN WO/W IVCON / PROCEDURE REASON: multiple diagnoses * * * * Physician Interpretation * * * * EXAMINATION: MRI BRAIN WO/W IVCON CLINICAL HISTORY: Intractable chronic migraine without aura and without status migrainosus Medication overuse headache Intractable chronic post-traumatic headache TECHNIQUE: Routine brain MRI protocol without and with contrast including diffusion images. MQ: MRBWOW_2 Contrast: 12 mL Dotarem IV COMPARISON: None. RESULT: Acute Change: There is no evidence of restricted diffusion to suggest an acute infarct. Hemorrhage: No evidence of prior parenchymal hemorrhage on the gradient echo images. Mass Lesion/ Mass Effect: No evidence of an intracranial mass or extra-axial fluid collection. No abnormal parenchymal or leptomeningeal enhancement is noted following contrast administration. No significant mass effect. Chronic Change: Scattered punctate foci of increased T2 and FLAIR signal are noted in the supratentorial white matter which is a nonspecific finding but may represent minimal chronic microvascular ischemic change. Parenchyma: No significant volume loss for age. The brain parenchyma is otherwise within normal limits of signal intensity and morphology. Ventricles: Normal caliber and morphology. Skull Base: Hypothalamic and pituitary region are grossly normal. Craniocervical junction is normal. No significant marrow replacement process. Vasculature: Filling defect most likely a prominent arachnoid granulation in the left distal transverse sinus. Major intracranial arterial structures, and dural venous sinuses show typical flow void, suggesting patency by spin echo criteria. Other: The visualized paranasal sinuses and mastoid air cells are clear. The orbits and extracranial soft tissues are unremarkable. IMPRESSION IMPRESSION: No evidence of intracranial acute process or mass. Soft Crab Shedder: PSCB Transcribe Date/Time: Apr 10 2024 2:51P Dictated by : FANTA WAY MD This examination was interpreted and the report reviewed and electronically signed by: FANTA WAY MD on Apr 10 2024 3:09PM [facility] Radiology Study observation (narrative) Ismael [facility] MR Brain WO and W contrast I VOrdered By: Ccf Provider on 04-10-2024 [facility] CNPNon 03-05-2024 CNPN Telephone (AGSPINE3) -------- SAULO GEIGER I ([id number]) 1960 F NFR Date Time Provider Department 03/05/24 KRZYSZTOF CHAN AGSPINE3 During your visit today, we recorded the following information about you: [place] 03/05/2024 10:55 AM Signed ----- Message from Tosin Palafox sent at 03/05/2024 10:45 AM EDT ----- Regarding: Spine AND Pain / OPEN / Procedure / Injection Spine AND Pain / OPEN / Procedure / Injection Patient: Saulo Geiger Date of : 1960 Primary Care Provider: Akin Elliott MD Patient has been identified by name and Date of (Y/N): y Patient: Saulo Geiger Date of : 1960 Provider for this encounter: Akin Elliott MD Reason for the call/escalation: Patient was referred to Dr. Chan, which she was scheduled with him, but she wanted to know if she could get an injection to help with her severe pain until she can be seen in April. She would like a call back to discuss this Was Patient Referred to [facility]/Seek Emergency Treatment (Y/N): n Did Patient Agree (Y/N): n/a Was An Attempt Made To Transfer The Patient To The Office (Y/N): n Were You Able To Reach Someone At The Office (Y/N): n/a If Yes - Patient Was Transferred To (Caregivers Name): n/a If No - Which [facility] Leadership Occupational Therapy Professor Did You Speak With Regarding This Patient: n/a Was an appointment scheduled (Y/N): n Reason patient was requesting visit (RFV/signs and symptoms/diagnosis) : injection Person calling if other than patient: self Return call to if other than patient: self Best contact number: [phone] Thank you, Tosin Palafox March 05, 2024 10:45 AM Rito Tonia 03/05/2024 11:58 AM Signed Called and spoke with pt. I let her know that she needs to be seen before they can order any injections, and there were no sooner appt available. Tonia Veras Allergies As of Date: 03/05/2024 Noted Allergy Reaction BEE VENOM PROTEIN (HONEY BEE) 07/30/2023 16 - Unknown MORPHINE 04/03/2017 11 - Vomiting RELAFEN (NABUMETONE) 11/26/2008 6 - Diarrhea Comments: 2005 tried med VENOM-HONEY BEE 01/28/2023 16 - Unknown ZOLPIDEM 01/28/2023 14 - Other: See Comments Date Reviewed: 03/04/2024 Reviewed by: Alida Blackwood LPN - Fully Assessed Reason for Visit: Returning Patient's Call [[id number]] Prescriptions as of 03/05/2024 - cyclobenzaprine (FLEXERIL) 10 mg tablet Take 1 tablet by mouth at bedtime as needed for muscle spasm or pain. - cholestyramine-aspartame (CHOLESTYRAMINE LIGHT) 4 gram powder Take 4 g by mouth three times a day with meals. - fluticasone (FLONASE) 50 mcg/actuation nasal spray Use 2 Sprays in each nostril once daily. Rinse mouth after use. - ibuprofen (MOTRIN) 800 mg tablet Take 1 tablet by mouth every 8 hours as needed for pain. Take with food. - predniSONE (DELTASONE) 5 mg tablet Take two tablets for one week then one tablet for one week. For back pain - promethazine (PHENERGAN) 25 mg tablet Take 0.5-1 tablets by mouth every 6 hours as needed. - dilTIAZem CD (CARTIA XT) 180 mg 24 hr capsule Take 1 capsule by mouth once daily. - naratriptan (AMERGE) 2.5 mg tablet Take 1 tablet by mouth as needed. 2.5 mg at onset of headache, may repeat in 4 hours if needed - topiramate (TOPAMAX) 100 mg tablet TAKE 2 TABLETS TWICE A DAY IN THE MORNING AND AT BEDTIME - pantoprazole DR (PROTONIX) 40 mg tablet Take 1 tablet by mouth twice daily before meals (0600/1600). Take on empty stomach, 1/2 hr before meal. Problem List As Of Date 03/05/2024 Noted Resolved Concussion with no loss of consciousness [S06.0* 07/09/2019 Sprain of neck [S13.9XXA] 07/09/2019 Sprain of thoracic region [S23.9XXA] 07/09/2019 Migraine variant [G43.809] Disturbance of skin sensation [R20.9] 07/09/2019 ESOPHAGEAL REFLUX [K21.9] Displacement of intervertebral disc of thoracol*11/30/2006 Bee sting allergy [T63.91XA] 04/28/2008 Sprain of lumbosacral (joint) (ligament) [S33.9*09/29/2008 07/09/2019 Painful respiration [R07.1] 10/19/2008 08/21/2013 Bruxism (teeth grinding) [F45.8] 08/16/2011 Lumbago [M54.50] 07/03/2012 07/09/2019 Cervicalgia [M54.2] 08/02/2012 DDD (degenerative disc disease), lumbar [M51.36]08/02/2012 07/09/2019 Lumbar spondylosis [M47.816] 08/02/2012 07/09/2019 Chronic back pain [M54.9, G89.29] 08/02/2012 Hypercholesteremia [E78.00] Bright red rectal bleeding [K62.5] 07/29/2015 07/29/2015 Nausea [R11.0] 07/29/2015 07/29/2015 Non-cardiac chest pain [R07.89] 04/03/2017 07/09/2019 Displacement of cervical intervertebral disc wi*05/06/2018 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 Soft Crab Shedder: PSCB Transcribe Date/Time: Aug 10 2023 2:43P Dictated by : NENA MORRIS MD This examination was interpreted and the report reviewed and electronically signed by: NENA MORRIS MD on Aug 10 2023 2:45PM [facility] DIVISION OF RADIOLOGY * * *Final Report* * * DATE OF EXAM: Aug 10 2023 2:23PM [facility] [id number] - XR CHEST 2V FRONTAL/LAT / PROCEDURE REASON: multiple diagnoses * * * * Physician Interpretation * * * * EXAMINATION: CHEST RADIOGRAPH (2 VIEW FRONTAL & LATERAL) CLINICAL HISTORY: Acute cough Shortness of breath MQ: XC2_6 EXAM DATE/TIME: 08/10/2023 2:23 PM COMPARISON: Chest x-ray 07/01/2019 RESULT: Lines, tubes, and devices: None. Lungs and pleura: No consolidation. No lung mass. No pleural effusion. No pneumothorax. Cardiomediastinal silhouette: Normal cardiomediastinal silhouette. Bones and soft tissues: Bilateral remote healed rib fractures. DIVISION OF RADIOLOGY Provider, [facility] - 08/10/2023 * * *Final Report* * * DATE OF EXAM: Aug 10 2023 2:23PM WOX [id number] - XR CHEST 2V FRONTAL/LAT / PROCEDURE REASON: multiple diagnoses * * * * Physician Interpretation * * * * EXAMINATION: CHEST RADIOGRAPH (2 VIEW FRONTAL & LATERAL) CLINICAL HISTORY: Acute cough Shortness of breath MQ: [id number] EXAM DATE/TIME: 08/10/2023 2:23 PM COMPARISON: Chest x-ray 07/01/2019 RESULT: Lines, tubes, and devices: None. Lungs and pleura: No consolidation. No lung mass. No pleural effusion. No pneumothorax. Cardiomediastinal silhouette: Normal cardiomediastinal silhouette. Bones and soft tissues: Bilateral remote healed rib fractures. IMPRESSION IMPRESSION: No acute radiographic abnormality. Soft Crab Shedder: SUZANNE Transcribe Date/Time: Aug 10 2023 2:43P Dictated by : NENA MORRIS MD This examination was interpreted and the report reviewed and electronically signed by: NENA MORRIS MD on Aug 10 2023 2:45PM EST [facility] Radiology Study observation (narrative) Ismael merino [facility] XR Chest PA and LateralOrder ed By: [facility]cf Provider on 08-10-2023 [facility] Basophil percentageOrdered B y: Heber Milton on 07-13-2023 Bilirubin [Mass/Vol] 0.30 mg/dL 0.20-1.00 [facility] Comment on above: For patients on eltr ombopag therapy, use of Dimension [place] TBIL is not recommended. Chloride [Moles/Vol] 112 mmol/L 98-107 [facility] Glucose [Mass/Vol] 103 mg/dL 74-106 [facility] Comment on above: Fasting Glucose resu lt from 100 to 125 mg/dL suggests IMPAIRED HOMEOSTASIS per A.D.A. criteria. Potassium [Moles/Vol] 3.8 mmol/L 3.5-5.1 [facility] Protein [Mass/Vol] 7.5 g/dL 6.4-8.2 [facility] Sodium [Moles/Vol] 143 mmol/L 136-145 [facility] WBC (Bld) [#/Vol] 5.9 10*3/uL 4.4-11.0 [facility] Blood erythrocytes count (nu mber/volume)Ordered By: Heber Milton on 07-13-2023 RBC (Bld) [#/Vol] 4.35 10*6/uL 4.2-5.4 [facility] Blood hemoglobin measurement (mass/volume)Ordered By: Heber Milton on 07-13-2023 Hemoglobin (Bld) [Mass/Vol] 14.1 g/dL 12.0-15.0 [facility] Blood platelet mean volumeOr dered By: Heber Milton on 07-13-2023 Platelet mean volume (Bld) [Entitic vol] 11.1 fL 6.2-12.0 [facility] Determination of erythrocyte mean corpuscular volume (MCV)Ordered By: Heber Milton on 07-13-2023 MCV (RBC) [Entitic vol] 103.9 fL 81-99 [facility] Erythrocyte sedimentation ra teOrdered By: Heber Milton on 07-13-2023 ESR (Bld) [Velocity] 6 mm/h 0-30 [facility] Hematocrit Auto (Bld) [Volum e fraction]Ordered By: Heber Milton on 07-13-2023 Hematocrit (Bld) [Volume fraction] 45.2 % 37-47 [facility] Laboratory - Chemistry and C hemistry - challengeOrdered By: Heber Milton on 07-13-2023 ALP [Catalytic activity/Vol] 91 U/L 45-117 [facility] ALT [Catalytic activity/Vol] 25 U/L 13-56 [facility] CO2 [Moles/Vol] 22.0 mmol/L 21.0-32.0 [facility] Globulin (S) [Mass/Vol] 3.4 g/dL 2.2-4.2 [facility] Urea nitrogen/Creatinine [Mass ratio] 12.1 mg/mg 10-20 [facility] Laboratory - Hematology and Cell countsOrdered By: Heber Milton on 07-13-2023 Erythrocyte distribution width (RBC) [Entitic vol] 49.5 fL 35.1-43.9 [facility] Erythrocyte distribution width (RBC) [Ratio] 12.8 % 11.6-14.6 [facility] MCH (RBC) [Entitic mass] 32.4 pg 27.0-32.0 [facility] MCHC Auto (RBC) [Mass/Vol]Or dered By: Heber Milton on 07-13-2023 MCHC (RBC) [Mass/Vol] 31.2 g/dL 32-36 [facility] No Panel InformationOrdered By: Heber Milton on 07-13-2023 Estimated GFR (MDRD) Amer 61 mL/min >60 [facility] Comment on above: GFR Calc Estimated GFR (MDRD) Non-Af Amer 51 mL/min >60 [facility] Comment on above: Non- GFR Calc Platelets bldOrdered By: Teodora Milton on 07-13-2023 Platelets (Bld) [#/Vol] 288 10*3/uL 150-450 [facility] Serum or plasma C reactive p rotein measurement (mass/volume)Ordered By: Heber Milton on 07-13-2023 CRP [Mass/Vol] mg/L 0.0-3.0 [facility] Comment on above: C-Reactive Protein ( CRP) provides useful information for thediagnosis, therapy and monitoring of inflammatory processesand associated diseases. For the evaluation of Relative Riskfor Cardiovascular Disease, a High Sensitivity CRP (HSCRP)should be ordered. Serum or plasma albumin tiarra urement (mass/volume)Ordered By: Heber Milton on 07-13-2023 Albumin [Mass/Vol] 4.1 g/dL 3.2-5.0 [facility] Serum or plasma albumin/glob ulin mass ratioOrdered By: Heber Milton on 07-13-2023 Albumin/Globulin [Mass ratio] 1.2 {ratio} 0.9-2.4 [facility] Serum or plasma calcium tiarra urement (mass/volume)Ordered By: Heber Milton on 07-13-2023 Calcium [Mass/Vol] 9.1 mg/dL 8.5-10.1 [facility] Serum or plasma creatinine m easurement (mass/volume)Ordered By: Heber Milton on 07-13-2023 Creatinine [Mass/Vol] 1.16 mg/dL 0.55-1.02 [facility] Comment on above: The validity of the calculated GFR & GFRAA in patients over 70 years has not been determined. Clinical correlation is essential. Serum or plasma urea nitroge n measurement (mass/volume)Ordered By: Heber Milton on 07-13-2023 Urea nitrogen [Mass/Vol] 14 mg/dL 7-18 [facility] Thin prep Papanicolaou smear with manual screeningOrdered By: Heber Milton on 07-13-2023 Thin prep Papanicolaou smear with manual screening 17 U/L 15-37 [facility] Thin prep Papanicolaou smear with manual screening 9 5-15 [facility] Whole blood hemoglobin A1c/t otal hemoglobin ratio (mass fraction)Ordered By: Heber Milton on 07-13-2023 HbA1c (Bld) [Mass fraction] 5.4 % 3.8-5.6 [facility] Comment on above: Normal < 5.7 % Predi abetic 5.7 - 6.4 % Diabetic >or= 6.5 % Please note range changes. ANES POSTPROC EVALon 023 ANES POSTPROC EVAL HNO ID: [id number] Author: Brandan Andrade APRN.MILL WORKER Service: ? Author Type: Nurse Qa Developer Type: Anesthesia Postprocedure Evaluation Filed: 06/28/2023 12:44 PM Note Text: POST ANESTHESIA EVALUATION NOTE : 1960 Procedure Summary Date: 06/28/23 Room / Location: SURGERY Anesthesia Start: 1205 Anesthesia Stop: Procedure: COLONOSCOPY DIAGNOSTIC Diagnosis: Diarrhea, unspecified type Diarrhea, unspecified type Scheduled Providers: Harriett Alejo MD; Brandan Andrade APRN.MILL WORKER Responsible Provider: Brandan Andrade APRN.CRNA Anesthesia Type: MAC ASA Status: 2 Anesthesia Type: MAC Last Vitals Vitals Value Taken Time BP 9278 06/28/23 1235 Temp 36.3 ?C (97.3 ?F) 06/28/23 1153 Pulse 68 06/28/23 1238 Resp 20 06/28/23 1238 SpO2 %100 06/28/23 1238 Post Anesthesia Patient Status Patient Evaluation: PACU. Anticipated Disposition: phase 2 then home. Neurological Status: aware and responsive. Pulmonary Status: breathing comfortably on room air Airway Control: returned to baseline unsupported. Cardiovascular Status: stable. Pain Management: clinically adequate Postoperative Hydration: acceptable. Intraoperative Events: no significant anesthesia events Post Operative Nausea/Vomiting Status: no significant post operative nausea or vomiting Recommendation: continue current plan of care. Anesthesia Observations No Documentation SIGNATURE: Brandan Andrade APRN.MILL WORKER PATIENT NAME: Saulo Geiger DATE: June 28, 2023 TIME: 12:39 PM CSN: [id number] Normal [facility] ANES PRE-OPon 06-28-2023 ANES PRE-OP HNO ID: [id number] Author: Brandan Andrade APRN.MILL WORKER Service: ? Author Type: Nurse Qa Developer Type: Anesthesia Preprocedure Evaluation Filed: 06/28/2023 11:46 AM Note Text: ANESTHESIOLOGY DAY OF SURGERY NOTE : 1960 Procedure Information Date/Time: 06/28/23 1215 Scheduled providers: Harriett Alejo MD; Brandan Andrade APRN.MILL WORKER Procedure: COLONOSCOPY DIAGNOSTIC Location: LD SURGERY Estimated body mass index is 21.95 kg/m? as calculated from the following: Height as of 06/18/23: 167.6 cm (5' 6). Weight as of 06/18/23: 61.7 kg (136 lb). Most recent hematocrit and potassium results: Hematocrit 44.7 03/16/2023 Potassium 3.9 05/28/2023 Relevant Problems CARDIO (+) Migraine variant GI (+) Esophageal reflux NEURO-PSYCH (+) Migraine variant I - PHYSICAL EVALUATION AIRWAY Patient intubated: No. Tracheostomy tube not present Mallampati: II. TM distance: >3 FB. Neck ROM: full ROM without neurological symptoms. Mouth opening: adequate. Short neck: no. Thick neck: no DENTAL Dental findings: teeth intact. Additional exam findings: no II - ANESTHESIA PLAN ASA Score: 2 Anesthetic Plan: MAC The patient is not a current smoker. NPO Status: adequate Beta Eliceo Administration of chronic beta eliceo medication not planned. Reasons for not administering beta eliceo perioperatively: other Monitoring Plan Monitoring plan: standard ASA. Post Procedure Analgesic Plan Postoperative analgesic plan: parenteral or oral opioids. Informed Consent Anesthetic risks, benefits, alternatives, personnel and consent discussed: yes. Patient / Responsible Green Party agrees to proceed: yes Patient / Surrogate agrees to blood products: Yes Potential Anesthesia issues that may suggest increased risk of complications or contraindication to planned procedure: none. No vitals data found for the desired time range. No current facility-administered medications on file as of 06/28/2023. Outpatient Medications as of 06/28/2023 Medication Sig - benzonatate (TESSALON PERLES) 100 mg capsule Take 1-2 capsules by mouth three times a day as needed for cough. - ALPRAZolam (XANAX) 0.5 mg tablet Take 1 tablet by mouth twice daily as needed. (Dr. Herrera) - levocetirizine (XYZAL) 5 mg tablet Take 1 tablet by mouth once daily. - ondansetron orally disintegrating (ZOFRAN ODT) 4 mg disintegrating tablet EVERY 8 HOURS NEEDED - dicyclomine (BENTYL) 10 mg capsule THREE TIMES A DAY - loperamide (ANTI-DIARRHEAL) 2 mg cap(s) Take 1 capsule by mouth four times daily as needed for diarrhea. (Patient taking differently: Take 2 mg by mouth two times a day.) - HYDROcodone-acetaminophe n (NORCO) 5-325 mg per tablet Take 1 tablet by mouth every 12 (twelve) hours. (Patient not taking: Reported on 06/18/2023) - dilTIAZem CD (CARTIA XT) 180 mg 24 hr capsule Take 1 capsule by mouth once daily. - naratriptan (AMERGE) 2.5 mg tablet Take 1 tablet by mouth as needed. 2.5 mg at onset of headache, may repeat in 4 hours if needed - rosuvastatin (CRESTOR) 5 mg tablet Take 1 tablet by mouth once daily. For Cholesterol (Patient not taking: Reported on 06/19/2023) - topiramate (TOPAMAX) 100 mg tablet TAKE 2 TABLETS TWICE A DAY IN THE MORNING AND AT BEDTIME - pantoprazole DR (PROTONIX) 40 mg tablet Take 1 tablet by mouth twice daily before meals (0600/1600). Take on empty stomach, 1/2 hr before meal. - promethazine (PHENERGAN) 25 mg tablet Take 0.5-1 tablets by mouth every 6 hours as needed. - cyclobenzaprine (FLEXERIL) 10 mg tablet Take 1 tablet by mouth twice daily as needed for muscle spasm or pain (may make drowsy, avoid driving and other activities until you know how it affects you). - diclofenac, EC, (VOLTAREN) 50 mg EC tablet Take 1 tablet by mouth twice daily as needed. - ondansetron (ZOFRAN) 4 mg tablet Take 1 tablet by mouth every 8 hours as needed for nausea/vomiting (if not controlled with phenergan). - ZINC ORAL Take by mouth. - omega-3 fatty acids (FISH OIL CONCENTRATE ORAL) Take by mouth. - cholecalciferol, vitamin D3, (VITAMIN D3 ORAL) Take 1 capsule by mouth once daily. - DULoxetine (CYMBALTA) 60 mg capsule Take 1 capsule by mouth twice daily. (Dr. Herrera) - MV with Clk-Qhzylevu-Bpcbyc (CENTRUM SILVER) 0.4-300-250 mg-mcg-mcg tab Take 1 tablet by mouth once daily. I have interviewed and examined the patient. I have reviewed the medical record and/or the pre-anesthesia evaluation, pertinent labs, and test results. This contains updated information obtained within 48 hours of Surgery/Procedure. SIGNATURE: Brandan Andrade APRN.CRNA PATIENT NAME: Saulo Geiger DATE: June 28, 2023 TIME: 11:45 AM CSN: [id number] [facility] BRIEF OP NOTon 06-28-2023 BRIEF OP NOT HNO ID: [id number] Author: Harriett Alejo MD Service: General Surgery Author Type: Physician Type: Brief Op Note Filed: 06/28/2023 12:40 PM Note Text: BRIEF OPERATIVE NOTE SURGERY DATE: 06/28/2023 Incision/Procedure Start Time: 12:10 cecal intubation time: 12:26 Incision Close/Procedure End Time: 12:37 Surgeon(s)/Proceduralist (s) and Ticket Sorter(s): lane Procedures: Colonoscopy with random biopsies Anesthesia: MAC Findings: hemorrhoids, diverticulosis Estimated Blood Loss: minimal Specimens: random mucosal biopsies throughout colon Complications: None Closure Technique: NA Preop Diagnosis: diarrhea Postop Diagnosis: diarrhea, hemorrhoids, diverticulosis SIGNATURE: Harriett Alejo MD PATIENT NAME: Saulo Geiger DATE: June 28, 2023 TIME: 12:39 PM Acct: [id number] [facility] HISTORY PHYSICALon HISTORY PHYSICAL HNO ID: [id number] Author: Harriett Alejo MD Service: General Surgery Author Type: Physician Type: HANDP Filed: 06/28/2023 11:01 AM Note Text: HISTORY AND PHYSICAL Saulo Geiger 1960 REFERRING PHYSICIAN: Carlee Tyler APRN.MANAGER WIND CHIEF COMPLAINT: Consult (Diarrhea, colonoscopy consult [facility] ER visit 05/25/23 CT scan done requested images to be pushed ) HPI: The patient is a 62 year old female referred for endoscopy. Saulo notes diarrhea. She has noted this since gallbladder surgery done on 02/26/2017. She notes several loose, watery bowel movements per day. She had been trialed on cholestyramine shortly after her presentation, but she states that she cannot tolerate it. She had previous colonoscopy by Dr. Field in 2019 with MAC anesthesia at [facility] for microscopic colitis which was negative. She notes no inflammatory bowel disease in the family, such as US or Crohn's. She denies noting blood in stools. She had a colonoscopy in 2014 which revealed pathology of a 30mm - tubular adenoma of the rectum She recently underwent evaluation in ED at [facility] 05/25/2023 for LLQ abdominal pain and diarrhea. CT scan revealed no acute surgical pathology. PAST MEDICAL HISTORY PAST MEDICAL HISTORY Diagnosis Date Bee sting allergy 04/28/2008 Concussion with no loss of consciousness Displacement of intervertebral disc, site unspecified, without myelopathy 11/30/2006 [facility] claim Disturbance of skin sensation Esophageal reflux Headaches migraines Hypercholesteremia Mental disorder anxiety Multiple rib fractures 2012 Fell down stairs to basement-- 5th and 6th rib fractures and left great toe fracture Snoring Sprain of lumbosacral (joint) (ligament) Sprain of neck [facility] claim Sprain of thoracic region [facility] claim Tubular adenoma of colon 07/29/2015 Dr. Caban Variants of migraine, not elsewhere classified, without mention of intractable migraine without mention of status migrainosus PAST SURGICAL HISTORY PAST SURGICAL HISTORY Procedure Laterality Date CHOLECYSTECTOMY 02/26/2017 Cholecystectomy; [facility] with Dr. Alejo COLONOSCOPY FLX DX W/COLLJ SPEC WHEN PFRMD 07/29/2015 Colonoscopy COLONOSCOPY SCREENING 2019 ESOPHAGOGASTRODUODENOSCO PY TRANSORAL DIAGNOSTIC 07/29/2015 EGD ESOPHAGOGASTRODUODENOSCO PY TRANSORAL DIAGNOSTIC 04/05/2017 EGD PAST SURGICAL HISTORY OF bilat feet - reconstruction CURRENT MEDICATIONS Current Outpatient Medications Medication Sig benzonatate (TESSALON PERLES) 100 mg capsule Take 1-2 capsules by mouth three times a day as needed for cough. levocetirizine (XYZAL) 5 mg tablet Take 1 tablet by mouth once daily. ondansetron orally disintegrating (ZOFRAN ODT) 4 mg disintegrating tablet EVERY 8 HOURS NEEDED loperamide (ANTI-DIARRHEAL) 2 mg cap(s) Take 1 capsule by mouth four times daily as needed for diarrhea. (Patient taking differently: Take 2 mg by mouth two times a day.) dilTIAZem CD (CARTIA XT) 180 mg 24 hr capsule Take 1 capsule by mouth once daily. naratriptan (AMERGE) 2.5 mg tablet Take 1 tablet by mouth as needed. 2.5 mg at onset of headache, may repeat in 4 hours if needed rosuvastatin (CRESTOR) 5 mg tablet Take 1 tablet by mouth once daily. For Cholesterol topiramate (TOPAMAX) 100 mg tablet TAKE 2 TABLETS TWICE A DAY IN THE MORNING AND AT BEDTIME pantoprazole DR (PROTONIX) 40 mg tablet Take 1 tablet by mouth twice daily before meals (0600/1600). Take on empty stomach, 1/2 hr before meal. promethazine (PHENERGAN) 25 mg tablet Take 0.5-1 tablets by mouth every 6 hours as needed. cyclobenzaprine (FLEXERIL) 10 mg tablet Take 1 tablet by mouth twice daily as needed for muscle spasm or pain (may make drowsy, avoid driving and other activities until you know how it affects you). diclofenac, EC, (VOLTAREN) 50 mg EC tablet Take 1 tablet by mouth twice daily as needed. ondansetron (ZOFRAN) 4 mg tablet Take 1 tablet by mouth every 8 hours as needed for nausea/vomiting (if not controlled with phenergan). ZINC ORAL Take by mouth. omega-3 fatty acids (FISH OIL CONCENTRATE ORAL) Take by mouth. cholecalciferol, vitamin D3, (VITAMIN D3 ORAL) Take 1 capsule by mouth once daily. DULoxetine (CYMBALTA) 60 mg capsule Take 1 capsule by mouth twice daily. (Dr. Herrera) ALPRAZolam (XANAX) 0.5 mg tablet Take 1 tablet by mouth twice daily as needed. (Dr. Herrera) MV with Byy-Oqqtkscm-Atvodj (CENTRUM SILVER) 0.4-300-250 mg-mcg-mcg tab Take 1 tablet by mouth once daily. sodium picosulfate-magnesium oxide-citric acid (CLENPIQ) 10 mg-3.5 gram- 12 gram/175 mL oral solution Refer to instructions given by your provider dicyclomine (BENTYL) 10 mg capsule THREE TIMES A DAY (Patient not taking: Reported on 06/18/2023) HYDROcodone-acetaminophe n (NORCO) 5-325 mg per tablet Take 1 tablet by mouth every 12 (twelve) hours. (Patient not taking: Reported on 06/18/2023) No current facility-administered medications for (more content not included)... Normal [facility] NURSING PROGon 06-28-2023 NURSING PROG HNO ID: [id number] Author: Safia Marsh, BERNARDO Service: Nursing Author Type: Registered Nurse Type: Nursing Progress Note Filed: 06/28/2023 12:03 PM Note Text: Pt ready for procedure. Call light within reach. Side rails up x 2. Pt denies questions or concerns. Normal [facility] OPERATIVE NOon 06-28-2023 OPERATIVE NO HNO ID: [id number] Author: Harriett Alejo MD Service: General Surgery Author Type: Physician Type: Operative Report Filed: 06/28/2023 6:23 PM Note Text: [facility] - Operative Report - SAULO Harrison I : 1960 AGE: 62. SEX: F PATIENT TYPE: O HOSP SVC: [facility] LOCATION: [facility] ATTENDING PHYSICIAN: Harriett Alejo MD CSN NUMBER: [id number] DATE OF SURGERY/PROCEDURE: 06/28/2023 INCISION/PROCEDURE START TIME: 12:10 PM INCISION CLOSE/PROCEDURE END TIME: 12:37 PM PREOPERATIVE DIAGNOSIS: Diarrhea. POSTOPERATIVE DIAGNOSIS: Diarrhea, hemorrhoids, and diverticulosis. SURGEON: Harriett Alejo MD FILTER MACHINE OPERATOR: No Additional Staff SURGERY/PROCEDURE: Colonoscopy with random mucosal biopsies. ANESTHESIA: MAC. LOCATION: [facility]. INDICATIONS: Saulo Geiger is a 62-year-old female, who presents with complaints of diarrhea. She therefore presents for evaluation with colonoscopy. She has been counseled of the risks of procedure including, but not limited to infection, bleeding, perforation, GI tract, inability to complete the procedure, injury to any internal organs, etc. The patient understands and agrees to proceed. The patient last had a colonoscopy in 2019. DESCRIPTION OF PROCEDURE: After informed consent was given, the patient was brought to the endoscopy suite. Appropriate time-out protocol was followed. The patient was then placed in left lateral decubitus position. The patient was given IV anesthesia by the anesthesia provider. The colonoscope was lubricated, carefully inserted into the patient's anus and advanced into the rectum. It was then advanced into the sigmoid colon, then advanced into the left colon, past splenic flexure into transverse colon, past hepatic flexure down the right colon to the cecum. The cecum was identified by transillumination, confluence of teniae coli, appendiceal orifice, and external palpation. At this level, the colonoscope was slowly retracted back into the entire colonic mucosal surface so that the entire colonic mucosal surface was examined. The colon cleansing preparation was adequate. Because of the patient's complaint, mucosal biopsies were taken throughout the entire colon using cold grasper forceps. There was no evidence of any masses, polyps, or lesions in the right colon. There was no evidence of any masses, polyps, or lesions in the transverse colon. There was no evidence of any masses, polyps, or lesions in the left colon. There was no evidence of any masses, polyps in the sigmoid colon. Few scattered small diverticula were noted in the sigmoid colon. There was no evidence of any masses or polyps in the rectum. Retroflexed view in the rectum revealed hemorrhoidal changes, but no active bleeding or inflammation. The endoscope was removed intact. Digital examination of the anal canal revealed no palpable masses. The patient tolerated the procedure well and was brought to recovery room stable in stable condition. ESTIMATED BLOOD LOSS: Minimal. COMPLICATIONS: None. SPECIMENS: Random mucosal biopsies of entire colon. RECOMMENDATIONS: screening colonoscopy in 10 years Harriett Alejo MD LW:[id number] /[id number] Normal [facility] SURGICAL PATHOLOGYon 023 CASE REPORT Normal [facility] Comment on above: Order Comment: Speci men Type: TISSUE SPECIMENOrdering Facility: [facility] Address: [address] [place] [address] Result Comment: Surg [facility] Pathology Report Case: [id number] Authorizing Provider: Harriett Alejo MD Collected: 06/28/2023 12:40 PM Ordering Location: SURGERY Received: 06/29/2023 01:07 PM Pathologist: Chel Cook MD Specimen: COLON BIOPSY, random Performed By: #### S ####[facility] LABORATORYCLIA [id number] [place] [address] [place] FINAL DIAGNOSIS Normal [facility] Comment on above: Order Comment: Speci men Type: TISSUE SPECIMENOrdering Facility: [facility] Address: [address] [place] [address] Result Comment: A. R andom colon, biopsy: -- Colonic mucosa with no significant histopathologic abnormalities. Performed By: #### S ####[facility] LABORATORYCLIA [id number] [address] FINAL PERFORMING LAB Normal [facility] Comment on above: Order Comment: Speci men Type: TISSUE SPECIMENOrdering Facility: [facility] Address: [address] [place] [address] Result Comment: Diag nostic interpretation performed at [facility], [address] [place] [address] CLIA# [id number] Lockstitch Coat Joiner: Juwan Gusman M.D. Performed By: #### S ####[facility] LABORATORYCLIA [id number] [address] GROSS DESCRIPTION A. COLON BIOPSY Normal [facility] Comment on above: Order Comment: Speci men Type: TISSUE SPECIMENOrdering Facility: [facility] Address: [address] [place] [address] Result Comment: Rece ived in formalin labeled random colon biopsy are multiple irregular osborne soft tissue fragments aggregating to 0.7 x 0.4 x 0.1 cm. The specimen is submitted entirely in A1. Gross examination performed at [facility], [address] [place] [address] CLIA#[id number] OLS June 29, 2023 1:32 PM Performed By: #### S ####[facility] LABORATORYCLIA [id number] [address] NURSING PROGon 06-19-2023 NURSING PROG HNO ID: [id number] Author: Safia Marsh RN Service: ? Author Type: Registered Nurse Type: Nursing Progress Note Filed: 06/19/2023 4:04 PM Note Text: Pre-Procedure Checklist Saulo Geiger [phone] (home) 1960 62 year old There is no height or weight on file to calculate BMI. Allergies: Bee Stings [Other] Morphine Vomiting Relafen [Nabumetone] Diarrhea Comment:2004 tried med Venom-Honey Bee Unknown Zolpidem Other: See Comments Procedure: colonoscopy Date of Procedure: 06/28/2023 Smoke: No Alcohol: No Street Drugs: No Diabetic: No Insulin: No Problems with Anesthesia (Self or Family?) No Turbinated Bone Grinder: none Saw pipe turner in the last 6 months? No Recent EKG/Cardiac Testing: No Chest pain in the last 6 months (<6 months cardiac clearance needed): No History of: Heart Attack/Stroke/Blood Clot?: none Shortness of Breath: No Asthma: No Inhalers: No Any Outstanding Consults?: Yes If yes, list: Neurologist August 13 for chronic headaches.Pt scheduled herself for a second opinion for migraine treatment. Additional Notes: Normal [facility] Absolute lymphocyte countOrd ered By: Blaise Diaz on 05-25-2023 Lymphocytes Auto (Unsp spec) [#/Vol] 1.01 10*3/uL 0.83-4.51 [facility] Basophil percentageOrdered B y: Blaise Diaz on 05-25-2023 Basophils/100 WBC (Bld) 0.6 % 0-1 [facility] Bilirubin [Mass/Vol] 0.20 mg/dL 0.20-1.00 [facility] Comment on above: For patients on eltr ombopag therapy, use of Dimension [place] TBIL is not recommended. Chloride [Moles/Vol] 115 mmol/L 98-107 [facility] Eosinophils/100 WBC (Bld) 1.5 % 0-5 [facility] Glucose [Mass/Vol] 145 mg/dL 74-106 [facility] Comment on above: Fasting Glucose resu lt greater than or equal to 126 mg/dL suggests DIABETES MELLITUS per A.D.A. criteria. Neutrophils (Bld) [#/Vol] 3.7 10*3/uL 2.0-7.7 [facility] Neutrophils/100 WBC (Bld) 70.1 % 47-70 [facility] Potassium [Moles/Vol] 3.3 mmol/L 3.5-5.1 [facility] Protein [Mass/Vol] 7.0 g/dL 6.4-8.2 [facility] Sodium [Moles/Vol] 141 mmol/L 136-145 [facility] WBC (Bld) [#/Vol] 5.3 10*3/uL 4.4-11.0 [facility] Basophil percentage 5-10 SEEN /hpf 0-5 [facility] Bilirubin Test strip Ql (U)O rdered By: Blaise Diaz on 05-25-2023 Bilirubin Ql (U) Negative Negative [facility] Blood erythrocytes count (nu mber/volume)Ordered By: Blaise Diaz on 05-25-2023 RBC (Bld) [#/Vol] 4.32 10*6/uL 4.2-5.4 [facility] Blood hemoglobin measurement (mass/volume)Ordered By: Blaise Diaz on 05-25-2023 Hemoglobin (Bld) [Mass/Vol] 14.1 g/dL 12.0-15.0 [facility] Blood lymphocytes/100 leukoc ytesOrdered By: Blaise Diaz on 05-25-2023 Lymphocytes/100 WBC (Bld) 19.2 % 19-41 [facility] Blood monocytes/100 leukocyt esOrdered By: Blaise Diaz on 05-25-2023 Monocytes/100 WBC (Bld) 8.4 % 0-10 [facility] Blood platelet mean volumeOr dered By: Blaise Diaz on 05-25-2023 Platelet mean volume (Bld) [Entitic vol] 9.7 fL 6.2-12.0 [facility] Determination of erythrocyte mean corpuscular volume (MCV)Ordered By: Blaise Diaz on 05-25-2023 MCV (RBC) [Entitic vol] 101.2 fL 81-99 [facility] Hematocrit Auto (Bld) [Volum e fraction]Ordered By: Blaise Diaz on 05-25-2023 Hematocrit (Bld) [Volume fraction] 43.7 % 37-47 [facility] Ketones Test strip Ql (U)Ord ered By: Blaise Diaz on 05-25-2023 Ketones Ql (U) 5 mg/dl Negative [facility] Laboratory - Chemistry and C hemistry - challengeOrdered By: Blaise Diaz on 05-25-2023 ALP [Catalytic activity/Vol] 115 U/L 45-117 [facility] ALT [Catalytic activity/Vol] 55 U/L 13-56 [facility] CO2 [Moles/Vol] 20.0 mmol/L 21.0-32.0 [facility] Globulin (S) [Mass/Vol] 3.2 g/dL 2.2-4.2 [facility] Lipase [Catalytic activity/Vol] 196 U/L 13-75 [facility] Comment on above: Please note:LIPASE r evised reference range effective 22. New Lipase methodology. Expected to produce lower values than the previous assay method. NEW Reference Range: 13 - 75 U/L Urea nitrogen/Creatinine [Mass ratio] 15.9 mg/mg 10-20 [facility] Laboratory - Hematology and Cell countsOrdered By: Blaise Diaz on 05-25-2023 Erythrocyte distribution width (RBC) [Entitic vol] 46.6 fL 35.1-43.9 [facility] Erythrocyte distribution width (RBC) [Ratio] 12.4 % 11.6-14.6 [facility] Immature granulocytes/100 WBC (Bld) 0.200 % 0.0-0.9 [facility] Comment on above: IG% - Immature Granu locytes (promyelocytes, myelocytes and metamyelocytes) > 1% indicates that a LEFT SHIFT is Present. MCH (RBC) [Entitic mass] 32.6 pg 27.0-32.0 [facility] Nucleated RBC/100 WBC (Bld) [Ratio] 0 % 0-5 [facility] MCHC Auto (RBC) [Mass/Vol]Or dered By: Blaise Diaz on 05-25-2023 MCHC (RBC) [Mass/Vol] 32.3 g/dL 32-36 [facility] Mucus LM Ql (Urine sed)Order ed By: Blaise Diaz on 05-25-2023 Mucus Ql (Urine sed) 0 SEEN /hpf [facility] Nitrite Test strip Ql (U)Ord ered By: Blaise Diaz on 05-25-2023 Nitrite Ql (U) Negative Negative [facility] No Panel InformationOrdered By: Blaise Diaz on 05-25-2023 Estimated Creatinine Clearance Calc 42.43 ml/min [facility] Estimated GFR (MDRD) Amer 53 mL/min >60 [facility] Comment on above: GFR Calc Estimated GFR (MDRD) Non-Af Amer 44 mL/min >60 [facility] Comment on above: Non- GFR Calc Platelets bldOrdered By: Sha iDaz on 05-25-2023 Platelets (Bld) [#/Vol] 239 10*3/uL 150-450 [facility] Protein Test strip Ql (U)Ord ered By: Blaise Diaz on 05-25-2023 Protein Ql (U) 30 mg/dl Negative [facility] Serum or plasma albumin tiarra urement (mass/volume)Ordered By: Blaise Diaz on 05-25-2023 Albumin [Mass/Vol] 3.8 g/dL 3.2-5.0 [facility] Serum or plasma albumin/glob ulin mass ratioOrdered By: Blaise Diaz on 05-25-2023 Albumin/Globulin [Mass ratio] 1.2 {ratio} 0.9-2.4 [facility] Serum or plasma calcium tiarra urement (mass/volume)Ordered By: Blaise Diaz on 05-25-2023 Calcium [Mass/Vol] 8.9 mg/dL 8.5-10.1 [facility] Serum or plasma creatinine m easurement (mass/volume)Ordered By: Blaise Diaz on 05-25-2023 Creatinine [Mass/Vol] 1.32 mg/dL 0.55-1.02 [facility] Comment on above: The validity of the calculated GFR & GFRAA in patients over 70 years has not been determined. Clinical correlation is essential. Serum or plasma urea nitroge n measurement (mass/volume)Ordered By: Blaise Diaz on 05-25-2023 Urea nitrogen [Mass/Vol] 21 mg/dL 7-18 [facility] Squamous epithelial cells de tection in urine sediment by light microscopyOrdered By: Blaise Diaz on 05-25-2023 Epithelial cells.squamous LM Ql (Urine sed) 0 SEEN /hpf 5-10 [facility] Thin prep Papanicolaou smear with manual screeningOrdered By: Blaise Diaz on 05-25-2023 Thin prep Papanicolaou smear with manual screening 12 U/L 15-37 [facility] Thin prep Papanicolaou smear with manual screening 6 5-15 [facility] Urine blood detectionOrdered By: Blaise Diaz on 05-25-2023 RBC Ql (U) Negative Negative [facility] RBC Ql (U) 0 SEEN /hpf 0-5 [facility] Urine clarityOrdered By: Sha Diaz on 05-25-2023 Clarity (U) Clear Clear [facility] Urine color determinationOrd ered By: Blaise Diaz on 05-25-2023 Color (U) Yellow Yellow [facility] Urine glucose detectionOrder ed By: Blaise Diaz on 05-25-2023 Glucose Ql (U) Normal mg/dl Normal [facility] Urine leukocyte esterase det ection by dipstickOrdered By: Blaise Diaz on 05-25-2023 Leukocyte esterase Test strip Ql (U) 500 /ul Negative [facility] Urine pHOrdered By: Blaise molina on 05-25-2023 pH (U) 6.0 [pH] 5.0 - 8.0 [facility] Urine sediment bacteria coun t by microscopy (number/high power field)Ordered By: Blaise Diaz on 05-25-2023 Bacteria LM.HPF (Urine sed) [#/Area] RARE /hpf None Seen [facility] Urine specific gravity measu rementOrdered By: Blaise Diaz on 05-25-2023 Specific gravity (U) [Rel density] 1.010 1.002-1.030 [facility] Urobilinogen Auto test strip Ql (U)Ordered By: Blaise Diaz on 05-25-2023 Urobilinogen Ql (U) Normal mg/dl Normal [facility] Laboratory - Drug toxicology Ordered By: Dani Zhang on 04-04-2023 Amphetamines Ql (U) Negative <1000 ng/mL [facility] Benzodiazepines Ql (U) Negative < 200 ng/mL [facility] Cannabinoids Screen Ql (U) Negative < 50 ng/mL [facility] Cocaine Ql (U) Negative < 300 ng/mL [facility] Opiates Ql (U) Negative < 300 ng/mL [facility] No Panel InformationOrdered By: Dnai Zhang on 04-04-2023 MDMA (Ecstasy) Screen Negative < 500 ng/mL [facility] Miscellaneous Test See comment [facility] Comment on above: [id number] 6+OXYCODONE-B UND (ng/mL) DRUG RESULT SCREEN CUTOFF____ Amphetamines,Urine Negative ng/mL 1000 Amphetamine test includes Amphetamine and Methamphetamine.Barbiturates Negative ng/mL 200Benzodiazepines Negative ng/mL 200Cannabinoid Negative ng/mL 20Cocaine (Metab) Negative ng/mL 300Opiates Negative ng/mL 300 Opiates test includes Codeine, Morphine, Hydromorphone, Hydrocodone. Oxycodone/Oxymorphone,Urine Negative ng/mL 300 Test includes Oxydodone and Oxymorphone. TESTING PERFORMED AT [facility]. ORIGINAL REPORT ON FILE IN LAB CONTAINS ADDITIONAL TEST SITE INFORMATION. Urine Barbiturates Screen Negative < 200 ng/mL [facility] Urine Drug Screen Comment [facility] Comment on above: CONFIRMATORY TESTING FOR ALL POSITIVE URINE DRUG SCREENRESULTS WILL ONLY BE SENT OUT UPON PHYSICIAN ORDER. VISTA Urine Drug Screen methods provide only preliminaryanalytical test results. A more specific alternate chemicalmethod must be used in order to obtain a confirmedanalytical result. Gas chromatography/mass spectrometery(GC/MS) is the preferred confirmatory method. Clinicalconsideration and professional judgement should be appliedto any drug of abuse test result, particularly whenpreliminary positive results are used. URINE TCA TESTING MUST BE ORDERED SEPARATELY. USE TESTMNEMONIC: [facility] Urine Methadone Screen Negative < 300 ng/mL [facility] Urine phencyclidine (PCP) de tectionOrdered By: Dani Zhang on 04-04-2023 Phencyclidine Ql (U) Negative < 25 ng/mL [facility] Absolute lymphocyte countOrd ered By: Branadn Prieto on 01-28-2023 Lymphocytes Auto (Unsp spec) [#/Vol] 1.28 10*3/uL 0.83-4.51 [facility] Basophil percentageOrdered B y: Brandan Prieto on 01-28-2023 Basophils/100 WBC (Bld) 0.5 % 0-1 [facility] Chloride [Moles/Vol] 117 mmol/L 98-107 [facility] Eosinophils/100 WBC (Bld) 0.8 % 0-5 [facility] Glucose [Mass/Vol] 109 mg/dL 74-106 [facility] Comment on above: Fasting Glucose resu lt from 100 to 125 mg/dL suggests IMPAIRED HOMEOSTASIS per A.D.A. criteria. Neutrophils (Bld) [#/Vol] 4.1 10*3/uL 2.0-7.7 [facility] Neutrophils/100 WBC (Bld) 69.0 % 47-70 [facility] Potassium [Moles/Vol] 3.8 mmol/L 3.5-5.1 [facility] Sodium [Moles/Vol] 146 mmol/L 136-145 [facility] WBC (Bld) [#/Vol] 5.9 10*3/uL 4.4-11.0 [facility] Blood erythrocytes count (nu mber/volume)Ordered By: Brandan Prieto on 01-28-2023 RBC (Bld) [#/Vol] 4.43 10*6/uL 4.2-5.4 [facility] Blood hemoglobin measurement (mass/volume)Ordered By: Brandan Prieto on 01-28-2023 Hemoglobin (Bld) [Mass/Vol] 14.6 g/dL 12.0-15.0 [facility] Blood lymphocytes/100 leukoc ytesOrdered By: Brandan Prieto on 01-28-2023 Lymphocytes/100 WBC (Bld) 21.7 % 19-41 [facility] Blood monocytes/100 leukocyt esOrdered By: Brandan Prieto on 01-28-2023 Monocytes/100 WBC (Bld) 7.8 % 0-10 [facility] Blood platelet mean volumeOr dered By: Brandan Prieto on 01-28-2023 Platelet mean volume (Bld) [Entitic vol] 10.0 fL 6.2-12.0 [facility] Determination of erythrocyte mean corpuscular volume (MCV)Ordered By: Brandan Prieto on 01-28-2023 MCV (RBC) [Entitic vol] 100.9 fL 81-99 [facility] Hematocrit Auto (Bld) [Volum e fraction]Ordered By: Brandan Prieto on 01-28-2023 Hematocrit (Bld) [Volume fraction] 44.7 % 37-47 [facility] Laboratory - Chemistry and C hemistry - challengeOrdered By: Brandan Prieto on 01-28-2023 CO2 [Moles/Vol] 21.0 mmol/L 21.0-32.0 [facility] Urea nitrogen/Creatinine [Mass ratio] 14.6 mg/mg 10-20 [facility] Laboratory - Hematology and Cell countsOrdered By: Brandan Prieto on 01-28-2023 Erythrocyte distribution width (RBC) [Entitic vol] 46.5 fL 35.1-43.9 [facility] Erythrocyte distribution width (RBC) [Ratio] 12.3 % 11.6-14.6 [facility] Immature granulocytes/100 WBC (Bld) 0.200 % 0.0-0.9 [facility] Comment on above: IG% - Immature Granu locytes (promyelocytes, myelocytes and metamyelocytes) > 1% indicates that a LEFT SHIFT is Present. MCH (RBC) [Entitic mass] 33.0 pg 27.0-32.0 [facility] Nucleated RBC/100 WBC (Bld) [Ratio] 0 % 0-5 [facility] MCHC Auto (RBC) [Mass/Vol]Or dered By: Brandan Prieto on 01-28-2023 MCHC (RBC) [Mass/Vol] 32.7 g/dL 32-36 [facility] No Panel InformationOrdered By: Brandan Prieto on 01-28-2023 Troponin I High Sensitivity 15 pg/mL 3.0-54.0 [facility] Comment on above: Please Note: New Vanessa t Units and Gender Specific Reference Ranges. For more information see Policy Stat Procedure [place] High Sensitivity Troponin (TNIH) and attachments. Estimated Creatinine Clearance Calc 45.53 ml/min [facility] Estimated GFR (MDRD) Amer 57 mL/min >60 [facility] Comment on above: GFR Calc Estimated GFR (MDRD) Non-Af Amer 47 mL/min >60 [facility] Comment on above: Non- GFR Calc Platelets bldOrdered By: Ingrid Prieto on 01-28-2023 Platelets (Bld) [#/Vol] 238 10*3/uL 150-450 [facility] Serum or plasma calcium tiarra urement (mass/volume)Ordered By: Brandan Prieto on 01-28-2023 Calcium [Mass/Vol] 9.2 mg/dL 8.5-10.1 [facility] Serum or plasma creatinine m easurement (mass/volume)Ordered By: Brandan Prieto on 01-28-2023 Creatinine [Mass/Vol] 1.23 mg/dL 0.55-1.02 [facility] Comment on above: The validity of the calculated GFR & GFRAA in patients over 70 years has not been determined. Clinical correlation is essential. Serum or plasma urea nitroge n measurement (mass/volume)Ordered By: Brandan Prieto on 01-28-2023 Urea nitrogen [Mass/Vol] 18 mg/dL 7-18 [facility] Thin prep Papanicolaou smear with manual screeningOrdered By: Brandan Prieto on 01-28-2023 Thin prep Papanicolaou smear with manual screening 8 5-15 [facility] XR Thoracic spine AP and Lat eral and Swimmerson 03-25-2022 IMPRESSION: Unremark able thoracic spine. Soft Crab Shedder: SUZANNE Transcribe Date/Time: Mar 25 2022 1:56P Dictated by : NATHEN DUNN MD This examination was interpreted and the report reviewed and electronically signed by: NATHEN DUNN MD on Mar 25 2022 1:57PM EST ZZZ_DO_NOT_ USE_DIVISIO N OF RADIOLOGY * * *Final Report* * * DATE OF EXAM: Mar 24 2022 12:21PM WOX [id number] - XR THORACIC 3V AP/LAT/SWIMMERS / PROCEDURE REASON: multiple diagnoses * * * * Physician Interpretation * * * * PROCEDURE: Thoracic spine INDICATION: Other chronic back pain Other chronic back pain Cervicalgia 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.was in injured at work in 2003, pain since then from lower thoracic and all of the lumbar area. Earrings too small to take out and did want to remove them per pat. TECHNIQUE: XR THORACIC 3V AP/LAT/SWIMMERS COMPARISON: None FINDINGS: There is normal alignment without fracture or subluxation. Disc spaces are relatively well-maintained. No pedicle erosion or paraspinal abnormality is evident. Remote, healed right rib fractures. ZZZ_DO_NOT_ USE_DIVISIO N OF RADIOLOGY Provider, [facility] - 03/25/2022 * * *Final Report* * * DATE OF EXAM: Mar 24 2022 12:21PM WOX [id number] - XR THORACIC 3V AP/LAT/SWIMMERS / PROCEDURE REASON: multiple diagnoses * * * * Physician Interpretation * * * * PROCEDURE: Thoracic spine INDICATION: Other chronic back pain Other chronic back pain Cervicalgia 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.was in injured at work in 2003, pain since then from lower thoracic and all of the lumbar area. Earrings too small to take out and did want to remove them per pat. TECHNIQUE: XR THORACIC 3V AP/LAT/SWIMMERS COMPARISON: None FINDINGS: There is normal alignment without fracture or subluxation. Disc spaces are relatively well-maintained. No pedicle erosion or paraspinal abnormality is evident. Remote, healed right rib fractures. IMPRESSION IMPRESSION: Unremarkable thoracic spine. Soft Crab Shedder: [facility] Transcribe Date/Time: Mar 25 2022 1:56P Dictated by : NATHEN DUNN MD This examination was interpreted and the report reviewed and electronically signed by: NATHEN DUNN MD on Mar 25 2022 1:57PM EST [facility] No Panel Informationon 03-24 Radiology Study observation (narrative) Ismael [facility] XR Cervical spine AP and Lat eralon 03-24-2022 IMPRESSION: Osteopen ia and degenerative changes as detailed in report. No acute process. Soft Crab Shedder: [facility] Transcribe Date/Time: Mar 24 2022 2:04P Dictated by : MARCIE LOCK MD This examination was interpreted and the report reviewed and electronically signed by: MARCIE LOKC MD on Mar 24 2022 2:06PM EST DREW_DO_NOT_ USE_DIVISIO N OF RADIOLOGY * * *Final Report* * * DATE OF EXAM: Mar 24 2022 12:21PM WOX [id number] - XR CERVICAL 2V AP/LAT / PROCEDURE REASON: multiple diagnoses * * * * Physician Interpretation * * * * EXAMINATION: XR CERVICAL 2V AP/LAT HISTORY: Remote injury. Chronic neck pain. Cervicalgia. TECHNIQUE: XR CERVICAL 2V AP/LAT Laterality: NOT APPLICABLE Number of different views (projections): 2 M: XB_1 COMPARISON: There are no prior relevant plain film cervical spine examinations available for comparison within the [facility]. RESULT: 2 views of the cervical spine demonstrate osteopenia and multilevel degenerative change with vertebral body osteophytosis and disc space narrowing, greatest at C5-6 where there is mild reversal the normal cervical lordosis.. There are no vertebral body compression deformities and alignment is well maintained. The atlantoaxial interval and craniocervical junction are intact. There is no prevertebral soft tissue abnormality. ZZZ_DO_NOT_ USE_DIVISIO N OF RADIOLOGY Provider, [facility] - 03/24/2022 * * *Final Report* * * DATE OF EXAM: Mar 24 2022 12:21PM WOX [id number] - XR CERVICAL 2V AP/LAT / PROCEDURE REASON: multiple diagnoses * * * * Physician Interpretation * * * * EXAMINATION: XR CERVICAL 2V AP/LAT HISTORY: Remote injury. Chronic neck pain. Cervicalgia. TECHNIQUE: XR CERVICAL 2V AP/LAT Laterality: NOT APPLICABLE Number of different views (projections): 2 M: XB_1 COMPARISON: There are no prior relevant plain film cervical spine examinations available for comparison within the [facility]. RESULT: 2 views of the cervical spine demonstrate osteopenia and multilevel degenerative change with vertebral body osteophytosis and disc space narrowing, greatest at C5-6 where there is mild reversal the normal cervical lordosis.. There are no vertebral body compression deformities and alignment is well maintained. The atlantoaxial interval and craniocervical junction are intact. There is no prevertebral soft tissue abnormality. IMPRESSION IMPRESSION: Osteopenia and degenerative changes as detailed in report. No acute process. Soft Crab Shedder: SUZANNE Transcribe Date/Time: Mar 24 2022 2:04P Dictated by : MARCIE LOCK MD This examination was interpreted and the report reviewed and electronically signed by: MARCIE LOCK MD on Mar 24 2022 2:06PM EST [facility] XR Lumbar spine 3 Viewson IMPRESSION: Osteopenia, scoliotic curvature and degenerative changes as detailed in report. Soft Crab Shedder: [facility] Transcribe Date/Time: Mar 24 2022 2:00P Dictated by : MARCIE LOCK MD This examination was interpreted and the report reviewed and electronically signed by: AMRCIE LOCK MD on Mar 24 2022 2:03PM EST ZZZ_DO_NOT_ USE_DIVISIO N OF RADIOLOGY * * *Final Report* * * DATE OF EXAM: Mar 24 2022 12:21PM WOX [id number] - XR LUMBAR 3V AP/LAT/L5-S1 / PROCEDURE REASON: multiple diagnoses * * * * Physician Interpretation * * * * EXAMINATION: XR LUMBAR 3V AP/LAT/L5-S1 HISTORY: Remote injury. Chronic low back pain. 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. TECHNIQUE: XR LUMBAR 3V AP/LAT/L5-S1 Laterality: NOT APPLICABLE Number of different views (projections): 3 M: XB_1 COMPARISON: There are no prior relevant lumbar spine plain film examinations available for comparison within the [facility]. Comparison is made to MRI of the lumbar spine from and June 2012 RESULT: Counting reference: Lumbosacral junction. For the purposes of this report, L5-S1 is considered the last lumbar-type disc space and L4-5 is considered the level of the iliac crest. 3 Views of the lumbosacral spine with AP, lateral and cone-down radiographs demonstrate osteopenia, scoliotic fracture and multilevel degenerative change with vertebral body osteophytosis. There is mild intervertebral disc space narrowing at all lumbar levels. Hypertrophic facet change noted at the lower 2 levels. Subtle 2-3 mm retrolisthesis of L2 on L3 and L3 on L4. Mild loss of the normal thoracolumbar lordosis without associated compression deformity is stable dating back to 2011. There are no acute compression fractures and alignment is otherwise well maintained. The soft tissues are unremarkable. ZZZ_DO_NOT_ USE_DIVISIO N OF RADIOLOGY Provider, [facility] - 03/24/2022 * * *Final Report* * * DATE OF EXAM: Mar 24 2022 12:21PM WOX [id number] - XR LUMBAR 3V AP/LAT/L5-S1 / PROCEDURE REASON: multiple diagnoses * * * * Physician Interpretation * * * * EXAMINATION: XR LUMBAR 3V AP/LAT/L5-S1 HISTORY: Remote injury. Chronic low back pain. 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. TECHNIQUE: XR LUMBAR 3V AP/LAT/L5-S1 Laterality: NOT APPLICABLE Number of different views (projections): 3 M: XB_1 COMPARISON: There are no prior relevant lumbar spine plain film examinations available for comparison within the [facility]. Comparison is made to MRI of the lumbar spine from and June 2012 RESULT: Counting reference: Lumbosacral junction. For the purposes of this report, L5-S1 is considered the last lumbar-type disc space and L4-5 is considered the level of the iliac crest. 3 Views of the lumbosacral spine with AP, lateral and cone-down radiographs demonstrate osteopenia, scoliotic fracture and multilevel degenerative change with vertebral body osteophytosis. There is mild intervertebral disc space narrowing at all lumbar levels. Hypertrophic facet change noted at the lower 2 levels. Subtle 2-3 mm retrolisthesis of L2 on L3 and L3 on L4. Mild loss of the normal thoracolumbar lordosis without associated compression deformity is stable dating back to 2011. There are no acute compression fractures and alignment is otherwise well maintained. The soft tissues are unremarkable. IMPRESSION IMPRESSION: Osteopenia, scoliotic curvature and degenerative changes as detailed in report. Soft Crab Shedder: PSCB Transcribe Date/Time: Mar 24 2022 2:00P Dictated by : MARCIE LOCK MD This examination was interpreted and the report reviewed and electronically signed by: MARCIE LOCK MD on Mar 24 2022 2:03PM [facility] XR Lumbar spine 3 ViewsOrder ed By: [facility] Provider on 03-24-2022 [facility] Vital Signs Date Time Vital Sign Value Performing Clinician Facility 05-15-2025 12:39-0400 Body mass index (BMI) [Ratio] 23.28 kg/m2 Cecilia Bridger ENGINE MANAGER.[employer] TECHNICIAN Work Phone: [facility] 05-15-2025 12:39-0400 Body temperature 98.49 [degF] Cecilia Sparks ENGINE MANAGER.[employer] TECHNICIAN Work Phone: [facility] 05-15-2025 12:39-0400 Body weight 63 kg Cecilia Sparks ENGINE MANAGER.[employer] TECHNICIAN Work Phone: [facility] 05-15-2025 12:39-0400 Diastolic blood pressure 63 mm[Hg] Cecilia Sparks ENGINE MANAGER.[employer] TECHNICIAN Work Phone: [facility] 05-15-2025 12:39-0400 Heart rate 90 /min Cecilia Sparks ENGINE MANAGER.[employer] TECHNICIAN Work Phone: [facility] 05-15-2025 12:39-0400 Respiratory rate 14 /min Cecilia Sparks ENGINE MANAGER.[employer] TECHNICIAN Work Phone: [facility] 05-15-2025 12:39-0400 SaO2% (BldA) [Mass fraction] 100 % Cecilia Sparks ENGINE MANAGER.[employer] TECHNICIAN Work Phone: [facility] 05-15-2025 12:39-0400 Systolic blood pressure 112 mm[Hg] Cecilia Sparks ENGINE MANAGER.[employer] TECHNICIAN Work Phone: [facility] 05-08-2025 12:26-0400 Body mass index (BMI) [Ratio] 23.21 kg/m2 Cecilia Sparks ENGINE MANAGER.[employer] TECHNICIAN Work Phone: [facility] 05-08-2025 12:26-0400 Body temperature 97.11 [degF] Cecilia Sparks ENGINE MANAGER.[employer] TECHNICIAN Work Phone: [facility] 05-08-2025 12:26-0400 Body weight 62.8 kg Cecilia Sparks ENGINE MANAGER.[employer] TECHNICIAN Work Phone: [facility] 05-08-2025 12:26-0400 Diastolic blood pressure 74 mm[Hg] Cecilia LauBridger ENGINE MANAGER.[employer] TECHNICIAN Work Phone: [facility] 05-08-2025 12:26-0400 Heart rate 68 /min Cecilia Bridger ENGINE MANAGER.[employer] TECHNICIAN Work Phone: [facility] 05-08-2025 12:26-0400 Respiratory rate 12 /min Cecilia Bridger ENGINE MANAGER.[employer] TECHNICIAN Work Phone: [facility] 05-08-2025 12:26-0400 SaO2% (BldA) [Mass fraction] 99 % Cecilia Bridger ENGINE MANAGER.[employer] TECHNICIAN Work Phone: [facility] 05-08-2025 12:26-0400 Systolic blood pressure 116 mm[Hg] Cecilia Bridger ENGINE MANAGER.[employer] TECHNICIAN Work Phone: [facility] 05-04-2025 13:39-0400 Body mass index (BMI) [Ratio] 23.1 kg/m2 Cecilia Bridger ENGINE MANAGER.[employer] TECHNICIAN Work Phone: [facility] 05-04-2025 13:39-0400 Body weight 62.5 kg Cecilia Bridger ENGINE MANAGER.[employer] TECHNICIAN Work Phone: [facility] 05-04-2025 13:39-0400 Diastolic blood pressure 84 mm[Hg] Cecilia Bridger ENGINE MANAGER.[employer] TECHNICIAN Work Phone: [facility] 05-04-2025 13:39-0400 Heart rate 75 /min Cecilia Bridger ENGINE MANAGER.[employer] TECHNICIAN Work Phone: [facility] 05-04-2025 13:39-0400 Respiratory rate 16 /min Cecilia Bridger ENGINE MANAGER.[employer] TECHNICIAN Work Phone: [facility] 05-04-2025 13:39-0400 SaO2% (BldA) [Mass fraction] 100 % Cecilia Bridger ENGINE MANAGER.[employer] TECHNICIAN Work Phone: [facility] 05-04-2025 13:39-0400 Systolic blood pressure 118 mm[Hg] Cecilia Bridger ENGINE MANAGER.[employer] TECHNICIAN Work Phone: [facility] 01-02-2025 11:20-0400 Body mass index (BMI) [Ratio] 23.36 kg/m2 Akin Elliott MD Work Phone: [facility] 01-02-2025 11:20-0400 Body weight 63.2 kg Akin Elliott MD Work Phone: [facility] 01-02-2025 11:20-0400 Diastolic blood pressure 80 mm[Hg] Akin Elliott MD Work Phone: [facility] 01-02-2025 11:20-0400 Heart rate 68 /min Akin Elliott MD Work Phone: [facility] 01-02-2025 11:20-0400 Respiratory rate 16 /min Akin Elliott MD Work Phone: [facility] 01-02-2025 11:20-0400 Systolic blood pressure 138 mm[Hg] Akin Elliott MD Work Phone: [facility] 09-15-2024 13:17-0500 Body height 164.5 cm Akin Elliott MD Work Phone: [facility] 09-15-2024 13:17-0500 Body mass index (BMI) [Ratio] 22.84 kg/m2 Akin Elliott MD Work Phone: [facility] 09-15-2024 13:17-0500 Body temperature 97.81 [degF] Akin Elliott MD Work Phone: [facility] 09-15-2024 13:17-0500 Body weight 61.8 kg Akin Elliott MD Work Phone: [facility] 09-15-2024 13:17-0500 Diastolic blood pressure 78 mm[Hg] Akin Elliott MD Work Phone: [facility] 09-15-2024 13:17-0500 Heart rate 74 /min Akin Elliott MD Work Phone: [facility] 09-15-2024 13:17-0500 Respiratory rate 16 /min Akin Elliott MD Work Phone: [facility] 09-15-2024 13:17-0500 SaO2% (BldA) [Mass fraction] 100 % Akin Elliott MD Work Phone: [facility] 09-15-2024 13:17-0500 Systolic blood pressure 126 mm[Hg] Akin Elliott MD Work Phone: [facility] 08-28-2024 13:59-0500 Body mass index (BMI) [Ratio] 23.35 kg/m2 Nirav Rivera MD Work Phone: [facility] 08-28-2024 13:59-0500 Body temperature 99.9 [degF] Nirav Rivera MD Work Phone: [facility] 08-28-2024 13:59-0500 Body weight 61.7 kg Nirav Rivera MD Work Phone: [facility] 08-28-2024 13:59-0500 Diastolic blood pressure 60 mm[Hg] Nirav Rivera MD Work Phone: [facility] 08-28-2024 13:59-0500 Heart rate 92 /min Nirav Rivera MD Work Phone: [facility] 08-28-2024 13:59-0500 Respiratory rate 16 /min Nirav Rivera MD Work Phone: [facility] 08-28-2024 13:59-0500 Systolic blood pressure 96 mm[Hg] Nirav Rivera MD Work Phone: [facility] 08-14-2024 12:17-0500 Body height 162.6 cm Cecilia Sparks ENGINE MANAGER.[employer] TECHNICIAN Work Phone: [facility] 08-14-2024 12:17-0500 Body mass index (BMI) [Ratio] 23.69 kg/m2 Cecilia Bridger ENGINE MANAGER.[employer] TECHNICIAN Work Phone: [facility] 08-14-2024 12:17-0500 Body weight 62.6 kg Cecilia Bridger ENGINE MANAGER.[employer] TECHNICIAN Work Phone: [facility] 08-14-2024 12:17-0500 Diastolic blood pressure 62 mm[Hg] Cecilia Bridger ENGINE MANAGER.[employer] TECHNICIAN Work Phone: [facility] 08-14-2024 12:17-0500 Heart rate 83 /min Cecilia Bridger ENGINE MANAGER.[employer] TECHNICIAN Work Phone: [facility] Comment on above: heart rate 83-112 08-14-2024 12:17-0500 Respiratory rate 14 /min Cecilia Bridger ENGINE MANAGER.[employer] TECHNICIAN Work Phone: [facility] 08-14-2024 12:17-0500 SaO2% (BldA) [Mass fraction] 96 % Cecilia Bridger ENGINE MANAGER.[employer] TECHNICIAN Work Phone: [facility] 08-14-2024 12:17-0500 Systolic blood pressure 128 mm[Hg] Cecilia Bridger ENGINE MANAGER.[employer] TECHNICIAN Work Phone: [facility] 08-04-2024 15:01-0500 Body mass index (BMI) [Ratio] 23.24 kg/m2 Cecilia Bridger ENGINE MANAGER.[employer] TECHNICIAN Work Phone: [facility] 08-04-2024 15:01-0500 Body temperature 98.8 [degF] Cecilia Bridger ENGINE MANAGER.[employer] TECHNICIAN Work Phone: [facility] 08-04-2024 15:01-0500 Body weight 62.5 kg Cecilia Bridger ENGINE MANAGER.[employer] TECHNICIAN Work Phone: [facility] 08-04-2024 15:01-0500 Diastolic blood pressure 82 mm[Hg] Cecilia Bridger ENGINE MANAGER.[employer] TECHNICIAN Work Phone: [facility] 08-04-2024 15:01-0500 Heart rate 74 /min Cecilia Bridger ENGINE MANAGER.[employer] TECHNICIAN Work Phone: [facility] 08-04-2024 15:01-0500 SaO2% (BldA) [Mass fraction] 95 % Cecilia Bridger ENGINE MANAGER.[employer] TECHNICIAN Work Phone: [facility] 08-04-2024 15:01-0500 Systolic blood pressure 144 mm[Hg] Cecilia SantosBridger ENGINE MANAGER.[employer] TECHNICIAN Work Phone: [facility] 08-01-2024 13:34-0500 Body height 164 cm Ev Huma ENGINE MANAGER.[employer] TECHNICIAN Work Phone: [facility] 08-01-2024 13:34-0500 Body mass index (BMI) [Ratio] 23.21 kg/m2 Ev Huma ENGINE MANAGER.[employer] TECHNICIAN Work Phone: [facility] 08-01-2024 13:34-0500 Body weight 62.41 kg Ev Huma ENGINE MANAGER.[employer] TECHNICIAN Work Phone: [facility] 08-01-2024 13:34-0500 Diastolic blood pressure 74 mm[Hg] Ev Camdenton ENGINE MANAGER.[employer] TECHNICIAN Work Phone: [facility] 08-01-2024 13:34-0500 Systolic blood pressure 128 mm[Hg] Ev Huma ENGINE MANAGER.[employer] TECHNICIAN Work Phone: [facility] 07-08-2024 12:02-0400 Diastolic blood pressure 85 mm[Hg] Cheyenne Vladimir ENGINE MANAGER.[employer] TECHNICIAN Work Phone: [facility] 07-08-2024 12:02-0400 Systolic blood pressure 147 mm[Hg] Cheyenne Vladimir ENGINE MANAGER.[employer] TECHNICIAN Work Phone: [facility] 07-08-2024 12:00-0400 Body mass index (BMI) [Ratio] 22.31 kg/m2 Cheyenne Vladimir ENGINE MANAGER.[employer] TECHNICIAN Work Phone: [facility] 07-08-2024 12:00-0400 Body temperature 98.29 [degF] Cheyenne Vladimir ENGINE MANAGER.[employer] TECHNICIAN Work Phone: [facility] 07-08-2024 12:00-0400 Body weight 62.7 kg Cheyenne Vladimir ENGINE MANAGER.[employer] TECHNICIAN Work Phone: [facility] 07-08-2024 12:00-0400 Heart rate 86 /min Cheyenne Vladimir ENGINE MANAGER.[employer] TECHNICIAN Work Phone: [facility] 07-08-2024 12:00-0400 SaO2% (BldA) [Mass fraction] 95 % Cheyenne Gilbert APRN.[employer] TECHNICIAN Work Phone: [facility] 05-23-2024 12:47-0400 Diastolic blood pressure 70 mm[Hg] Akin Elliott MD Work Phone: [facility] 05-23-2024 12:47-0400 Systolic blood pressure 120 mm[Hg] Akin Elliott MD Work Phone: [facility] 05-23-2024 11:56-0400 Body mass index (BMI) [Ratio] 22.1 kg/m2 Akin Elliott MD Work Phone: [facility] 05-23-2024 11:56-0400 Body temperature 98.49 [degF] Akin Elliott MD Work Phone: [facility] 05-23-2024 11:56-0400 Body weight 62.1 kg Akin Elliott MD Work Phone: [facility] 05-23-2024 11:56-0400 Heart rate 83 /min Akin Elliott MD Work Phone: [facility] 05-23-2024 11:56-0400 Respiratory rate 16 /min Akin Elliott MD Work Phone: [facility] 05-23-2024 11:56-0400 SaO2% (BldA) [Mass fraction] 97 % Akin Elliott MD Work Phone: [facility] 05-08-2024 12:53-0400 Diastolic blood pressure 66 mm[Hg] Jayjay Field MD Work Phone: [facility] 05-08-2024 12:53-0400 Heart rate 70 /min Jayjay Field MD Work Phone: [facility] 05-08-2024 12:53-0400 Respiratory rate 16 /min Jayjay Field MD Work Phone: [facility] 05-08-2024 12:53-0400 SaO2% (BldA) [Mass fraction] 99 % Jayjay Field MD Work Phone: [facility] 05-08-2024 12:53-0400 Systolic blood pressure 131 mm[Hg] Jayjay Field MD Work Phone: [facility] 05-08-2024 11:38-0400 Body mass index (BMI) [Ratio] 21.99 kg/m2 Jayjay Field MD Work Phone: [facility] 05-08-2024 11:38-0400 Body temperature 97.59 [degF] Jayjay Field MD Work Phone: [facility] 05-08-2024 11:38-0400 Body weight 61.8 kg Jayjay Field MD Work Phone: [facility] 04-23-2024 13:23-0400 Body height 167.6 cm Amanda Gio ENGINE MANAGER.[employer] TECHNICIAN Work Phone: [facility] 04-23-2024 13:23-0400 Body mass index (BMI) [Ratio] 21.98 kg/m2 Amanda Gio ENGINE MANAGER.[employer] TECHNICIAN Work Phone: [facility] 04-23-2024 13:23-0400 Body temperature 97 [degF] Amanda Gio ENGINE MANAGER.[employer] TECHNICIAN Work Phone: [facility] 04-23-2024 13:23-0400 Body weight 61.78 kg Amanda Gio ENGINE MANAGER.[employer] TECHNICIAN Work Phone: [facility] 04-23-2024 13:23-0400 Diastolic blood pressure 60 mm[Hg] Amanda Gio ENGINE MANAGER.[employer] TECHNICIAN Work Phone: [facility] 04-23-2024 13:23-0400 Heart rate 90 /min Amanda Gio ENGINE MANAGER.[employer] TECHNICIAN Work Phone: [facility] 04-23-2024 13:23-0400 SaO2% (BldA) [Mass fraction] 100 % Amanda Gio ENGINE MANAGER.[employer] TECHNICIAN Work Phone: [facility] 04-23-2024 13:23-0400 Systolic blood pressure 118 mm[Hg] Amanda Gio ENGINE MANAGER.[employer] TECHNICIAN Work Phone: [facility] 04-17-2024 11:19-0400 Heart rate 91 /min Krzysztof Chan MD Work Phone: [facility] 04-17-2024 11:19-0400 Respiratory rate 18 /min Krzysztof Chan MD Work Phone: [facility] 04-17-2024 11:19-0400 SaO2% (BldA) [Mass fraction] 99 % Krzysztof Chan MD Work Phone: [facility] 03-19-2024 13:06-0400 Body mass index (BMI) [Ratio] 21.31 kg/m2 Cheyenne Vladimir ENGINE MANAGER.[employer] TECHNICIAN Work Phone: [facility] 03-19-2024 13:06-0400 Body weight 59.88 kg Cheyenne Vladimir ENGINE MANAGER.[employer] TECHNICIAN Work Phone: [facility] 03-19-2024 13:06-0400 Diastolic blood pressure 72 mm[Hg] Cheyenne Vladimir ENGINE MANAGER.[employer] TECHNICIAN Work Phone: [facility] 03-19-2024 13:06-0400 Heart rate 79 /min Cheyenne Vladimir ENGINE MANAGER.[employer] TECHNICIAN Work Phone: [facility] 03-19-2024 13:06-0400 SaO2% (BldA) [Mass fraction] 99 % Cheyenne Vladimir ENGINE MANAGER.[employer] TECHNICIAN Work Phone: [facility] 03-19-2024 13:06-0400 Systolic blood pressure 124 mm[Hg] Cheyenne Vladimir ENGINE MANAGER.[employer] TECHNICIAN Work Phone: [facility] 03-04-2024 13:51-0400 Body mass index (BMI) [Ratio] 21.14 kg/m2 Carlee Tyler ENGINE MANAGER.MANAGER WIND Work Phone: [facility] 03-04-2024 13:51-0400 Body weight 59.42 kg Carlee Tyler ENGINE MANAGER.MANAGER WIND Work Phone: [facility] 03-04-2024 13:51-0400 Diastolic blood pressure 83 mm[Hg] Carlee Tyler ENGINE MANAGER.MANAGER WIND Work Phone: [facility] 03-04-2024 13:51-0400 Heart rate 73 /min Carlee Tyler ENGINE MANAGER.MANAGER WIND Work Phone: [facility] 03-04-2024 13:51-0400 Respiratory rate 16 /min Carlee Tyler ENGINE MANAGER.MANAGER WIND Work Phone: [facility] 03-04-2024 13:51-0400 Systolic blood pressure 124 mm[Hg] Carlee Tyler ENGINE MANAGER.MANAGER WIND Work Phone: [facility] 10-29-2023 14:12-0500 Body weight 59.97 kg Eduardo Holden Jr., MD Work Phone: [facility] 10-29-2023 14:12-0500 Diastolic blood pressure 82 mm[Hg] Edurado Holden Jr., MD Work Phone: [facility] 10-29-2023 14:12-0500 Heart rate 80 /min Eduardo Holden Jr., MD Work Phone: [facility] 10-29-2023 14:12-0500 Respiratory rate 18 /min Eduardo Holden Jr., MD Work Phone: [facility] 10-29-2023 14:12-0500 SaO2% (BldA) [Mass fraction] 99 % Eduardo Holden Jr., MD Work Phone: [facility] 10-29-2023 14:12-0500 Systolic blood pressure 134 mm[Hg] Eduardo Holden Jr., MD Work Phone: [facility] 08-16-2023 13:56-0500 Body height 167.6 cm Carlee Tyler ENGINE MANAGER.MANAGER WIND Work Phone: [facility] 08-16-2023 13:56-0500 Body temperature 99.1 [degF] Carlee Tyler ENGINE MANAGER.MANAGER WIND Work Phone: [facility] 08-16-2023 13:56-0500 Body weight 60.33 kg Carlee Tyler ENGINE MANAGER.MANAGER WIND Work Phone: [facility] 08-16-2023 13:56-0500 Diastolic blood pressure 80 mm[Hg] Carlee Tyler ENGINE MANAGER.MANAGER WIND Work Phone: [facility] 08-16-2023 13:56-0500 Heart rate 89 /min Carlee Tyler ENGINE MANAGER.MANAGER WIND Work Phone: [facility] 08-16-2023 13:56-0500 SaO2% (BldA) [Mass fraction] 98 % Carlee Tyler ENGINE MANAGER.MANAGER WIND Work Phone: [facility] 08-16-2023 13:56-0500 Systolic blood pressure 104 mm[Hg] Carlee Tyler ENGINE MANAGER.MANAGER WIND Work Phone: [facility] 07-30-2023 10:41-0500 Body temperature 98.91 [degF] Carlee Tyler ENGINE MANAGER.MANAGER WIND Work Phone: [facility] 07-30-2023 10:41-0500 Body weight 60.78 kg Carlee Tyler ENGINE MANAGER.MANAGER WIND Work Phone: [facility] 07-30-2023 10:41-0500 Diastolic blood pressure 70 mm[Hg] Carlee Tyler ENGINE MANAGER.MANAGER WIND Work Phone: [facility] 07-30-2023 10:41-0500 Heart rate 66 /min Carlee Tyler ENGINE MANAGER.MANAGER WIND Work Phone: [facility] 07-30-2023 10:41-0500 Respiratory rate 16 /min Carlee Tyler ENGINE MANAGER.MANAGER WIND Work Phone: [facility] 07-30-2023 10:41-0500 SaO2% (BldA) [Mass fraction] 100 % Carlee Tyler ENGINE MANAGER.MANAGER WIND Work Phone: [facility] 07-30-2023 10:41-0500 Systolic blood pressure 133 mm[Hg] Carlee Tyler ENGINE MANAGER.MANAGER WIND Work Phone: [facility] 07-13-2023 10:39-0400 Body height 167.[address] Akin Elliott Work Phone: [facility] 07-13-2023 10:39-0400 Body mass index (BMI) [Ratio] 21.8 kg/m2 Dr. Akin Elliott Work Phone: [facility] 07-13-2023 10:39-0400 Body weight 61.[address] Akin Elliott Work Phone: [facility] 06-18-2023 14:02-0400 Body height 167.6 cm Harriett Alejo MD Work Phone: [facility] 06-18-2023 14:02-0400 Body temperature 98.2 [degF] Harriett Alejo MD Work Phone: [facility] 06-18-2023 14:02-0400 Body weight 61.69 kg Harriett Alejo MD Work Phone: [facility] 06-18-2023 14:02-0400 Diastolic blood pressure 60 mm[Hg] Harriett Alejo MD Work Phone: [facility] 06-18-2023 14:02-0400 Heart rate 89 /min Harriett Alejo MD Work Phone: [facility] 06-18-2023 14:02-0400 SaO2% (BldA) [Mass fraction] 99 % Harriett Alejo MD Work Phone: [facility] 06-18-2023 14:02-0400 Systolic blood pressure 98 mm[Hg] Harriett Alejo MD Work Phone: [facility] 05-25-2023 20:58-0400 Diastolic blood pressure 60 mm[Hg] [facility] 05-25-2023 20:58-0400 Heart rate 84 /min [facility] 05-25-2023 20:58-0400 Respiratory rate 16 /min [facility] 05-25-2023 20:58-0400 SaO2% (BldA) [Mass fraction] 97 % [facility] 05-25-2023 20:58-0400 Systolic blood pressure 116 mm[Hg] [facility] 05-25-2023 16:56-0400 Body height 167.64 cm [facility] 05-25-2023 16:56-0400 Body mass index (BMI) [Ratio] 21.9 kg/m2 [facility] 05-25-2023 16:56-0400 Body temperature 98.5 [degF] [facility] 05-25-2023 16:56-0400 Body weight 61.68 kg [facility] 03-16-2023 10:53-0400 Body weight 63.96 kg Carlee Tyler ENGINE MANAGER.MANAGER WIND Work Phone: [facility] 03-16-2023 10:53-0400 Diastolic blood pressure 72 mm[Hg] Carlee Tyler ENGINE MANAGER.MANAGER WIND Work Phone: [facility] 03-16-2023 10:53-0400 Heart rate 80 /min Carlee Tyler ENGINE MANAGER.MANAGER WIND Work Phone: [facility] 03-16-2023 10:53-0400 Respiratory rate 16 /min Carlee Tyler ENGINE MANAGER.MANAGER WIND Work Phone: [facility] 03-16-2023 10:53-0400 Systolic blood pressure 122 mm[Hg] Carlee Tyler ENGINE MANAGER.MANAGER WIND Work Phone: [facility] 01-28-2023 15:20-0400 Body temperature 98.7 [degF] [facility] 01-28-2023 15:20-0400 Diastolic blood pressure 84 mm[Hg] [facility] 01-28-2023 15:20-0400 Heart rate 72 /min [facility] 01-28-2023 15:20-0400 Respiratory rate 16 /min [facility] 01-28-2023 15:20-0400 SaO2% (BldA) [Mass fraction] 97 % [facility] 01-28-2023 15:20-0400 Systolic blood pressure 135 mm[Hg] [facility] 01-28-2023 11:37-0400 Body height 167.64 cm [facility] 01-28-2023 11:37-0400 Body mass index (BMI) [Ratio] 23.1 kg/m2 [facility] 01-28-2023 11:37-0400 Body weight 64.86 kg [facility] 09-13-2022 09:31-0500 Body temperature 99 [degF] Akin Elliott MD Work Phone: [facility] 09-13-2022 09:31-0500 Body weight 70.31 kg Akin Elliott MD Work Phone: [facility] 09-13-2022 09:31-0500 Diastolic blood pressure 72 mm[Hg] Akin Elliott MD Work Phone: [facility] 09-13-2022 09:31-0500 Heart rate 74 /min Akin Elliott MD Work Phone: [facility] 09-13-2022 09:31-0500 Respiratory rate 18 /min Akin Elliott MD Work Phone: [facility] 09-13-2022 09:31-0500 SaO2% (BldA) [Mass fraction] 98 % Akin Elliott MD Work Phone: [facility] 09-13-2022 09:31-0500 Systolic blood pressure 120 mm[Hg] Akin Elliott MD Work Phone: [facility] 07-26-2022 11:04-0500 Body temperature 97.5 [degF] Sean Paulson MD Work Phone: [facility] 07-26-2022 11:04-0500 Body weight 73.03 kg Sean Paulson MD Work Phone: [facility] 07-26-2022 11:04-0500 Diastolic blood pressure 68 mm[Hg] Sean Paulson MD Work Phone: [facility] 07-26-2022 11:04-0500 Heart rate 90 /min Sean Paulson MD Work Phone: [facility] 11-16-2022 11:04-0500 Respiratory rate 16 /min Sean Paulson MD Work Phone: [facility] 07-26-2022 11:04-0500 SaO2% (BldA) [Mass fraction] 96 % Sean Paulson MD Work Phone: [facility] 07-26-2022 11:04-0500 Systolic blood pressure 118 mm[Hg] Sean Paulson MD Work Phone: [facility] 03-24-2022 10:38-0400 Body weight 74.39 kg Carlee Tyler ENGINE MANAGER.MANAGER WIND Work Phone: [facility] 03-24-2022 10:38-0400 Diastolic blood pressure 72 mm[Hg] Carlee Tyler ENGINE MANAGER.MANAGER WIND Work Phone: [facility] 03-24-2022 10:38-0400 Heart rate 80 /min Carlee Tyler ENGINE MANAGER.MANAGER WIND Work Phone: [facility] 03-24-2022 10:38-0400 Respiratory rate 16 /min Carlee Tyler ENGINE MANAGER.MANAGER WIND Work Phone: [facility] 03-24-2022 10:38-0400 SaO2% (BldA) [Mass fraction] 97 % Carlee Tyler ENGINE MANAGER.MANAGER WIND Work Phone: [facility] 03-24-2022 10:38-0400 Systolic blood pressure 122 mm[Hg] Carlee Tyler ENGINE MANAGER.MANAGER WIND Work Phone: [facility] Encounters Encounter Date Encounter Type Care Provider Facility Start: 07-07-2025 End: 07-07-2025 ambulatory CECILIA SPARKS Facility:[facility] Start: 05-19-2025 End: 05-20-2025 Telephone encounter Cecilia Sparks APRN.[employer] TECHNICIAN Work Phone: [facility] [place] Comment on above: Medication Request; Pt still feeling ill Start: 05-15-2025 End: 05-15-2025 Office outpatient visit 15 minutes Cecilia Sparks APRN.[employer] TECHNICIAN Work Phone: [facility] Comment on above: Acute non-recurrent sinusitis, unspecified location (Primary Dx) Start: 05-15-2025 End: 05-15-2025 ambulatory CECILIA SPARKS Facility:[facility] Start: 05-14-2025 ambulatory CECILIA SPARKS Facil ity:[facility] Start: 05-14-2025 End: 05-14-2025 Subsequent hospital visit by physician Screen Mammo [facility] Comment on above: Encounter for screen ing mammogram for breast cancer [Z12.31] Start: 05-08-2025 End: 05-08-2025 Office outpatient visit 15 minutes Cecilia Sparks ENGINE MANAGER.[employer] TECHNICIAN Work Phone: [facility] Comment on above: Viral URI with cough (Primary Dx) Start: 05-08-2025 End: 05-08-2025 ambulatory CECILIA SPARKS Facility:[facility] Start: 05-04-2025 End: 05-04-2025 Office outpatient visit 25 minutes Cecilia Sparks ENGINE MANAGER.[employer] TECHNICIAN Work Phone: [facility] Comment on above: DDD (degenerative di sc disease), lumbar (Primary Dx); Chronic bilateral low back pain without sciatica; Cervicalgia; Displacement of cervical intervertebral disc without myelopathy; Migraine variant; Chronic diarrhea; Chronic nausea; Encounter for screening mammogram for breast cancer Start: 05-04-2025 End: 05-04-2025 ambulatory CECILIA SPARKS Facility:[facility] Start: 02-12-2025 End: 02-12-2025 Refill Akin Elliott MD Work Phone: [facility] [place] Comment on above: Refill Request Start: 01-02-2025 End: 01-02-2025 Office outpatient visit 25 minutes Akin Elliott MD Work Phone: [facility] Comment on above: Other chronic back p ain (Primary Dx); Migraine variant; Bee sting allergy; Cervicothoracic disc displacement; Nausea; Gastroesophageal reflux disease, unspecified whether esophagitis present; Acute cough; Essential (primary) hypertension; Seasonal allergic rhinitis due to other allergic trigger; Hiatal hernia; Encounter for screening mammogram for breast cancer Start: 01-02-2025 End: 01-02-2025 ambulatory SELF Facility:[facility] Start: 12-16-2024 End: 12-16-2024 Telephone encounter Akin Elliott MD Work Phone: [facility] Comment on above: Refill Request Start: 10-29-2024 End: 10-30-2024 Refill Akin Elliott MD Work Phone: [facility] Comment on above: Refill Request Start: 10-22-2024 End: 10-22-2024 ambulatory Akin Elliott Facility:[facility] Start: 10-08-2024 End: 10-08-2024 Refill Akin Elliott MD Work Phone: Internal Medicine [place] Comment on above: Refill Request Start: 09-15-2024 End: 09-15-2024 Patient encounter status Akin Elliott MD Work Phone: [facility] Work Phone: Start: 09-15-2024 End: 09-15-2024 Periodic preventive med est patient 40-64yrs Akin Elliott MD Work Phone: Internal Medicine [place] Comment on above: Routine medical exam (Primary Dx); Chronic sinusitis, unspecified location; Other chronic back pain; Cervicothoracic disc displacement; Migraine variant Start: 09-15-2024 End: 09-15-2024 ambulatory AKIN ELLIOTT Facility:[facility] Start: 09-15-2024 Encounter for genera l adult medical examination without abnormal findings AKIN ELLIOTT [facility] Start: 09-05-2024 End: 09-16-2024 Telephone encounter Akin Elliott MD Work Phone: Internal Medicine [place] Comment on above: Patient Question Start: 09-04-2024 End: 09-04-2024 ambulatory CECILIA SPARKS Facility:[facility] Start: 09-04-2024 End: 09-04-2024 Subsequent hospital visit by physician [facility] Work Phone: Nuclear Medicine Comment on above: Nausea and vomiting, unspecified vomiting type [R11.2] Start: 08-28-2024 End: 08-28-2024 ambulatory NIRAV RIVERA Facility:[facility] Start: 08-28-2024 End: 08-28-2024 Patient encounter procedure Nirav Rivera MD Work Phone: [facility] [place] Comment on above: Acute non-recurrent sinusitis, unspecified location (Primary Dx); Watery eyes; Dysphagia, unspecified type; Gastroesophageal reflux disease, unspecified whether esophagitis present; Nausea and vomiting, unspecified vomiting type Start: 08-27-2024 End: 08-27-2024 Telephone encounter Akin Elliott MD Work Phone: Internal [facility] [place] Comment on above: Appointment; Patient Update Start: 08-25-2024 End: 08-25-2024 Emergency department patient visit Akin Elliott Facility:[facility] Start: 08-15-2024 End: 08-15-2024 ambulatory Carmela Cintron Facility:[facility] Start: 08-15-2024 End: 08-22-2024 Telephone encounter Cecilia Sparks ENGINE MANAGER.[employer]OM[employer] PLANT TECHNICIAN Work Phone: Internal [facility] Comment on above: Results Start: 08-14-2024 End: 08-14-2024 ambulatory CECILIA SPARKS Facility:[facility] Start: 08-14-2024 End: 08-14-2024 Patient encounter procedure Cecilia Sparks ENGINE MANAGER.[employer]OM[employer] PLANT TECHNICIAN Work Phone: Internal [facility] Comment on above: Generalized abdomina l pain (Primary Dx); Intractable vomiting; Upper respiratory tract infection, unspecified type Start: 08-13-2024 End: 08-14-2024 ambulatory Cecilia Sparks [employer] Facility:[facility] Start: 08-06-2024 End: 08-13-2024 ambulatory Cecilia Sparks ENGINE MANAGER.[employer] PL[employer] TECHNICIAN Work Phone: Internal [facility] [place] Comment on above: lab and ultrasound r esults Start: 08-06-2024 End: 08-13-2024 E-mail encounter from caregiver Cecilia Sparks [employer] TECHNICIAN Work Phone: Internal Medicine [place] Start: 08-06-2024 End: 08-06-2024 Telephone encounter Ev Rosacalf ABBY.[employer] PL[employer] TECHNICIAN Work Phone: OB/Gynecology Comment on above: Results Start: 08-05-2024 End: 08-05-2024 Telephone encounter Cecilia Phillips Bridger MORA.[employer]OMASS PLANT TECHNICIAN Work Phone: Internal Medicine [place] Start: 08-05-2024 End: 08-05-2024 ambulatory Evaluation Assistant [facility] Work Phone: OB/Gynecology Start: 08-05-2024 End: 08-05-2024 Patient encounter procedure Evaluation Assistant [facility] Work Phone: OB/Gynecology Start: 08-05-2024 End: 08-05-2024 Subsequent hospital visit by physician [facility] Work Phone: Radiology Comment on above: Elevated LFTs [R79.8 9] Start: 08-05-2024 End: 08-05-2024 ambulatory CECILIA SPARKS Facility:[facility] Start: 08-04-2024 End: 08-04-2024 Patient encounter procedure Cecilia Sparks ABBY.[employer] PL[employer] TECHNICIAN Work Phone: Internal Medicine [place] Comment on above: Shortness of breath (Primary Dx); Acute cough; Nausea and vomiting, unspecified vomiting type Start: 08-04-2024 End: 08-04-2024 ambulatory AKIN Raj ELLIOTT Facility:[facility] Start: 08-01-2024 End: 08-01-2024 ambulatory AKIN D EDELMIRAAMPFABIOLA Facility:[facility] Start: 08-01-2024 End: 08-01-2024 Subsequent hospital visit by physician [facility] Work Phone: Radiology Comment on above: Subacute cough [R05. 2] Start: 08-01-2024 End: 08-04-2024 Telephone encounter Akin Elliott MD Work Phone: Internal [facility] [place] Comment on above: Patient Update Start: 08-01-2024 End: 08-01-2024 ambulatory EV FINN Facility:[facility] Start: 08-01-2024 End: 08-01-2024 Patient encounter procedure Ev Finn MAGDALENE Work Phone: OB/Gynecology Comment on above: Encounter for gyneco logical examination (general) (routine) without abnormal findings (Primary Dx); Encounter for screening for human papillomavirus (HPV); Pap smear for cervical cancer screening; Encounter for screening mammogram for breast cancer; Pelvic pain in female Start: 08-01-2024 End: 08-01-2024 Patient encounter status Ev Finn MAGDALENE Work Phone: [facility] Start: 07-18-2024 End: 07-18-2024 Telephone encounter Cheyenne Gilbert APRN.CNP Work Phone: Internal Medicine [place] Comment on above: Medication Problem Start: 07-16-2024 End: 07-16-2024 Telephone encounter Cheyenne Gilbert APRN.CNP Work Phone: Internal [facility] [place] Comment on above: Medication Question Start: 07-08-2024 End: 07-08-2024 Patient encounter procedure Cheyenne Gilbert APRN.CNP Work Phone: Internal [facility] [place] Comment on above: Acute non-recurrent pansinusitis (Primary Dx) Refill Request Start: 06-17-2024 End: 06-17-2024 ambulatory Akin Elliott Facility:[facility] Start: 05-28-2024 End: 05-28-2024 ambulatory [facility] Facility:[facility] Start: 05-27-2024 End: 05-27-2024 Telephone encounter Amanda Powers APRN.CNP Work Phone: General Surgery Start: 05-23-2024 End: 05-23-2024 Office outpatient visit 25 minutes Akin Elliott MD Work Phone: Internal [facility] [place] Comment on above: Pharyngeal dysphagia (Primary Dx); DDD (degenerative disc disease), lumbar; Nausea; Other chronic back pain; 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; Cervicalgia; Displacement of cervical intervertebral disc without myelopathy; Cervicothoracic disc displacement; Vitamin D deficiency; Acute cough; Nasal drainage; Migraine variant; Ear fullness, bilateral; Encounter for immunization Start: 05-19-2024 End: 05-19-2024 Patient encounter procedure Amanda Powers APRN.[employer]OM[employer] PL[employer] TECHNICIAN Work Phone: General Surgery Comment on above: Oropharyngeal dyspha klever (Primary Dx) Start: 05-09-2024 End: 05-09-2024 Subsequent hospital visit by physician [facility] Work Phone: Radiology Comment on above: Pharyngeal dysphagia [R13.13] Start: 05-08-2024 End: 05-08-2024 Subsequent hospital visit by physician Jayjay Field MD Work Phone: Ambulatory Surgery Comment on above: Gastroesophageal ref lux disease, unspecified whether esophagitis present [K21.9] Start: 05-07-2024 End: 05-09-2024 Telephone encounter Amanda Powres APRN.[employer] PL[employer] TECHNICIAN Work Phone: General Surgery Comment on above: Results Start: 05-02-2024 End: 05-02-2024 Subsequent hospital visit by physician [facility] (I-Stat) Work Phone: Cat Scan Comment on above: Left lower quadrant abdominal pain [R10.32] Start: 04-23-2024 End: 04-23-2024 Patient encounter procedure Amanda Powers APRN.[employer] TECHNICIAN Work Phone: General Surgery Comment on above: Dysphagia, unspecifi ed type (Primary Dx); Gastroesophageal reflux disease, unspecified whether esophagitis present; Left lower quadrant abdominal pain Start: 04-21-2024 Telephone encounter Eduardo Holden MD Work Phone: [facility] Comment on above: Results Start: 04-17-2024 Telephone encounter Krzysztof Chan MD Work Phone: [facility] Comment on above: Injections Start: 04-17-2024 End: 04-17-2024 Patient encounter procedure Krzysztof Chan MD Work Phone: [facility] Comment on above: Thoracic facet syndr ome (Primary Dx) Start: 04-17-2024 End: 04-17-2024 ambulatory KRZYSZTOF CHAN Facility:[facility] Start: 04-10-2024 End: 04-10-2024 Subsequent hospital visit by physician [facility] (I-Stat/1.5t) Work Phone: Radiology Comment on above: Intractable chronic migraine without aura and without status migrainosus [G43.719] Start: 04-04-2024 Telephone encounter Akin kay MD Work Phone: Family Medicine [place] Comment on above: Results Start: 03-31-2024 End: 03-31-2024 Subsequent hospital visit by physician [facility] 1 Work Phone: Radiology Comment on above: Pharyngeal dysphagia [R13.13] Start: 03-19-2024 End: 03-19-2024 Patient encounter procedure Cheyenne Gilbert APRN.[employer] TECHNICIAN Work Phone: Internal Medicine [place] Comment on above: Thyroid enlarged (Pr imary Dx); Pharyngeal dysphagia Start: 03-07-2024 Telephone encounter Akin kay MD Work Phone: [facility] Comment on above: Throat Problem Start: 03-05-2024 Telephone encounter Krzysztof Chan MD Work Phone: [facility] Comment on above: Returning Patient's Call Medication Problem Start: 03-04-2024 End: 03-04-2024 Office outpatient visit 25 minutes Carlee Tyler APRN.MANAGER WIND Work Phone: Internal Medicine [place] Comment on above: Other chronic back p ain (Primary Dx); Special screening examination for viral disease; Screening for HIV (human immunodeficiency virus); Screening for cervical cancer; Encounter for immunization; Cervicothoracic disc displacement; Acute cough; Nasal drainage; Ear fullness, bilateral; Other fatigue; Cervical cancer screening Start: 01-16-2024 ambulatory Akin obregon MD Work Phone: [facility] [place] Start: 10-29-2023 End: 10-29-2023 Patient encounter procedure Eduardo Holden MD Work Phone: Neurology Comment on above: Intractable chronic migraine without aura and without status migrainosus (Primary Dx); Medication overuse headache; Intractable chronic post-traumatic headache Start: 10-15-2023 Telephone encounter Akin kay MD Work Phone: Internal Medicine [place] Comment on above: Medication Question Start: 08-16-2023 End: 08-16-2023 Office outpatient visit 15 minutes Carlee Tyler ENGINE MANAGER.MANAGER WIND Work Phone: Internal Medicine [place] Comment on above: Subacute sinusitis, unspecified location (Primary Dx); Acute cough Start: 08-10-2023 End: 08-10-2023 Subsequent hospital visit by physician [facility] Work Phone: Radiology Comment on above: Acute cough [R05.1] Start: 08-09-2023 End: 08-09-[address] Akin Elliott Work Phone: [facility] Work Phone: Start: 08-09-2023 End: 08-09-[address] [facility] Work Phone: Start: 08-07-2023 End: 08-07-[address] Akin Elliott Work Phone: [facility] Work Phone: Start: 08-07-2023 End: 08-07-[address] Akin Elliott Work Phone: [facility] Work Phone: Start: 08-03-2023 Telephone encounter Akin kay MD Work Phone: Internal Medicine [place] Comment on above: Patient Update Start: 07-30-2023 End: 07-30-2023 Office outpatient visit 15 minutes Carlee Tyler ENGINE MANAGER.MANAGER WIND Work Phone: Internal Medicine [place] Comment on above: Acute cough (Primary Dx); Cough; Nasal drainage; Ear fullness, bilateral Start: 07-13-2023 Telephone encounter Harriett Camilo MD Work Phone: General Surgery Comment on above: Results Start: 07-13-2023 End: 07-13-[address] Akin Elliott Work Phone: [facility] Work Phone: Start: 07-13-2023 End: 07-13-[address] Akin Elliott Work Phone: [facility] Start: 07-13-2023 End: 07-13-[address] Akin Elliott Work Phone: [facility] Work Phone: Start: 06-29-2023 Refill Akin obregon MD Work Phone: Internal Medicine [place] Comment on above: Refill Request Start: 06-28-2023 End: 06-28-2023 ambulatory HARRIETT ALEJO Facility:[facility] Start: 06-18-2023 End: 06-18-2023 Patient encounter procedure Harriett Alejo MD Work Phone: General Surgery Comment on above: Diarrhea, unspecifie d type; History of colonic polyps Start: 05-25-2023 End: 05-25-2023 Emergency department patient visit [facility]gency [facility] Work Phone: Start: 04-04-2023 End: 04-04-2023 ambulatory [facility] Work Phone: Start: 04-04-2023 End: 04-04-2023 Patient encounter procedure [facility] Work Phone: Start: 03-27-2023 Telephone encounter Carlee adrian APRN.MANAGER WIND Work Phone: Internal Medicine [place] Comment on above: Results Start: 03-19-2023 Refill Akin obregon MD Work Phone: Internal Medicine [place] Comment on above: Refill Request Start: 03-16-2023 End: 03-16-2023 Office outpatient visit 25 minutes Carlee Tyler ROC Work Phone: Internal Medicine [place] Comment on above: Migraine variant (Pr imary Dx); Encounter for immunization; Screening for cervical cancer; Hypercholesteremia; Nausea; Gastroesophageal reflux disease, unspecified whether esophagitis present; Other chronic back pain; 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; Cervicalgia; Displacement of cervical intervertebral disc without myelopathy; Cervicothoracic disc displacement; DDD (degenerative disc disease), lumbar; Sprain of neck; [facility] Start: 02-07-2023 ambulatory Akin obregon MD Work Phone: Internal Medicine [facility] Start: 01-28-2023 End: 01-28-2023 Emergency department patient visit [facility]gency [facility] Work Phone: Start: 12-27-2022 Refill Akin obregon MD Work Phone: [facility] Comment on above: Refill Request Start: 09-13-2022 End: 09-13-2022 Office outpatient visit 25 minutes Akin Elliott MD Work Phone: Internal Medicine [place] Comment on above: Hypercholesteremia ( Primary Dx); Migraine variant; Gastroesophageal reflux disease, unspecified whether esophagitis present; Mixed hyperlipidemia; Pain in both upper extremities; Popliteal pain; 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; Cervicothoracic disc displacement; Displacement of cervical intervertebral disc without myelopathy; Osteopenia, unspecified location; Encounter for long-term current use of medication Start: 09-07-2022 Telephone encounter Akin kay MD Work Phone: Pain Management Comment on above: Population Health Na vigation Outreach Start: 07-31-2022 Refill Akin obregon MD Work Phone: Internal Medicine [place] Comment on above: Refill Request Start: 07-26-2022 Telephone encounter Akin kay MD Work Phone: Internal Medicine [place] Comment on above: URI symptoms Start: 07-26-2022 End: 07-26-2022 Patient encounter procedure Sean Paulson MD Work Phone: [facility] Comment on above: Acute non-recurrent sinusitis, unspecified location (Primary Dx) Start: 04-02-2022 Telephone encounter Carlee adrian APRN.MANAGER WIND Work Phone: Internal Medicine [place] Comment on above: Results, Lab Start: 03-29-2022 Telephone encounter Akin kay MD Work Phone: [facility] [place] Comment on above: Patient Question (re sults XR) Start: 03-24-2022 End: 03-24-2022 Subsequent hospital visit by physician Xr [facility] Work Phone: Radiology Comment on above: Other chronic back p ain [M54.9, G89.29] Start: 03-24-2022 End: 03-24-2022 Patient encounter procedure Carlee Tyler APRN.MANAGER WIND Work Phone: Internal Medicine [place] Comment on above: Other chronic back p ain (Primary Dx); Migraine variant; Cervicalgia; 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; Cervicothoracic disc displacement; Encounter for immunization; Special screening examination for viral disease; Screening for HIV (human immunodeficiency virus); Screening for cervical cancer; Encounter for gynecological examination without abnormal finding; Gastroesophageal reflux disease, unspecified whether esophagitis present; Hypercholesteremia; Encounter for screening mammogram for breast cancer Start: 03-24-2022 End: 03-24-2022 Patient encounter status Carlee Tyler APRN.MANAGER WIND Work Phone: Internal Medicine [place] Start: 03-08-2022 Refill Akin obregon MD Work Phone: Internal Medicine [place] Start: 02-28-2022 Refill Akin obregon MD Work Phone: Internal Medicine [place] Comment on above: Refill Request Start: 02-17-2022 Refill Akin obregon MD Work Phone: Internal Medicine [place] Comment on above: Medication Request; Refill Request Start: 01-17-2022 Refill Akin obregon MD Work Phone: Internal Medicine [place] Comment on above: Refill Request Start: 01-16-2022 Refill Akin obregon MD Work Phone: Family Medicine [place] Comment on above: Refill Request Start: 01-12-2022 Refill Akin obregon MD Work Phone: Internal Medicine [place] Comment on above: Refill Request Procedures Date Procedure Procedure Detail Performing Clinician Start: 09-04-2024 Gastric emptying imaging study Cecilia Phillips Her fragoso ENGINE MANAGER.[employer] PLANT TECHNICIAN Work Phone: Start: 08-05-2024 Us abdominal real time w/image limited Cecilia Jacqueline Bridger ENGINE MANAGER.[employer] PLANT TECHNICIAN Work Phone: Start: 08-05-2024 Us pelvic nonobstetric real-time image complete Ev Huma ENGINE MANAGER.[employer]ASS PLANT TECHNICIAN Work Phone: Start: 08-04-2024 Ecg routine ecg w/least 12 lds i&r only [facility] Provider Start: 08-01-2024 Radiologic exam chest 2 views Cheyenne Cleav er ENGINE MANAGER.[employer]ASS PLANT TECHNICIAN Work Phone: Start: 05-09-2024 Radiologic exam esophagus single contrast study Cheyenne Jinr ENGINE MANAGER.[employer] PLANT TECHNICIAN Work Phone: Start: 05-08-2024 Esophagogastroduodenoscopy transoral diagnostic Amanda Powers ENGINE MANAGER.[employer] PLANT TECHNICIAN Work Phone: Start: 04-10-2024 Mri brain brain stem w/o w/contrast material Eduardo Holden MD Work Phone: Start: 03-04-2024 Adult depression screening assessment Akin Elliott MD Work Phone: Start: 08-10-2023 Radiologic exam chest 2 views Cecilia Phillips Danielle garcia ENGINE MANAGER.BIOMASS PLANT TECHNICIAN Work Phone: Start: 08-09-2023 Radionuclide whole body bone study Dr. Chris Elliott Work Phone: Start: 08-07-2023 MRI of cervical spine Dr. Akin Elliott Work Phone: Start: 08-07-2023 MRI of lumbar spine with contrast Dr. Alexa Elliott Work Phone: Start: 08-07-2023 MRI of thoracic spine with contrast Dr. Akin Elliott Work Phone: Start: 07-13-2023 X-ray of cervical spine Dr. Akin obregon Work Phone: Start: 07-13-2023 Radiography of thoracic spine Dr. Akin huang Work Phone: Start: 07-13-2023 X-ray of lumbar spine, two or three views Dr. Akin Elliott Work Phone: Start: 06-28-2023 Colonoscopy Akin Elliott MD Work Phone: Start: 05-25-2023 Computed tomography of abdomen and pelvis with intravenous contrast Start: 03-16-2023 Lipid 1996 panel - Serum or Plasma Harriett Alejo MD Work Phone: Start: 01-28-2023 Plain chest X-ray Start: 03-24-2022 Radex spine cervical 2 or 3 views Carlee Tyler APRN.MANAGER WIND Work Phone: Start: 03-24-2022 Adult depression screening assessment Carlee Tyler APRN.MANAGER WIND Work Phone: Start: 07-09-2019 Adult depression screening assessment Akin Elliott MD Work Phone: Start: 08-28-2018 Colonoscopy Akin Elliott MD Work Phone: Start: 05-01-2018 Mammography Akin Elliott MD Work Phone: Plan of Treatment Date Care Activity Detail Author Start: 06-28-2033 Colonoscopy Colonoscopy [facility] Start: 06-28-2033 Colorectal Cancer Screening Colorectal Cancer Screening [facility] Start: 06-28-2033 Screening for malignant neoplasm of colon [facility] Start: 05-24-2033 Urine microalbumin profile DTaP,Tdap,Td Vaccine (3 - Td or Tdap) [facility] Start: 08-01-2029 Screening for malignant neoplasm of cervix Cervical Cancer Screening [facility] Start: 08-28-2028 Colonoscopy COLONOSCOPY [facility] Start: 08-28-2028 COLORECTAL CANCER SCREENING COLORECTAL CANCER SCREENING [facility] Start: 06-28-2028 Screening for malignant neoplasm of colon [facility] Start: 03-16-2028 Lipid 1996 panel - Serum or Plasma Lipid Screening [facility] Start: 03-16-2028 Lipid panel Lipid Screening [facility] Start: 03-16-2028 LIPID SCREEN LIPID SCREEN [facility] Start: 08-13-2027 Diabetes Screening Diabetes Screening [facility] Start: 08-04-2027 Diabetes Screening Diabetes Screening [facility] Start: 03-24-2027 LIPID SCREEN LIPID SCREEN [facility] Start: 03-04-2027 Diabetes Screening Diabetes Screening [facility] Start: 08-10-2026 Diabetes Screening Diabetes Screening [facility] Start: 05-28-2026 Diabetes Screening Diabetes Screening [facility] Start: 05-14-2026 Screening for malignant neoplasm of breast Mammogram Screening [facility] Start: 03-16-2026 DIABETES SCREEN DIABETES SCREEN [facility] Start: 12-10-2025 LIPID SCREEN LIPID SCREEN [facility] Start: 09-15-2025 Shingrix Vaccine (2 of 2) Shingrix Vaccine (2 of 2) [facility] Comment on above: Postponed from 07/19/2023 (Declined at t his time) Start: 06-30-2025 End: 06-30-2025 Patient encounter procedure [facility] [place] Comment on above: 3 month follow up Start: 05-23-2025 Covid-19 Vaccine () Covid-19 Vaccine () [facility] Comment on above: Postponed from 05/11/2024 (Declined at t his time) Start: 05-23-2025 Covid-19 Vaccine () Covid-19 Vaccine () [facility] Comment on above: Postponed from 05/11/2024 (Declined at t his time) Start: 05-15-2025 End: 05-15-2025 Patient encounter procedure 05/15/2025 12:20 PM EDT Office Visit [facility] [place] [address] [place] [address] Cecilia Sparks, ENGINE MANAGER.BIOMASS PLANT TECHNICIAN [address] [place] [address] Follow Up--Viral URI. Prednisone completed. Not feeling any better. Continues tohave sinus congestion, post-nasal drip. Afebrile. [facility] [place] Comment on above: Follow Up--Viral URI. Prednisone complet ed. Not feeling any better. Continues tohave sinus congestion, post-nasal drip. Afebrile. Start: 05-14-2025 End: 05-14-2025 Patient encounter procedure 05/14/2025 1:30 PM EDT Appointment Mammogram [address] [place] [address] : Encounter for screening mammogram for breast cancer [Z12.31] Mammogram Comment on above: : Encounter for screening mammogram for breast cancer [Z12.31] Start: 05-11-2025 Influenza vaccination Influenza Vaccine (#1) [facility] Start: 03-31-2025 End: 03-31-2025 Patient encounter procedure [facility] [place] Comment on above: 3 month follow up Start: 03-24-2025 DIABETES SCREEN DIABETES SCREEN [facility] Start: 03-15-2025 Pneumococcal Vaccine: 50+ (3 of 3 - PCV20 or PCV21) Pneumococcal Vaccine: 50+ (3 of 3 - PCV20 or PCV21) [facility] Comment on above: Postponed from 06/20/2020 (Declined at t his time) Start: 03-04-2025 Anxiety Screening Anxiety Screening [facility] Start: 03-04-2025 Depression Screening Depression Screening [facility] Start: 01-02-2025 End: 01-02-2025 Patient encounter procedure 01/02/2025 11:00 AM EDT Office Visit [facility] [place] [address] [place] [address] Akin Elliott MD [address] [place] [address] 3 month follow up [facility] [place] Comment on above: 3 month follow up Start: 12-26-2024 End: 12-26-2024 Patient encounter procedure 12/26/2024 11:00 AM EDT Office Visit [facility] [place] [address] [place] [address] Akin Elliott MD [address] [place] [address] 3 month follow up [facility] [place] Comment on above: 3 month follow up Start: 09-15-2024 End: 09-15-2024 Patient encounter procedure 09/15/2024 1:00 PM EST Office Visit [facility] [place] [address] [facility] [place] [address] kAin Elliott MD [address] [place] [place] [address] physical (6 mon f/u) Internal Medicine [place] Comment on above: physical (6 mon f/u) Start: 09-04-2024 End: 09-04-2024 Patient encounter procedure 09/04/2024 7:30 AM EST Appointment Nuclear Medicine [address] [place] [address] Nausea and vomiting, unspecified vomiting type [R11.2] Nuclear Medicine Comment on above: Nausea and vomiting, unspecified vomitin g type [R11.2] Start: 08-28-2024 End: 08-28-2024 Patient encounter procedure 08/28/2024 2:00 PM EST Office Visit Internal Medicine [place] [address] [place] [address] Nirav Rivera MD [address] [facility] [place] [address] [facility] ER f/u 08/25/24 for chest pain. See TE 08/27/24. Internal Medicine [place] Comment on above: [facility] ER f/u 08/25/24 for chest pain. See TE 08/27/24. Start: 08-14-2024 End: 08-14-2024 Patient encounter procedure 08/14/2024 12:20 PM EST Office Visit Internal Medicine [place] [address] [place] [address] Cecilia Sparks, ENGINE MANAGER.[employer] TECHNICIAN [address] [place] [address] Follow up per SD Internal Medicine [place] Comment on above: Follow up per [place] Start: 08-13-2024 End: 11-12-2024 Comprehensive metabolic 2000 panel - Serum or Plasma COMPREHENSIVE METABOLIC PANEL Lab Routine Elevated LFTs Expected: 08/13/2024 (Approximate), Expires: 11/12/2024 [facility] Work Phone: Comment on above: Expected: 08/13/2024 (Approximate), Expi res: 11/12/2024 Start: 08-05-2024 End: 11-04-2024 Acute hepatitis 2000 panel - Serum [facility] Work Phone: Comment on above: Expected: 08/05/2024, Expires: Start: 08-05-2024 End: 11-04-2024 Amylase [Enzymatic activity/volume] in Serum or Plasma [facility] Comment on above: Expected: 08/05/2024, Expires: Start: 08-05-2024 End: 11-04-2024 Chronic hepatitis differentiation between hepatitis B and C virus panel - Serum or Plasma [facility] Comment on above: Expected: 08/05/2024, Expires: Start: 08-05-2024 End: 11-04-2024 Ferritin [Mass/volume] in Serum or Plasma [facility] Comment on above: Expected: 08/05/2024, Expires: Start: 08-05-2024 End: 11-04-2024 Iron and Iron binding capacity panel - Serum or Plasma [facility] Comment on above: Expected: 08/05/2024, Expires: Start: 08-05-2024 End: 11-04-2024 Lipase [Enzymatic activity/volume] in Serum or Plasma [facility] Comment on above: Expected: 08/05/2024, Expires: Start: 08-05-2024 End: 08-05-2024 Manual pelvic examination 08/05/2024 1:30 PM EST Procedure OB/Gynecology [address] [place] [place] [address] Remote, Evaluation Assistant [employer] [address] [place] [address] Pelvic pain in female [R10.2] OB/Gynecology Comment on above: Pelvic pain in female [R10.2] Start: 08-01-2024 End: 08-01-2025 US Pelvis PELVIC US [facility] Anc Imaging Routine Pelvic pain in female Expected: 08/01/2024, Expires: 08/01/2025 [facility] Comment on above: Expected: 08/01/2024, Expires: Start: 08-01-2024 End: 08-01-2024 Patient encounter procedure 08/01/2024 1:30 PM EST Office Visit OB/Gynecology [address] [place] [address] Ev Finn, ENGINE MANAGER.[employer] TECHNICIAN [address] [place] [address] Rescheduled from 06/27 OB/Gynecology Comment on above: Rescheduled from 06/27 Start: 07-17-2024 End: 07-17-2024 Patient encounter procedure 07/17/2024 10:45 AM EST Office Visit [facility] [address] [place] [place] [address] Dee Dee Roca APRN.[employer] TECHNICIAN [address] [facility] [place] [address] 3 month follow up in office [facility] Comment on above: 3 month follow up in office Start: 06-27-2024 End: 06-27-2024 Patient encounter procedure 06/27/2024 1:00 PM EDT Office Visit OB/Gynecology [address] [place] [address] HaLoretta rondon APRN.[employer] TECHNICIAN [address] [place] [address] New patient OB/Gynecology Comment on above: New patient Start: 06-13-2024 End: 06-13-2024 Follow-up encounter 06/13/2024 11:45 AM EDT [facility] [address] [place] [address] Dee Dee Roca APRN.[employer] TECHNICIAN [address] [place] [address] 2nd MBB follow up [facility] Comment on above: 2nd MBB follow up Start: 06-11-2024 End: 06-11-2024 ambulatory 06/11/2024 1:10 PM EDT Procedure [facility] [address] [address] Krzysztof Chan MD [address] [place] [address] Bilateral MBB at T9-10 and T10-11 w fluoro (2 of 2) [facility] Comment on above: Bilateral MBB at T9-10 and T10-11 w fluo ro (2 of 2) Start: 06-05-2024 End: 06-05-2024 Follow-up encounter 06/05/2024 1:15 PM EDT [facility] [address] [place] [address] Dee Dee Roca APRN.[employer] TECHNICIAN [address] [place] [address] 1st MBB follow up [facility] Comment on above: 1st MBB follow up Start: 05-29-2024 End: 05-29-2024 ambulatory 05/29/2024 2:10 PM EDT Procedure [facility] [address] [place] [address] Krzysztof Chan MD [address] [place] [address] Bilateral MBB at T9-10 and T10-11 w fluoro (1 of 2) [facility] Comment on above: Bilateral MBB at T9-10 and T10-11 w fluo ro (1 of 2) Start: 05-23-2024 End: 05-23-2024 Patient encounter procedure 05/23/2024 11:00 AM EDT Office Visit Internal Medicine [place] [address] [place] [address] Akin Elliott MD [address] [place] [address] 3 month f/u Internal Medicine [place] Comment on above: 3 month f/u Start: 05-19-2024 End: 05-19-2024 Patient encounter procedure 05/19/2024 2:00 PM EDT Office Visit General Surgery [address] [facility] [place] [address] Amanda Powers APRN.[employer] TECHNICIAN [address] [facility] [place] [address] 05-07 EGD follow up General Surgery Comment on above: 05-07 EGD follow up Start: 05-16-2024 End: 05-16-2024 Patient encounter procedure 05/16/2024 1:30 PM EDT Office Visit General Surgery [address] [facility] [place] [place] [address] Amanda Powers, ENGINE MANAGER.[employer] PL[employer] TECHNICIAN [address] [facility] [place] [address] 05-07 EGD follow up General Surgery Comment on above: 05-07 EGD follow up Start: 05-11-2024 Covid-19 Vaccine ( season) Covid-19 Vaccine ( season) [facility] Start: 05-11-2024 Influenza vaccination Influenza Vaccine (#1) [facility] Start: 05-09-2024 End: 05-09-2024 Patient encounter procedure 05/09/2024 9:00 AM EDT Appointment Radiology [address] [place] [address] Pharyngeal dysphagia [R13.13] Radiology Comment on above: Pharyngeal dysphagia [R13.13] Start: 05-08-2024 End: 05-08-2024 Patient encounter procedure 05/08/2024 2:00 PM EDT Appointment Ambulatory Surgery [address] [place] [address] Jayjay Field MD [address] [place] [address] Gastroesophageal reflux disease, unspecified whether esophagitis present [K21.9]; Dysphagia, unspecified type [R13.10] Ambulatory Surgery Comment on above: Gastroesophageal reflux disease, unspeci fied whether esophagitis present [K21.9]; Dysphagia, unspecified type [R13.10] Start: 05-02-2024 End: 05-02-2024 Patient encounter procedure Cat Scan Comment on above: Left lower quadrant abdominal pain [R10. 32] Start: 04-23-2024 End: 04-23-2024 Patient encounter procedure General Surgery Comment on above: Gastroesophageal reflux disease, unspeci fied whether esophagitis present [K21.9] EGD consultation Start: 04-17-2024 End: 04-17-2024 Patient encounter procedure 04/17/2024 11:00 AM EDT Office Visit [facility] [address] [place] [address] Krzysztof Chan MD [address] [facility] [address] [place] [address] severe back and neck pain [facility] Comment on above: severe back and neck pain Start: 04-10-2024 End: 04-10-2024 Patient encounter procedure 04/10/2024 11:20 AM EDT Appointment Radiology [address] [place] [address] Intractable chronic migraine without aura and without status migrainosus [G43.71... Radiology Comment on above: Intractable chronic migraine without aur a and without status migrainosus [G43.71... Start: 03-31-2024 End: 03-31-2024 Patient encounter procedure 03/31/2024 1:45 PM EDT Appointment Radiology [address] [place] [address] Pharyngeal dysphagia [R13.13] Radiology Comment on above: Pharyngeal dysphagia [R13.13] Start: 03-19-2024 End: 06-18-2024 CBC W Auto Differential panel - Blood COMPLETE BLOOD COUNT AND DIFFERENTIAL Lab Routine Thyroid enlarged Expected: 03/19/2024, Expires: 06/18/2024 [facility] Comment on above: Expected: 03/19/2024, Expires: Start: 03-19-2024 End: 06-18-2024 THYROID PEROXIDASE ANTIBODY THYROID PEROXIDASE ANTIBODY Lab Routine Thyroid enlarged Expected: 03/19/2024, Expires: 06/18/2024 [facility] Comment on above: Expected: 03/19/2024, Expires: Start: 03-19-2024 End: 06-18-2024 Thyrotropin [Units/volume] in Serum or Plasma THYROID STIMULATING HORMONE Lab Routine Thyroid enlarged Expected: 03/19/2024, Expires: 06/18/2024 [facility] Comment on above: Expected: 03/19/2024, Expires: Start: 03-19-2024 End: 06-18-2024 Thyroxine (T4) free [Mass/volume] in Serum or Plasma T4 FREE/FREE THYROXINE Lab Routine Thyroid enlarged Expected: 03/19/2024, Expires: 06/18/2024 [facility] Comment on above: Expected: 03/19/2024, Expires: Start: 03-19-2024 End: 06-18-2024 Triiodothyronine (T3) Free [Mass/volume] in Serum or Plasma T3, FREE Lab Routine Thyroid enlarged Expected: 03/19/2024, Expires: 06/18/2024 [facility] Comment on above: Expected: 03/19/2024, Expires: 4 Start: 03-19-2024 End: 03-19-2024 Patient encounter procedure 03/19/2024 1:00 PM EDT Office Visit Internal Medicine [place] [address] [place] [address] Cheyenne Gilbert APRN.[employer] TECHNICIAN [address] [place] [address] lumps on throat, trouble swallowing. see TE Internal Medicine [place] Comment on above: lumps on throat, trouble swallowing. s ee TE Start: 03-16-2024 COVID-19 VACCINE (#1) COVID-19 VACCINE (#1) [facility] Comment on above: Postponed from 01/11/1961 (Declined at t his time) Start: 03-16-2024 SHINGRIX VACCINE (1 of 2) SHINGRIX VACCINE (1 of 2) [facility] Comment on above: Postponed from 2012 (Declined at t his time) Start: 03-16-2024 Urine microalbumin profile DTAP,TDAP,TD (2 - Td or Tdap) [facility] Comment on above: Postponed from 05/03/2022 (Declined at t his time) Start: 03-04-2024 End: 06-03-2024 25-hydroxyvitamin D3 [Mass/volume] in Serum or Plasma [facility] Comment on above: Expected: 03/04/2024, Expires: 4 Start: 03-04-2024 End: 06-03-2024 CBC W Auto Differential panel - Blood [facility] Work Phone: Comment on above: Expected: 03/04/2024, Expires: 4 Start: 03-04-2024 End: 06-03-2024 Cobalamin (Vitamin B12) [Mass/volume] in Serum or Plasma [facility] Comment on above: Expected: 03/04/2024, Expires: 4 Start: 03-04-2024 End: 06-03-2024 Comprehensive metabolic 2000 panel - Serum or Plasma [facility] Comment on above: Expected: 03/04/2024, Expires: 4 Start: 03-04-2024 End: 06-03-2024 Hemoglobin A1c in Blood [facility] Comment on above: Expected: 03/04/2024, Expires: 4 Start: 03-04-2024 End: 03-04-2024 Patient encounter procedure 03/04/2024 2:00 PM EDT Office Visit Internal Medicine [place] [address] [place] [address] Carlee Tyler APRN.MANAGER WIND [address] [place] [address] 6 mon f/u Internal Medicine [place] Comment on above: 6 mon f/u Start: 03-04-2024 End: 06-03-2024 Thyrotropin [Units/volume] in Serum or Plasma [facility] Comment on above: Expected: 03/04/2024, Expires: 4 Start: 12-11-2023 DIABETES SCREEN DIABETES SCREEN [facility] Start: 09-10-2023 Behavioral Health Screening Behavioral Health Screening [facility] Start: 09-10-2023 Depression Assessment Depression Assessment [facility] Start: 08-09-2023 NM Whole body Bone Views [facility] Start: 08-09-2023 Radionuclide whole body bone study Bone Scan Whole Body [facility] Start: 07-19-2023 Shingrix Vaccine (2 of 2) Shingrix Vaccine (2 of 2) [facility] Start: 05-25-2023 Enteric precautions [facility] Start: 05-11-2023 Covid-19 Vaccine ( season) Covid-19 Vaccine ( season) [facility] Start: 05-11-2023 Influenza vaccination [facility] Start: 03-24-2023 Adult depression screening assessment DEPRESSION SCREENING [facility] Start: 03-24-2023 HEPATITIS C SCREENING HEPATITIS C SCREENING [facility] Comment on above: Postponed from 1980 (Declined at t his time) Start: 03-24-2023 HIV SCREENING HIV SCREENING [facility] Comment on above: Postponed from 1980 (Declined at t his time) Start: 03-16-2023 End: 05-16-2023 CBC W Auto Differential panel - Blood [facility] Work Phone: Comment on above: Expected: 03/16/2023, Expires: Start: 03-16-2023 End: 05-16-2023 Comprehensive metabolic 2000 panel - Serum or Plasma [facility] Work Phone: Comment on above: Expected: 03/16/2023, Expires: Start: 03-16-2023 End: 05-16-2023 LIPID PANEL, NONFASTING [facility] Work Phone: Comment on above: Expected: 03/16/2023, Expires: Start: 01-28-2023 End: 01-28-2023 [facility] Start: 11-11-2022 End: 01-11-2023 25-hydroxyvitamin D3 [Mass/volume] in Serum or Plasma VITAMIN D 25 HYDROXY Lab Routine Osteopenia, unspecified location Expected: 11/11/2022 (Approximate), Expires: 01/11/2023 [facility] Work Phone: Comment on above: Expected: 11/11/2022 (Approximate), Expi res: 01/11/2023 Start: 11-11-2022 End: 01-11-2023 CBC panel - Blood by Automated count CBC Lab Routine Encounter for long-term current use of medication Expected: 11/11/2022 (Approximate), Expires: 01/11/2023 [facility] Work Phone: Comment on above: Expected: 11/11/2022 (Approximate), Expi res: 01/11/2023 Start: 11-11-2022 End: 01-11-2023 Comprehensive metabolic 2000 panel - Serum or Plasma COMP METABOLIC PANEL Lab Routine Encounter for long-term current use of medication Expected: 11/11/2022 (Approximate), Expires: 01/11/2023 [facility] Work Phone: Comment on above: Expected: 11/11/2022 (Approximate), Expi res: 01/11/2023 Start: 11-11-2022 End: 01-11-2023 Lipid 1996 panel - Serum or Plasma LIPID PANEL BASIC Lab Routine Mixed hyperlipidemia Expected: 11/11/2022 (Approximate), Expires: 01/11/2023 [facility] Work Phone: Comment on above: Expected: 11/11/2022 (Approximate), Expi res: 01/11/2023 Start: 11-11-2022 End: 01-11-2023 Magnesium [Mass/volume] in Serum or Plasma MAGNESIUM BLD Lab Routine Encounter for long-term current use of medication Expected: 11/11/2022 (Approximate), Expires: 01/11/2023 [facility] Work Phone: Comment on above: Expected: 11/11/2022 (Approximate), Expi res: 01/11/2023 Start: 11-11-2022 End: 01-11-2023 Thyrotropin [Units/volume] in Serum or Plasma TSH BLD Lab Routine Mixed hyperlipidemia Expected: 11/11/2022 (Approximate), Expires: 01/11/2023 [facility] Work Phone: Comment on above: Expected: 11/11/2022 (Approximate), Expi res: 01/11/2023 Start: 09-11-2022 SHINGRIX VACCINE (1 of 2) SHINGRIX VACCINE (1 of 2) [facility] Comment on above: Postponed from 2012 (Insurance Cov erage) Start: 09-10-2022 DEPRESSION ASSESSMENT DEPRESSION ASSESSMENT [facility] Start: 05-11-2022 Influenza vaccination [facility] Start: 05-03-2022 Urine microalbumin profile DTAP,TDAP,TD (2 - Td or Tdap) [facility] Start: 03-31-2022 End: 05-31-2022 25-hydroxyvitamin D3 [Mass/volume] in Serum or Plasma VITAMIN D 25 HYDROXY Lab Routine Encounter for screening for osteoporosis Asymptomatic postmenopausal status Osteopenia of multiple sites Expected: 03/31/2022, Expires: 05/31/2022 [facility] Work Phone: Comment on above: Expected: 03/31/2022, Expires: Start: 03-31-2022 End: 05-31-2022 Parathyrin.intact [Mass/volume] in Serum or Plasma PTH INTACT BLD Lab Routine Encounter for screening for osteoporosis Asymptomatic postmenopausal status Osteopenia of multiple sites Expected: 03/31/2022, Expires: 05/31/2022 [facility] Work Phone: Comment on above: Expected: 03/31/2022, Expires: 2 Start: 03-24-2022 End: 05-24-2022 CBC W Auto Differential panel - Blood [facility] Work Phone: Comment on above: Expected: 03/24/2022, Expires: 2 Start: 03-24-2022 End: 05-24-2022 Comprehensive metabolic 2000 panel - Serum or Plasma [facility] Work Phone: Comment on above: Expected: 03/24/2022, Expires: 2 Start: 03-24-2022 End: 05-24-2022 LIPID PANEL, NONFASTING [facility] Work Phone: Comment on above: Expected: 03/24/2022, Expires: 2 Start: 09-10-2021 DEPRESSION ASSESSMENT DEPRESSION ASSESSMENT [facility] Start: 07-09-2020 Adult depression screening assessment DEPRESSION SCREENING [facility] Start: 06-20-2020 Pneumococcal Vaccine: 50+ (3 of 3 - PCV20 or PCV21) Pneumococcal Vaccine: 50+ (3 of 3 - PCV20 or PCV21) [facility] Start: 05-01-2019 Mammography [facility] Start: 05-01-2019 Screening for malignant neoplasm of breast Mammogram Screening [facility] Start: 07-09-2017 HPV TESTING HPV TESTING [facility] Start: 07-09-2017 PAP TESTING PAP TESTING [facility] Start: 07-09-2017 Screening for malignant neoplasm of cervix [facility] Start: 07-08-2016 FECAL OCCULT BLOOD FECAL OCCULT BLOOD [facility] Start: 07-08-2016 Screening for malignant neoplasm of colon Fecal Occult Blood [facility] Start: 2012 SHINGRIX VACCINE (1 of 2) SHINGRIX VACCINE (1 of 2) [facility] Start: 2007 COLOGUARD (FIT-DNA) COLOGUARD (FIT-DNA) [facility] Start: [address] COLONOGRAPHY [facility] Start: 2007 Screening for malignant neoplasm of colon [facility] Start: 2007 SIGMOIDOSCOPY SIGMOIDOSCOPY [facility] Start: 1980 HEPATITIS C SCREENING HEPATITIS C SCREENING [facility] Start: 1980 Hepatitis C screening Hepatitis C Screening [facility] Start: 1980 HIV SCREENING HIV SCREENING [facility] Start: 1980 HIV screening HIV Screening [facility] Start: 1967 COVID-19 VACCINE (#1) COVID-19 VACCINE (#1) [facility] Start: 1967 COVID-19 VACCINE (1) COVID-19 VACCINE (1) [facility] Start: 01-11-1963 COVID-19 VACCINE (#1) COVID-19 VACCINE (#1) [facility] Bacteria identified in Unspecified specimen by Respiratory culture RESP CULTURE + STAIN Microbiology Routine Subacute sinusitis, unspecified location Acute cough Ordered: 08/16/2023 [facility] Work Phone: Comment on above: Ordered: 08/16/2023 Clostridioides diffi cile DNA [Presence] in Unspecified specimen by HALEY with probe detection [facility] End: 06-18-2024 COLONOSCOPY DIAGNOSTIC COLONOSCOPY DIAGNOSTIC Endoscopy Routine Diarrhea, unspecified type 1 Occurrences starting 06/18/2023 until 06/18/2024 [facility] Work Phone: Comment on above: 1 Occurrences starting 06/18/2023 until 06/18/2024 End: 09-13-2025 CT Abdomen and Pelvis W contrast IV CT ABD/PEL W IVCON Radiology STAT Generalized abdominal pain Intractable vomiting 1 Occurrences starting 08/14/2024 until 09/13/2025 [facility] Work Phone: Comment on above: 1 Occurrences starting 08/14/2024 until 09/13/2025 End: 05-23-2025 CT Abdomen and Pelvis WO contrast CT ABD/PEL WO IVCON Radiology Routine Left lower quadrant abdominal pain 1 Occurrences starting 04/23/2024 until 05/23/2025 [facility] Work Phone: Comment on above: 1 Occurrences starting 04/23/2024 until 05/23/2025 CT Abdomen and Pelvi s WO contrast CT ABD/PEL WO IVCON Radiology Routine Left lower quadrant abdominal pain 05/02/2024 3:04 PM EDT [facility] Work Phone: End: 08-31-2025 DBT Breast - bilateral screening JENNY SCREENING W [place] Radiology Routine Encounter for gynecological examination (general) (routine) without abnormal findings Encounter for screening mammogram for breast cancer 1 Occurrences starting 08/01/2024 until 08/31/2025 [facility] Work Phone: Comment on above: 1 Occurrences starting 08/01/2024 until 08/31/2025 End: 02-01-2026 DBT Breast - bilateral screening JENNY SCREENING [place] Radiology Routine Encounter for screening mammogram for breast cancer 1 Occurrences starting 01/02/2025 until 02/01/2026 [facility] Work Phone: Comment on above: 1 Occurrences starting 01/02/2025 until 02/01/2026 End: 06-03-2026 DBT Breast - bilateral screening JENNY SCREENING [place] Radiology Routine Encounter for screening mammogram for breast cancer 1 Occurrences starting 05/04/2025 until 06/03/2026 [facility] Work Phone: Comment on above: 1 Occurrences starting 05/04/2025 until 06/03/2026 DBT Breast - bilater al screening JENNY SCREENING [facility] [place] Radiology Routine Encounter for screening mammogram for breast cancer 05/14/2025 1:44 PM EDT [facility] Work Phone: DXA Bone [Mass/Area] Bone density [facility] End: 04-30-2023 Dxa bone density study 1/> sites axial skel DXA-AXIAL SKELETON Radiology Routine Encounter for screening for osteoporosis Asymptomatic postmenopausal status Osteopenia of multiple sites 1 Occurrences starting 03/31/2022 until 04/30/2023 [facility] Work Phone: Comment on above: 1 Occurrences starting 03/31/2022 until 04/30/2023 ECG COMPLETE [facility] Work Phone: Comment on above: Ordered: 08/04/2024 End: 04-23-2025 EGD DIAGNOSTIC EGD DIAGNOSTIC Endoscopy Routine Gastroesophageal reflux disease, unspecified whether esophagitis present Dysphagia, unspecified type 1 Occurrences starting 04/23/2024 until 04/23/2025 [facility] Comment on above: 1 Occurrences starting 04/23/2024 until 04/23/2025 Gastrointestinal pathogens panel - Stool by HALEY with probe detection [facility] End: 03-08-2024 JENNY SCREENING JENNY SCREENING Radiology Routine Encounter for screening mammogram for breast cancer 1 Occurrences starting 02/07/2023 until 03/08/2024 [facility] Work Phone: Comment on above: 1 Occurrences starting 02/07/2023 until 03/08/2024 End: 02-14-2025 MG Breast Screening JENNY SCREENING Radiology Routine Encounter for screening mammogram for breast cancer 1 Occurrences starting 01/16/2024 until 02/14/2025 [facility] Work Phone: Comment on above: 1 Occurrences starting 01/16/2024 until 02/14/2025 End: 11-27-2024 MR Brain WO and W contrast IV MRI BRAIN WO/W IVCON Radiology Routine Intractable chronic migraine without aura and without status migrainosus Medication overuse headache Intractable chronic post-traumatic headache 1 Occurrences starting 10/29/2023 until 11/27/2024 [facility] Work Phone: Comment on above: 1 Occurrences starting 10/29/2023 until 11/27/2024 MR Cervical spine [facility] End: 09-14-2025 NM Stomach Views for gastric emptying solid phase W radionuclide PO NM GASTRIC EMPTYING SOLID Radiology Routine Nausea and vomiting, unspecified vomiting type 1 Occurrences starting 08/15/2024 until 09/14/2025 [facility] Work Phone: Comment on above: 1 Occurrences starting 08/15/2024 until 09/14/2025 NM Whole body Bone Views [facility] PAP TEST PAP TEST Lab Rou madelin Encounter for gynecological examination (general) (routine) without abnormal findings Encounter for screening for human papillomavirus (HPV) Pap smear for cervical cancer screening 08/01/2024 2:16 PM EST [facility] Patient Education [facility] Work Phone: Patient referral [facility] Work Phone: [employer] COVI D-19 VACCINE, AGE 12+ YR (XIE TOP) [employer] COVID-19 VACCINE, AGE 12+ YR (XIE TOP) Immunization/Injection Routine Encounter for immunization 1 Occurrences starting 03/24/2022 [facility] Work Phone: Comment on above: 1 Occurrences starting 03/24/2022 [facility] spine thoracic 3 views XR THORACIC GENERAL 3V AP/LAT/SWIMMERS Radiology Routine Other chronic back pain Cervicalgia 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 Cervicothoracic disc displacement 03/24/2022 12:21 PM EDT [facility] Work Phone: End: 04-07-2023 Screening mammography bi 2-view breast inc cad JENNY SCREENING Radiology Routine Encounter for screening mammogram for breast cancer 1 Occurrences starting 03/08/2022 until 04/07/2023 [facility] Work Phone: Comment on above: 1 Occurrences starting 03/08/2022 until 04/07/2023 SURGICAL PATHOLOGY [facility] Work Phone: Comment on above: Release Upon Ordering for 1 Occurrences starting 05/08/2024, 1 completed End: 04-18-2025 US Thyroid gland US THYROID/PARATHYROID Radiology Routine Pharyngeal dysphagia 1 Occurrences starting 03/19/2024 until 04/18/2025 [facility] Comment on above: 1 Occurrences starting 03/19/2024 until 04/18/2025 US Thyroid gland US THYROID/PARA THYROID Radiology Routine Pharyngeal dysphagia 03/31/2024 1:48 PM EDT [facility] Work Phone: End: 04-18-2025 XR Esophagus Views W contrast PO XR ESOPHAGRAM Radiology Routine Pharyngeal dysphagia 1 Occurrences starting 03/19/2024 until 04/18/2025 [facility] Work Phone: Comment on above: 1 Occurrences starting 03/19/2024 until 04/18/2025 [facility] Immunizations Immunization Date Immunization Notes Care Provider Ana Rosa camejo 05-23-2024 influenza, seasonal, injectable Amanda Powers ENGINE MANAGER.[employer] PL[employer] TECHNICIAN Work Phone: [facility] 05-23-2024 influenza virus vaccine, unspecified formulation Cecilia Sparks ENGINE MANAGER.BIOMASS PLANT TECHNICIAN Work Phone: [facility] 05-24-2023 influenza virus vaccine, unspecified formulation Harriett Alejo MD Work Phone: [facility] 05-24-2023 influenza, injectabl e, quadrivalent, preservative free Harriett Alejo MD Work Phone: [facility] Work Phone: 05-24-2023 respiratory syncytia l virus (RSV) vaccine, bivalent (ABRYSVO) Harriett Alejo MD Work Phone: [facility] 05-24-2023 tetanus toxoid, redu eden diphtheria toxoid, and acellular pertussis vaccine, adsorbed Harriett Alejo MD Work Phone: [facility] 05-24-2023 zoster vaccine recombinant Harriett Alejo MD Work Phone: [facility] 07-09-2019 influenza, injectabl e, quadrivalent, contains preservative Akin Elliott MD Work Phone: [facility] Work Phone: 06-26-2018 influenza, injectabl e, quadrivalent, preservative free [facility] 06-26-2018 influenza, seasonal, injectable [facility] 06-17-2018 influenza, seasonal, injectable Akin Elliott MD Work Phone: [facility] Work Phone: 06-20-2015 pneumococcal conjuga te vaccine, 13 valent Akin Elliott MD Work Phone: [facility] 06-13-2013 influenza virus vaccine, unspecified formulation Akin Elliott MD Work Phone: [facility] 04-16-2013 pneumococcal polysaccharide vaccine, 23 valent Akin Elliott MD Work Phone: [facility] 08-09-2012 influenza virus vaccine, unspecified formulation Akin Elliott MD Work Phone: [facility] 05-03-2012 tetanus toxoid, redu eden diphtheria toxoid, and acellular pertussis vaccine, adsorbed Akin Elliott MD Work Phone: [facility] 07-05-2010 influenza virus vaccine, unspecified formulation Akin Elliott MD Work Phone: [facility] 08-23-2007 influenza virus vaccine, unspecified formulation Akin Elliott MD Work Phone: [facility] Payers Date Payer Category Payer Self-pay [id number] 2024 Private Health Insurance [id number] 2024 Private Health Insurance [facility] [id number] 2022 Unknown [id number] 2021 Unknown [employer] PPO OOS [id number] 2021-Present [phone] [id number] [place] [address] PPO [id number] 2021 Unknown [id number] Unknown [facility] [id number] Unknown [id number] 64 Unknown [id number] 64 Unknown [id number] 64 Unknown [id number] 64 Unknown [id number] 64 Unknown [id number] 64 Unknown [id number] 64 Social History Date Type Detail Facility Start: 07-22-2015 End: 05-23-2024 Tobacco smoking status NHIS Ex-smoker [facility] End: 07-21-2015 History of tobacco use Current smoker [facility] End: 07-21-2015 History of tobacco use Cigarette Smoker [facility] Start: 07-22-2015 End: 03-16-2023 Cigarettes smoked current (pack per day) - Reported 0.5 [facility] Work Phone: Start: 07-22-2015 End: 05-23-2024 Tobacco use and exposure Smokeless tobacco non-user [facility] Start: 08-04-2019 End: 08-14-2024 Alcohol intake Current drinker of alcohol (finding) [facility] Start: 10-19-2008 History SDOH Alcohol Comment rarely [facility] Start: 08-12-2009 End: 07-26-2022 Tobacco Comment was smoking less than one half pack; had cut back until able to quit 08/10/2009 [facility] Start: 1960 Sex Assigned At Not on file [facility] Start: 01-02-2022 End: 07-26-2022 Exposure to SARS-CoV-2 (event) Not sure [facility] Start: 03-16-2023 End: 04-17-2024 Tobacco use panel [facility] Work Phone: Start: 08-11-2012 Adult Depression Screening Assessment 2 [facility] Work Phone: Start: 01-28-2023 End: 07-13-2023 Tobacco smoking status SDIS Unknown if ever smoked [facility] Start: 05-09-2019 None [facility] Start: 07-27-2018 Spouse/ Signif icant Other [facility] Start: 07-29-2018 Non-smoker [facility] Start: 1960 Sex Assigned At Female [facility] Start: 09-15-2024 End: 05-08-2025 Alcoholic beverage intake Ex-drinker (finding) [facility] Start: 09-15-2024 Alcohol Comment Quit early 2023 [facility] Functional Status Date Assessment Result Facility 08-13-2014 Are you deaf, or do you have serious difficulty hearing No 08/13/2014 10:33 AM Nannette Gaytan MA No [facility] 08-13-2014 Are you blind, or do you have serious difficulty seeing, even when wearing glasses No 08/13/2014 10:33 AM Nannette Gaytan MA No [facility] 08-13-2014 Do you have serious difficulty walking or climbing stairs No 08/13/2014 10:33 AM Nannette Gaytan MA No [facility] 08-13-2014 Do you have difficul ty dressing or bathing No 08/13/2014 10:33 AM Nannette Gaytan MA No [facility] 08-13-2014 Because of a physica l, mental, or emotional condition, do you have difficulty doing errands alone such as visiting a physician's office or shopping No 08/13/2014 10:33 AM Nannette Gaytan MA [facility] Mental Status Date Assessment Result Facility 01-28-2023 Cognitive function Level Of Cons ciousness Awake;Alert;Appropriate [facility] Work Phone: 08-13-2014 Because of a physica l, mental, or emotional condition, do you have serious difficulty concentrating, remembering, or making decisions No 08/13/2014 10:33 AM Nannette Gaytan MA No [facility] Clinical Notes 04-03-2017 to 07-07-2025 Telephone Encounter - [place] Cabrera RN - 05/20/2025 5:16 PM EDTTelephone Encounter - [place] Cabrera RN - 05/20/2025 5:16 PM EDTTelephone Encounter - Joi Beal MD - 05/20/2025 4:53 PM EDT Note Date & Type Note Facility 07-07-2025 Note HNO ID: [id number] Author: CECILIA SPARKS APRN.BIOMASS PLANT TECHNICIAN Service: ? Author Type: Nurse Practitioner Type: Progress Notes Filed: 07/07/2025 14:05 Note Text: CC: No chief complaint on file. Recording using [employer] software for draft documentation of the visit was discussed with the patient/authorized sales representative advertising; all questions welcomed and answered. Patient/authorized sales representative advertising agreed to proceed HPI The patient is a 64-year-old female with a history of asthma, chronic nausea, and migraines, presenting for evaluation of URI symptoms, fatigue, and myalgias. URI Symptoms: - Onset of symptoms 2 days ago. - Reports rhinorrhea, lacrimation, pharyngitis, and cough. - Year-round allergies; uses Flonase and oral antihistamines. - No prior evaluation by an industrial boilermaker or ENT specialist. - Onset 2 days ago. - Describes feeling tired all the time and wanting to sleep constantly. - Myalgias in the arm, using Biofreeze for relief. - Decreased appetite; only consumed half an apple and half a cup of coffee today. - Recent sinus infection, treated with Augmentin last month and symptoms completely resolved Asthma: - Uses albuterol inhaler PRN. Chronic Nausea: - Managed with Phenergan. Migraines: - History of migraines since 6th grade. - Severe migraine last night, persisting into today. - Managed with Emerge and topiramate. - No migraine medication available last night; took medication this morning. Back Pain: - Severe back pain at times, requiring sitting down for relief. - Uses cyclobenzaprine TID PRN for muscle spasms. Diarrhea: - Recent recurrence of diarrhea; previously well-controlled. - Requests refill of antidiarrheal medication. Review of Systems See HPI PAST MEDICAL HISTORY Diagnosis Date Bee sting allergy 04/28/2008 Concussion with no loss of consciousness Displacement of intervertebral disc, site unspecified, without myelopathy 11/30/2006 [facility] claim Disturbance of skin sensation Esophageal reflux Headaches migraines Hypercholesteremia Mental disorder anxiety Multiple rib fractures 2012 Fell down stairs to basement-- 5th and 6th rib fractures and left great toe fracture Snoring Sprain of lumbosacral (joint) (ligament) Sprain of neck [facility] claim Sprain of thoracic region [facility] claim Tubular adenoma of colon 07/29/2015 Dr. Caban Variants of migraine, not elsewhere classified, without mention of intractable migraine without mention of status migrainosus PAST SURGICAL HISTORY Procedure Laterality Date CHOLECYSTECTOMY 02/26/2017 Cholecystectomy; [facility] with Dr. Alejo COLONOSCOPY FLX DX W/COLLJ SPEC WHEN PFRMD 07/29/2015 Colonoscopy COLONOSCOPY SCREENING 2019 COLONOSCOPY SCREENING 06/28/2023 repeat in 10 years, Dr. Alejo EGD 05/08/2024 ESOPHAGOGASTRODUODENOSCOPY TRANSORAL DIAGNOSTIC 07/29/2015 EGD ESOPHAGOGASTRODUODENOSCOPY TRANSORAL DIAGNOSTIC 04/05/2017 EGD PAST SURGICAL HISTORY OF bilat feet - reconstruction ALLERGIES Bee Venom Protein (Honey Bee), Morphine, Relafen [Nabumetone], Venom-Honey Bee, and Zolpidem MEDICATIONS loperamide (ANTI-DIARRHEAL) 2 mg cap(s) Take 1 capsule by mouth four times a day as needed for diarrhea. albuterol HFA (VENTOLIN HFA) 90 mcg/actuation inhaler Inhale 2 puffs as instructed every 4 hours as needed for wheezing/shortness of breath. ibuprofen (MOTRIN) 800 mg tablet Take 1 tablet by mouth every 8 hours as needed for pain. Take with food. promethazine (PHENERGAN) 25 mg tablet Take 0.5-1 tablets by mouth every 6 hours as needed. amoxicillin-clavulanate potassium (AUGMENTIN) 875-125 mg per tablet Take 1 tablet by mouth two times a day for 7 days. cyclobenzaprine (FLEXERIL) 10 mg tablet Take 1 tablet by mouth three times a day as needed for muscle spasm or pain. diclofenac, EC, (VOLTAREN) 50 mg EC tablet Take 1 tablet by mouth two times a day as needed. naratriptan (AMERGE) 2.5 mg tablet Take 1 tablet by mouth as needed. 2.5 mg at onset of headache, may repeat in 4 hours if needed pantoprazole DR (PROTONIX) 40 mg tablet Take 1 tablet by mouth two times a day before meals at 6 am and 4 pm. Take on empty stomach, 1/2 hr before meal. topiramate (TOPAMAX) 100 mg tablet TAKE 2 TABLETS TWICE A DAY IN THE MORNING AND AT BEDTIME fluticasone (FLONASE) 50 mcg/actuation nasal spray Use 2 sprays in each nostril once daily. Rinse mouth after use. EPINEPHrine (EPIPEN 2-LUAN) 0.3 mg/0.3 mL auto-injector Inject 0.3 mL intramuscularly as needed. dilTIAZem CD (CARTIA XT) 180 mg 24 hr capsule Take 1 capsule by mouth once daily. cholecalciferol (VITAMIN D3) 1,000 unit tab tablet Take 1 tablet by mouth once daily. dicyclomine (BENTYL) 10 mg capsule Take 10 mg by mouth before meals and at bedtime. ascorbic acid, vitamin C, 500 mg cap Take 1 capsule by mouth once daily. scopolamine (TRANSDERM-SCOP) patch 1.5 mg/72 hr (delivers 1 mg over 3 days) Apply 1 Patch as directed every 72 (more content not included)... [facility] 05-20-2025 Telephone encounter Note Patient returned call and given provider's message below and patient verbalized understanding. Tuyet Cabrera RN [facility] 05-20-2025 Miscellaneous Notes Patient returned call and given provider's message below and patient verbalized understanding. Tuyet Cabrera RN Unable to reach patient. Left VM to return call to office. Please read below and advise. Kimi Champion MA Sent some augmentin, if this is a bacterial infection, it should help as it is stronger than amoxi and good one for sinusitis Regards, Joi Beal MD Patient seen twice by Cecilia Sparks on 05/08/25 and 05/15/25 for an URI, cough, and sinus problems. Pt calling in follow up to call yesterday at 4 pm. Pt is not feeling any better and is asking ffor another antibiotic for at least another week. She states that Cecilia Sparks told her that since she has seen her twice for this, she would call her in another antibiotic. Pt wants provider told to either give her another antibiotic or to give her another week's worse of the one she has. Explained to pt that if this is viral, an antibiotic won't help and that some of these illnesses are lasting 3-4 weeks or more. Pt demanding that she needs another antibiotic and does not want to come back in for an appt. Patient calling she was seen in office on 05/15. Patient said she has 2 days of amoxicillin left to take and is not helping at all. She is having constant runny nose, headache, nausea, she is miserable. Patient asking if she could be put on another antibiotic? Patient said she uses [facility] pharmacy. Please advise documented in this encounter [facility] 05-20-2025 Telephone encounter Note Unable to reach patient. Left VM to return call to office. Please read below and advise. Kimi Champion MA [facility] 05-20-2025 Telephone encounter Note Sent some augmentin, if this is a bacterial infection, it should help as it is stronger than amoxi and good one for sinusitis Regards, Joi Beal MD [facility] 05-20-2025 Telephone encounter Note Patient seen twice by Cecilia Sparks on 05/08/25 and 05/15/25 for an URI, cough, and sinus problems. Pt calling in follow up to call yesterday at 4 pm. Pt is not feeling any better and is asking ffor another antibiotic for at least another week. She states that Cecilia Sparks told her that since she has seen her twice for this, she would call her in another antibiotic. Pt wants provider told to either give her another antibiotic or to give her another week's worse of the one she has. Explained to pt that if this is viral, an antibiotic won't help and that some of these illnesses are lasting 3-4 weeks or more. Pt demanding that she needs another antibiotic and does not want to come back in for an appt. [facility] 05-19-2025 Telephone encounter Note Patient calling she was seen in office on 05/15. Patient said she has 2 days of amoxicillin left to take and is not helping at all. She is having constant runny nose, headache, nausea, she is miserable. Patient asking if she could be put on another antibiotic? Patient said she uses [facility] pharmacy. Please advise [facility] 05-15-2025 Note HNO ID: [id number] Author: CECILIA SPARKS APRN.[employer]OM[employer] PL[employer] TECHNICIAN Service: ? Author Type: Nurse Practitioner Type: Progress Notes Filed: 05/15/2025 13:15 Note Text: CC: Patient presents with: Recheck: Not feeling any better HPI Recording using [employer] software for draft documentation of the visit was discussed with the patient/authorized sales representative advertising; all questions welcomed and answered. Patient/authorized sales representative advertising agreed to proceed The patient is a 64-year-old female presenting for evaluation of persistent sinus congestion, facial pain, and headache. Upper Respiratory Symptoms: - She was seen on 05/08 for three day history of URI symptoms - Treated with prednisone and Tessalon Perles. Also taking Flonase. - Persistent sore throat, ear pain, and rhinorrhea despite treatment. - Reports yellow nasal discharge. - Intermittent episodes of feeling hot and cold. - Constant headache. - Eye watering. - Facial pressure. - Ear tenderness with drainage. - non-productive cough and Shortness of Breath with exertion - Fatigue, unable to stay awake during the day. Review of Systems See HPI PAST MEDICAL HISTORY Diagnosis Date Bee sting allergy 04/28/2008 Concussion with no loss of consciousness Displacement of intervertebral disc, site unspecified, without myelopathy 11/30/2006 [facility] claim Disturbance of skin sensation Esophageal reflux Headaches migraines Hypercholesteremia Mental disorder anxiety Multiple rib fractures 2012 Fell down stairs to basement-- 5th and 6th rib fractures and left great toe fracture Snoring Sprain of lumbosacral (joint) (ligament) Sprain of neck [facility] claim Sprain of thoracic region [facility] claim Tubular adenoma of colon 07/29/2015 Dr. Caban Variants of migraine, not elsewhere classified, without mention of intractable migraine without mention of status migrainosus PAST SURGICAL HISTORY Procedure Laterality Date CHOLECYSTECTOMY 02/26/2017 Cholecystectomy; [facility] with Dr. Alejo COLONOSCOPY FLX DX W/COLLJ SPEC WHEN PFRMD 07/29/2015 Colonoscopy COLONOSCOPY SCREENING 2019 COLONOSCOPY SCREENING 06/28/2023 repeat in 10 years, Dr. Alejo EGD 05/08/2024 ESOPHAGOGASTRODUODENOSCOPY TRANSORAL DIAGNOSTIC 07/29/2015 EGD ESOPHAGOGASTRODUODENOSCOPY TRANSORAL DIAGNOSTIC 04/05/2017 EGD PAST SURGICAL HISTORY OF bilat feet - reconstruction ALLERGIES Bee Venom Protein (Honey Bee), Morphine, Relafen [Nabumetone], Venom-Honey Bee, and Zolpidem MEDICATIONS benzonatate (TESSALON PERLES) 100 mg capsule Take 1-2 capsules by mouth three times a day as needed for cough. ibuprofen (MOTRIN) 800 mg tablet Take 1 tablet by mouth every 8 hours as needed for pain. Take with food. naratriptan (AMERGE) 2.5 mg tablet Take 1 tablet by mouth as needed. 2.5 mg at onset of headache, may repeat in 4 hours if needed promethazine (PHENERGAN) 25 mg tablet Take 0.5-1 tablets by mouth every 6 hours as needed. loperamide (ANTI-DIARRHEAL) 2 mg cap(s) Take 1 capsule by mouth four times a day as needed for diarrhea. pantoprazole DR (PROTONIX) 40 mg tablet Take 1 tablet by mouth two times a day before meals at 6 am and 4 pm. Take on empty stomach, 1/2 hr before meal. topiramate (TOPAMAX) 100 mg tablet TAKE 2 TABLETS TWICE A DAY IN THE MORNING AND AT BEDTIME fluticasone (FLONASE) 50 mcg/actuation nasal spray Use 2 sprays in each nostril once daily. Rinse mouth after use. EPINEPHrine (EPIPEN 2-LUAN) 0.3 mg/0.3 mL auto-injector Inject 0.3 mL intramuscularly as needed. dilTIAZem CD (CARTIA XT) 180 mg 24 hr capsule Take 1 capsule by mouth once daily. cholecalciferol (VITAMIN D3) 1,000 unit tab tablet Take 1 tablet by mouth once daily. cyclobenzaprine (FLEXERIL) 10 mg tablet Take 1 tablet by mouth at bedtime as needed for muscle spasm or pain. albuterol HFA (VENTOLIN HFA) 90 mcg/actuation inhaler Inhale 2 puffs as instructed every 4 hours as needed for wheezing/shortness of breath. dicyclomine (BENTYL) 10 mg capsule Take 10 mg by mouth before meals and at bedtime. ascorbic acid, vitamin C, 500 mg cap Take 1 capsule by mouth once daily. scopolamine (TRANSDERM-SCOP) patch 1.5 mg/72 hr (delivers 1 mg over 3 days) Apply 1 Patch as directed every 72 hours. From [facility]. ALPRAZolam (XANAX) 0.5 mg tablet Take 0.5 mg by mouth at bedtime as needed. amoxicillin (AMOXIL) 875 mg tablet Take 1 tablet by mouth two times a day for 7 days. diclofenac, EC, (VOLTAREN) 50 mg EC tablet Take 1 tablet by mouth two times a day as needed. FAMILY HISTORY Problem Relation Age of Onset Breast Cancer Mother Diabetes Mother Heart Mother Cancer Father liver ca Diabetes Sister No Known Problems Brother No Known Problems Half-brother No Known Problems Half-brother No Known Problems Half-sister SOCIAL HISTORY[1] BP 112/63 Pulse 90 Temp 36.9 ?C (98.5 ?F) (Oral) Resp 14 Wt 63 kg (138 lb 14.2 oz) LMP 10/18/2006 SpO2 100% BMI 23.28 kg/m? (more content not included)... [facility] 05-15-2025 History of Present illness Narrative CC: Patient presents with: Recheck: Not feeling any better HPI Recording using [employer] software for draft documentation of the visit was discussed with the patient/authorized sales representative advertising; all questions welcomed and answered. Patient/authorized sales representative advertising agreed to proceed The patient is a 64-year-old female presenting for evaluation of persistent sinus congestion, facial pain, and headache. Upper Respiratory Symptoms: - She was seen on 05/08 for three day history of URI symptoms - Treated with prednisone and Tessalon Perles. Also taking Flonase. - Persistent sore throat, ear pain, and rhinorrhea despite treatment. - Reports yellow nasal discharge. - Intermittent episodes of feeling hot and cold. - Constant headache. - Eye watering. - Facial pressure. - Ear tenderness with drainage. - non-productive cough and Shortness of Breath with exertion - Fatigue, unable to stay awake during the day. Review of Systems See HPI PAST MEDICAL HISTORY Diagnosis Date Bee sting allergy 04/28/2008 Concussion with no loss of consciousness Displacement of intervertebral disc, site unspecified, without myelopathy 11/30/2006 [facility] claim Disturbance of skin sensation Esophageal reflux Headaches migraines Hypercholesteremia Mental disorder anxiety Multiple rib fractures 2012 Fell down stairs to basement-- 5th and 6th rib fractures and left great toe fracture Snoring Sprain of lumbosacral (joint) (ligament) Sprain of neck [facility] claim Sprain of thoracic region [facility] claim Tubular adenoma of colon 07/29/2015 Dr. Caban Variants of migraine, not elsewhere classified, without mention of intractable migraine without mention of status migrainosus PAST SURGICAL HISTORY Procedure Laterality Date CHOLECYSTECTOMY 02/26/2017 Cholecystectomy; [facility] with Dr. Alejo COLONOSCOPY FLX DX W/COLLJ SPEC WHEN PFRMD 07/29/2015 Colonoscopy COLONOSCOPY SCREENING 2018 COLONOSCOPY SCREENING 06/28/2023 repeat in 10 years, Dr. Alejo EGD 05/08/2024 ESOPHAGOGASTRODUODENOSCOPY TRANSORAL DIAGNOSTIC 07/29/2015 EGD ESOPHAGOGASTRODUODENOSCOPY TRANSORAL DIAGNOSTIC 04/05/2017 EGD PAST SURGICAL HISTORY OF bilat feet - reconstruction ALLERGIES Bee Venom Protein (Honey Bee), Morphine, Relafen [Nabumetone], Venom-Honey Bee, and Zolpidem MEDICATIONS benzonatate (TESSALON PERLES) 100 mg capsule Take 1-2 capsules by mouth three times a day as needed for cough. ibuprofen (MOTRIN) 800 mg tablet Take 1 tablet by mouth every 8 hours as needed for pain. Take with food. naratriptan (AMERGE) 2.5 mg tablet Take 1 tablet by mouth as needed. 2.5 mg at onset of headache, may repeat in 4 hours if needed promethazine (PHENERGAN) 25 mg tablet Take 0.5-1 tablets by mouth every 6 hours as needed. loperamide (ANTI-DIARRHEAL) 2 mg cap(s) Take 1 capsule by mouth four times a day as needed for diarrhea. pantoprazole DR (PROTONIX) 40 mg tablet Take 1 tablet by mouth two times a day before meals at 6 am and 4 pm. Take on empty stomach, 1/2 hr before meal. topiramate (TOPAMAX) 100 mg tablet TAKE 2 TABLETS TWICE A DAY IN THE MORNING AND AT BEDTIME fluticasone (FLONASE) 50 mcg/actuation nasal spray Use 2 sprays in each nostril once daily. Rinse mouth after use. EPINEPHrine (EPIPEN 2-LUAN) 0.3 mg/0.3 mL auto-injector Inject 0.3 mL intramuscularly as needed. dilTIAZem CD (CARTIA XT) 180 mg 24 hr capsule Take 1 capsule by mouth once daily. cholecalciferol (VITAMIN D3) 1,000 unit tab tablet Take 1 tablet by mouth once daily. cyclobenzaprine (FLEXERIL) 10 mg tablet Take 1 tablet by mouth at bedtime as needed for muscle spasm or pain. albuterol HFA (VENTOLIN HFA) 90 mcg/actuation inhaler Inhale 2 puffs as instructed every 4 hours as needed for wheezing/shortness of breath. dicyclomine (BENTYL) 10 mg capsule Take 10 mg by mouth before meals and at bedtime. ascorbic acid, vitamin C, 500 mg cap Take 1 capsule by mouth once daily. scopolamine (TRANSDERM-SCOP) patch 1.5 mg/72 hr (delivers 1 mg over 3 days) Apply 1 Patch as directed every 72 hours. From [facility]. ALPRAZolam (XANAX) 0.5 mg tablet Take 0.5 mg by mouth at bedtime as needed. amoxicillin (AMOXIL) 875 mg tablet Take 1 tablet by mouth two times a day for 7 days. diclofenac, EC, (VOLTAREN) 50 mg EC tablet Take 1 tablet by mouth two times a day as needed. FAMILY HISTORY Problem Relation Age of Onset Breast Cancer Mother Diabetes Mother Heart Mother Cancer Father liver ca Diabetes Sister No Known Problems Brother No Known Problems Half-brother No Known Problems Half-brother No Known Problems Half-sister SOCIAL HISTORY[1] BP 112/63 Pulse 90 Temp 36.9 C (98.5 F) (Oral) Resp 14 Wt 63 kg (138 lb 14.2 oz) LMP 10/18/2006 SpO2 100% BMI 23.28 kg/m Physical Exam Vitals reviewed. Constitutional: General: She is not in acute distress. Appearance: She is ill-appearing. She is not toxic-appearing. HENT: Head: Normocephalic and atraumatic. Right Ear: Tympanic membrane normal. Left Ear: Tympanic membrane normal. Nose: Right Sinus: Frontal sinus tenderness present. No maxillary sinus tenderness. Left Sinus: Frontal sinus tenderness present. No maxillary sinus tenderness. Mouth/Throat: Mouth: Mucous membranes are moist. Pharynx: Oropharynx is clear. Eyes: Conjunctiva/sclera: Conjunctivae normal. Cardiovascular: Rate and Rhythm: Normal rate and regular rhythm. Heart sounds: Normal heart sounds. No murmur heard. Pulmonary: Effort: Pulmonary effort is normal. Breath sounds: Normal breath sounds. No wheezing, rhonchi or rales. Lymphadenopathy: Cervical: No cervical adenopathy. Skin: General: Skin is warm and dry. Neurological: Mental Status: She is alert. Psychiatric: Mood and Affect: Mood normal. Assessment/Plan 1. Acute non-recurrent sinusitis, unspecified location: Persistent nasal congestion with yellow nasal discharge, facial pressure, and ear discomfort consistent with acute sinusitis. - Prescribed amoxicillin 1 tablet by mouth twice daily for 7 days. - Advised to increase fluid intake and rest. - Discussed continuing intranasal corticosteroid spray (Flonase) as tolerated. - Recommended to monitor for any worsening symptoms or lack of improvement. Prescription instructions reviewed with patient as applicable. Potential red flag symptoms discussed with the patient. Reviewed appropriate action plan to take if red flag symptoms occur. Patient agreeable to treatment plan. Cecilia Sparks APRN.[employer]CHNICIAN [1] Social History Tobacco Use Smoking status: Former Current packs/day: 0.00 Types: Cigarettes Quit date: 07/21/2015 Years since quittin.8 Smokeless tobacco: Never Tobacco comments: was smoking less than one half pack; had cut back until able to quit 08/10/2009 Vaping Use Vaping status: Never Used Substance Use Topics Alcohol use: Not Currently Comment: Quit early 2023 Drug use: No documented in this encounter [facility] 05-15-2025 Instructions Cecilia Sparks APRN.CNP - 05/15/2025 1:05 PM EDT - Begin Amoxicillin, one tablet twice daily for 7 days; your prescription is sent to [facility]. - Rest as much as possible and drink plenty of fluids to help loosen congestion and support recovery. - Follow-up in one week if your symptoms fail to improve or sooner if worsening documented in this encounter [facility] 05-14-2025 History of Present illness Narrative Radiology Service Progress Note PATIENT NAME: Saulo Geiger DATE OF SERVICE: May 14, 2025 TIME: 2:03 PM PATIENT IDENTITY VERIFICATION COMPLETED USING TWO (2) IDENTIFIERS: Name and Date of confirmed by patient verbally. FALL SCREENING: Has the patient had 2 falls in the last year or 1 fall with injury or currently using an Ambulatory Assistive Device (Walker, Cane, Wheelchair, Crutches, etc.)? No PATIENT GENDER DATA: Assigned female at . status: : No status: NO. PATIENT RELEVANT IMPLANT DATA REVIEWED: Not Applicable PATIENT PRESENTS WITH AN IMPLANTABLE OR ATTACHED SEWING MACHINE ATTACHMENT TESTER: No RADIOLOGY DEPARTMENT: Mammography PERIPHERAL IV DATA: Not applicable SIGNED BY: Harpreet Blackmon May 14, 2025 2:03 PM documented in this encounter [facility] 05-14-2025 Note HNO ID: [id number] Author: CASSIDY MENEZES Mammo Tech Service: ? Author Type: Manager [employer] Type: Progress Notes Filed: 05/14/2025 14:03 Note Text: Radiology Service Progress Note PATIENT NAME: Saulo Geiger DATE OF SERVICE: May 14, 2025 TIME: 2:03 PM PATIENT IDENTITY VERIFICATION COMPLETED USING TWO (2) IDENTIFIERS: Name and Date of confirmed by patient verbally. FALL SCREENING: Has the patient had 2 falls in the last year or 1 fall with injury or currently using an Ambulatory Assistive Device (Walker, Cane, Wheelchair, Crutches, etc.)? No PATIENT GENDER DATA: Assigned female at . status: : No status: NO. PATIENT RELEVANT IMPLANT DATA REVIEWED: Not Applicable PATIENT PRESENTS WITH AN IMPLANTABLE OR ATTACHED SEWING MACHINE ATTACHMENT TESTER: No RADIOLOGY DEPARTMENT: Mammography PERIPHERAL IV DATA: Not applicable SIGNED BY: Cassidy Menezes [employer] May 14, 2025 2:03 PM [facility] 05-08-2025 Note HNO ID: [id number] Author: CECILIA SPARKS APRN.[employer] TECHNICIAN Service: ? Author Type: Nurse Practitioner Type: Progress Notes Filed: 05/08/2025 12:55 Note Text: CC: Patient presents with: Cough: Cough, bilateral ear pressure, nausea, fatigue x 3-4 days HPI Recording using [employer] software for draft documentation of the visit was discussed with the patient/authorized sales representative advertising; all questions welcomed and answered. Patient/authorized sales representative advertising agreed to proceed The patient is a 64-year-old female with allergic rhinitis, presenting for evaluation of acute worsening upper respiratory symptoms. Upper Respiratory Symptoms: - Symptoms x 4 days - Describes feeling like she got hit with a semi-truck. - Rhinorrhea, pharyngitis, otalgia, cough, chills and epiphora. - Dyspnea with exertion. - Using ice water to alleviate throat dryness. - Nausea managed with a transdermal patch and oral antiemetics. - Took sinus and mucus medication from [employer], which caused nausea; discontinued use. - No antipyretics or cough suppressants used. - Denies fever, hemoptysis, or known asthma history. - No COVID-19 testing performed. - recently had similar symptoms. - Former smoker. - Uses Flonase for perennial allergic rhinitis. Review of Systems See HPI PAST MEDICAL HISTORY Diagnosis Date Bee sting allergy 04/28/2008 Concussion with no loss of consciousness Displacement of intervertebral disc, site unspecified, without myelopathy 11/30/2006 [facility] claim Disturbance of skin sensation Esophageal reflux Headaches migraines Hypercholesteremia Mental disorder anxiety Multiple rib fractures 2012 Fell down stairs to basement-- 5th and 6th rib fractures and left great toe fracture Snoring Sprain of lumbosacral (joint) (ligament) Sprain of neck [facility] claim Sprain of thoracic region [facility] claim Tubular adenoma of colon 07/29/2015 Dr. Caban Variants of migraine, not elsewhere classified, without mention of intractable migraine without mention of status migrainosus PAST SURGICAL HISTORY Procedure Laterality Date CHOLECYSTECTOMY 02/26/2017 Cholecystectomy; [facility] with Dr. Alejo COLONOSCOPY FLX DX W/COLLJ SPEC WHEN PFRMD 07/29/2015 Colonoscopy COLONOSCOPY SCREENING 2018 COLONOSCOPY SCREENING 06/28/2023 repeat in 10 years, Dr. Alejo EGD 05/08/2024 ESOPHAGOGASTRODUODENOSCOPY TRANSORAL DIAGNOSTIC 07/29/2015 EGD ESOPHAGOGASTRODUODENOSCOPY TRANSORAL DIAGNOSTIC 04/05/2017 EGD PAST SURGICAL HISTORY OF bilat feet - reconstruction ALLERGIES Bee Venom Protein (Honey Bee), Morphine, Relafen [Nabumetone], Venom-Honey Bee, and Zolpidem MEDICATIONS diclofenac, EC, (VOLTAREN) 50 mg EC tablet Take 1 tablet by mouth two times a day as needed. ibuprofen (MOTRIN) 800 mg tablet Take 1 tablet by mouth every 8 hours as needed for pain. Take with food. naratriptan (AMERGE) 2.5 mg tablet Take 1 tablet by mouth as needed. 2.5 mg at onset of headache, may repeat in 4 hours if needed promethazine (PHENERGAN) 25 mg tablet Take 0.5-1 tablets by mouth every 6 hours as needed. loperamide (ANTI-DIARRHEAL) 2 mg cap(s) Take 1 capsule by mouth four times a day as needed for diarrhea. pantoprazole DR (PROTONIX) 40 mg tablet Take 1 tablet by mouth two times a day before meals at 6 am and 4 pm. Take on empty stomach, 1/2 hr before meal. topiramate (TOPAMAX) 100 mg tablet TAKE 2 TABLETS TWICE A DAY IN THE MORNING AND AT BEDTIME fluticasone (FLONASE) 50 mcg/actuation nasal spray Use 2 sprays in each nostril once daily. Rinse mouth after use. EPINEPHrine (EPIPEN 2-LUAN) 0.3 mg/0.3 mL auto-injector Inject 0.3 mL intramuscularly as needed. dilTIAZem CD (CARTIA XT) 180 mg 24 hr capsule Take 1 capsule by mouth once daily. cholecalciferol (VITAMIN D3) 1,000 unit tab tablet Take 1 tablet by mouth once daily. cyclobenzaprine (FLEXERIL) 10 mg tablet Take 1 tablet by mouth at bedtime as needed for muscle spasm or pain. albuterol HFA (VENTOLIN HFA) 90 mcg/actuation inhaler Inhale 2 puffs as instructed every 4 hours as needed for wheezing/shortness of breath. dicyclomine (BENTYL) 10 mg capsule Take 10 mg by mouth before meals and at bedtime. ascorbic acid, vitamin C, 500 mg cap Take 1 capsule by mouth once daily. ALPRAZolam (XANAX) 0.5 mg tablet Take 0.5 mg by mouth at bedtime as needed. predniSONE (DELTASONE) 20 mg tablet Take 2 tablets by mouth once daily for 5 days. benzonatate (TESSALON PERLES) 100 mg capsule Take 1-2 capsules by mouth three times a day as needed for cough. scopolamine (TRANSDERM-SCOP) patch 1.5 mg/72 hr (delivers 1 mg over 3 days) Apply 1 Patch as directed every 72 hours. From [facility]. FAMILY HISTORY Problem Relation Age of Onset Breast Cancer Mother Diabetes Mother Heart Mother Cancer Father liver ca Diabetes Sister No Known Problems Brother No Known Problems Half-brother No Known Problems Half-brother No Known Problems (more content not included)... [facility] 05-08-2025 History of Present illness Narrative CC: Patient presents with: Cough: Cough, bilateral ear pressure, nausea, fatigue x 3-4 days HPI Recording using [employer] software for draft documentation of the visit was discussed with the patient/authorized sales representative advertising; all questions welcomed and answered. Patient/authorized sales representative advertising agreed to proceed The patient is a 64-year-old female with allergic rhinitis, presenting for evaluation of acute worsening upper respiratory symptoms. Upper Respiratory Symptoms: - Symptoms x 4 days - Describes feeling like she got hit with a semi-truck. - Rhinorrhea, pharyngitis, otalgia, cough, chills and epiphora. - Dyspnea with exertion. - Using ice water to alleviate throat dryness. - Nausea managed with a transdermal patch and oral antiemetics. - Took sinus and mucus medication from [employer], which caused nausea; discontinued use. - No antipyretics or cough suppressants used. - Denies fever, hemoptysis, or known asthma history. - No COVID-19 testing performed. - recently had similar symptoms. - Former smoker. - Uses Flonase for perennial allergic rhinitis. Review of Systems See HPI PAST MEDICAL HISTORY Diagnosis Date Bee sting allergy 04/28/2008 Concussion with no loss of consciousness Displacement of intervertebral disc, site unspecified, without myelopathy 11/30/2006 [facility] claim Disturbance of skin sensation Esophageal reflux Headaches migraines Hypercholesteremia Mental disorder anxiety Multiple rib fractures 2012 Fell down stairs to basement-- 5th and 6th rib fractures and left great toe fracture Snoring Sprain of lumbosacral (joint) (ligament) Sprain of neck [facility] claim Sprain of thoracic region [facility] claim Tubular adenoma of colon 07/29/2015 Dr. Caban Variants of migraine, not elsewhere classified, without mention of intractable migraine without mention of status migrainosus PAST SURGICAL HISTORY Procedure Laterality Date CHOLECYSTECTOMY 02/26/2017 Cholecystectomy; [facility] with Dr. Alejo COLONOSCOPY FLX DX W/COLLJ SPEC WHEN PFRMD 07/29/2015 Colonoscopy COLONOSCOPY SCREENING 2019 COLONOSCOPY SCREENING 06/28/2023 repeat in 10 years, Dr. Alejo EGD 05/08/2024 ESOPHAGOGASTRODUODENOSCOPY TRANSORAL DIAGNOSTIC 07/29/2015 EGD ESOPHAGOGASTRODUODENOSCOPY TRANSORAL DIAGNOSTIC 04/05/2017 EGD PAST SURGICAL HISTORY OF bilat feet - reconstruction ALLERGIES Bee Venom Protein (Honey Bee), Morphine, Relafen [Nabumetone], Venom-Honey Bee, and Zolpidem MEDICATIONS diclofenac, EC, (VOLTAREN) 50 mg EC tablet Take 1 tablet by mouth two times a day as needed. ibuprofen (MOTRIN) 800 mg tablet Take 1 tablet by mouth every 8 hours as needed for pain. Take with food. naratriptan (AMERGE) 2.5 mg tablet Take 1 tablet by mouth as needed. 2.5 mg at onset of headache, may repeat in 4 hours if needed promethazine (PHENERGAN) 25 mg tablet Take 0.5-1 tablets by mouth every 6 hours as needed. loperamide (ANTI-DIARRHEAL) 2 mg cap(s) Take 1 capsule by mouth four times a day as needed for diarrhea. pantoprazole DR (PROTONIX) 40 mg tablet Take 1 tablet by mouth two times a day before meals at 6 am and 4 pm. Take on empty stomach, 1/2 hr before meal. topiramate (TOPAMAX) 100 mg tablet TAKE 2 TABLETS TWICE A DAY IN THE MORNING AND AT BEDTIME fluticasone (FLONASE) 50 mcg/actuation nasal spray Use 2 sprays in each nostril once daily. Rinse mouth after use. EPINEPHrine (EPIPEN 2-LUAN) 0.3 mg/0.3 mL auto-injector Inject 0.3 mL intramuscularly as needed. dilTIAZem CD (CARTIA XT) 180 mg 24 hr capsule Take 1 capsule by mouth once daily. cholecalciferol (VITAMIN D3) 1,000 unit tab tablet Take 1 tablet by mouth once daily. cyclobenzaprine (FLEXERIL) 10 mg tablet Take 1 tablet by mouth at bedtime as needed for muscle spasm or pain. albuterol HFA (VENTOLIN HFA) 90 mcg/actuation inhaler Inhale 2 puffs as instructed every 4 hours as needed for wheezing/shortness of breath. dicyclomine (BENTYL) 10 mg capsule Take 10 mg by mouth before meals and at bedtime. ascorbic acid, vitamin C, 500 mg cap Take 1 capsule by mouth once daily. ALPRAZolam (XANAX) 0.5 mg tablet Take 0.5 mg by mouth at bedtime as needed. predniSONE (DELTASONE) 20 mg tablet Take 2 tablets by mouth once daily for 5 days. benzonatate (TESSALON PERLES) 100 mg capsule Take 1-2 capsules by mouth three times a day as needed for cough. scopolamine (TRANSDERM-SCOP) patch 1.5 mg/72 hr (delivers 1 mg over 3 days) Apply 1 Patch as directed every 72 hours. From [facility]. FAMILY HISTORY Problem Relation Age of Onset Breast Cancer Mother Diabetes Mother Heart Mother Cancer Father liver ca Diabetes Sister No Known Problems Brother No Known Problems Half-brother No Known Problems Half-brother No Known Problems Half-sister SOCIAL HISTORY[1] BP 116/74 Pulse 68 Temp 36.2 C (97.1 F) (Temporal) Resp 12 Wt 62.8 kg (138 lb 7.2 oz) LMP 10/18/2006 SpO2 99% BMI 23.21 kg/m Physical Exam Vitals reviewed. Constitutional: Appearance: Normal appearance. HENT: Head: Normocephalic and atraumatic. Right Ear: Tympanic membrane normal. Left Ear: Tympanic membrane normal. Nose: Right Sinus: No maxillary sinus tenderness or frontal sinus tenderness. Left Sinus: No maxillary sinus tenderness or frontal sinus tenderness. Mouth/Throat: Mouth: Mucous membranes are moist. Pharynx: Oropharynx is clear. Uvula midline. No pharyngeal swelling, posterior oropharyngeal erythema or uvula swelling. Eyes: Conjunctiva/sclera: Conjunctivae normal. Cardiovascular: Rate and Rhythm: Normal rate and regular rhythm. Heart sounds: Normal heart sounds. No murmur heard. Pulmonary: Effort: Pulmonary effort is normal. Breath sounds: Normal breath sounds. No wheezing, rhonchi or rales. Lymphadenopathy: Cervical: Cervical adenopathy present. Right cervical: Superficial cervical adenopathy present. Left cervical: Superficial cervical adenopathy present. Skin: General: Skin is warm and dry. Neurological: Mental Status: She is alert. Assessment/Plan 1. Viral URI with cough: Patient reports worsening upper respiratory symptoms including nasal congestion, sore throat, and post-nasal drainage, but lungs remain clear on auscultation with oxygen saturation at 99%. Cervical lymphadenopathy is palpated without evidence of bacterial infection, and no respiratory distress is observed. No antibiotic is indicated due to likely viral etiology and associated risks including Clostridioides difficile and yeast infections. - Continued intranasal corticosteroid (Flonase) daily. - Prescribed prednisone once daily for 5 days to reduce inflammation and ease symptoms; advised to take in the morning to avoid insomnia. - Prescribed Tessalon Perles 100 mg, 1-2 capsules up to three times daily as needed for cough. - Recommended throat spray (benzocaine) or warm salt water gargles, plus warm tea with honey for symptomatic relief. - Advised re-evaluation in 5-7 days or sooner if symptoms significantly worsen. - Provided after-visit summary per patient request. Prescription instructions reviewed with patient as applicable. Potential red flag symptoms discussed with the patient. Reviewed appropriate action plan to take if red flag symptoms occur. Patient agreeable to treatment plan. Cecilia Sparks APRN.[employer] TECHNICIAN [1] Social History Tobacco Use Smoking status: Former Current packs/day: 0.00 Types: Cigarettes Quit date: 07/21/2015 Years since quittin.8 Smokeless tobacco: Never Tobacco comments: was smoking less than one half pack; had cut back until able to quit 08/10/2009 Vaping Use Vaping status: Never Used Substance Use Topics Alcohol use: Not Currently Comment: Quit early 2023 Drug use: No documented in this encounter [facility] 05-08-2025 Instructions Cecilia Sparks APRN.CNP - 05/08/2025 12:40 PM EDT - 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 - Take Prednisone once daily for 5 days. - Take Tessalon Perles (benzonatate) 1-2 capsules up to three times a day as needed to ease your cough. - Continue using your Flonase nasal spray every day. - To soothe your throat, do warm salt-water gargles, sip warm tea with honey, and use the throat spray as needed. - Monitor your symptoms over the next 5-7 days; if you do not feel significantly better or if you worsen, please let us know. documented in this encounter [facility] 05-04-2025 Note HNO ID: [id number] Author: CECILIA SPARKS APRN.BONY Service: ? Author Type: Nurse Practitioner Type: Progress Notes Filed: 05/04/2025 14:17 Note Text: CC: Patient presents with: F/U 6 Month HPI Recording using [employer] software for draft documentation of the visit was discussed with the patient/authorized sales representative advertising; all questions welcomed and answered. Patient/authorized sales representative advertising agreed to proceed Saulo Geiger is a 64-year-old female with a history of migraines, anxiety, and allergies, presenting for a 6-month follow-up. - Requests refills for Phenergan, loperamide, andAmerge - Takes Phenergan for nausea; also uses scopolamine patch PRN, but notes it causes mydriasis. - Takes loperamide for diarrhea, especially after eating certain foods post-cholecystectomy. - Takes Amerge for migraines, which have been occurring since 6th grade. No new or worsening migraine symptoms. - Takes diclofenac and ibuprofen for chronic back and neck pain; has multiple herniated discs. - also takes cyclobenzaprine at night for chronic pain Review of Systems See HPI PAST MEDICAL HISTORY Diagnosis Date Bee sting allergy 04/28/2008 Concussion with no loss of consciousness Displacement of intervertebral disc, site unspecified, without myelopathy 11/30/2006 [facility] claim Disturbance of skin sensation Esophageal reflux Headaches migraines Hypercholesteremia Mental disorder anxiety Multiple rib fractures 2012 Fell down stairs to basement-- 5th and 6th rib fractures and left great toe fracture Snoring Sprain of lumbosacral (joint) (ligament) Sprain of neck [facility] claim Sprain of thoracic region [facility] claim Tubular adenoma of colon 07/29/2015 Dr. Caban Variants of migraine, not elsewhere classified, without mention of intractable migraine without mention of status migrainosus PAST SURGICAL HISTORY Procedure Laterality Date CHOLECYSTECTOMY 02/26/2017 Cholecystectomy; [facility] with Dr. Alejo COLONOSCOPY FLX DX W/COLLJ SPEC WHEN PFRMD 07/29/2015 Colonoscopy COLONOSCOPY SCREENING 2018 COLONOSCOPY SCREENING 06/28/2023 repeat in 10 years, Dr. Alejo EGD 05/08/2024 ESOPHAGOGASTRODUODENOSCOPY TRANSORAL DIAGNOSTIC 07/29/2015 EGD ESOPHAGOGASTRODUODENOSCOPY TRANSORAL DIAGNOSTIC 04/05/2017 EGD PAST SURGICAL HISTORY OF bilat feet - reconstruction ALLERGIES Bee Venom Protein (Honey Bee), Morphine, Relafen [Nabumetone], Venom-Honey Bee, and Zolpidem MEDICATIONS diclofenac, EC, (VOLTAREN) 50 mg EC tablet Take 1 tablet by mouth two times a day as needed. ibuprofen (MOTRIN) 800 mg tablet Take 1 tablet by mouth every 8 hours as needed for pain. Take with food. naratriptan (AMERGE) 2.5 mg tablet Take 1 tablet by mouth as needed. 2.5 mg at onset of headache, may repeat in 4 hours if needed promethazine (PHENERGAN) 25 mg tablet Take 0.5-1 tablets by mouth every 6 hours as needed. loperamide (ANTI-DIARRHEAL) 2 mg cap(s) Take 1 capsule by mouth four times a day as needed for diarrhea. pantoprazole DR (PROTONIX) 40 mg tablet Take 1 tablet by mouth two times a day before meals at 6 am and 4 pm. Take on empty stomach, 1/2 hr before meal. topiramate (TOPAMAX) 100 mg tablet TAKE 2 TABLETS TWICE A DAY IN THE MORNING AND AT BEDTIME fluticasone (FLONASE) 50 mcg/actuation nasal spray Use 2 sprays in each nostril once daily. Rinse mouth after use. EPINEPHrine (EPIPEN 2-LUAN) 0.3 mg/0.3 mL auto-injector Inject 0.3 mL intramuscularly as needed. dilTIAZem CD (CARTIA XT) 180 mg 24 hr capsule Take 1 capsule by mouth once daily. cholecalciferol (VITAMIN D3) 1,000 unit tab tablet Take 1 tablet by mouth once daily. cyclobenzaprine (FLEXERIL) 10 mg tablet Take 1 tablet by mouth at bedtime as needed for muscle spasm or pain. albuterol HFA (VENTOLIN HFA) 90 mcg/actuation inhaler Inhale 2 puffs as instructed every 4 hours as needed for wheezing/shortness of breath. dicyclomine (BENTYL) 10 mg capsule Take 10 mg by mouth before meals and at bedtime. ascorbic acid, vitamin C, 500 mg cap Take 1 capsule by mouth once daily. scopolamine (TRANSDERM-SCOP) patch 1.5 mg/72 hr (delivers 1 mg over 3 days) Apply 1 Patch as directed every 72 hours. From [facility]. ALPRAZolam (XANAX) 0.5 mg tablet Take 0.5 mg by mouth at bedtime as needed. FAMILY HISTORY Problem Relation Age of Onset Breast Cancer Mother Diabetes Mother Heart Mother Cancer Father liver ca Diabetes Sister No Known Problems Brother No Known Problems Half-brother No Known Problems Half-brother No Known Problems Half-sister SOCIAL HISTORY[1] BP 118/84 Pulse 75 Resp 16 Wt 62.5 kg (137 lb 12.6 oz) LMP 10/18/2006 SpO2 100% BMI 23.10 kg/m? Physical Exam Vitals reviewed. Constitutional: Appearance: Normal appearance. Cardiovascular: Rate and Rhythm: Normal rate and regular rhythm. Pulmonary: Effort: Pulmonary effort is normal. Breath sounds: Normal breath sounds. Neur (more content not included)... [facility] 05-04-2025 History of Present illness Narrative CC: Patient presents with: F/U 6 Month HPI Recording using ambient [employer] software for draft documentation of the visit was discussed with the patient/authorized sales representative advertising; all questions welcomed and answered. Patient/authorized sales representative advertising agreed to proceed Saulo Geiger is a 64-year-old female with a history of migraines, anxiety, and allergies, presenting for a 6-month follow-up. - Requests refills for Phenergan, loperamide, andAmerge - Takes Phenergan for nausea; also uses scopolamine patch PRN, but notes it causes mydriasis. - Takes loperamide for diarrhea, especially after eating certain foods post-cholecystectomy. - Takes Amerge for migraines, which have been occurring since 6th grade. No new or worsening migraine symptoms. - Takes diclofenac and ibuprofen for chronic back and neck pain; has multiple herniated discs. - also takes cyclobenzaprine at night for chronic pain Review of Systems See HPI PAST MEDICAL HISTORY Diagnosis Date Bee sting allergy 04/28/2008 Concussion with no loss of consciousness Displacement of intervertebral disc, site unspecified, without myelopathy 11/30/2006 [facility] claim Disturbance of skin sensation Esophageal reflux Headaches migraines Hypercholesteremia Mental disorder anxiety Multiple rib fractures 2012 Fell down stairs to basement-- 5th and 6th rib fractures and left great toe fracture Snoring Sprain of lumbosacral (joint) (ligament) Sprain of neck [facility] claim Sprain of thoracic region [facility] claim Tubular adenoma of colon 07/29/2015 Dr. Caban Variants of migraine, not elsewhere classified, without mention of intractable migraine without mention of status migrainosus PAST SURGICAL HISTORY Procedure Laterality Date CHOLECYSTECTOMY 02/26/2017 Cholecystectomy; [facility] with Dr. Alejo COLONOSCOPY FLX DX W/COLLJ SPEC WHEN PFRMD 07/29/2015 Colonoscopy COLONOSCOPY SCREENING 2019 COLONOSCOPY SCREENING 06/28/2023 repeat in 10 years, Dr. Alejo EGD 05/08/2024 ESOPHAGOGASTRODUODENOSCOPY TRANSORAL DIAGNOSTIC 07/29/2015 EGD ESOPHAGOGASTRODUODENOSCOPY TRANSORAL DIAGNOSTIC 04/05/2017 EGD PAST SURGICAL HISTORY OF bilat feet - reconstruction ALLERGIES Bee Venom Protein (Honey Bee), Morphine, Relafen [Nabumetone], Venom-Honey Bee, and Zolpidem MEDICATIONS diclofenac, EC, (VOLTAREN) 50 mg EC tablet Take 1 tablet by mouth two times a day as needed. ibuprofen (MOTRIN) 800 mg tablet Take 1 tablet by mouth every 8 hours as needed for pain. Take with food. naratriptan (AMERGE) 2.5 mg tablet Take 1 tablet by mouth as needed. 2.5 mg at onset of headache, may repeat in 4 hours if needed promethazine (PHENERGAN) 25 mg tablet Take 0.5-1 tablets by mouth every 6 hours as needed. loperamide (ANTI-DIARRHEAL) 2 mg cap(s) Take 1 capsule by mouth four times a day as needed for diarrhea. pantoprazole DR (PROTONIX) 40 mg tablet Take 1 tablet by mouth two times a day before meals at 6 am and 4 pm. Take on empty stomach, 1/2 hr before meal. topiramate (TOPAMAX) 100 mg tablet TAKE 2 TABLETS TWICE A DAY IN THE MORNING AND AT BEDTIME fluticasone (FLONASE) 50 mcg/actuation nasal spray Use 2 sprays in each nostril once daily. Rinse mouth after use. EPINEPHrine (EPIPEN 2-LUAN) 0.3 mg/0.3 mL auto-injector Inject 0.3 mL intramuscularly as needed. dilTIAZem CD (CARTIA XT) 180 mg 24 hr capsule Take 1 capsule by mouth once daily. cholecalciferol (VITAMIN D3) 1,000 unit tab tablet Take 1 tablet by mouth once daily. cyclobenzaprine (FLEXERIL) 10 mg tablet Take 1 tablet by mouth at bedtime as needed for muscle spasm or pain. albuterol HFA (VENTOLIN HFA) 90 mcg/actuation inhaler Inhale 2 puffs as instructed every 4 hours as needed for wheezing/shortness of breath. dicyclomine (BENTYL) 10 mg capsule Take 10 mg by mouth before meals and at bedtime. ascorbic acid, vitamin C, 500 mg cap Take 1 capsule by mouth once daily. scopolamine (TRANSDERM-SCOP) patch 1.5 mg/72 hr (delivers 1 mg over 3 days) Apply 1 Patch as directed every 72 hours. From [facility]. ALPRAZolam (XANAX) 0.5 mg tablet Take 0.5 mg by mouth at bedtime as needed. FAMILY HISTORY Problem Relation Age of Onset Breast Cancer Mother Diabetes Mother Heart Mother Cancer Father liver ca Diabetes Sister No Known Problems Brother No Known Problems Half-brother No Known Problems Half-brother No Known Problems Half-sister SOCIAL HISTORY[1] BP 118/84 Pulse 75 Resp 16 Wt 62.5 kg (137 lb 12.6 oz) LMP 10/18/2006 SpO2 100% BMI 23.10 kg/m Physical Exam Vitals reviewed. Constitutional: Appearance: Normal appearance. Cardiovascular: Rate and Rhythm: Normal rate and regular rhythm. Pulmonary: Effort: Pulmonary effort is normal. Breath sounds: Normal breath sounds. Neurological: Mental Status: She is alert. Health maintenance reviewed with patient: Mammogram Screening due on 05/01/2019 Pneumococcal Vaccine: 50+(3 of 3 - PCV20 or PCV21) due on 06/20/2020 Depression Screening due on 03/04/2025 Anxiety Screening due on 03/04/2025 Shingrix Vaccine(2 of 2) due on 09/15/2025 Influenza Vaccine(1) due on 05/11/2025 Diabetes Screening due on 08/13/2027 Lipid Screening due on 03/16/2028 Colorectal Cancer Screening due on 06/28/2028 Cervical Cancer Screening due on 08/01/2029 DTaP,Tdap,Td Vaccine(3 - Td or Tdap) due on 05/24/2033 RSV Vaccine Completed Hepatitis C Screening Completed HIV Screening Discontinued DATA REVIEWED: Most recent labs Assessment/Plan 1. DDD (degenerative disc disease), lumbar (M51.369) 2. Chronic bilateral low back pain without sciatica (M54.50) 3. Cervicalgia (M54.2) 4. Displacement of cervical intervertebral disc without myelopathy (M50.20) - Chronic back and neck pain managed with diclofenac, ibuprofen, and cyclobenzaprine. - Confirmed patient has 5 refills remaining on cyclobenzaprine. - Educated on not taking diclofenac and ibuprofen concurrently. 5. Migraine variant (G43.809) - Chronic migraines since sixth grade. - Refilled Emerge for migraine management. 6. Chronic diarrhea (K52.9) - Chronic diarrhea post-cholecystectomy. - Refilled loperamide 7. Chronic nausea (R11.0) - Managed with Phenergan and scopolamine patch; patient reports scopolamine causes mydriasis. - Refilled Phenergan. 8. Encounter for screening mammogram for breast cancer (Z12.31) - Last documented mammogram in 2017; recent order placed but not completed. - Ordered screening mammogram; patient agreed to schedule today. - Educated on difference between clinical breast exam and mammogram. Prescription instructions reviewed with patient as applicable. Potential red flag symptoms discussed with the patient. Reviewed appropriate action plan to take if red flag symptoms occur. Patient agreeable to treatment plan. Cecilia Sparks APRN.BONY [1] Social History Tobacco Use Smoking status: Former Current packs/day: 0.00 Types: Cigarettes Quit date: 07/21/2015 Years since quittin.7 Smokeless tobacco: Never Tobacco comments: was smoking less than one half pack; had cut back until able to quit 08/10/2009 Vaping Use Vaping status: Never Used Substance Use Topics Alcohol use: Not Currently Comment: Quit early 2023 Drug use: No documented in this encounter [facility] 02-12-2025 Telephone encounter Note Patient calls and states that she is transferring her medications to [facility] since [facility] is closing. Patient asking if medications can be [facility]. The patient has been identified by name and date of : Yes Caregiver verified no other encounters exist for this prescription request: Yes Caregiver confirmed with patient/requestor that no other refills are due, in the near future, with this provider at this time: Yes The last office visit in the department: 01/02/2025 Does the patient have a future office visit with this provider/department: Yes 03/31/2025 Requested Prescriptions Pending Prescriptions Disp Refills loperamide (ANTI-DIARRHEAL) 2 mg cap(s) 240 capsule 1 Sig: Take 1 capsule by mouth four times a day as needed for diarrhea. naratriptan (AMERGE) 2.5 mg tablet 18 tablet 3 Sig: Take 1 tablet by mouth as needed. 2.5 mg at onset of headache, may repeat in 4 hours if needed pantoprazole DR (PROTONIX) 40 mg tablet 180 tablet 3 Sig: Take 1 tablet by mouth two times a day before meals at 6 am and 4 pm. Take on empty stomach, 1/2 hr before meal. topiramate (TOPAMAX) 100 mg tablet 360 tablet 3 Sig: TAKE 2 TABLETS TWICE A DAY IN THE MORNING AND AT BEDTIME fluticasone (FLONASE) 50 mcg/actuation nasal spray 1 each 11 Sig: Use 2 sprays in each nostril once daily. Rinse mouth after use. ibuprofen (MOTRIN) 800 mg tablet 30 tablet 1 Sig: Take 1 tablet by mouth every 8 hours as needed for pain. Take with food. EPINEPHrine (EPIPEN 2-LUAN) 0.3 mg/0.3 mL auto-injector 2 each 1 Sig: Inject 0.3 mL intramuscularly as needed. diclofenac, EC, (VOLTAREN) 50 mg EC tablet 60 tablet 2 Sig: Take 1 tablet by mouth two times a day as needed. dilTIAZem CD (CARTIA XT) 180 mg 24 hr capsule 90 capsule 3 Sig: Take 1 capsule by mouth once daily. cholecalciferol (VITAMIN D3) 1,000 unit tab tablet 90 tablet 3 Sig: Take 1 tablet by mouth once daily. cyclobenzaprine (FLEXERIL) 10 mg tablet 30 tablet 5 Sig: Take 1 tablet by mouth at bedtime as needed for muscle spasm or pain. albuterol HFA (VENTOLIN HFA) 90 mcg/actuation inhaler 1 each 1 Sig: Inhale 2 puffs as instructed every 4 hours as needed for wheezing/shortness of breath. Nilsa Lara RN February 12, 2025 2:21 PM T [facility] 02-12-2025 Miscellaneous Notes Patient calls and states that she is transferring her medications to [facility] since [facility] is closing. Patient asking if medications can be [facility]. The patient has been identified by name and date of : Yes Caregiver verified no other encounters exist for this prescription request: Yes Caregiver confirmed with patient/requestor that no other refills are due, in the near future, with this provider at this time: Yes The last office visit in the department: 01/02/2025 Does the patient have a future office visit with this provider/department: Yes 03/31/2025 Requested Prescriptions Pending Prescriptions Disp Refills loperamide (ANTI-DIARRHEAL) 2 mg cap(s) 240 capsule 1 Sig: Take 1 capsule by mouth four times a day as needed for diarrhea. naratriptan (AMERGE) 2.5 mg tablet 18 tablet 3 Sig: Take 1 tablet by mouth as needed. 2.5 mg at onset of headache, may repeat in 4 hours if needed pantoprazole DR (PROTONIX) 40 mg tablet 180 tablet 3 Sig: Take 1 tablet by mouth two times a day before meals at 6 am and 4 pm. Take on empty stomach, 1/2 hr before meal. topiramate (TOPAMAX) 100 mg tablet 360 tablet 3 Sig: TAKE 2 TABLETS TWICE A DAY IN THE MORNING AND AT BEDTIME fluticasone (FLONASE) 50 mcg/actuation nasal spray 1 each 11 Sig: Use 2 sprays in each nostril once daily. Rinse mouth after use. ibuprofen (MOTRIN) 800 mg tablet 30 tablet 1 Sig: Take 1 tablet by mouth every 8 hours as needed for pain. Take with food. EPINEPHrine (EPIPEN 2-LUAN) 0.3 mg/0.3 mL auto-injector 2 each 1 Sig: Inject 0.3 mL intramuscularly as needed. diclofenac, EC, (VOLTAREN) 50 mg EC tablet 60 tablet 2 Sig: Take 1 tablet by mouth two times a day as needed. dilTIAZem CD (CARTIA XT) 180 mg 24 hr capsule 90 capsule 3 Sig: Take 1 capsule by mouth once daily. cholecalciferol (VITAMIN D3) 1,000 unit tab tablet 90 tablet 3 Sig: Take 1 tablet by mouth once daily. cyclobenzaprine (FLEXERIL) 10 mg tablet 30 tablet 5 Sig: Take 1 tablet by mouth at bedtime as needed for muscle spasm or pain. albuterol HFA (VENTOLIN HFA) 90 mcg/actuation inhaler 1 each 1 Sig: Inhale 2 puffs as instructed every 4 hours as needed for wheezing/shortness of breath. Nilsa Lara RN February 12, 2025 2:21 PM documented in this encounter [facility] 01-02-2025 Instructions Akni Elliott MD - 01/02/2025 12:30 PM EDT - An EpiPen prescription has been sent to [facility]. When you pick it up, check the cost; if it seems too high, let us know so we can consider alternatives. - A new Flexeril (cyclobenzaprine) prescription has been sent to replace your current one for your back pain. Please use it as directed. - Continue taking your Voltaren pill each morning. This supply (60 pills with refills) should last you until about March 31. - A new prescription for your blood pressure medication (diltiazem) has been sent since your current supply will run out in February. - A refill for your Flonase nasal spray has been ordered to help manage your allergy symptoms. - A new order has been sent for your nasal inhaler to replace the one you were using. - For your left eye that sometimes dilates and causes blurriness, take a clear picture or video of the episode and share it at your eye doctor appointment next week. - Continue using your dicyclomine patch (Venazia) for stomach discomfort, and if your nausea becomes severe, use one of your prescribed Phenergan tablets. - A new order has been placed for your routine mammogram as part of your regular screening. - You are scheduled for regular 3-month checkups (arranged up through June), so please follow up as previously planned. documented in this encounter [facility] 01-02-2025 Note HNO ID: [id number] Author: AKIN ELLIOTT MD Service: ? Author Type: Physician Type: Progress Notes Filed: 01/26/2025 01:26 Note Text: This note was created using [employer]. Subjective Saulo Geiger is a 64 year old female. Patient presents with: F/U 3 Month Saulo is a 64-year-old female with a history of bee sting allergy, back pain, and diverticulitis, presenting for a 3-month follow-up visit. Saulo reports a history of severe allergic reactions to bee stings, with the most recent significant reaction occurring when she was stung on the neck, leading to throat swelling and difficulty breathing. She was prescribed an EpiPen at that time, which provided rapid symptom relief. She has not had an EpiPen for several years due to cost concerns. She inquires about the possibility of obtaining a free EpiPen from the hospital. She also reports chronic back pain, noting that her back has been getting more hunched over. She takes cyclobenzaprine daily for muscle relaxation and diclofenac every morning for pain management. Saulo experiences seasonal allergies and uses Flonase nasal spray. She also reports episodes of dyspnea, for which she previously used an inhaler that has since . She notes intermittent episodes of left eye pupil dilation, causing blurry vision without associated pain or cephalalgia. She has an upcoming appointment with her eye doctor next week. Saulo has a history of diverticulitis and recently underwent upper and lower endoscopies in October, which revealed two ulcers and a hernia. She is currently taking dicyclomine and wearing a scopolamine patch behind her ear for nausea management. PAST MEDICAL HISTORY Diagnosis Date Bee sting allergy 04/28/2008 Concussion with no loss of consciousness Displacement of intervertebral disc, site unspecified, without myelopathy 11/30/2006 [facility] claim Disturbance of skin sensation Esophageal reflux Headaches migraines Hypercholesteremia Mental disorder anxiety Multiple rib fractures 2012 Fell down stairs to basement-- 5th and 6th rib fractures and left great toe fracture Snoring Sprain of lumbosacral (joint) (ligament) Sprain of neck [facility] claim Sprain of thoracic region [facility] claim Tubular adenoma of colon 07/29/2015 Dr. Caban Variants of migraine, not elsewhere classified, without mention of intractable migraine without mention of status migrainosus Current Outpatient Medications Medication Sig dicyclomine (BENTYL) 10 mg capsule Take 10 mg by mouth before meals and at bedtime. promethazine (PHENERGAN) 25 mg tablet Take 12.5-25 mg by mouth every 6 hours as needed. ibuprofen (MOTRIN) 800 mg tablet Take 1 tablet by mouth every 8 hours as needed for pain. Take with food. diclofenac, EC, (VOLTAREN) 50 mg EC tablet Take 1 tablet by mouth two times a day as needed. ascorbic acid, vitamin C, 500 mg cap Take 1 capsule by mouth once daily. scopolamine (TRANSDERM-SCOP) patch 1.5 mg/72 hr (delivers 1 mg over 3 days) Apply 1 Patch as directed every 72 hours. From [facility]. ALPRAZolam (XANAX) 0.5 mg tablet Take 0.5 mg by mouth at bedtime as needed. naratriptan (AMERGE) 2.5 mg tablet Take 1 tablet (2.5 mg) by mouth as needed. 2.5 mg at onset of headache, may repeat in 4 hours if needed fluticasone (FLONASE) 50 mcg/actuation nasal spray Use 2 Sprays in each nostril once daily. Rinse mouth after use. cholecalciferol (VITAMIN D3) 1,000 unit tab tablet Take 1 tablet by mouth once daily. loperamide (ANTI-DIARRHEAL) 2 mg cap(s) Take 1 capsule by mouth four times a day as needed for diarrhea. EPINEPHrine (EPIPEN 2-LUAN) 0.3 mg/0.3 mL auto-injector Inject 0.3 mL intramuscularly as needed. albuterol HFA (VENTOLIN HFA) 90 mcg/actuation inhaler Inhale 2 puffs as instructed every 4 hours as needed for wheezing/shortness of breath. cyclobenzaprine (FLEXERIL) 10 mg tablet Take 1 tablet by mouth at bedtime as needed for muscle spasm or pain. dilTIAZem CD (CARTIA XT) 180 mg 24 hr capsule Take 1 capsule by mouth once daily. pantoprazole DR (PROTONIX) 40 mg tablet Take 1 tablet by mouth two times a day before meals at 6 am and 4 pm. Take on empty stomach, 1/2 hr before meal. topiramate (TOPAMAX) 100 mg tablet TAKE 2 TABLETS TWICE A DAY IN THE MORNING AND AT BEDTIME No current facility-administered medications for this visit. Review of Systems Objective BP 138/80 (BP Site: Left Arm, BP Position: Sitting, BP Cuff Size: Regular Adult) Pulse 68 Resp 16 Wt 63.2 kg (139 lb 5.3 oz) LMP 10/18/2006 BMI 23.36 kg/m? Physical Exam HENT: Head: Normocephalic. Eyes: Extraocular Movements: Extraocular movements intact. Conjunctiva/sclera: Conjunctivae normal. Pupils: Pupils are equal, round, and reactive to light. Pulmonary: Effort: Pulmonary effort is normal. Neurological: General: No focal deficit present. Mental Status: She is alert and oriented to person, place, and (more content not included)... [facility] 01-02-2025 History of Present illness Narrative This note was created using [employer]. Subjective Saulo Geiger is a 64 year old female. Patient presents with: F/U 3 Month Saulo is a 64-year-old female with a history of bee sting allergy, back pain, and diverticulitis, presenting for a 3-month follow-up visit. Saulo reports a history of severe allergic reactions to bee stings, with the most recent significant reaction occurring when she was stung on the neck, leading to throat swelling and difficulty breathing. She was prescribed an EpiPen at that time, which provided rapid symptom relief. She has not had an EpiPen for several years due to cost concerns. She inquires about the possibility of obtaining a free EpiPen from the hospital. She also reports chronic back pain, noting that her back has been getting more hunched over. She takes cyclobenzaprine daily for muscle relaxation and diclofenac every morning for pain management. Saulo experiences seasonal allergies and uses Flonase nasal spray. She also reports episodes of dyspnea, for which she previously used an inhaler that has since . She notes intermittent episodes of left eye pupil dilation, causing blurry vision without associated pain or cephalalgia. She has an upcoming appointment with her eye doctor next week. Saulo has a history of diverticulitis and recently underwent upper and lower endoscopies in October, which revealed two ulcers and a hernia. She is currently taking dicyclomine and wearing a scopolamine patch behind her ear for nausea management. PAST MEDICAL HISTORY Diagnosis Date Bee sting allergy 04/28/2008 Concussion with no loss of consciousness Displacement of intervertebral disc, site unspecified, without myelopathy 11/30/2006 [facility] claim Disturbance of skin sensation Esophageal reflux Headaches migraines Hypercholesteremia Mental disorder anxiety Multiple rib fractures 2012 Fell down stairs to basement-- 5th and 6th rib fractures and left great toe fracture Snoring Sprain of lumbosacral (joint) (ligament) Sprain of neck [facility] claim Sprain of thoracic region [facility] claim Tubular adenoma of colon 07/29/2015 Dr. Caban Variants of migraine, not elsewhere classified, without mention of intractable migraine without mention of status migrainosus Current Outpatient Medications Medication Sig dicyclomine (BENTYL) 10 mg capsule Take 10 mg by mouth before meals and at bedtime. promethazine (PHENERGAN) 25 mg tablet Take 12.5-25 mg by mouth every 6 hours as needed. ibuprofen (MOTRIN) 800 mg tablet Take 1 tablet by mouth every 8 hours as needed for pain. Take with food. diclofenac, EC, (VOLTAREN) 50 mg EC tablet Take 1 tablet by mouth two times a day as needed. ascorbic acid, vitamin C, 500 mg cap Take 1 capsule by mouth once daily. scopolamine (TRANSDERM-SCOP) patch 1.5 mg/72 hr (delivers 1 mg over 3 days) Apply 1 Patch as directed every 72 hours. From [facility]. ALPRAZolam (XANAX) 0.5 mg tablet Take 0.5 mg by mouth at bedtime as needed. naratriptan (AMERGE) 2.5 mg tablet Take 1 tablet (2.5 mg) by mouth as needed. 2.5 mg at onset of headache, may repeat in 4 hours if needed fluticasone (FLONASE) 50 mcg/actuation nasal spray Use 2 Sprays in each nostril once daily. Rinse mouth after use. cholecalciferol (VITAMIN D3) 1,000 unit tab tablet Take 1 tablet by mouth once daily. loperamide (ANTI-DIARRHEAL) 2 mg cap(s) Take 1 capsule by mouth four times a day as needed for diarrhea. EPINEPHrine (EPIPEN 2-LUAN) 0.3 mg/0.3 mL auto-injector Inject 0.3 mL intramuscularly as needed. albuterol HFA (VENTOLIN HFA) 90 mcg/actuation inhaler Inhale 2 puffs as instructed every 4 hours as needed for wheezing/shortness of breath. cyclobenzaprine (FLEXERIL) 10 mg tablet Take 1 tablet by mouth at bedtime as needed for muscle spasm or pain. dilTIAZem CD (CARTIA XT) 180 mg 24 hr capsule Take 1 capsule by mouth once daily. pantoprazole DR (PROTONIX) 40 mg tablet Take 1 tablet by mouth two times a day before meals at 6 am and 4 pm. Take on empty stomach, 1/2 hr before meal. topiramate (TOPAMAX) 100 mg tablet TAKE 2 TABLETS TWICE A DAY IN THE MORNING AND AT BEDTIME No current facility-administered medications for this visit. Review of Systems Objective BP 138/80 (BP Site: Left Arm, BP Position: Sitting, BP Cuff Size: Regular Adult) Pulse 68 Resp 16 Wt 63.2 kg (139 lb 5.3 oz) LMP 10/18/2006 BMI 23.36 kg/m Physical Exam HENT: Head: Normocephalic. Eyes: Extraocular Movements: Extraocular movements intact. Conjunctiva/sclera: Conjunctivae normal. Pupils: Pupils are equal, round, and reactive to light. Pulmonary: Effort: Pulmonary effort is normal. Neurological: General: No focal deficit present. Mental Status: She is alert and oriented to person, place, and time. Psychiatric: Mood and Affect: Mood normal. Behavior: Behavior normal. Thought Content: Thought content normal. Judgment: Judgment normal. 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 - Continue diclofenac daily; current supply sufficient until next appointment. # Migraine variant (G43.809) - No current headaches associated with episodes of anisocoria. - Continue current migraine management. 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 - Discussed importance of having an EpiPen available; patient previously did not have one due to cost. - Educated on potential changes in insurance coverage; advised to check current formulary. - [facility]; patient to verify cost and notify if unaffordable. # Nausea (R11.0) - Managed with transdermal scopolamine patch and promethazine as needed. - Follow-up with Dr. Rucker for ongoing management. # Gastroesophageal reflux disease, unspecified whether esophagitis present (K21.9) -Refill for Protonix given. -Controlled with PPI. # Acute cough (R05.1) Uses albuterol as needed when has an acute cough consistent with being due to bronchospasm. # Essential (primary) hypertension (I10) - Managed with diltiazem; prescription refilled to ensure continuity until next appointment. # Seasonal allergic rhinitis due to other allergic trigger (J30.89) - Managed with Flonase; current supply sufficient until May. - Prescription for albuterol inhaler reordered to assist with occasional dyspnea. # Hiatal hernia (K44.9) - Diagnosed during recent endoscopy by Dr. Rucker. - Follow-up with Dr. Rucker for ongoing management. # Encounter for screening mammogram for breast cancer (Z12.31) - Ordered screening mammogram. Akin Elliott MD Recording using [employer] software for draft documentation of the visit was discussed with the patient/authorized sales representative advertising; all questions welcomed and answered. Patient/authorized sales representative advertising agreed to proceed documented in this encounter [facility] 12-16-2024 Telephone encounter Note Patient has refills remaining for Fluticasone. Neyda Templeton LPN [facility] 12-16-2024 Miscellaneous Notes Patient has refills remaining for Fluticasone. Neyda Templeton LPN Prescription Refill Information The patient has been identified by name and date of : Yes Caregiver verified no other encounters exist for this prescription request: Yes Caregiver confirmed with patient/requestor that no other refills are due, in the near future, with this provider at this time: Yes The last office visit in the department: 09/15/2024 Does the patient have a future office visit with this provider/department: Yes Requested Prescriptions Pending Prescriptions Disp Refills fluticasone (FLONASE) 50 mcg/actuation nasal spray 1 each 11 Sig: Use 2 sprays in each nostril once daily. Rinse mouth after use. ibuprofen (MOTRIN) 800 mg tablet 30 tablet 1 Sig: Take 1 tablet by mouth every 8 hours as needed for pain. Take with food. Ilana Sesay December 16, 2024 10:50 AM documented in this encounter [facility] 12-16-2024 Telephone encounter Note Prescription Refill Information The patient has been identified by name and date of : Yes Caregiver verified no other encounters exist for this prescription request: Yes Caregiver confirmed with patient/requestor that no other refills are due, in the near future, with this provider at this time: Yes The last office visit in the department: 09/15/2024 Does the patient have a future office visit with this provider/department: Yes Requested Prescriptions Pending Prescriptions Disp Refills fluticasone (FLONASE) 50 mcg/actuation nasal spray 1 each 11 Sig: Use 2 sprays in each nostril once daily. Rinse mouth after use. ibuprofen (MOTRIN) 800 mg tablet 30 tablet 1 Sig: Take 1 tablet by mouth every 8 hours as needed for pain. Take with food. Ilana Sesay December 16, 2024 10:50 AM [facility] 10-29-2024 Telephone encounter Note The following approved medication requests have been transmitted electronically. Requested Prescriptions Pending Prescriptions Disp Refills ibuprofen (MOTRIN) 800 mg tablet 30 tablet 1 Sig: Take 1 tablet by mouth every 8 hours as needed for pain. Take with food. Akin Elliott MD [facility] 10-29-2024 Miscellaneous Notes The following approved medication requests have been transmitted electronically. Requested Prescriptions Pending Prescriptions Disp Refills ibuprofen (MOTRIN) 800 mg tablet 30 tablet 1 Sig: Take 1 tablet by mouth every 8 hours as needed for pain. Take with food. Akin Elliott MD The patient has been identified by name and date of : Yes Caregiver verified no other encounters exist for this prescription request: Yes Caregiver confirmed with patient/requestor that no other refills are due, in the near future, with this provider at this time: Yes The last office visit in the department: 09/15/2024 Does the patient have a future office visit with this provider/department: Yes 12/26/2024 Requested Prescriptions Pending Prescriptions Disp Refills ibuprofen (MOTRIN) 800 mg tablet 30 tablet 1 Sig: Take 1 tablet by mouth every 8 hours as needed for pain. Take with food. Marcie Judge LPN October 29, 2024 11:10 AM documented in this encounter [facility] 10-29-2024 Telephone encounter Note The patient has been identified by name and date of : Yes Caregiver verified no other encounters exist for this prescription request: Yes Caregiver confirmed with patient/requestor that no other refills are due, in the near future, with this provider at this time: Yes The last office visit in the department: 09/15/2024 Does the patient have a future office visit with this provider/department: Yes 12/26/2024 Requested Prescriptions Pending Prescriptions Disp Refills ibuprofen (MOTRIN) 800 mg tablet 30 tablet 1 Sig: Take 1 tablet by mouth every 8 hours as needed for pain. Take with food. Marcie Judge LPN October 29, 2024 11:10 AM [facility] 10-22-2024 Note [facility] Medical Records Department [address] [place] [id number] History Physical Exam 10/22/24 1309 MR#: [id number] Acct: [id number] Name: SAULO GEIGER I Rep #: [id number] : 1960 64 From: Mariano Friend DO PCP: Dr. Akin Elliott MD Status:[facility] Location: [place] [address] HPI - General General Date of Admission: 10/22/24 Date of Service: 10/22/24 Chief Complaint: Abdominal pain and dysphagia HPI Narrative SAULO GEIGER, is a 64 F who presents for the evaluation of abdominal pain, dysphagia. BGI established 9..24 w/ dysphagia, abdominal pain, nausea and feelings of fullness in her neck. Most recent scopes were in April [address] neck .05.03;No space-occupying mass is identified. OV 12..24 Pt continues to have issues with swallowing, nausea and abdominal pain. Nothing has been helpful for these symptoms. Her main concern today is the diffuse lower abdominal pain and the nausea. Every time she eats she if feeling nauseous but does not vomit daily. She feels like she has a tennis ball size mass in her abdomen that she feels moving. has Her PCP ordered CT abd/pelvis whim was without abnormality. CT abd/pelvis 08.14.24: No acute findings in the abdomen or pelvis. [facility] Medical History Post-menopausal Anxiety Back pain Injury of head and neck History of ulceration Gastric reflux Former smoker Shortness of breath on exertion Hypercholesteremia Esophageal reflux Disc displacement LLQ pain Dysphagia Home Medications ???Medication ???Instructions ???Recorded ???Last Taken ???Type diltiazem HCl 180 mg 180 mg PO DAILY headaches 05/15/14 08/28/18 06:00 History capsule,extended release 24 hr naratriptan 2.5 mg tablet 2.5 mg PO PRN 07/13/23 Unknown His tory pantoprazole 40 mg tablet,delayed 40 mg PO BID 07/13/23 Unknown His tory release promethazine 25 mg tablet 12.5 mg PO PRN 07/13/23 Unknown Hi story topiramate 100 mg tablet 200 mg PO BID 07/13/23 Unknown His tory cyclobenzaprine 10 mg tablet 10 mg PO HS 05/23/24 Unknown Histo ry loperamide 2 mg capsule 2 mg PO Q4H PRN LOOSE STOOLS 05/23 Unknown History dicyclomine 10 mg capsule 10 mg PO BID PRN abdominal pain Unknown Rx #30 caps scopolamine base 1 mg over 3 days 1 patch transdermal Q3D PRN nause a 09/19/24 Unknown Rx transdermal patch #4 ea Allergy/AdvReac Type Severity Reaction Status Date / Time nabumetone (From Relafen) Allergy Intermediate Other Verified 10/20/24 11:49 venom-honey bee (bee venom Allergy Unknown Verified 10/20/24 11:49 (honey bee)) morphine AdvReac Nausea Verified 10/20/24 11:49 zolpidem (From Ambien) AdvReac Other Verified 10/20/24 11:49 Family History Mother Heart disease CVA (cerebral vascular accident) Father Cancer Sister Diabetes Surgical History History of bunionectomy of both great toes History of cholecystectomy H/O tubal ligation H/O colonoscopy Social History Smoking Status: Former smoker quit date: 07/21/15 alcohol intake: current alcohol intake frequency: holidays/special occasions only substance use type: does not use ROS Constitutional Constitutional: Denies fatigue, fever(s), poor appetite, weight gain or weight loss Gastrointestinal Gastrointestinal: Denies belching, bloating, change in bowel habits, change in stool character, chewing difficulty, coffee ground emesis, constipation, cramping, diarrhea, dyspepsia, dysphagia, early satiety, excessive flatus, fecal incontinence, heartburn, hematemesis, hematochezia, hemorrhoids, loose stools, melena, nausea, odynophagia, rectal bleeding, tenesmus, vomiting or weight changes Physical Exam Const alert, oriented x3, no apparent distress and healthy appearing General Appearance: cooperative GI normal to inspection, nondistended, normoactive bowel sounds, soft to palpation, non-tender and non- distended Percussion: normal to percussion Rectal Exam: deferred Assessment Plan Assessment/Plan (1) Dysphagia: (2) Diverticulitis: (3) Abdominal pain: PLAN: Plan Assessment and Plan Assessment and Plan (1) Abdominal pain: Plan: This is a 64 yo female pt here today for f/u. Pt has had issues with swallowing, nausea and abdominal pain for some time now. CT neck and abd/pelvis was without abnormalities. Her last scopes were in April 2024. SHe will undergo these procedures again with Dr. Rucker to re-evaluate her GI tract. I also prescribed dicyclomine for the pain. She will also use a scopolamine patch for nausea as needed. -EGD and colonosc (more content not included)... [facility] 10-08-2024 Telephone encounter Note The patient has been identified by name and date of : Yes Caregiver verified no other encounters exist for this prescription request: Yes Caregiver confirmed with patient/requestor that no other refills are due, in the near future, with this provider at this time: Yes The last office visit in the department: 09/15/2024 Does the patient have a future office visit with this provider/department: Yes 12/26/2024 Requested Prescriptions Pending Prescriptions Disp Refills diclofenac, EC, (VOLTAREN) 50 mg EC tablet 60 tablet 2 Sig: Take 1 tablet by mouth two times a day as needed. Nilsa Lara RN October 08, 2024 11:05 AM [facility] 10-08-2024 Miscellaneous Notes The patient has been identified by name and date of : Yes Caregiver verified no other encounters exist for this prescription request: Yes Caregiver confirmed with patient/requestor that no other refills are due, in the near future, with this provider at this time: Yes The last office visit in the department: 09/15/2024 Does the patient have a future office visit with this provider/department: Yes 12/26/2024 Requested Prescriptions Pending Prescriptions Disp Refills diclofenac, EC, (VOLTAREN) 50 mg EC tablet 60 tablet 2 Sig: Take 1 tablet by mouth two times a day as needed. Nilsa Lara RN October 08, 2024 11:05 AM documented in this encounter [facility] 09-16-2024 Telephone encounter Note Spoke with patient and she stated that this was addressed 09/15/24 during office visit with Dr. Elliott. Encounter closed. [facility] 09-16-2024 Miscellaneous Notes Spoke with patient and she stated that this was addressed 09/15/24 during office visit with Dr. Elliott. Encounter closed. Left message for return call. Patient has been on multiple antibiotic since June Augmentin, Doxycycline,Bactrim, Zpak and cephalexin without resolution of symptoms. Some of them she did not tolerate due to GI side effects. Check on Sunday if having symptoms still (and what those symptoms are if so). Recommend ENT evaluation if symptoms were not improving over the weekend even without an antibiotic. Will consider extending course of cephalexin if symptoms consistent with bacterial infection. Does have 1/6 office appointment with me on schedule. Symptoms like watery eyes could be more from allergic rhinitis and conjunctivitis rather than bacterial sinus infection. Clarify if sinusitis and eye symptoms got much better while on prednisone or if symptoms got worse after finishing prednisone. Patient was seen by Dr. Rivera on 08/28/2024 for acute non-recurrent sinusitis. Patient calling today to report that symptoms (sinus pain/pressure, drainage) are not any better. Patient reports that she thought she was starting to feel better but one day after stopping antibiotic all symptoms have remained the same. Patient requesting another round of antibiotics be sent to [facility]. Recommended follow up appt per OV notes. Patient declined. Requesting provider review. Patient reports if second round of antibiotics doesn't work then she would come in for appt. Patient requesting this be looked at today. Forwarding to PCP. Chyna Sotelo RN documented in this encounter [facility] 09-15-2024 Instructions Akin Elliott MD - 09/15/2024 2:09 PM EST - Start a new course of Prednisone as prescribed: - Take 30 mg daily for 3 days. - Take 20 mg daily for 3 days. - Take 10 mg daily for 3 days. - Continue using Flonase as directed. - You may continue taking your generic Claritin (loratadine) as needed. - Refill for Flexeril (cyclobenzaprine) [facility] in [place]; take as directed at bedtime. - Next follow-up appointment in 3 months (December) at 1:00 pm. If not able to clear up issues with billing, can discuss with Financial Counselors and check on MyChart about Explanation of Benefits. If still not able to clear things, can discuss with the Ombudsman (can get information through main line her [phone] documented in this encounter [facility] 09-15-2024 Note HNO ID: [id number] Author: AKIN ELLIOTT MD Service: ? Author Type: Physician Type: Progress Notes Filed: 10/19/2024 00:39 Note Text: This note was created using [employer]. Subjective Saulo Geiger is a 64 year old female. HISTORY Saulo Geiger is a 64 year old lady here for yearly exam and follow up appointment. Saulo Geiger is a 64-year-old female with a history of chronic sinusitis and migraines, presenting for a yearly checkup and ongoing sinus issues. Saulo reports persistent sinus symptoms despite completing a course of prednisone prescribed by Dr. Rivera. Initially, she experienced significant improvement, but within 1-2 days after finishing the medication, symptoms returned. She describes her nasal discharge as like water and notes that her eyes appeared as if she were crying due to excessive tearing. Currently, the discharge from her eyes is thicker, and she frequently needs to wipe them. She continues to feel congested and observes yellow nasal discharge when blowing her nose. She is currently using Flonase and a generic loratadine. She also reports a throbbing, pounding sensation in her head, particularly noticeable when lying down. This sensation persists regardless of her position and is described as similar to a heartbeat. She denies checking her blood pressure during these episodes and does not consume caffeine at night. She is currently taking Topamax BID for migraine prophylaxis and has a prescription for Emerge, which was last filled in June with 3 refills remaining. She also has a prescription for Motrin, last filled in February with 1 refill remaining, and diltiazem, last filled in February. Additionally, she mentions taking Flexeril at bedtime for muscle spasms, but her prescription has no refills left since February. She also takes a natural sleep aid, the name of which she cannot recall. She reports low energy and difficulty sleeping last night, spending most of the day in bed yesterday. She has a history of a low immune system and has been exposed to a friend with the flu and another friend with COVID-19. She declines HIV screening and is unsure about receiving the pneumonia vaccine today. She is concerned about her medical bills and has not received an explanation of benefits from her insurance. She has been told she owes $700 at the clinic but has not received a bill. She is also concerned about her 's medical bills, as he was recently treated for 17 kidney stones and has 2 aneurysms. PAST MEDICAL HISTORY Diagnosis Date Bee sting allergy 04/28/2008 Concussion with no loss of consciousness Displacement of intervertebral disc, site unspecified, without myelopathy 11/30/2006 [facility] claim Disturbance of skin sensation Esophageal reflux Headaches migraines Hypercholesteremia Mental disorder anxiety Multiple rib fractures 2012 Fell down stairs to basement-- 5th and 6th rib fractures and left great toe fracture Snoring Sprain of lumbosacral (joint) (ligament) Sprain of neck [facility] claim Sprain of thoracic region [facility] claim Tubular adenoma of colon 07/29/2015 Dr. Caban Variants of migraine, not elsewhere classified, without mention of intractable migraine without mention of status migrainosus Current Outpatient Medications Medication Sig scopolamine (TRANSDERM-SCOP) patch 1.5 mg/72 hr (delivers 1 mg over 3 days) Apply 1 Patch as directed every 72 hours. From [facility]. ALPRAZolam (XANAX) 0.5 mg tablet Take 0.5 mg by mouth at bedtime as needed. naratriptan (AMERGE) 2.5 mg tablet Take 1 tablet (2.5 mg) by mouth as needed. 2.5 mg at onset of headache, may repeat in 4 hours if needed diclofenac, EC, (VOLTAREN) 50 mg EC tablet Take 1 tablet by mouth two times a day as needed. fluticasone (FLONASE) 50 mcg/actuation nasal spray Use 2 Sprays in each nostril once daily. Rinse mouth after use. cholecalciferol (VITAMIN D3) 1,000 unit tab tablet Take 1 tablet by mouth once daily. loperamide (ANTI-DIARRHEAL) 2 mg cap(s) Take 1 capsule by mouth four times a day as needed for diarrhea. dilTIAZem CD (CARTIA XT) 180 mg 24 hr capsule Take 1 capsule by mouth once daily. topiramate (TOPAMAX) 100 mg tablet TAKE 2 TABLETS TWICE A DAY IN THE MORNING AND AT BEDTIME pantoprazole DR (PROTONIX) 40 mg tablet Take 1 tablet by mouth two times a day before meals at 6 am and 4 pm. Take on empty stomach, 1/2 hr before meal. cyclobenzaprine (FLEXERIL) 10 mg tablet Take 1 tablet by mouth at bedtime as needed for muscle spasm or pain. ibuprofen (MOTRIN) 800 mg tablet Take 1 tablet by mouth every 8 hours as needed for pain. Take with food. No current facility-administered medications for this visit. ALLERGIES Allergen Reactions Bee Venom Protein (* Unknown Morphine Vomiting Relafen [Nabumetone] Diarrhea 2004 tried med Venom-Honey Bee Unknown Zolpidem Other: See Comments FAMILY HISTORY Problem Relation Age (more content not included)... [facility] 09-15-2024 History of Present illness Narrative This note was created using [employer]. Subjective Saulo Geiger is a 64 year old female. HISTORY Saulo Geiger is a 64 year old lady here for yearly exam and follow up appointment. Saulo Geiger is a 64-year-old female with a history of chronic sinusitis and migraines, presenting for a yearly checkup and ongoing sinus issues. Saulo reports persistent sinus symptoms despite completing a course of prednisone prescribed by Dr. Rivera. Initially, she experienced significant improvement, but within 1-2 days after finishing the medication, symptoms returned. She describes her nasal discharge as like water and notes that her eyes appeared as if she were crying due to excessive tearing. Currently, the discharge from her eyes is thicker, and she frequently needs to wipe them. She continues to feel congested and observes yellow nasal discharge when blowing her nose. She is currently using Flonase and a generic loratadine. She also reports a throbbing, pounding sensation in her head, particularly noticeable when lying down. This sensation persists regardless of her position and is described as similar to a heartbeat. She denies checking her blood pressure during these episodes and does not consume caffeine at night. She is currently taking Topamax BID for migraine prophylaxis and has a prescription for Emerge, which was last filled in June with 3 refills remaining. She also has a prescription for Motrin, last filled in February with 1 refill remaining, and diltiazem, last filled in February. Additionally, she mentions taking Flexeril at bedtime for muscle spasms, but her prescription has no refills left since February. She also takes a natural sleep aid, the name of which she cannot recall. She reports low energy and difficulty sleeping last night, spending most of the day in bed yesterday. She has a history of a low immune system and has been exposed to a friend with the flu and another friend with COVID-19. She declines HIV screening and is unsure about receiving the pneumonia vaccine today. She is concerned about her medical bills and has not received an explanation of benefits from her insurance. She has been told she owes $700 at the clinic but has not received a bill. She is also concerned about her 's medical bills, as he was recently treated for 17 kidney stones and has 2 aneurysms. PAST MEDICAL HISTORY Diagnosis Date Bee sting allergy 04/28/2008 Concussion with no loss of consciousness Displacement of intervertebral disc, site unspecified, without myelopathy 11/30/2006 [facility] claim Disturbance of skin sensation Esophageal reflux Headaches migraines Hypercholesteremia Mental disorder anxiety Multiple rib fractures 2012 Fell down stairs to basement-- 5th and 6th rib fractures and left great toe fracture Snoring Sprain of lumbosacral (joint) (ligament) Sprain of neck [facility] claim Sprain of thoracic region [facility] claim Tubular adenoma of colon 07/29/2015 Dr. Baggott Variants of migraine, not elsewhere classified, without mention of intractable migraine without mention of status migrainosus Current Outpatient Medications Medication Sig scopolamine (TRANSDERM-SCOP) patch 1.5 mg/72 hr (delivers 1 mg over 3 days) Apply 1 Patch as directed every 72 hours. From [facility]. ALPRAZolam (XANAX) 0.5 mg tablet Take 0.5 mg by mouth at bedtime as needed. naratriptan (AMERGE) 2.5 mg tablet Take 1 tablet (2.5 mg) by mouth as needed. 2.5 mg at onset of headache, may repeat in 4 hours if needed diclofenac, EC, (VOLTAREN) 50 mg EC tablet Take 1 tablet by mouth two times a day as needed. fluticasone (FLONASE) 50 mcg/actuation nasal spray Use 2 Sprays in each nostril once daily. Rinse mouth after use. cholecalciferol (VITAMIN D3) 1,000 unit tab tablet Take 1 tablet by mouth once daily. loperamide (ANTI-DIARRHEAL) 2 mg cap(s) Take 1 capsule by mouth four times a day as needed for diarrhea. dilTIAZem CD (CARTIA XT) 180 mg 24 hr capsule Take 1 capsule by mouth once daily. topiramate (TOPAMAX) 100 mg tablet TAKE 2 TABLETS TWICE A DAY IN THE MORNING AND AT BEDTIME pantoprazole DR (PROTONIX) 40 mg tablet Take 1 tablet by mouth two times a day before meals at 6 am and 4 pm. Take on empty stomach, 1/2 hr before meal. cyclobenzaprine (FLEXERIL) 10 mg tablet Take 1 tablet by mouth at bedtime as needed for muscle spasm or pain. ibuprofen (MOTRIN) 800 mg tablet Take 1 tablet by mouth every 8 hours as needed for pain. Take with food. No current facility-administered medications for this visit. ALLERGIES Allergen Reactions Bee Venom Protein (* Unknown Morphine Vomiting Relafen [Nabumetone] Diarrhea 2004 tried med Venom-Honey Bee Unknown Zolpidem Other: See Comments FAMILY HISTORY Problem Relation Age of Onset Breast Cancer Mother Diabetes Mother Heart Mother Cancer Father liver ca Diabetes Sister No Known Problems Brother No Known Problems Half-brother No Known Problems Half-brother No Known Problems Half-sister Social History Tobacco Use Smoking status: Former Current packs/day: 0.00 Types: Cigarettes Quit date: 07/21/2015 Years since quittin.1 Smokeless tobacco: Never Tobacco comments: was smoking less than one half pack; had cut back until able to quit 08/10/2009 Vaping Use Vaping status: Never Used Substance Use Topics Alcohol use: Yes Comment: rarely Drug use: No Review of Systems Objective BP 126/78 Pulse 74 Temp 36.6 C (97.8 F) Resp 16 Ht 164.5 cm (5' 4.76) Wt 61.8 kg (136 lb 3.9 oz) LMP 10/18/2006 SpO2 100% BMI 22.84 kg/m Last 5 Encounter Wt Readings: Date: Wt: 09/15/2024 61.8 kg (136 lb 3.9 oz) 08/28/2024 61.7 kg (136 lb 0.4 oz) 08/14/2024 62.6 kg (138 lb 0.1 oz) 08/04/2024 62.5 kg (137 lb 12.6 oz) 08/01/2024 62.4 kg (137 lb 9.6 oz) No waist measurement recorded Estimated body mass index is 22.84 kg/m as calculated from the following: Height as of this encounter: 164.5 cm (5' 4.76). Weight as of this encounter: 61.8 kg (136 lb 3.9 oz). Last 5 Encounter BP Readings: Date: BP: 09/15/2024 126/78 08/28/2024 96/60 08/14/2024 128/62 08/04/2024 144/82 08/01/2024 128/74 Physical Exam Vitals reviewed. Constitutional: Appearance: Normal appearance. She is well-developed. HENT: Head: Normocephalic and atraumatic. Right Ear: Tympanic membrane, ear canal and external ear normal. Left Ear: Tympanic membrane, ear canal and external ear normal. Nose: Nose normal. Mouth/Throat: Mouth: Mucous membranes are moist. Eyes: Conjunctiva/sclera: Conjunctivae normal. Pupils: Pupils are equal, round, and reactive to light. Neck: Thyroid: No thyromegaly. Vascular: No carotid bruit. Cardiovascular: Rate and Rhythm: Normal rate and regular rhythm. Pulses: Normal pulses. Heart sounds: Normal heart sounds. No murmur heard. No friction rub. No gallop. Pulmonary: Effort: Pulmonary effort is normal. Breath sounds: Normal breath sounds. Abdominal: General: Bowel sounds are normal. There is no distension. Palpations: Abdomen is soft. There is no mass. Tenderness: There is no abdominal tenderness. Musculoskeletal: General: No deformity. Normal range of motion. Right lower leg: No edema. Left lower leg: No edema. Lymphadenopathy: Cervical: No cervical adenopathy. Skin: General: Skin is warm and dry. Coloration: Skin is not jaundiced or pale. Findings: No rash. Neurological: General: No focal deficit present. Mental Status: She is alert and oriented to person, place, and time. Cranial Nerves: No cranial nerve deficit. Sensory: No sensory deficit. Motor: No abnormal muscle tone. Coordination: Coordination normal. Deep Tendon Reflexes: Reflexes normal. Psychiatric: Attention and Perception: Attention and perception normal. Mood and Affect: Mood and affect normal. Speech: Speech normal. Behavior: Behavior normal. Thought Content: Thought content normal. Cognition and Memory: Cognition and memory normal. Judgment: Judgment normal. Assessment and Plan # Routine medical exam (Z00.00) - Completed routine physical examination. - Declined HIV screening. - Postponed pneumonia and shingles vaccines due to current steroid treatment. - Updated family history: Two sisters (one with diabetes), three brothers. - Scheduled follow-up appointment in three months. # Chronic sinusitis, unspecified location (J32.9) - Persistent symptoms of nasal congestion, rhinorrhea, and post-nasal drip. - Previous short course of prednisone provided temporary relief. - Prescribed a longer tapering course of prednisone: 30 mg daily for 3 days, 20 mg daily for 3 days, and 10 mg daily for 3 days. - Continue using Flonase nasal spray. - Advised to monitor for any signs of bacterial infection such as fever, chills, or severe pain. 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 # Migraine variant (G43.809) - Current medications include Topamax twice daily and Emerge as needed. - Refilled prescriptions for Topamax and Emerge. - Advised to limit caffeine intake. - Discussed potential triggers related to sinus pressure. Akin Elliott MD documented in this encounter [facility] 09-08-2024 Telephone encounter Note Left message for return call. [facility] 09-07-2024 Telephone encounter Note Patient has been on multiple antibiotic since June Augmentin, Doxycycline,Bactrim, Zpak and cephalexin without resolution of symptoms. Some of them she did not tolerate due to GI side effects. Check on Sunday if having symptoms still (and what those symptoms are if so). Recommend ENT evaluation if symptoms were not improving over the weekend even without an antibiotic. Will consider extending course of cephalexin if symptoms consistent with bacterial infection. Does have 1/6 office appointment with me on schedule. Symptoms like watery eyes could be more from allergic rhinitis and conjunctivitis rather than bacterial sinus infection. Clarify if sinusitis and eye symptoms got much better while on prednisone or if symptoms got worse after finishing prednisone. [facility] 09-05-2024 Telephone encounter Note Patient was seen by Dr. Rivera on 08/28/2024 for acute non-recurrent sinusitis. Patient calling today to report that symptoms (sinus pain/pressure, drainage) are not any better. Patient reports that she thought she was starting to feel better but one day after stopping antibiotic all symptoms have remained the same. Patient requesting another round of antibiotics be sent to [facility]. Recommended follow up appt per OV notes. Patient declined. Requesting provider review. Patient reports if second round of antibiotics doesn't work then she would come in for appt. Patient requesting this be looked at today. Forwarding to PCP. Chyna Sotelo RN [facility] 09-04-2024 History of Present illness Narrative RADIOLOGY SERVICE PROGRESS NOTE SERVICE DATE: 09/04/2024 SERVICE TIME: 07:35 AM PATIENT IDENTITY VERIFICATION COMPLETED USING TWO (2) STANDARD IDENTIFIERS: Name and Date of confirmed by patient verbally FALL SCREENING: Has the patient had 2 falls in the last year or 1 fall with injury or currently using an Ambulatory Assistive Device (Walker, Cane, Wheelchair, Crutches, etc.)? No PATIENT GENDER DATA: .female : No ALLERGIES: Reviewed and unchanged MEDICATIONS REVIEWED: No PATIENT RELEVANT IMPLANT DATA REVIEWED: Not Applicable PATIENT PRESENTS WITH AN IMPLANTABLE OR ATTACHED SEWING MACHINE ATTACHMENT TESTER: n/a CREATININE: Creatinine Date Value Ref Range Status 08/13/2024 1.14 (H) 0.58 - 0.96 mg/dL Final 08/04/2024 1.17 (H) 0.58 - 0.96 mg/dL Final 03/04/2024 1.14 (H) 0.58 - 0.96 mg/dL Final Estimated Glomerular Filtration Rate Date Value Ref Range Status 08/13/2024 55 (L) >=60 mL/min/1.73m Final Comment: Estimated Glomerular Filtration Rate (eGFR) is calculated using the 2020 CKD-EPI creatinine equation. This equation utilizes serum creatinine, sex, and age as parameters. The creatinine assay has traceable calibration to isotope dilution-mass spectrometry. Refer to KDIGO guidelines for clinical interpretation. In patients with unstable renal function, e.g. those with acute kidney injury, the eGFR may not accurately reflect actual GFR. eGFR- Date Value Ref Range Status 12/10/2020 57 Final P.O.C.T. RESULTS: N/A September 04, [address] PERFORMED: No IV SITE: Ambulatory: Not applicable POST EXAM PIV STATUS: Not applicable PROCEDURE TYPE: NM GET: 1.08 mCi Tc99m Sulfur Colloid was administered orally via 4 ounces of Egg Beaters,1 piece of toast, 1/2 ounce of jelly with 8 ounces of water orally ADMINISTRATION TIME: 07:55 PATIENT DISCHARGED TO: Ambulatory patient, left [place] department area. Is this a therapy: No A Diagnostic radioactive procedure has taken place, with no further precautions necessary other than routine body substance precautions. More information regarding radiation safety can be found using this link: [email or web address] [email or web address]%20Nuclear%20Medicine% 20Procedures.[email or web address] SIGNATURE: SINA Purvis) PATIENT NAME: Saulo Geiger DATE: September 04, 2024 TIME: 9:04 AM PAGER/CONTACT #: documented in this encounter [facility] 09-04-2024 Note HNO ID: [id number] Author: BRITNI LOERA RT(R) Service: Nuclear Medicine Author Type: Technologist Type: Progress Notes Filed: 09/04/2024 09:06 Note Text: RADIOLOGY SERVICE PROGRESS NOTE SERVICE DATE: 09/04/2024 SERVICE TIME: 07:35 AM PATIENT IDENTITY VERIFICATION COMPLETED USING TWO (2) STANDARD IDENTIFIERS: Name and Date of confirmed by patient verbally FALL SCREENING: Has the patient had 2 falls in the last year or 1 fall with injury or currently using an Ambulatory Assistive Device (Walker, Cane, Wheelchair, Crutches, etc.)? No PATIENT GENDER DATA: .female : No ALLERGIES: Reviewed and unchanged MEDICATIONS REVIEWED: No PATIENT RELEVANT IMPLANT DATA REVIEWED: Not Applicable PATIENT PRESENTS WITH AN IMPLANTABLE OR ATTACHED SEWING MACHINE ATTACHMENT TESTER: n/a CREATININE: Creatinine Date Value Ref Range Status 08/13/2024 1.14 (H) 0.58 - 0.96 mg/dL Final 08/04/2024 1.17 (H) 0.58 - 0.96 mg/dL Final 03/04/2024 1.14 (H) 0.58 - 0.96 mg/dL Final Estimated Glomerular Filtration Rate Date Value Ref Range Status 08/13/2024 55 (L) >=60 mL/min/1.73m? Final Comment: Estimated Glomerular Filtration Rate (eGFR) is calculated using the 2020 CKD-EPI creatinine equation. This equation utilizes serum creatinine, sex, and age as parameters. The creatinine assay has traceable calibration to isotope dilution-mass spectrometry. Refer to KDIGO guidelines for clinical interpretation. In patients with unstable renal function, e.g. those with acute kidney injury, the eGFR may not accurately reflect actual GFR. eGFR- Date Value Ref Range Status 12/10/2020 57 Final P.O.C.T. RESULTS: N/A September 04, [address] PERFORMED: No IV SITE: Ambulatory: Not applicable POST EXAM PIV STATUS: Not applicable PROCEDURE TYPE: NM GET: 1.08 mCi Tc99m Sulfur Colloid was administered orally via 4 ounces of Egg Beaters,1 piece of toast, 1/2 ounce of jelly with 8 ounces of water orally ADMINISTRATION TIME: 07:55 PATIENT DISCHARGED TO: Ambulatory patient, left [place] department area. Is this a therapy: No A Diagnostic radioactive procedure has taken place, with no further precautions necessary other than routine body substance precautions. More information regarding radiation safety can be found using this link: [email or web address] [email or web address] 20Diagnostic%20Nuclear%20Medicine%20Pr [email or web address] SIGNATURE: RT Yaniv(R) PATIENT NAME: Saulo Geiger DATE: September 04, 2024 TIME: 9:04 AM PAGER/CONTACT #: [facility] 08-28-2024 Note HNO ID: [id number] Author: NIRAV RIVERA MD Service: ? Author Type: Physician Type: Progress Notes Filed: 08/28/2024 14:57 Note Text: This note was created using NoteWriter. Subjective Patient presents with: ED Follow-up Saulo Geiger is a 64 year old female. She was in the ER for chest and epigastric pain. Troponins were negative. She continued with sinus congestion, yellowish drainage, cough, feverishness, headache, watery eyes, and scratchy throat for 2 weeks. She's had various antibiotics for sinus infections most of which were not tolerated due to GI side effects. She was referred to [facility] for dysphagia, nausea and was scheduled for more tests. GI provider started her on transderm scopolamine. She seemed to indicate sucralfate was prescribed but I did not see this in medication reconciliation. Review of Systems Per HPI. 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 naratriptan (AMERGE) 2.5 mg tablet Take 1 tablet (2.5 mg) by mouth as needed. 2.5 mg at onset of headache, may repeat in 4 hours if needed promethazine (PHENERGAN) 25 mg tablet Take 0.5-1 tablets by mouth every 6 hours as needed. diclofenac, EC, (VOLTAREN) 50 mg EC tablet Take 1 tablet by mouth two times a day as needed. fluticasone (FLONASE) 50 mcg/actuation nasal spray Use 2 Sprays in each nostril once daily. Rinse mouth after use. cholecalciferol (VITAMIN D3) 1,000 unit tab tablet Take 1 tablet by mouth once daily. loperamide (ANTI-DIARRHEAL) 2 mg cap(s) Take 1 capsule by mouth four times a day as needed for diarrhea. dilTIAZem CD (CARTIA XT) 180 mg 24 hr capsule Take 1 capsule by mouth once daily. topiramate (TOPAMAX) 100 mg tablet TAKE 2 TABLETS TWICE A DAY IN THE MORNING AND AT BEDTIME pantoprazole DR (PROTONIX) 40 mg tablet Take 1 tablet by mouth two times a day before meals at 6 am and 4 pm. Take on empty stomach, 1/2 hr before meal. cyclobenzaprine (FLEXERIL) 10 mg tablet Take 1 tablet by mouth at bedtime as needed for muscle spasm or pain. ibuprofen (MOTRIN) 800 mg tablet Take 1 tablet by mouth every 8 hours as needed for pain. Take with food. No current facility-administered medications for this visit. Objective BP 96/60 (BP Site: Left Arm, BP Position: Sitting, BP Cuff Size: Large Adult) Pulse 92 Temp 37.7 ?C (99.9 ?F) (Temporal) Resp 16 Wt 61.7 kg (136 lb 0.4 oz) LMP 10/18/2006 BMI 23.35 kg/m? Physical Exam Constitutional: General: She is not in acute distress. Appearance: She is ill-appearing. She is not toxic-appearing. HENT: Right Ear: Tympanic membrane normal. Left Ear: Tympanic membrane normal. Nose: Mucosal edema and congestion present. Right Turbinates: Swollen. Left Turbinates: Swollen. Right Sinus: Maxillary sinus tenderness present. Left Sinus: Maxillary sinus tenderness present. Cardiovascular: Rate and Rhythm: Normal rate and regular rhythm. Pulmonary: Effort: No respiratory distress. Breath sounds: No wheezing or rales. Musculoskeletal: Right lower leg: No edema. Left lower leg: No edema. Lymphadenopathy: Cervical: No cervical adenopathy. Neurological: Mental Status: She is alert. ER report reviewed. Assessment and Plan 1. Acute non-recurrent sinusitis, unspecified location - ICD9: 461.9, ICD10: J01.90 (primary diagnosis) - Will begin treatment with as per antibiotic as written, see orders - CEPHALEXIN 500 MG CAPSULE - PREDNISONE 20 MG TABLET Discussed medication dosage, usage, goals of therapy, and side effects. 2. Watery eyes - ICD9: 375.20, ICD10: H04.203 See above. 3. Dysphagia, unspecified type - ICD9: 787.20, ICD10: R13.10 Medication list updated. - SCOPOLAMINE 1 MG OVER 3 DAYS TRANSDERMAL PATCH 4. Gastroesophageal reflux disease, unspecified whether esophagitis present - ICD9: 530.81, ICD10: K21.9 - See GI as scheduled. 5. Nausea and vomiting, unspecified vomiting type - ICD9: 787.01, ICD10: R11.2 See above. - SCOPOLAMINE 1 MG OVER 3 DAYS TRANSDERMAL PATCH Nirav Rivera MD [facility] 08-28-2024 History of Present illness Narrative This note was created using NoteWriter. Subjective Patient presents with: ED Follow-up Saulo Geiger is a 64 year old female. She was in the ER for chest and epigastric pain. Troponins were negative. She continued with sinus congestion, yellowish drainage, cough, feverishness, headache, watery eyes, and scratchy throat for 2 weeks. She's had various antibiotics for sinus infections most of which were not tolerated due to GI side effects. She was referred to [facility] for dysphagia, nausea and was scheduled for more tests. GI provider started her on transderm scopolamine. She seemed to indicate sucralfate was prescribed but I did not see this in medication reconciliation. Review of Systems Per HPI. 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 naratriptan (AMERGE) 2.5 mg tablet Take 1 tablet (2.5 mg) by mouth as needed. 2.5 mg at onset of headache, may repeat in 4 hours if needed promethazine (PHENERGAN) 25 mg tablet Take 0.5-1 tablets by mouth every 6 hours as needed. diclofenac, EC, (VOLTAREN) 50 mg EC tablet Take 1 tablet by mouth two times a day as needed. fluticasone (FLONASE) 50 mcg/actuation nasal spray Use 2 Sprays in each nostril once daily. Rinse mouth after use. cholecalciferol (VITAMIN D3) 1,000 unit tab tablet Take 1 tablet by mouth once daily. loperamide (ANTI-DIARRHEAL) 2 mg cap(s) Take 1 capsule by mouth four times a day as needed for diarrhea. dilTIAZem CD (CARTIA XT) 180 mg 24 hr capsule Take 1 capsule by mouth once daily. topiramate (TOPAMAX) 100 mg tablet TAKE 2 TABLETS TWICE A DAY IN THE MORNING AND AT BEDTIME pantoprazole DR (PROTONIX) 40 mg tablet Take 1 tablet by mouth two times a day before meals at 6 am and 4 pm. Take on empty stomach, 1/2 hr before meal. cyclobenzaprine (FLEXERIL) 10 mg tablet Take 1 tablet by mouth at bedtime as needed for muscle spasm or pain. ibuprofen (MOTRIN) 800 mg tablet Take 1 tablet by mouth every 8 hours as needed for pain. Take with food. No current facility-administered medications for this visit. Objective BP 96/60 (BP Site: Left Arm, BP Position: Sitting, BP Cuff Size: Large Adult) Pulse 92 Temp 37.7 C (99.9 F) (Temporal) Resp 16 Wt 61.7 kg (136 lb 0.4 oz) LMP 10/18/2006 BMI 23.35 kg/m Physical Exam Constitutional: General: She is not in acute distress. Appearance: She is ill-appearing. She is not toxic-appearing. HENT: Right Ear: Tympanic membrane normal. Left Ear: Tympanic membrane normal. Nose: Mucosal edema and congestion present. Right Turbinates: Swollen. Left Turbinates: Swollen. Right Sinus: Maxillary sinus tenderness present. Left Sinus: Maxillary sinus tenderness present. Cardiovascular: Rate and Rhythm: Normal rate and regular rhythm. Pulmonary: Effort: No respiratory distress. Breath sounds: No wheezing or rales. Musculoskeletal: Right lower leg: No edema. Left lower leg: No edema. Lymphadenopathy: Cervical: No cervical adenopathy. Neurological: Mental Status: She is alert. ER report reviewed. Assessment and Plan 1. Acute non-recurrent sinusitis, unspecified location - ICD9: 461.9, ICD10: J01.90 (primary diagnosis) - Will begin treatment with as per antibiotic as written, see orders - CEPHALEXIN 500 MG CAPSULE - PREDNISONE 20 MG TABLET Discussed medication dosage, usage, goals of therapy, and side effects. 2. Watery eyes - ICD9: 375.20, ICD10: H04.203 See above. 3. Dysphagia, unspecified type - ICD9: 787.20, ICD10: R13.10 Medication list updated. - SCOPOLAMINE 1 MG OVER 3 DAYS TRANSDERMAL PATCH 4. Gastroesophageal reflux disease, unspecified whether esophagitis present - ICD9: 530.81, ICD10: K21.9 - See GI as scheduled. 5. Nausea and vomiting, unspecified vomiting type - ICD9: 787.01, ICD10: R11.2 See above. - SCOPOLAMINE 1 MG OVER 3 DAYS TRANSDERMAL PATCH Nirav Rivera MD documented in this encounter [facility] 08-27-2024 Miscellaneous Notes Records obtained from [facility]. Neyda Templeton LPN Pt called in and reports she was in [facility] ER 08/25/24 for chest pain. It sounds like they thought it was more gastric than cardiac. They sent her home with a Scopolamine patch and Dicyclomine 10 mg BID. Pt state she threw up after she left the ER after she ate. Then yesterday she was bringing up thick mucousy stuff. Pt states she took the Scopolamine patch off, but didn't put another one on. 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 Pt scheduled with Dr Rivera tomorrow. Please make sure provider has records from [facility] ER. documented in this encounter [facility] 08-27-2024 Telephone encounter Note Records obtained from [facility]. Neyda Templeton LPN [facility] 08-27-2024 Telephone encounter Note Pt called in and reports she was in [facility] ER 08/25/24 for chest pain. It sounds like they thought it was more gastric than cardiac. They sent her home with a Scopolamine patch and Dicyclomine 10 mg BID. Pt state she threw up after she left the ER after she ate. Then yesterday she was bringing up thick mucousy stuff. Pt states she took the Scopolamine patch off, but didn't put another one on. 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 Pt scheduled with Dr Rivera tomorrow. Please make sure provider has records from [facility] ER. [facility] 08-22-2024 Telephone encounter Note Patient called back and scheduled Luzma Espinoza MA [facility] 08-22-2024 Miscellaneous Notes Patient called back and scheduled Luzma Espinoza MA 1st attempt LVM to schedule NM Gastric Emptying Study Please help schedule gastric emptying study Patient notified of results and recommendations for another test. Patient stated that she is right now in the GI doctors office now Alisson Varela LPN Please let the patient know the CT scan of her abdomen was negative. No indications for cause of symptoms. I ordered another test to evaluate the nausea and vomiting called a gastric emptying study. This looks to see how long it takes for food to pass through the stomach and into the small intestine.She should also schedule with GI as soon as possible as discussed yesterday. Cecilia Sparks APRN.BONY Patient has CT scan completed at [facility] 08/14/24. Report give to nurse for Cecilia Sparks. documented in this encounter [facility] 08-18-2024 Telephone encounter Note 1st attempt LVM to schedule NM Gastric Emptying Study [facility] 08-15-2024 Telephone encounter Note Please help schedule gastric emptying study Patient notified of results and recommendations for another test. Patient stated that she is right now in the GI doctors office now Alisson Varela LPN [facility] 08-15-2024 Telephone encounter Note Please let the patient know the CT scan of her abdomen was negative. No indications for cause of symptoms. I ordered another test to evaluate the nausea and vomiting called a gastric emptying study. This looks to see how long it takes for food to pass through the stomach and into the small intestine.She should also schedule with GI as soon as possible as discussed yesterday. Cecilia Sparks APRN.BONY [facility] 08-15-2024 Telephone encounter Note Patient has CT scan completed at [facility] 08/14/24. Report give to nurse for Cecilia Sparks. [facility] 08-14-2024 Instructions Cecilia Sparks APRN.CNP - 08/14/2024 12:[address] Rucker's (admissions gate attendant) office today to schedule an appointment Go to ER or call 911 if you develop severe abdominal pain, vomiting that won't stop, high fever, rigid/hard abdomen documented in this encounter [facility] 08-14-2024 Note HNO ID: [id number] Author: CECILIA SPARKS APRN.CNP Service: ? Author Type: Nurse Practitioner Type: Progress Notes Filed: 08/14/2024 13:04 Note Text: CC: Patient presents with: Follow Up: still not feeling well, nausea,stomach ache left side, wants letter stating she is not contagious HPI Saulo Geiger is a 64 year old female who presents today for above. She was seen on 08/04 for one month history of cough, SOB, upper respiratory symptoms, nausea, and vomiting. She had been treated with Augmentin, Doxycycline and Bactrim without much if any improvement. She had normal chest x-ray on 08/01. EKG showed normal sinus rhythm. Patient insisted on treatment with further antibiotics and was prescribed a Z pack. CBC was normal however CMP revealed moderately elevated liver enzymes. Stat abdominal ultrasound showed slight increase in echogenicity of the liver but was otherwise normal. She also had pelvic ultrasound ordered by gynecology for unrelated symptoms that was normal. Hepatitis panel negative except Hep B surface antibody was positive. Iron studies, amylase and lipase were normal as well. Today she reports respiratory symptoms have resolved but nausea and vomiting have not. She also reports lower abdominal pain that is worsening. She is unclear how long ago the pain started. She had a CT abdomen and pelvis in April 2024 for LLQ abdominal pain but she doesn't remember this. She also had evaluation with EGD and barium swallow in May for evaluation of dysphagia. Tests indicated reactive gastropathy of antral mucosa and dysmotility with delay between oral cavity and oropharynx; H.pylori was negative. She was referred to GI and orders faxed to Dr. Rucker but she never heard from his office to schedule. She has a history of GERD but denies heartburn or reflux. She takes Protonix 40 mg BID as ordered. Review of Systems Constitutional: Positive for chills and fatigue. Negative for diaphoresis, fever and unexpected weight change. HENT: Positive for trouble swallowing. Negative for congestion, ear pain, sinus pressure, sinus pain and sore throat. Respiratory: Positive for shortness of breath. Negative for cough and wheezing. Cardiovascular: Negative for chest pain, palpitations and leg swelling. Gastrointestinal: Positive for diarrhea (chronic, intermittent). Negative for abdominal distention, blood in stool and constipation (Last BM two days ago, normal for patient). Genitourinary: Negative for decreased urine volume, difficulty urinating, frequency and urgency. Neurological: Negative for dizziness, syncope, weakness and light-headedness. PAST MEDICAL HISTORY Diagnosis Date Bee sting allergy 04/28/2008 Concussion with no loss of consciousness Displacement of intervertebral disc, site unspecified, without myelopathy 11/30/2006 [facility] claim Disturbance of skin sensation Esophageal reflux Headaches migraines Hypercholesteremia Mental disorder anxiety Multiple rib fractures 2012 Fell down stairs to basement-- 5th and 6th rib fractures and left great toe fracture Snoring Sprain of lumbosacral (joint) (ligament) Sprain of neck [facility] claim Sprain of thoracic region [facility] claim Tubular adenoma of colon 07/29/2015 Dr. Caban Variants of migraine, not elsewhere classified, without mention of intractable migraine without mention of status migrainosus PAST SURGICAL HISTORY Procedure Laterality Date CHOLECYSTECTOMY 02/26/2017 Cholecystectomy; [facility] with Dr. Alejo COLONOSCOPY FLX DX W/COLLJ SPEC WHEN PFRMD 07/29/2015 Colonoscopy COLONOSCOPY SCREENING 2019 COLONOSCOPY SCREENING 06/28/2023 repeat in 10 years, Dr. Alejo EGD 05/08/2024 ESOPHAGOGASTRODUODENOSCOPY TRANSORAL DIAGNOSTIC 07/29/2015 EGD ESOPHAGOGASTRODUODENOSCOPY TRANSORAL DIAGNOSTIC 04/05/2017 EGD PAST SURGICAL HISTORY OF bilat feet - reconstruction ALLERGIES Bee Venom Protein (Honey Bee), Morphine, Relafen [Nabumetone], Venom-Honey Bee, and Zolpidem MEDICATIONS ALPRAZolam (XANAX) 0.5 mg tablet Take 0.5 mg by mouth at bedtime as needed. naratriptan (AMERGE) 2.5 mg tablet Take 1 tablet (2.5 mg) by mouth as needed. 2.5 mg at onset of headache, may repeat in 4 hours if needed promethazine (PHENERGAN) 25 mg tablet Take 0.5-1 tablets by mouth every 6 hours as needed. diclofenac, EC, (VOLTAREN) 50 mg EC tablet Take 1 tablet by mouth two times a day as needed. fluticasone (FLONASE) 50 mcg/actuation nasal spray Use 2 Sprays in each nostril once daily. Rinse mouth after use. cholecalciferol (VITAMIN D3) 1,000 unit tab tablet Take 1 tablet by mouth once daily. loperamide (ANTI-DIARRHEAL) 2 mg cap(s) Take 1 capsule by mouth four times a day as needed for diarrhea. dilTIAZem CD (CARTIA XT) 180 mg 24 hr capsule Take 1 capsule by mouth once daily. topiramate (TOPAMAX) 100 mg tablet TAKE 2 TABLETS TWICE A DAY IN THE MORNING AND AT BEDTIME pantoprazole DR (PROTONIX) 40 mg (more content not included)... [facility] 08-14-2024 History of Present illness Narrative CC: Patient presents with: Follow Up: still not feeling well, nausea,stomach ache left side, wants letter stating she is not contagious HPI Saulo Geiger is a 64 year old female who presents today for above. She was seen on 08/04 for one month history of cough, SOB, upper respiratory symptoms, nausea, and vomiting. She had been treated with Augmentin, Doxycycline and Bactrim without much if any improvement. She had normal chest x-ray on 08/01. EKG showed normal sinus rhythm. Patient insisted on treatment with further antibiotics and was prescribed a Z pack. CBC was normal however CMP revealed moderately elevated liver enzymes. Stat abdominal ultrasound showed slight increase in echogenicity of the liver but was otherwise normal. She also had pelvic ultrasound ordered by gynecology for unrelated symptoms that was normal. Hepatitis panel negative except Hep B surface antibody was positive. Iron studies, amylase and lipase were normal as well. Today she reports respiratory symptoms have resolved but nausea and vomiting have not. She also reports lower abdominal pain that is worsening. She is unclear how long ago the pain started. She had a CT abdomen and pelvis in April 2024 for LLQ abdominal pain but she doesn't remember this. She also had evaluation with EGD and barium swallow in May for evaluation of dysphagia. Tests indicated reactive gastropathy of antral mucosa and dysmotility with delay between oral cavity and oropharynx; H.pylori was negative. She was referred to GI and orders faxed to Dr. Rucker but she never heard from his office to schedule. She has a history of GERD but denies heartburn or reflux. She takes Protonix 40 mg BID as ordered. Review of Systems Constitutional: Positive for chills and fatigue. Negative for diaphoresis, fever and unexpected weight change. HENT: Positive for trouble swallowing. Negative for congestion, ear pain, sinus pressure, sinus pain and sore throat. Respiratory: Positive for shortness of breath. Negative for cough and wheezing. Cardiovascular: Negative for chest pain, palpitations and leg swelling. Gastrointestinal: Positive for diarrhea (chronic, intermittent). Negative for abdominal distention, blood in stool and constipation (Last BM two days ago, normal for patient). Genitourinary: Negative for decreased urine volume, difficulty urinating, frequency and urgency. Neurological: Negative for dizziness, syncope, weakness and light-headedness. PAST MEDICAL HISTORY Diagnosis Date Bee sting allergy 04/28/2008 Concussion with no loss of consciousness Displacement of intervertebral disc, site unspecified, without myelopathy 11/30/2006 [facility] claim Disturbance of skin sensation Esophageal reflux Headaches migraines Hypercholesteremia Mental disorder anxiety Multiple rib fractures 2012 Fell down stairs to basement-- 5th and 6th rib fractures and left great toe fracture Snoring Sprain of lumbosacral (joint) (ligament) Sprain of neck [facility] claim Sprain of thoracic region [facility] claim Tubular adenoma of colon 07/29/2015 Dr. Caban Variants of migraine, not elsewhere classified, without mention of intractable migraine without mention of status migrainosus PAST SURGICAL HISTORY Procedure Laterality Date CHOLECYSTECTOMY 02/26/2017 Cholecystectomy; [facility] with Dr. Alejo COLONOSCOPY FLX DX W/COLLJ SPEC WHEN PFRMD 07/29/2015 Colonoscopy COLONOSCOPY SCREENING 2019 COLONOSCOPY SCREENING 06/28/2023 repeat in 10 years, Dr. Alejo EGD 05/08/2024 ESOPHAGOGASTRODUODENOSCOPY TRANSORAL DIAGNOSTIC 07/29/2015 EGD ESOPHAGOGASTRODUODENOSCOPY TRANSORAL DIAGNOSTIC 04/05/2017 EGD PAST SURGICAL HISTORY OF bilat feet - reconstruction ALLERGIES Bee Venom Protein (Honey Bee), Morphine, Relafen [Nabumetone], Venom-Honey Bee, and Zolpidem MEDICATIONS ALPRAZolam (XANAX) 0.5 mg tablet Take 0.5 mg by mouth at bedtime as needed. naratriptan (AMERGE) 2.5 mg tablet Take 1 tablet (2.5 mg) by mouth as needed. 2.5 mg at onset of headache, may repeat in 4 hours if needed promethazine (PHENERGAN) 25 mg tablet Take 0.5-1 tablets by mouth every 6 hours as needed. diclofenac, EC, (VOLTAREN) 50 mg EC tablet Take 1 tablet by mouth two times a day as needed. fluticasone (FLONASE) 50 mcg/actuation nasal spray Use 2 Sprays in each nostril once daily. Rinse mouth after use. cholecalciferol (VITAMIN D3) 1,000 unit tab tablet Take 1 tablet by mouth once daily. loperamide (ANTI-DIARRHEAL) 2 mg cap(s) Take 1 capsule by mouth four times a day as needed for diarrhea. dilTIAZem CD (CARTIA XT) 180 mg 24 hr capsule Take 1 capsule by mouth once daily. topiramate (TOPAMAX) 100 mg tablet TAKE 2 TABLETS TWICE A DAY IN THE MORNING AND AT BEDTIME pantoprazole DR (PROTONIX) 40 mg tablet Take 1 tablet by mouth two times a day before meals at 6 am and 4 pm. Take on empty stomach, 1/2 hr before meal. cyclobenzaprine (FLEXERIL) 10 mg tablet Take 1 tablet by mouth at bedtime as needed for muscle spasm or pain. ibuprofen (MOTRIN) 800 mg tablet Take 1 tablet by mouth every 8 hours as needed for pain. Take with food. FAMILY HISTORY Problem Relation Age of Onset Breast Cancer Mother Diabetes Mother Heart Mother Cancer Father liver ca Diabetes Sister Social History Tobacco Use Smoking status: Former Current packs/day: 0.00 Types: Cigarettes Quit date: 07/21/2015 Years since quittin.0 Smokeless tobacco: Never Tobacco comments: was smoking less than one half pack; had cut back until able to quit 08/10/2009 Vaping Use Vaping status: Never Used Substance Use Topics Alcohol use: Yes Comment: rarely Drug use: No BP 128/62 (BP Site: Left Arm, BP Position: Sitting, BP Cuff Size: Large Adult) Pulse 83 Resp 14 Ht 162.6 cm (5' 4) Wt 62.6 kg (138 lb 0.1 oz) LMP 10/18/2006 SpO2 96% BMI 23.69 kg/m Physical Exam Vitals reviewed. Constitutional: General: She is not in acute distress. Appearance: Normal appearance. She is not ill-appearing or toxic-appearing. HENT: Mouth/Throat: Mouth: Mucous membranes are moist. Pharynx: Oropharynx is clear. Eyes: Conjunctiva/sclera: Conjunctivae normal. Cardiovascular: Rate and Rhythm: Normal rate and regular rhythm. Pulses: Normal pulses. Heart sounds: Normal heart sounds. No murmur heard. Pulmonary: Effort: Pulmonary effort is normal. Breath sounds: Normal breath sounds. No wheezing, rhonchi or rales. Abdominal: General: Bowel sounds are increased. There is no distension. Palpations: Abdomen is soft. There is no hepatomegaly, splenomegaly or mass. Tenderness: There is abdominal tenderness (generalized but worse in the LLQ abdomen). There is no right CVA tenderness, left CVA tenderness, guarding or rebound. Hernia: No hernia is present. Musculoskeletal: Right lower leg: No edema. Left lower leg: No edema. Lymphadenopathy: Cervical: No cervical adenopathy. Skin: General: Skin is warm and dry. Coloration: Skin is not jaundiced or pale. Neurological: Mental Status: She is alert. Psychiatric: Mood and Affect: Mood is anxious. DATA REVIEWED: Most recent labs, imaging, EGD, esophagram and colonoscopy Latest Ref Rng 08/04/2024 08/13/2024 Protein, Total 6.3 - 8.0 g/dL 7.0 7.1 Albumin 3.9 - 4.9 g/dL 4.7 4.7 Calcium 8.5 - 10.2 mg/dL 9.7 9.5 Bilirubin, Total 0.2 - 1.3 mg/dL 0.2 0.3 Alkaline Phosphatase 34 - 123 U/L 183 (H) 127 (H) AST 13 - 35 U/L 53 (H) 17 ALT 7 - 38 U/L 271 (H) 31 Glucose 74 - 99 mg/dL 103 (H) 94 BUN 7 - 21 mg/dL 20 24 (H) Creatinine 0.58 - 0.96 mg/dL 1.17 (H) 1.14 (H) Sodium 136 - 144 mmol/L 144 140 Potassium 3.7 - 5.1 mmol/L 3.9 4.1 Chloride 98 - 107 mmol/L 111 (H) 108 (H) CO2 22 - 30 mmol/L 20 (L) 17 (L) Anion Gap 8 - 15 mmol/L 13 15 eGFR >=60 mL/min/1.73m 53 (L) 55 (L) WBC 3.70 - 11.00 k/uL 6.89 RBC 3.90 - 5.20 m/uL 4.07 Hemoglobin 11.5 - 15.5 g/dL 13.2 Hematocrit 36.0 - 46.0 % 41.8 MCV 80.0 - 100.0 fL 102.7 (H) MCH 26.0 - 34.0 pg 32.4 MCHC 30.5 - 36.0 g/dL 31.6 RDW-CV 11.5 - 15.0 % 13.3 Platelet Count 150 - 400 k/uL 235 MPV 9.0 - 12.7 fL 10.2 Absolute nRBC <0.01 k/uL <0.01 Latest Ref Rng 08/05/2024 Iron 41 - 186 ug/dL 111 TIBC 232 - 386 ug/dL 336 Transferrin Saturation 15.0 - 57.0 % 33.0 Hep B Surface Ab, Qual Positive Hep B Surf Ab Quant mIU/mL 195.74 Ferritin 14.7 - 205.1 ng/mL 65.3 Amylase 30 - 104 U/L 96 Lipase 16 - 61 U/L 45 Hep A Ab, IgM Negative Negative Hep B Core Ab, IgM Negative Negative Hep B Surface Ag Negative Negative Hep B Surface Ag Negative Negative Hep C Antibody IA Negative Negative Hep C Antibody IA Negative Negative Hep B Core Ab, Total Negative Positive ! US ABD RIGHT UPPER QUADRANT (Acc#[id number]) (Order [id number]) 08/05/2024 1:53 PM - Radiology, Oru In Impression IMPRESSION: Slight increase in echogenicity of the liver. Status post cholecystectomy. PELVIC US WHI (Acc#[id number]) (Order [id number]) 08/06/2024 1:58 PM - [facility], Scanning In Results-Findings Impression Normal appearing anteflexed uterus that measures 54 mm x 18 mm x 34 mm. Endometrium is avascular, heterogeneous and measures 1.5 mm. Both ovaries are visualized and appear normal. Right adnexa contains two benign-appearing cysts. 1. Size 7 mm x 7 mm x 7 mm. Simple paraovarian/paratubal cyst 2. Size 7 mm x 8 mm x 6 mm. Simple paraovarian/paratubal cyst Left adnexa contains two benign-appearing cysts. 1. Size 10 mm x 10 mm x 9 mm. Simple paraovarian/paratubal cyst 2. Size 11 mm x 11 mm x 9 mm. Simple paraovarian/paratubal cyst There is no free fluid visualized in the peritoneal cavity. Recommendations O-RADS 2 simple cysts, almost certainly benign. No follow up imaging is needed. CT ABD/PEL WO IVCON (Acc#[id number]) (Order [id number]) 05/07/2024 12:47 PM - Radiology, Oru In Impression IMPRESSION: No acute process in the abdomen or pelvis. ASSESSMENT/PLAN: 1. Generalized abdominal pain - ICD9: 789.07, ICD10: R10.84 (primary diagnosis) Etiology unclear. Most of these symptoms seem to be chronic but patient is unable to recall the timeline. Symptoms are worsening. Recent labs and imaging unremarkable, liver enzymes have normalized. Exam today benign except for moderate abdominal tenderness with palpation. Differential Diagnosis includes GERD, Gastritis, Diverticulitis, Mesenteric ischemia, and pancreatitis - CT ABD/PEL W IVCON - IV CONTRAST (RADIOLOGY PROCEDURE) - ENTERIC CONTRAST (RADIOLOGY PROCEDURE) She was provided with Dr. Rucker's office phone number, encouraged to call right away for appointment. We can re-fax referral information if needed. Continue with current medications Follow-up and further recommendations pending results 2. Intractable vomiting - ICD9: 536.2, ICD10: R11.10 As above - CT ABD/PEL W IVCON - IV CONTRAST (RADIOLOGY PROCEDURE) - NOT ON NOV - ENTERIC CONTRAST (RADIOLOGY PROCEDURE) - NOT ON NOV 3. Upper respiratory tract infection, unspecified type - ICD9: 465.9, ICD10: J06.9 resolved Prescription instructions reviewed with patient as applicable. Potential red flag symptoms discussed with the patient. Reviewed appropriate action plan to take if red flag symptoms occur. Patient agreeable to treatment plan. Cecilia Sparks APRN.BONY documented in this encounter [facility] 08-13-2024 Telephone encounter Note Patient scheduled 08/14 with NH as a 40 min. Kimi Champion MA [facility] 08-13-2024 Miscellaneous Notes Patient scheduled 08/14 with NH as a 40 min. Kimi Champion MA Schedule follow-up this week, 40 min please Cecilia Sparks APRN.BONY Pt wants to know if there is a special diet she should follow. She's tried toast, mashed potatoes but everything usually comes back up. Pt is asking what the next step is. She will be getting lab done Weds. Holly Anderson LPN Pt had been advised of this message. Pt was confused by the Hep B. Reiterated to pt what provider documented. Pt reports she is so sick and is having so much pain still on the upper right and left side of abdomen. Pt reports she cannot eat anything because she will vomit. Pt also reports she has no appetite. Pt reports all she can do is lay around. Holly Anderson LPN documented in this encounter [facility] 08-13-2024 Telephone encounter Note Schedule follow-up this week, 40 min please Cecilia Sparks APRN.[employer] TECHNICIAN [facility] 08-11-2024 Telephone encounter Note Pt wants to know if there is a special diet she should follow. She's tried toast, mashed potatoes but everything usually comes back up. Pt is asking what the next step is. She will be getting lab done Weds. Holly Anderson LPN [facility] 08-11-2024 Telephone encounter Note Pt had been advised of this message. Pt was confused by the Hep B. Reiterated to pt what provider documented. Pt reports she is so sick and is having so much pain still on the upper right and left side of abdomen. Pt reports she cannot eat anything because she will vomit. Pt also reports she has no appetite. Pt reports all she can do is lay around. Holly Anderson LPN [facility] 08-06-2024 Telephone encounter Note TC to pt. She does not use mychart. Notified and verbalized understanding of results. Will have labs rechecked in 1 week. [facility] 08-06-2024 Miscellaneous Notes TC to pt. She does not use mychart. Notified and verbalized understanding of results. Will have labs rechecked in 1 week. I sent patient a My chart message regarding her test results Cecilia Sparks APRN.BONY Patient calls to ask if provider has got a chance to review US and lab results from yesterday. Notified patient labs are still pending and provider might be waiting for those results prior to advising. Patient verbalizes understanding and asking for a call back at [phone] once reviewed. Chyna Sotelo RN documented in this encounter [facility] 08-06-2024 Telephone encounter Note Patient notified. Isabell Desir RN [facility] 08-06-2024 Miscellaneous Notes Patient notified. Isabell Desir RN Please let the patient know that her pelvic ultrasound shows 2 small cyst on the left side. The cyst are less than 1 cm in size and most likely not the cause of her pain on that left side. No further follow-up is needed. Ev Finn APRN.BONY documented in this encounter [facility] 08-06-2024 Telephone encounter Note Please let the patient know that her pelvic ultrasound shows 2 small cyst on the left side. The cyst are less than 1 cm in size and most likely not the cause of her pain on that left side. No further follow-up is needed. Ev Finn APRN.BONY [facility] Work Phone: 08-06-2024 Telephone encounter Note I sent patient a My chart message regarding her test results Cecilia Sparks APRN.CNP [facility] 08-06-2024 Note HNO ID: [id number] Author: CT BAILON MD Service: ? Author Type: Physician Type: Progress Notes Filed: 08/06/2024 13:55 Note Text: Saulo Geiger is a 64 year old female who presented for pick remover ultrasound today. Encounter Diagnosis ICD-10-CM 1. Pelvic pain in female R10.2 Please see report under imaging tab. Ct Bailon MD August 06, 2024 1:50 PM [facility] 08-06-2024 History of Present illness Narrative Saulo Geiger is a 64 year old female who presented for pick remover ultrasound today. Encounter Diagnosis ICD-10-CM 1. Pelvic pain in female R10.2 Please see report under imaging tab. Ct Bailon MD August 06, 2024 1:50 PM documented in this encounter [facility] 08-06-2024 Telephone encounter Note Patient calls to ask if provider has got a chance to review US and lab results from yesterday. Notified patient labs are still pending and provider might be waiting for those results prior to advising. Patient verbalizes understanding and asking for a call back at [phone] once reviewed. Chyna Sotelo RN [facility] 08-05-2024 Note HNO ID: [id number] Author: BEULAH RONDON RDMS Service: ? Author Type: Retail Training Manager Type: Progress Notes Filed: 08/06/2024 16:05 Note Text: Radiology Service Progress Note PATIENT NAME: Saulo Geiger DATE OF SERVICE: August 06, 2024 TIME: 4:04 PM PATIENT IDENTITY VERIFICATION COMPLETED USING TWO (2) IDENTIFIERS: Name and Date of confirmed by patient verbally. FALL SCREENING: Has the patient had 2 falls in the last year or 1 fall with injury or currently using an Ambulatory Assistive Device (Walker, Cane, Wheelchair, Crutches, etc.)? No PATIENT GENDER DATA: Female. status: : No status: NO. PATIENT RELEVANT IMPLANT DATA REVIEWED: Yes PATIENT PRESENTS WITH AN IMPLANTABLE OR ATTACHED SEWING MACHINE ATTACHMENT TESTER: No RADIOLOGY DEPARTMENT: Ultrasound PERIPHERAL IV DATA: Not applicable SIGNED BY: Beulah Rondon RDMS T August 06, 2024 4:04 PM [facility] 08-05-2024 Telephone encounter Note Pt notified, verbalized understanding. Pt going for pelvic us today - will schedule additional US while there and have labs done. [facility] 08-05-2024 Miscellaneous Notes Pt notified, verbalized understanding. Pt going for pelvic us today - will schedule additional US while there and have labs done. Please let the patient know her labs looked good except her liver enzymes were moderately elevated which is a new finding. The clinical significance of this is not known. Needs further evaluation with additional labs and ultrasound of the liver. Cecilia Sparks APRN.BONY documented in this encounter [facility] 08-05-2024 Telephone encounter Note Please let the patient know her labs looked good except her liver enzymes were moderately elevated which is a new finding. The clinical significance of this is not known. Needs further evaluation with additional labs and ultrasound of the liver. Cecilia Sparks APRN.CNP [facility] 08-04-2024 Note HNO ID: [id number] Author: CECILIA SPARKS APRN.CNP Service: ? Author Type: Nurse Practitioner Type: Progress Notes Filed: 08/04/2024 15:49 Note Text: CC: Patient presents with: Sinus Problem HPI Saulo Geiger is a 64 year old female who presents today for above. Sinus symptoms started around 07/01. She was treated with Augmentin, then Doxycycline due to failure to improve. Patient could not tolerate Doxycycline and this was switched to Bactrim on 07/18. She called on 08/01 to report symptoms still had not improved. Chest x-ray was ordered, results were negative. Today patient reports symptoms are stable. Symptoms include: nausea, vomiting, non-productive cough, headache, yellow nasal drainage, fatigue, poor appetite, weakness, SOB with mild exertion, fatigues easily and positional lightheadedness. She denies chest pain, palpitations, edema, PND, orthopnea, hemoptysis, feeling faint or syncope. No history of respiratory disease, seasonal/environmental allergies or heart disease. She does not smoke. She has not been checked for COVID since symptoms started. She has chronic abdominal pain and diarrhea, no worse than usual. She denies nausea or vomiting prior to respiratory illness but she does have phenergan to use as needed, this is not helping. Review of Systems Constitutional: Negative for chills, diaphoresis, fever and unexpected weight change. HENT: Negative for sinus pressure and sinus pain. Eyes: Positive for discharge (watery). Respiratory: Negative for choking, chest tightness, wheezing and stridor. Gastrointestinal: Negative for abdominal distention, blood in stool and constipation. Genitourinary: Negative for decreased urine volume and difficulty urinating. Skin: Negative for pallor. Neurological: Negative for dizziness, tremors, facial asymmetry, speech difficulty and numbness. PAST MEDICAL HISTORY Diagnosis Date Bee sting allergy 04/28/2008 Concussion with no loss of consciousness Displacement of intervertebral disc, site unspecified, without myelopathy 11/30/2006 [facility] claim Disturbance of skin sensation Esophageal reflux Headaches migraines Hypercholesteremia Mental disorder anxiety Multiple rib fractures 2012 Fell down stairs to basement-- 5th and 6th rib fractures and left great toe fracture Snoring Sprain of lumbosacral (joint) (ligament) Sprain of neck [facility] claim Sprain of thoracic region [facility] claim Tubular adenoma of colon 07/29/2015 Dr. Caban Variants of migraine, not elsewhere classified, without mention of intractable migraine without mention of status migrainosus PAST SURGICAL HISTORY Procedure Laterality Date CHOLECYSTECTOMY 02/26/2017 Cholecystectomy; [facility] with Dr. Alejo COLONOSCOPY FLX DX W/COLLJ SPEC WHEN PFRMD 07/29/2015 Colonoscopy COLONOSCOPY SCREENING 2019 COLONOSCOPY SCREENING 06/28/2023 repeat in 10 years, Dr. Alejo EGD 05/08/2024 ESOPHAGOGASTRODUODENOSCOPY TRANSORAL DIAGNOSTIC 07/29/2015 EGD ESOPHAGOGASTRODUODENOSCOPY TRANSORAL DIAGNOSTIC 04/05/2017 EGD PAST SURGICAL HISTORY OF bilat feet - reconstruction ALLERGIES Bee Venom Protein (Honey Bee), Morphine, Relafen [Nabumetone], Venom-Honey Bee, and Zolpidem MEDICATIONS ALPRAZolam (XANAX) 0.5 mg tablet Take 0.5 mg by mouth at bedtime as needed. naratriptan (AMERGE) 2.5 mg tablet Take 1 tablet (2.5 mg) by mouth as needed. 2.5 mg at onset of headache, may repeat in 4 hours if needed promethazine (PHENERGAN) 25 mg tablet Take 0.5-1 tablets by mouth every 6 hours as needed. diclofenac, EC, (VOLTAREN) 50 mg EC tablet Take 1 tablet by mouth two times a day as needed. fluticasone (FLONASE) 50 mcg/actuation nasal spray Use 2 Sprays in each nostril once daily. Rinse mouth after use. cholecalciferol (VITAMIN D3) 1,000 unit tab tablet Take 1 tablet by mouth once daily. loperamide (ANTI-DIARRHEAL) 2 mg cap(s) Take 1 capsule by mouth four times a day as needed for diarrhea. dilTIAZem CD (CARTIA XT) 180 mg 24 hr capsule Take 1 capsule by mouth once daily. topiramate (TOPAMAX) 100 mg tablet TAKE 2 TABLETS TWICE A DAY IN THE MORNING AND AT BEDTIME pantoprazole DR (PROTONIX) 40 mg tablet Take 1 tablet by mouth two times a day before meals at 6 am and 4 pm. Take on empty stomach, 1/2 hr before meal. cyclobenzaprine (FLEXERIL) 10 mg tablet Take 1 tablet by mouth at bedtime as needed for muscle spasm or pain. ibuprofen (MOTRIN) 800 mg tablet Take 1 tablet by mouth every 8 hours as needed for pain. Take with food. FAMILY HISTORY Problem Relation Age of Onset Breast Cancer Mother Diabetes Mother Heart Mother Cancer Father liver ca Diabetes Sister Social History Tobacco Use Smoking status: Former Current packs/day: 0.00 Types: Cigarettes Quit date: 07/21/2015 Years since quittin.0 Smokeless tobacco: Never Tobacco comments: was smoking less than one half pack; had cut back until able to quit 08/10/2009 V (more content not included)... [facility] 08-04-2024 History of Present illness Narrative CC: Patient presents with: Sinus Problem HPI Saulo Geiger is a 64 year old female who presents today for above. Sinus symptoms started around 07/01. She was treated with Augmentin, then Doxycycline due to failure to improve. Patient could not tolerate Doxycycline and this was switched to Bactrim on 07/18. She called on 08/01 to report symptoms still had not improved. Chest x-ray was ordered, results were negative. Today patient reports symptoms are stable. Symptoms include: nausea, vomiting, non-productive cough, headache, yellow nasal drainage, fatigue, poor appetite, weakness, SOB with mild exertion, fatigues easily and positional lightheadedness. She denies chest pain, palpitations, edema, PND, orthopnea, hemoptysis, feeling faint or syncope. No history of respiratory disease, seasonal/environmental allergies or heart disease. She does not smoke. She has not been checked for COVID since symptoms started. She has chronic abdominal pain and diarrhea, no worse than usual. She denies nausea or vomiting prior to respiratory illness but she does have phenergan to use as needed, this is not helping. Review of Systems Constitutional: Negative for chills, diaphoresis, fever and unexpected weight change. HENT: Negative for sinus pressure and sinus pain. Eyes: Positive for discharge (watery). Respiratory: Negative for choking, chest tightness, wheezing and stridor. Gastrointestinal: Negative for abdominal distention, blood in stool and constipation. Genitourinary: Negative for decreased urine volume and difficulty urinating. Skin: Negative for pallor. Neurological: Negative for dizziness, tremors, facial asymmetry, speech difficulty and numbness. PAST MEDICAL HISTORY Diagnosis Date Bee sting allergy 04/28/2008 Concussion with no loss of consciousness Displacement of intervertebral disc, site unspecified, without myelopathy 11/30/2006 [facility] claim Disturbance of skin sensation Esophageal reflux Headaches migraines Hypercholesteremia Mental disorder anxiety Multiple rib fractures 2012 Fell down stairs to basement-- 5th and 6th rib fractures and left great toe fracture Snoring Sprain of lumbosacral (joint) (ligament) Sprain of neck [facility] claim Sprain of thoracic region [facility] claim Tubular adenoma of colon 07/29/2015 Dr. Caban Variants of migraine, not elsewhere classified, without mention of intractable migraine without mention of status migrainosus PAST SURGICAL HISTORY Procedure Laterality Date CHOLECYSTECTOMY 02/26/2017 Cholecystectomy; [facility] with Dr. Alejo COLONOSCOPY FLX DX W/COLLJ SPEC WHEN PFRMD 07/29/2015 Colonoscopy COLONOSCOPY SCREENING 2019 COLONOSCOPY SCREENING 06/28/2023 repeat in 10 years, Dr. Alejo EGD 05/08/2024 ESOPHAGOGASTRODUODENOSCOPY TRANSORAL DIAGNOSTIC 07/29/2015 EGD ESOPHAGOGASTRODUODENOSCOPY TRANSORAL DIAGNOSTIC 04/05/2017 EGD PAST SURGICAL HISTORY OF bilat feet - reconstruction ALLERGIES Bee Venom Protein (Honey Bee), Morphine, Relafen [Nabumetone], Venom-Honey Bee, and Zolpidem MEDICATIONS ALPRAZolam (XANAX) 0.5 mg tablet Take 0.5 mg by mouth at bedtime as needed. naratriptan (AMERGE) 2.5 mg tablet Take 1 tablet (2.5 mg) by mouth as needed. 2.5 mg at onset of headache, may repeat in 4 hours if needed promethazine (PHENERGAN) 25 mg tablet Take 0.5-1 tablets by mouth every 6 hours as needed. diclofenac, EC, (VOLTAREN) 50 mg EC tablet Take 1 tablet by mouth two times a day as needed. fluticasone (FLONASE) 50 mcg/actuation nasal spray Use 2 Sprays in each nostril once daily. Rinse mouth after use. cholecalciferol (VITAMIN D3) 1,000 unit tab tablet Take 1 tablet by mouth once daily. loperamide (ANTI-DIARRHEAL) 2 mg cap(s) Take 1 capsule by mouth four times a day as needed for diarrhea. dilTIAZem CD (CARTIA XT) 180 mg 24 hr capsule Take 1 capsule by mouth once daily. topiramate (TOPAMAX) 100 mg tablet TAKE 2 TABLETS TWICE A DAY IN THE MORNING AND AT BEDTIME pantoprazole DR (PROTONIX) 40 mg tablet Take 1 tablet by mouth two times a day before meals at 6 am and 4 pm. Take on empty stomach, 1/2 hr before meal. cyclobenzaprine (FLEXERIL) 10 mg tablet Take 1 tablet by mouth at bedtime as needed for muscle spasm or pain. ibuprofen (MOTRIN) 800 mg tablet Take 1 tablet by mouth every 8 hours as needed for pain. Take with food. FAMILY HISTORY Problem Relation Age of Onset Breast Cancer Mother Diabetes Mother Heart Mother Cancer Father liver ca Diabetes Sister Social History Tobacco Use Smoking status: Former Current packs/day: 0.00 Types: Cigarettes Quit date: 07/21/2015 Years since quittin.0 Smokeless tobacco: Never Tobacco comments: was smoking less than one half pack; had cut back until able to quit 08/10/2009 Vaping Use Vaping status: Never Used Substance Use Topics Alcohol use: Yes Comment: rarely Drug use: No BP 144/82 (BP Site: Left Arm) Pulse 74 Temp 37.1 C (98.8 F) Wt 62.5 kg (137 lb 12.6 oz) LMP 10/18/2006 SpO2 95% BMI 23.24 kg/m Physical Exam Vitals reviewed. Constitutional: General: She is not in acute distress. Appearance: She is ill-appearing. She is not toxic-appearing. HENT: Head: Normocephalic and atraumatic. Right Ear: Tympanic membrane normal. Left Ear: Tympanic membrane normal. Nose: Right Sinus: No maxillary sinus tenderness or frontal sinus tenderness. Left Sinus: No maxillary sinus tenderness or frontal sinus tenderness. Mouth/Throat: Lips: [place]. Mouth: Mucous membranes are moist. Pharynx: Oropharynx is clear. Eyes: Extraocular Movements: Extraocular movements intact. Conjunctiva/sclera: Conjunctivae normal. Pupils: Pupils are equal, round, and reactive to light. Cardiovascular: Rate and Rhythm: Normal rate and regular rhythm. Heart sounds: Normal heart sounds. No murmur heard. Pulmonary: Effort: Pulmonary effort is normal. Breath sounds: Normal breath sounds. No wheezing, rhonchi or rales. Abdominal: General: Bowel sounds are normal. There is no distension. Palpations: Abdomen is soft. Tenderness: There is no abdominal tenderness. There is no right CVA tenderness or left CVA tenderness. Lymphadenopathy: Cervical: No cervical adenopathy. Skin: General: Skin is warm and dry. Neurological: Mental Status: She is alert. Psychiatric: Mood and Affect: Mood is anxious. DATA REVIEWED: Most recent imaging ASSESSMENT/PLAN: 1. Shortness of breath - ICD9: 786.05, ICD10: R06.02 (primary diagnosis) Etiology unclear. Differentials include cardiac, bronchospasm, post viral cough syndrome, sinusitis. No alarm symptoms or exam findings. Chest x-ray normal. Pulse ox and vital signs are stable. - ECG COMPLETE normal sinus rhythm Evaluate further with: - COMPLETE BLOOD COUNT - COMPREHENSIVE METABOLIC PANEL Patient upset that no treatment offered today. Explained to patient it is not recommended to treat without knowing what were are treating. Expressed my concern for worsening GI issues with another antibiotic however patient insistent, especially with holiday weekend coming up. Requesting Zithromax, prescription sent. Discussed potential for antibiotic complications including C-diff and yeast infections, patient verbalized understanding. Follow-up and further recommendations pending results 2. Acute cough - ICD9: 786.2, ICD10: R05.1 As above 3. Nausea and vomiting, unspecified vomiting type - ICD9: 787.01, ICD10: R11.2 As above Prescription instructions reviewed with patient as applicable. Potential red flag symptoms discussed with the patient. Reviewed appropriate action plan to take if red flag symptoms occur. Patient agreeable to treatment plan. Cecilia Sparks APRN.CNP documented in this encounter [facility] 08-04-2024 Telephone encounter Note PATIENT NOTIFIED OF SAME. Still not feeling well. Schedule with Cecilia Sparks at 3:00 pm today. [facility] 08-04-2024 Miscellaneous Notes PATIENT NOTIFIED OF SAME. Still not feeling well. Schedule with Cecilia Sparks at 3:00 pm today. Please let her know that chest xray shows no issues. Cheyenne Gilbert APRN.CNP PATIENT NOTIFIED OF SAME. Okay for a chest xray, order placed, depending on results she might need to follow back up for a recheck in the office. Pt reports she is still sick after trying 3 AB's. Was able to take the 3rd AB, bactrim, without vomiting, but was nauseous the whole time. Reports she has been sick since the middle of June. Still has a cough so bad, it's hard to stop coughing. Reports the cough is productive. Reports nose is runny, has hoarse voice. Reports she is SOB at rest. Reports she is so tired, she has to take 1/2 of a ginsing gummy bear to stay up- if she takes more than a half her heart races. Reports she also takes a senior centrum MVI, and a zinc once daily. Is eating activa yogart. Taking a sinus pill and flonase daily. Reports she has 6 dogs. Did not do a covid test. Wonders if she has walking pneumonia? Should CXR be done? Please advise patient: [phone] documented in this encounter [facility] 08-04-2024 Telephone encounter Note Please let her know that chest xray shows no issues. Cheyenne Gilbert APRN.BONY [facility] 08-01-2024 History of Present illness Narrative Radiology Service Progress Note PATIENT NAME: Saulo Geiger DATE OF SERVICE: August 01, 2024 TIME: 4:49 PM PATIENT IDENTITY VERIFICATION COMPLETED USING TWO (2) IDENTIFIERS: Name and Date of confirmed by patient verbally. FALL SCREENING: Has the patient had 2 falls in the last year or 1 fall with injury or currently using an Ambulatory Assistive Device (Walker, Cane, Wheelchair, Crutches, etc.)? No PATIENT GENDER DATA: Female. status: : No status: NO. PATIENT RELEVANT IMPLANT DATA REVIEWED: Not Applicable PATIENT PRESENTS WITH AN IMPLANTABLE OR ATTACHED SEWING MACHINE ATTACHMENT TESTER: No RADIOLOGY DEPARTMENT: General X-ray: Exam(s) Completed: Chest X-Ray PERIPHERAL IV DATA: Not applicable SIGNED BY: RT Wilber(R) August 01, 2024 4:49 PM documented in this encounter [facility] 08-01-2024 Note HNO ID: [id number] Author: JAZMIN MOTT RT(Nisa) Service: Radiology Author Type: Technologist Type: Progress Notes Filed: 08/01/2024 16:59 Note Text: Radiology Service Progress Note PATIENT NAME: Saulo Geiger DATE OF SERVICE: August 01, 2024 TIME: 4:49 PM PATIENT IDENTITY VERIFICATION COMPLETED USING TWO (2) IDENTIFIERS: Name and Date of confirmed by patient verbally. FALL SCREENING: Has the patient had 2 falls in the last year or 1 fall with injury or currently using an Ambulatory Assistive Device (Walker, Cane, Wheelchair, Crutches, etc.)? No PATIENT GENDER DATA: Female. status: : No status: NO. PATIENT RELEVANT IMPLANT DATA REVIEWED: Not Applicable PATIENT PRESENTS WITH AN IMPLANTABLE OR ATTACHED SEWING MACHINE ATTACHMENT TESTER: No RADIOLOGY DEPARTMENT: General X-ray: Exam(s) Completed: Chest X-Ray PERIPHERAL IV DATA: Not applicable SIGNED BY: RT Wilber(Nisa) August 01, 2024 4:49 PM [facility] 08-01-2024 Telephone encounter Note PATIENT NOTIFIED OF SAME. [facility] 08-01-2024 Note HNO ID: [id number] Author: EV FINN APRN.[employer] TECHNICIAN Service: ? Author Type: Nurse Practitioner Type: Progress Notes Filed: 08/01/2024 14:12 Note Text: Patient requested chaperone. Rodriguez is a 64 year old who presents for an annual gynecologic exam, c/o intermittent bleeding. Feels like that is a mass on the left side c/o of pain only on the left side. Postmenopausal: Yes since age 46 HRT use: No. Last Pap: 07/18/2012 normal HPV: 07/11/2012 negative History of abnormal pap: No Last mammogram: 2017 normal, Pt reported 2021 normal. History of abnormal mammogram: No Pt reported Sexually active: Yes Pain with intercourse: No Postcoital bleeding: Yes OB History T2 L2 SAB0 IAB0 Ectopic0 Multiple0 Live Births0 Display Trimmer History LMP: 10/18/2006, Postmenopausal Age at Menarche: Age at First : Age at Menopause: Display Trimmer History Comments: Sexual Activity: Yes; Male; post menopausal Contraception: Other PAST MEDICAL HISTORY Diagnosis Date Bee sting allergy 04/28/2008 Concussion with no loss of consciousness Displacement of intervertebral disc, site unspecified, without myelopathy 11/30/2006 [facility] claim Disturbance of skin sensation Esophageal reflux Headaches migraines Hypercholesteremia Mental disorder anxiety Multiple rib fractures 2012 Fell down stairs to basement-- 5th and 6th rib fractures and left great toe fracture Snoring Sprain of lumbosacral (joint) (ligament) Sprain of neck [facility] claim Sprain of thoracic region [facility] claim Tubular adenoma of colon 07/29/2015 Dr. Caban Variants of migraine, not elsewhere classified, without mention of intractable migraine without mention of status migrainosus PAST SURGICAL HISTORY Procedure Laterality Date CHOLECYSTECTOMY 02/26/2017 Cholecystectomy; [facility] with Dr. Alejo COLONOSCOPY FLX DX W/COLLJ SPEC WHEN PFRMD 07/29/2015 Colonoscopy COLONOSCOPY SCREENING 2019 COLONOSCOPY SCREENING 06/28/2023 repeat in 10 years, Dr. Alejo EGD 05/08/2024 ESOPHAGOGASTRODUODENOSCOPY TRANSORAL DIAGNOSTIC 07/29/2015 EGD ESOPHAGOGASTRODUODENOSCOPY TRANSORAL DIAGNOSTIC 04/05/2017 EGD PAST SURGICAL HISTORY OF bilat feet - reconstruction FAMILY HISTORY Problem Relation Age of Onset Breast Cancer Mother Diabetes Mother Heart Mother Cancer Father liver ca Diabetes Sister SOCIAL HISTORY Social History Tobacco Use Smoking status: Former Current packs/day: 0.00 Types: Cigarettes Quit date: 07/21/2015 Years since quittin.0 Smokeless tobacco: Never Tobacco comments: was smoking less than one half pack; had cut back until able to quit 08/10/2009 Vaping Use Vaping status: Never Used Substance Use Topics Alcohol use: Yes Comment: rarely Drug use: No REVIEW OF SYSTEMS Abdomen: No nausea, vomiting, diarrhea, or constipation. No bloating, early satiety, indigestion, or increased flatulence. Bladder: No dysuria, gross hematuria, urinary frequency, urinary urgency, or incontinence Breast: No breast lumps, nipple d/c, overlying skin changes, redness or skin retraction Allergies and current medication updated:Yes SENSITIVE EXAM: The sensitive examination was discussed with the Patient or Patient's Authorized Transportation Clerk. As applicable, any other physician, advance practice provider, medical student, or other health professional student that will be observing or involved in the sensitive examination for educational or training purposes was discussed with the Patient or Authorized Transportation Clerk. The Patient or Authorized Transportation Clerk has agreed to proceed with the sensitive examination. (Sensitive examination includes inspection and/or palpation of the breasts, pelvis, prostate and anorectal regions). EXAM: LMP 10/18/2006 GENERAL: pleasant, female in no apparent distress HEENT: Normocephalic, atraumatic, mucus membranes moist, and no lesions DERMATOLOGY: Normal, without lesions, non-icteric, and non-hirsute BREAST: soft, non-tender, symmetric, no dominant mass, normal nipple-areolar complex, no lymphadenopathy, and no nipple discharge CHEST: Normal inspiratory effort ABDOMEN: soft, no masses, and Moderate tenderness in LUQ, LLQ, periumbilical area PELVIC: external genitalia normal, normal Bartholin's glands, urethra, Stonewall's glands, no vulvar lesions, no cervical lesions, good vaginal support, physiologic discharge present, normal appearing perineal body and perianal region, vaginal lesion right vaginal wall polyp just inside opening BIMANUAL: uterus normal size, shape and consistency, no adnexal masses, and Mild tenderness RECTOVAGINAL: deferred. NEURO: alert and oriented x3,exam grossly non-focal EXTREMITIES: normal ASSESSMENT/PLAN: 1. Encounter for gynecological examination (general) (routine) without abnormal findings - ICD9: V72.31, ICD10: Z01.419 (primary diagnosis) - Completed pap test and breast exam - Encourage (more content not included)... [facility] 08-01-2024 History of Present illness Narrative Patient requested chaperone. Rodriguez is a 64 year old who presents for an annual gynecologic exam, c/o intermittent bleeding. Feels like that is a mass on the left side c/o of pain only on the left side. Postmenopausal: Yes since age 46 HRT use: No. Last Pap: 07/18/2012 normal HPV: 07/11/2012 negative History of abnormal pap: No Last mammogram: 2018 normal, Pt reported 2021 normal. History of abnormal mammogram: No Pt reported Sexually active: Yes Pain with intercourse: No Postcoital bleeding: Yes OB History T2 L2 SAB0 IAB0 Ectopic0 Multiple0 Live Births0 Display Trimmer History LMP: 10/18/2006, Postmenopausal Age at Menarche: Age at First : Age at Menopause: Display Trimmer History Comments: Sexual Activity: Yes; Male; post menopausal Contraception: Other PAST MEDICAL HISTORY Diagnosis Date Bee sting allergy 04/28/2008 Concussion with no loss of consciousness Displacement of intervertebral disc, site unspecified, without myelopathy 11/30/2006 [facility] claim Disturbance of skin sensation Esophageal reflux Headaches migraines Hypercholesteremia Mental disorder anxiety Multiple rib fractures 2012 Fell down stairs to basement-- 5th and 6th rib fractures and left great toe fracture Snoring Sprain of lumbosacral (joint) (ligament) Sprain of neck [facility] claim Sprain of thoracic region [facility] claim Tubular adenoma of colon 07/29/2015 Dr. Caban Variants of migraine, not elsewhere classified, without mention of intractable migraine without mention of status migrainosus PAST SURGICAL HISTORY Procedure Laterality Date CHOLECYSTECTOMY 02/26/2017 Cholecystectomy; [facility] with Dr. Alejo COLONOSCOPY FLX DX W/COLLJ SPEC WHEN PFRMD 07/29/2015 Colonoscopy COLONOSCOPY SCREENING 2018 COLONOSCOPY SCREENING 06/28/2023 repeat in 10 years, Dr. Alejo EGD 05/08/2024 ESOPHAGOGASTRODUODENOSCOPY TRANSORAL DIAGNOSTIC 07/29/2015 EGD ESOPHAGOGASTRODUODENOSCOPY TRANSORAL DIAGNOSTIC 04/05/2017 EGD PAST SURGICAL HISTORY OF bilat feet - reconstruction FAMILY HISTORY Problem Relation Age of Onset Breast Cancer Mother Diabetes Mother Heart Mother Cancer Father liver ca Diabetes Sister SOCIAL HISTORY Social History Tobacco Use Smoking status: Former Current packs/day: 0.00 Types: Cigarettes Quit date: 07/21/2015 Years since quittin.0 Smokeless tobacco: Never Tobacco comments: was smoking less than one half pack; had cut back until able to quit 08/10/2009 Vaping Use Vaping status: Never Used Substance Use Topics Alcohol use: Yes Comment: rarely Drug use: No REVIEW OF SYSTEMS Abdomen: No nausea, vomiting, diarrhea, or constipation. No bloating, early satiety, indigestion, or increased flatulence. Bladder: No dysuria, gross hematuria, urinary frequency, urinary urgency, or incontinence Breast: No breast lumps, nipple d/c, overlying skin changes, redness or skin retraction Allergies and current medication updated:Yes SENSITIVE EXAM: The sensitive examination was discussed with the Patient or Patient's Authorized Transportation Clerk. As applicable, any other physician, advance practice provider, medical student, or other health professional student that will be observing or involved in the sensitive examination for educational or training purposes was discussed with the Patient or Authorized Transportation Clerk. The Patient or Authorized Transportation Clerk has agreed to proceed with the sensitive examination. (Sensitive examination includes inspection and/or palpation of the breasts, pelvis, prostate and anorectal regions). EXAM: LMP 10/18/2006 GENERAL: pleasant, female in no apparent distress HEENT: Normocephalic, atraumatic, mucus membranes moist, and no lesions DERMATOLOGY: Normal, without lesions, non-icteric, and non-hirsute BREAST: soft, non-tender, symmetric, no dominant mass, normal nipple-areolar complex, no lymphadenopathy, and no nipple discharge CHEST: Normal inspiratory effort ABDOMEN: soft, no masses, and Moderate tenderness in LUQ, LLQ, periumbilical area PELVIC: external genitalia normal, normal Bartholin's glands, urethra, Stonewall's glands, no vulvar lesions, no cervical lesions, good vaginal support, physiologic discharge present, normal appearing perineal body and perianal region, vaginal lesion right vaginal wall polyp just inside opening BIMANUAL: uterus normal size, shape and consistency, no adnexal masses, and Mild tenderness RECTOVAGINAL: deferred. NEURO: alert and oriented x3,exam grossly non-focal EXTREMITIES: normal ASSESSMENT/PLAN: 1. Encounter for gynecological examination (general) (routine) without abnormal findings - ICD9: V72.31, ICD10: Z01.419 (primary diagnosis) - Completed pap test and breast exam - Encouraged monthly BSE - Follow up for annual exam in one year. - JENNY SCREENING W [place] - PAP TEST 2. Encounter for screening for human papillomavirus (HPV) - ICD9: V73.81, ICD10: Z11.51 - PAP TEST 3. Pap smear for cervical cancer screening - ICD9: V76.2, ICD10: Z12.4 - PAP TEST 4. Encounter for screening mammogram for breast cancer - ICD9: V76.12, ICD10: Z12.31 - JENNY SCREENING W [place] 5. Pelvic pain in female - ICD9: 625.9, ICD10: R10.2 - PELVIC US WHI Will notify patient of test results. Ev Finn APRN.CNP Medical Decision Making: Problems: Moderate: New problem with uncertain prognosis Data: Unique test(s) ordered: 1 Risk: Low: Low risk from testing/treatment Medical Decision Making Level: 3 - Low documented in this encounter [facility] 08-01-2024 Telephone encounter Note Okay for a chest xray, order placed, depending on results she might need to follow back up for a recheck in the office. [facility] 08-01-2024 Telephone encounter Note Pt reports she is still sick after trying 3 AB's. Was able to take the 3rd AB, bactrim, without vomiting, but was nauseous the whole time. Reports she has been sick since the middle of June. Still has a cough so bad, it's hard to stop coughing. Reports the cough is productive. Reports nose is runny, has hoarse voice. Reports she is SOB at rest. Reports she is so tired, she has to take 1/2 of a ginsing gummy bear to stay up- if she takes more than a half her heart races. Reports she also takes a senior centrum MVI, and a zinc once daily. Is eating activa yogart. Taking a sinus pill and flonase daily. Reports she has 6 dogs. Did not do a covid test. Wonders if she has walking pneumonia? Should CXR be done? Please advise patient: [phone] [facility] 07-18-2024 Telephone encounter Note PATIENT NOTIFIED OF SAME. States she did have 1 episode of vomiting today. [facility] 07-18-2024 Miscellaneous Notes PATIENT NOTIFIED OF SAME. States she did have 1 episode of vomiting today. Would recommend she stop the doxycycline and try Bactrim instead, script sent. If symptoms continue then needs to come in for recheck. Patient calling, states that the new antibiotic is making her vomit now. Asking for a different antibiotic to be prescribed. States she does not feel like she can come in for an appointment with how she is feeling. Please advise. documented in this encounter [facility] 07-18-2024 Telephone encounter Note Would recommend she stop the doxycycline and try Bactrim instead, script sent. If symptoms continue then needs to come in for recheck. [facility] 07-18-2024 Telephone encounter Note Patient calling, states that the new antibiotic is making her vomit now. Asking for a different antibiotic to be prescribed. States she does not feel like she can come in for an appointment with how she is feeling. Please advise. [facility] 07-16-2024 Telephone encounter Note Spoke with patient. Given message from provider's office. Patient verbalizes understanding. Jared Nj RN [facility] 07-16-2024 Miscellaneous Notes Spoke with patient. Given message from provider's office. Patient verbalizes understanding. Jared Nj RN Okay to switch to doxycycline, script sent. Patient calling she has 2 days of Augmentin rx left. Her sinus issues are not any better, her eyes are watering and nose is running constantly, pouring clear secretions, she has headache and nauseated. Patient said she feels like warmed over. Patient asking if she needs to switch to another antibiotic? Patient uses [facility] for her pharmacy. Please advise documented in this encounter [facility] 07-16-2024 Telephone encounter Note Okay to switch to doxycycline, script sent. [facility] 07-16-2024 Telephone encounter Note Patient calling she has 2 days of Augmentin rx left. Her sinus issues are not any better, her eyes are watering and nose is running constantly, pouring clear secretions, she has headache and nauseated. Patient said she feels like warmed over. Patient asking if she needs to switch to another antibiotic? Patient uses [facility] for her pharmacy. Please advise [facility] 07-08-2024 Telephone encounter Note Prescription Refill Information The patient has been identified by name and date of : Yes Caregiver verified no other encounters exist for this prescription request: Yes Caregiver confirmed with patient/requestor that no other refills are due, in the near future, with this provider at this time: Yes The last office visit in the department: 07/08/24 Does the patient have a future office visit with this provider/department: Yes 09/15/24 Requested Prescriptions Pending Prescriptions Disp Refills naratriptan (AMERGE) 2.5 mg tablet 18 tablet 3 Sig: Take 1 tablet (2.5 mg) by mouth as needed. 2.5 mg at onset of headache, may repeat in 4 hours if needed Charu Lopez LPN July 08, 2024 12:27 PM [facility] 07-08-2024 Miscellaneous Notes Prescription Refill Information The patient has been identified by name and date of : Yes Caregiver verified no other encounters exist for this prescription request: Yes Caregiver confirmed with patient/requestor that no other refills are due, in the near future, with this provider at this time: Yes The last office visit in the department: 07/08/24 Does the patient have a future office visit with this provider/department: Yes 09/15/24 Requested Prescriptions Pending Prescriptions Disp Refills naratriptan (AMERGE) 2.5 mg tablet 18 tablet 3 Sig: Take 1 tablet (2.5 mg) by mouth as needed. 2.5 mg at onset of headache, may repeat in 4 hours if needed Charu Lopez LPN July 08, 2024 12:27 PM documented in this encounter [facility] 07-08-2024 Note Addended by: CHEYENNE GILBERT on: 07/08/2024 12:26 PM Modules accepted: Orders [facility] 07-08-2024 Miscellaneous Notes Addended by: CHEYENNE GILBERT on: 07/08/2024 12:26 PM Modules accepted: Orders documented in this encounter [facility] 07-08-2024 History of Present illness Narrative SUBJECTIVE Saulo Geiger is a 63 year old female here today for acute problems. Chief Complaint Patient presents with: Fatigue: started about 1 week nasal drainage is very thin with throat congestions sneezing watery eyes HPI Saulo Geiger is a 63 year old female. She is an established patient of Akin Elliott MD. Here today for acute concern. Onset over a week ago. Tried OTCs and taking zinc. Not helping. Very tired, no energy. Not improving. Symptoms of cough, sneezing, congestion, runny nose, sore throat and fatigue. Her medications were reviewed today and her list is now up to date. Medications Current Outpatient Medications Medication Sig promethazine (PHENERGAN) 25 mg tablet Take 0.5-1 tablets by mouth every 6 hours as needed. diclofenac, EC, (VOLTAREN) 50 mg EC tablet Take 1 tablet by mouth two times a day as needed. fluticasone (FLONASE) 50 mcg/actuation nasal spray Use 2 Sprays in each nostril once daily. Rinse mouth after use. cholecalciferol (VITAMIN D3) 1,000 unit tab tablet Take 1 tablet by mouth once daily. loperamide (ANTI-DIARRHEAL) 2 mg cap(s) Take 1 capsule by mouth four times a day as needed for diarrhea. dilTIAZem CD (CARTIA XT) 180 mg 24 hr capsule Take 1 capsule by mouth once daily. naratriptan (AMERGE) 2.5 mg tablet Take 1 tablet (2.5 mg) by mouth as needed. 2.5 mg at onset of headache, may repeat in 4 hours if needed topiramate (TOPAMAX) 100 mg tablet TAKE 2 TABLETS TWICE A DAY IN THE MORNING AND AT BEDTIME pantoprazole DR (PROTONIX) 40 mg tablet Take 1 tablet by mouth two times a day before meals at 6 am and 4 pm. Take on empty stomach, 1/2 hr before meal. cyclobenzaprine (FLEXERIL) 10 mg tablet Take 1 tablet by mouth at bedtime as needed for muscle spasm or pain. ibuprofen (MOTRIN) 800 mg tablet Take 1 tablet by mouth every 8 hours as needed for pain. Take with food. amoxicillin-clavulanate potassium (AUGMENTIN) 875-125 mg per tablet Take 1 tablet by mouth two times a day for 10 days. cholestyramine-aspartame (CHOLESTYRAMINE LIGHT) 4 gram powder Take 4 g by mouth three times a day with meals. (Patient not taking: Reported on 05/19/2024) No current facility-administered medications for this visit. 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 - 05/06/2018 Migraine Variant Hypercholesteremia Cervicalgia - 08/02/2012 Chronic Back Pain - 08/02/2012 Bruxism (Teeth Grinding) - 08/16/2011 Bee sting allergy - 04/28/2008 Displacement of Intervertebral Disc of Thoracolumbar Region - 11/30/2006 Esophageal Reflux Social History Tobacco Use Smoking status: Former Current packs/day: 0.00 Types: Cigarettes Quit date: 07/21/2015 Years since quittin.9 Smokeless tobacco: Never Tobacco comments: was smoking less than one half pack; had cut back until able to quit 08/10/2009 Vaping Use Vaping status: Never Used Substance Use Topics Alcohol use: Yes Comment: rarely Drug use: No Review of Systems Constitutional: Positive for fatigue. HENT: Positive for congestion, postnasal drip, rhinorrhea, sinus pressure and sore throat. Respiratory: Positive for cough. Negative for chest tightness, shortness of breath and wheezing. Cardiovascular: Negative. OBJECTIVE BP 147/85 Pulse 86 Temp (Src) 98.3 (Tympanic) Wt 138 lb 3.7 oz (62.7kg) SpO2 95% LMP 10/18/2006 Physical Exam Vitals and nursing note reviewed. Constitutional: General: She is awake. She is not in acute distress. Appearance: Normal appearance. She is well-developed and well-groomed. She is ill-appearing. She is not toxic-appearing or diaphoretic. HENT: Head: Normocephalic. Right Ear: External ear normal. Left Ear: External ear normal. Nose: Mucosal edema and rhinorrhea present. Rhinorrhea is purulent. Eyes: General: Vision grossly intact. Conjunctiva/sclera: Conjunctivae normal. Pupils: Pupils are equal, round, and reactive to light. Neck: Vascular: No JVD. Trachea: Trachea normal. Cardiovascular: Rate and Rhythm: Normal rate and regular rhythm. Pulses: Normal pulses. Heart sounds: Normal heart sounds. No murmur heard. Pulmonary: Effort: Pulmonary effort is normal. No accessory muscle usage, prolonged expiration or respiratory distress. Breath sounds: Normal breath sounds. Musculoskeletal: Cervical back: Neck supple. Skin: General: Skin is warm and dry. Capillary Refill: Capillary refill takes less than 2 seconds. Neurological: General: No focal deficit present. Mental Status: She is alert and oriented to person, place, and time. Mental status is at baseline. Psychiatric: Attention and Perception: Attention and perception normal. Mood and Affect: Mood and affect normal. Speech: Speech normal. Behavior: Behavior normal. Behavior is cooperative. Thought Content: Thought content normal. Cognition and Memory: Cognition and memory normal. Judgment: Judgment normal. ASSESSMENT/PLAN: 1. Acute non-recurrent pansinusitis - ICD9: 461.8, ICD10: J01.40 - Will begin treatment with as per antibiotic as written, see orders - The patient should also be given OTC cough and cold meds as needed, warm salt water gargles, throat lozenges and/or OTC throat spray as needed, and nasal saline gtts and suction prn for the first 5-7 days of treatment. - Supportive care with plenty of fluids, rest, and analgesia prn. - Follow up in 3-5 days if symptoms persist or worsen. - AMOXICILLIN 875 MG-POTASSIUM CLAVULANATE 125 MG TABLET Portions of this note have been entered by ancillary staff. I have reviewed and when necessary edited, so that they are an adequate record of my encounter with this patient Please note that parts of this document were created using voice recognition software and therefore may contain grammatical errors. Patient verbalizes understanding of instructions from today's visit and in agreement with treatment plan. Questions answered. Agrees to call the office if questions, concerns of issues with acute symptoms not improving or if they worsen. See diagnoses and orders for additional plan(s). Allergies and medications were reviewed, list was updated, and refills given if needed. Past medical, surgical, social, and family history reviewed and updated as appropriate. Encouraged proper diet & exercise as well as compliance with taking medications. Age-appropriate health preventative measures were discussed. No follow-ups on file. Cheyenne Gilbert APRN-BONY documented in this encounter [facility] 05-27-2024 Telephone encounter Note Images from the original note were not included. Amanda Powers APRN.CNP [facility] Can you please fax GI consult to Dr. Rucker's office. Amanda Givens APRN.BONY Medical records faxed, confirmation sheet received. Judy Wang RN [facility] 05-27-2024 Miscellaneous Notes Images from the original note were not included. Amanda Powers APRN.CNP [facility] Can you please fax GI consult to Dr. Rucker's office. Thanks, Amanda Powers APRN.BONY Medical records faxed, confirmation sheet received. Judy Wang RN documented in this encounter [facility] 05-23-2024 Instructions Akin Elliott MD - 05/23/2024 12:49 PM EDT -Flu shot administered today; if you experience severe reactions such as swelling of the face or throat, difficulty breathing, fast heartbeat, dizziness, or weakness, call 911 immediately. - Refills for Voltaren, Phenergan, Flonase, and migraine medication have been sent to your pharmacy. - Discontinue use of Advil (ibuprofen) as you are already taking prescription diclofenac. - Continue taking pantoprazole (Protonix) twice daily to help manage acid reflux. - Avoid cold liquids and large meals to prevent acid reflux. - Ensure adequate salt intake in your diet. - Complete the blood work ordered today, including a CBC, thyroid labs, thyroid peroxidase level, and vitamin D level. - Your next appointment is scheduled for September 15 at 1 PM. documented in this encounter [facility] 05-23-2024 History of Present illness Narrative This note was created using [employer]. Subjective Saulo Geiger is a 63 year old female. Patient presents with: F/U 3 Month SUBJECTIVE: Saulo Geiger is a 63 year old year old lady here today for 3 month follow up appointment for review of medical conditions. Patient is a 63-year-old female presenting for a 3-month follow-up visit. She reports experiencing significant anxiety, particularly in crowded places, which has led her to avoid certain activities, such as attending fairs. She describes a recent incident where she opted to go to a less crowded restaurant instead of a fair due to her anxiety. Patient has a history of migraines and is currently taking medication for them. She also reports experiencing back pain, for which she takes diclofenac. She mentions having a low vitamin D level in the past and is currently taking vitamin D supplements. She also takes zinc supplements daily. Patient reports a recent experience of a panic attack after receiving a flu shot at a pharmacy, which led her to seek emergency care. She describes feeling very sick after the shot and had a negative experience with the emergency room staff. Patient has a history of dysphagia and reports having two lumps in her throat and a change in her voice. She also experiences coughing when talking and choking when eating. She has had a swallow study done and is scheduled to see a admissions gate attendant for further evaluation. She is currently taking Protonix twice a day. Patient reports a recent MRI of her brain and a CT scan of her abdomen and pelvis. She also mentions having an upper GI series done. She reports feeling very sick during the swallow study and describes a negative experience with the medical staff. Patient is also taking Flonase for allergies and requests a refill. She reports using ibuprofen for headaches and diclofenac for back pain. She also requests refills for Phenergan for nausea. PAST MEDICAL HISTORY Diagnosis Date Bee sting allergy 04/28/2008 Concussion with no loss of consciousness Displacement of intervertebral disc, site unspecified, without myelopathy 11/30/2006 [facility] claim Disturbance of skin sensation Esophageal reflux Headaches migraines Hypercholesteremia Mental disorder anxiety Multiple rib fractures 2012 Fell down stairs to basement-- 5th and 6th rib fractures and left great toe fracture Snoring Sprain of lumbosacral (joint) (ligament) Sprain of neck [facility] claim Sprain of thoracic region [facility] claim Tubular adenoma of colon 07/29/2015 Dr. Caban Variants of migraine, not elsewhere classified, without mention of intractable migraine without mention of status migrainosus Current Outpatient Medications Medication Sig cholecalciferol (VITAMIN D3) 1,000 unit tab tablet Take 1 tablet by mouth once daily. loperamide (ANTI-DIARRHEAL) 2 mg cap(s) Take 1 capsule by mouth four times a day as needed for diarrhea. dilTIAZem CD (CARTIA XT) 180 mg 24 hr capsule Take 1 capsule by mouth once daily. naratriptan (AMERGE) 2.5 mg tablet Take 1 tablet (2.5 mg) by mouth as needed. 2.5 mg at onset of headache, may repeat in 4 hours if needed topiramate (TOPAMAX) 100 mg tablet TAKE 2 TABLETS TWICE A DAY IN THE MORNING AND AT BEDTIME pantoprazole DR (PROTONIX) 40 mg tablet Take 1 tablet by mouth two times a day before meals at 6 am and 4 pm. Take on empty stomach, 1/2 hr before meal. cyclobenzaprine (FLEXERIL) 10 mg tablet Take 1 tablet by mouth at bedtime as needed for muscle spasm or pain. fluticasone (FLONASE) 50 mcg/actuation nasal spray Use 2 Sprays in each nostril once daily. Rinse mouth after use. ibuprofen (MOTRIN) 800 mg tablet Take 1 tablet by mouth every 8 hours as needed for pain. Take with food. promethazine (PHENERGAN) 25 mg tablet Take 0.5-1 tablets by mouth every 6 hours as needed. cholestyramine-aspartame (CHOLESTYRAMINE LIGHT) 4 gram powder Take 4 g by mouth three times a day with meals. (Patient not taking: Reported on 05/19/2024) No current facility-administered medications for this visit. Review of Systems Objective BP 148/92 Pulse 83 Temp 36.9 C (98.5 F) Resp 16 Wt 62.1 kg (136 lb 14.5 oz) LMP 10/18/2006 SpO2 97% BMI 22.10 kg/m Last 5 Encounter Wt Readings: Date: Wt: 05/23/2024 62.1 kg (136 lb 14.5 oz) 05/08/2024 61.8 kg (136 lb 3.9 oz) 04/23/2024 61.8 kg (136 lb 3.2 oz) 03/19/2024 59.9 kg (132 lb) 03/04/2024 59.4 kg (131 lb) No waist measurement recorded Estimated body mass index is 22.1 kg/m as calculated from the following: Height as of 04/23/24: 167.6 cm (5' 6). Weight as of this encounter: 62.1 kg (136 lb 14.5 oz). Last 5 Encounter BP Readings: Date: BP: 05/23/2024 148/92 05/08/2024 131/66 04/23/2024 118/60 03/19/2024 124/72 03/04/2024 124/83 Physical Exam Constitutional: Appearance: Normal appearance. HENT: Head: Normocephalic. Eyes: Conjunctiva/sclera: Conjunctivae normal. Cardiovascular: Rate and Rhythm: Normal rate and regular rhythm. Heart sounds: Normal heart sounds. Pulmonary: Effort: Pulmonary effort is normal. Breath sounds: Normal breath sounds. Musculoskeletal: Right lower leg: No edema. Left lower leg: No edema. Skin: General: Skin is warm and dry. Neurological: General: No focal deficit present. Mental Status: She is alert and oriented to person, place, and time. Psychiatric: Mood and Affect: Mood normal. Behavior: Behavior normal. Thought Content: Thought content normal. Judgment: Judgment normal. Assessment and Plan # Pharyngeal dysphagia (R13.13) - Recent swallow study indicated dysphagia and gastritis. - Referred to GI specialist for further evaluation and management. - Continue Protonix (pantoprazole) BID. - Advised to avoid cold liquids, consume smaller meals, and ensure adequate salt intake to minimize reflux symptoms. # DDD (degenerative disc disease), lumbar (M51.36) # Other chronic back pain (M54.89) - Managed with diclofenac (Voltaren) for anti-inflammatory effects. - Refilled diclofenac prescription. - Discussed ibuprofen--she knows to avoid concurrent use of multiple NSAIDs. # Nausea (R11.0) - Refilled Phenergan prescription for symptomatic relief. # Vitamin D deficiency (E55.9) - Previous lab in February showed low vitamin D levels. - Patient currently taking vitamin D supplements. - Ordered repeat vitamin D level to assess adequacy of current supplementation. # Nasal drainage (J34.89) - Managed with Flonase nasal spray. - Refilled Flonase prescription. # Migraine variant (G43.809) - Recent brain MRI showed no abnormalities. - Refilled migraine medication to ensure continuity of care until next appointment. # Encounter for immunization (Z23) - Administered influenza vaccine. - Educated on potential serious reactions: facial or throat swelling, difficulty breathing, tachycardia, dizziness, or weakness; advised to seek emergency care if these occur. Had labs ordered by Cheyenne for follow up on thyroid,etc. Will do on way out, I spent a total of 33 minutes on the date of the service which included [id number] patient care, completing clinical documentation, obtaining and/or reviewing separately obtained history, performing a medically appropriate examination, counseling and educating the patient/family/caregiver, ordering medications, tests, or procedures, independently interpreting results (not separately reported), and communicating results to the patient/family/caregiver. Akin Elliott MD documented in this encounter [facility] 05-19-2024 Instructions Amanda Powers APRN.[employer] TECHNICIAN - 05/19/2024 2:[address] Rucker's office ([facility] located at [facility]) should be calling you to schedule an appointment to further work up your swallowing issues. GASTRITIS/GERD I discussed with you the findings of your upper endoscopy. Your upper endoscopy demonstrated signs of peptic ulcer disease or irritation. This can be seen as a range of issues from actual ulcers in the stomach or duodenum (first part of the small bowel) or irritation ranging from redness to more significant irritation with erosions of the stomach or duodenum. These conditions are usually caused from a combination of too much acid production or too little protective mucus production in the stomach. Factors that increase acid production include smoking and stress. If you smoke, stopping smoking will often cure these issues without needing other medications. Factors that decrease the stomach's production of protective mucus include alcohol consumption, smoking, aspirin and other anti-inflammatory use (ibuprofen, aleve, naproxen). Okay to take extra strength tylenol or Excedrin. Over the counter medications including antiacids and acid reducing medications including H2 blockers (Zantac and the like) and proton pump inhibitors (prilosec, prevacid and the like) neutralize or prevent acid production. Avoiding smoking, alcohol and antiinflammatory medications are important in the successful treatment of peptic diseases. Your esophagus can look normal at upper endoscopy and you still have GERD. Multiple factors effect GERD symptoms - acid production, obesity, smoking, food consumption, and time of meals Other factors that contribute to GERD and esophagitis are being overweight, eating large meals before laying down and certain foods. Weight loss will help improve many GERD complaints. Remaining upright after eating large meals and having a small supper will also help symptoms. Avoiding food that contribute to reflux - chocolate, caffeine, cheddar cheese may also help. New or worsening symptoms such are epigastric pain, burning, difficulty swallowing or food sticking should be relayed to your physician. Feeling full early after eating, or black, tarry, foul smelling stools are also worrisome. If you have any difficulties or concerns, you should contact our office immediately. documented in this encounter [facility] 05-19-2024 History of Present illness Narrative FOLLOW UP VISIT - ENDOSCOPY Saulo Geiger 1960 [id number] REFERRING PHYSICIAN: No referring provider defined for this encounter. Saulo Geiger is a patient I am following for dysphagia with solids and liquids, horse voice and lumps in her throat. performed upper endoscopy on 05/08/24. The patient was found to have Impression: - Z-line regular, 40 cm from the incisors. Biopsied. - Gastritis. Biopsied. - Normal examined duodenum. Biopsied. Pathology demonstrated: FINAL DIAGNOSIS A. Duodenum, biopsy: -Duodenal mucosa with no diagnostic abnormality. B. Stomach, antrum, biopsy: -Reactive gastropathy, gastric antral mucosa. -No morphologic evidence of Helicobacter pylori. C. Esophagus, distal, biopsy: -Squamous epithelium with no diagnostic abnormality. D. Esophagus, mid, biopsy: -Squamous epithelium with no diagnostic abnormality. The patient notes continued issues with swallowing. Unsure if she is taking Protonix or Omeprazole. Saulo had a barium swallow study done the day before EGD which showed dysmotility with with delay between the oral cavity and oropharynx. VITALS: There were no vitals taken for this visit. General: patient is alert, cooperative, pleasant and in no acute distress On examination, the abdomen is benign. Assessment ASSESSMENT/PLAN: 1. Oropharyngeal dysphagia - ICD9: 787.22, ICD10: R13.12 - Offered to place consult for swallowing clinic within [facility]- pt declined - Consult to [facility] placed- pt doesn't want to leave [facility]. The operative findings and pathology report were reviewed with the patient, and the patient has had the opportunity to ask questions and have questions answered. If the patient notes any problems or changes in bowel function, the patient should contact me immediately. Otherwise I recommend follow up EGD as needed. HM updated and recall letter generated. Discussed treatment plan and patient voices understanding. Patient's questions answered appropriately. Medications and potential side effects were discussed and patient voices understanding. Return to the office as scheduled or as needed for worsening/no improvement. Amanda Powers APRN.BONY documented in this encounter [facility] 05-09-2024 Telephone encounter Note Spoke with patient. Reviewed Amanda's message. She voiced understanding. Judy Wang RN May 09, 2024 10:07 AM [facility] 05-09-2024 Miscellaneous Notes Spoke with patient. Reviewed Amanda's message. She voiced understanding. Judy Wang RN May 09, 2024 10:07 AM Can you please call Saulo and let her know that her CT of her abd was normal and there is no evidence of a cause for her LLQ pain. Let her know she should schedule an appoint with [facility] for additional testing. She already has an order placed. Thanks, Amanda Powers, ENGINE MANAGER.[employer] TECHNICIAN documented in this encounter [facility] 05-09-2024 History of Present illness Narrative Radiology Service Progress Note PATIENT NAME: Saulo Geiger DATE OF SERVICE: May 09, 2024 TIME: 9:32 AM PATIENT IDENTITY VERIFICATION COMPLETED USING TWO (2) IDENTIFIERS: Name and Date of confirmed by patient verbally. FALL SCREENING: Has the patient had 2 falls in the last year or 1 fall with injury or currently using an Ambulatory Assistive Device (Walker, Cane, Wheelchair, Crutches, etc.)? No PATIENT GENDER DATA: Female. status: : No status: NO. PATIENT RELEVANT IMPLANT DATA REVIEWED: Not Applicable PATIENT PRESENTS WITH AN IMPLANTABLE OR ATTACHED SEWING MACHINE ATTACHMENT TESTER: No RADIOLOGY DEPARTMENT: General X-ray: Exam(s) Completed: GI/ Procedure(s): Esophogram with water soluable contrast: WITH BARIUM, NOT WATER SOLUABLE CONTRAST PERIPHERAL IV DATA: Not applicable SIGNED BY: RT Lizbeth(R) May 09, 2024 9:32 AM documented in this encounter [facility] 05-08-2024 Note Formatting of this n ote might be different from the original. The patient received a copy of EGD discharge instructions that contain information for how to contact the physician who performed the procedure and when to seek medical care.Chioma Topete RN [facility] 05-08-2024 Miscellaneous Notes The patient received a copy of EGD discharge instructions that contain information for how to contact the physician who performed the procedure and when to seek medical care.Chioma Topete RN documented in this encounter [facility] 05-08-2024 History and physical note HISTORY AND PHYSICAL Saulo Geiger : 1960 REFERRING PHYSICIAN: Cheyenne Gilbert [address] [id number] CHIEF COMPLAINT: Patient presents with: Consult: EGD consultation. HPI: Saulo is a 63 year old female referred for endoscopy. Saulo notes dysphagia with solids and liquids, horse voice and increased throat clearing. She was seen by her PCP for lumps in her throat, that she can feel on the outside- had thyroid US which was normal C/O nausea Takes protonix BID with no relief C/O LLQ pain that is present only when laying supine. This has been ongoing for the last 3 months and resolves on its own. The patient also refers that during recent intercourse with the same pain was aggravated and there was scant bleeding afterwards. Refers she had a tubal ligation many years ago Saulo denies constipation and refers that since her cholecystectomy she has had issue with diarrhea Patient denies any change in bowel habits, weight changes, blood in stools, black tarry stools or Denies family history of colon issues. Saulo has undergone prior endoscopy. Last EGD was 03/2017 at [facility] with Dr. Alejo, sedation received Midazolam 5 mg IV, Fentanyl 50 micrograms IV, Impression: - Z-line irregular, 39 cm from the incisors. Biopsied. - Erythematous mucosa in the antrum. Biopsied. - Normal duodenal bulb and second portion of the duodenum. Biopsied. Pathology: CONVERTED FINAL DIAGNOSIS 1. Duodenum, second portion, biopsy [...] for intestinal metaplasia and dysplasia. SS/rw 04/06/2017 Last colonoscopy was with Dr. Alejo in 2022 at [facility] which was normal and not due for 10 years. CURRENT MEDICATIONS Current Outpatient Medications Medication Sig cholecalciferol (VITAMIN D3) 1,000 unit tab tablet Take 1 tablet by mouth once daily. loperamide (ANTI-DIARRHEAL) 2 mg cap(s) Take 1 capsule by mouth four times a day as needed for diarrhea. dilTIAZem CD (CARTIA XT) 180 mg 24 hr capsule Take 1 capsule by mouth once daily. naratriptan (AMERGE) 2.5 mg tablet Take 1 tablet (2.5 mg) by mouth as needed. 2.5 mg at onset of headache, may repeat in 4 hours if needed topiramate (TOPAMAX) 100 mg tablet TAKE 2 TABLETS TWICE A DAY IN THE MORNING AND AT BEDTIME pantoprazole DR (PROTONIX) 40 mg tablet Take 1 tablet by mouth two times a day before meals at 6 am and 4 pm. Take on empty stomach, 1/2 hr before meal. cyclobenzaprine (FLEXERIL) 10 mg tablet Take 1 tablet by mouth at bedtime as needed for muscle spasm or pain. cholestyramine-aspartame (CHOLESTYRAMINE LIGHT) 4 gram powder Take 4 g by mouth three times a day with meals. fluticasone (FLONASE) 50 mcg/actuation nasal spray Use 2 Sprays in each nostril once daily. Rinse mouth after use. ibuprofen (MOTRIN) 800 mg tablet Take 1 tablet by mouth every 8 hours as needed for pain. Take with food. promethazine (PHENERGAN) 25 mg tablet Take 0.5-1 tablets by mouth every 6 hours as needed. predniSONE (DELTASONE) 5 mg tablet Take two tablets for one week then one tablet for one week. For back pain No current facility-administered medications for this visit. ALLERGIES: Bee Venom Protein (Honey Bee), Morphine, Relafen [Nabumetone], Venom-Honey Bee, and Zolpidem PAST MEDICAL HISTORY PAST MEDICAL HISTORY 04/28/2008: Bee sting allergy No date: Concussion with no loss of consciousness 11/30/2006: Displacement of intervertebral disc, site unspecified, without myelopathy Comment: C claim No date: Disturbance of skin sensation No date: Esophageal reflux No date: Headaches Comment: migraines No date: Hypercholesteremia No date: Mental disorder Comment: anxiety 2013: Multiple rib fractures Comment: Fell down stairs to basement-- 5th and 6th rib fractures and left great toe fracture No date: Snoring No date: Sprain of lumbosacral (joint) (ligament) No date: Sprain of neck Comment: C claim No date: Sprain of thoracic region Comment: C claim 07/29/2015: Tubular adenoma of colon Comment: Dr. Caban No date: Variants of migraine, not elsewhere classified, without mention of intractable migraine without mention of status migrainosus PAST SURGICAL HISTORY PAST SURGICAL HISTORY 02/26/2017: CHOLECYSTECTOMY Comment: Cholecystectomy; [facility] with Dr. Alejo 07/29/2015: COLONOSCOPY FLX DX W/COLLJ SPEC WHEN PFRMD Comment: Colonoscopy 2019: COLONOSCOPY SCREENING 06/28/2023: COLONOSCOPY SCREENING Comment: repeat in 10 years, Dr. Alejo 07/29/2015: ESOPHAGOGASTRODUODENOSCOPY TRANSORAL DIAGNOSTIC Comment: EGD 04/05/2017: ESOPHAGOGASTRODUODENOSCOPY TRANSORAL DIAGNOSTIC Comment: EGD No date: PAST SURGICAL HISTORY OF Comment: bilat feet - reconstruction FAMILY HISTORY FAMILY HISTORY Problem Relation Age of Onset Breast Cancer Mother Diabetes Mother Heart Mother Cancer Father liver ca Diabetes Sister SOCIAL HISTORY Social History Tobacco Use Smoking status: Former Packs/day: .5 Types: Cigarettes Quit date: 07/21/2015 Years since quittin.7 Smokeless tobacco: Never Tobacco comments: was smoking less than one half pack; had cut back until able to quit 08/10/2009 Vaping Use Vaping Use: Never used Substance Use Topics Alcohol use: Yes Comment: rarely Drug use: No REVIEW OF SYMPTOMS: The review of systems data was entered by the nurse and reviewed by pa Nursing Notes: Judy Wang RN 04/23/2024 3:48 PM Signed REVIEW OF SYSTEMS: General: The patient NOTES fatigue, NOTES weight loss, denies weight gain, denies feeling hot, and denies feelings of cold. Eyes: The patient denies glaucoma, denies eye injury/surgery, wears glasses or contacts. Ear/Nose/Throat: The patient NOTES allergies, denies hayfever, denies ear infections, and NOTES bloody noses. Cardiovascular: The patient denies chest pain, denies heart disease, denies high blood pressure,denies cardiac stent, denies prior heart attack, denies irregular heart beat, NOTES high cholesterol, denies poor circulation, denies heart failure, other cardiac issues, denies claudication, NOTES cold feet, denies peripheral arterial stent. Respiratory: The patient denies tuberculosis, denies pneumonia, denies frequent cough, denies pulmonary embolism, denies shortness of breath, and denies coughing up blood. Gastrointestinal: The patient denies difficulty swallowing, NOTES acid reflux, denies ulcers, denies vomiting, denies jaundice/hepatitis, NOTES gallbladder problems, denies black or tarry stools, denies hemorrhoids, denies bleeding from rectum, denies diverticulitis, denies constipation, denies diarrhea, denies loss of stool control, and denies hernias. Kidney/Bladder: The patient denies kidney stones, denies urine infections, and denies bloody urine. Skin: The patient denies a history of skin cancer, denies bleeding/changing moles, and denies a history of skin rash. Neurologic: The patient denies a history of epilepsy/convulsions, NOTES headaches, denies head/spinal injuries, and denies stroke/TIA. Psychiatric: The patient denies psychiatric medications, denies depression, and denies voices, denies substance abuse. Endocrine: The patient denies thyroid disorders, denies diabetes, and denies hormonal problems. Hematologic: The patient denies a history of bruising, denies bleeding, and denies anemia, denies blood clots. Infections: The patient denies a history of measles and mumps, denies rheumatic fever, and denies sexually transmitted diseases. Musculoskeletal: The patient NOTES back pain/injury, NOTES back problems, denies sciatica, denies knee/foot trouble, denies arthritis, or denies gout. When was patient's last Mammogram screening? 2018 Last Colonoscopy: 2019 BERNARDO Smith Rhonda, RN 04/23/2024 3:50 PM Signed Patient here for EGD consultation. Instructions given by Amanda Powers CNP. [place] [facility] schedulers will contact patient with procedure date for the [facility] Gurpreet. Judy Wang RN PHYSICAL EXAMINATION: General: The patient is 63 year old, female well nourished, well hydrated in no acute distress. The patient is oriented to time, place, and person. VITALS: Blood pressure 118/60, pulse 90, temperature 36.1 C (97 F), height 167.6 cm (5' 6), weight 61.8 kg (136 lb 3.2 oz), last menstrual period 10/18/2006, SpO2 100%. Body mass index is 21.98 kg/m . HEENT: Normal cephalic, ataumatic, pupils are equally round, sclera are anicteric, mucous membranes are moist, oropharynx is clear. Neck has no masses, asymmetry or lymphadenopathy. Respiratory: Clear to auscultation and percussion. Normal respiratory excursion and pattern. Cardiac: Examination is regular rate and rhythm. Normal S1/S2 Abdominal exam: Soft, nontender, with no palpable masses. No hepatosplenomegaly. No palpable hernias. Extremities: no clubbing, cyanosis or edema. No adenopathy. LABORATORY VALUES: As Noted RADIOLOGIC STUDIES: As Noted Assessment ASSESSMENT/PLAN: 1. Dysphagia, unspecified type - ICD9: 787.20, ICD10: R13.10 (primary diagnosis) - EGD DIAGNOSTIC 2. Gastroesophageal reflux disease, unspecified whether esophagitis present - ICD9: 530.81, ICD10: K21.9 - EGD DIAGNOSTIC 3. Left lower quadrant abdominal pain - ICD9: 789.04, ICD10: R10.32 - Discussed the need to schedule [facility] appointment also d/t the LLQ pain during intercourse and bleeding - CT ABD/PEL WO IVCON PLAN: I have reviewed my findings with the surgeon. Will plan for upper endoscopy. We discussed the risks and benefits of the planned endoscopy. I have informed the patient that complications can occur including failure to complete the endoscopy and perforation. Saulo had the opportunity to ask questions concerning the planned endoscopy. My staff has also explained the procedure to the patient in understandable terms and has given the patient printed material concerning the procedure. Saulo freely consents to surgery. I have explained to the patient the difference between IV conscious sedation and MAC anesthesia - and I have offered either, according to the patient's wishes. I have explained that with IV conscious sedation there is no anesthesia provider available and therefore there is a limitation of the amount of IV medications that can be given and that the patient may wake up in the middle of the procedure and/or experience pain/discomfort during the procedure. Further discussion was done and the patient was given the opportunity to ask questions and all questions were answered. Saulo chooses IV conscious sedation. Saulo was counseled that if there are changes in his/her medical condition, to let the office know if surgery should proceed. If there are changes in patient's medical condition from time of this encounter to the day of the procedure that preclude anesthesia, patient may have procedure cancelled for patient's safety. Diagnoses: (R13.10) Dysphagia, unspecified type (primary encounter diagnosis) (K21.9) Gastroesophageal reflux disease, unspecified whether esophagitis present (R10.32) Left lower quadrant abdominal pain Consultation requested by Carlee Tyler for an opinion regarding dysphagia, voice hoarseness and throat nodules. My final recommendations will be communicated back to the requesting physician by way of shared Medical record or letter to requesting physician via US mail. Portions of this documentation were copied and pasted from previous office visit notes in order to provide a cohesive continuity of the history. The note has been reviewed and edited and updated as necessary. Amanda Powers APRN.[employer] TECHNICIAN UPDATED HISTORY AND PHYSICAL EXAMINATION SERVICE DATE: 05/08/2024 SERVICE TIME: 11:35 AM PHYSICAL EXAM MUST BE COMPLETED ON ADMISSION The History and Physical (completed in the past 30 days) has been reviewed and the patient has been examined. The contents accurately reflect the patient's condition with the following additions or revisions since the H&P was completed. Examination indicates no changes. This H&P can be found in the attached. SIGNATURE: Jayjay Field III, MD PATIENT NAME: Saulo Geiger DATE: May 08, 2024 TIME: 11:34 AM T [facility] 05-08-2024 History and physical note HISTORY AND PHYSICAL Saulo Geiger : 1960 REFERRING PHYSICIAN: Cheyenne Gilbert [address] [place] [address] CHIEF COMPLAINT: Patient presents with: Consult: EGD consultation. HPI: Saulo is a 63 year old female referred for endoscopy. Saulo notes dysphagia with solids and liquids, horse voice and increased throat clearing. She was seen by her PCP for lumps in her throat, that she can feel on the outside- had thyroid US which was normal C/O nausea Takes protonix BID with no relief C/O LLQ pain that is present only when laying supine. This has been ongoing for the last 3 months and resolves on its own. The patient also refers that during recent intercourse with the same pain was aggravated and there was scant bleeding afterwards. Refers she had a tubal ligation many years ago Saulo denies constipation and refers that since her cholecystectomy she has had issue with diarrhea Patient denies any change in bowel habits, weight changes, blood in stools, black tarry stools or Denies family history of colon issues. Saulo has undergone prior endoscopy. Last EGD was 03/2017 at [facility] with Dr. Alejo, sedation received Midazolam 5 mg IV, Fentanyl 50 micrograms IV, Impression: - Z-line irregular, 39 cm from the incisors. Biopsied. - Erythematous mucosa in the antrum. Biopsied. - Normal duodenal bulb and second portion of the duodenum. Biopsied. Pathology: CONVERTED FINAL DIAGNOSIS 1. Duodenum, second portion, biopsy [...] for intestinal metaplasia and dysplasia. SS/rw 04/06/2017 Last colonoscopy was with Dr. Alejo in 2022 at [facility] which was normal and not due for 10 years. CURRENT MEDICATIONS Current Outpatient Medications Medication Sig cholecalciferol (VITAMIN D3) 1,000 unit tab tablet Take 1 tablet by mouth once daily. loperamide (ANTI-DIARRHEAL) 2 mg cap(s) Take 1 capsule by mouth four times a day as needed for diarrhea. dilTIAZem CD (CARTIA XT) 180 mg 24 hr capsule Take 1 capsule by mouth once daily. naratriptan (AMERGE) 2.5 mg tablet Take 1 tablet (2.5 mg) by mouth as needed. 2.5 mg at onset of headache, may repeat in 4 hours if needed topiramate (TOPAMAX) 100 mg tablet TAKE 2 TABLETS TWICE A DAY IN THE MORNING AND AT BEDTIME pantoprazole DR (PROTONIX) 40 mg tablet Take 1 tablet by mouth two times a day before meals at 6 am and 4 pm. Take on empty stomach, 1/2 hr before meal. cyclobenzaprine (FLEXERIL) 10 mg tablet Take 1 tablet by mouth at bedtime as needed for muscle spasm or pain. cholestyramine-aspartame (CHOLESTYRAMINE LIGHT) 4 gram powder Take 4 g by mouth three times a day with meals. fluticasone (FLONASE) 50 mcg/actuation nasal spray Use 2 Sprays in each nostril once daily. Rinse mouth after use. ibuprofen (MOTRIN) 800 mg tablet Take 1 tablet by mouth every 8 hours as needed for pain. Take with food. promethazine (PHENERGAN) 25 mg tablet Take 0.5-1 tablets by mouth every 6 hours as needed. predniSONE (DELTASONE) 5 mg tablet Take two tablets for one week then one tablet for one week. For back pain No current facility-administered medications for this visit. ALLERGIES: Bee Venom Protein (Honey Bee), Morphine, Relafen [Nabumetone], Venom-Honey Bee, and Zolpidem PAST MEDICAL HISTORY PAST MEDICAL HISTORY 04/28/2008: Bee sting allergy No date: Concussion with no loss of consciousness 11/30/2006: Displacement of intervertebral disc, site unspecified, without myelopathy Comment: [facility] claim No date: Disturbance of skin sensation No date: Esophageal reflux No date: Headaches Comment: migraines No date: Hypercholesteremia No date: Mental disorder Comment: anxiety 2013: Multiple rib fractures Comment: Fell down stairs to basement-- 5th and 6th rib fractures and left great toe fracture No date: Snoring No date: Sprain of lumbosacral (joint) (ligament) No date: Sprain of neck Comment: [facility] claim No date: Sprain of thoracic region Comment: [facility] claim 07/29/2015: Tubular adenoma of colon Comment: Dr. Caban No date: Variants of migraine, not elsewhere classified, without mention of intractable migraine without mention of status migrainosus PAST SURGICAL HISTORY PAST SURGICAL HISTORY 02/26/2017: CHOLECYSTECTOMY Comment: Cholecystectomy; [facility] with Dr. Alejo 07/29/2015: COLONOSCOPY FLX DX W/COLLJ SPEC WHEN PFRMD Comment: Colonoscopy 2019: COLONOSCOPY SCREENING 06/28/2023: COLONOSCOPY SCREENING Comment: repeat in 10 years, Dr. Alejo 07/29/2015: ESOPHAGOGASTRODUODENOSCOPY TRANSORAL DIAGNOSTIC Comment: EGD 04/05/2017: ESOPHAGOGASTRODUODENOSCOPY TRANSORAL DIAGNOSTIC Comment: EGD No date: PAST SURGICAL HISTORY OF Comment: bilat feet - reconstruction FAMILY HISTORY FAMILY HISTORY Problem Relation Age of Onset Breast Cancer Mother Diabetes Mother Heart Mother Cancer Father liver ca Diabetes Sister SOCIAL HISTORY Social History Tobacco Use Smoking status: Former Packs/day: .5 Types: Cigarettes Quit date: 07/21/2015 Years since quittin.7 Smokeless tobacco: Never Tobacco comments: was smoking less than one half pack; had cut back until able to quit 08/10/2009 Vaping Use Vaping Use: Never used Substance Use Topics Alcohol use: Yes Comment: rarely Drug use: No REVIEW OF SYMPTOMS: The review of systems data was entered by the nurse and reviewed by me Nursing Notes: Judy Wang RN 04/23/2024 3:48 PM Signed REVIEW OF SYSTEMS: General: The patient NOTES fatigue, NOTES weight loss, denies weight gain, denies feeling hot, and denies feelings of cold. Eyes: The patient denies glaucoma, denies eye injury/surgery, wears glasses or contacts. Ear/Nose/Throat: The patient NOTES allergies, denies hayfever, denies ear infections, and NOTES bloody noses. Cardiovascular: The patient denies chest pain, denies heart disease, denies high blood pressure,denies cardiac stent, denies prior heart attack, denies irregular heart beat, NOTES high cholesterol, denies poor circulation, denies heart failure, other cardiac issues, denies claudication, NOTES cold feet, denies peripheral arterial stent. Respiratory: The patient denies tuberculosis, denies pneumonia, denies frequent cough, denies pulmonary embolism, denies shortness of breath, and denies coughing up blood. Gastrointestinal: The patient denies difficulty swallowing, NOTES acid reflux, denies ulcers, denies vomiting, denies jaundice/hepatitis, NOTES gallbladder problems, denies black or tarry stools, denies hemorrhoids, denies bleeding from rectum, denies diverticulitis, denies constipation, denies diarrhea, denies loss of stool control, and denies hernias. Kidney/Bladder: The patient denies kidney stones, denies urine infections, and denies bloody urine. Skin: The patient denies a history of skin cancer, denies bleeding/changing moles, and denies a history of skin rash. Neurologic: The patient denies a history of epilepsy/convulsions, NOTES headaches, denies head/spinal injuries, and denies stroke/TIA. Psychiatric: The patient denies psychiatric medications, denies depression, and denies voices, denies substance abuse. Endocrine: The patient denies thyroid disorders, denies diabetes, and denies hormonal problems. Hematologic: The patient denies a history of bruising, denies bleeding, and denies anemia, denies blood clots. Infections: The patient denies a history of measles and mumps, denies rheumatic fever, and denies sexually transmitted diseases. Musculoskeletal: The patient NOTES back pain/injury, NOTES back problems, denies sciatica, denies knee/foot trouble, denies arthritis, or denies gout. When was patient's last Mammogram screening? 2018 Last Colonoscopy: 2019 BERNARDO Smith Rhonda, RN 04/23/2024 3:50 PM Signed Patient here for EGD consultation. Instructions given by Amanda Powers CNP. [place] schedulers will contact patient with procedure date for the [facility] Gurpreet. Judy Wang RN PHYSICAL EXAMINATION: General: The patient is 63 year old, female well nourished, well hydrated in no acute distress. The patient is oriented to time, place, and person. VITALS: Blood pressure 118/60, pulse 90, temperature 36.1 C (97 F), height 167.6 cm (5' 6), weight 61.8 kg (136 lb 3.2 oz), last menstrual period 10/18/2006, SpO2 100%. Body mass index is 21.98 kg/m . HEENT: Normal cephalic, ataumatic, pupils are equally round, sclera are anicteric, mucous membranes are moist, oropharynx is clear. Neck has no masses, asymmetry or lymphadenopathy. Respiratory: Clear to auscultation and percussion. Normal respiratory excursion and pattern. Cardiac: Examination is regular rate and rhythm. Normal S1/S2 Abdominal exam: Soft, nontender, with no palpable masses. No hepatosplenomegaly. No palpable hernias. Extremities: no clubbing, cyanosis or edema. No adenopathy. LABORATORY VALUES: As Noted RADIOLOGIC STUDIES: As Noted Assessment ASSESSMENT/PLAN: 1. Dysphagia, unspecified type - ICD9: 787.20, ICD10: R13.10 (primary diagnosis) - EGD DIAGNOSTIC 2. Gastroesophageal reflux disease, unspecified whether esophagitis present - ICD9: 530.81, ICD10: K21.9 - EGD DIAGNOSTIC 3. Left lower quadrant abdominal pain - ICD9: 789.04, ICD10: R10.32 - Discussed the need to schedule [facility] appointment also d/t the LLQ pain during intercourse and bleeding - CT ABD/PEL WO IVCON PLAN: I have reviewed my findings with the surgeon. Will plan for upper endoscopy. We discussed the risks and benefits of the planned endoscopy. I have informed the patient that complications can occur including failure to complete the endoscopy and perforation. Saulo had the opportunity to ask questions concerning the planned endoscopy. My staff has also explained the procedure to the patient in understandable terms and has given the patient printed material concerning the procedure. Saulo freely consents to surgery. I have explained to the patient the difference between IV conscious sedation and MAC anesthesia - and I have offered either, according to the patient's wishes. I have explained that with IV conscious sedation there is no anesthesia provider available and therefore there is a limitation of the amount of IV medications that can be given and that the patient may wake up in the middle of the procedure and/or experience pain/discomfort during the procedure. Further discussion was done and the patient was given the opportunity to ask questions and all questions were answered. Saulo chooses IV conscious sedation. Saulo was counseled that if there are changes in his/her medical condition, to let the office know if surgery should proceed. If there are changes in patient's medical condition from time of this encounter to the day of the procedure that preclude anesthesia, patient may have procedure cancelled for patient's safety. Diagnoses: (R13.10) Dysphagia, unspecified type (primary encounter diagnosis) (K21.9) Gastroesophageal reflux disease, unspecified whether esophagitis present (R10.32) Left lower quadrant abdominal pain Consultation requested by Carlee Tyler for an opinion regarding dysphagia, voice hoarseness and throat nodules. My final recommendations will be communicated back to the requesting physician by way of shared Medical record or letter to requesting physician via [place] mail. Portions of this documentation were copied and pasted from previous office visit notes in order to provide a cohesive continuity of the history. The note has been reviewed and edited and updated as necessary. Amanda Powers APRN.[employer] TECHNICIAN UPDATED HISTORY AND PHYSICAL EXAMINATION SERVICE DATE: 05/08/2024 SERVICE TIME: 11:35 AM PHYSICAL EXAM MUST BE COMPLETED ON ADMISSION The History and Physical (completed in the past 30 days) has been reviewed and the patient has been examined. The contents accurately reflect the patient's condition with the following additions or revisions since the H&P was completed. Examination indicates no changes. This H&P can be found in the attached. SIGNATURE: Jayjay Field III, MD PATIENT NAME: Saulo Geiger DATE: May 08, 2024 TIME: 11:34 AM documented in this encounter [facility] 05-07-2024 Telephone encounter Note Can you please call Saulo and let her know that her CT of her abd was normal and there is no evidence of a cause for her LLQ pain. Let her know she should schedule an appoint with [facility] for additional testing. She already has an order placed. ThanksAmanda APRN.[employer] TECHNICIAN [facility] Work Phone: 05-02-2024 History of Present illness Narrative Radiology Service Progress Note PATIENT NAME: Saulo Geiger DATE OF SERVICE: May 02, 2024 TIME: 3:08 PM PATIENT IDENTITY VERIFICATION COMPLETED USING TWO (2) IDENTIFIERS: Name and Date of confirmed by patient verbally. FALL SCREENING: Has the patient had 2 falls in the last year or 1 fall with injury or currently using an Ambulatory Assistive Device (Walker, Cane, Wheelchair, Crutches, etc.)? No PATIENT GENDER DATA: female PATIENT RELEVANT IMPLANT DATA REVIEWED: Yes PATIENT PRESENTS WITH AN IMPLANTABLE OR ATTACHED SEWING MACHINE ATTACHMENT TESTER: No RADIOLOGY DEPARTMENT: CT; Exam(s) Completed: Abdomen/Pelvis PERIPHERAL IV DATA: Not applicable SIGNED BY: RT Luzmaria(R) May 02, 2024 3:08 PM documented in this encounter [facility] 04-23-2024 Nurse Note Patient here for EGD consultation. Instructions given by Amanda Powers CNP. [facility] schedulers will contact patient with procedure date for the [facility]. Judy Wang RN [facility] 04-23-2024 Nurse Note Patient here for EGD consultation. Instructions given by Amanda Powers CNP. [facility] schedulers will contact patient with procedure date for the [facility]. Judy Wang RN REVIEW OF SYSTEMS: General: The patient NOTES fatigue, NOTES weight loss, denies weight gain, denies feeling hot, and denies feelings of cold. Eyes: The patient denies glaucoma, denies eye injury/surgery, wears glasses or contacts. Ear/Nose/Throat: The patient NOTES allergies, denies hayfever, denies ear infections, and NOTES bloody noses. Cardiovascular: The patient denies chest pain, denies heart disease, denies high blood pressure,denies cardiac stent, denies prior heart attack, denies irregular heart beat, NOTES high cholesterol, denies poor circulation, denies heart failure, other cardiac issues, denies claudication, NOTES cold feet, denies peripheral arterial stent. Respiratory: The patient denies tuberculosis, denies pneumonia, denies frequent cough, denies pulmonary embolism, denies shortness of breath, and denies coughing up blood. Gastrointestinal: The patient denies difficulty swallowing, NOTES acid reflux, denies ulcers, denies vomiting, denies jaundice/hepatitis, NOTES gallbladder problems, denies black or tarry stools, denies hemorrhoids, denies bleeding from rectum, denies diverticulitis, denies constipation, denies diarrhea, denies loss of stool control, and denies hernias. Kidney/Bladder: The patient denies kidney stones, denies urine infections, and denies bloody urine. Skin: The patient denies a history of skin cancer, denies bleeding/changing moles, and denies a history of skin rash. Neurologic: The patient denies a history of epilepsy/convulsions, NOTES headaches, denies head/spinal injuries, and denies stroke/TIA. Psychiatric: The patient denies psychiatric medications, denies depression, and denies voices, denies substance abuse. Endocrine: The patient denies thyroid disorders, denies diabetes, and denies hormonal problems. Hematologic: The patient denies a history of bruising, denies bleeding, and denies anemia, denies blood clots. Infections: The patient denies a history of measles and mumps, denies rheumatic fever, and denies sexually transmitted diseases. Musculoskeletal: The patient NOTES back pain/injury, NOTES back problems, denies sciatica, denies knee/foot trouble, denies arthritis, or denies gout. When was patient's last Mammogram screening? 2018 Last Colonoscopy: 2019 Judy Wang RN documented in this encounter [facility] 04-23-2024 Nurse Note REVIEW OF SYSTEMS: General: The patient NOTES fatigue, NOTES weight loss, denies weight gain, denies feeling hot, and denies feelings of cold. Eyes: The patient denies glaucoma, denies eye injury/surgery, wears glasses or contacts. Ear/Nose/Throat: The patient NOTES allergies, denies hayfever, denies ear infections, and NOTES bloody noses. Cardiovascular: The patient denies chest pain, denies heart disease, denies high blood pressure,denies cardiac stent, denies prior heart attack, denies irregular heart beat, NOTES high cholesterol, denies poor circulation, denies heart failure, other cardiac issues, denies claudication, NOTES cold feet, denies peripheral arterial stent. Respiratory: The patient denies tuberculosis, denies pneumonia, denies frequent cough, denies pulmonary embolism, denies shortness of breath, and denies coughing up blood. Gastrointestinal: The patient denies difficulty swallowing, NOTES acid reflux, denies ulcers, denies vomiting, denies jaundice/hepatitis, NOTES gallbladder problems, denies black or tarry stools, denies hemorrhoids, denies bleeding from rectum, denies diverticulitis, denies constipation, denies diarrhea, denies loss of stool control, and denies hernias. Kidney/Bladder: The patient denies kidney stones, denies urine infections, and denies bloody urine. Skin: The patient denies a history of skin cancer, denies bleeding/changing moles, and denies a history of skin rash. Neurologic: The patient denies a history of epilepsy/convulsions, NOTES headaches, denies head/spinal injuries, and denies stroke/TIA. Psychiatric: The patient denies psychiatric medications, denies depression, and denies voices, denies substance abuse. Endocrine: The patient denies thyroid disorders, denies diabetes, and denies hormonal problems. Hematologic: The patient denies a history of bruising, denies bleeding, and denies anemia, denies blood clots. Infections: The patient denies a history of measles and mumps, denies rheumatic fever, and denies sexually transmitted diseases. Musculoskeletal: The patient NOTES back pain/injury, NOTES back problems, denies sciatica, denies knee/foot trouble, denies arthritis, or denies gout. When was patient's last Mammogram screening? 2018 Last Colonoscopy: 2019 Judy Wang RN [facility] 04-23-2024 History of Present illness Narrative HISTORY AND PHYSICAL Saulo Geiger : 1960 REFERRING PHYSICIAN: Cheyenne Gilbert [address] [id number] CHIEF COMPLAINT: Patient presents with: Consult: EGD consultation. HPI: Saulo is a 63 year old female referred for endoscopy. Saulo notes dysphagia with solids and liquids, horse voice and increased throat clearing. She was seen by her PCP for lumps in her throat, that she can feel on the outside- had thyroid US which was normal C/O nausea Takes protonix BID with no relief C/O LLQ pain that is present only when laying supine. This has been ongoing for the last 3 months and resolves on its own. The patient also refers that during recent intercourse with the same pain was aggravated and there was scant bleeding afterwards. Refers she had a tubal ligation many years ago Saulo denies constipation and refers that since her cholecystectomy she has had issue with diarrhea Patient denies any change in bowel habits, weight changes, blood in stools, black tarry stools or Denies family history of colon issues. Saulo has undergone prior endoscopy. Last EGD was 03/2017 at [facility] with Dr. Alejo, sedation received Midazolam 5 mg IV, Fentanyl 50 micrograms IV, Impression: - Z-line irregular, 39 cm from the incisors. Biopsied. - Erythematous mucosa in the antrum. Biopsied. - Normal duodenal bulb and second portion of the duodenum. Biopsied. Pathology: CONVERTED FINAL DIAGNOSIS 1. Duodenum, second portion, biopsy [...] for intestinal metaplasia and dysplasia. SS/rw 04/06/2017 Last colonoscopy was with Dr. Alejo in 2022 at [facility] which was normal and not due for 10 years. Current Outpatient Medications Medication Sig cholecalciferol (VITAMIN D3) 1,000 unit tab tablet Take 1 tablet by mouth once daily. loperamide (ANTI-DIARRHEAL) 2 mg cap(s) Take 1 capsule by mouth four times a day as needed for diarrhea. dilTIAZem CD (CARTIA XT) 180 mg 24 hr capsule Take 1 capsule by mouth once daily. naratriptan (AMERGE) 2.5 mg tablet Take 1 tablet (2.5 mg) by mouth as needed. 2.5 mg at onset of headache, may repeat in 4 hours if needed topiramate (TOPAMAX) 100 mg tablet TAKE 2 TABLETS TWICE A DAY IN THE MORNING AND AT BEDTIME pantoprazole DR (PROTONIX) 40 mg tablet Take 1 tablet by mouth two times a day before meals at 6 am and 4 pm. Take on empty stomach, 1/2 hr before meal. cyclobenzaprine (FLEXERIL) 10 mg tablet Take 1 tablet by mouth at bedtime as needed for muscle spasm or pain. cholestyramine-aspartame (CHOLESTYRAMINE LIGHT) 4 gram powder Take 4 g by mouth three times a day with meals. fluticasone (FLONASE) 50 mcg/actuation nasal spray Use 2 Sprays in each nostril once daily. Rinse mouth after use. ibuprofen (MOTRIN) 800 mg tablet Take 1 tablet by mouth every 8 hours as needed for pain. Take with food. promethazine (PHENERGAN) 25 mg tablet Take 0.5-1 tablets by mouth every 6 hours as needed. predniSONE (DELTASONE) 5 mg tablet Take two tablets for one week then one tablet for one week. For back pain No current facility-administered medications for this visit. ALLERGIES: Bee Venom Protein (Honey Bee), Morphine, Relafen [Nabumetone], Venom-Honey Bee, and Zolpidem PAST MEDICAL HISTORY 04/28/2008: Bee sting allergy No date: Concussion with no loss of consciousness 11/30/2006: Displacement of intervertebral disc, site unspecified, without myelopathy Comment: [facility] claim No date: Disturbance of skin sensation No date: Esophageal reflux No date: Headaches Comment: migraines No date: Hypercholesteremia No date: Mental disorder Comment: anxiety 2012: Multiple rib fractures Comment: Fell down stairs to basement-- 5th and 6th rib fractures and left great toe fracture No date: Snoring No date: Sprain of lumbosacral (joint) (ligament) No date: Sprain of neck Comment: C claim No date: Sprain of thoracic region Comment: [facility] claim 07/29/2015: Tubular adenoma of colon Comment: Dr. Caban No date: Variants of migraine, not elsewhere classified, without mention of intractable migraine without mention of status migrainosus PAST SURGICAL HISTORY 02/26/2017: CHOLECYSTECTOMY Comment: Cholecystectomy; [facility] with Dr. Alejo 07/29/2015: COLONOSCOPY FLX DX W/COLLJ SPEC WHEN PFRMD Comment: Colonoscopy 2019: COLONOSCOPY SCREENING 06/28/2023: COLONOSCOPY SCREENING Comment: repeat in 10 years, Dr. Alejo 07/29/2015: ESOPHAGOGASTRODUODENOSCOPY TRANSORAL DIAGNOSTIC Comment: EGD 04/05/2017: ESOPHAGOGASTRODUODENOSCOPY TRANSORAL DIAGNOSTIC Comment: EGD No date: PAST SURGICAL HISTORY OF Comment: bilat feet - reconstruction FAMILY HISTORY Problem Relation Age of Onset Breast Cancer Mother Diabetes Mother Heart Mother Cancer Father liver ca Diabetes Sister Social History Tobacco Use Smoking status: Former Packs/day: .5 Types: Cigarettes Quit date: 07/21/2015 Years since quittin.7 Smokeless tobacco: Never Tobacco comments: was smoking less than one half pack; had cut back until able to quit 08/10/2009 Vaping Use Vaping Use: Never used Substance Use Topics Alcohol use: Yes Comment: rarely Drug use: No REVIEW OF SYMPTOMS: The review of systems data was entered by the nurse and reviewed by me Nursing Notes: Judy Wang RN 04/23/2024 3:48 PM Signed REVIEW OF SYSTEMS: General: The patient NOTES fatigue, NOTES weight loss, denies weight gain, denies feeling hot, and denies feelings of cold. Eyes: The patient denies glaucoma, denies eye injury/surgery, wears glasses or contacts. Ear/Nose/Throat: The patient NOTES allergies, denies hayfever, denies ear infections, and NOTES bloody noses. Cardiovascular: The patient denies chest pain, denies heart disease, denies high blood pressure,denies cardiac stent, denies prior heart attack, denies irregular heart beat, NOTES high cholesterol, denies poor circulation, denies heart failure, other cardiac issues, denies claudication, NOTES cold feet, denies peripheral arterial stent. Respiratory: The patient denies tuberculosis, denies pneumonia, denies frequent cough, denies pulmonary embolism, denies shortness of breath, and denies coughing up blood. Gastrointestinal: The patient denies difficulty swallowing, NOTES acid reflux, denies ulcers, denies vomiting, denies jaundice/hepatitis, NOTES gallbladder problems, denies black or tarry stools, denies hemorrhoids, denies bleeding from rectum, denies diverticulitis, denies constipation, denies diarrhea, denies loss of stool control, and denies hernias. Kidney/Bladder: The patient denies kidney stones, denies urine infections, and denies bloody urine. Skin: The patient denies a history of skin cancer, denies bleeding/changing moles, and denies a history of skin rash. Neurologic: The patient denies a history of epilepsy/convulsions, NOTES headaches, denies head/spinal injuries, and denies stroke/TIA. Psychiatric: The patient denies psychiatric medications, denies depression, and denies voices, denies substance abuse. Endocrine: The patient denies thyroid disorders, denies diabetes, and denies hormonal problems. Hematologic: The patient denies a history of bruising, denies bleeding, and denies anemia, denies blood clots. Infections: The patient denies a history of measles and mumps, denies rheumatic fever, and denies sexually transmitted diseases. Musculoskeletal: The patient NOTES back pain/injury, NOTES back problems, denies sciatica, denies knee/foot trouble, denies arthritis, or denies gout. When was patient's last Mammogram screening? 2018 Last Colonoscopy: 2019 BERNARDO Smith Rhonda, RN 04/23/2024 3:50 PM Signed Patient here for EGD consultation. Instructions given by Amanda Powers CNP. [facility] surgery schedulers will contact patient with procedure date for the [facility]. Judy Wang RN PHYSICAL EXAMINATION: General: The patient is 63 year old, female well nourished, well hydrated in no acute distress. The patient is oriented to time, place, and person. VITALS: Blood pressure 118/60, pulse 90, temperature 36.1 C (97 F), height 167.6 cm (5' 6), weight 61.8 kg (136 lb 3.2 oz), last menstrual period 10/18/2006, SpO2 100%. Body mass index is 21.98 kg/m . HEENT: Normal cephalic, ataumatic, pupils are equally round, sclera are anicteric, mucous membranes are moist, oropharynx is clear. Neck has no masses, asymmetry or lymphadenopathy. Respiratory: Clear to auscultation and percussion. Normal respiratory excursion and pattern. Cardiac: Examination is regular rate and rhythm. Normal S1/S2 Abdominal exam: Soft, nontender, with no palpable masses. No hepatosplenomegaly. No palpable hernias. Extremities: no clubbing, cyanosis or edema. No adenopathy. LABORATORY VALUES: As Noted RADIOLOGIC STUDIES: As Noted Assessment ASSESSMENT/PLAN: 1. Dysphagia, unspecified type - ICD9: 787.20, ICD10: R13.10 (primary diagnosis) - EGD DIAGNOSTIC 2. Gastroesophageal reflux disease, unspecified whether esophagitis present - ICD9: 530.81, ICD10: K21.9 - EGD DIAGNOSTIC 3. Left lower quadrant abdominal pain - ICD9: 789.04, ICD10: R10.32 - Discussed the need to schedule [facility] appointment also d/t the LLQ pain during intercourse and bleeding - CT ABD/PEL WO IVCON PLAN: I have reviewed my findings with the surgeon. Will plan for upper endoscopy. We discussed the risks and benefits of the planned endoscopy. I have informed the patient that complications can occur including failure to complete the endoscopy and perforation. Saulo had the opportunity to ask questions concerning the planned endoscopy. My staff has also explained the procedure to the patient in understandable terms and has given the patient printed material concerning the procedure. Saulo freely consents to surgery. I have explained to the patient the difference between IV conscious sedation and MAC anesthesia - and I have offered either, according to the patient's wishes. I have explained that with IV conscious sedation there is no anesthesia provider available and therefore there is a limitation of the amount of IV medications that can be given and that the patient may wake up in the middle of the procedure and/or experience pain/discomfort during the procedure. Further discussion was done and the patient was given the opportunity to ask questions and all questions were answered. Saulo chooses IV conscious sedation. Saulo was counseled that if there are changes in his/her medical condition, to let the office know if surgery should proceed. If there are changes in patient's medical condition from time of this encounter to the day of the procedure that preclude anesthesia, patient may have procedure cancelled for patient's safety. Diagnoses: (R13.10) Dysphagia, unspecified type (primary encounter diagnosis) (K21.9) Gastroesophageal reflux disease, unspecified whether esophagitis present (R10.32) Left lower quadrant abdominal pain Consultation requested by Carlee Tyler for an opinion regarding dysphagia, voice hoarseness and throat nodules. My final recommendations will be communicated back to the requesting physician by way of shared Medical record or letter to requesting physician via [place] mail. Portions of this documentation were copied and pasted from previous office visit notes in order to provide a cohesive continuity of the history. The note has been reviewed and edited and updated as necessary. Amanda Powers APRN.BONY documented in this encounter [facility] 04-22-2024 Telephone encounter Note Patient calls and notified of results and providers instructions. All patient questions answered appropriately. Patient verbalizes understanding. Chyna Sotelo RN [facility] 04-22-2024 Miscellaneous Notes Patient calls and notified of results and providers instructions. All patient questions answered appropriately. Patient verbalizes understanding. Chyna Sotelo RN TC to pt with no answer, left VM to return call. Beulah Montalvo LPN Per MRI rad report, the study did not show an etiology of headaches including no acute changes or masses. Eduardo Holden MD Pt had MRI of Brain on 04/10 and is requesting the results. Holly Anderson LPN documented in this encounter [facility] 04-22-2024 Telephone encounter Note TC to pt with no answer, left VM to return call. Beulah Montalvo LPN [facility] 04-21-2024 Telephone encounter Note Per MRI rad report, the study did not show an etiology of headaches including no acute changes or masses. Eduardo Holden MD [facility] Work Phone: 04-21-2024 Telephone encounter Note Pt had MRI of Brain on 04/10 and is requesting the results. Holly Andersno LPN [facility] 04-17-2024 Telephone encounter Note Procedure(s) being scheduled: MBBs 1.Are you diabetic No 2. Are you on any blood thinners? No 3. Are you taking any aspirin? No 4. Are you currently taking any antibiotics? No 5. Do you have any allergies to latex? No 6. Do you have any allergies to seafood or shellfish? No 7. Do you have any allergies to x-ray dye? No 8. Did the physician instruct you to take any medication prior to your procedure? No 9. Does this procedure require a lokie driver? Yes If yes, has patient been notified that a lokie driver is needed and must be present at check in? yes 10. Were the pre-procedure instructions explained and provided to the patient? Yes 11. Do you have a pacemaker? No 12. Do you have an internal stimulator of any kind? No 13. Have you received the COVID-19 Vaccine? No. (Patient should not receive a procedure including steroids 14 days prior to their first dose of the COVID vaccine. They should not receive any procedure containing steroids in the time frame between their 1st and 2nd doses of the COVID vaccine. They should not receive a procedure containing steroids 14 days after their 2nd dose of the COVID vaccine.) Vinny Snell [facility] 04-17-2024 Miscellaneous Notes Procedure(s) being scheduled: MBBs 1.Are you diabetic No 2. Are you on any blood thinners? No 3. Are you taking any aspirin? No 4. Are you currently taking any antibiotics? No 5. Do you have any allergies to latex? No 6. Do you have any allergies to seafood or shellfish? No 7. Do you have any allergies to x-ray dye? No 8. Did the physician instruct you to take any medication prior to your procedure? No 9. Does this procedure require a lokie driver? Yes If yes, has patient been notified that a lokie driver is needed and must be present at check in? yes 10. Were the pre-procedure instructions explained and provided to the patient? Yes 11. Do you have a pacemaker? No 12. Do you have an internal stimulator of any kind? No 13. Have you received the COVID-19 Vaccine? No. (Patient should not receive a procedure including steroids 14 days prior to their first dose of the COVID vaccine. They should not receive any procedure containing steroids in the time frame between their 1st and 2nd doses of the COVID vaccine. They should not receive a procedure containing steroids 14 days after their 2nd dose of the COVID vaccine.) Vinny Snell documented in this encounter [facility] 04-17-2024 Note HNO ID: [id number] Author: LUIZ MARTIN LPN Service: ? Author Type: LICENSED NURSE Type: Progress Notes Filed: 04/17/2024 11:48 Note Text: Review of Systems Constitutional: Positive for activity change. Musculoskeletal: Positive for arthralgias, back pain, gait problem, neck pain and neck stiffness. Neurological: Positive for weakness, numbness and headaches. Psychiatric/Behavioral: Positive for sleep disturbance. [facility] 04-17-2024 History of Present illness Narrative Review of Systems Constitutional: Positive for activity change. Musculoskeletal: Positive for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 ill-appearing, toxic-appearing or diaphoretic. HENT: Head: Normocephalic. Right Ear: External ear normal. Left Ear: External ear normal. Nose: Nose normal. Eyes: General: Vision grossly intact. Conjunctiva/sclera: Conjunctivae normal. Pupils: Pupils are equal, round, and reactive to light. Neck: Thyroid: Thyromegaly present. Vascular: No JVD. Trachea: Trachea normal. Pulmonary: Effort: Pulmonary effort is normal. No accessory muscle usage, prolonged expiration or respiratory distress. Musculoskeletal: Cervical back: Neck supple. Lymphadenopathy: Cervical: No cervical adenopathy. Skin: General: Skin is warm and dry. Capillary Refill: Capillary refill takes less than 2 seconds. Neurological: General: No focal deficit present. Mental Status: She is alert and oriented to person, place, and time. Mental status is at baseline. Psychiatric: Attention and Perception: Attention and perception normal. Mood and Affect: Mood and affect normal. Speech: Speech normal. Behavior: Behavior normal. Behavior is cooperative. Thought Content: Thought content normal. Cognition and Memory: Cognition and memory normal. Judgment: Judgment normal. ASSESSMENT/PLAN: 1. Thyroid enlarged - ICD9: 240.9, ICD10: E04.9 (primary diagnosis) Repeat labs, get thyroid ultrasound, check swallow study. Call with results. - COMPLETE BLOOD COUNT AND DIFFERENTIAL - THYROID STIMULATING HORMONE - T3, FREE - T4 FREE/FREE THYROXINE - THYROID PEROXIDASE ANTIBODY 2. Pharyngeal dysphagia - ICD9: 787.23, ICD10: R13.13 - XR ESOPHAGRAM - US THYROID/PARATHYROID Portions of this note have been entered by ancillary staff. I have reviewed and when necessary edited, so that they are an adequate record of my encounter with this patient Please note that parts of this document were created using voice recognition software and therefore may contain grammatical errors. Patient verbalizes understanding of instructions from today's visit and in agreement with treatment plan. Questions answered. Agrees to call the office if questions, concerns of issues with acute symptoms not improving or if they worsen. See diagnoses and orders for additional plan(s). Allergies and medications were reviewed, list was updated, and refills given if needed. Past medical, surgical, social, and family history reviewed and updated as appropriate. Encouraged proper diet & exercise as well as compliance with taking medications. Age-appropriate health preventative measures were discussed. Return if symptoms worsen or fail to improve, for Keep next scheduled appointment.. Cheyenne Gilbert APRN-BONY documented in this encounter [facility] 03-17-2024 Telephone encounter Note Patient states lumps are on the inside of throat but can be felt on the outside, patient states has trouble swallowing and choking when talking. Appointment scheduled with Cheyenne . [facility] 03-17-2024 Miscellaneous Notes Patient states lumps are on the inside of throat but can be felt on the outside, patient states has trouble swallowing and choking when talking. Appointment scheduled with Cheyenne . Are the lumps on the outside or inside of her throat? If inside, then her symptoms are not from thyroid issue. Reviewed Carlee's note--sounded like she was having postnasal drainage causing her symptoms and was started on Flonase. No thyromegaly or lumps on thyroid were noted on exam. If she feels lumps on her neck, have her return to re-examine and see if lumps are on thyroid or elsewhere so can decide if needs ultrasound or CT soft tissues of neck. Make sure she is using pantoprazole since hoarseness, trouble swallowing and throat clearing can be due to uncontrolled reflux. Also avoid cold liquids, caffeine, tomato products and other foods that can trigger her reflux symptoms. Avoid eating less than 3 hours before bedtime. Would not take pills with pop--the carbonation could interfere with swallowing pills. Patient calling asking about lab results. Went over results, notes below from Carlee Tyler [employer] with understanding. Aware rx sent to pharmacy. Patient said she is having problems swallowing foods and liquids and noticed her she has lumps on her throat, her voice is more hoarse and has to clear her throat a lot. She is concerned that she may have thyroid nodules. She had choked 3 weeks ago taking a BBC aspirin with pop, but does not think that is still the issue. Aware [employer] is out of the office and sending note to PCP to review. Labs overall in acceptable range. Vitamin D is bit low. Sent in a prescription for this. She also looks a bit dehydrated. Recommend increasing fluid intake, aim for 64 ounces of fluid daily. Latest Ref Rng 03/04/2024 WBC 3.70 - 11.00 k/uL 6.73 RBC 3.90 - 5.20 m/uL 4.44 Hemoglobin 11.5 - 15.5 g/dL 14.2 Hematocrit 36.0 - 46.0 % 42.9 MCV 80.0 - 100.0 fL 96.6 MCH 26.0 - 34.0 pg 32.0 MCHC 30.5 - 36.0 g/dL 33.1 RDW-CV 11.5 - 15.0 % 12.8 Platelet Count 150 - 400 k/uL 225 MPV 9.0 - 12.7 fL 10.6 Neut% % 56.5 Abs Neut (ANC) 1.45 - 7.50 k/uL 3.79 Lymph% % 35.2 Abs Lymph 1.00 - 4.00 k/uL 2.37 Bourbon% % 5.9 Abs Bourbon <0.87 k/uL 0.40 Eosin% % 1.6 Abs Eosin <0.46 k/uL 0.11 Baso% % 0.7 Abs Baso <0.11 k/uL 0.05 Immature Gran % % 0.1 IMMATURE GRANS (ABS) <0.10 k/uL <0.03 NRBC /100 WBC 0.0 Absolute nRBC <0.01 k/uL <0.01 DTYPE Auto Protein, Total 6.3 - 8.0 g/dL 6.8 Albumin 3.9 - 4.9 g/dL 4.4 Calcium 8.5 - 10.2 mg/dL 9.5 Bilirubin, Total 0.2 - 1.3 mg/dL <0.2 (L) Alkaline Phosphatase 34 - 123 U/L 79 AST 13 - 35 U/L 16 ALT 7 - 38 U/L 14 Glucose 74 - 99 mg/dL 99 BUN 7 - 21 mg/dL 24 (H) Creatinine 0.58 - 0.96 mg/dL 1.14 (H) Sodium 136 - 144 mmol/L 144 Potassium 3.7 - 5.1 mmol/L 4.0 Chloride 98 - 107 mmol/L 114 (H) CO2 22 - 30 mmol/L 16 (L) Anion Gap 8 - 15 mmol/L 14 eGFR >=60 mL/min/1.73m 55 (L) Hemoglobin A1C 4.3 - 5.6 % 5.5 Estimated Average Glucose mg/dL 111 TSH 0.270 - 4.200 mIU/L 0.882 Vitamin B12 232 - 1,245 pg/mL 306 Vitamin D 25 Hydroxy 31.0 - 80.0 ng/mL 23.6 (L) Patient notified of provider message and verbalized understanding. She do not want to pursue swallow study at this time. However, patient wanted to know if provider had looked at lab results completed on Sunday of this week and if so if everything was acceptable. Please advise MRI was ordered by Dr Holden. She had an MRI of the cervical spine (the neck) completed at [facility] July 2023. This showed no acute fracture or other significant bony pathology. Minor bulging at the C5 and 6 level and small central disc protrusion at C6-7 mildly narrowing the central canal. No significant spinal stenosis or cord compression is present. See scanned documents. If she is sick with a sore throat should come in to be seen. Was not sick at her last visit. Did not talk about difficulty swallowing at her visit. Can complete a swallowing study if difficulty swallowing or choking on foods or aspirating. See if she would want to complete that. Pt was seen 03/04 and states she is still having a throat problem. Glands swollen and hard to swallow. Pt. is having MRI of brain and wants it to include her neck and throat area. Please advise. documented in this encounter [facility] 03-15-2024 Telephone encounter Note Are the lumps on the outside or inside of her throat? If inside, then her symptoms are not from thyroid issue. Reviewed Carlee's note--sounded like she was having postnasal drainage causing her symptoms and was started on Flonase. No thyromegaly or lumps on thyroid were noted on exam. If she feels lumps on her neck, have her return to re-examine and see if lumps are on thyroid or elsewhere so can decide if needs ultrasound or CT soft tissues of neck. Make sure she is using pantoprazole since hoarseness, trouble swallowing and throat clearing can be due to uncontrolled reflux. Also avoid cold liquids, caffeine, tomato products and other foods that can trigger her reflux symptoms. Avoid eating less than 3 hours before bedtime. Would not take pills with pop--the carbonation could interfere with swallowing pills. [facility] 03-10-2024 Telephone encounter Note Patient calling asking about lab results. Went over results, notes below from Carlee Tyler [employer] with understanding. Aware rx sent to pharmacy. Patient said she is having problems swallowing foods and liquids and noticed her she has lumps on her throat, her voice is more hoarse and has to clear her throat a lot. She is concerned that she may have thyroid nodules. She had choked 3 weeks ago taking a BBC aspirin with pop, but does not think that is still the issue. Aware [employer] is out of the office and sending note to PCP to review. [facility] 03-07-2024 Telephone encounter Note Labs overall in acceptable range. Vitamin D is bit low. Sent in a prescription for this. She also looks a bit dehydrated. Recommend increasing fluid intake, aim for 64 ounces of fluid daily. Latest Ref Rng 03/04/2024 WBC 3.70 - 11.00 k/uL 6.73 RBC 3.90 - 5.20 m/uL 4.44 Hemoglobin 11.5 - 15.5 g/dL 14.2 Hematocrit 36.0 - 46.0 % 42.9 MCV 80.0 - 100.0 fL 96.6 MCH 26.0 - 34.0 pg 32.0 MCHC 30.5 - 36.0 g/dL 33.1 RDW-CV 11.5 - 15.0 % 12.8 Platelet Count 150 - 400 k/uL 225 MPV 9.0 - 12.7 fL 10.6 Neut% % 56.5 Abs Neut (ANC) 1.45 - 7.50 k/uL 3.79 Lymph% % 35.2 Abs Lymph 1.00 - 4.00 k/uL 2.37 Bourbon% % 5.9 Abs Bourbon <0.87 k/uL 0.40 Eosin% % 1.6 Abs Eosin <0.46 k/uL 0.11 Baso% % 0.7 Abs Baso <0.11 k/uL 0.05 Immature Gran % % 0.1 IMMATURE GRANS (ABS) <0.10 k/uL <0.03 NRBC /100 WBC 0.0 Absolute nRBC <0.01 k/uL <0.01 DTYPE Auto Protein, Total 6.3 - 8.0 g/dL 6.8 Albumin 3.9 - 4.9 g/dL 4.4 Calcium 8.5 - 10.2 mg/dL 9.5 Bilirubin, Total 0.2 - 1.3 mg/dL <0.2 (L) Alkaline Phosphatase 34 - 123 U/L 79 AST 13 - 35 U/L 16 ALT 7 - 38 U/L 14 Glucose 74 - 99 mg/dL 99 BUN 7 - 21 mg/dL 24 (H) Creatinine 0.58 - 0.96 mg/dL 1.14 (H) Sodium 136 - 144 mmol/L 144 Potassium 3.7 - 5.1 mmol/L 4.0 Chloride 98 - 107 mmol/L 114 (H) CO2 22 - 30 mmol/L 16 (L) Anion Gap 8 - 15 mmol/L 14 eGFR >=60 mL/min/1.73m 55 (L) Hemoglobin A1C 4.3 - 5.6 % 5.5 Estimated Average Glucose mg/dL 111 TSH 0.270 - 4.200 mIU/L 0.882 Vitamin B12 232 - 1,245 pg/mL 306 Vitamin D 25 Hydroxy 31.0 - 80.0 ng/mL 23.6 (L) [facility] 03-07-2024 Telephone encounter Note Patient notified of provider message and verbalized understanding. She do not want to pursue swallow study at this time. However, patient wanted to know if provider had looked at lab results completed on Sunday of this week and if so if everything was acceptable. Please advise [facility] 03-07-2024 Telephone encounter Note MRI was ordered by Dr Holden. She had an MRI of the cervical spine (the neck) completed at [facility] July 2023. This showed no acute fracture or other significant bony pathology. Minor bulging at the C5 and 6 level and small central disc protrusion at C6-7 mildly narrowing the central canal. No significant spinal stenosis or cord compression is present. See scanned documents. If she is sick with a sore throat should come in to be seen. Was not sick at her last visit. Did not talk about difficulty swallowing at her visit. Can complete a swallowing study if difficulty swallowing or choking on foods or aspirating. See if she would want to complete that. [facility] 03-07-2024 Telephone encounter Note Pt was seen 03/04 and states she is still having a throat problem. Glands swollen and hard to swallow. Pt. is having MRI of brain and wants it to include her neck and throat area. Please advise. [facility] Work Phone: 03-05-2024 Telephone encounter Note Call placed to patient and notified. Chyna Sotelo RN [facility] 03-05-2024 Miscellaneous Notes Call placed to patient and notified. Chyna Sotelo RN I sent all of her upcoming refills in. Patient calls upset that the correct medication was not sent to [facility]. Patient reports she needs loperamide [address] Elliott would have ordered that for diarrhea not cholestyramine. Pended for review. Notes say course of med complete and cholestyramine is effective for diarrhea. Patient reports that is not correct. She doesn't use the powder and can't return it to the pharmacy. Patient also asking for order for triptan back. Says it was discussed at appointment yesterday and was to be sent to [facility]. Reviewed notes with patient that provider recommended holding off on taking triptan. Patient reports that was not the conversation. Please review and advise, Chyna Sotelo RN documented in this encounter [facility] 03-05-2024 Telephone encounter Note I sent all of her upcoming refills in. [facility] 03-05-2024 Telephone encounter Note Patient calls upset that the correct medication was not sent to [facility]. Patient reports she needs loperamide [address] Elliott would have ordered that for diarrhea not cholestyramine. Pended for review. Notes say course of med complete and cholestyramine is effective for diarrhea. Patient reports that is not correct. She doesn't use the powder and can't return it to the pharmacy. Patient also asking for order for triptan back. Says it was discussed at appointment yesterday and was to be sent to [facility]. Reviewed notes with patient that provider recommended holding off on taking triptan. Patient reports that was not the conversation. Please review and advise, Chyna Sotelo RN [facility] 03-05-2024 Telephone encounter Note Called and spoke with pt. I let her know that she needs to be seen before they can order any injections, and there were no sooner appt available. Tonia Veras [facility] 03-05-2024 Miscellaneous Notes Called and spoke with pt. I let her know that she needs to be seen before they can order any injections, and there were no sooner appt available. Tonia Veras ----- Message from Tosin Palafox sent at 03/05/2024 10:45 AM EDT ----- Regarding: Spine & Pain / OPEN / Procedure / Injection Spine & Pain / OPEN / Procedure / Injection Patient: Saulo Geiger Date of : 1960 Primary Care Provider: Akin Elliott MD Patient has been identified by name and Date of (Y/N): y Patient: Saulo Geiger Date of : 1960 Provider for this encounter: Akin Elliott MD Reason for the call/escalation: Patient was referred to Dr. Chan, which she was scheduled with him, but she wanted to know if she could get an injection to help with her severe pain until she can be seen in April. She would like a call back to discuss this Was Patient Referred to [facility]/Seek Emergency Treatment (Y/N): n Did Patient Agree (Y/N): n/a Was An Attempt Made To Transfer The Patient To The Office (Y/N): n Were You Able To Reach Someone At The Office (Y/N): n/a If Yes - Patient Was Transferred To (Caregivers Name): n/a If No - Which [facility] Leadership Occupational Therapy Professor Did You Speak With Regarding This Patient: n/a Was an appointment scheduled (Y/N): n Reason patient was requesting visit (RFV/signs and symptoms/diagnosis) : injection Person calling if other than patient: self Return call to if other than patient: self Best contact number: [phone] Thank you, Tosin Vivienne March 05, 2024 10:45 AM documented in this encounter [facility] 03-05-2024 Telephone encounter Note ----- Message from Tosin Glassradha sent at 03/05/2024 10:45 AM EDT ----- Regarding: Spine & Pain / OPEN / Procedure / Injection Spine & Pain / OPEN / Procedure / Injection Patient: Saulo Geiger Date of : 1960 Primary Care Provider: Akin Elliott MD Patient has been identified by name and Date of (Y/N): y Patient: Saulo Geiger Date of : 1960 Provider for this encounter: Akin Elliott MD Reason for the call/escalation: Patient was referred to Dr. Chan, which she was scheduled with him, but she wanted to know if she could get an injection to help with her severe pain until she can be seen in April. She would like a call back to discuss this Was Patient Referred to [facility]/Seek Emergency Treatment (Y/N): n Did Patient Agree (Y/N): n/a Was An Attempt Made To Transfer The Patient To The Office (Y/N): n Were You Able To Reach Someone At The Office (Y/N): n/a If Yes - Patient Was Transferred To (Caregivers Name): n/a If No - Which [facility] Leadership Occupational Therapy Professor Did You Speak With Regarding This Patient: n/a Was an appointment scheduled (Y/N): n Reason patient was requesting visit (RFV/signs and symptoms/diagnosis) : injection Person calling if other than patient: self Return call to if other than patient: self Best contact number: [phone] Thank you, Tosin Palafox March 05, 2024 10:45 AM [facility] 03-04-2024 History of Present illness Narrative SUBJECTIVE: Hepatitis C Screening Never done HIV Screening Never done Cervical Cancer Screening due on 07/09/2017 Mammogram Screening due on 05/01/2019 Covid-19 Vaccine( season) Never done Shingrix Vaccine(2 of 2) due on 07/19/2023 HPI Saulo Geiger is a 63 year old female. 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 She notes chronic mid back pain. Notes no longer going to pain management doctor Vicente. States the injections and medications did not seem to help and it was expensive, $50 per visit. She notes that prior treatment with Flexeril seem to help. States that she is gone to physical therapy in the past and made her feel worse. Defers today. She notes followed by the counseling center Dr. Navarrete. States not currently taking depression medication due to adverse effects noted. States she will be seeing her psychiatrist next week to talk about new medication. She notes feeling very depressed. Sleeping 10 hours at night and then sleeping throughout the day. She notes chronic headache, migraine. Has a headache 2-3 times per week. States she takes an Advil 200 mg when this for starts. Hold off on taking triptan. Is effective when she takes it. Has not completed MRI of brain. Has not scheduled an appointment with neurology or headache specialist for follow-up. Notes she can not afford botox injections. otes wok changed, insurance changed s well, currently hs insurance. She notes post cholecystectomy diarrhea for which she is takes cholestyramine which is effective. She notes complaint of terrible sinuses. Does use fluticasone which does help. Notes runny nose and dry cough, not taking Xyzal. Review of Systems Constitutional: Negative. HENT: Positive for rhinorrhea. Gastrointestinal: Negative for diarrhea. Musculoskeletal: Positive for back pain. Negative for neck pain. Neurological: Positive for headaches. Psychiatric/Behavioral: Positive for dysphoric mood. Objective BP 124/83 Pulse 73 Resp 16 Wt 59.4 kg (131 lb) LMP 10/18/2006 BMI 21.14 kg/m Physical Exam Vitals and nursing note reviewed. Constitutional: Appearance: Normal appearance. HENT: Head: Normocephalic. Nose: Mucosal edema and rhinorrhea present. Eyes: Conjunctiva/sclera: Conjunctivae normal. Neck: Thyroid: No thyromegaly. Comments: neck TTP Cardiovascular: Rate and Rhythm: Normal rate and regular rhythm. Heart sounds: Normal heart sounds. Pulmonary: Effort: Pulmonary effort is normal. Breath sounds: Normal breath sounds. Abdominal: General: Bowel sounds are normal. Palpations: Abdomen is soft. Musculoskeletal: Cervical back: Decreased range of motion. Right lower leg: No edema. Left lower leg: No edema. Skin: General: Skin is warm and dry. Neurological: Mental Status: She is alert. Mental status is at baseline. ALLERGIES Allergen Reactions Bee Venom Protein (* Unknown Morphine Vomiting Relafen [Nabumetone] Diarrhea 2004 tried med Venom-Honey Bee Unknown Zolpidem Other: See Comments Medications promethazine (PHENERGAN) 25 mg tablet Take 0.5-1 tablets by mouth every 6 hours as needed. dilTIAZem CD (CARTIA XT) 180 mg 24 hr capsule Take 1 capsule by mouth once daily. naratriptan (AMERGE) 2.5 mg tablet Take 1 tablet by mouth as needed. 2.5 mg at onset of headache, may repeat in 4 hours if needed topiramate (TOPAMAX) 100 mg tablet TAKE 2 TABLETS TWICE A DAY IN THE MORNING AND AT BEDTIME pantoprazole DR (PROTONIX) 40 mg tablet Take 1 tablet by mouth twice daily before meals (0600/1600). Take on empty stomach, 1/2 hr before meal. cyclobenzaprine (FLEXERIL) 10 mg tablet Take 1 tablet by mouth at bedtime as needed for muscle spasm or pain. cholestyramine-aspartame (CHOLESTYRAMINE LIGHT) 4 gram powder Take 4 g by mouth three times a day with meals. fluticasone (FLONASE) 50 mcg/actuation nasal spray Use 2 Sprays in each nostril once daily. Rinse mouth after use. ibuprofen (MOTRIN) 800 mg tablet Take 1 tablet by mouth every 8 hours as needed for pain. Take with food. predniSONE (DELTASONE) 5 mg tablet Take two tablets for one week then one tablet for one week. For back pain PAST MEDICAL HISTORY Diagnosis Date Bee sting allergy 04/28/2008 Concussion with no loss of consciousness Displacement of intervertebral disc, site unspecified, without myelopathy 11/30/2006 [facility] claim Disturbance of skin sensation Esophageal reflux Headaches migraines Hypercholesteremia Mental disorder anxiety Multiple rib fractures 2012 Fell down stairs to basement-- 5th and 6th rib fractures and left great toe fracture Snoring Sprain of lumbosacral (joint) (ligament) Sprain of neck [facility] claim Sprain of thoracic region [facility] claim Tubular adenoma of colon 07/29/2015 Dr. Caban Variants of migraine, not elsewhere classified, without mention of intractable migraine without mention of status migrainosus Social History Tobacco Use Smoking status: Former Packs/day: .5 Types: Cigarettes Quit date: 07/21/2015 Years since quittin.6 Smokeless tobacco: Never Tobacco comments: was smoking less than one half pack; had cut back until able to quit 08/10/2009 Vaping Use Vaping Use: Never used Substance Use Topics Alcohol use: Yes Comment: rarely Drug use: No Latest Ref Rng 03/16/2023 05/28/2023 08/10/2023 WBC 3.70 - 11.00 k/uL 7.78 8.25 RBC 3.90 - 5.20 m/uL 4.34 4.35 Hemoglobin 11.5 - 15.5 g/dL 14.4 14.1 Hematocrit 36.0 - 46.0 % 44.7 43.1 MCV 80.0 - 100.0 fL 103.0 (H) 99.1 MCH 26.0 - 34.0 pg 33.2 32.4 MCHC 30.5 - 36.0 g/dL 32.2 32.7 RDW-CV 11.5 - 15.0 % 12.7 12.5 Platelet Count 150 - 400 k/uL 258 286 MPV 9.0 - 12.7 fL 10.6 9.9 Neut% % 73.0 Abs Neut (ANC) 1.45 - 7.50 k/uL 5.68 Lymph% % 21.1 Abs Lymph 1.00 - 4.00 k/uL 1.64 Bourbon% % 4.5 Abs Bourbon <0.87 k/uL 0.35 Eosin% % 0.6 Abs Eosin <0.46 k/uL 0.05 Baso% % 0.5 Abs Baso <0.11 k/uL 0.04 Immature Gran % % 0.3 IMMATURE GRANS (ABS) <0.10 k/uL <0.03 NRBC /100 WBC 0.0 Absolute nRBC <0.01 k/uL <0.01 <0.01 DTYPE Auto Protein, Total 6.3 - 8.0 g/dL 6.9 7.4 Albumin 3.9 - 4.9 g/dL 4.7 4.8 Calcium 8.5 - 10.2 mg/dL 9.2 10.1 9.5 Bilirubin, Total 0.2 - 1.3 mg/dL 0.3 0.3 Alkaline Phosphatase 34 - 123 U/L 90 97 AST 13 - 35 U/L 20 24 ALT 7 - 38 U/L 32 31 Glucose 74 - 99 mg/dL 95 97 104 (H) BUN 7 - 21 mg/dL 25 (H) 13 31 (H) Creatinine 0.58 - 0.96 mg/dL 1.15 (H) 1.09 (H) 1.24 (H) Sodium 136 - 144 mmol/L 141 142 142 Potassium 3.7 - 5.1 mmol/L 3.9 3.9 3.8 Chloride 97 - 105 mmol/L 110 (H) 110 (H) 110 (H) CO2 22 - 30 mmol/L 16 (L) 13 (L) 22 Anion Gap 9 - 18 mmol/L 15 19 (H) 10 eGFR >=60 mL/min/1.73m 55 (L) 58 (L) 50 (L) Total Cholesterol, Nonfasting <200 mg/dL 286 (H) Triglycerides, Nonfasting <150 mg/dL 223 (H) HDL Cholesterol, Nonfasting >39 mg/dL 50 LDL Cholesterol, Nonfasting <100 mg/dL 191 (H) Non HDL Cholesterol, Nonfasting <130 mg/dL 236 (H) VLDL Cholesterol, Nonfasting <30 mg/dL 45 (H) Total Chol/HDL Ratio, Nonfasting <5.10 mg/dL 5.72 (H) LDL/HDL Ratio, Nonfasting <2.54 mg/dL 3.82 (H) Shigella spp./Enteroinvasive E.coli DNA Not Detected Not detected Campylobacter jejuni/coli DNA Not Detected Not detected Shiga toxin-producing gene(s) Not Detected Not detected Salmonella spp. DNA Not Detected Not detected C. difficile PCR Negative for C. difficile toxin by PCR Negative for C. difficile toxin by PCR ASSESSMENT/PLAN: 1. Screening for cervical cancer - ICD9: V76.2, ICD10: Z12.4 - Encouraged monthly BSE - PAP TEST 4. Encounter for immunization - ICD9: V03.89, ICD10: Z23 - PFIZER-BIONTECH COVID-19 VACCINE (2022- SEASON) AGE 12+ YR - ZOSTER VACCINE, RECOMBINANT (SHINGRIX) 5. Other chronic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 Counter medications with you. Medications If you take insulin, diabetic medications or blood thinners such as Coumadin (warfarin), Plavix (clopidogrel), Ticlid (ticlopidine hydrochloride), Agrylin (anagrelide), Xarelto (Rivaroxaban), Pradaxa (Dabigatran), Eliquis (Apixaban), and Effient (Prasugrel). You MUST call the doctors who orders those medicines for instructions on altering the dosage before your colonoscopy. All other medications should be taken the day of the exam with a sip of water including ASPIRIN. Five (5) Days Before Your Colonoscopy Do NOT take medicines that stop diarrhea - such as Imodium, Kaopectate, or Pepto Bismol. Do NOT take fiber supplements - such as Metamucil, Citrucel, or Perdiem. Do NOT take products that contain iron - such as multi-vitamins (the label lists what is in the products). Three (3) Days Before Your Colonoscopy Do NOT eat high-fiber foods - such as popcorn, beans, seeds (flax, sunflower, quinoa), multigrain bread, nuts, salad/vegetables, or fresh and dried fruit. 08/2019 Bowel Preparation Instructions for: CLENPIQ One (1) Day Before Your Colonoscopy Only drink clear liquids the ENTIRE DAY before your colonoscopy. Do NOT eat any solid foods. Drink at least 8 ounces of clear liquids every hour after waking up. The clear liquids you can drink include: Clear Liquid (NO RED LIQUIDS) DO NOT DRINK Gatorade, Pedialyte or Powerade Clear broth or bouillon Coffee or tea (no milk or non-dairy creamer) Carbonated and non-carbonated soft drinks Tyler-Aid or other fruit flavored drinks Strained fruit juices (no pulp) Jell-O, popsicles, hard candy Water Alcohol Milk or non-dairy creamers Noodles or vegetables in soup Juice with pulp Liquid you cannot see through Do not use tobacco/vaping products The bowel preparation solution will be consumed in two parts. Part 1 6 PM - Evening before your colonoscopy Drink one bottle of CLENPIQ. Over the next 5 hours, drink at least 5 cups (8 oz. Each) of clear liquid, at your own pace. You may continue to drink clear liquids until midnight. Part 2 4 1/2 hours before your colonoscopy Drink the bottle of CLENPIQ, then drink one cup (8 oz. Each) of clear liquid, every 15 minutes for at least 4 cups. You may continue to drink clear liquids up to (three) 3 hours before your exam. 2 08/2019 documented in this encounter [facility] 06-18-2023 History of Present illness Narrative HISTORY AND PHYSICAL Saulo Geiger 1960 REFERRING PHYSICIAN: Carlee Tyler APRN.MANAGER [employer] COMPLAINT: Consult (Diarrhea, colonoscopy consult [facility] ER visit 05/25/23 CT scan done requested images to be pushed ) HPI: The patient is a 62 year old female referred for endoscopy. Saulo notes diarrhea. She has noted this since gallbladder surgery done on 02/26/2017. She notes several loose, watery bowel movements per day. She had been trialed on cholestyramine shortly after her presentation, but she states that she cannot tolerate it. She had previous colonoscopy by Dr. Field in 2019 with MAC anesthesia at [facility] for microscopic colitis which was negative. She notes no inflammatory bowel disease in the family, such as US or Crohn's. She denies noting blood in stools. She had a colonoscopy in 2014 which revealed pathology of a 30mm - tubular adenoma of the rectum She recently underwent evaluation in ED at [facility] 05/25/2023 for LLQ abdominal pain and diarrhea. CT scan revealed no acute surgical pathology. PAST MEDICAL HISTORY Diagnosis Date Bee sting allergy 04/28/2008 Concussion with no loss of consciousness Displacement of intervertebral disc, site unspecified, without myelopathy 11/30/2006 [facility] claim Disturbance of skin sensation Esophageal reflux Headaches migraines Hypercholesteremia Mental disorder anxiety Multiple rib fractures 2012 Fell down stairs to basement-- 5th and 6th rib fractures and left great toe fracture Snoring Sprain of lumbosacral (joint) (ligament) Sprain of neck [facility] claim Sprain of thoracic region [facility] claim Tubular adenoma of colon 07/29/2015 Dr. Caban Variants of migraine, not elsewhere classified, without mention of intractable migraine without mention of status migrainosus PAST SURGICAL HISTORY Procedure Laterality Date CHOLECYSTECTOMY 02/26/2017 Cholecystectomy; [facility] with Dr. Alejo COLONOSCOPY FLX DX W/COLLJ SPEC WHEN PFRMD 07/29/2015 Colonoscopy COLONOSCOPY SCREENING 2019 ESOPHAGOGASTRODUODENOSCOPY TRANSORAL DIAGNOSTIC 07/29/2015 EGD ESOPHAGOGASTRODUODENOSCOPY TRANSORAL DIAGNOSTIC 04/05/2017 EGD PAST SURGICAL HISTORY OF bilat feet - reconstruction Current Outpatient Medications Medication Sig benzonatate (TESSALON PERLES) 100 mg capsule Take 1-2 capsules by mouth three times a day as needed for cough. levocetirizine (XYZAL) 5 mg tablet Take 1 tablet by mouth once daily. ondansetron orally disintegrating (ZOFRAN ODT) 4 mg disintegrating tablet EVERY 8 HOURS NEEDED loperamide (ANTI-DIARRHEAL) 2 mg cap(s) Take 1 capsule by mouth four times daily as needed for diarrhea. (Patient taking differently: Take 2 mg by mouth two times a day.) dilTIAZem CD (CARTIA XT) 180 mg 24 hr capsule Take 1 capsule by mouth once daily. naratriptan (AMERGE) 2.5 mg tablet Take 1 tablet by mouth as needed. 2.5 mg at onset of headache, may repeat in 4 hours if needed rosuvastatin (CRESTOR) 5 mg tablet Take 1 tablet by mouth once daily. For Cholesterol topiramate (TOPAMAX) 100 mg tablet TAKE 2 TABLETS TWICE A DAY IN THE MORNING AND AT BEDTIME pantoprazole DR (PROTONIX) 40 mg tablet Take 1 tablet by mouth twice daily before meals (0600/1600). Take on empty stomach, 1/2 hr before meal. promethazine (PHENERGAN) 25 mg tablet Take 0.5-1 tablets by mouth every 6 hours as needed. cyclobenzaprine (FLEXERIL) 10 mg tablet Take 1 tablet by mouth twice daily as needed for muscle spasm or pain (may make drowsy, avoid driving and other activities until you know how it affects you). diclofenac, EC, (VOLTAREN) 50 mg EC tablet Take 1 tablet by mouth twice daily as needed. ondansetron (ZOFRAN) 4 mg tablet Take 1 tablet by mouth every 8 hours as needed for nausea/vomiting (if not controlled with phenergan). ZINC ORAL Take by mouth. omega-3 fatty acids (FISH OIL CONCENTRATE ORAL) Take by mouth. cholecalciferol, vitamin D3, (VITAMIN D3 ORAL) Take 1 capsule by mouth once daily. DULoxetine (CYMBALTA) 60 mg capsule Take 1 capsule by mouth twice daily. (Dr. Herrera) ALPRAZolam (XANAX) 0.5 mg tablet Take 1 tablet by mouth twice daily as needed. (Dr. Herrera) MV with Mqs-Hjienuev-Xosdud (CENTRUM SILVER) 0.4-300-250 mg-mcg-mcg tab Take 1 tablet by mouth once daily. sodium picosulfate-magnesium oxide-citric acid (CLENPIQ) 10 mg-3.5 gram- 12 gram/175 mL oral solution Refer to instructions given by your provider dicyclomine (BENTYL) 10 mg capsule THREE TIMES A DAY (Patient not taking: Reported on 06/18/2023) HYDROcodone-acetaminophen (NORCO) 5-325 mg per tablet Take 1 tablet by mouth every 12 (twelve) hours. (Patient not taking: Reported on 06/18/2023) No current facility-administered medications for this visit. ALLERGIES: Bee Stings [Other], Morphine, Relafen [Nabumetone], Venom-Honey Bee, and Zolpidem PERSONAL HISTORY: Social History Tobacco Use Smoking status: Former Packs/day: .5 Types: Cigarettes Quit date: 07/21/2015 Years since quittin.9 Smokeless tobacco: Never Tobacco comments: was smoking less than one half pack; had cut back until able to quit 08/10/2009 Vaping Use Vaping Use: Never used Substance Use Topics Alcohol use: Yes Comment: rarely Drug use: No FAMILY HISTORY Problem Relation Age of Onset Breast Cancer Mother Diabetes Mother Heart Mother Cancer Father liver ca Diabetes Sister The review of systems data was entered by the nurse and reviewed by pa Nursing Notes: Malika Allen LPN 06/18/2023 2:08 PM Signed REVIEW OF SYSTEMS: General: The patient denies fatigue, notes weight loss, denies weight gain, denies feeling hot, and denies feelings of cold. Eyes: The patient denies glaucoma, denies eye injury/surgery, wears glasses or contacts. Ear/Nose/Throat: The patient notes allergies, denies hayfever, denies ear infections, and denies bloody noses. Cardiovascular: The patient denies chest pain, denies heart disease, denies high blood pressure,denies cardiac stent, denies prior heart attack, denies irregular heart beat, denies high cholesterol, denies poor circulation, denies heart failure, other cardiac issues, denies claudication, denies cold feet, denies peripheral arterial stent. Respiratory: The patient denies tuberculosis, denies pneumonia, denies frequent cough, denies pulmonary embolism, denies shortness of breath, and denies coughing up blood. Gastrointestinal: The patient denies difficulty swallowing, denies acid reflux, denies ulcers, denies vomiting, denies jaundice/hepatitis, denies gallbladder problems, denies black or tarry stools, denies hemorrhoids, denies bleeding from rectum, denies diverticulitis, denies constipation, notes diarrhea, denies loss of stool control, and denies hernias. Kidney/Bladder: The patient denies kidney stones, denies urine infections, and denies bloody urine. Skin: The patient denies a history of skin cancer, denies bleeding/changing moles, and denies a history of skin rash. Neurologic: The patient denies a history of epilepsy/convulsions, notes headaches, denies head/spinal injuries, and denies stroke/TIA. Psychiatric: The patient denies psychiatric medications, denies depression, and denies voices, denies substance abuse. Endocrine: The patient denies thyroid disorders, denies diabetes, and denies hormonal problems. Hematologic: The patient denies a history of bruising, denies bleeding, and denies anemia, denies blood clots. Infections: The patient denies a history of measles and mumps, denies rheumatic fever, and denies sexually transmitted diseases. Musculoskeletal: The patient notes back pain/injury, denies back problems, denies sciatica, denies knee/foot trouble, denies arthritis, or denies gout. When was patient's last Mammogram screening? 2018 Last Colonoscopy: 2019 Malika Allen LPN PHYSICAL EXAMINATION: General: The patient is 62 year old female, well nourished, well hydrated in no acute distress. The patient is oriented to time, place, and person. VITALS: Blood pressure 98/60, pulse 89, temperature 36.8 C (98.2 F), height 167.6 cm (5' 6), weight 61.7 kg (136 lb), last menstrual period 10/18/2006, SpO2 99 %. Body mass index is 21.95 kg/m . Head: Normal cephalic, atraumatic Eyes: pupils are equally round, sclera are clear/anicteric Neck is supple with no tracheal deviation Respiratory: Normal respiratory excursion and pattern. Abdominal exam: benign Extremities: no clubbing, cyanosis or edema. Neuro: non focal Psych: normal mood Assessment IMPRESSION: diarrhea, history of colon polyps PLAN: I have discussed the above with the patient. I have offered colonoscopy, possible biopsies I have explained the procedure to the patient. I have counseled the patient as to the risks of the procedure, including but not limited to: infection, bleeding, injury to any intrabdominal organs such as liver/spleen, perforation of the GI tract, inability to complete the procedure, complications of anesthesia, etc. - the patient understands. I have explained to the patient the difference between IV conscious sedation and MAC anesthesia - and I have offered either, according to the patient's wishes. I have explained that with IV conscious sedation there is no anesthesia provider available and therefore there is a limitation of the amount of IV medications that can be given and that the patient may wake up in the middle of the procedure and/or experience pain/discomfort during the procedure. Further discussion was done and the patient was given the opportunity to ask questions and all questions were answered. The patient chooses IV conscious sedation Patient was counseled that if there are changes in his/her medical condition, to let the office know if surgery should proceed. If there are changes in patient's medical condition from time of this encounter to the day of the procedure that preclude anesthesia, patient may have procedure cancelled for patient's safety. The patient wishes to proceed. I have answered all questions to the patient s satisfaction and the patient has no further questions. My clinic staff has educated the patient as to the colon cleansing regimen and I have prescribed Golytely for the colon cleansing solution. The patient will be scheduled for the procedure at [facility]. Diagnoses: (R19.7) Diarrhea, unspecified type (Z86.010) History of colonic polyps I have confirmed and edited as necessary, the PFSH and ROS obtained by others. Medical Decision Making: Problems: Low: Stable chronic illness Risk: Low: Low risk from testing/treatment Medical Decision Making Level: 3 - Low Harriett Alejo MD documented in this encounter [facility] 06-18-2023 Nurse Note REVIEW OF SYSTEMS: General: The patient denies fatigue, notes weight loss, denies weight gain, denies feeling hot, and denies feelings of cold. Eyes: The patient denies glaucoma, denies eye injury/surgery, wears glasses or contacts. Ear/Nose/Throat: The patient notes allergies, denies hayfever, denies ear infections, and denies bloody noses. Cardiovascular: The patient denies chest pain, denies heart disease, denies high blood pressure,denies cardiac stent, denies prior heart attack, denies irregular heart beat, denies high cholesterol, denies poor circulation, denies heart failure, other cardiac issues, denies claudication, denies cold feet, denies peripheral arterial stent. Respiratory: The patient denies tuberculosis, denies pneumonia, denies frequent cough, denies pulmonary embolism, denies shortness of breath, and denies coughing up blood. Gastrointestinal: The patient denies difficulty swallowing, denies acid reflux, denies ulcers, denies vomiting, denies jaundice/hepatitis, denies gallbladder problems, denies black or tarry stools, denies hemorrhoids, denies bleeding from rectum, denies diverticulitis, denies constipation, notes diarrhea, denies loss of stool control, and denies hernias. Kidney/Bladder: The patient denies kidney stones, denies urine infections, and denies bloody urine. Skin: The patient denies a history of skin cancer, denies bleeding/changing moles, and denies a history of skin rash. Neurologic: The patient denies a history of epilepsy/convulsions, notes headaches, denies head/spinal injuries, and denies stroke/TIA. Psychiatric: The patient denies psychiatric medications, denies depression, and denies voices, denies substance abuse. Endocrine: The patient denies thyroid disorders, denies diabetes, and denies hormonal problems. Hematologic: The patient denies a history of bruising, denies bleeding, and denies anemia, denies blood clots. Infections: The patient denies a history of measles and mumps, denies rheumatic fever, and denies sexually transmitted diseases. Musculoskeletal: The patient notes back pain/injury, denies back problems, denies sciatica, denies knee/foot trouble, denies arthritis, or denies gout. When was patient's last Mammogram screening? 2018 Last Colonoscopy: 2019 Malika Allen LPN documented in this encounter [facility] 05-25-2023 Discharge summary Note Date/Time May 25, 2023 9:01pm [facility] Medical Records Department [address] [place] [address] Emergency Department Summary 05/25/23 MR#: [id number] Acct: [id number] Name: SAULO GEIGER I Rep #:[id number] : 1960 62 From: Blaise Diaz DO PCP: Dr. Akin Elliott MD Status:RE G ER Location: ED HPI HPI - GI History of Present Illness Chief Complaint: Diarrhea Narrative Narrative: 62-year-old female presenting with liquidy stool for the last 2 weeks. Denies any fevers or chills. No black or bloody stools. No recent antibiotics. She does have nausea without vomiting. States she developed a migraine which has had in the past. Having light sensitivity and sound sensitivity. Denies urinary or vaginal complaints. PFSH PFSH Home Medications alprazolam 0.5 mg tablet 0.5 mg PO BID 05/15/14 [History Last Taken 08/28/18 06:00] diltiazem HCl 180 mg capsule,extended release 24 hr 180 mg PO DAILY headaches 05/15/14 [History Last Taken 08/28/18 06:00] duloxetine 60 mg capsule,delayed release 60 mg PO BID 05/15/14 [History Last Taken 07/25/18] gabapentin 300 mg capsule 900 mg PO BIDCM 05/15/14 [History Last Taken 07/25/18] topiramate 200 mg tablet 400 mg PO BID 05/15/14 [History Last Taken 08/28/18 06:00] colestipol 1 gram tablet (Colestid) 3 tab PO DAILY 07/25/18 [History Last Taken 07/25/18] sumatriptan succinate 100 mg tablet (Imitrex) 100 mg PO X1 PRN Headache 07/25/18[History Last Taken 07/24/18] Cholecalciferol (Vitamin D3) [Vitamin D3] 2,500 unit PO DAILY 08/27/18 [History Last Taken Unknown] multivitamin,xw-pdhf-jsvamhhv 27 mg-0.4 mg tablet (Therems-M) 1 tab PO DAILY 08/27/18 [History Last Taken Unknown] dicyclomine 10 mg capsule 20 mg (2 x 10 mg) PO .Q4-6H PRN abdominal pain #20 caps 05/09/19 [Rx Last Taken Unknown] sucralfate 1 gram tablet 1 gm PO 4X/DAY #28 tabs 05/09/19 [Rx Last Taken Unknown] dicyclomine 10 mg capsule 10 mg PO TID #14 caps 05/25/23 [Rx Last Taken Unknown] ondansetron 4 mg disintegrating tablet 4 mg PO Q8H PRN PRN Nausea #14 tabs 05/25/23 [Rx Last Taken Unknown] Allergy/AdvReac Type Severity Reaction Status Date / Time venom-honey bee Allergy Unknown Verified 05/25/23 16:56 [bee venom (honey bee)] morphine AdvReac Nausea Verified 05/25/23 16:56 zolpidem [From Ambien] AdvReac Other Verified 05/25/23 16:56 Social History Smoking Status: Current every day smoker tobacco type: cigarettes EXAM Physical Exam Const Vital Signs: 05/25/23 16:56 Temperature 98.5 F Temperature Source Temporal Pulse Rate 89 Respiratory Rate 16 Blood Pressure 134/90 H Blood Pressure Mean 104 Pulse Ox 100 Oxygen Delivery Method Room Air Positive well nourished General Appearance ED: NAD; Negative for pallor HEENT Reports moist mucous membranes normocephalic and atraumatic Eyes PERRL and EOMs intact bilaterally Neck no lymphadenopathy Resp normal respiratory effort Cardio regular rate and regular rhythm GI Palpation: tender LLQ Back/Spine no CVA tenderness Neuro CN's II-XII intact bilaterally and moves all extremities Sensorium / Orientation: alert Motor Exam: strength 5/5 throughout Psych mental status grossly normal Skin no wounds General Skin Exam: Negative for jaundice or pallor MDM MDM MDM Narrative Medical decision making narrative: 62-year-old female presenting with diarrhea and left lower quadrant abdominal pain for 2 weeks. Patient also has a migraine headache today. She was treated with Reglan, Benadryl. She is given IV fluids. CBC was obtained to assess white blood cell count, hemoglobin, platelets. CMP to assess liver function, renal function, electrolytes. To assess for pancreatitis. Urinalysis to assessfor UTI. CBC and BMP relatively unremarkable. Creatinine slightly elevated at 1.32 her baseline. Potassium slight low at 3.3. Also is negative for infection. LFTs are unremarkable. Lipase 196 and minimally elevated. This is not consistent with acute pancreatitis. CT of the abdomen pelvis with IV contrast was obtained which shows no acute process. Patient counseled on all findings. Patient did take her home sumatriptan while in the ER for headache. She is also given a dose of Toradol. Patient will be given a prescription for Zofran and for Bentyl. Return precautions were discussed. Impression: 1. Abdominal pain 2. Nausea 3. Migraine 4. Diarrhea Lab Data Labs: Laboratory Results - last 24 hr 05/25/23 05/25/23 17:04 17:13 WBC 5.3 RBC 4.32 Hgb 14.1 Hct 43.7 MCV 101.2 H MCH 32.6 H MCHC 32.3 RDW Std Deviation 46.6 H RDW Coeff of Bekah 12.4 Plt Count 239 MPV 9.7 Immature Gran % (Auto) 0.200 Neut % (Auto) 70.1 H Lymph % (Auto) 19.2 [place] % (Auto) 8.4 Eos % (Auto) 1.5 Baso % (Auto) 0.6 Absolute Neuts (auto) 3.7 Absolute Lymphs (auto) 1.01 Nucleated RBC % 0 Sodium 141 Potassium 3.3 L Chloride 115 H Carbon Dioxide 20.0 L Anion Gap 6 BUN 21 H Creatinine 1.32 H Estim Creat Clear Calc 42.43 Est GFR (MDRD) Af Amer 53 L Est GFR (MDRD) Non-Af 44 L BUN/Creatinine Ratio 15.9 Glucose 145 H Calcium 8.9 Total Bilirubin 0.20 AST 12 L ALT 55 Alkaline Phosphatase 115 Total Protein 7.0 Albumin 3.8 Globulin 3.2 Albumin/Globulin Ratio 1.2 Lipase 196 H Urine Color Yellow Urine Clarity Clear Urine pH 6.0 Ur Specific [place] 1.010 Urine Protein 30 H Urine Glucose (UA) Normal Urine Ketones 5 H Urine Occult Blood Negative Urine Nitrite Negative Urine Bilirubin Negative Urine Urobilinogen Normal Ur Leukocyte Esterase 500 H Urine RBC 0 SEEN Urine WBC 5-10 SEEN Ur Squamous Epith Cells 0 SEEN Urine Bacteria RARE Urine Mucus 0 SEEN Radiography Diagnostic Testing: Clinical Impression(s) from Imaging Studies Abdomen/Pelvis CT 05/25/23 19:06 IMPRESSION: No acute findings in the abdomen or pelvis. Electronically Signed: Wil iHnes MD at 19:40 EDT , Discharge Plan Triage Chief Complaint: Diarrhea ED Provider: Blaise Diaz Dx/Rx/DC Orders Clinical Impression: Migraine headache Instructions: ED, Migraine (Classical), ED Vomiting and Diarrhea ... Prescriptions: New ondansetron 4 mg tablet,disintegrating 4 mg PO Q8H PRN PRN (Reason: Nausea) Qty: 14 0RF dicyclomine 10 mg capsule 10 mg PO TID Qty: 14 0RF No Action diltiazem HCl 180 MG capsule 180 mg PO DAILY alprazolam 0.5 MG tablet 0.5 mg PO BID gabapentin 300 MG capsule 900 mg PO BIDCM topiramate 200 MG tablet 400 mg PO BID duloxetine 60 MG capsule 60 mg PO BID sumatriptan succinate [Imitrex] 100 MG tablet 100 mg PO X1 PRN (Reason: Headache) colestipol [Colestid] 1 GM tablet 3 tab PO DAILY Therems-M 1 TABLET tablet 1 tab PO DAILY Cholecalciferol (Vitamin D3) [Vitamin D3] 5,000 UNIT capsule 2,500 unit PO DAILY sucralfate 1 GM tablet 1 gm PO 4X/DAY Qty: 28 0RF dicyclomine 10 MG capsule 20 mg PO .Q4-6H PRN (Reason: abdominal pain) Qty: 20 0RF Primary Care Provider: Akin Elliott Referrals: Akin Elliott MD [Primary Care Provider] - Disposition Disposition: Home, Self Care What to do if you have Problems For any increased pain, shortness of breath, bleeding, nausea or vomiting, chestpain, or any unexpected problems, contact your Primary Care Provider. Call [facility] ([phone]) or report to the closest Emergency Room. Call 911 if necessary. 05/25/[id number] <Electronically signed by Blaise Diaz DO> Cosigner Signature (if applicable): CC: Dr. Akin Elliott MD ~ Signed [facility] Work Phone: [phone] Miscellaneous Notes* Telephone Encounter - Misa Nicole RN - 03/28/2023 6:40 PM EDT Pt called and is notified of providers message and instructions. Pt voices understanding. She states she took the medication last evening and it didn't bother her. She states she doesn't think she needs an appointment at this time, but if they start bothering her again she will make an appointment. Misa Nicole RN * Telephone Encounter - Carlee Tyler APRN.CNS - 03/27/2023 5:03 PM EDT If hands feel no different off of the medication then not sure that it was related to the medication. If she would like to come in for a visit to check her hands we can schedule that. Would recommend resuming Crestor at previous dose for now. Take in the evening. Can take with food. * Telephone Encounter - Alida Ordonez LPN - 03/27/2023 4:49 PM EDT Patient states that hands are about the same. Could try again. It was suggested maybe taking it at night? Please review and advise. When calling patient back, patient has requested to be called back after 10:00am * Telephone Encounter - Carlee Tyler APRN.CNS - 03/27/2023 4:21 PM EDT Did her hands feel better when not taking crestor? or about the same? * Telephone Encounter - Jo Sparks LPN - 03/27/2023 4:07 PM EDT Pt notified with results below. Pt has not been taking the Crestor x 1 month because it was making her hands feel weird. Please advise if you want her to start back on the dose she was on. If she is to start back on it, what time of day should she take this (evening)? Also does she take with food. Jo Sparks LPN . * Telephone Encounter - Alida Ordonez LPN - 03/27/2023 1:19 PM EDT No answer. Left message for patient to call office and ask to speak to a nurse regarding lab results * Telephone Encounter - Alida Ordonez LPN - 03/27/2023 1:16 PM EDT ----- Message from Carlee Tyler APRN.MANAGER WIND sent at 03/26/2023 10:07 AM EDT ----- BUN and creatinine elevated but improved. Would recommend increased dose of statin if willing and tolerating current dose well. Check to see if willing to increase dose. The 10-year ASCVD risk score (Antoni ALONSO, et al., 2019) is: 4.2% Values used to calculate the score: Age: 62 years Sex: Female Is Non- : No Diabetic: No Tobacco smoker: No Systolic Blood Pressure: 122 mmHg Is BP treated: No HDL Cholesterol: 50 mg/dL Total Cholesterol: 286 mg/dL documented in this encounterParkview Health07-11-2023 Miscellaneous Notes* Telephone Encounter - Akin Elliott MD - 03/20/2023 1:46 AM EDT Okayed * Telephone Encounter - Nilsa Lara RN - 03/19/2023 1:59 PM EDT Last Office Visit: 03/16/2023 Future Office Visit: 08/31/2023 Requested Prescriptions Pending Prescriptions Disp Refills loperamide (ANTI-DIARRHEAL) 2 mg cap(s) 120 capsule 1 Sig: Take 1 capsule by mouth four times daily as needed for diarrhea. Date of Last Labs: 03/16/2023 Pain Management referral, office notes, and demographics faxed to Dr. Zhang's office per patient request. documented in this encounterParkview Health07-07-2023 Instructions* Patient Instructions* Carlee Tyler APRN.CNS - 03/16/2023 11:24 AM EDT Try flexeril and diclofenac for neck and back pain. Flexeril may make you drowsy, don't take it if you need to be alert documented in this encounterParkview Health07-07-2023 History of Present illness Narrative* Carlee Tyler APRN.CNS - 03/16/2023 11:00 AM EDT SUBJECTIVE: COVID-19 VACCINE(1) Never done SHINGRIX VACCINE(1 of 2) Never done PAP TESTING due on 07/09/2017 HPV TESTING due on 07/09/2017 MAMMOGRAM due on 05/01/2019 DTAP,TDAP,TD(2 - Td or Tdap) due on 05/03/2022 DEPRESSION ASSESSMENT Never done HPI Saulo Geiger is a 62 year old female. 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 Continued on rosuvastatin for hypercholesterolemia. Today reports she would like to see a pain management provider, Dr Zhang at [facility]. She notes chronic back pain and indicates that current medications are not giving her much relief of pain. She notes she had spinal injections in the past did not help much. She reports she cannot goto physical therapy, states PCP advised her of that. Continues with diltiazem Amerge and Topamax for migraine variant. Has chronic headaches, medications do help. Has headache today, defers toradol in office. She reported decreased coverage of medications for [facility] at her last visit and had run out of some medications. Followed at the counseling center for depression, , due for appointment Hyperlipidemia. Ms. Geiger reports doing well on current therapy Her most recent lipid panels are: Cholesterol, Total (mg/dL) Date Value 12/10/2020 246 08/10/2018 234 Total Cholesterol, Nonfasting (mg/dL) Date Value 03/24/2022 330 HDL Cholesterol (mg/dL) Date Value 12/10/2020 52 08/10/2018 45 HDL Cholesterol, Nonfasting (mg/dL) Date Value 03/24/2022 63 LDL Cholesterol (mg/dL) Date Value 12/10/2020 132 08/10/2018 143 LDL Cholesterol, Nonfasting (mg/dL) Date Value 03/24/2022 235 Triglyceride (mg/dL) Date Value 12/10/2020 312 08/10/2018 228 Triglycerides, Nonfasting (mg/dL) Date Value 03/24/2022 161 Health maintenance: Declines vaccines. Reports no recent COMPENSATION SUPERVISOR visit, due for cervical cancer screening. Review of Systems Constitutional: Negative. Musculoskeletal: Positive for back pain, neck pain and neck stiffness. Neurological: Positive for headaches. Psychiatric/Behavioral: Positive for dysphoric mood. Objective BP 122/72 Pulse 80 Resp 16 Wt 64 kg (141 lb) LMP 10/18/2006 BMI 22.76 kg/m Physical Exam Vitals and nursing note reviewed. Constitutional: Appearance: Normal appearance. HENT: Head: Normocephalic. Eyes: Conjunctiva/sclera: Conjunctivae normal. Neck: Thyroid: No thyromegaly. Comments: neck TTP Cardiovascular: Rate and Rhythm: Normal rate and regular rhythm. Heart sounds: Normal heart sounds. Pulmonary: Effort: Pulmonary effort is normal. Breath sounds: Normal breath sounds. Abdominal: General: Bowel sounds are normal. Palpations: Abdomen is soft. Musculoskeletal: Cervical back: Decreased range of motion. Right lower leg: No edema. Left lower leg: No edema. Skin: General: Skin is warm and dry. Neurological: Mental Status: She is alert. Mental status is at baseline. ALLERGIES Allergen Reactions Bee Stings [Other] Morphine Vomiting Relafen [Nabumetone] Diarrhea 2004 tried med Medications dilTIAZem CD (CARTIA XT) 180 mg 24 hr capsule Take 1 capsule by mouth once daily. naratriptan (AMERGE) 2.5 mg tablet Take 1 tablet by mouth as needed. 2.5 mg at onset of headache, may repeat in 4 hours if needed rosuvastatin (CRESTOR) 5 mg tablet Take 1 tablet by mouth once daily. For Cholesterol topiramate (TOPAMAX) 100 mg tablet TAKE 2 TABLETS TWICE A DAY IN THE MORNING AND AT BEDTIME pantoprazole DR (PROTONIX) 40 mg tablet Take 1 tablet by mouth twice daily before meals (0600/1600). Take on empty stomach, 1/2 hr before meal. promethazine (PHENERGAN) 25 mg tablet Take 0.5-1 tablets by mouth every 6 hours as needed. ondansetron (ZOFRAN) 4 mg tablet Take 1 tablet by mouth every 8 hours as needed for nausea/vomiting(if not controlled with phenergan). ZINC ORAL Take by mouth. omega-3 fatty acids (FISH OIL CONCENTRATE ORAL) Take by mouth. DULoxetine (CYMBALTA) 60 mg capsule Take 1 capsule by mouth twice daily. (Dr. Herrera) ALPRAZolam (XANAX) 0.5 mg tablet Take 1 tablet by mouth twice daily as needed. (Dr. Herrera) MV with Uji-Qtgxemix-Kogxyl (CENTRUM SILVER) 0.4-300-250 mg-mcg-mcg tab Take 1 tablet by mouth oncedaily. loperamide (ANTI-DIARRHEAL) 2 mg cap(s) Take 1 capsule by mouth four times daily as needed for diarrhea. (Patient not taking: Reported on 03/16/2023) levocetirizine (XYZAL) 5 mg tablet Take 1 tablet by mouth once daily. (Patient not taking: Reportedon 03/16/2023) cyclobenzaprine (FLEXERIL) 10 mg tablet Take 1 tablet by mouth twice daily as needed for muscle spasm or pain (may make drowsy, avoid driving and other activities until you know how it affects you). (Patient not taking: Reported on 03/16/2023) cholecalciferol, vitamin D3, (VITAMIN D3 ORAL) Take 1 capsule by mouth once daily. (Patient not taking: Reported on 03/16/2023) PAST MEDICAL HISTORY Diagnosis Date Bee sting allergy 04/28/2008 Concussion with no loss of consciousness Displacement of intervertebral disc, site unspecified, without myelopathy 11/30/2006 [facility] claim Disturbance of skin sensation Esophageal reflux Hypercholesteremia Mental disorder anxiety Multiple rib fractures 2012 Fell down stairs to basement-- 5th and 6th rib fractures and left great toe fracture Snoring Sprain of lumbosacral (joint) (ligament) Sprain of neck [facility] claim Sprain of thoracic region [facility] claim Tubular adenoma of colon 07/29/15 Dr. Caban Variants of migraine, not elsewhere classified, without mention of intractable migraine without mention of status migrainosus Social History Tobacco Use Smoking status: Former Packs/day: 0.50 Types: Cigarettes Quit date: 07/21/2015 Years since quittin.6 Smokeless tobacco: Never Tobacco comments: was smoking less than one half pack; had cut back until able to quit 08/10/2009 Substance Use Topics Alcohol use: Yes Comment: rarely Drug use: No Component Latest Ref Rng & Units 12/10/2020 03/24/2022 WBC 3.70 - 11.00 k/uL 5.90 5.67 RBC 3.90 - 5.20 m/uL 4.79 4.69 Hemoglobin 11.5 - 15.5 g/dL 15.5 15.0 Hematocrit 36.0 - 46.0 % 49.9 (H) 49.1 (H) MCV 80.0 - 100.0 fL 104.2 (H) 104.7 (H) MCH 26.0 - 34.0 pg 32.4 32.0 MCHC 30.5 - 36.0 g/dL 31.1 30.5 RDW-CV 11.5 - 15.0 % 12.5 13.2 Platelet Count 150 - 400 k/uL 284 283 MPV 9.0 - 12.7 fL 10.5 10.6 Neut% % 59.9 Abs Neut (ANC) 1.45 - 7.50 k/uL 3.40 Lymph% % 29.8 Abs Lymph 1.00 - 4.00 k/uL 1.69 Bourbon% % 7.8 Abs Bourbon <0.87 k/uL 0.44 Eosin% % 1.6 Abs Eosin <0.46 k/uL 0.09 Baso% % 0.7 Abs Baso <0.11 k/uL 0.04 Immature Gran % % 0.2 IMMATURE GRANS (ABS) <0.10 k/uL <0.03 NRBC /100 WBC 0.0 Absolute nRBC <0.01 k/uL <0.01 <0.01 DTYPE Auto Protein, Total 6.3 - 8.0 g/dL 7.0 7.2 Albumin 3.9 - 4.9 g/dL 4.7 5.0 (H) Calcium 8.5 - 10.2 mg/dL 9.3 9.9 Bilirubin, Total 0.2 - 1.3 mg/dL 0.4 0.3 Alkaline Phosphatase 34 - 123 U/L 122 128 (H) AST 13 - 35 U/L 19 24 Glucose 74 - 99 mg/dL 100 (H) 113 (H) BUN 7 - 21 mg/dL 16 22 (H) Creatinine 0.58 - 0.96 mg/dL 1.18 (H) 1.19 (H) Sodium 136 - 144 mmol/L 144 142 Potassium 3.7 - 5.1 mmol/L 4.0 4.1 Chloride 97 - 105 mmol/L 112 (H) 107 (H) CO2 22 - 30 mmol/L 22 21 (L) Anion Gap 9 - 18 mmol/L 10 14 ALT 7 - 38 U/L 21 26 eGFR- 57 eGFR-All Other Races . 47 eGFR >=60 mL/min/1.73m 53 (L) Cholesterol, Total <200 mg/dL 246 (H) Triglyceride <150 mg/dL 312 (H) HDL Cholesterol >39 mg/dL 52 LDL Cholesterol <100 mg/dL 132 (H) Non HDL Cholesterol <130 mg/dL 194 (H) Fasting Time hrs 12 VLDL Cholesterol <30 mg/dL 62 (H) TC:HDL Ratio <5.10 4.73 LDL:HDL Ratio <2.54 2.54 (H) Total Cholesterol, Nonfasting <200 mg/dL 330 (H) Triglycerides, Nonfasting <150 mg/dL 161 (H) HDL Cholesterol, Nonfasting >39 mg/dL 63 LDL Cholesterol, Nonfasting <100 mg/dL 235 (H) Non HDL Cholesterol, Nonfasting <130 mg/dL 267 (H) VLDL Cholesterol, Nonfasting <30 mg/dL 32 (H) Total Chol/HDL Ratio, Nonfasting <5.10 mg/dL 5.24 (H) LDL/HDL Ratio, Nonfasting <2.54 mg/dL 3.73 (H) Magnesium 1.7 - 2.3 mg/dL 2.2 ASSESSMENT/PLAN: 1. Migraine variant - ICD9: 346.20, ICD10: G43.809 (primary diagnosis) Stable, currently controlled, continue to monitor. - COMP METABOLIC PANEL - CBC + DIFF - DILTIAZEM SR 180 MG 24 HR CAP - NARATRIPTAN 2.5 MG TABLET - TOPIRAMATE 100 MG TABLET 2. Encounter for immunization - ICD9: V03.89, ICD10: Z23 declined 3. Screening for cervical cancer - ICD9: V76.2, ICD10: Z12.4 - CONSULT TO COMPENSATION SUPERVISOR 4. Hypercholesteremia - ICD9: 272.0, ICD10: E78.00 - COMP METABOLIC PANEL - LIPID PANEL, NONFASTING - ROSUVASTATIN 5 MG TABLET 5. Nausea - ICD9: 787.02, ICD10: R11.0 - PANTOPRAZOLE 40 MG TABLET,DELAYED RELEASE - PROMETHAZINE 25 MG TABLET 6. Gastroesophageal reflux disease, unspecified whether esophagitis present - ICD9: 530.81, ICD10: K21.9 - COMP METABOLIC PANEL - CBC + DIFF - PANTOPRAZOLE 40 MG TABLET,DELAYED RELEASE 7. Other chronic back pain - ICD9: 724.5, 338.29, ICD10: M54.9, G89.29 8. 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 - ICD9: 722.11, ICD10: M51.25 9. Cervicalgia - ICD9: 723.1, ICD10: M54.2 10. Displacement of cervical intervertebral disc without myelopathy - ICD9: 722.0, ICD10: M50.20 11. Cervicothoracic disc displacement - ICD9: 722.0, ICD10: M50.23 12. DDD (degenerative disc disease), lumbar - ICD9: 722.52, ICD10: M51.36 - CONSULT TO PAIN MGT - CYCLOBENZAPRINE 10 MG TABLET - DICLOFENAC SODIUM 50 MG TABLET,DELAYED RELEASE x-rays of spine 2021 No recent visit with spine or pain management. Would like to see Dr Zhang. Trial of Flexeril plus diclofenac to see if this helps with her pain, discussed this can make her very drowsy. labs today 6 mo follow up MD Carlee Garcia APRN.MANAGER WIND Medical Decision Making: Problems: Moderate: 2+ stable chronic illnesses Data: Unique test(s) ordered: 3+ Risk: Moderate: Drug management Medical Decision Making Level: 4 - Moderate documented in this encounterParkview Health04-19-2023 Miscellaneous Notes* Telephone Encounter - Akin Elliott MD - 12/27/2022 7:50 PM EDT Okayed * Telephone Encounter - Marina Galvan LPN - 12/27/2022 4:41 PM EDT Last seen pcp 09/13/22. Next appt with [employer] TE[employer]ER 03/16/23. * Telephone Encounter - Demetra Hayesc - 12/27/2022 11:36 AM EDT Patient has been identified by name and date of : Yes Requested Prescriptions Pending Prescriptions Disp Refills loperamide (ANTI-DIARRHEAL) 2 mg cap(s) 120 capsule 1 Sig: Take 1 capsule by mouth four times daily as needed for diarrhea. RX INSTRUCTIONS: Patient aware RX will be sent to pharmacy. No need to notify patient. [facility] documented in this encounterParkview Health01-04-2023 History of Present illness Narrative* Akin Elliott MD - 09/13/2022 10:22 AM EST This note was created using [employer]ach[employer]. Subjective Saulo Geiger is a 62 year old female. Patient presents with: F/U 6 months SUBJECTIVE: Saulo Geiger is a 62 year old year old lady here today for 6 month follow up appointment for review of medical conditions. Aching in her in arms in antecubital side and behind her knees. Wonders about arthritis. Bothering her the past 4 months. Noted that mom and maternal aunt have bad arthritis. No joint swelling. Noted new insurance with high deductible through [facility] for meds. Wants to get meds locally instead now. Noted that had run out of most of her meds. Not sure that gabapentin had helped for her pain. Has noted a noise in her head since ran out of meds. Taking lower dose of Topamax since was running out. Increased headaches/head pain noted. PAST MEDICAL HISTORY Diagnosis Date Bee sting allergy 04/28/2008 Concussion with no loss of consciousness Displacement of intervertebral disc, site unspecified, without myelopathy 11/30/2006 [facility] claim Disturbance of skin sensation Esophageal reflux Hypercholesteremia Mental disorder anxiety Multiple rib fractures 2012 Fell down stairs to basement-- 5th and 6th rib fractures and left great toe fracture Snoring Sprain of lumbosacral (joint) (ligament) Sprain of neck [facility] claim Sprain of thoracic region [facility] claim Tubular adenoma of colon 07/29/15 Dr. Caban Variants of migraine, not elsewhere classified, without mention of intractable migraine without mention of status migrainosus Current Outpatient Medications Medication Sig promethazine (PHENERGAN) 25 mg tablet Take 0.5-1 tablets by mouth every 6 hours as needed. ondansetron (ZOFRAN) 4 mg tablet Take 1 tablet by mouth every 8 hours as needed for nausea/vomiting(if not controlled with phenergan). ZINC ORAL Take by mouth. omega-3 fatty acids (FISH OIL CONCENTRATE ORAL) Take by mouth. loperamide (ANTI-DIARRHEAL) 2 mg cap(s) Take 1 capsule by mouth four times daily as needed for diarrhea. cholecalciferol, vitamin D3, (VITAMIN D3 ORAL) Take 1 capsule by mouth once daily. DULoxetine (CYMBALTA) 60 mg capsule Take 1 capsule by mouth twice daily. (Dr. Herrera) ALPRAZolam (XANAX) 0.5 mg tablet Take 1 tablet by mouth twice daily as needed. (Dr. Herrera) MV with Guw-Jvclhchi-Afqutt (CENTRUM SILVER) 0.4-300-250 mg-mcg-mcg tab Take 1 tablet by mouth oncedaily. levocetirizine (XYZAL) 5 mg tablet Take 1 tablet by mouth once daily. cyclobenzaprine (FLEXERIL) 10 mg tablet Take 1 tablet by mouth twice daily as needed for muscle spasm or pain (may make drowsy, avoid driving and other activities until you know how it affects you). dilTIAZem CD (CARTIA XT) 180 mg 24 hr capsule Take 1 capsule by mouth once daily. naratriptan (AMERGE) 2.5 mg tablet Take 1 tablet by mouth as needed. 2.5 mg at onset of headache, may repeat in 4 hours if needed rosuvastatin (CRESTOR) 5 mg tablet Take 1 tablet by mouth once daily. For Cholesterol topiramate (TOPAMAX) 100 mg tablet TAKE 2 TABLETS TWICE A DAY IN THE MORNING AND AT BEDTIME pantoprazole DR (PROTONIX) 40 mg tablet Take 1 tablet by mouth twice daily before meals (0600/1600). Take on empty stomach, 1/2 hr before meal. No current facility-administered medications for this visit. Review of Systems Objective BP 120/72 Pulse 74 Temp 37.2 C (99 F) Resp 18 Wt 70.3 kg (155 lb) LMP 10/18/2006 SpO2 98% BMI 25.02 kg/m Last 5 Encounter Wt Readings: Date: Wt: 09/13/2022 70.3 kg (155 lb) 07/26/2022 73 kg (161 lb) 03/24/2022 74.4 kg (164 lb) 12/13/2020 76.7 kg (169 lb) 08/04/2019 73.5 kg (162 lb) No waist measurement recorded Estimated body mass index is 25.02 kg/m as calculated from the following: Height as of 03/08/18: 167.6 cm (5' 6). Weight as of this encounter: 70.3 kg (155 lb). Last 5 Encounter BP Readings: Date: BP: 09/13/2022 120/72 07/26/2022 118/68 03/24/2022 122/72 12/13/2020 122/74 08/04/2019 118/64 Physical Exam Constitutional: Appearance: Normal appearance. HENT: Head: Normocephalic. Eyes: Conjunctiva/sclera: Conjunctivae normal. Cardiovascular: Rate and Rhythm: Normal rate and regular rhythm. Heart sounds: Normal heart sounds. Pulmonary: Effort: Pulmonary effort is normal. Breath sounds: Normal breath sounds. Musculoskeletal: Comments: No active synovitis. Mild tenderness popliteal fossa. Skin: General: Skin is warm and dry. Neurological: General: No focal deficit present. Mental Status: She is alert and oriented to person, place, and time. Psychiatric: Mood and Affect: Mood normal. Behavior: Behavior normal. Thought Content: Thought content normal. Judgment: Judgment normal. Assessment and Plan Encounter Diagnosis ICD-10-CM 1. Hypercholesteremia E78.00 rosuvastatin (CRESTOR) 5 mg tablet 2. Migraine variant G43.809 dilTIAZem CD (CARTIA XT) 180 mg 24 hr capsule naratriptan (AMERGE) 2.5 mg tablet topiramate (TOPAMAX) 100 mg tablet 3. Gastroesophageal reflux disease, unspecified whether esophagitis present K21.9 4. Mixed hyperlipidemia E78.2 LIPID PANEL BASIC TSH BLD 5. Pain in both upper extremities M79.601 M79.602 antecubital fossa--tendinitis 6. Popliteal pain M79.609 Suspect tendinitis 7. 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 M51.25 8. Cervicothoracic disc displacement M50.23 9. Displacement of cervical intervertebral disc without myelopathy M50.20 10. Osteopenia, unspecified location M85.80 VITAMIN D 25 HYDROXY Noted on Xrays 11. Encounter for long-term current use of medication Z79.899 COMP METABOLIC PANEL CBC MAGNESIUM BLD Above issues addressed with patient. Patient involved in shared decision making for management of medical issues. History and medications reviewed. Epic updated as needed Refills and/or prescriptions taken care of and meds adjusted as indicated after reviewed history, exam and labs. Health Maintenance reviewed. Updated record and/or ordered tests as recorded. Encouraged on efforts at healthy diet and regular exercise and adequate sleep. Plans to scheduled with pain management noted. I spent a total of 38 minutes on the date of the service which included [id number] patient care, completing clinical documentation, obtaining and/or reviewing separately obtained history, performing a medically appropriate examination, counseling and educating the patient/family/caregiver, and ordering medications, tests, or procedures. Akin Elliott MD documented in this encounterParkview Health12-30-2022 Miscellaneous Notes* Telephone Encounter - Marcie Judge LPN - 09/08/2022 10:47 AM EST Patient returned call and went over information. Patient said she can not schedule appt until she gets insurance card, her will be getting new insurance after beginning of the year. Patient will call back at that time. * Telephone Encounter - Britni Briones - 09/07/2022 10:19 AM EST POPULATION HEALTH NAVIGATION OUTREACH Action/[facility] Support: Called pt to schedule an appt in Pain Management. Lvm for pt to call [phone] for scheduling. Pt identified by name and : NO Outreach Outcome/Action Unable to reach patient: Left message Did you use a PCP flex slot to schedule this appointment? No Reason for Outreach Care Gap or Scheduling/Wellness visits Payer: No coverage found. Care Gap Reviewed:: AI Scheduling Reminder: Reminder note to check Health Maintenance for items below Health Maintenance items due: COVID-19 VACCINE(1) Never done PAP TESTING due on 07/09/2017 HPV TESTING due on 07/09/2017 MAMMOGRAM due on 05/01/2019 DEPRESSION ASSESSMENT Never done DTAP,TDAP,TD(2 - Td or Tdap) due on 05/03/2022 INFLUENZA(1) due on 05/11/2022 Navigation Signature: Britni Briones September 07, 2022 10:20 AM documented in this encounterParkview Health11-21-2022 Miscellaneous Notes* Telephone Encounter - Marcie Judge LPN - 07/31/2022 12:47 PM EST Patient has been identified by name and date of : Yes Patient phones for refill(s): Requested Prescriptions Pending Prescriptions Disp Refills promethazine (PHENERGAN) 25 mg tablet 30 tablet 5 Sig: Take 0.5-1 tablets by mouth every 6 hours as needed. ondansetron (ZOFRAN) 4 mg tablet 24 tablet 0 Sig: Take 1 tablet by mouth every 8 hours as needed for nausea/vomiting (if not controlled with phenergan). Date of last office visit in primary care: 03/24/2022, has appt 11/03/2022 Last 2 Encounter Wt Readings: Date: Wt: 07/26/2022 73 kg (161 lb) 03/24/2022 74.4 kg (164 lb) Previous labs/tests for medication: Not applicable Please advise. Thank you. Marcie Judge LPN Patient asking for both rx, one for daytime use and other for at night, she said she is ill right now. documented in this encounterParkview Health11-16-2022 Miscellaneous Notes* Telephone Encounter - Charu Lopez LPN - 07/26/2022 4:18 PM EST [facility] * Telephone Encounter - Cheyenne Gilbert APRN.CNP - 07/26/2022 11:14 AM EST If able and patient not already seen in [facility] I am okay with seeing this patient on my schedule. * Telephone Encounter - Jacqueline Newton RN - 07/26/2022 10:10 AM EST Patient phoned upset b/c pss would not schedule her with pcp office. Reports she does not have insurance. Noted pss did place referral to financial counselor. Did try to schedule appt, but no openings in pcp office and unable to schedule with the new Live Study Manager. Patient reports she has been sick for a month. Reports she has a weakened immune system and having fever, ear pain, runny nose, sore throat for a month. Did not do a covid home test. Reports she has been taking dayquil, nyquil but needs to see a provider today. Advised to for evaluation. Patient agreeable and states she plans to pay gloria. documented in this encounterParkview Health11-16-2022 History of Present illness Narrative* Sean Paulson MD - 07/26/2022 11:18 AM EST Patient presents with: Nasal Congestion: drainage, diarrhea, cough, chills, sore throat, fever and ear pain x 1 month HPI: Feeling sick for 1 month. Positive symptoms: Cough, Sore throat, Earache, Nasal Congestion, Rhinorrhea, Post nasal drainage, hot/Chills, Diarrhea, poor appetite, sometimes Shortness of breath, a couple Chest pains, weakness, fatigue Negative symptoms: Vomiting, OTC: Nyquil, Dayquil felt sick to his stomach a week or 2 ago. Has not had known COVID illness. PAST MEDICAL HISTORY Diagnosis Date Bee sting allergy 04/28/2008 Concussion with no loss of consciousness Displacement of intervertebral disc, site unspecified, without myelopathy 11/30/2006 [facility] claim Disturbance of skin sensation Esophageal reflux Hypercholesteremia Mental disorder anxiety Multiple rib fractures 2012 Fell down stairs to basement-- 5th and 6th rib fractures and left great toe fracture Snoring Sprain of lumbosacral (joint) (ligament) Sprain of neck [facility] claim Sprain of thoracic region [facility] claim Tubular adenoma of colon 07/29/15 Dr. Caban Variants of migraine, not elsewhere classified, without mention of intractable migraine without mention of status migrainosus MEDICATIONS: Current Outpatient Medications Medication Sig rosuvastatin (CRESTOR) 5 mg tablet Take 1 tablet by mouth once daily. ZINC ORAL Take by mouth. omega-3 fatty acids (FISH OIL CONCENTRATE ORAL) Take by mouth. naratriptan (AMERGE) 2.5 mg tablet Take 1 tablet by mouth as needed. 2.5 mg at onset of headache, may repeat in 4 hours if needed cyclobenzaprine (FLEXERIL) 10 mg tablet Take 1 tablet by mouth twice daily as needed for muscle spasm or pain (may make drowsy, avoid driving and other activities until you know how it affects you). levocetirizine (XYZAL) 5 mg tablet Take 1 tablet by mouth once daily. pantoprazole DR (PROTONIX) 40 mg tablet Take 1 tablet by mouth twice daily before meals (0600/1600). Take on empty stomach, 1/2 hr before meal. topiramate (TOPAMAX) 100 mg tablet TAKE 2 TABLETS TWICE A DAY IN THE MORNING AND AT BEDTIME dilTIAZem CD (CARTIA XT) 180 mg 24 hr capsule Take 1 capsule by mouth once daily. loperamide (ANTI-DIARRHEAL) 2 mg cap(s) Take 1 capsule by mouth four times daily as needed for diarrhea. gabapentin (NEURONTIN) 300 mg capsule Take 3 capsules in a.m., 4 capsules in p.m. promethazine (PHENERGAN) 25 mg tablet Take 0.5-1 tablets by mouth every 6 hours as needed. PREVALITE 4 gram packet Take 1 Packet by mouth one time only. sucralfate (CARAFATE) 1 gram tablet Take 1 tablet by mouth before meals and at bedtime. ondansetron (ZOFRAN) 4 mg tablet Take 1 tablet by mouth every 8 hours as needed for Nausea/Vomiting(if not controlled with phenergan). cholecalciferol, vitamin D3, (VITAMIN D3 ORAL) Take 1 capsule by mouth once daily. DULoxetine (CYMBALTA) 60 mg capsule Take 1 capsule by mouth twice daily. (Dr. Herrera) ALPRAZolam (XANAX) 0.5 mg tablet Take 1 tablet by mouth twice daily as needed. (Dr. Herrera) MV with Acs-Gfjefwdf-Uawyzk (CENTRUM SILVER) 0.4-300-250 mg-mcg-mcg tab Take 1 tablet by mouth oncedaily. No current facility-administered medications for this visit. ALLERGIES: ALLERGIES Allergen Reactions Bee Stings [Other] Morphine Vomiting Relafen [Nabumetone] Diarrhea 2005 tried med VITALS: BP 118/68 Pulse 90 Temp 36.4 C (97.5 F) Resp 16 Wt 73 kg (161 lb) LMP 10/18/2006 SpO2 96% BMI 25.99 kg/m PHYSICAL EXAM: GEN: mildly ill appearing, slow cognition HEENT: PERRL, EOMI, conjunctiva clear Ears: canals clear. TMs without erythema, bulge, or effusion Sinuses: tender frontal sinus, tender maxillary sinuses Throat: moist mucous membranes, mild erythema, no exudate Neck: supple, no thyromegaly, no lymphadenopathy HEART: regular rate and rhythm, no murmurs LUNGS: clear to auscultation, no wheezes or crackles, no increased WOB; occasional cough ASSESSMENT/PLAN: 1. Acute non-recurrent sinusitis, unspecified location - ICD9: 461.9, ICD10: J01.90 Treat for secondary bacterial sinusitis. - AMOXICILLIN 875 MG-POTASSIUM CLAVULANATE 125 MG TABLET Initial illness could have potentially been COVID. Testing at this time would be low yield. She declines testing out of cost concern also (advised likely no out of pocket expense). She had chronic diarrhea and antibiotic may worsen this. She may attempt an OTC probiotic. She believes her vitamin complex has probiotic in it. Sean Paulson MD documented in this encounterParkview Health07-25-2022 Miscellaneous Notes* Telephone Encounter - [place] Cabrera RN - 04/03/2022 11:44 AM EDT Patient returned call and given provider's message below and patient verbalized understanding. Tuyet Cabrera RN * Telephone Encounter - Victoria Walsh Ma - 04/03/2022 8:59 AM EDT Left message for return call. * Telephone Encounter - Carlee Tyler APRN.LAST - 04/02/2022 8:29 AM EDT Please leter her know cholesterol levels were elevated. Recommend a plant based diet such as Mediterranean diet with plenty of vegetables, fruits,whole grains, fish, chicken, turkey or plant proteins and routine exercise such as walking. Recommend rosuvastatin if willing to take; rx sent to pharmacy. Recheck labs 3 mos. Stop right awayand Let us know if any problems if she decides to take this medication. documented in this encounterParkview Health07-22-2022 Miscellaneous Notes* Telephone Encounter - Alida Ordonez LPN - 03/31/2022 12:08 PM EDT Patient was given providers message and verbalized understanding. Encounter routed to PSR to assistpatient in scheduling Bone Density. Copy of results mailed to patient. * Telephone Encounter - Carlee Tyler APRN.LAST - 03/31/2022 10:48 AM EDT Please let her know that the x-rays showed: Osteopenia and degenerative changes in the cervical spine and in the lumbar spine showed degenerative changes, osteopenia and scoliosis with compression deformity present since 2011. Discussed with PCP who recommended completing BMD, vitamin D and PTH. Complete at her earliest convenience. Continue with 1200 mg of calcium through diet or supplement daily, vitamin D3 at least 800 IU dailyand routine weight bearing exercise such as walking Cervical: 2 views of the cervical spine demonstrate osteopenia and multilevel degenerative change with vertebral body osteophytosis and disc space narrowing, greatest at C5-6 where there is mild reversal the normal cervical lordosis.. There are no vertebral body compression deformities and alignment is well maintained. The atlantoaxial interval and craniocervical junction are intact. There is no prevertebral soft tissue abnormality. Thoracic spine: There is normal alignment without fracture or subluxation. Disc spaces are relatively well-maintained. No pedicle erosion or paraspinal abnormality is evident. Remote, healed right rib fractures. Lumbar spine: 3 Views of the lumbosacral spine with AP, lateral and cone-down radiographs demonstrate osteopenia,scoliotic fracture and multilevel degenerative change with vertebral body osteophytosis. There is mild intervertebral disc space narrowing at all lumbar levels. Hypertrophic facet change noted at the lower 2 levels. Subtle 2-3 mm retrolisthesis of L2 on L3 and L3 on L4. Mild loss of the normal thoracolumbar lordosis without associated compression deformity is stable dating back to 2011. There are no acute compression fractures and alignment is otherwise well maintained. The soft tissues are unremarkable. * Telephone Encounter - Florida Cabrera RN - 03/29/2022 2:04 PM EDT Patient reports she was seen by Carlee Tyler on 03/24/22 for back pain and xrays were also completed. She is asking if provider could advise on the xray results when able. Thank you. documented in this encounterParkview Health07-22-2022 Instructions* Patient Instructions* Carlee Tyler APRN.CNS - 03/31/2022 9:06 AM EDT BONE MINERAL DENSITY PATIENT INSTRUCTIONS Bone mineral density testing measures the amount of calcium in certain parts of your bones. This information determines how strong your bones are. The test is used to detect osteoporosis, a disease in which the bone's mineral content and density are low, increasing a person's risk of fractures. Thelumbar spine (lower back) and the hip are the skeletal sites usually examined. For the test, remember that: 1. You cannot take this test if you are . 2. Eat a normal diet on the day of the test. 3. Take your medications as you normally would. 4. DO NOT take calcium supplements (such as Tums) for 24 hours before the test. 5. On the day of the test, leave valuables (jewelry or credit cards) at home. 6. The test should be performed prior to oral, rectal or IV contrast studies, or at least 7 days after any of these studies. For the test, you may be asked to wear a hospital gown. You will lie on your back, on a padded table, in a comfortable position. Generally, you can resume your usual activities immediately. documented in this encounterParkview Health07-15-2022 History of Present illness Narrative* Jazmin Mott RT(R) - 03/24/2022 12:00 PM EDT Radiology Service Progress Note PATIENT NAME: Saulo Geiger DATE OF SERVICE: March 24, 2022 TIME: 11:59 AM PATIENT IDENTITY VERIFICATION COMPLETED USING TWO (2) IDENTIFIERS: Name and Date of confirmedby patient verbally. FALL SCREENING: Has the patient had 2 falls in the last year or 1 fall with injury or currently using an Ambulatory Assistive Device (Walker, Cane, Wheelchair, Crutches, etc.)? No PATIENT GENDER DATA: Female. status: : No status: NO. PATIENT RELEVANT IMPLANT DATA REVIEWED: Not Applicable RADIOLOGY DEPARTMENT: General X-ray: Exam(s) Completed: Spine X-Ray(s): Cervical AP / LAT , Thoracic and Lumbar AP / LAT / L5-S1 PERIPHERAL IV DATA: Not applicable SIGNED BY: RT Wilber(R) March 24, 2022 11:59 AM documented in this encounterParkview Health07-15-2022 Instructions* Patient Instructions* Carlee Tyler APRN.CNS - 03/24/2022 11:20 AM EDT Check to see if your insurance covers shingles vaccine and what location to get the vaccine -usually best covered at your local pharmacy where you get prescriptions filled documented in this encounterParkview Health07-15-2022 History of Present illness Narrative* Carlee Tyler APRN.CNS - 03/24/2022 10:59 AM EDT SUBJECTIVE: COVID-19 VACCINE(1) Never done HEPATITIS C SCREENING Never done HIV SCREENING Never done SHINGRIX VACCINE(1 of 2) Never done PAP TESTING due on 07/09/2017 HPV TESTING due on 07/09/2017 MAMMOGRAM due on 05/01/2019 HPI Sualo Geiger is a 61 year old female. 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 She notes she had spinal injections in the past knee did not help much. She reports she cannot goto physical therapy, states PCP advised her of that Has chronic headaches, topiramate does help. In need of refill of triptan. Followed at the counseling center, . Hyperlipidemia. Ms. Geiger reports doing well on current therapy Her most recent lipid panels are: Cholesterol, Total (mg/dL) Date Value 12/10/2020 246 08/10/2018 234 HDL Cholesterol (mg/dL) Date Value 12/10/2020 52 08/10/2018 45 LDL Cholesterol (mg/dL) Date Value 12/10/2020 132 08/10/2018 143 Triglyceride (mg/dL) Date Value 12/10/2020 312 08/10/2018 228 Review of Systems Constitutional: Negative. Musculoskeletal: Positive for back pain, neck pain and neck stiffness. Neurological: Positive for headaches. Objective BP 122/72 Pulse 80 Resp 16 Wt 74.4 kg (164 lb) LMP 10/18/2006 SpO2 97% BMI 26.47 kg/m Physical Exam Vitals and nursing note reviewed. Constitutional: Appearance: Normal appearance. HENT: Head: Normocephalic. Eyes: Conjunctiva/sclera: Conjunctivae normal. Cardiovascular: Rate and Rhythm: Normal rate and regular rhythm. Heart sounds: Normal heart sounds. Pulmonary: Effort: Pulmonary effort is normal. Breath sounds: Normal breath sounds. Abdominal: General: Bowel sounds are normal. Palpations: Abdomen is soft. Musculoskeletal: Right lower leg: No edema. Left lower leg: No edema. Skin: General: Skin is warm and dry. Neurological: Mental Status: She is alert. Mental status is at baseline. ALLERGIES Allergen Reactions Bee Stings [Other] Morphine Vomiting Relafen [Nabumetone] Diarrhea 2005 tried med Medications ZINC ORAL Take by mouth. omega-3 fatty acids (FISH OIL CONCENTRATE ORAL) Take by mouth. pantoprazole DR (PROTONIX) 40 mg tablet Take 1 tablet by mouth twice daily before meals (0600/1600). Take on empty stomach, 1/2 hr before meal. topiramate (TOPAMAX) 100 mg tablet TAKE 2 TABLETS TWICE A DAY IN THE MORNING AND AT BEDTIME dilTIAZem CD (CARTIA XT) 180 mg 24 hr capsule Take 1 capsule by mouth once daily. promethazine (PHENERGAN) 25 mg tablet Take 0.5-1 tablets by mouth every 6 hours as needed. PREVALITE 4 gram packet Take 1 Packet by mouth one time only. sucralfate (CARAFATE) 1 gram tablet Take 1 tablet by mouth before meals and at bedtime. ondansetron (ZOFRAN) 4 mg tablet Take 1 tablet by mouth every 8 hours as needed for Nausea/Vomiting(if not controlled with phenergan). loratadine (CLARITIN) 10 mg tablet Take 1 tablet by mouth once daily. cholecalciferol, vitamin D3, (VITAMIN D3 ORAL) Take 1 capsule by mouth once daily. DULoxetine (CYMBALTA) 60 mg capsule Take 1 capsule by mouth twice daily. (Dr. Herrera) ALPRAZolam (XANAX) 0.5 mg tablet Take 1 tablet by mouth twice daily as needed. (Dr. Herrera) naratriptan (AMERGE) 2.5 mg tablet Take 1 tablet by mouth as needed. 2.5 mg at onset of headache, may repeat in 4 hours if needed loperamide (ANTI-DIARRHEAL) 2 mg cap(s) Take 1 capsule by mouth four times daily as needed for diarrhea. gabapentin (NEURONTIN) 300 mg capsule Take 3 capsules in a.m., 4 capsules in p.m. MV with Kuc-Qeqqfmiu-Qjnbqs (CENTRUM SILVER) 0.4-300-250 mg-mcg-mcg tab Take 1 tablet by mouth oncedaily. PAST MEDICAL HISTORY Diagnosis Date Bee sting allergy 04/28/2008 Concussion with no loss of consciousness Displacement of intervertebral disc, site unspecified, without myelopathy 11/30/2006 [facility] claim Disturbance of skin sensation Esophageal reflux Hypercholesteremia Mental disorder anxiety Multiple rib fractures 2012 Fell down stairs to basement-- 5th and 6th rib fractures and left great toe fracture Snoring Sprain of lumbosacral (joint) (ligament) Sprain of neck [facility] claim Sprain of thoracic region [facility] claim Tubular adenoma of colon 07/29/15 Dr. Caban Variants of migraine, not elsewhere classified, without mention of intractable migraine without mention of status migrainosus Social History Tobacco Use Smoking status: Former Smoker Packs/day: 0.50 Types: Cigarettes Quit date: 07/21/2015 Years since quittin.6 Smokeless tobacco: Never Used Tobacco comment: was smoking less than one half pack; had cut back until able to quit 08/10/2009 Substance Use Topics Alcohol use: Yes Comment: rarely Drug use: No ASSESSMENT/PLAN: 1. Other chronic back pain - ICD9: 724.5, 338.29, ICD10: M54.9, G89.29 (primary diagnosis) - CON[facility]ULT TO [facility] - CONSULT TO PAIN MGT - XR CERV GENERAL 2V AP/LAT - XR THORACIC GENERAL 3V AP/LAT/SWIMMERS - XR LUMBAR GENERAL 3V AP/LAT/L5-S1 2. Migraine variant - ICD9: 346.20, ICD10: G43.809 Continue migraine treatment unchanged. - NARATRIPTAN 2.5 MG TABLET - NARATRIPTAN 2.5 MG TABLET 3. Cervicalgia - ICD9: 723.1, ICD10: M54.2 - CONSULT TO [facility] - CONSULT TO PAIN MGT - XR CERV GENERAL 2V AP/LAT - XR THORACIC GENERAL 3V AP/LAT/SWIMMERS - XR LUMBAR GENERAL 3V AP/LAT/L5-S1 4. 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 - ICD9: 722.11, ICD10: M51.25 - CONSULT TO [facility] - CONSULT TO PAIN MGT - XR CERV GENERAL 2V AP/LAT - XR THORACIC GENERAL 3V AP/LAT/SWIMMERS - XR LUMBAR GENERAL 3V AP/LAT/L5-S1 5. Cervicothoracic disc displacement - ICD9: 722.0, ICD10: M50.23 - CONSULT TO [facility] - CONSULT TO PAIN MGT - XR CERV GENERAL 2V AP/LAT - XR THORACIC GENERAL 3V AP/LAT/SWIMMERS - XR LUMBAR GENERAL 3V AP/LAT/L5-S1 6. Encounter for immunization - ICD9: V03.89, ICD10: Z23 - [id number] COVID-19 VACCINE, AGE 12+ YR (XIE TOP) 7. Special screening examination for viral disease - ICD9: V73.99, ICD10: Z11.59 8. Screening for HIV (human immunodeficiency virus) - ICD9: V73.89, ICD10: Z11.4 declines HIV and Hep C screening. 9. Screening for cervical cancer - ICD9: V76.2, ICD10: Z12.4 10. Encounter for gynecological examination without abnormal finding - ICD9: V72.31, ICD10: Z01.419 No recent [employer] visit, due for Pap, HPV - CONSULT TO GYNECOLOGY 11. Gastroesophageal reflux disease, unspecified whether esophagitis present - ICD9: 530.81, ICD10:K21.9 Stable, currently controlled, continue to monitor. - COMP METABOLIC PANEL - CBC + DIFF 12. Hypercholesteremia - ICD9: 272.0, ICD10: E78.00 - COMP METABOLIC PANEL - LIPID PANEL, NONFASTING 13. Encounter for screening mammogram for breast cancer - ICD9: V76.12, ICD10: Z12.31 Endorse routine self-exam Mammogram yearly Recommend x-rays of spine today, no recent imaging No recent visit with spine or pain management, will consider. Trial of Flexeril to see if this helps with her pain, discussed this can make her very drowsy so atbedtime to begin with. 6 mo follow up MD Carlee Garcia APRN.CNS Medical Decision Making: Problems: Moderate: 2+ stable chronic illnesses Data: Unique test(s) ordered: 3+ Risk: Moderate: Drug management Medical Decision Making Level: 4 - Moderate documented in this encounterParkview Health06-29-2022 Miscellaneous Notes* Addendum Note - Cheyenne Ontiveros APRN.CNP - 03/08/2022 11:18 AM EDT Addended by: CHEYENNE ONTIVEROS on: 03/08/2022 11:18 AM Modules accepted: Orders * Telephone Encounter - Jo Sparks LPN - 03/08/2022 10:45 AM EDT Pt called in and states she spoke with her insurance and they need to hear from our office. Pt having problems getting her naratriptan. I called [phone] and was told they did not receive the last prescription dated 02-28-22. Requesting a new prescription for pt. She is out of medication. Patient has been identified by name and date of : Yes Patient phones for refill(s): Pending Prescriptions Disp Refills NARATRIPTAN 2.5 MG TABLET 27 tablet 0 Sig: Take 1 tablet by mouth as needed. 2.5 mg at onset of headache, may repeat in 4 hours if needed MACY: No Date of last office visit in primary care: 06/24/21 next apt 03/24/22 Last 2 Encounter Wt Readings: Date: Wt: 12/13/2020 76.7 kg (169 lb) 08/04/2019 73.5 kg (162 lb) Previous labs/tests for medication: Not applicable Please advise. Thank you. Jo Sparks LPN documented in this encounterParkview Health06-21-2022 Miscellaneous Notes* Telephone Encounter - Neyda Templeton LPN - 02/28/2022 1:12 PM EDT Patient is asking for increase in the amount dispensed. Jordy will dispense 3 boxes of 9 tablets, she is wanting 6 boxes of 9 tablets. Medication follow-up: 03/24/2022 Neyda Templeton LPN documented in this encounterParkview Health06-10-2022 Miscellaneous Notes* Telephone Encounter - Nilsa Lara RN - 02/17/2022 12:11 PM EDT Patient calls and states the omeprazole costs too much. Patient asking if a different medication can be ordered? Patient states that her take pantoprazole and it works for him. Patient askingif medication can be switched to that? Last Office Visit: 06/24/2021 Future Office Visit: 03/24/2022 Last Medication Refill: naratriptan 01/12/2022 27 tab 0 refill Date of Last Labs: 12/10/2020 Please review and advise, and give patient a call back, Nilsa Lara RN documented in this encounterParkview Health05-10-2022 Miscellaneous Notes* Telephone Encounter - Misa Nicole RN - 01/17/2022 12:17 PM EDT Patient has been identified by name and date of : Yes Patient phones for refill(s): Pending Prescriptions Disp Refills OMEPRAZOLE 40 MG CAPSULE,DELAYED RELEASE 180 capsule 1 Sig: Take 1 capsule by mouth twice daily. MACY: No Date of last office visit in primary care: 06/24/21 Future visit: 03/24/22 Last 2 Encounter Wt Readings: Date: Wt: 12/13/2020 76.7 kg (169 lb) 08/04/2019 73.5 kg (162 lb) Previous labs/tests for medication: Blood Pressure: BUN (mg/dL) Date Value 12/10/2020 16 Sodium (mmol/L) Date Value 12/10/2020 144 Last 1 Encounter BP Readings: Date: BP: 12/13/2020 122/74 Liver Function: ALT (U/L) Date Value 12/10/2020 21 AST (U/L) Date Value 12/10/2020 19 Please advise. Thank you. Misa Nicole RN documented in this encounterParkview Health05-09-2022 Miscellaneous Notes* Telephone Encounter - Marge Santos - 01/16/2022 3:57 PM EDT Opened in error documented in this encounterParkview Health05-05-2022 Miscellaneous Notes* Telephone Encounter - Misa Nicole RN - 01/12/2022 1:24 PM EDT Pt reports she is out of migraine pills and needs them sent in. Patient has been identified by name and date of : Yes Patient phones for refill(s): Pending Prescriptions Disp Refills NARATRIPTAN 2.5 MG TABLET 27 tablet 0 Sig: Take 1 tablet by mouth as needed. 2.5 mg at onset of headache, may repeat in 4 hours if needed MACY: No Date of last office visit in primary care: 06/24/21 Future visit: 01/16/21 Last 2 Encounter Wt Readings: Date: Wt: 12/13/2020 76.7 kg (169 lb) 08/04/2019 73.5 kg (162 lb) Previous labs/tests for medication: Blood Pressure: BUN (mg/dL) Date Value 12/10/2020 16 Sodium (mmol/L) Date Value 12/10/2020 144 Last 1 Encounter BP Readings: Date: BP: 12/13/2020 122/74 Liver Function: ALT (U/L) Date Value 12/10/2020 21 AST (U/L) Date Value 12/10/2020 19 Please advise. Thank you. Misa Nicole RN documented in this encounterParkview Health07-25-2017 History of Past illness Narrative* Problem Noted Date Resolved Date Non-cardiac chest pain 04/03/2017 9 Overview: Added automatically from request for surgery [id number] Bright red rectal bleeding 07/29/201507/29 Nausea 07/29/2015 07/29/2015 DDD (degenerative disc disease), lumbar 08/02/20 12 07/09/2019 Last Assessment & Plan: Followed by [facility] Dr Escobedo Lumbar spondylosis 08/02/2012 07/09/2019 Lumbago 07/03/2012 07/09/2019 Painful respiration 10/19/2008 08/21/2013 Sprain of lumbosacral (joint) (ligament) 009 07/09/2019 Concussion with no loss of consciousness 07/09/2019 Sprain of neck 07/09/2019 Sprain of thoracic region 2018 Disturbance of skin sensation documented as of this encounter (statuses as of 01/12/2022) [facility] History of Past illness Narrative* Problem Noted Date Resolved Date Non-cardiac chest pain 04/03/2017 9 Overview: Added automatically from request for surgery [id number] Bright red rectal bleeding 07/29/201507/29 Nausea 07/29/2015 07/29/2015 DDD (degenerative disc disease), lumbar 08/02/20 12 07/09/2019 Last Assessment & Plan: Followed by [facility] Dr Escobedo Lumbar spondylosis 08/02/2012 07/09/2019 Lumbago 07/03/2012 07/09/2019 Painful respiration 10/19/2008 08/21/2013 Sprain of lumbosacral (joint) (ligament) 009 07/09/2019 Concussion with no loss of consciousness 07/09/2019 Sprain of neck 07/09/2019 Sprain of thoracic region 2018 Disturbance of skin sensation documented as of this encounter (statuses as of 01/16/2022) [facility] History of Past illness Narrative* Problem Noted Date Resolved Date Non-cardiac chest pain 04/03/2017 9 Overview: Added automatically from request for surgery [id number] Bright red rectal bleeding 07/29/201507/29 Nausea 07/29/2015 07/29/2015 DDD (degenerative disc disease), lumbar 08/02/20 12 07/09/2019 Last Assessment & Plan: [facility] Dr Escobedo Lumbar spondylosis 08/02/2012 07/09/2019 Lumbago 07/03/2012 07/09/2019 Painful respiration 10/19/2008 08/21/2013 Sprain of lumbosacral (joint) (ligament) 009 07/09/2019 Concussion with no loss of consciousness 07/09/2019 Sprain of neck 07/09/2019 Sprain of thoracic region 2018 Disturbance of skin sensation documented as of this encounter (statuses as of 01/17/2022) [facility]2017 History of Past illness Narrative* Problem Noted Date Resolved Date Non-cardiac chest pain 04/03/2017 9 Overview: Added automatically from request for surgery [id number] Bright red rectal bleeding 07/29/201507/29 Nausea 07/29/2015 07/29/2015 DDD (degenerative disc disease), lumbar 08/02/20 12 07/09/2019 Last Assessment & Plan: Followed by nonCCF Dr Escobedo Lumbar spondylosis 08/02/2012 07/09/2019 Lumbago 07/03/2012 07/09/2019 Painful respiration 10/19/2008 08/21/2013 Sprain of lumbosacral (joint) (ligament) 009 07/09/2019 Concussion with no loss of consciousness 07/09/2019 Sprain of neck 07/09/2019 Sprain of thoracic region 2018 Disturbance of skin sensation documented as of this encounter (statuses as of 02/17/2022) [facility] History of Past illness Narrative* Problem Noted Date Resolved Date Non-cardiac chest pain 04/03/2017 9 Overview: Added automatically from request for surgery [id number] Bright red rectal bleeding 07/29/201507/29 Nausea 07/29/2015 07/29/2015 DDD (degenerative disc disease), lumbar 08/02/20 12 07/09/2019 Last Assessment & Plan: Followed by nonCCF Dr Escobedo Lumbar spondylosis 08/02/2012 07/09/2019 Lumbago 07/03/2012 07/09/2019 Painful respiration 10/19/2008 08/21/2013 Sprain of lumbosacral (joint) (ligament) 009 07/09/2019 Concussion with no loss of consciousness 07/09/2019 Sprain of neck 07/09/2019 Sprain of thoracic region 2018 Disturbance of skin sensation documented as of this encounter (statuses as of 02/28/2022) [facility] History of Past illness Narrative* Problem Noted Date Resolved Date Non-cardiac chest pain 04/03/2017 9 Overview: Added automatically from request for surgery [id number] Bright red rectal bleeding 07/29/201507/29 Nausea 07/29/2015 07/29/2015 DDD (degenerative disc disease), lumbar 08/02/20 12 07/09/2019 Last Assessment & Plan: Followed by nonCCF Dr Escobedo Lumbar spondylosis 08/02/2012 07/09/2019 Lumbago 07/03/2012 07/09/2019 Painful respiration 10/19/2008 08/21/2013 Sprain of lumbosacral (joint) (ligament) 009 07/09/2019 Concussion with no loss of consciousness 07/09/2019 Sprain of neck 07/09/2019 Sprain of thoracic region 2018 Disturbance of skin sensation documented as of this encounter (statuses as of 03/08/2022) [facility] History of Past illness Narrative* Problem Noted Date Resolved Date Non-cardiac chest pain 04/03/2017 9 Overview: Added automatically from request for surgery [id number] Bright red rectal bleeding 07/29/201507/29 Nausea 07/29/2015 07/29/2015 DDD (degenerative disc disease), lumbar 08/02/20 12 07/09/2019 Last Assessment & Plan: Followed by nonC Dr Escobedo Lumbar spondylosis 08/02/2012 07/09/2019 Lumbago 07/03/2012 07/09/2019 Painful respiration 10/19/2008 08/21/2013 Sprain of lumbosacral (joint) (ligament) 009 07/09/2019 Concussion with no loss of consciousness 07/09/2019 Sprain of neck 07/09/2019 Sprain of thoracic region 2018 Disturbance of skin sensation documented as of this encounter (statuses as of 03/13/2022) [facility] History of Past illness Narrative* Problem Noted Date Resolved Date Non-cardiac chest pain 04/03/2017 9 Overview: Added automatically from request for surgery [id number] Bright red rectal bleeding 07/29/201507/29 Nausea 07/29/2015 07/29/2015 DDD (degenerative disc disease), lumbar 08/02/20 12 07/09/2019 Last Assessment & Plan: Followed by nonCCF Dr Escobedo Lumbar spondylosis 08/02/2012 07/09/2019 Lumbago 07/03/2012 07/09/2019 Painful respiration 10/19/2008 08/21/2013 Sprain of lumbosacral (joint) (ligament) 009 07/09/2019 Concussion with no loss of consciousness 07/09/2019 Sprain of neck 07/09/2019 Sprain of thoracic region 2018 Disturbance of skin sensation documented as of this encounter (statuses as of 03/24/2022) [facility] History of Past illness Narrative* Problem Noted Date Resolved Date Non-cardiac chest pain 04/03/2017 9 Overview: Added automatically from request for surgery [id number] Bright red rectal bleeding 07/29/201507/29 Nausea 07/29/2015 07/29/2015 DDD (degenerative disc disease), lumbar 08/02/20 12 07/09/2019 Last Assessment & Plan: Followed by nonCCF Dr Escobedo Lumbar spondylosis 08/02/2012 07/09/2019 Lumbago 07/03/2012 07/09/2019 Painful respiration 10/19/2008 08/21/2013 Sprain of lumbosacral (joint) (ligament) 009 07/09/2019 Concussion with no loss of consciousness 07/09/2019 Sprain of neck 07/09/2019 Sprain of thoracic region 2018 Disturbance of skin sensation documented as of this encounter (statuses as of 03/31/2022) [facility] History of Past illness Narrative* Problem Noted Date Resolved Date Non-cardiac chest pain 04/03/2017 9 Overview: Added automatically from request for surgery [id number] Bright red rectal bleeding 07/29/201507/29 Nausea 07/29/2015 07/29/2015 DDD (degenerative disc disease), lumbar 08/02/20 12 07/09/2019 Last Assessment & Plan: Followed by nonCCF Dr Escobedo Lumbar spondylosis 08/02/2012 07/09/2019 Lumbago 07/03/2012 07/09/2019 Painful respiration 10/19/2008 08/21/2013 Sprain of lumbosacral (joint) (ligament) 009 07/09/2019 Concussion with no loss of consciousness 07/09/2019 Sprain of neck 07/09/2019 Sprain of thoracic region 2018 Disturbance of skin sensation documented as of this encounter (statuses as of 04/03/2022) [facility] History of Past illness Narrative* Problem Noted Date Resolved Date Non-cardiac chest pain 04/03/2017 9 Overview: Added automatically from request for surgery [id number] Bright red rectal bleeding 07/29/201507/29 Nausea 07/29/2015 07/29/2015 DDD (degenerative disc disease), lumbar 08/02/20 12 07/09/2019 Last Assessment & Plan: Followed by nonCCF Dr Escobedo Lumbar spondylosis 08/02/2012 07/09/2019 Lumbago 07/03/2012 07/09/2019 Painful respiration 10/19/2008 08/21/2013 Sprain of lumbosacral (joint) (ligament) 009 07/09/2019 Concussion with no loss of consciousness 07/09/2019 Sprain of neck 07/09/2019 Sprain of thoracic region 2018 Disturbance of skin sensation documented as of this encounter (statuses as of 07/26/2022) [facility] History of Past illness Narrative* Problem Noted Date Resolved Date Non-cardiac chest pain 04/03/2017 9 Overview: Added automatically from request for surgery [id number] Bright red rectal bleeding 07/29/201507/29 Nausea 07/29/2015 07/29/2015 DDD (degenerative disc disease), lumbar 08/02/20 12 07/09/2019 Last Assessment & Plan: Followed by nonCCF Dr Escobedo Lumbar spondylosis 08/02/2012 07/09/2019 Lumbago 07/03/2012 07/09/2019 Painful respiration 10/19/2008 08/21/2013 Sprain of lumbosacral (joint) (ligament) 009 07/09/2019 Concussion with no loss of consciousness 07/09/2019 Sprain of neck 07/09/2019 Sprain of thoracic region 2018 Disturbance of skin sensation documented as of this encounter (statuses as of 07/26/2022) [facility] History of Past illness Narrative* Problem Noted Date Resolved Date Non-cardiac chest pain 04/03/2017 9 Overview: Added automatically from request for surgery [id number] Bright red rectal bleeding 07/29/201507/29 Nausea 07/29/2015 07/29/2015 DDD (degenerative disc disease), lumbar 08/02/20 12 07/09/2019 Last Assessment & Plan: Followed by nonCCF Dr Escobedo Lumbar spondylosis 08/02/2012 07/09/2019 Lumbago 07/03/2012 07/09/2019 Painful respiration 10/19/2008 08/21/2013 Sprain of lumbosacral (joint) (ligament) 009 07/09/2019 Concussion with no loss of consciousness 07/09/2019 Sprain of neck 07/09/2019 Sprain of thoracic region 2018 Disturbance of skin sensation documented as of this encounter (statuses as of 07/31/2022) [facility] History of Past illness Narrative* Problem Noted Date Resolved Date Non-cardiac chest pain 04/03/2017 9 Overview: Added automatically from request for surgery [id number] Bright red rectal bleeding 07/29/201507/29 Nausea 07/29/2015 07/29/2015 DDD (degenerative disc disease), lumbar 08/02/20 12 07/09/2019 Last Assessment & Plan: Followed by nonCCF Dr Escobedo Lumbar spondylosis 08/02/2012 07/09/2019 Lumbago 07/03/2012 07/09/2019 Painful respiration 10/19/2008 08/21/2013 Sprain of lumbosacral (joint) (ligament) 009 07/09/2019 Concussion with no loss of consciousness 07/09/2019 Sprain of neck 07/09/2019 Sprain of thoracic region 2018 Disturbance of skin sensation documented as of this encounter (statuses as of 09/13/2022) [facility] History of Past illness Narrative* Problem Noted Date Resolved Date Non-cardiac chest pain 04/03/2017 9 Overview: Added automatically from request for surgery [id number] Bright red rectal bleeding 07/29/201507/29 Nausea 07/29/2015 07/29/2015 DDD (degenerative disc disease), lumbar 08/02/20 12 07/09/2019 Last Assessment & Plan: Followed by nonCCF Dr Escobedo Lumbar spondylosis 08/02/2012 07/09/2019 Lumbago 07/03/2012 07/09/2019 Painful respiration 10/19/2008 08/21/2013 Sprain of lumbosacral (joint) (ligament) 009 07/09/2019 Concussion with no loss of consciousness 07/09/2019 Sprain of neck 07/09/2019 Sprain of thoracic region 2018 Disturbance of skin sensation documented as of this encounter (statuses as of 10/09/2022) [facility] History of Past illness Narrative* Problem Noted Date Resolved Date Non-cardiac chest pain 04/03/2017 9 Overview: Added automatically from request for surgery [id number] Bright red rectal bleeding 07/29/201507/29 Nausea 07/29/2015 07/29/2015 DDD (degenerative disc disease), lumbar 08/02/20 12 07/09/2019 Last Assessment & Plan: Followed by nonCCF Dr Escobedo Lumbar spondylosis 08/02/2012 07/09/2019 Lumbago 07/03/2012 07/09/2019 Painful respiration 10/19/2008 08/21/2013 Sprain of lumbosacral (joint) (ligament) 009 07/09/2019 Concussion with no loss of consciousness 07/09/2019 Sprain of neck 07/09/2019 Sprain of thoracic region 2018 Disturbance of skin sensation documented as of this encounter (statuses as of 12/28/2022) [facility] History of Past illness Narrative* Problem Noted Date Resolved Date Non-cardiac chest pain 04/03/2017 9 Overview: Added automatically from request for surgery [id number] Bright red rectal bleeding 07/29/201507/29 Nausea 07/29/2015 07/29/2015 DDD (degenerative disc disease), lumbar 08/02/20 12 07/09/2019 Last Assessment & Plan: Followed by nonCCF Dr Escobedo Lumbar spondylosis 08/02/2012 07/09/2019 Lumbago 07/03/2012 07/09/2019 Painful respiration 10/19/2008 08/21/2013 Sprain of lumbosacral (joint) (ligament) 009 07/09/2019 Concussion with no loss of consciousness 07/09/2019 Sprain of neck 07/09/2019 Sprain of thoracic region 2018 Disturbance of skin sensation documented as of this encounter (statuses as of 02/12/2023) [facility]2017 History of Past illness Narrative* Problem Noted Date Resolved Date Non-cardiac chest pain 04/03/2017 9 Overview: Added automatically from request for surgery [id number] Bright red rectal bleeding 07/29/201507/29 Nausea 07/29/2015 07/29/2015 DDD (degenerative disc disease), lumbar 08/02/20 12 07/09/2019 Last Assessment & Plan: Followed by nonCCF Dr Escobedo Lumbar spondylosis 08/02/2012 07/09/2019 Lumbago 07/03/2012 07/09/2019 Painful respiration 10/19/2008 08/21/2013 Sprain of lumbosacral (joint) (ligament) 009 07/09/2019 Concussion with no loss of consciousness 07/09/2019 Sprain of neck 07/09/2019 Sprain of thoracic region 2018 Disturbance of skin sensation documented as of this encounter (statuses as of 03/16/2023) [facility] History of Past illness Narrative* Problem Noted Date Diagnosed Date Resolved Date Non-cardiac chest pain 04/03/201707/09 Overview: Added automatically from request for surgery [id number] Bright red rectal bleeding 07/29/2015 1 09/28/2014 Nausea 07/29/2015 07/29/2015 DDD (degenerative disc disease), lumbar 08/02/2012 07/09/2019 Last Assessment & Plan: Followed by nonCCF Dr Escobedo Lumbar spondylosis 08/02/2012 9 Lumbago 07/03/2012 07/09/2019 Painful respiration 10/19/2008 08/21/20 13 Sprain of lumbosacral (joint) (ligament) 09/29/2008 07/09/2019 Concussion with no loss of consciousness 07/09/2019 Sprain of neck 07/09/2019 Sprain of thoracic region Disturbance of skin sensation 07/09/2019 documented as of this encounter (statuses as of 03/20/2023) [facility] History of Past illness Narrative* Problem Noted Date Diagnosed Date Resolved Date Non-cardiac chest pain 04/03/201707/09 Overview: Added automatically from request for surgery [id number] Bright red rectal bleeding 07/29/2015 1 09/28/2014 Nausea 07/29/2015 07/29/2015 DDD (degenerative disc disease), lumbar 08/02/2012 07/09/2019 Last Assessment & Plan: Followed by nonCCF Dr Escobedo Lumbar spondylosis 08/02/2012 9 Lumbago 07/03/2012 07/09/2019 Painful respiration 10/19/2008 08/21/20 13 Sprain of lumbosacral (joint) (ligament) 09/29/2008 07/09/2019 Concussion with no loss of consciousness 07/09/2019 Sprain of neck 07/09/2019 Sprain of thoracic region Disturbance of skin sensation 07/09/2019 documented as of this encounter (statuses as of 03/29/2023) [facility]2017 History of Past illness Narrative* Problem Noted Date Diagnosed Date Resolved Date Non-cardiac chest pain 04/03/201707/09 Overview: Added automatically from request for surgery [id number] Bright red rectal bleeding 07/29/2015 1 09/28/2014 Nausea 07/29/2015 07/29/2015 DDD (degenerative disc disease), lumbar 08/02/2012 07/09/2019 Last Assessment & Plan: Followed by nonC Dr Escobedo Lumbar spondylosis 08/02/2012 9 Lumbago 07/03/2012 07/09/2019 Painful respiration 10/19/2008 08/21/20 13 Sprain of lumbosacral (joint) (ligament) 09/29/2008 07/09/2019 Concussion with no loss of consciousness 07/09/2019 Sprain of neck 07/09/2019 Sprain of thoracic region Disturbance of skin sensation 07/09/2019 documented as of this encounter (statuses as of 06/19/2023) [facility]2017 History of Past illness Narrative* Problem Noted Date Diagnosed Date Resolved Date Non-cardiac chest pain 04/03/201707/09 Overview: Added automatically from request for surgery [id number] Bright red rectal bleeding 07/29/2015 1 09/28/2014 Nausea 07/29/2015 07/29/2015 DDD (degenerative disc disease), lumbar 08/02/2012 07/09/2019 Last Assessment & Plan: Followed by nonC Dr Escobedo Lumbar spondylosis 08/02/2012 9 Lumbago 07/03/2012 07/09/2019 Painful respiration 10/19/2008 08/21/20 13 Sprain of lumbosacral (joint) (ligament) 09/29/2008 07/09/2019 Concussion with no loss of consciousness 07/09/2019 Sprain of neck 07/09/2019 Sprain of thoracic region Disturbance of skin sensation 07/09/2019 documented as of this encounter (statuses as of 07/02/2023) [facility] History of Past illness Narrative* Problem Noted Date Diagnosed Date Resolved Date Non-cardiac chest pain 04/03/201707/09 Overview: Added automatically from request for surgery [id number] Bright red rectal bleeding 07/29/2015 1 09/28/2014 Nausea 07/29/2015 07/29/2015 DDD (degenerative disc disease), lumbar 08/02/2012 07/09/2019 Last Assessment & Plan: Followed by nonC Dr Escobedo Lumbar spondylosis 08/02/2012 9 Lumbago 07/03/2012 07/09/2019 Painful respiration 10/19/2008 08/21/20 13 Sprain of lumbosacral (joint) (ligament) 09/29/2008 07/09/2019 Concussion with no loss of consciousness 07/09/2019 Sprain of neck 07/09/2019 Sprain of thoracic region Disturbance of skin sensation 07/09/2019 documented as of this encounter (statuses as of 07/17/2023) [facility] History of Past illness Narrative* Problem Noted Date Diagnosed Date Resolved Date Non-cardiac chest pain 04/03/201707/09 Overview: Added automatically from request for surgery [id number] Bright red rectal bleeding 07/29/2015 1 09/28/2014 Nausea 07/29/2015 07/29/2015 DDD (degenerative disc disease), lumbar 08/02/2012 07/09/2019 Last Assessment & Plan: Followed by nonC Dr Escobedo Lumbar spondylosis 08/02/2012 9 Lumbago 07/03/2012 07/09/2019 Painful respiration 10/19/2008 08/21/20 13 Sprain of lumbosacral (joint) (ligament) 09/29/2008 07/09/2019 Concussion with no loss of consciousness 07/09/2019 Sprain of neck 07/09/2019 Sprain of thoracic region Disturbance of skin sensation 07/09/2019 documented as of this encounter (statuses as of 07/30/2023) [facility] History of Past illness Narrative* Problem Noted Date Diagnosed Date Resolved Date Non-cardiac chest pain 04/03/201707/09 Overview: Added automatically from request for surgery [id number] Bright red rectal bleeding 07/29/2015 1 09/28/2014 Nausea 07/29/2015 07/29/2015 DDD (degenerative disc disease), lumbar 08/02/2012 07/09/2019 Last Assessment & Plan: Followed by nonC Dr Escobedo Lumbar spondylosis 08/02/2012 9 Lumbago 07/03/2012 07/09/2019 Painful respiration 10/19/2008 08/21/20 13 Sprain of lumbosacral (joint) (ligament) 09/29/2008 07/09/2019 Concussion with no loss of consciousness 07/09/2019 Sprain of neck 07/09/2019 Sprain of thoracic region Disturbance of skin sensation 07/09/2019 documented as of this encounter (statuses as of 08/04/2023) [facility] History of Past illness Narrative* Problem Noted Date Diagnosed Date Resolved Date Non-cardiac chest pain 04/03/201707/09 Overview: Added automatically from request for surgery [id number] Bright red rectal bleeding 07/29/2015 1 09/28/2014 Nausea 07/29/2015 07/29/2015 DDD (degenerative disc disease), lumbar 08/02/2012 07/09/2019 Last Assessment & Plan: Followed by nonC Dr Escobedo Lumbar spondylosis 08/02/2012 9 Lumbago 07/03/2012 07/09/2019 Painful respiration 10/19/2008 08/21/20 13 Sprain of lumbosacral (joint) (ligament) 09/29/2008 07/09/2019 Concussion with no loss of consciousness 07/09/2019 Sprain of neck 07/09/2019 Sprain of thoracic region Disturbance of skin sensation 07/09/2019 documented as of this encounter (statuses as of 08/16/2023) [facility] History of Past illness Narrative* Problem Noted Date Diagnosed Date Resolved Date Non-cardiac chest pain 04/03/201707/09 Overview: Added automatically from request for surgery [id number] Bright red rectal bleeding 07/29/2015 1 09/28/2014 Nausea 07/29/2015 07/29/2015 DDD (degenerative disc disease), lumbar 08/02/2012 07/09/2019 Last Assessment & Plan: Followed by [facility] Dr Escobedo Lumbar spondylosis 08/02/2012 9 Lumbago 07/03/2012 07/09/2019 Painful respiration 10/19/2008 08/21/20 13 Sprain of lumbosacral (joint) (ligament) 09/29/2008 07/09/2019 Concussion with no loss of consciousness 07/09/2019 Sprain of neck 07/09/2019 Sprain of thoracic region Disturbance of skin sensation 07/09/2019 documented as of this encounter (statuses as of 10/18/2023) [facility] History of Past illness Narrative* Problem Noted Date Diagnosed Date Resolved Date Non-cardiac chest pain 04/03/201707/09 Overview: Added automatically from request for surgery [id number] Bright red rectal bleeding 07/29/2015 1 09/28/2014 Nausea 07/29/2015 07/29/2015 DDD (degenerative disc disease), lumbar 08/02/2012 07/09/2019 Last Assessment & Plan: Followed by [facility] Dr Zadi Lumbar spondylosis 08/02/2012 9 Lumbago 07/03/2012 07/09/2019 Painful respiration 10/19/2008 08/21/20 13 Sprain of lumbosacral (joint) (ligament) 09/29/2008 07/09/2019 Concussion with no loss of consciousness 07/09/2019 Sprain of neck 07/09/2019 Sprain of thoracic region Disturbance of skin sensation 07/09/2019 documented as of this encounter (statuses as of 10/29/2023) [facility] note* Diagnosis Migraine variant Variants of migraine, not elsewhere classified, without mention of intractable migraine without mention of status migrainosus [facility] Diagnosis Migraine variant Variants of migraine, not elsewhere classified, without mention of intractable migraine without mention of status migrainosus [facility] Diagnosis Migraine variant Variants of migraine, not elsewhere classified, without mention of intractable migraine without mention of status migrainosus [facility] Diagnosis Migraine variant Variants of migraine, not elsewhere classified, without mention of intractable migraine without mention of status migrainosus [facility] Diagnosis Encounter for screening mammogram for breast cancer [facility] Diagnosis Other chronic back pain- Primary Migraine variant Variants of migraine, not elsewhere classified, without mention of intractable migraine without mention of status migrainosus Cervicalgia 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 Encounter for immunization Need for other specified prophylactic vaccination against single bacterial disease Special screening examination for viral disease Special screening examination for unspecified viral disease Screening for HIV (human immunodeficiency virus) Special screening examination for other specified viral diseases Screening for cervical cancer Screening for malignant neoplasm of the cervix Encounter for gynecological examination without abnormal finding Routine gynecological examination Gastroesophageal reflux disease, unspecified whether esophagitis present Hypercholesteremia Pure hypercholesterolemia Encounter for screening [facility] Diagnosis Osteopenia of multiple sites- Primary Encounter for screening for osteoporosis Special screening for osteoporosis Asymptomatic postmenopausal status [facility] Diagnosis Acute non-recurrent sinusitis, unspecified location- Primary documented in this encounter [facility] note* Diagnosis Nausea Nausea alone [facility] Hypercholesteremia- Primary Pure hypercholesterolemia Migraine variant Variants of migraine, not elsewhere classified, without mention of intractable migraine without mention of status migrainosus Gastroesophageal reflux disease, unspecified whether esophagitis present Mixed hyperlipidemia Pain in both upper extremities Popliteal pain Pain in limb 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 Osteopenia, unspecified location Encounter for long-term current use of medication documented in this encounter [facility] note* Diagnosis Diarrhea, unspecified type documented in this encounter [facility] note* Diagnosis Encounter for screening mammogram for breast cancer documented in this encounter [facility] note* Diagnosis Migraine variant- Primary Variants of migraine, not elsewhere classified, without mention of intractable migraine without mention of status migrainosus Encounter for immunization Need for other specified prophylactic vaccination against single bacterial disease Screening for cervical cancer Screening for malignant neoplasm of the cervix Hypercholesteremia Pure hypercholesterolemia Nausea Nausea alone Gastroesophageal reflux disease, unspecified whether esophagitis present Other chronic back pain 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 Cervicalgia 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 DDD (degenerative disc disease), lumbar Degeneration of lumbar or lumbosacral intervertebral disc Sprain of neck [facility] Sprain of thoracic region documented in this encounter [facility] [facility] Diagnosis Diarrhea, unspecified type documented in this encounter [facility] noteNo assessment information [facility]: [facility]* Diagnosis Diarrhea, unspecified type History of colonic polyps Personal history of colonic polyps documented in this encounter [facility] note* Diagnosis Diarrhea, unspecified type documented in this encounter [facility] note* Diagnosis Onset Date Resolution Status Inflammation acute Inflammation and stiffening of spine acute Osteopenia acute Weight loss, non-intentional acute Chronic back pain [facility] Work Phone: Evaluation note* Diagnosis Acute cough- Primary Cough Nasal drainage Other diseases of nasal cavity and sinuses Ear fullness, bilateral documented in this encounter [facility] note* Diagnosis Subacute sinusitis, unspecified location- Primary Acute [facility] Intractable chronic migraine without aura and without status migrainosus- Primary Chronic migraine without aura, with intractable migraine, so stated, without mention of status migrainosus Medication overuse headache Drug induced headache, not elsewhere classified Intractable chronic post-traumatic headache Chronic post-traumatic headache [facility] Diagnosis Encounter for screening mammogram for breast cancer [facility] Diagnosis Other chronic back pain- Primary Special screening examination for viral disease Special screening examination for unspecified viral disease Screening for HIV (human immunodeficiency virus) Special screening examination for other specified viral diseases Screening for cervical cancer Screening for malignant neoplasm of the cervix Encounter for immunization Need for other specified prophylactic vaccination against single bacterial disease 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 Acute cough Nasal drainage Other diseases of nasal cavity and sinuses Ear fullness, bilateral Other fatigue Cervical cancer screening Screening for malignant neoplasm of the cervix [facility]* Diagnosis Diarrhea, unspecified type Migraine variant Variants of migraine, not elsewhere classified, without mention of intractable migraine without mention of status migrainosus Nausea Nausea alone Gastroesophageal reflux disease, unspecified whether esophagitis present [facility]* Diagnosis Vitamin D deficiency- Primary Unspecified vitamin D deficiency [facility]* Diagnosis Thyroid enlarged- Primary Goiter, unspecified Pharyngeal dysphagia Dysphagia, pharyngeal phase [facility]* Diagnosis Pharyngeal dysphagia Dysphagia, pharyngeal phase [facility]* Diagnosis Gastroesophageal reflux disease, unspecified whether esophagitis present- Primary [facility]* Diagnosis Intractable chronic migraine without aura and without status migrainosus Chronic migraine without aura, with intractable migraine, so stated, without mention of status migrainosus Medication overuse headache Drug induced headache, not elsewhere classified Intractable chronic post-traumatic headache Chronic post-traumatic headache [facility]* Diagnosis Thoracic facet syndrome- Primary Other symptoms referable to back [facility] this [facility]* Diagnosis Dysphagia, unspecified type- Primary Gastroesophageal reflux disease, unspecified whether esophagitis present Left lower quadrant abdominal pain [facility]* Diagnosis Hypercholesteremia- Primary Pure hypercholesterolemia Screen for colon cancer Special screening for malignant neoplasms, colon Left lower quadrant abdominal pain [facility]* Diagnosis Hypercholesteremia- Primary Pure hypercholesterolemia Screen for colon cancer Special screening for malignant neoplasms, colon Diarrhea, unspecified type- Primary Gastroesophageal reflux disease, unspecified whether esophagitis present Dysphagia, unspecified type [facility]* Diagnosis Hypercholesteremia- Primary Pure hypercholesterolemia Screen for colon cancer Special screening for malignant neoplasms, colon Pharyngeal dysphagia Dysphagia, pharyngeal phase [facility]* Diagnosis Hypercholesteremia- Primary Pure hypercholesterolemia Screen for colon cancer Special screening for malignant neoplasms, colon Oropharyngeal dysphagia- Primary Dysphagia, oropharyngeal phase documented [facility] this [facility]* Diagnosis Hypercholesteremia- Primary Pure hypercholesterolemia Screen for colon cancer Special screening for malignant neoplasms, colon Acute cough Shortness of breath [facility]* Diagnosis Hypercholesteremia- Primary Pure hypercholesterolemia Screen for colon cancer Special screening for malignant neoplasms, colon Other chronic back pain Cervicalgia 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 [facility]* Diagnosis Hypercholesteremia- Primary Pure hypercholesterolemia Screen for colon cancer Special screening for malignant neoplasms, colon Pharyngeal dysphagia- Primary Dysphagia, pharyngeal phase DDD (degenerative disc disease), lumbar Degeneration of lumbar or lumbosacral intervertebral disc Nausea Nausea alone Other chronic back pain 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 Cervicalgia 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 Vitamin D deficiency Unspecified vitamin D deficiency Acute cough Nasal drainage Other diseases of nasal cavity and sinuses Migraine variant Variants of migraine, not elsewhere classified, without mention of intractable migraine without mention of status migrainosus Ear fullness, bilateral Encounter for immunization Need for other specified prophylactic vaccination against single bacterial disease [facility]* Diagnosis Hypercholesteremia- Primary Pure hypercholesterolemia Screen for colon cancer Special screening for malignant neoplasms, colon Acute non-recurrent pansinusitis- Primary [facility]* Diagnosis Hypercholesteremia- Primary Pure hypercholesterolemia Screen for colon cancer Special screening for malignant neoplasms, colon Encounter for gynecological examination (general) (routine) without abnormal findings- Primary Encounter for screening for human papillomavirus (HPV) Special screening examination for human papillomavirus (HPV) Pap smear for cervical cancer screening Screening for malignant neoplasm of the cervix Encounter for screening mammogram for breast cancer Pelvic pain in female Unspecified symptom associated with female genital organs [facility]* Diagnosis Hypercholesteremia- Primary Pure hypercholesterolemia Screen for colon cancer Special screening for malignant neoplasms, colon Subacute cough Cough documented [facility] this [facility]* Diagnosis Hypercholesteremia- Primary Pure hypercholesterolemia Screen for colon cancer Special screening for malignant neoplasms, colon Subacute cough- Primary Cough Subacute cough Cough documented [facility] this [facility]* Diagnosis Hypercholesteremia- Primary Pure hypercholesterolemia Screen for colon cancer Special screening for malignant neoplasms, colon Shortness of breath- Primary Acute cough Nausea and vomiting, unspecified vomiting type [facility]* Diagnosis Hypercholesteremia- Primary Pure hypercholesterolemia Screen for colon cancer Special screening for malignant neoplasms, colon Elevated LFTs- Primary Other abnormal blood chemistry Nausea and vomiting, unspecified vomiting type Elevated LFTs Other abnormal blood chemistry [facility]* Diagnosis Hypercholesteremia- Primary Pure hypercholesterolemia Screen for colon cancer Special screening for malignant neoplasms, colon Elevated LFTs Other abnormal blood chemistry [facility]* Diagnosis Hypercholesteremia- Primary Pure hypercholesterolemia Screen for colon cancer Special screening for malignant neoplasms, colon Pelvic pain in female Unspecified symptom associated with female genital organs [facility]* Diagnosis Hypercholesteremia- Primary Pure hypercholesterolemia Screen for colon cancer Special screening for malignant neoplasms, colon Elevated LFTs- Primary Other abnormal blood chemistry [facility]* Diagnosis Hypercholesteremia- Primary Pure hypercholesterolemia Screen for colon cancer Special screening for malignant neoplasms, colon Generalized abdominal pain- Primary Abdominal pain, generalized Intractable vomiting Persistent vomiting Upper respiratory tract infection, unspecified type documented in this encounter [facility] note* Diagnosis Hypercholesteremia- Primary Pure hypercholesterolemia Screen for colon cancer Special screening for malignant neoplasms, colon Nausea- Primary Nausea alone Nausea and vomiting, unspecified vomiting type documented in this encounter [facility] note* Diagnosis Hypercholesteremia- Primary Pure hypercholesterolemia Screen for colon cancer Special screening for malignant neoplasms, colon Acute non-recurrent sinusitis, unspecified location- Primary Watery eyes Epiphora, unspecified as to cause Dysphagia, unspecified type Gastroesophageal reflux disease, unspecified whether esophagitis present Nausea and vomiting, unspecified vomiting type [facility]* Diagnosis Hypercholesteremia- Primary Pure hypercholesterolemia Screen for colon cancer Special screening for malignant neoplasms, colon Nausea and vomiting, unspecified vomiting type [facility]* Diagnosis Hypercholesteremia- Primary Pure hypercholesterolemia Screen for colon cancer Special screening for malignant neoplasms, colon DDD (degenerative disc disease), lumbar Degeneration of lumbar or lumbosacral intervertebral disc Other chronic back pain 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 Cervicalgia 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 [facility]* Diagnosis Hypercholesteremia- Primary Pure hypercholesterolemia Screen for colon cancer Special screening for malignant neoplasms, colon Routine medical exam- Primary Routine general medical examination at a health care facility Chronic sinusitis, unspecified location Other chronic back pain 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 Migraine variant Variants of migraine, not elsewhere classified, without mention of intractable migraine without mention of status migrainosus [facility]* Diagnosis Hypercholesteremia- Primary Pure hypercholesterolemia Screen for colon cancer Special screening for malignant neoplasms, colon Acute cough Nasal drainage Other diseases of nasal cavity and sinuses Ear fullness, bilateral [facility]* Diagnosis Hypercholesteremia- Primary Pure hypercholesterolemia Screen for colon cancer Special screening for malignant neoplasms, colon Other chronic back pain- Primary Migraine variant Variants of migraine, not elsewhere classified, without mention of intractable migraine without mention of status migrainosus Bee sting allergy Allergy to insects and arachnids 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 Nausea Nausea alone Gastroesophageal reflux disease, unspecified whether esophagitis present Acute cough Essential (primary) hypertension Unspecified essential hypertension Seasonal allergic rhinitis due to other allergic trigger Hiatal hernia Diaphragmatic hernia without mention of obstruction or gangrene Encounter for screening mammogram for breast cancer [facility]* Diagnosis Hypercholesteremia- Primary Pure hypercholesterolemia Screen for colon cancer Special screening for malignant neoplasms, colon Migraine variant Variants of migraine, not elsewhere classified, without mention of intractable migraine without mention of status migrainosus Diarrhea, unspecified type Nausea Nausea alone Gastroesophageal reflux disease, unspecified whether esophagitis present Acute cough Nasal drainage Other diseases of nasal cavity and sinuses Ear fullness, bilateral Bee sting allergy Allergy to insects and arachnids DDD (degenerative disc disease), lumbar Degeneration of lumbar or lumbosacral intervertebral disc Other chronic back pain 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 Cervicalgia 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 Vitamin D deficiency Unspecified vitamin D deficiency [facility]* Diagnosis Hypercholesteremia- Primary Pure hypercholesterolemia Screen for colon cancer Special screening for malignant neoplasms, colon DDD (degenerative disc disease), lumbar- Primary Degeneration of lumbar or lumbosacral intervertebral disc Chronic bilateral low back pain without sciatica Cervicalgia Displacement of cervical intervertebral disc without myelopathy Migraine variant Variants of migraine, not elsewhere classified, without mention of intractable migraine without mention of status migrainosus Chronic diarrhea Diarrhea Chronic nausea Nausea alone Encounter for screening mammogram for breast cancer documented in this encounter [facility] note* Diagnosis Hypercholesteremia- Primary Pure hypercholesterolemia Screen for colon cancer Special screening for malignant neoplasms, colon Viral URI with cough- Primary Acute upper respiratory infections of unspecified site [facility]* Diagnosis Hypercholesteremia- Primary Pure hypercholesterolemia Screen for colon cancer Special screening for malignant neoplasms, colon Encounter for screening mammogram for breast cancer documented in this encounter [facility] note* Diagnosis Hypercholesteremia- Primary Pure hypercholesterolemia Screen for colon cancer Special screening for malignant neoplasms, colon Acute non-recurrent sinusitis, unspecified location- Primary documented in this encounter [facility] for referral (narrative)* Diagnostic Procedure Only (Routine) - Pending Review Specialty Diagnoses / Procedures Referred By Traci t Referred To Contact [facility] Diagnoses Encounter for screening mammogram for breast cancer Procedures JENNY SCREENING SCREENING MAMMOGRAPHY BI 2-VIEW BREAST INC CAD Akin Elliott MD [address] [place] [address] [facility] [place] [address] Referral ID Status Reason Start Date Expiration Date Visits Requested Visits Authorized [id number] Pending Review Auto-Generat ed Referral 03/08/2022 04/07/2023 1 1 [facility] for referral (narrative)* Diagnostic Procedure Only (Routine) - Pending Review Specialty Diagnoses / Procedures Referred By Stephac t Referred To Contact [facility] Diagnoses Encounter for screening mammogram for breast cancer Procedures JENNY SCREENING SCREENING MAMMOGRAPHY BI 2-VIEW BREAST INC Akin Mondragon MD [address] [place] [address] [facility] [address] [place] [address] Referral ID Status Reason Start Date Expiration Date Visits Requested Visits Authorized [id number] Pending Review Auto-Generat ed Referral 02/07/2023 03/08/2024 1 1 [facility] for referral (narrative)* Outpatient Procedure (Routine) - Pending Review Specialty Diagnoses / Procedures Referred By Contac t Referred To Contact [facility] Diagnoses Diarrhea, unspecified type Procedures COLONOSCOPY DIAGNOSTIC COLONOSCOPY FLX DX W/COLLJ SPEC WHEN PFHarriett Willard MD [address] [place] [address] [facility] [address] [place] [address] Referral ID Status Reason Start Date Expiration Date Visits Requested Visits Authorized [id number] Pending Review Auto-Generat ed Referral 06/18/2023 06/18/2024 1 1 T [facility] for referral (narrative)* Diagnostic Procedure Only (Routine) - Pending Review Specialty Diagnoses / Procedures Referred By Contac t Referred To Contact [facility] Diagnoses Encounter for screening mammogram for breast cancer Procedures JENNY SCREENING SCREENING MAMMOGRAPHY BI 2-VIEW BREAST INC Akin Mondragon MD [address] [place] [address] [facility] [address] [place] [address] Referral ID Status Reason Start Date Expiration Date Visits Requested Visits Authorized [id number] Pending Review Auto-Generat ed Referral 01/16/2024 02/14/2025 1 1 [facility] for referral (narrative)* Diagnostic Procedure Only (Routine) - Authorized Specialty Diagnoses / Procedures Referred By Contac t Referred To Contact [facility] Diagnoses Pharyngeal dysphagia Procedures US THYROID/PARATHYROID US SOFT TISSUE HEAD & NECK REAL TIME IMGE DOCM Cheyenne Gilbert APRN.CNP [address] [place] [address] [place] [address] Referral ID Status Reason Start Date Expiration Date Visits Requested Visits Authorized [id number] Authorized Auto-Generat ed Referral 03/19/2024 04/18/2025 1 1 * Diagnostic Procedure Only (Routine) - Authorized Specialty Diagnoses / Procedures [facility] To [facility] Diagnoses Pharyngeal dysphagia Procedures XR ESOPHAGRAM RADIOLOGIC EXAM ESOPHAGUS SINGLE CONTRAST STUDY Cheyenne Gilbert APRN.CNP [address] [place] [phone] [place] [address] Referral ID Status Reason Start Date Expiration Date Visits Requested Visits Authorized [id number] Authorized Auto-Generat ed Referral 03/19/2024 04/18/2025 1 1 [facility] for referral (narrative)* Diagnostic Procedure Only (Routine) - Closed Specialty Diagnoses / Procedures Referred By Contac t Referred To Contact [facility] Diagnoses Intractable chronic migraine without aura and without status migrainosus Medication overuse headache Intractable chronic post-traumatic headache Procedures MRI BRAIN WO/W IVCON MRI BRAIN BRAIN STEM W/O W/CONTRAST MATERIAL Eduardo Holden Jr., MD [address] [place] [id number] [place] [address] Referral ID Status Reason Start Date Expiration Date V isits Requested Visits Authorized [id number] Closed Auto-Generate d Referral 04/10/2024 09/09/2024 1 1 [facility] for referral (narrative)* Outpatient Procedure (Routine) - Authorized Specialty Diagnoses / Procedures Referred By Traci t Referred To Contact [facility] Diagnoses Gastroesophageal reflux disease, unspecified whether esophagitis present Dysphagia, unspecified type Procedures EGD DIAGNOSTIC ESOPHAGOGASTRODUODENOSC OPY TRANSORAL DIAGNOSTIC Amanda Powers APRN.[employer] TECHNICIAN [address] [place] [address] [address] Referral ID Status Reason Start Date Expiration Date Visits Requested Visits Authorized [id number] Authorized Auto-Generat ed Referral 04/23/2024 04/23/2025 1 1 * MRI/CT (Routine) - Additional Clinical Info Needed Specialty Diagnoses / Procedures Referred By Traci goyal Referred To Contact CT IMAGING Diagnoses Left lower quadrant abdominal pain Procedures CT ABD/PEL WO IVCON CT ABD & PELVIS W/O CONTRAST Amanda Powers APRN.[employer] TECHNICIAN [address] [place] [address] [place] [address] Referral ID Status Reason Start Date Expiration Date Visits Requested Visits Authorized [id number] Additional Clinical Info Needed Auto-Generat ed Referral 04/23/2024 05/23/2025 1 1 [facility] for referral (narrative)* Outpatient Procedure (Routine) - Closed Specialty Diagnoses / Procedures Referred By Traci goyal Referred To Contact [facility] Diagnoses Gastroesophageal reflux disease, unspecified whether esophagitis present Dysphagia, unspecified type Procedures EGD DIAGNOSTIC ESOPHAGOGASTRODUODENOSC OPY TRANSORAL DIAGNOSTIC Amanda Powers APRN.[employer] TECHNICIAN [address] [place] [address] [facility] [address] [place] [address] Referral ID Status Reason Start Date Expiration Date V isits Requested Visits Authorized [id number] Closed Auto-Generate d Referral 04/23/2024 04/23/2025 1 1 [facility] for referral (narrative)* Diagnostic Procedure Only (Routine) - Closed Specialty Diagnoses / Procedures Referred By Contac t Referred To Contact XR IMAGING Diagnoses Pharyngeal dysphagia Procedures XR ESOPHAGRAM RADIOLOGIC EXAM ESOPHAGUS SINGLE CONTRAST STUDY Cheyenne Gilbert APRN.[employer] TECHNICIAN [address] [place] [address] [place] [address] Referral ID Status Reason Start Date Expiration Date V isits Requested Visits Authorized [id number] Closed Auto-Generate d Referral 03/19/2024 04/18/2025 1 1 [facility] for referral (narrative)* Diagnostic Procedure Only (Routine) - Closed Specialty Diagnoses / Procedures Referred By Contac t Referred To Contact XR IMAGING Diagnoses Other chronic back pain Cervicalgia 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 Cervicothoracic disc displacement Procedures XR THORACIC GENERAL 3V AP/LAT/SWIMMERS RADEX SPINE THORACIC 3 VIEWS Carlee Tyler APRN.MANAGER WIND [address] [place] [address] [place] [address] Referral ID Status Reason Start Date Expiration Date V isits Requested Visits Authorized [id number] Closed Auto-Generate d Referral 03/24/2022 04/23/2023 1 1 * Diagnostic Procedure Only (Routine) - Closed Specialty Diagnoses / Procedures Referred By Contac t Referred To Contact XR IMAGING Diagnoses Other chronic back pain Cervicalgia 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 Cervicothoracic disc displacement Procedures XR CERV GENERAL 2V AP/LAT RADEX SPINE CERVICAL 2 OR 3 VIEWS Carlee Tyler, ABBY.MANAGER WIND [address] [place] [address] [place] [address] Referral ID Status Reason Start Date Expiration Date V isits Requested Visits Authorized [id number] Closed Auto-Generate d Referral 03/24/2022 04/23/2023 1 1 * Diagnostic Procedure Only (Routine) - Closed Specialty Diagnoses / Procedures Referred By Stephac t Referred To Contact XR IMAGING Diagnoses Other chronic back pain Cervicalgia 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 Cervicothoracic disc displacement Procedures XR LUMBAR GENERAL 3V AP/LAT/L5-S1 RADEX SPINE LUMBOSACRAL 2/3 VIEWS Carlee Tyler APRN.CNS [address] [place] [address] [place] [address] Referral ID Status Reason Start Date Expiration Date V isits Requested Visits Authorized [id number] Closed Auto-Generate d Referral 03/24/2022 04/23/2023 1 1 [facility] for referral (narrative)* Diagnostic Procedure Only (Routine) - Authorized Specialty Diagnoses / Procedures Referred By Traci t Referred To Contact [facility] Diagnoses Pelvic pain in female Procedures PELVIC US I US PELVIC NONOBSTETRIC REAL-TIME IMAGE COMPLETE Ev Finn APRN.[employer] TECHNICIAN [address] [place] [address] [facility] [address] [place] [address] Referral ID Status Reason Start Date Expiration Date Visits Requested Visits Authorized [id number] Authorized Auto-Generat ed Referral 08/01/2025 1 1 * Diagnostic Procedure Only (Routine) - New Request Specialty Diagnoses / Procedures Referred By Traci t Referred To Contact BR IMAGING Diagnoses Encounter for gynecological examination (general) (routine) without abnormal findings Encounter for screening mammogram for breast cancer Procedures JENNY SCREENING W EVENS SCREENING DIGITAL BREAST TOMOSYNTHESIS BI SCREENING MAMMOGRAPHY BI 2-VIEW BREAST INC CAD Ev Finn APRN.[employer] TECHNICIAN [address] [place] [address] [facility] [address] [place] [address] Referral ID Status Reason Start Date Expiration Date Visits Requested Visits Authorized [id number] New Request Auto-Generat ed Referral 4 08/31/2025 1 1 [facility] for referral (narrative)* Outpatient Procedure (Routine) - New Request Specialty Diagnoses / Procedures Referred By Contac t Referred To Contact [facility] [place] Diagnoses Shortness of breath Procedures ECG COMPLETE ECG ROUTINE ECG W/LEAST 12 LDS W/I&R Cecilia Sparks APRN.[employer] TECHNICIAN [address] [place] [address] [address] Referral ID Status Reason Start Date Expiration Date Visits Requested Visits Authorized [id number] New Request Auto-Generat ed Referral 4 08/04/2025 1 1 [facility] for referral (narrative)* Diagnostic Procedure Only (Urgent) - Closed Specialty Diagnoses / Procedures Referred By Contac t Referred To Contact US IMAGING Diagnoses Elevated LFTs Procedures US ABD RIGHT UPPER QUADRANT US ABDOMINAL REAL TIME W/IMAGE LIMITED Cecilia Sparks APRN.[employer] TECHNICIAN [address] [place] [address] [place] [address] Referral ID Status Reason Start Date Expiration Date V isits Requested Visits Authorized [id number] Closed Auto-Generate d Referral 08/05/2024 09/04/2025 1 1 [facility] for referral (narrative)* Diagnostic Procedure Only (Urgent) - Closed Specialty Diagnoses / Procedures Referred By Contac t Referred To Contact US IMAGING Diagnoses Elevated LFTs Procedures US ABD RIGHT UPPER QUADRANT US ABDOMINAL REAL TIME W/IMAGE LIMITED eCcilia Sparks APRN.[employer] TECHNICIAN [address] [place] [address] [place] [address] Referral ID Status Reason Start Date Expiration Date V isits Requested Visits Authorized [id number] Closed Auto-Generate d Referral 08/05/2024 09/04/2025 1 1 [facility] for referral (narrative)* Diagnostic Procedure Only (Routine) - Authorized Specialty Diagnoses / Procedures Referred By Contac t Referred To Contact MOLECULAR [facility]AL [facility] Diagnoses Nausea and vomiting, unspecified vomiting type Procedures NM GASTRIC EMPTYING SOLID GASTRIC EMPTYING STUDY Cecilia Sparks APRN.[employer] TECHNICIAN [address] [place] [address] Molecular [facility] Functional Imaging [address] [place] [address] Referral ID Status Reason Start Date Expiration Date Visits Requested Visits Authorized [id number] Authorized Auto-Generat ed Referral 08/15/2024 09/14/2025 1 1 [facility] for referral (narrative)* Diagnostic Procedure Only (Routine) - Closed Specialty Diagnoses / Procedures Referred By Contac t Referred To Contact MOLECULAR & FUNCTIONAL [facility]AGING Diagnoses Nausea and vomiting, unspecified vomiting type Procedures NM GASTRIC EMPTYING SOLID GASTRIC EMPTYING STUDY Cecilia Sparks APRN.[employer] TECHNICIAN [address] [place] [address] Molecular & Functional Imaging [address] [id number] Referral ID Status Reason Start Date Expiration Date V isits Requested Visits Authorized [id number] Closed Auto-Generate d Referral 08/15/2024 09/14/2025 1 1 [facility] for visit Narrative* Diagnostic Procedure Only (Routine) - Closed Specialty Diagnoses / Procedures Referred By Contac t Referred To Contact US IMAGING Diagnoses Pharyngeal dysphagia Procedures US THYROID/PARATHYROID US SOFT TISSUE HEAD & NECK REAL TIME IMGE DOCM Cheyenne Gilbert APRN.[employer] TECHNICIAN [address] [place] [address] [place] [address] Referral ID Status Reason Start Date Expiration Date V isits Requested Visits Authorized [id number] Closed Auto-Generate d Referral 03/19/2024 04/18/2025 1 1 [facility] for visit Narrative* Diagnostic Procedure Only (Routine) - Closed Specialty Diagnoses / Procedures [facility] To Contact MR IMAG[facility] Diagnoses Intractable chronic migraine without aura and without status migrainosus Medication overuse headache Intractable chronic post-traumatic headache Procedures MRI BRAIN WO/W IVCON MRI BRAIN BRAIN STEM W/O W/CONTRAST MATERIAL Eduardo Holden Jr., MD [address] [address] [facility] Referral ID Status Reason Start Date Expiration Date V isits Requested Visits Authorized [id number] Closed Auto-Generate d Referral 04/10/2024 09/09/2024 1 1 [facility] for visit Narrative* Outpatient Procedure (Routine) - Closed Specialty Diagnoses / Procedures [facility] To Contact [facility] Diagnoses Gastroesophageal reflux disease, unspecified whether esophagitis present Dysphagia, unspecified type Procedures EGD DIAGNOSTIC ESOPHAGOGASTRODUODENOSC OPY TRANSORAL DIAGNOSTIC Amanda Powers APRN.[employer] TECHNICIAN [address] [place] [address] [facility] [address] [place] [address] Referral ID Status Reason Start Date Expiration Date V isits Requested Visits Authorized [id number] Closed Auto-Generate d Referral 04/23/2024 04/23/2025 1 1 [facility] for visit Narrative* Diagnostic Procedure Only (Routine) - Closed Specialty Diagnoses / Procedures [facility] Referred To Contact XR IMAGING Diagnoses Pharyngeal dysphagia Procedures XR ESOPHAGRAM RADIOLOGIC EXAM ESOPHAGUS SINGLE CONTRAST STUDY Cheyenne Gilbert APRN.[employer] TECHNICIAN [address] [place] [address] [place] [address] Referral ID Status Reason Start Date Expiration Date V isits Requested Visits Authorized [id number] Closed Auto-Generate d Referral 03/19/2024 04/18/2025 1 1 [facility] for visit Narrative* Diagnostic Procedure Only (Routine) - Closed Specialty Diagnoses / Procedures Referred By Contac t Referred To Contact XR IMAGING Diagnoses Other chronic back pain Cervicalgia 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 Cervicothoracic disc displacement Procedures XR LUMBAR GENERAL 3V AP/LAT/L5-S1 RADEX SPINE LUMBOSACRAL 2/3 VIEWS Carlee Tyler, ENGINE MANAGER.MANAGER WIND [address] [place] [phone] [place] [address] Referral ID Status Reason Start Date Expiration Date V isits Requested Visits Authorized [id number] Closed Auto-Generate d Referral 03/24/2022 04/23/2023 1 1 [facility] for visit Narrative* Diagnostic Procedure Only (Urgent) - Closed Specialty Diagnoses / Procedures Referred By Contac t Referred To Contact US IMAGING Diagnoses Elevated LFTs Procedures US ABD RIGHT UPPER QUADRANT US ABDOMINAL REAL TIME W/IMAGE LIMITED Cecilia Sparks, ENGINE MANAGER.[employer] TECHNICIAN [address] [phone] [place] [address] Referral ID Status Reason Start Date Expiration Date V isits Requested Visits Authorized [id number] Closed Auto-Generate d Referral 08/05/2024 09/04/2025 1 1 [facility] for visit Narrative* Diagnostic Procedure Only (Routine) - Closed Specialty Diagnoses / Procedures Referred By Contac t Referred To Contact [facility] Diagnoses Pelvic pain in female Procedures PELVIC US WHI US PELVIC NONOBSTETRIC REAL-TIME IMAGE COMPLETE Ev Finn, ENGINE MANAGER.[employer] TECHNICIAN [address] [place] [phone] [facility] [address] [place] [address] Referral ID Status Reason Start Date Expiration Date V isits Requested Visits Authorized [id number] Closed Auto-Generate d Referral 08/01/2024 08/01/2025 1 1 [facility] Diagnostic Procedure Only (Routine) - Closed Specialty Diagnoses / Procedures Referred By Traci goyal Referred To Contact BR IMAG[facility] Diagnoses Encounter for screening mammogram for breast cancer Procedures JENNY SCREENING W EVENS SCREENING DIGITAL BREAST TOMOSYNTHESIS BI SCREENING MAMMOGRAPHY BI 2-VIEW BREAST INC CAD Cecilia Sparks, ENGINE MANAGER.[employer] PL[employer] TECHNICIAN [address] [place] [address] Phone: tel: fax: [facility] [address] [place] [address] Referral ID Status Reason Start Date Expiration Date V isits Requested Visits Authorized [id number] Closed Auto-Generate d Referral 05/04/2025 06/03/2026 1 1 [facility] Advance Directives No Advanced Directives Records FoundDocuments on File Type Date Recorded Patient Transportation Clerk Expl anation Advance Directive(s) 04/05/2017 7:48 AM Advance Directive(s) 01/22/2017 11:04 AM Documents on File Type Date Recorded Patient Transportation Clerk Expl anation Advance Directive(s) 04/05/2017 7:48 AM Advance Directive(s) 01/22/2017 11:04 AM Documents on File Type Date Recorded Patient Transportation Clerk Expl anation Advance Directive(s) 01/22/2017 11:04 AM Documents on File Type Date Recorded Patient Transportation Clerk Expl anation Advance Directive(s) 01/22/2017 11:04 AM Advance Directive Response Recorded Date/ Time Living Will No January 28, 2023 1 2:15pm Power of Solutions Delivery Consultant No January 28, 2023 12:15pm Advance Directive Response Recorded Date/ Time Living Will No May 25, 2023 5:15pm Power of Solutions Delivery Consultant No May 5:15pm Advance Directive Response Recorded Date/ Time Living Will No May 25, 2023 4:15pm Power of Solutions Delivery Consultant No May 4:15pm Reason for Referral Specialty Diagnoses / Procedures Referred By Traci goyal Referred To Contact Gynecology Diagnoses Screening for cervical cancer Encounter for gynecological examination without abnormal finding Procedures CONSULT TO GYNECOLOGY OFFICE/OUTPATIENT NEW HIGH MDM 60-74 MINUTES Carlee Tyler, ENGINE MANAGER.MANAGER WIND [address] [place] [address] Referral ID Status Reason Start Date Expiration Date Visits Requested Visits Authorized [id number] Authorized PCP Requested Referral Auto-Generate d Referral 03/24/2022 03/24/2023 1 1 Specialty Diagnoses / Procedures Referred By Contac t Referred To Contact XR IMAGING Diagnoses Other chronic back pain Cervicalgia 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 Cervicothoracic disc displacement Procedures XR LUMBAR GENERAL 3V AP/LAT/L5-S1 RADEX SPINE LUMBOSACRAL 2/3 VIEWS Carlee Tyler, ENGINE MANAGER.MANAGER WIND [address] [place] [address] X[facility] Imaging Referral ID Status Reason Start Date Expiration Date V isits Requested Visits Authorized [id number] Closed Auto-Generate d Referral 03/24/2022 04/23/2023 1 1 Specialty Diagnoses / Procedures Referred By Contac t Referred To Contact XR IMAGING Diagnoses Other chronic back pain Cervicalgia 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 Cervicothoracic disc displacement Procedures XR THORACIC GENERAL 3V AP/LAT/SWIMMERS RADEX SPINE THORACIC 3 VIEWS Carlee Tyler, ENGINE MANAGER.MANAGER WIND [address] [place] [address] X[facility] Imaging Referral ID Status Reason Start Date Expiration Date V isits Requested Visits Authorized [id number] Closed Auto-Generate d Referral 03/24/2022 04/23/2023 1 1 Specialty Diagnoses / Procedures Referred By Contac t Referred To Contact XR IMAGING Diagnoses Other chronic back pain Cervicalgia 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 Cervicothoracic disc displacement Procedures XR CERV GENERAL 2V AP/LAT RADEX SPINE CERVICAL 2 OR 3 VIEWS Carlee Tyler, ENGINE MANAGER.MANAGER WIND [address] [place] [address] X[facility] Imaging Referral ID Status Reason Start Date Expiration Date V isits Requested Visits Authorized [id number] Closed Auto-Generate d Referral 03/24/2022 04/23/2023 1 1 Specialty Diagnoses / Procedures Referred By Contac t Referred To Contact Pain Management Diagnoses Other chronic back pain Cervicalgia 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 Cervicothoracic disc displacement Procedures CONSULT TO PAIN MGT OFFICE/OUTPATIENT [facility] 60-74 MINUTES Carlee Tyler, ENGINE MANAGER.MANAGER WIND [address] [place] [address] Referral ID Status Reason Start Date Expiration Date Visits Requested Visits Authorized [id number] Authorized PCP Requested Referral 03/24/2022 03/24/2023 1 1 Specialty Diagnoses / Procedures Referred By Contac t Referred To Contact [facility] Diagnoses Other chronic back pain Cervicalgia 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 Cervicothoracic disc displacement Procedures CONSULT TO [facility] OFFICE/OUTPATIENT [facility] 60-74 MINUTES Carlee Tyler, ENGINE MANAGER.MANAGER WIND [address] [place] [address] Referral ID Status Reason Start Date Expiration Date Visits Requested Visits Authorized [id number] Authorized PCP Requested Referral 03/24/2022 03/24/2023 1 1 Specialty Diagnoses / Procedures Referred By Contac t Referred To Contact Pain Management Diagnoses Other chronic back pain 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 Cervicalgia Displacement of cervical intervertebral disc without myelopathy Cervicothoracic disc displacement DDD (degenerative disc disease), lumbar Procedures CONSULT TO PAIN MGT OFFICE/OUTPATIENT [facility] 60-74 MINUTES Carlee Tyler, ENGINE MANAGER.MANAGER WIND [address] [place] [address] Referral ID Status Reason Start Date Expiration Date Visits Requested Visits Authorized [id number] Authorized PCP Requested Referral 03/16/2023 03/15/2024 1 1 Specialty Diagnoses / Procedures Referred By Contac t Referred To Contact Diagnoses Screening for cervical cancer Procedures CONSULT TO COMPENSATION SUPERVISOR OFFICE/OUTPATIENT [facility] 60-74 MINUTES TylerCarlee obregon, ENGINE MANAGER.MANAGER WIND [address] [place] [address] Referral ID Status Reason Start Date Expiration Date Visits Requested Visits Authorized [id number] Authorized PCP Requested Referral Auto-Generate d Referral 03/16/2023 03/15/2024 1 1 Specialty Diagnoses / Procedures Referred By Contac t Referred To Contact Ent - Otolaryngology Diagnoses Subacute sinusitis, unspecified location Acute cough Procedures CONSULT TO ENT OFFICE/OUTPATIENT [facility] 60-74 MINUTES Carlee Tyler, ENGINE MANAGER.MANAGER WIND [address] [place] [address] Referral ID Status Reason Start Date Expiration Date Visits Requested Visits Authorized [id number] Authorized PCP Requested Referral 08/16/2023 08/15/2024 1 1 Specialty Diagnoses / Procedures Referred By Contac t Referred To Contact MR IMAGING Diagnoses Intractable chronic migraine without aura and without status migrainosus Medication overuse headache Intractable chronic post-traumatic headache Procedures MRI BRAIN WO/W IVCON MRI BRAIN BRAIN STEM W/O W/CONTRAST MATERIAL Eduardo Holden Jr., MD [address] [address] [place] [address] Referral ID Status Reason Start Date Expiration Date Visits Requested Visits Authorized [id number] Pending Review Auto-Generat ed Referral 10/29/2023 11/27/2024 1 1 Specialty Diagnoses / Procedures Referred By Contac t Referred To Contact Diagnoses Intractable chronic migraine without aura and without status migrainosus Medication overuse headache Procedures CONSULT TO HEADACHE CLINIC OFFICE/OUTPATIENT [facility] 60 MINUTES Eduardo Holden Jr., MD [address] [facility] [address] [place] [address] Referral ID Status Reason Start Date Expiration Date Visits Requested Visits Authorized [id number] Authorized PCP Requested Referral 10/29/2023 10/28/2024 1 1 Specialty Diagnoses / Procedures Referred By Contac t Referred To Contact Gynecology Diagnoses Cervical cancer screening Procedures CONSULT TO GYNECOLOGY OFFICE/OUTPATIENT [facility] 60 MINUTES TylerCarlee obregon, ENGINE MANAGER.MANAGER WIND [address] [place] [address] Referral ID Status Reason Start Date Expiration Date Visits Requested Visits Authorized [id number] Authorized PCP Requested Referral Auto-Generate d Referral 03/04/2024 03/04/2025 1 1 Specialty Diagnoses / Procedures Referred By Contac t Referred To Contact Pain Management Diagnoses Other chronic back pain Cervicothoracic disc displacement Procedures CONSULT TO PAIN MGT OFFICE/OUTPATIENT [facility] 60 MINUTES Carlee Tyler, ENGINE MANAGER.MANAGER WIND [address] [place] [address] Referral ID Status Reason Start Date Expiration Date Visits Requested Visits Authorized [id number] Authorized PCP Requested Referral 03/04/2024 03/04/2025 1 1 Specialty Diagnoses / Procedures Referred By Contac t Referred To Contact General Surgery Diagnoses Gastroesophageal reflux disease, unspecified whether esophagitis present Procedures CONSULT TO GENERAL SURGERY OFFICE/OUTPATIENT [facility] 60 MINUTES Cheyenne Gilbert, ENGINE MANAGER.BIOMASS PLANT TECHNICIAN [address] [place] [address] Referral ID Status Reason Start Date Expiration Date Visits Requested Visits Authorized [id number] Authorized PCP Requested Referral 04/07/2024 04/07/2025 1 1 Specialty Diagnoses / Procedures Referred By Contac t Referred To Contact Gastroenterology Diagnoses Oropharyngeal dysphagia Procedures CONSULT TO GASTROENTEROLOGY OFFICE/OUTPATIENT [facility] 60 MINUTES Amanda Powers, ENGINE MANAGER.BIOMASS PLANT TECHNICIAN [address] [place] [phone] Referral ID Status Reason Start Date Expiration Date Visits Requested Visits Authorized [id number] Authorized PCP Requested Referral 05/19/2024 05/14/2025 1 1 Specialty Diagnoses / Procedures Referred By Contac t Referred To Contact CT IMAGING Diagnoses Generalized abdominal pain Nausea Intractable vomiting Procedures CT ABD/PEL W IVCON CT ABD & PELVIS W/CONTRAST Cecilia Sparks, ENGINE MANAGER.BIOMASS PLANT TECHNICIAN [address] [place] [address] [place] [address] Referral ID Status Reason Start Date Expiration Date Visits Requested Visits Authorized [id number] New Request Auto-Generat ed Referral 08/14/2024 09/13/2025 1 1 Chief Complaint and Reason for Visit Chief Complaint cp Chief Complaint cp DIARRHEA Chief Complaint DIARRHEA LUMBAR SPINE Room 4 Room 4 EORDER Reason for Visit Inflammation Inflammation and stiffening of spine Osteopenia Weight loss, non-intentional Chronic back pain Chief Complaint DIARRHEA LUMBAR SPINE Room 4 Room 4 EORDER CHRONIC BACK PAIN Pain Reason for Visit Inflammation Inflammation and stiffening of spine Osteopenia Weight loss, non-intentional Chronic back pain Family History No Family History Records Found Relationship Condition Age at Onset Recorded Date/T michael Unknown Family History?- Unknown July 272017 10:42am Family History?- Unknown August 282017 10:04am Family History?Heart Disease Unknown August 28, 2018 10:04am Relationship Condition Age at Onset Recorded Date/T michael mother Cardiac disease Unknown Cerebrovascular accident (CVA) Unknown father Malignant neoplasm Unknown Summary Purpose Additional Source Comments Source Comments (unrecognize d section and content) In the event this informatio n is protected by the Federal Confidentiality of Alcohol and Drug Abuse Patient Records regulations: The Federal rules restrict any use of the information to criminally investigate or prosecute any alcohol or drug abuse patient.[facility] the event this information is protected by the Federal Confidentiality of Alcohol and Drug Abuse Patient Records regulations: The Federal rules restrict any use of the information to criminally investigate or prosecute any alcohol or drug abuse patient.[facility] Health[facility] the event this information is protected by the Federal Confidentiality of Alcohol and Drug Abuse Patient Records regulations: The Federal rules restrict any use of the information to criminally investigate or prosecute any alcohol or drug abuse patient.[facility] the event this information is protected by the Federal Confidentiality of Alcohol and Drug Abuse Patient Records regulations: The Federal rules restrict any use of the information to criminally investigate or prosecute any alcohol or drug abuse patient.[facility] HealthIn the event this information is protected by the Federal Confidentiality of Alcohol and Drug Abuse Patient Records regulations: The Federal rules restrict any use of the information to criminally investigate or prosecute any alcohol or drug abuse patient.[facility] HealthIn the event this information is protected by the Federal Confidentiality of Alcohol and Drug Abuse Patient Records regulations: The Federal rules restrict any use of the information to criminally investigate or prosecute any alcohol or drug abuse patient.[facility] HealthIn the event this information is protected by the Federal Confidentiality of Alcohol and Drug Abuse Patient Records regulations: The Federal rules restrict any use of the information to criminally investigate or prosecute any alcohol or drug abuse patient.[facility] HealthIn the event this information is protected by the Federal Confidentiality of Alcohol and Drug Abuse Patient Records regulations: The Federal rules restrict any use of the information to criminally investigate or prosecute any alcohol or drug abuse patient.[facility] HealthIn the event this information is protected by the Federal Confidentiality of Alcohol and Drug Abuse Patient Records regulations: The Federal rules restrict any use of the information to criminally investigate or prosecute any alcohol or drug abuse patient.[facility] the event this information is protected by the Federal Confidentiality of Alcohol and Drug Abuse Patient Records regulations: The Federal rules restrict any use of the information to criminally investigate or prosecute any alcohol or drug abuse patient.[facility] HealthIn the event this information is protected by the Federal Confidentiality of Alcohol and Drug Abuse Patient Records regulations: The Federal rules restrict any use of the information to criminally investigate or prosecute any alcohol or drug abuse patient.[facility] the event this information is protected by the Federal Confidentiality of Alcohol and Drug Abuse Patient Records regulations: The Federal rules restrict any use of the information to criminally investigate or prosecute any alcohol or drug abuse patient.[facility] HealthIn the event this information is protected by the Federal Confidentiality of Alcohol and Drug Abuse Patient Records regulations: The Federal rules restrict any use of the information to criminally investigate or prosecute any alcohol or drug abuse patient.[facility] HealthIn the event this information is protected by the Federal Confidentiality of Alcohol and Drug Abuse Patient Records regulations: The Federal rules restrict any use of the information to criminally investigate or prosecute any alcohol or drug abuse patient.[facility] HealthIn the event this information is protected by the Federal Confidentiality of Alcohol and Drug Abuse Patient Records regulations: The Federal rules restrict any use of the information to criminally investigate or prosecute any alcohol or drug abuse patient.[facility] HealthIn the event this information is protected by the Federal Confidentiality of Alcohol and Drug Abuse Patient Records regulations: The Federal rules restrict any use of the information to criminally investigate or prosecute any alcohol or drug abuse patient.[facility] HealthIn the event this information is protected by the Federal Confidentiality of Alcohol and Drug Abuse Patient Records regulations: The Federal rules restrict any use of the information to criminally investigate or prosecute any alcohol or drug abuse patient.[facility] HealthIn the event this information is protected by the Federal Confidentiality of Alcohol and Drug Abuse Patient Records regulations: The Federal rules restrict any use of the information to criminally investigate or prosecute any alcohol or drug abuse patient.[facility] HealthIn the event this information is protected by the Federal Confidentiality of Alcohol and Drug Abuse Patient Records regulations: The Federal rules restrict any use of the information to criminally investigate or prosecute any alcohol or drug abuse patient.[facility] HealthIn the event this information is protected by the Federal Confidentiality of Alcohol and Drug Abuse Patient Records regulations: The Federal rules restrict any use of the information to criminally investigate or prosecute any alcohol or drug abuse patient.[facility] HealthIn the event this information is protected by the Federal Confidentiality of Alcohol and Drug Abuse Patient Records regulations: The Federal rules restrict any use of the information to criminally investigate or prosecute any alcohol or drug abuse patient.[facility] HealthIn the event this information is protected by the Federal Confidentiality of Alcohol and Drug Abuse Patient Records regulations: The Federal rules restrict any use of the information to criminally investigate or prosecute any alcohol or drug abuse patient.[facility] HealthIn the event this information is protected by the Federal Confidentiality of Alcohol and Drug Abuse Patient Records regulations: The Federal rules restrict any use of the information to criminally investigate or prosecute any alcohol or drug abuse patient.[facility] HealthIn the event this information is protected by the Federal Confidentiality of Alcohol and Drug Abuse Patient Records regulations: The Federal rules restrict any use of the information to criminally investigate or prosecute any alcohol or drug abuse patient.[facility] HealthIn the event this information is protected by the Federal Confidentiality of Alcohol and Drug Abuse Patient Records regulations: The Federal rules restrict any use of the information to criminally investigate or prosecute any alcohol or drug abuse patient.[facility] HealthIn the event this information is protected by the Federal Confidentiality of Alcohol and Drug Abuse Patient Records regulations: The Federal rules restrict any use of the information to criminally investigate or prosecute any alcohol or drug abuse patient.[facility] HealthIn the event this information is protected by the Federal Confidentiality of Alcohol and Drug Abuse Patient Records regulations: The Federal rules restrict any use of the information to criminally investigate or prosecute any alcohol or drug abuse patient.[facility] HealthIn the event this information is protected by the Federal Confidentiality of Alcohol and Drug Abuse Patient Records regulations: The Federal rules restrict any use of the information to criminally investigate or prosecute any alcohol or drug abuse patient.[facility] HealthIn the event this information is protected by the Federal Confidentiality of Alcohol and Drug Abuse Patient Records regulations: The Federal rules restrict any use of the information to criminally investigate or prosecute any alcohol or drug abuse patient.[facility] HealthIn the event this information is protected by the Federal Confidentiality of Alcohol and Drug Abuse Patient Records regulations: The Federal rules restrict any use of the information to criminally investigate or prosecute any alcohol or drug abuse patient.[facility] HealthIn the event this information is protected by the Federal Confidentiality of Alcohol and Drug Abuse Patient Records regulations: The Federal rules restrict any use of the information to criminally investigate or prosecute any alcohol or drug abuse patient.[facility] HealthIn the event this information is protected by the Federal Confidentiality of Alcohol and Drug Abuse Patient Records regulations: The Federal rules restrict any use of the information to criminally investigate or prosecute any alcohol or drug abuse patient.[facility] HealthIn the event this information is protected by the Federal Confidentiality of Alcohol and Drug Abuse Patient Records regulations: The Federal rules restrict any use of the information to criminally investigate or prosecute any alcohol or drug abuse patient.[facility] HealthIn the event this information is protected by the Federal Confidentiality of Alcohol and Drug Abuse Patient Records regulations: The Federal rules restrict any use of the information to criminally investigate or prosecute any alcohol or drug abuse patient.[facility] HealthIn the event this information is protected by the Federal Confidentiality of Alcohol and Drug Abuse Patient Records regulations: The Federal rules restrict any use of the information to criminally investigate or prosecute any alcohol or drug abuse patient.[facility] HealthIn the event this information is protected by the Federal Confidentiality of Alcohol and Drug Abuse Patient Records regulations: The Federal rules restrict any use of the information to criminally investigate or prosecute any alcohol or drug abuse patient.[facility] HealthIn the event this information is protected by the Federal Confidentiality of Alcohol and Drug Abuse Patient Records regulations: The Federal rules restrict any use of the information to criminally investigate or prosecute any alcohol or drug abuse patient.[facility] HealthIn the event this information is protected by the Federal Confidentiality of Alcohol and Drug Abuse Patient Records regulations: The Federal rules restrict any use of the information to criminally investigate or prosecute any alcohol or drug abuse patient.[facility] HealthIn the event this information is protected by the Federal Confidentiality of Alcohol and Drug Abuse Patient Records regulations: The Federal rules restrict any use of the information to criminally investigate or prosecute any alcohol or drug abuse patient.[facility] HealthIn the event this information is protected by the Federal Confidentiality of Alcohol and Drug Abuse Patient Records regulations: The Federal rules restrict any use of the information to criminally investigate or prosecute any alcohol or drug abuse patient.[facility] HealthIn the event this information is protected by the Federal Confidentiality of Alcohol and Drug Abuse Patient Records regulations: The Federal rules restrict any use of the information to criminally investigate or prosecute any alcohol or drug abuse patient.[facility] HealthIn the event this information is protected by the Federal Confidentiality of Alcohol and Drug Abuse Patient Records regulations: The Federal rules restrict any use of the information to criminally investigate or prosecute any alcohol or drug abuse patient.[facility] HealthIn the event this information is protected by the Federal Confidentiality of Alcohol and Drug Abuse Patient Records regulations: The Federal rules restrict any use of the information to criminally investigate or prosecute any alcohol or drug abuse patient.[facility] HealthIn the event this information is protected by the Federal Confidentiality of Alcohol and Drug Abuse Patient Records regulations: The Federal rules restrict any use of the information to criminally investigate or prosecute any alcohol or drug abuse patient.[facility] HealthIn the event this information is protected by the Federal Confidentiality of Alcohol and Drug Abuse Patient Records regulations: The Federal rules restrict any use of the information to criminally investigate or prosecute any alcohol or drug abuse patient.[facility] HealthIn the event this information is protected by the Federal Confidentiality of Alcohol and Drug Abuse Patient Records regulations: The Federal rules restrict any use of the information to criminally investigate or prosecute any alcohol or drug abuse patient.[facility] the event this information is protected by the Federal Confidentiality of Alcohol and Drug Abuse Patient Records regulations: The Federal rules restrict any use of the information to criminally investigate or prosecute any alcohol or drug abuse patient.[facility] HealthIn the event this information is protected by the Federal Confidentiality of Alcohol and Drug Abuse Patient Records regulations: The Federal rules restrict any use of the information to criminally investigate or prosecute any alcohol or drug abuse patient.[facility] HealthIn the event this information is protected by the Federal Confidentiality of Alcohol and Drug Abuse Patient Records regulations: The Federal rules restrict any use of the information to criminally investigate or prosecute any alcohol or drug abuse patient.[facility] HealthIn the event this information is protected by the Federal Confidentiality of Alcohol and Drug Abuse Patient Records regulations: The Federal rules restrict any use of the information to criminally investigate or prosecute any alcohol or drug abuse patient.[facility] HealthIn the event this information is protected by the Federal Confidentiality of Alcohol and Drug Abuse Patient Records regulations: The Federal rules restrict any use of the information to criminally investigate or prosecute any alcohol or drug abuse patient.[facility] HealthIn the event this information is protected by the Federal Confidentiality of Alcohol and Drug Abuse Patient Records regulations: The Federal rules restrict any use of the information to criminally investigate or prosecute any alcohol or drug abuse patient.[facility] HealthIn the event this information is protected by the Federal Confidentiality of Alcohol and Drug Abuse Patient Records regulations: The Federal rules restrict any use of the information to criminally investigate or prosecute any alcohol or drug abuse patient.[facility] HealthIn the event this information is protected by the Federal Confidentiality of Alcohol and Drug Abuse Patient Records regulations: The Federal rules restrict any use of the information to criminally investigate or prosecute any alcohol or drug abuse patient.[facility] HealthIn the event this information is protected by the Federal Confidentiality of Alcohol and Drug Abuse Patient Records regulations: The Federal rules restrict any use of the information to criminally investigate or prosecute any alcohol or drug abuse patient.[facility] HealthIn the event this information is protected by the Federal Confidentiality of Alcohol and Drug Abuse Patient Records regulations: The Federal rules restrict any use of the information to criminally investigate or prosecute any alcohol or drug abuse patient.[facility] HealthIn the event this information is protected by the Federal Confidentiality of Alcohol and Drug Abuse Patient Records regulations: The Federal rules restrict any use of the information to criminally investigate or prosecute any alcohol or drug abuse patient.[facility] HealthIn the event this information is protected by the Federal Confidentiality of Alcohol and Drug Abuse Patient Records regulations: The Federal rules restrict any use of the information to criminally investigate or prosecute any alcohol or drug abuse patient.[facility] HealthIn the event this information is protected by the Federal Confidentiality of Alcohol and Drug Abuse Patient Records regulations: The Federal rules restrict any use of the information to criminally investigate or prosecute any alcohol or drug abuse patient.[facility] HealthIn the event this information is protected by the Federal Confidentiality of Alcohol and Drug Abuse Patient Records regulations: The Federal rules restrict any use of the information to criminally investigate or prosecute any alcohol or drug abuse patient.[facility] HealthIn the event this information is protected by the Federal Confidentiality of Alcohol and Drug Abuse Patient Records regulations: The Federal rules restrict any use of the information to criminally investigate or prosecute any alcohol or drug abuse patient.[facility] HealthIn the event this information is protected by the Federal Confidentiality of Alcohol and Drug Abuse Patient Records regulations: The Federal rules restrict any use of the information to criminally investigate or prosecute any alcohol or drug abuse patient.[facility] HealthIn the event this information is protected by the Federal Confidentiality of Alcohol and Drug Abuse Patient Records regulations: The Federal rules restrict any use of the information to criminally investigate or prosecute any alcohol or drug abuse patient.[facility] HealthIn the event this information is protected by the Federal Confidentiality of Alcohol and Drug Abuse Patient Records regulations: The Federal rules restrict any use of the information to criminally investigate or prosecute any alcohol or drug abuse patient.[facility] HealthIn the event this information is protected by the Federal Confidentiality of Alcohol and Drug Abuse Patient Records regulations: The Federal rules restrict any use of the information to criminally investigate or prosecute any alcohol or drug abuse patient.[facility] HealthIn the event this information is protected by the Federal Confidentiality of Alcohol and Drug Abuse Patient Records regulations: The Federal rules restrict any use of the information to criminally investigate or prosecute any alcohol or drug abuse patient.[facility] HealthIn the event this information is protected by the Federal Confidentiality of Alcohol and Drug Abuse Patient Records regulations: The Federal rules restrict any use of the information to criminally investigate or prosecute any alcohol or drug abuse patient.[facility] HealthIn the event this information is protected by the Federal Confidentiality of Alcohol and Drug Abuse Patient Records regulations: The Federal rules restrict any use of the information to criminally investigate or prosecute any alcohol or drug abuse patient.[facility] HealthIn the event this information is protected by the Federal Confidentiality of Alcohol and Drug Abuse Patient Records regulations: The Federal rules restrict any use of the information to criminally investigate or prosecute any alcohol or drug abuse patient.[facility] HealthIn the event this information is protected by the Federal Confidentiality of Alcohol and Drug Abuse Patient Records regulations: The Federal rules restrict any use of the information to criminally investigate or prosecute any alcohol or drug abuse patient.[facility] HealthIn the event this information is protected by the Federal Confidentiality of Alcohol and Drug Abuse Patient Records regulations: The Federal rules restrict any use of the information to criminally investigate or prosecute any alcohol or drug abuse patient.[facility] HealthIn the event this information is protected by the Federal Confidentiality of Alcohol and Drug Abuse Patient Records regulations: The Federal rules restrict any use of the information to criminally investigate or prosecute any alcohol or drug abuse patient.[facility] HealthIn the event this information is protected by the Federal Confidentiality of Alcohol and Drug Abuse Patient Records regulations: The Federal rules restrict any use of the information to criminally investigate or prosecute any alcohol or drug abuse patient.[facility] HealthIn the event this information is protected by the Federal Confidentiality of Alcohol and Drug Abuse Patient Records regulations: The Federal rules restrict any use of the information to criminally investigate or prosecute any alcohol or drug abuse patient.[facility] HealthIn the event this information is protected by the Federal Confidentiality of Alcohol and Drug Abuse Patient Records regulations: The Federal rules restrict any use of the information to criminally investigate or prosecute any alcohol or drug abuse patient.[facility] HealthIn the event this information is protected by the Federal Confidentiality of Alcohol and Drug Abuse Patient Records regulations: The Federal rules restrict any use of the information to criminally investigate or prosecute any alcohol or drug abuse patient.[facility] HealthIn the event this information is protected by the Federal Confidentiality of Alcohol and Drug Abuse Patient Records regulations: The Federal rules restrict any use of the information to criminally investigate or prosecute any alcohol or drug abuse patient.[facility] HealthIn the event this information is protected by the Federal Confidentiality of Alcohol and Drug Abuse Patient Records regulations: The Federal rules restrict any use of the information to criminally investigate or prosecute any alcohol or drug abuse patient.[facility] HealthIn the event this information is protected by the Federal Confidentiality of Alcohol and Drug Abuse Patient Records regulations: The Federal rules restrict any use of the information to criminally investigate or prosecute any alcohol or drug abuse patient.[facility] HealthIn the event this information is protected by the Federal Confidentiality of Alcohol and Drug Abuse Patient Records regulations: The Federal rules restrict any use of the information to criminally investigate or prosecute any alcohol or drug abuse patient.[facility] HealthIn the event this information is protected by the Federal Confidentiality of Alcohol and Drug Abuse Patient Records regulations: The Federal rules restrict any use of the information to criminally investigate or prosecute any alcohol or drug abuse patient.[facility] HealthIn the event this information is protected by the Federal Confidentiality of Alcohol and Drug Abuse Patient Records regulations: The Federal rules restrict any use of the information to criminally investigate or prosecute any alcohol or drug abuse patient.[facility] HealthIn the event this information is protected by the Federal Confidentiality of Alcohol and Drug Abuse Patient Records regulations: The Federal rules restrict any use of the information to criminally investigate or prosecute any alcohol or drug abuse patient.[facility] Reason for Visit (unrecogniz ed section and content) Reason Comments Refill Request Reason Onset Date Comments Refill Request 01/16/2022 Reason Onset Date Comments Refill Request 01/17/2022 Reason Comments Medication Request Refill Request Reason Onset Date Comments Refill Request 02/28/2022 Reason Comments Follow Up Reason Comments Patient Question results XR Reason Comments Results, Lab Reason Comments Nasal Congestion drainage, diarrhea, cough, chills, sore throat, fever and ear pain x 1 month Reason Comments URI symptoms Reason Onset Date Comments Refill Request 07/31/2022 Reason Comments Population Health Navigation Outreach Reason Comments F/U 6 months Reason Comments F/U 6 Month Reason Onset Date Comments Refill Request 03/19/2023 Reason Comments Results Reason Comments Consult Diarrhea, colonoscop y consult [facility] ER visit 05/25/23 CT scan done requested images to be pushed Specialty Diagnoses / Procedures Referred By Stephac t Referred To Contact General Surgery Diagnoses Diarrhea, unspecified type Procedures CONSULT TO GENERAL SURGERY OFFICE/OUTPATIENT [facility] 60-74 MINUTES Carlee Tyler, ENGINE MANAGER.MANAGER WIND [address] [place] [address] Referral ID Status Reason Start Date Expiration Date V isits Requested Visits Authorized [id number] Closed PCP Requested Referral 06/01/2023 05/31/2024 1 1 Reason Onset Date Comments Refill Request 06/29/2023 Reason Comments Sinusitis Cough Reason Comments Patient Update Reason Comments Sinusitis Reason Comments Medication Question Reason Comments New Patient Evaluation Reason Comments Returning Patient's Call Reason Comments Medication Problem Reason Comments Throat Problem Reason Comments trouble swallowing noted lumps under ch in.states lumps make her cough and feels that she is clearing her throat oftenVoice has changed Reason Comments Results Reason Comments New Patient Back Pain Neck Pain Reason Comments Injections Reason Comments Consult EGD consultation. Specialty Diagnoses / Procedures Referred By Traci t Referred To Contact General Surgery Diagnoses Gastroesophageal reflux disease, unspecified whether esophagitis present Procedures CONSULT TO GENERAL SURGERY OFFICE/OUTPATIENT [facility] 60 MINUTES Cheyenne Gilbert, ENGINE MANAGER.[employer] TECHNICIAN [address] [place] [address] Referral ID Status Reason Start Date Expiration Date V isits Requested Visits Authorized [id number] Closed PCP Requested Referral 04/07/2024 04/07/2025 [address] Specialty Diagnoses / Procedures Referred By Contac t Referred To Contact CT IMAGING Diagnoses Left lower quadrant abdominal pain Procedures CT ABD/PEL WO IVCON CT ABD & PELVIS W/O CONTRAST Amanda Powers, ENGINE MANAGER.[employer] TECHNICIAN [address] [place] [address] [place] [address] Referral ID Status Reason Start Date Expiration Date V isits Requested Visits Authorized [id number] Closed Auto-Generate d Referral 04/25/2024 09/09/2024 1 1 Specialty Diagnoses / Procedures Referred By Contac t Referred To Contact CT IMAGING Diagnoses Left lower quadrant abdominal pain Procedures CT ABD/PEL WO IVCON CT ABD & PELVIS W/O CONTRAST Amanda Powers, ENGINE MANAGER.[employer] TECHNICIAN [address] [place] [address] [facility] Reason Comments Follow Up EGD f/u Reason Comments F/U 3 Month Reason Comments Fatigue started about 1 week nasal drainage is very thin with throat congestionssneezing watery eyes Reason Onset Date Comments Refill Request 07/08/2024 Reason Comments Well Woman Reason Comments Sinus Problem Reason Comments Follow Up still not feeling we ll, nausea,stomach ache left side, wants letter stating she is not contagious Reason Comments Appointment Patient Update Reason Comments ED Follow-up Reason Comments Radiology [place] Specialty Diagnoses / Procedures Referred By Traci t Referred To Contact MOLECULAR & FUNCTIONAL IMAGING Diagnoses Nausea and vomiting, unspecified vomiting type Procedures NM GASTRIC EMPTYING SOLID GASTRIC EMPTYING STUDY Cecilia Sparks, ENGINE MANAGER.[employer] TECHNICIAN [address] [place] [address] Molecular & Functional Imaging [address] [place] [id number] Referral ID Status Reason Start Date Expiration Date V isits Requested Visits Authorized [id number] Closed Auto-Generate d Referral 08/15/2024 09/14/2025 1 1 Reason Comments Patient Question Reason Comments Yearly Exam Reason Onset Date Comments Refill Request 10/29/2024 Reason Onset Date Comments Refill Request 12/16/2024 Reason Comments F/U 3 Month Reason Onset Date Comments Refill Request 02/12/2025 Reason Comments F/U 6 Month Reason Comments Cough Cough, bilateral ear pressure, nausea, fatigue x 3-4 days Reason Comments Recheck Not feeling any bett er Reason Comments Medication Request Pt still feeling ill Care Teams (unrecognized sec tion and content) Occupational Therapy Professor Relationship Specialty Start Date End Date Akin Elliott MD [address] [place] [address] PCP - General 08/17/04 Occupational Therapy Professor Relationship Specialty Start Date End Date Akin Elliott MD [facility] [place] [address] PCP - General 08/17/04 Occupational Therapy Professor Relationship Specialty Start Date End Date Akin Elliott MD [address] [place] [address], [place] [address] PCP - General 08/17/04 Occupational Therapy Professor Relationship Specialty Start Date End Date Akin Elliott MD [address] [place] [address], [place] [address] PCP - General 08/17/04 Occupational Therapy Professor Relationship Specialty Start Date End Date Akin Elliott MD [address] [place] [address], [place] [address] PCP - General 08/17/04 Occupational Therapy Professor Relationship Specialty Start Date End Date Akin Elliott MD [address] [place] [address], [place] [address] PCP - General 08/17/04 Occupational Therapy Professor Relationship Specialty Start Date End Date Akin Elliott MD [address] [place] [address], [place] [address] PCP - General 08/17/04 Occupational Therapy Professor Relationship Specialty Start Date End Date Akin Elliott MD [address] [place] [address], [place] [address] PCP - General 08/17/04 Occupational Therapy Professor Relationship Specialty Start Date End Date Akin Elliott MD [address] [place] [address], [place] [address] PCP - General 08/17/04 Occupational Therapy Professor Relationship Specialty Start Date End Date Akin Elliott MD [address] [place] [address], [place] [address] PCP - General 08/17/04 Occupational Therapy Professor Relationship Specialty Start Date End Date Akin Elliott MD [address] [place] [address] PCP - General 08/17/04 Occupational Therapy Professor Relationship Specialty Start Date End Date Akin Elliott MD [address] [place] [address] PCP - General 08/17/04 Occupational Therapy Professor Relationship Specialty Start Date End Date Akin Elliott MD [address] [place] [address] PCP - General 08/17/04 Occupational Therapy Professor Relationship Specialty Start Date End Date Akin Elliott MD [address] [place] [address] PCP - General 08/17/04 Occupational Therapy Professor Relationship Specialty Start Date End Date Akin Elliott MD [address] [place], [place] [address] PCP - General 08/17/04 Team Status: Active Member Role Status Dates Akin HADLEY MD Family Provider Active Dr. Akin Elliott MD Primary Care Provider Active Team Status: Inactive Member Role Status Dates Dr. Akin Elliott MD Primary Care Provider Active Dr. Mina Yin MD Attending Provider, Emergency Provider Active Team Status: Inactive Member Role Status Dates Dr. Akin Elliott MD Primary Care Provider Active Dr. Dani Zhang MD Attending Provider, Referring Pr ovider Active Team Status: Inactive Member Role Status Dates Dr. Akin Elliott MD Primary Care Provider Active Dr. Blaise Diaz DO Emergency Provider Active Occupational Therapy Professor Relationship Specialty Start Date End Date Akin Elliott MD [address] [place], [place] [address] PCP - General 08/17/04 Occupational Therapy Professor Relationship Specialty Start Date End Date Akin Elliott MD [address] [place] [address] PCP - General 08/17/04 Occupational Therapy Professor Relationship Specialty Start Date End Date Akin Elliott MD [address] [place] [address] PCP - General 08/17/04 Team Status: Inactive Member Role Status Dates Dr. Akin Elliott MD Primary Care Provider, Referr ing Provider Active Dr. Heber Milton DO Attending Provider Active Team Status: Inactive Member Role Status Dates Dr. Akin Elliott MD Primary Care Provider Active Dr. Duncan Haney MD Attending Provider Active Team Status: Inactive Member Role Status Dates Dr. Akin Elliott MD Primary Care Provider Active Dr. Blaise Diaz DO Attending Provider, Emergency Provider Active Team Status: Inactive Member Role Status Dates Dr. Akin Elliott MD Primary Care Provider Active Dr. Heber Milton DO Attending Provider, Referring P rovider Active Occupational Therapy Professor Relationship Specialty Start Date End Date Akin Elliott MD [address] [place] [address] PCP - General 08/17/04 Occupational Therapy Professor Relationship Specialty Start Date End Date Akin Elliott MD [address] [place] [address] PCP - General 08/17/04 Team Status: Active Member Role Status Dates Dr. Akin Elliott MD Primary Care Provider Active Dr. Heber Milton DO Attending Provider, Referring P rovider Active Occupational Therapy Professor Relationship Specialty Start Date End Date Akin Elliott MD [address] [place] [address] PCP - General 08/17/04 Occupational Therapy Professor Relationship Specialty Start Date End Date Akin Elliott MD [address] [place] [address] PCP - General 08/17/04 Occupational Therapy Professor Relationship Specialty Start Date End Date Akin Elliott MD [address] [place] [address] PCP - General 08/17/04 Occupational Therapy Professor Relationship Specialty Start Date End Date Akin Elliott MD [address] [place] [address] PCP - General 08/17/04 Occupational Therapy Professor Relationship Specialty Start Date End Date Akin Elliott MD [address] [place] [address] PCP - General 08/17/04 Occupational Therapy Professor Relationship Specialty Start Date End Date Akin Elliott MD [address] [place] [address] PCP - General 08/17/04 Occupational Therapy Professor Relationship Specialty Start Date End Date Akin Elliott MD [address] [place] [address] PCP - General 08/17/04 Occupational Therapy Professor Relationship Specialty Start Date End Date Akin Elliott MD [address] [place] [address] PCP - General 08/17/04 Occupational Therapy Professor Relationship Specialty Start Date End Date Akin Elliott MD [address] [place] [address] PCP - General 08/17/04 Occupational Therapy Professor Relationship Specialty Start Date End Date Akin Elliott MD [address] [place] [address] PCP - General 08/17/04 Occupational Therapy Professor Relationship Specialty Start Date End Date Akin Elliott MD [address] [place] [address] PCP - General 08/17/04 Occupational Therapy Professor Relationship Specialty Start Date End Date Akin Elliott MD [address] [place] [address] PCP - General 08/17/04 Occupational Therapy Professor Relationship Specialty Start Date End Date Akin Elliott MD [address] [place] [address] PCP - General 08/17/04 Occupational Therapy Professor Relationship Specialty Start Date End Date Akin Elliott MD [address] [place] [address] PCP - General 08/17/04 Occupational Therapy Professor Relationship Specialty Start Date End Date Akin Elliott MD [address] [place] [address] PCP - General 08/17/04 Occupational Therapy Professor Relationship Specialty Start Date End Date Akin Elliott MD [address] [place] [address] PCP - General 08/17/04 Occupational Therapy Professor Relationship Specialty Start Date End Date Akin Elliott MD [address] [place] [address] PCP - General 08/17/04 Occupational Therapy Professor Relationship Specialty Start Date End Date Akin Elliott MD [address] [place] [address] PCP - General 08/17/04 Occupational Therapy Professor Relationship Specialty Start Date End Date Akin Elliott MD [address] [place] [address] PCP - General 08/17/04 Occupational Therapy Professor Relationship Specialty Start Date End Date Akin Elliott MD [address] [place] [address] PCP - General 08/17/04 Occupational Therapy Professor Relationship Specialty Start Date End Date Akin Elliott MD [address] [place] [address] PCP - General 08/17/04 Occupational Therapy Professor Relationship Specialty Start Date End Date Akin Elliott MD [address] [place] [address] PCP - General 08/17/04 Occupational Therapy Professor Relationship Specialty Start Date End Date Akin Elliott MD [address] [place] [address] PCP - General 08/17/04 Occupational Therapy Professor Relationship Specialty Start Date End Date Akin Elliott MD [address] [place] [address] PCP - General 08/17/04 Occupational Therapy Professor Relationship Specialty Start Date End Date Akin Elliott MD [address] [place] [address] PCP - General 08/17/04 Occupational Therapy Professor Relationship Specialty Start Date End Date Akin Elliott MD [address] [place] [address] PCP - General 08/17/04 Carlee Tyler, ENGINE MANAGER.MANAGER WIND [address] [place] [address] Staff Development Educator Internal Medicine 08/18/24 Cheyenne Gilbert ENGINE MANAGER.BIOMASS PLANT TECHNICIAN [address] [place] [address] Staff Development Educator Internal Medicine 08/18/24 Occupational Therapy Professor Relationship Specialty Start Date End Date Akin Elliott MD [address] [place] [address] PCP - General 08/17/04 Carlee Tyler, ENGINE MANAGER.MANAGER WIND [address] [place] [address] Staff Development Educator Internal Medicine 08/18/24 Cheyenne Gilbert ENGINE MANAGER.BIOMASS PLANT TECHNICIAN [address] [place] [address] Staff Development Educator Internal Medicine 08/18/24 Occupational Therapy Professor Relationship Specialty Start Date End Date Akin Elliott MD [address] [place] [address] PCP - General 08/17/04 Carlee Tyler, ENGINE MANAGER.MANAGER WIND [address] [place] [address] Staff Development Educator Internal Medicine 08/18/24 Cheyenne Gilbert APRN.BIOMASS PLANT TECHNICIAN [address] [place] [address] Staff Development Educator Internal Medicine 08/18/24 Occupational Therapy Professor Relationship Specialty Start Date End Date Akin Elliott MD [address] [place] [address] PCP - General 08/17/04 Carlee Tyler APRN.MANAGER WIND [address] [place] [address] Staff Development Educator Internal Medicine 08/18/24 Cheyenne Gilbert APRN.BIOMASS PLANT TECHNICIAN [address] [place] [address] Staff Development Educator Internal Medicine 08/18/24 Occupational Therapy Professor Relationship Specialty Start Date End Date Akin Elliott MD [address] [place] [address] PCP - General 08/17/04 Carlee Tyler, ENGINE MANAGER.MANAGER WIND [address] [place] [address] Staff Development Educator Internal Medicine 08/18/24 Cheyenne Gilbert APRN.BIOMASS PLANT TECHNICIAN [address] [place] [address] Staff Development Educator Internal Medicine 08/18/24 Occupational Therapy Professor Relationship Specialty Start Date End Date Akin Elliott MD [address] [place] [address] PCP - General 08/17/04 Carlee Tyler, ENGINE MANAGER.MANAGER WIND [address] [place] [address] Staff Development Educator Internal Medicine 08/18/24 Cheyenne Gilbert, ENGINE MANAGER.BIOMASS PLANT TECHNICIAN [address] [place] [address] [facility] Internal Medicine 08/18/24 Occupational Therapy Professor Relationship Specialty Start Date End Date Akin Elliott MD [address] [place] [address] PCP - General 08/17/04 Carlee Tyler, ENGINE MANAGER.MANAGER WIND [address] [place] [address] Staff Development Educator Internal Medicine 08/18/24 Cheyenne Gilbert ENGINE MANAGER.BIOMASS PLANT TECHNICIAN [address] [place] [address] [facility] Internal Medicine 08/18/24 Occupational Therapy Professor Relationship Specialty Start Date End Date Akin Elliott MD [address] [place] [address] PCP - General 08/17/04 Carlee Tyler, ENGINE MANAGER.MANAGER WIND [address] [place] [address] [facility] Internal Medicine 08/18/24 Cheyenne Gilbert, ENGINE MANAGER.BIOMASS PLANT TECHNICIAN [address] [place] [address] [facility] Internal Medicine 12/02/24 Occupational Therapy Professor Relationship Specialty Start Date End Date Akin Elliott MD [address] [place] [address] PCP - General 08/17/04 Carlee Tyler, ENGINE MANAGER.MANAGER WIND [address] [place] [address] Staff Development Educator Internal Medicine 08/18/24 Cheyenne Gilbert ENGINE MANAGER.BIOMASS PLANT TECHNICIAN [address] [place] [address] Staff Development Educator Internal Medicine 12/02/24 Occupational Therapy Professor Relationship Specialty Start Date End Date Akin Elliott MD [address] [place] [address] PCP - General 08/17/04 Carlee Tyler, ENGINE MANAGER.MANAGER WIND [address] [place] [address] Staff Development Educator Internal Medicine 08/18/24 Cheyenne Gilbert ENGINE MANAGER.BIOMASS PLANT TECHNICIAN [address] [place] [address] Staff Development Educator Internal Medicine 12/02/24 Occupational Therapy Professor Relationship Specialty Start Date End Date Akin Elliott MD [address] [place] [address] PCP - General 08/17/04 Cheyenne Gilbert ENGINE MANAGER.BIOMASS PLANT TECHNICIAN [address] [place] [address] Staff Development Educator Internal Medicine 12/02/24 Carlee Tyler, ENGINE MANAGER.MANAGER WIND [address] [place] [address] Staff Development Educator Internal Medicine 01/28/25 Occupational Therapy Professor Relationship Specialty Start Date End Date Akin Elliott MD [address] [place] [address] PCP - General 08/17/04 Cheyenne Gilbert ENGINE MANAGER.BIOMASS PLANT TECHNICIAN [address] [place] [address] Staff Development Educator Internal Medicine 12/02/24 Carlee Tyler, ENGINE MANAGER.MANAGER WIND [address] [place] [address] Staff Development Educator Internal Medicine 01/28/25 Occupational Therapy Professor Relationship Specialty Start Date End Date Akin Elliott MD [address] [place] [address] PCP - General 08/17/04 Cheyenne Gilbert ENGINE MANAGER.BIOMASS PLANT TECHNICIAN [address] [place] [address] Staff Development Educator Internal Medicine 12/02/24 Carlee Tyler, ENGINE MANAGER.MANAGER WIND [address] [place] [address] Staff Development Educator Internal Medicine 01/28/25 Occupational Therapy Professor Relationship Specialty Start Date End Date Akin Elliott MD [address] [place] [address] PCP - General 08/17/04 Cheyenne Gilbert ENGINE MANAGER.BIOMASS PLANT TECHNICIAN [address] [facility] [place] [address] Staff Development Educator Internal Medicine 12/02/24 Carlee Tyler, ENGINE MANAGER.MANAGER WIND [address] [place] [address] [facility] Internal Medicine 01/28/25 Occupational Therapy Professor Relationship Specialty Start Date End Date Akin Elliott MD [address] [place] [address] PCP - General 08/17/04 Cheyenne Gilbert ENGINE MANAGER.BIOMASS PLANT TECHNICIAN [address] [place] [address] [facility] Internal Medicine 12/02/24 Carlee Tyler, ENGINE MANAGER.MANAGER WIND [address] [place] [address] [facility] Internal Medicine 01/28/25 Occupational Therapy Professor Relationship Specialty Start Date End Date Akin Elliott MD [address] [place] [address] PCP - General 08/17/04 Cheyenne Gilbert, ENGINE MANAGER.BIOMASS PLANT TECHNICIAN [address] [place] [address] [facility] Internal Medicine 12/02/24 Carlee Tyler, ENGINE MANAGER.MANAGER WIND [address] [place] [address] [facility] Internal Medicine 01/28/25 Goals (unrecognized section and content) Goals may be documented in a n alternate sectionGoals may be documented in an alternate sectionGoals may be documented in an alternate sectionGoals may be documented in an alternate sectionGoals may be documented in an alternate section INFORMATION SOURCE (unrecogn ized section and content) DATE CREATED AUTHOR 04/19/2024 [facility] DATE CREATED AUTHOR AUTHOR'S ORGANIZ ATION 11/05/2024 [facility] DATE CREATED AUTHOR AUTHOR'S ORGANIZ ATION 07/08/2025 [facility] FOR RECORDS PERTAINING TO PATIENTS WHO ARE OR HAVE BEEN ENROLLED IN A CHEMICAL DEPENDENCY/SUBSTANCEABUSE PROGRAM, SOME INFORMATION MAY BE OMITTED. This clinical summary was aggregated from multiple sources. Caution should be exercised in using it in the provision of clinical care. This summary normalizes information from multiple sources, and as a consequence, information in this document may materially change the coding, format and clinical context of patient data. In addition, data may be omitted in some cases. CLINICAL DECISIONS SHOULD BE BASED ON THE PRIMARY CLINICAL RECORDS. [employer] provides no warranty or guarantee of the accuracy or completeness of information in this document.
[2025-09-06] MEDS: 0.9% Normal Saline (1000mL) 1,000 ML 999 ML IV (16:13)
[2025-09-06] MEDS: DiphenhydrAMINE 50 MG/ML Syringe 25 MG IV (16:14)
[2025-09-06 16:29] VITALS: BP 126/80; PULSE 90; RESP 20; O2SAT 99
[2025-09-06 17:42] VITALS: BP 146/69; PULSE 79; RESP 14; TEMP 37; O2SAT 100
[2025-09-06 18:00] VITALS: BP 171/85; PULSE 86; RESP 19; O2SAT 98
[2025-09-06 19:08] VITALS: BP 141/105; BP 143/105; PULSE 85; PULSE 88; RESP 16; RESP 18; TEMP 36.9; O2SAT 98
[2025-09-06 19:09] LABS: Mucous, Urine 0 SEEN /hpf (<or=2+); Red Blood Cells-Urine 0 SEEN /hpf (0-5); Squamous Epithelial Cells - UA 0 SEEN /hpf (5-10)
[2025-09-06 19:10] LABS: Color, Urine Yellow (Yellow); Glucose, Dipstick Normal (Normal); Ketone-Dipstick 5 mg/dl (Negative); Leukocyte Esterase-Dipstick Negative /ul (Negative); Nitrite-Dipstick Negative (Negative); Occult Blood-Urine Negative /ul (Negative); Protein-Dipstick Negative (Negative); Specific Gravity, Urine 1.010 (1.002-1.030); Urine Bilirubin Dipstick Negative (Negative)
[2025-09-06 20:27] VITALS: BP 149/80; PULSE 86; RESP 11; TEMP 36.8; O2SAT 96
== END 2025-09-06 20:43 | disposition home or self-care (01) ==
PROVIDERS: Emergency Provider Emergency Medicine; PCP Internal Medicine; Visit Provider Emergency Medicine
DX: K52.9 Noninfective gastroenteritis and colitis, unspecified (principal); G43.909 Migraine, unspecified, not intractable, without status migrainosus; I10 Essential (primary) hypertension; Z87.891 Personal history of nicotine dependence
CPT/HCPCS: 74177; 80053; 81001; 82274; 83690; 85025; 96361; 96372; 96374; 96375; 96376; 99282; Q9967; A4216; J2405; J3030